=== PATIENT | female | born 2005 | race Native Hawaiian/Other Pacific Islander ===

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

== ENCOUNTER 2024-06-10 11:23 | Outpatient (OUT) | payer OTHER, SELFPAY ==
[2024-06-10 12:31] LABS: HCG Quantitative 69 mIU/mL
== END 2024-06-10 11:24 | disposition home or self-care (01) ==
LOC: LAB 11:26
PROVIDERS: PCP Nurse Practitioner Family; Visit Provider Obstetrics & Gynecology
DX: N92.6 Irregular menstruation, unspecified (principal)
CPT/HCPCS: 36415; 84702

== ENCOUNTER 2024-06-12 11:02 | Outpatient (RCR) | payer OTHER, SELFPAY ==
[2024-06-12 11:52] LABS: HCG Quantitative 42 mIU/mL
== END 2024-06-19 08:23 | disposition home or self-care (01) ==
LOC: LAB 11:02
PROVIDERS: PCP Nurse Practitioner Family; Visit Provider Obstetrics & Gynecology
DX: N92.6 Irregular menstruation, unspecified (principal)
CPT/HCPCS: 36415; 84702

== ENCOUNTER 2024-06-14 13:00 | Outpatient (OUT) | payer OTHER, SELFPAY ==
[2024-06-14 14:07] LABS: HCG Quantitative 18 mIU/mL
== END 2024-06-14 13:01 | disposition home or self-care (01) ==
PROVIDERS: PCP Nurse Practitioner Family; Visit Provider Obstetrics & Gynecology
DX: N92.6 Irregular menstruation, unspecified (principal)
CPT/HCPCS: 36415; 84702

== ENCOUNTER 2024-06-25 14:21 | Outpatient (OUT) | payer OTHER, SELFPAY ==
--- OUTSIDE RECORDS SUMMARY | 2024-06-25 14:32 | XMS_ITS | CCD ---
Author Organization [facility] Care Team Providers Care Hospital Unit Clerk Name Role Phone Iker OLIVAS Primary Care Physician Maddie Dickson Unavailable Lynette Flores Unavailable MD Iker Olivas Primary Care Provider MD Kole Baron Attending Provider Lanny Nieves Unavailable IKER OLIVAS Referring Unavailable IKER OLIVAS Primary Care Unavailable KAISER LOVE Attending Unavailable HAY ., DR GARZA Admitting Unavailable HAY ., DR GARZA Attending Unavailable REQUEST, DR ROMERO LISTED Primary Care Unavaila ble HAY ., DR GARZA Consulting Unavailable MISC, DR ROD Admitting Unavailable MISC, DR ROD Attending Unavailable WNEK, DR IKER Eddy Primary Care Unavailable MISC, DR ROD Consulting Unavailable REQUEST, DR ROMERO LISTED Primary Care Unavaila ble HAY ., DR GARZA Admitting Unavailable HAY ., DR GARZA Attending Unavailable HAY ., DR GARZA Consulting Unavailable REQUEST, DR ROMERO LISTED Primary Care Unavaila ble PAY ., DR DEL ROSARIO Admitting Unavailable PAY ., DR DEL ROSARIO Attending Unavailable ZIEBER, DR DOMO Eddy Consulting Unavailable PAY ., DR DEL ROSARIO Consulting Unavailable STRAWSER, JONI Consulting Unavailable EDUARDO SANTANA Consulting Unavailable [place] Attending Unavailable TRINITY Almendarez Attending Provider [phone] Isabella Almendarez Attending Unavailable Isabella Almendarez Admitting Unavailable NON STAFF Primary Care Unavailable Allergies Allergy Classification Reported Allergen(s) Allergy Type Date of Onset Reaction(s) Facility (9 sources) Latex; Translations: [LATEX] Drug allergy 2 Eruption of skin (disorder) [facility] (3 sources) contact metals 1 Drug allergy Eruption of skin (disorder) [facility] [place] Comment on above: family states pt dev elops rash to alumininum in deoderant, fake jewelry (possibly kp?), etc (3 sources) Coconut extract; Translations: [coconut] Drug Allergy 2 Nausea [facility] (1 source) Iron; Translations: [IRON] Drug Allergy 2 [facility] (2 sources) contact metal agent Drug allergy (disorder) 4 Rash [facility] (1 source) contact metals; Translations: [contact metals] Propensity to adverse reactions (disorder) [facility] (1 source) contact metal agent Drug allergy (disorder) 4 [facility] Medications Current Medications Medication Drug Class(es) Dates Sig (Normalized) Sig (Original) albuterol HFA 90 mcg/inh MDI (2 sources) Start: 03-02-2022 take 2 puff(s) by inhalation every four hours as needed for wheezing albuterol HFA 90 mcg/inh MDI 2 puff(s), Inhalation, q4hr as needed for wheezing, 18 gm, Refill(s) 0, [facility]/pharmacy #[id number], 164, cm, 03/02/22 14:37:00 EDT, Height/Length Dosing, 54.8, kg, 03/02/22 14:37:00 EDT, Weight Dosing Start Date: 03/02/22 Status: Ordered amoxicillin 875 mg oral tablet (1 source) Penicillin-class Antibacterial Start: 07-04-2022 take 1 tablet by mouth every twelve hours Amoxicillin 875 MG 1 tablet Orally every 12 hrs for 7 days Jun, Active amoxicillin 875 mg / clavulanate 125 mg oral tablet (1 source) Penicillin-class Antibacterial Start: 03-16-2022 End: 03-30-2022 take 1 tablet by mouth every twelve hours Augmentin 875 mg oral tablet = 1 tab(s), Oral, q12hr, X 14 day(s), # 28 tab(s), Refills(s) 0, Pharmacy: [facility]/pharmacy #[id number], 161, cm, 03/16/22 14:08:00 EDT, Height/Length Dosing, 55.9, kg, 03/16/22 14:08:00 EDT, Weight Dosing Start Date: 03/16/22 Stop Date: 03/30/22 Status: Ordered cephalexin 500 mg oral capsule (2 sources) Cephalosporin Antibacterial Start: 04-18-2024 take 500 mg by mouth three times daily Cephalexin Active 500 MG PO Three times daily 09 06April 18, 2024 12:00am Start: 02-25-2022 take 1 capsule by [facility] every eight hours Cephalexin 500 MG 1 capsule Orally tid for 10 day(s) Feb, Active cetirizine hydrochloride 10 mg oral tablet (4 sources) Histamine-1 Receptor Antagonist Start: 01-11-2023 take 1 tablet by mouth every twenty-four hours Cetirizine HCl 10 MG 1 tablet Orally Once a day for 30 day(s) Dec, Active Start: 03-02-20[address] [facility] once daily as needed cetirizine 10 mg Tab 10 mg = 1 tab(s), Oral, Daily, PRN for allergy symptoms, # 30 tab(s), Refills(s) 0, Pharmacy: [facility]/pharmacy #[id number], 164, cm, 03/02/22 14:37:00 EDT, Height/Length Dosing, 54.8, kg, 03/02/22 14:37:00 EDT, Weight Dosing Start Date: 03/02/22 Status: Ordered chlorhexidine gluconate 1.2 mg/ml mouthwash (1 source) Start: 07-04-2022 take 10 mL by mouth twice daily Peridex 0.12 % gargle 10 ml Mouth/Throat twice daily Jun, Active fluticasone propionate 0.05 mg/actuat metered dose nasal spray (2 sources) Corticosteroid Start: 01-11-2023 take 1 spray(s) nasal route once daily Fluticasone Propionate 50 MCG/ACT 1 spray in each nostril Nasally Once a day for 30 day(s) Dec, Active methylPREDNISolone 4 mg oral tablet (1 source) Corticosteroid Start: 02-25-2022 Medrol 4 MG as directed Orally as directed for 6 days Feb, Active montelukast 10 mg oral tablet (3 sources) Leukotriene Receptor Antagonist Start: 02-22-2022 take 1 tablet by mouth once daily in the evening montelukast 10 mg Tab 10 mg = 1 tab(s), Oral, qPM, # 30 tab(s), Refills(s) 0, Pharmacy: [facility]/pharmacy #[id number], 165.5, cm, 02/22/22 13:27:00 EDT, Height/Length Dosing, 54, kg, 02/22/22 13:27:00 EDT, Weight Dosing Start Date: 02/22/22 Status: Ordered Completed/Discontinued Medications Medication Drug Class(es) Dates Sig (Normalized) Sig (Original) sulfamethoxazole 800 mg / trimethoprim 160 mg oral tablet (1 source) Dihydrofolate Reductase Inhibitor Antibacterial, Sulfonamide Antimicrobial Start: 04-18-2024 End: 04-18-2024 take 1 tablet by mouth every twelve hours Sulfamethoxazole- Trimethoprim Discontinued 1 TAB PO Every 12 hours 14 7 April 18, 2024 12:00am April 18, 2024 3:05pm Problems Active Problems Problem Classification Problem Date Documented Date Episodic/Chronic Allergic reactions (3 sources) Chronic eczema 12-10-2020 Episodic Anxiety disorders (4 sources) Generalized anxiety disorder; Translations: [Generalized anxiety disorder] Onset: 02-22-2022 Chronic Bacterial infection; unspecified site (1 source) Bacterial infectious disease; Translations: [Other specified bacterial agents as the cause of diseases classified elsewhere] Onset: 03-16-2022 Episodic Genitourinary symptoms and ill-defined conditions (1 source) Dysuria; Translations: [Dysuria] Onset: 04-18-2024 Episodic Headache; including migraine (5 sources) Frequent headache; Translations: [Chronic headache disorder] 01-07-2022 Episodic Other connective tissue disease (3 sources) Hand pain 12-10-2020 Episodic Other female genital disorders (3 sources) Abnormal uterine and vaginal bleeding, unspecified; Translations: [ABNORMAL UTERINE VAGINAL BLEED UNS] Onset: 09-06-2022 Chronic Other female genital disorders (1 source) Other specified abnormal uterine and vaginal bleeding; Translations: [OTH SPEC ABNORMAL UTERINE VAG BLEED] Onset: 09-07-2022 Chronic Other lower respiratory disease (10 sources) Dyspnea; Translations: [Shortness of breath] Onset: 03-02-2022 Episodic Other upper respiratory disease (3 sources) Disorder of pharynx 12-10-2020 Episodic Otitis media and related conditions (2 sources) Other acute nonsuppurative otitis media, left ear Episodic Residual codes; unclassified (3 sources) Feeling nervous 01-07-2022 Episodic Superficial injury; contusion (3 sources) Contusion of elbow 01-07-2022 Episodic Unclassified (3 sources) Finding of body mass index 12-10-2020 Unclassified (3 sources) Patient encounter status 12-09-2020 Urinary tract infections (2 sources) Acute urinary tract infection; Translations: [Urinary tract infection, site not specified] 04-18-2024 Episodic Viral infection (3 sources) Verruca plantaris 01-07-2022 Episodic Past or Other Problems Problem Classification Problem Date Documented Da te Episodic/Chronic Abdominal pain (7 sources) Stomach ache; Translations: [Lower abdominal pain, unspecified] Onset: 11-25-2022 01-07-2022 Episodic Chronic obstructive pulmonary disease and bronchiectasis (1 source) Bronchitis, not specified as acute or chronic Onset: 02-25-2022 Resolved: 02-25-2022 Episodic Conditions associated with dizziness or vertigo (3 sources) Dizziness Onset: 01-29-2019 12-10-2020 Episodic Disorders of teeth and jaw (1 source) Periapical abscess without sinus Onset: 07-04-2022 Resolved: 07-04-2022 Episodic Fracture of upper limb (6 sources) Closed fracture of radius; Translations: [Radial fracture] Resolved: 08-21-2013 Episodic Nonspecific chest pain (4 sources) Chest pain, unspecified; Translations: [Other chest pain] Onset: 11-03-2022 Episodic Other and unspecified benign neoplasm (4 sources) Benign neoplasm of unspecified site of unspecified orbit; Translations: [BENIGN NEOPLASM UNS SITE UNS ORBIT] Onset: 08-16-2022 Episodic Other injuries and conditions due to external causes (1 source) Unspecified injury of left elbow, initial encounter Onset: 01-10-2022 Resolved: 01-10-2022 Episodic Other upper respiratory infections (19 sources) Acute bacterial sinusitis; Translations: [Acute pharyngitis] Onset: 11-03-2021 Resolved: 02-25-2022 01-07-2022 Episodic Syncope (3 sources) Syncope Onset: 01-29-2019 12-10-2020 Episodic Results Test Name Value Interpretation Reference Range Facil ity Urine Cultureon 04-18-2024 Bacteria identified Cx Nom (U) 50,000 colonies/ml mixed bacterial skin contaminants 2 Days PERFORMED BY: [place] [address] PATHOLOGIST CHOKE REAMER MADAN TRIVEDI M.D. Normal [facility] Comment on above: Performed By: #### C UU #### [address] Physician Referralon 024 Physician Referral [id number] Normal [facility] ER URINE PROFILEon 3 Bilirubin Ql (U) Negative Normal NEGATIVE The [facility] Comment on above: Performed By: #### E RUR, PREGU #### [facility] [address] [place] [address] Dr. Mikala Ramsay Clarity (U) CLEAR Normal CLEAR [facility] Comment on above: Performed By: #### E RUR, PREGU #### [facility] [address] [address] [address] Mikala Ramsay Color (U) LT. YELLOW Normal YELLOW [facility] Comment on above: Performed By: #### E RUR, PREGU #### [facility] [address] [address] [address] Mikala Ramsay ERUAHD A micrscopic examination will be performed if indicated. Normal [facility] Comment on above: Performed By: #### E RUR, PREGU #### [facility] [address] [address] [address] Mikala Ramsay Glucose Ql (U) Negative Normal NEGATIVE The [facility] Comment on above: Performed By: #### E RUR, PREGU #### [facility] [address] [address] [address] Mikala Ramsay Hemoglobin Ql (U) Negative Normal NEGATIVE [facility] Comment on above: Performed By: #### E RUR, PREGU #### [facility] [address] [place] [address] Dr. Mikala Ramsay Ketones Ql (U) Negative Normal NEGATIVE [facility] Comment on above: Performed By: #### E RUR, PREGU #### [facility] [address] [place] [address] Dr. Mikala Ramsay LEUKOCYTES Negative Normal NEGATIVE [facility] Comment on above: Performed By: #### E RUR, PREGU #### [facility] [address] [place] [address] Dr. Mikala Ramsay Nitrite Ql (U) Negative Normal NEGATIVE [facility] Comment on above: Performed By: #### E RUR, PREGU #### [facility] [address] [place] [address] Dr. Mikala Ramsay pH (U) 8.0 [pH] Normal 5-9 [facility] Comment on above: Performed By: #### E RUR, PREGU #### [facility] [address] [place] [address] Dr. Mikala Ramsay SPEC GRAVITY 1.015 Normal 1.005-<=1.025 [facility] Comment on above: Performed By: #### E RUR, PREGU #### [facility] [address] [place] [address] Dr. Mikala Ramsay UA PROTEIN Negative Normal NEGATIVE/ TRACE [facility] Comment on above: Performed By: #### E RUR, PREGU #### [facility] [address] [place] [address] Dr. Mikala Ramsay UR MICRO IND NOT INDICATED Normal [facility] Comment on above: Performed By: #### E RUR, PREGU #### [facility] [address] [place] [address] Dr. Mikala Ramsay Urobilinogen Qn (U) 0.2 {Jose'U}/dL Normal 0.2 - 1.0 [facility] Comment on above: Performed By: #### E RUR, PREGU #### [facility] [address] [place] [address] Dr. Mikala Ramsay URon 11-25-2022 , QUAL Negative Normal NEGATIVE [facility] Comment on above: Performed By: #### E RUR, PREGU #### [facility] [address] [place] [address] Dr. Mikala Ramsay US PELVIS TRANSVAGon 023 US PELVIS TRANSVAG US PELVIS TRANSVAG HISTORY: Abdominal pain COMPARISONS: None TECHNIQUE: Real-time sonography of the pelvis was performed. FINDINGS: UTERUS: Normal in size and echogenicity. The uterus measures 7.8 x 4.8 x 3.8 cm. MYOMETRIUM:Unremark able. ENDOMETRIUM: The endometrium is within normal limits. The endometrium measures1.3 cm which is within normal limits. RIGHT OVARY: Within normal limits without suspicious masses or cyst. There is normal blood flow. The right ovary measures 3.3 x 2.4 x 2.1 cm. LEFT OVARY: Within normal limits without suspicious masses or cyst. There is normal blood flow. The left ovary measures 3.7 x 3.0 x 1.7 cm. OTHER:Trace amount of physiologic free fluid adjacent to the right ovary and within the cul-de-sac. IMPRESSION: Unremarkable pelvic ultrasound. Electronically authenticated by: JONI MORALES Date: 2022-11-25 17:05 Normal [facility] XR KUB 1 VIEWon 11-25-2022 XR KUB 1 VIEW EXAMINATION: XR KUB 1 VIEW HISTORY: Pain ; lower abdominal pain, cramping COMPARISON: XR KUB 11/21/2021 FINDINGS: BOWEL GAS PATTERN: No abnormal dilation or deviation. CALCIFICATIONS: None significant. OTHER: Negative. No abnormal gaseous collections. IMPRESSION: 1. No acute or suspicious findings to account for patient's symptoms. Electronically authenticated by: DOMO AN Date: 2022-11-25 14:56 Normal [facility] CBC AUTO DIFFon 09-06-2022 BASO # 0.0 103/ul Normal 0.0-0.1 [facility] Comment on above: Performed By: #### C BC #### [facility] [address] [place], [place] [address] Dr. Mikala Ramsay Basophils/100 WBC (Bld) 0.3 % Normal 0.2-2.0 [facility] Comment on above: Performed By: #### C BC #### [facility] [address] [place] [address] Dr. Mikala Ramsay EO # 0.0 103/ul Normal 0.0-0.7 [facility] Comment on above: Performed By: #### C BC #### [facility] [address] [place] [address] Dr. Mikala Ramsay Eosinophils/100 WBC (Bld) 0.6 % Critically low 0.9-7.0 [facility] Comment on above: Performed By: #### C BC #### [facility] [address] [place] [address] Dr. Mikala Ramsay Erythrocyte distribution width (RBC) [Ratio] 14.0 % Normal 11.0-15.0 [facility] Comment on above: Performed By: #### C BC #### [facility] [address] [place] [address] Dr. Mikala Ramsay Hematocrit (Bld) [Volume fraction] 38.7 % Normal 36.0-48.0 [facility] Comment on above: Performed By: #### C BC #### [facility] [address] [place] [address] Dr. Mikala Ramsay Hemoglobin (Bld) [Mass/Vol] 12.5 g/dL Normal 12.0-16.0 [facility] Comment on above: Performed By: #### C BC #### [facility] [address] [place] [address] Dr. Mikala Ramsay IG # 0.02 10e3/ul Normal 0.00-0.03 [facility] Comment on above: Performed By: #### C BC #### [facility] [address] [place] [address] Dr. Mikala Ramsay IG % 0.3 % Normal 0.0-0.5 [facility] Comment on above: Performed By: #### C BC #### [facility] [address] [place] [address] Dr. Mikala Ramsay LYMPH # 1.2 103/ul Normal 1.2-3.8 [facility] Comment on above: Performed By: #### C BC #### [facility] [address] [address] [address] Mikala Ramsay Lymphocytes/100 WBC (Bld) 17.4 % Critically low 20.5-60.0 [facility] Comment on above: Performed By: #### C BC #### [facility] [address] [address] [address] Mikala Ramsay MANUAL DIFF REQ NO Normal [facility] Comment on above: Performed By: #### C BC #### [facility] [address] [place] [address] Dr. Mikala aRmsay MCH (RBC) [Entitic mass] 26.0 pg Critically low 26.7-34.0 [facility] Comment on above: Performed By: #### C BC #### [facility] [address] [place] [address] Dr. Mikala Ramsay MCHC (RBC) [Mass/Vol] 32.3 g/dL Normal 29.9-35.2 [facility] Comment on above: Performed By: #### C BC #### [facility] [address] [place] [address] Dr. Mikala Ramsay MCV (RBC) [Entitic vol] 80.5 fL Critically low 81.0-99.0 [facility] Comment on above: Performed By: #### C BC #### [facility] [address] [place] [address] Dr. Mikala Ramsay MONO # 0.4 103/ul Normal 0.3-0.8 [facility] Comment on above: Performed By: #### C BC #### [facility] [address] [place] [address] Dr. Mikala Ramsay Monocytes/100 WBC (Bld) 5.9 % Normal 1.7-12.0 [facility] Comment on above: Performed By: #### C BC #### [facility] [address] [place] [address] Dr. Mikala Ramsay NEUT # 5.0 103/ul Normal 1.4-6.5 [facility] Comment on above: Performed By: #### C BC #### [facility] [address] [address] [address] Mikala Ramsay Neutrophils/100 WBC (Bld) 75.5 % Critically high 43.0-75.0 [facility] Comment on above: Performed By: #### C BC #### [facility] [address] [place] [address] Dr. Mikala Ramsay Platelet mean volume (Bld) [Entitic vol] 9.2 fL Critically low 9.5-13.5 [facility] Comment on above: Performed By: #### C BC #### [facility] [address] [address] [address] Mikala Ramsay PLT 286 103/ul Normal 150-450 [facility] Comment on above: Performed By: #### C BC #### [facility] [address] [place] [address] Dr. Mikala Ramsay RBC 4.81 106/ul Normal 4.20-5.40 [facility] Comment on above: Performed By: #### C BC #### [facility] [address] [place] [address] Dr. Mikala Ramsay WBC 6.7 103/ul Normal 4.0-11.0 [facility] Comment on above: Performed By: #### C BC #### [facility] [address] [place] [address] Dr. Mikala Ramsay PREG HCG QUALon 09-06-2022 , QUAL Negative Normal NEGATIVE [facility] Comment on above: Performed By: #### P REG #### [facility] [address] [place] [address] Dr. Mikala Ramsay PROF CHEM 8 (BAS METB)on Anion gap [Moles/Vol] 11.1 mmol/L Normal [facility] Comment on above: Performed By: #### B MP #### [facility] [address] [place] [address] Dr. Mikala Ramsay Calcium [Mass/Vol] 9.0 mg/dL Normal 8.5-10.1 [facility] Comment on above: Performed By: #### B MP #### [facility] [address] [address] [address] Mikala Ramsay Chloride [Moles/Vol] 106 mmol/L Normal 98-107 [facility] Comment on above: Performed By: #### B MP #### [facility] [address] [address] [address] Mikala Ramsay CO2 [Moles/Vol] 25.6 mmol/L Normal 21.0-32.0 [facility] Comment on above: Performed By: #### B MP #### [facility] [address] [address] [address] Mikala Ramsay Creatinine [Mass/Vol] 0.72 mg/dL Normal 0.55-1.02 [facility] Comment on above: Performed By: #### B MP #### [facility] [address] [place] [address] Dr. Mikala Ramsay EGFR-AF CITIZEN OF [place] >60 Normal >=60 [facility] Comment on above: Performed By: #### B MP #### [facility] [address] [place] [address] Dr. Mikala Ramsay EGFR-NON AF CITIZEN OF [place] >60 Normal >=60 [facility] Comment on above: Performed By: #### B MP #### [facility] [address] [address] [address] Mikala Ramsay Glucose [Mass/Vol] 84 mg/dL Normal 74-106 [facility] Comment on above: Performed By: #### B MP #### [facility] [address] [place] [address] Dr. Mikala Ramsay Potassium [Moles/Vol] 3.7 mmol/L Normal 3.5-5.1 [facility] Comment on above: Performed By: #### B MP #### [facility] [address] [address] [address] Mikala Ramsay Sodium [Moles/Vol] 139 mmol/L Normal 136-145 [facility] Comment on above: Performed By: #### B MP #### [facility] [address] [address] [address] Mikala Rmasay Urea nitrogen [Mass/Vol] 10.0 mg/dL Normal 6.4-19.3 [facility] Comment on above: Performed By: #### B MP #### [facility] [address] [place] [address] Dr. Mikala Ramsay Urea nitrogen/Creatinin e [Mass ratio] 13.9 mg/mg Normal [facility] Comment on above: Performed By: #### B MP #### [facility] [address] [place] [address] Dr. Mikala Ramsay CBC AUTO DIFFon 08-16-2022 BASO # 0.0 103/ul Normal 0.0-0.1 [facility] Comment on above: Performed By: #### C BC #### [facility] [address] [place] [address] Dr. Mikala Ramsay Basophils/100 WBC (Bld) 0.6 % Normal 0.2-2.0 [facility] Comment on above: Performed By: #### C BC #### [facility] [address] [place] [address] Dr. Mikala Ramsay EO # 0.1 103/ul Normal 0.0-0.7 [facility] Comment on above: Performed By: #### C BC #### [facility] [address] [place] [address] Dr. Mikala Ramsay Eosinophils/100 WBC (Bld) 1.3 % Normal 0.9-7.0 [facility] Comment on above: Performed By: #### C BC #### [facility] [address] [place] [address] Dr. Mikala Ramsay Erythrocyte distribution width (RBC) [Ratio] 14.5 % Normal 11.0-15.0 [facility] Comment on above: Performed By: #### C BC #### [facility] [address] [place] [address] Dr. Mikala Ramsay Hematocrit (Bld) [Volume fraction] 37.6 % Normal 36.0-48.0 [facility] Comment on above: Performed By: #### C BC #### [facility] [address] [place] [address] Dr. Mikala Ramsay Hemoglobin (Bld) [Mass/Vol] 12.2 g/dL Normal 12.0-16.0 [facility] Comment on above: Performed By: #### C BC #### [facility] [address] [place] [address] Dr. Mikala Ramsay IG # 0.02 10e3/ul Normal 0.00-0.03 [facility] Comment on above: Performed By: #### C BC #### [facility] [address] [place] [address] Dr. Mikala Ramsay IG % 0.3 % Normal 0.0-0.5 [facility] Comment on above: Performed By: #### C BC #### [facility] [address] [place] [address] Dr. Mikala Ramsay LYMPH # 2.1 103/ul Normal 1.2-3.8 [facility] Comment on above: Performed By: #### C BC #### [facility] [address] [place] [address] Dr. Mikala Ramsay Lymphocytes/100 WBC (Bld) 33.4 % Normal 20.5-60.0 [facility] Comment on above: Performed By: #### C BC #### [facility] [address] [place] [address] Dr. Mikala Ramsay MANUAL DIFF REQ NO Normal [facility] Comment on above: Performed By: #### C BC #### [facility] [address] [place] [address] Dr. Mikala Ramsay MCH (RBC) [Entitic mass] 26.2 pg Critically low 26.7-34.0 [facility] Comment on above: Performed By: #### C BC #### [facility] [address] [place] [address] Dr. Mikala Ramsay MCHC (RBC) [Mass/Vol] 32.4 g/dL Normal 29.9-35.2 [facility] Comment on above: Performed By: #### C BC #### [facility] [address] [place] [address] Dr. Mikala Ramsay MCV (RBC) [Entitic vol] 80.7 fL Critically low 81.0-99.0 [facility] Comment on above: Performed By: #### C BC #### [facility] [address] [place] [address] Dr. Mikala Ramsay MONO # 0.4 103/ul Normal 0.3-0.8 [facility] Comment on above: Performed By: #### C BC #### [facility] [address] [place] [address] Dr. Mikala Ramsay Monocytes/100 WBC (Bld) 6.2 % Normal 1.7-12.0 [facility] Comment on above: Performed By: #### C BC #### [facility] [address] [place] [address] Dr. Mikala Ramsay NEUT # 3.7 103/ul Normal 1.4-6.5 [facility] Comment on above: Performed By: #### C BC #### [facility] [address] [place] [address] Dr. Mikala Ramsay Neutrophils/100 WBC (Bld) 58.2 % Normal 43.0-75.0 [facility] Comment on above: Performed By: #### C BC #### [facility] [address] [place] [address] Dr. Mikala Ramsay Platelet mean volume (Bld) [Entitic vol] 9.3 fL Critically low 9.5-13.5 [facility] Comment on above: Performed By: #### C BC #### [facility] [address] [place] [address] Dr. Mikala Ramsay PLT 310 103/ul Normal 150-450 [facility] Comment on above: Performed By: #### C BC #### [facility] [address] [place] [address] Dr. Mikala Ramsay RBC 4.66 106/ul Normal 4.20-5.40 [facility] Comment on above: Performed By: #### C BC #### [facility] [address] [place] [address] Dr. Mikala Ramsay WBC 6.3 103/ul Normal 4.0-11.0 [facility] Comment on above: Performed By: #### C BC #### [facility] [address] [address] [address] Mikala Ramsay XR elbow LT min 3V*on 2021 XR elbow LT min 3V* [facility] Other XR elbow LT min 3V* [facility] Other XR elbow LT min 3V* [address] [place] [address] [facility] Other XR elbow LT min 3V* [place] [address] [facility] Other XR elbow LT min 3V* XRay Report [facility] Other XR elbow LT min 3V* Signed [facility] Other XR elbow LT min 3V* Patient: Shilpi Ware MR#: [id number] [facility] Other XR elbow LT min 3V* : 2005 Acct:[id number] [facility] Other XR elbow LT min 3V* Age/Sex: 16 / F ADM Date: 01/10/22 [facility] Other XR elbow LT min 3V* Loc: XDUCLY Room: Type: [facility] Other XR elbow LT min 3V* Attending Dr: Lynette GUILLERMO [facility] Other XR elbow LT min 3V* Ordering Provider: LYNETTE FLORES [facility] Other XR elbow LT min 3V* Date of Service: 01/10/22 [facility] Other XR elbow LT min 3V* XR/XR elbow LT min 3V*: Injury of left elbow, initial encounter [facility] Other XR elbow LT min 3V* Copies to: LYNETTE FLORES DENTAL SALES REPRESENTATIVE-C [facility] Other XR elbow LT min 3V* XR elbow LT min 3V* 01/10/2022 10:51 AM [facility] Other XR elbow LT min 3V* SIGNS AND SYMPTOMS: Injury of left elbow, left elbow pain [facility] Other XR elbow LT min 3V* PROTOCOL: Frontal, lateral, and oblique radiographs of the left elbow [facility] Other XR elbow LT min 3V* COMPARISON: None [facility] Other XR elbow LT min 3V* FINDINGS: [facility] Other XR elbow LT min 3V* There is no fracture or dislocation. No joint effusion. No soft tissue swelling. The joint spaces [facility] Other XR elbow LT min 3V* are preserved. [facility] Other XR elbow LT min 3V* XR/XR elbow LT min 3V* [facility] Other XR elbow LT min 3V* IMPRESSION: [facility] Other XR elbow LT min 3V* No acute bony injury. [facility] Other XR elbow LT min 3V* Impression dictated by: Johnson Grijalva M.D.01/10/2022 11:26 AM [facility] Other XR elbow LT min 3V* Dictation Location: [facility] Other XR elbow LT min 3V* Transcribed By: YESSY 01/10/22 [facility] Other XR elbow LT min 3V* Dictated By: Johnson Grijalva II, MD 01/10/22 [facility] Other XR elbow LT min 3V* Signed By: [facility] Other XR elbow LT min 3V* 01/10/22 1126 [facility] Other [facility] St[facility] 11-03-2021 S. pyogenes Org specific cx Ql (Throat) Negative [facility] Other Quick Strep [facility] Other Vital Signs Date Time Vital Sign Value Performing Clinician Facility 04-18-2024 14:41-0400 Body height 162.56 cm COPYING MACHINE REPAIRER Isabellayong Almendarez Work Phone: [facility] 04-18-2024 14:41-0400 Body mass index (BMI) [Ratio] 20.8 kg/m2 COPYING MACHINE REPAIRER Isabellayong Almendarez Work Phone: [facility] 04-18-2024 14:41-0400 Body temperature 98.8 [degF] COPYING MACHINE REPAIRERBetzy Almendarez Work Phone: [facility] 04-18-2024 14:41-0400 Body weight 54.99 kg COPYING MACHINE REPAIRER Isabella Tanesha Work Phone: [facility] 04-18-2024 14:41-0400 Heart rate 67 /min COPYING MACHINE REPAIRER Isabellayong Almendarez Work Phone: [facility] 04-18-2024 14:41-0400 Respiratory rate 18 /min COPYING MACHINE REPAIRER Isabellayong Almendarez Work Phone: [facility] 04-18-2024 14:41-0400 SaO2% (BldA) [Mass fraction] 98 % COPYING MACHINE REPAIRER Isabellayong Almendarez Work Phone: [facility] 01-11-2023 17:10-0500 Body height 163.83 cm Lynette Flores Other [facility] Other 01-11-2023 17:10-0500 Body mass index (BMI) [Ratio] 19.94 kg/m2 Lynette Flores Other [facility] Other 01-11-2023 17:10-0500 Body temperature 98.2 [degF] Lynette Flores Other [facility] Other 01-11-2023 17:10-0500 Body weight 53.52 kg Lynette Flores Other [facility] Other 01-11-2023 17:10-0500 Respiratory rate 18 /min Lynette Flores Other [facility] Other 01-11-2023 17:10-0500 SaO2% (BldA) [Mass fraction] 99 % Lynette Flores Other [facility] Other 12-13-2022 16:30-0500 Body height 162.56 cm Lanny Nieves Other [facility] Other 12-13-2022 16:30-0500 Body mass index (BMI) [Ratio] 20.25 kg/m2 Lanny Nieves Other [facility] Other 12-13-2022 16:30-0500 Body temperature 97.2 [degF] Lanny Nieves Other [facility] Other 12-13-2022 16:30-0500 Body weight 53.52 kg Lanny Nieves Other [facility] Other 12-13-2022 16:30-0500 Respiratory rate 18 /min Lanny Nieves Other [facility] Other 12-13-2022 16:30-0500 SaO2% (BldA) [Mass fraction] 99 % Lanny Nieves Other [facility] Other 07-04-2022 17:25-0400 Body height 163.83 cm Lynette Flores Other [facility] Other 07-04-2022 17:25-0400 Body mass index (BMI) [Ratio] 19.77 kg/m2 Lynette Flores Other [facility] Other 07-04-2022 17:25-0400 Body temperature 97.8 [degF] Lynette Batesault Other [facility] Other 07-04-2022 17:25-0400 Body weight 53.07 kg Lynette Flores Other [facility] Other 07-04-2022 17:25-0400 Diastolic blood pressure 65 mm[Hg] Lynette Batesault Other [facility] Other 07-04-2022 17:25-0400 Respiratory rate 18 /min Lynette Flores Other [facility] Other 07-04-2022 17:25-0400 SaO2% (BldA) [Mass fraction] 100 % Lynette Batesault Other [facility] Other 07-04-2022 17:25-0400 Systolic blood pressure 110 mm[Hg] Lynette Batesault Other [facility] Other 03-16-2022 14:01-0400 Blood Pressure Location Iker JHONNYEK [facility] [place] 03-16-2022 14:01-0400 Body temperature 97.7 [degF] Iker WNEK [facility] [place] 03-16-2022 14:01-0400 Diastolic blood pressure 68 mm[Hg] Iker WNEK [facility] [place] 03-16-2022 14:01-0400 Heart rate 76 /min Iker WNEK [facility] [place] 03-16-2022 14:01-0400 Respiratory rate 18 /min Iker WNEK [facility] [place] 03-16-2022 14:01-0400 SaO2% (BldA) [Mass fraction] 98 % Iker WNEK [facility] [place] 03-16-2022 14:01-0400 Systolic blood pressure 120 mm[Hg] Iker WNEK [facility] [place] 03-02-2022 14:34-0400 Blood Pressure Location Iker WNEK [facility] [place] 03-02-2022 14:34-0400 Body temperature 98.24 [degF] Iker WNEK [facility] [place] 03-02-2022 14:34-0400 Diastolic blood pressure 60 mm[Hg] Iker WNEK [facility] [place] 03-02-2022 14:34-0400 Heart rate 76 /min Iker WNEK [facility] [place] 03-02-2022 14:34-0400 Respiratory rate 18 /min Iker OLIVAS [facility] [place] 03-02-2022 14:34-0400 SaO2% (BldA) [Mass fraction] 98 % Iker OLIVAS [facility] [place] 03-02-2022 14:34-0400 Systolic blood pressure 118 mm[Hg] Iker OLIVAS [facility] [place] 02-25-2022 10:15-0400 Body height 163.83 cm Maddie Dickson Other [facility] Other 02-25-2022 10:15-0400 Body mass index (BMI) [Ratio] 19.26 kg/m2 Maddie Dickson Other [facility] Other 02-25-2022 10:15-0400 Body temperature 97.1 [degF] Maddie Dickson Other [facility] Other 02-25-2022 10:15-0400 Body weight 51.71 kg Maddie Dickson Other [facility] Other 02-25-2022 10:15-0400 SaO2% (BldA) [Mass fraction] 99 % Maddie Dickson Other [facility] Other 02-22-2022 13:23-0400 Blood Pressure Location Marli Chet [facility] [place] 02-22-2022 13:23-0400 Body temperature 97.34 [degF] Marli Chet [facility] [place] 02-22-2022 13:23-0400 Diastolic blood pressure 70 mm[Hg] Marli Chet [facility] [place] 02-22-2022 13:23-0400 Heart rate 80 /min Marliannia Rosenberg [facility] [place] 02-22-2022 13:23-0400 Respiratory rate 16 /min Marli Olds [facility] [place] 02-22-2022 13:23-0400 SaO2% (BldA) [Mass fraction] 98 % Marli Rosenberg [facility] [place] 02-22-2022 13:23-0400 Systolic blood pressure 118 mm[Hg] Marli Olds [facility] [place] 01-10-2022 11:30-0500 Body height 162.56 cm Lynette Flores Other [facility] Other 01-10-2022 11:30-0500 Body mass index (BMI) [Ratio] 21.45 kg/m2 Lynette Flores Other [facility] Other 01-10-2022 11:30-0500 Body temperature 96.9 [degF] Lynette Conrado Other [facility] Other 01-10-2022 11:30-0500 Body weight 56.7 kg Lynette Conrado Other [facility] Other 01-10-2022 11:30-0500 Diastolic blood pressure 69 mm[Hg] Lynette Flores Other [facility] Other 01-10-2022 11:30-0500 Respiratory rate 18 /min Lynette Flores Other [facility] Other 01-10-2022 11:30-0500 SaO2% (BldA) [Mass fraction] 99 % Lynette Flores Other [facility] Other 01-10-2022 11:30-0500 Systolic blood pressure 121 mm[Hg] Lynette Flores Other [facility] Other 11-03-2021 17:45-0500 Body height 162.56 cm Maddie Dickson Other [facility] Other 11-03-2021 17:45-0500 Body mass index (BMI) [Ratio] 21.8 kg/m2 Maddie Rosasmond Other [facility] Other 11-03-2021 17:45-0500 Body temperature 97.8 [degF] Maddie Rosasmond Other [facility] Other 11-03-2021 17:45-0500 Body weight 57.61 kg Maddie Rosasmond Other [facility] Other 11-03-2021 17:45-0500 Respiratory rate 18 /min Maddie Rosasmond Other [facility] Other 11-03-2021 17:45-0500 SaO2% (BldA) [Mass fraction] 99 % Maddie Yessi Other [facility] Other Encounters Encounter Date Encounter Type Care Provider Facility Start: 04-18-2024 End: 04-18-2024 ambulatory Isabella Almendarez [facility] Work Phone: Start: 04-18-2024 End: 04-18-2024 Departed Referred TRINITY Fajardoyong Almendarez Work Phone: [facility] [place] Work Phone: Start: 04-18-2024 End: 04-18-2024 Patient encounter procedure COPYING MACHINE REPAIRER Isabellayong Almendarez Work Phone: [facility] Work Phone: Start: 12-29-2023 ambulatory Facility:Daxa Dillon Start: 11-27-2023 End: 11-27-2023 ambulatory HO JAYLEN Not Available Start: 01-11-2023 End: 01-11-2023 ambulatory Lynette Flores Other [facility] Other Start: 01-11-2023 Office outpatient visit 25 minutes Lynette Flores [facility] Start: 12-13-2022 End: 12-13-2022 ambulatory Lanny Nieves Other [facility] Other Start: 12-13-2022 Office outpatient visit 15 minutes Lanny Nieves [facility] Start: 11-25-2022 End: 11-25-2022 ambulatory NONE LISTED REQUEST Facility:[facility] Start: 11-03-2022 End: 11-03-[address] NONE LISTED REQUEST Facility:[facility] Start: 09-06-2022 End: 09-06-[address] GREG BO . Facility:[facility] Start: 08-18-2022 End: 08-18-2022 ambulatory MD Iker Olivas Work Phone: [facility] Work Phone: Start: 08-18-2022 End: 08-18-2022 Departed Referred MD Iker Olivas Work Phone: [facility] [place] Start: 08-16-2022 End: 08-17-[address] DOCTOR BERRY Facility: Start: 07-04-2022 End: 07-04-2022 ambulatory Lynette Flores Other [facility] Other Start: 07-04-2022 Office outpatient visit 15 minutes Lynette Flores [facility] Start: 05-05-2022 End: 05-05-2022 ambulatory IKER OLIVAS [facility] Start: 03-16-2022 End: 03-16-2022 Patient encounter procedure Iker OLIVAS [facility] [place] Start: 03-02-2022 End: 03-02-2022 Patient encounter procedure Iker OLIVAS [facility] [place] Start: 02-25-2022 End: 02-25-2022 ambulatory Maddie Dickson Other [facility] Other Start: 02-25-2022 Office outpatient visit 25 minutes Maddiekevin Dickson [facility] Start: 02-22-2022 End: 02-22-2022 Patient encounter procedure Marli Rosenberg [facility] [place] Start: 01-10-2022 End: 01-10-2022 ambulatory Lynette Flores Other [facility] Other Start: 01-10-2022 Office outpatient visit 15 minutes Lynette Flores [facility] Start: 11-03-2021 End: 11-03-2021 ambulatory Maddie Yessi Other [place] [facility] Other Start: 11-03-2021 Office outpatient visit 15 minutes Maddie Yessi [facility] Procedures Date Procedure Procedure Detail Performing Clinician Start: 11-20-2007 Dentition (body structure) Marli Rosenberg Comment on above: multiple surgeries w agatha davis per Shilpi. Plan of Treatment Date Care Activity Detail Author Start: 04-19-2024 Bacteria identified in Urine by Culture [facility] Start: 04-18-2024 Bacteria identified in Urine by Culture [facility] Immunizations Immunization Date Immunization Notes Care Provider Gulshan nunes 12-10-2020 hepatitis A vaccine, pediatric/adolescent dosage, 2 dose schedule Marli Rosenberg [facility] [place] 12-10-2020 meningococcal polysaccharide (groups A, C, Y and W-135) diphtheria toxoid conjugate vaccine (MCV4P) Marli Rosenberg [facility] [place] 09-01-2016 meningococcal ACWY vaccine, unspecified formulation Marli Rosenberg [facility] [place] 09-01-2016 tetanus toxoid, redu matthieu diphtheria toxoid, and acellular pertussis vaccine, adsorbed Marliannia Rosenberg [facility] [place] 12-10-2013 influenza virus vacc ine, unspecified formulation Marli Rosenberg [facility] [place] 12-11-2008 influenza virus vacc ine, unspecified formulation Marli Rosenberg [facility] [place] 05-01-2008 diphtheria, tetanus toxoids and acellular pertussis vaccine Marli Rosenberg [facility] [place] 05-01-2008 hepatitis B vaccine, adult dosage Marli Rosenberg [facility] [place] 05-01-2008 measles, mumps and rubella virus vaccine Marli Rosenberg [facility] [place] 05-01-2008 poliovirus vaccine, unspecified formulation Marli Rosenberg [facility] [place] 05-01-2008 varicella virus vaccine Brittney otilia Rosenberg [facility] [place] 03-16-2005 diphtheria, tetanus toxoids and acellular pertussis vaccine Marli Rosenberg [facility] [place] 03-16-2005 haemophilus influenz ae type b vaccine, HbOC conjugate Marli Rosenberg [facility] [place] 03-16-2005 measles, mumps and rubella virus vaccine Marli Rosenberg [facility] [place] 03-16-2005 pneumococcal conjuga te vaccine, 13 valent Marli Rosenberg [facility] [place] 03-16-2005 varicella virus vaccine Brittney abeth Chet [facility] [place] 2004 influenza virus vacc ine, unspecified formulation Marliannia Rosenberg [facility] [place] 2004 diphtheria, tetanus toxoids and acellular pertussis vaccine Marli Norwood [facility] [place] 2004 haemophilus influenz ae type b vaccine, HbOC conjugate Marli Norwood [facility] [place] 2004 hepatitis B vaccine, adult dosage Marli Norwood [facility] [place] 2004 pneumococcal conjuga te vaccine, 13 valent Marli Norwood [facility] [place] 2004 poliovirus vaccine, unspecified formulation Marli Norwood [facility] [place] 2004 diphtheria, tetanus toxoids and acellular pertussis vaccine Marli Norwood [facility] [place] 2004 haemophilus influenz ae type b vaccine, HbOC conjugate Marli Norwood [facility] [place] 2004 hepatitis B vaccine, adult dosage Marli Norwood [facility] [place] 2004 pneumococcal conjuga te vaccine, 13 valent Marli Norwood [facility] [place] 2004 poliovirus vaccine, unspecified formulation Marli Norwood [facility] [place] 2004 diphtheria, tetanus toxoids and acellular pertussis vaccine Marli Rosenberg [facility] [place] 2004 haemophilus influenz ae type b vaccine, HbOC conjugate Marli Rosenberg [facility] [place] 2004 hepatitis B vaccine, adult dosage Marli Rosenberg [facility] [place] 2004 pneumococcal conjuga te vaccine, 13 valent Marli Rosenberg [facility] [place] 2004 poliovirus vaccine, unspecified formulation Marli Rosenberg [facility] [place] Payers Date Payer Category Payer Self-pay [id number] 2023 Private Health Insurance [id number] 2004 Unknown [id number] 2004 Unknown [id number] 2004 Unknown [id number] 2004 Unknown [id number] 2004 Unknown [id number] 1984 Unknown [id number] 1959 Unknown [id number] 2.16. [id number] 1959 Unknown [id number] 2.16.8 [id number] 1959 Unknown [id number] [id number]. [id number] Medicaid [id number] Unknown Farley BC/BS [id number] Unknown [id number] [id number] Unknown [id number] Social History Date Type Detail Facility Start: 01-07-2022 End: 01-11-2023 Tobacco smoking status Never smoked tobacco (finding) [facility] Other Tobacco smoking status Never [facility] [place] Sex Assigned At Female [facility] Other Start: 2005 Sex Assigned At Female F [facility] Clinical Notes 08-21-2013 to 01-11-2023 Note Date & Type Note Facility 01-11-2023 Evaluation note Encounter Date Diagnosis Assessment Notes Dec, Acute effusion of left ear (ICD-10 - H65.192) try this medication and referral sent to ENT since conservative treatment has been used by urgent care and PCP without improvement of symptoms. [facility] Other 01-24-2023 Evaluation note* Encounter Date Diagnosis Assessment Notes Treatment Notes Treatment Clinical Notes Nov, Acute effusion of left ear (ICD-10 - H65.192) Discussed diagnosis with patient, explained to patient that there is middle ear fluid without signs of bacterial infection, antibiotics are not indicated at this time. This is commonly due to ET dysfunction, viral illness, allergies, barotrauma, or recent AOM. Advised patient that fluid in middle ear may take several weeks to resolve. Take rx medications as directed. Supportive treatment as directed, push fluids/test, Tylenol for discomfort. Follow up with PCP in 2 weeks or sooner for new or worsening symptoms. Patient verbalizes understanding and is agreeable to treatment plan [facility] Other 08-15-2022 Evaluation note* Encounter Date Diagnosis Assessment Notes Treatment Notes Treatment Clinical Notes Jun, Tooth infection (ICD-10 - K04.7) Take medications as directed.Highly encourage patient to contact dentist CARLY for further treatment of infection. Ok to take OTC medications like ibuprofen with prescriptions [facility] Other 06-16-2022 GeraldShilpi Ware is here for consultation at the request of Iker Olivas MD for: Constipation ---History from parent and patient History of Present Illness My advice was requested by Iker Olivas MD. She is accompanied by her mother and sibling(s). No waste elimination was used. ABD pain - Patient has been having recurrent issues ---mainly LLQ ---Cramping or sharp ---Not everyday, but several days per week ---NO waking at night Stooling - Irregular ---NO blood noted ---? may feel better after stooling ---Patient was on Miralax and improving, but was stopped due to worry about interaction with other medication UO - NO issues ---NO hematuria or UTI N/V - NO recurrent issues ---has had TRAV in the past as well, and still an issue ---Not improved previously with Prilosec Appetite - Up and down ---diet may not be the best - limited, and not overly healthy Growth - NO weight loss ---BMI - 20.6; 40th% Activity - Regular ---no restrictions Fevers - NO issues Rashes - No recurrent issues Joints - No pain or swelling Mouth - No sores Eyes - No pain or swelling Currently - Overall, still having TRAV issues as well as stooling issues Past Medical History Past Medical History: Diagnosis Date GERD (gastroesophageal reflux disease) Past Surgical History History reviewed. No pertinent surgical history. Allergies Allergies Allergen Reactions Iron Metal [Iron] Hives Latex Hives Medications No outpatient encounter medications on file as of 05/05/2022. No facility-administered encounter medications on file as of 05/05/2022. Family Medical History Family History Problem Relation Age of Onset Heart Surgery Maternal Grandmother Social History Social History Socioeconomic History Marital status: Single Spouse name: None Number of children: None Years of education: None Highest education level: None Tobacco Use Smoking status: Never Smokeless tobacco: Never Diet Social History Alternative meds, herbals, OTC meds and vitamins documented in medication section? No Review of Systems Review of Systems Constitutional: Positive for weight gain. Negative for recurrent fevers and weight loss. HENT: Negative for trouble swallowing. Eyes: Positive for wears glasses. Respiratory: Negative for coughing, wheezing and asthma. Cardiovascular: Negative for heart murmur, heart problems and chest pain. Endocrine: Negative for poor growth. Gastrointestinal: Positive for constipation, heartburn, abdominal pain and nausea. Negative for diarrhea, vomiting, blood in stool and trouble swallowing. Genitourinary: Negative for dysuria, hematuria and frequent urination. Neurological: Negative for developmental delays and seizures. Musculoskeletal: Negative for joint pain. Skin: Negative for rash. Allergy/Immune: Negative for allergies. Hematology: Negative for no easy bleeding and no anemia. The patient's past medical, surgical history, family history, and medications were reviewed and updated in EPIC (electronic medical record). Physical Examination Vitals: 05/05/22 0910 BP: 103/71 Pulse: 93 BP Readings from Last 2 Encounters: 05/05/22 103/71 05/07/21 111/71 (57 %, Z = 0.18 / 76 %, Z = 0.71)* *BP percentiles are based on the 2017 AAP Clinical Practice Guideline for girls Weight - Scale: 55.4 kg Height: 164 cm Body mass index is 20.6 kg/m . Physical Exam Vitals reviewed. Constitutional: General: She is active. Appearance: She is well-developed and well-nourished. She is not overweight and not thin. HENT: Mouth/Throat: Mouth: Mucous membranes are moist. Eyes: Conjunctiva/sclera: Conjunctivae normal. Cardiovascular: Heart sounds: No murmur heard. Pulmonary: Effort: Pulmonary effort is normal. Breath sounds: Normal breath sounds. Abdominal: General: Bowel sounds are normal. There is no distension. Palpations: Abdomen is soft. Abdomen is not rigid. There is no hepatosplenomegaly. Tenderness: There is abdominal tenderness in the epigastric area and left lower quadrant. There is no CVA tenderness, guarding or rebound. Musculoskeletal: Cervical back: Normal range of motion. Neurological: Mental Status: She is alert. Skin: General: Skin is warm. Coloration: Skin is not jaundiced or pale. Findings: No petechiae. Nails: There is no cyanosis. Lab Results None Imaging Findings No results found. Assessment Shilpi is an 17yo female with issues of chronic constipation. Patient was improved on Miralax - but then stopped due to ? of issue of interaction with other medication. Issues have been chronic - may be more diet related/Functional. Patient also with longstanding issues of TRAV as well - not helped previously with Prilosec. Plan Labs - Several days for results ---CBC, LFT, BMP, ESR/CRP, Amylase/Lipase, Celiac, Thyroid ABD Ultrasound - next day for results Protonix - 40mg per day Mirala (more content not included)...[facility]04-13-2022 Hospital Discharge instructions Follow Up Care 03/02/2022 15:03:01 With:Iker OLIVAS MD, PED Address: [address] [place] [address]- When:03/30/2022 Comments:recheck dyspnea/chest pain [facility] [place] 04-13-2022 Hospital Discharge instructions Follow Up Care 03/02/2022 09:25:52 With:Iker OLIVAS MD, PED Address: [address] [place] [address]. [place] [place] [address]- When:03/16/2022 Comments:recheck SOB [facility] [place] 04-08-2022 Evaluation note* Encounter Date Diagnosis Assessment Notes Treatment Notes Treatment Clinical Notes Feb, Acute sinusitis, recurrence not specified, unspecified location (ICD-10 - J01.90) Drink plenty fluids, get plenty of rest. Take cephalexin as prescribed until gone. Take the Medrol Dosepak as prescribed until gone. Take Tylenol Motrin for aches pains or fevers. Follow-up with your family physician if no improvement in 2 to 3 days. Feb, Bronchitis (ICD-10 - J40) [facility] 04-05-2022 Hospital Discharge instructions Follow Up Care 02/22/2022 08:51:47 With:Chet DENTON, Marli ENRIQUE Address: When: Unknown Comments:f/up in 2 months for recheck anxiety [facility] [place] 02-21-2022 Evaluation note* Encounter Date Diagnosis Assessment Notes Treatment Notes Treatment Clinical Notes Dec, Injury of left elbow, initial encounter (ICD-10 - S59.902A) Use RICE therapy as discussed: Rest, Ice Compression, Elevate. Apply ice to affected area 3-4 times daily (Do not place ice source directly on skin, must cover with towel-like material). Use OTC as directed for pain if needed. Contact office if symptoms are not improved within the next few days and we will help you get into specialist. [facility] Other 12-15-2021 Evaluation note* Encounter Date Diagnosis Assessment Notes Treatment Notes Treatment Clinical Notes Oct, Sore throat (ICD-10 - J02.9) Oct, Viral pharyngitis (ICD-10 - J02.9) Drink plenty of fluids, get plenty of rest. Tylenol or Motrin for aches pains or fevers. Follow-up with family physician if no improvement in 2 to 3 days for [facility] Other 10-02-2013 History general Narrative - Reported* Type Description Date Medical History eczema Medical History reactive airway Medical History Radial fracture (resolved 2012) Medical History Strep throat (resolved 1) Surgical History dental reconstruction age 1 [facility] 10-02-2013 History general Narrative - Reported* Type Description Date Medical History eczema Medical History reactive airway Medical History Radial fracture (resolved 2012) Medical History Strep throat (resolved 1) Surgical History dental reconstruction age 1 Surgical History Cyst Removal Left eye 08/2022 [facility] Other Evaluation + Plan note Referrals to Other Providers Referred by: Marli Rosenberg MD [facility] [place] Evaluation + Plan note Future Appointments Appointment Date:03/16/2022 02:00:00 PM Scheduled Provider:Iker OLIVAS MD Location:[facility] [place] Appointment Type:Peds OV 10 Referrals to Other Providers Referred by: Iker OLIVAS MD [facility] [place] Evaluation + Plan note Future Appointments Appointment Date:03/30/2022 08:40:00 AM Scheduled Provider:Iker OLIVAS MD Location:[facility] Appointment Type:Peds OV 10 [facility] [place] evaluation noteNo assessment information available [facility] Work Phone: [employer] note* Diagnosis Onset Date Resolution Status Acute UTI (urinary tract infection) acute [facility] Work Phone: Hospital course Narrative No data available for this section [facility] [place] Reason for Referral Reason *FU 02/02 Middle e ar effusion that is persisting Diagnosis 1 Acute effusion of le ft ear (H65.192) Referral Organization [facility] Family Medicin e Michael Referring Provider First Name Lynette Referring Provider Last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
[2024-06-25 15:29] LABS: HCG Quantitative <1 mIU/mL
== END 2024-06-25 14:22 | disposition home or self-care (01) ==
LOC: LAB 14:23
PROVIDERS: PCP Nurse Practitioner Family; Visit Provider Obstetrics & Gynecology
DX: N92.6 Irregular menstruation, unspecified (principal)
CPT/HCPCS: 36415; 84702

== ENCOUNTER 2024-07-25 12:56 | Outpatient (OUT) | payer OTHER, SELFPAY ==
--- OUTSIDE RECORDS SUMMARY | 2024-07-25 13:15 | XMS_ITS | CCD ---
Author Organization [facility] Care Team Providers Care Debeaker Name Role Phone Iker OLIVAS Primary Care Physician Maddie Dickson Unavailable Lynette Flores Unavailable MD Iker Olivas Primary Care Provider [phone] MD Kole Baron Attending Provider Lanny Nieves [...] PAY ., DR DEL ROSARIO Attending Unavailable ZIEBSHEREEN, DR DOMO Eddy Consulting Unavailable PAY ., DR DEL ROSARIO Consulting Unavailable STRAWSER, JONI Consulting Unavailable EDUARDO SANTANA Consulting Unavailable TRINITY Almendarez Attending Provider [phone] Isabella Almendarez Attending Unavailable Isabella Almendarez Admitting Unavailable NON STAFF Primary Care Unavailable HO [place] Attending Unavailable HO [place] Attending Unavailable Allergies Allergy Classification Reported Allergen(s) Allergy Type Date of Onset Reaction(s) Facility (9 sources) Latex; Translations: [LATEX] Drug allergy 2 Eruption of skin (disorder) [facility] (3 sources) contact metals 1 Drug allergy Eruption of skin (disorder) [facility] Comment on above: family states pt dev elops rash to alumininum in deoderant, fake jewelry (possibly kp?), etc (3 sources) Coconut extract; Translations: [coconut] Drug Allergy 2 Nausea [facility] (1 source) Iron; Translations: [IRON] Drug Allergy 2 [facility] (2 sources) contact metal agent Drug allergy (disorder) 4 Rash [facility] Repository (1 source) contact metals; Translations: [contact metals] Propensity to adverse reactions (disorder) [facility] Repository (1 source) contact metal agent Drug allergy (disorder) 4 [facility] Repository Medications Current Medications Medication Drug Class(es) Dates Sig (Normalized) Sig (Original) albuterol HFA 90 mcg/inh MDI (2 sources) Start: 03-02-2022 take 2 puff(s) by inhalation every four hours as needed for wheezing albuterol HFA 90 mcg/inh MDI 2 puff(s), Inhalation, q4hr as needed for wheezing, 18 gm, Refill(s) 0, [id number], 164, cm, 03/02/22 14:37:00 EDT, Height/Length [...] day(s), # 28 tab(s), Refills(s) 0, Pharmacy: [facility]/pharm[facility] #[id number], 161, cm, 03/16/22 14:08:00 EDT, Height/Length Dosing, 55.9, kg, 03/16/22 14:08:00 EDT, Weight Dosing Start Date: 03/16/22 Stop Date: 03/30/22 Status: Ordered cephalexin 500 mg oral capsule (2 sources) Cephalosporin Antibacterial Start: 04-18-2024 take 500 mg by mouth three times daily Cephalexin Active 500 MG PO Three times daily 09 06April 18, 2024 12:00am Start: 02-25-2022 take 1 capsule by mo [facility] every eight hours Cephalexin 500 MG 1 capsule Orally tid for 10 day(s) Feb, Active cetirizine hydrochloride 10 mg oral tablet (4 sources) Histamine-1 Receptor Antagonist Start: 01-11-2023 take 1 tablet by mouth every twenty-four hours Cetirizine HCl 10 MG 1 tablet Orally Once a day for 30 day(s) Dec, Active Start: 03-02-2022 take 1 tablet by [facility] once daily as needed cetirizine 10 mg Tab 10 mg = 1 tab(s), Oral, Daily, PRN for allergy symptoms, # 30 tab(s), Refills(s) 0, Pharmacy: [facility]/pharmacy #[id number], 164, cm, 03/02/22 14:37:00 EDT, Height/Length [...] qPM, # 30 tab(s), Refills(s) 0, Pharmacy: [facility]/pharm[facility] #[id number], 165.5, cm, 02/22/22 13:27:00 EDT, Height/Length [...] bacterial skin contaminants 2 Days PERFORMED BY: [facility] [address] [place] [address] PATHOLOGIST [employer] DIRECTOR MADAN TRIVEDI M.D. Normal [facility] Comment on above: Performed By: #### C UU #### [facility] [address] Physician Referralon 024 Physician Referral [id number] Normal [facility] ER URINE PROFILEon 3 Bilirubin Ql (U) Negative Normal NEGATIVE [facility] Comment on above: Performed By: #### E RUR, PREGU #### [facility] [address] [place] [address] Dr. Mikala Ramsay Clarity (U) CLEAR Normal CLEAR [facility] Comment on above: Performed By: #### E RUR, PREGU #### [facility] [address] [address] [address] Mikala Ramsay Color (U) LT. YELLOW Normal YELLOW [facility] Comment on above: Performed By: #### E RUR, PREGU #### [facility] [address] [address] [address] Mikala Ramsay ERUAHD A micrscopic examination will be performed if indicated. Normal [facility] Comment on above: Performed By: #### E RUR, PREGU #### [facility] [address] [address] [address] Mikala Ramsay Glucose Ql (U) Negative Normal NEGATIVE [facility] Comment on above: Performed By: #### E RUR, PREGU #### [facility] [address] [place] [address] Dr. Mikala Ramsay Hemoglobin Ql (U) Negative Normal NEGATIVE [facility] Comment on above: Performed By: #### E RUR, PREGU #### [facility] [address] [place] [address] Dr. Mikala Ramsay Ketones Ql (U) Negative Normal NEGATIVE [facility] Comment on above: Performed By: #### E RUR, PREGU #### [facility] [address] [place] [address] Dr. Mikala Ramsay LEUKOCYTES Negative Normal NEGATIVE [facility] Comment on above: Performed By: #### E RUR, PREGU #### [facility] [address] [place] [address] Dr. Mikala Ramsay Nitrite Ql (U) Negative Normal NEGATIVE [facility] Comment on above: Performed By: #### E RUR, PREGU #### [facility] [address] [place] [address] Dr. Mikala Ramsay pH (U) 8.0 [pH] Normal 5-[address] [facility] Comment on above: Performed By: #### E RUR, PREGU #### [facility] [address] [place] [address] Dr. Mikala Ramsay SPEC GRAVITY 1.015 Normal 1.005-<=1.[address] [facility] Comment on above: Performed By: #### E RUR, PREGU #### [facility] [address] [place] [address] Dr. Mikala Ramsay UA PROTEIN Negative Normal NEGATIVE/ TRACE [facility] Comment on above: Performed By: #### E RUR, PREGU #### [facility] [address] [place] [address] Dr. Mikala Ramsay UR MICRO IND NOT INDICATED Normal [facility] Comment on above: Performed By: #### E RUR, PREGU #### [facility] [address] [place] [address] Dr. Mikala Ramsay Urobilinogen Qn (U) 0.2 {Jose'U}/dL Normal 0.2 - 1.0 [facility] Comment on above: Performed By: #### E RUR, PREGU #### [facility] [address] [place] [address] Dr. Mikala Ramsay URon 11-25-2022 , QUAL Negative Normal NEGATIVE [facility] Comment on above: Performed By: #### E RUR, PREGU #### [facility] [address] [address] [address] Mikala Ramsay US PELVIS TRANSVAGon 023 [...] by: JONI MORALES Date: 2022-11-25 17:05 Normal [facility] XR KUB 1 VIEWon 11-25-2022 XR KUB [...] by: DOMO AN Date: 2022-11-25 14:56 Normal [facility] CBC AUTO DIFFon 09-06-2022 BASO # 0.0 103/ul Normal 0.0-0.1 [facility] Comment on above: Performed By: #### C BC #### [facility] [address] [address] [address] Mikala Ramsay Basophils/100 WBC (Bld) 0.3 % Normal 0.2-2.0 [facility] Comment on above: Performed By: #### C BC #### [facility] [address] [place] [address] Dr. Mikala Ramsay EO # 0.0 103/ul Normal 0.0-0.7 [facility] Comment on above: Performed By: #### C BC #### [facility] [address] [place] [address] Dr. Mikala Ramsay Eosinophils/100 WBC (Bld) 0.6 % Critically low 0.9-7.0 [facility] Comment on above: Performed By: #### C BC #### [facility] [address] [place] [address] Dr. Mikala Ramsay Erythrocyte distribution width (RBC) [Ratio] 14.0 % Normal 11.0-15.0 [facility] Comment on above: Performed By: #### C BC #### [facility] [address] [place] [address] Dr. Mikala Ramsay Hematocrit (Bld) [Volume fraction] 38.7 % Normal 36.0-48.0 [facility] Comment on above: Performed By: #### C BC #### [facility] [address] [place] [address] Dr. Mikala Ramsay Hemoglobin (Bld) [Mass/Vol] 12.5 g/dL Normal 12.0-16.0 [facility] Comment on above: Performed By: #### C BC #### [facility] [address] [place] [address] Dr. Mikala Ramsay IG # 0.02 10e3/ul Normal 0.00-0.03 [facility] Comment on above: Performed By: #### C BC #### [facility] [address] [place] [address] Dr. Mikala Ramsay IG % 0.3 % Normal 0.0-0.5 [facility] Comment on above: Performed By: #### C BC #### [facility] [address] [place] [address] Dr. Mikala Ramsay LYMPH # 1.2 103/ul Normal 1.2-3.[address] [facility] Comment on above: Performed By: #### C BC #### [facility] [address] [address] [address] Mikala Ramsay Lymphocytes/100 WBC (Bld) 17.4 % Critically low 20.5-60.0 [facility] Comment on above: Performed By: #### C BC #### [facility] [address] [place] [address] Dr. Mikala Ramsay MANUAL DIFF REQ NO Normal [facility] Comment on above: Performed By: #### C BC #### [facility] [address] [address] [address] Mikala Ramsay MCH (RBC) [Entitic mass] 26.0 pg Critically low 26.7-34.0 [facility] Comment on above: Performed By: #### C BC #### [facility] [address] [place] [address] Dr. Mikala Ramsay MCHC (RBC) [Mass/Vol] 32.3 g/dL Normal 29.9-35.2 [facility] Comment on above: Performed By: #### C BC #### [facility] [address] [place] [address] Dr. Mikala Ramsay MCV (RBC) [Entitic vol] 80.5 fL Critically low 81.0-99.0 [facility] Comment on above: Performed By: #### C BC #### [facility] [address] [place] [address] Dr. Mikala Ramsay MONO # 0.4 103/ul Normal 0.3-0.8 [facility] Comment on above: Performed By: #### C BC #### [facility] [address] [place] [address] Dr. Mikala Ramsay Monocytes/100 WBC (Bld) 5.9 % Normal 1.7-12.[address] [facility] Comment on above: Performed By: #### C BC #### [facility] [address] [place] [address] Dr. Mikala Ramsay NEUT # 5.0 103/ul Normal 1.4-6.[address] [facility] Comment on above: Performed By: #### C BC #### [facility] [address] [place] [address] Dr. Mikala Ramsay Neutrophils/100 WBC (Bld) 75.5 % Critically high 43.0-75.0 [facility] Comment on above: Performed By: #### C BC #### [facility] [address] [place] [address] Dr. Mikala Ramsay Platelet mean volume (Bld) [Entitic vol] 9.2 fL Critically low 9.5-13.5 [facility] Comment on above: Performed By: #### C BC #### [facility] [address] [place] [address] Dr. Mikala Ramsay PLT 286 103/ul Normal 150-450 [facility] Comment on above: Performed By: #### C BC #### [facility] [address] [place] [address] Dr. Mikala Ramsay RBC 4.81 106/ul Normal 4.20-5.40 [facility] Comment on above: Performed By: #### C BC #### [facility] [address] [place] [address] Dr. Mikala Ramsay WBC 6.7 103/ul Normal 4.0-11.0 [facility] Comment on above: Performed By: #### C BC #### [facility] [address] [place] [address] Dr. Mikala Ramsay PREG HCG QUALon 09-06-2022 , QUAL Negative Normal NEGATIVE [facility] Comment on above: Performed By: #### P REG #### [facility] [address] [place] [address] Dr. Mikala Ramsay PROF CHEM 8 (BAS METB)on Anion gap [Moles/Vol] 11.1 mmol/L Normal [facility] Comment on above: Performed By: #### B MP #### [facility] [address] [place] [address] Dr. Mikala Ramsay Calcium [Mass/Vol] 9.0 mg/dL Normal 8.5-10.1 [facility] Comment on above: Performed By: #### B MP #### [facility] [address] [address] [address] Mikala Ramsay Chloride [Moles/Vol] 106 mmol/L Normal 98-[address] [facility] Comment on above: Performed By: #### B MP #### [facility] [address] [address] [address] Mikala Ramsay CO2 [Moles/Vol] 25.6 mmol/L Normal 21.0-32.0 [facility] Comment on above: Performed By: #### B MP #### [facility] [address] [address] [address] Mikala Ramsay Creatinine [Mass/Vol] 0.72 mg/dL Normal 0.55-1.02 [facility] Comment on above: Performed By: #### B MP #### [facility] [address] [place] [address] Dr. Mikala Ramsay EGFR-AF UZBEK >60 Normal >=60 [facility] Comment on above: Performed By: #### B MP #### [facility] [address] [place] [address] Dr. Mikala Rmasay EGFR-NON AF UZBEK >60 Normal >=60 [facility] Comment on above: Performed By: #### B MP #### [facility] [address] [place] [address] Dr. Mikala Ramsay Glucose [Mass/Vol] 84 mg/dL Normal 74-106 [facility] Comment on above: Performed By: #### B MP #### [facility] [address] [address] [address] Mikala Ramsay Potassium [Moles/Vol] 3.7 mmol/L Normal 3.5-5.[address] [facility] Comment on above: Performed By: #### B MP #### [facility] [address] [place] [address] Dr. Mikala Ramsay Sodium [Moles/Vol] 139 mmol/L Normal 136-145 [facility] Comment on above: Performed By: #### B MP #### [facility] [address] [place] [address] Dr. Mikala Ramsay Urea nitrogen [Mass/Vol] 10.0 mg/dL Normal 6.4-19.3 [facility] Comment on above: Performed By: #### B MP #### [facility] [address] [place] [address] Dr. Mikala Ramsay Urea nitrogen/Creatinin e [Mass ratio] 13.9 mg/mg Normal [facility] Comment on above: Performed By: #### B MP #### [facility] [address] [place] [address] Dr. Mikala Ramsay CBC AUTO DIFFon 08-16-2022 BASO # 0.0 103/ul Normal 0.0-0.1 [facility] Comment on above: Performed By: #### C BC #### [facility] [address] [place] [address] Dr. Mikala Ramsay Basophils/100 WBC (Bld) 0.6 % Normal 0.2-2.0 [facility] Comment on above: Performed By: #### C BC #### [facility] [address] [place] [address] Dr. Mikala Ramsay EO # 0.1 103/ul Normal 0.0-0.7 [facility] Comment on above: Performed By: #### C BC #### [facility] [address] [place] [address] Dr. Mikala Ramsay Eosinophils/100 WBC (Bld) 1.3 % Normal 0.9-7.0 [facility] Comment on above: Performed By: #### C BC #### [facility] [address] [place] [address] Dr. Mikala Ramsay Erythrocyte distribution width (RBC) [Ratio] 14.5 % Normal 11.0-15.0 [facility] Comment on above: Performed By: #### C BC #### [facility] [address] [place] [address] Dr. Mikala Ramsay Hematocrit (Bld) [Volume fraction] 37.6 % Normal 36.0-48.0 [facility] Comment on above: Performed By: #### C BC #### [facility] [address] [place] [address] Dr. Mikala Ramsay Hemoglobin (Bld) [Mass/Vol] 12.2 g/dL Normal 12.0-16.0 [facility] Comment on above: Performed By: #### C BC #### [facility] [address] [place] [address] Dr. Mikala Ramsay IG # 0.02 10e3/ul Normal 0.00-0.03 [facility] Comment on above: Performed By: #### C BC #### [facility] [address] [place] [address] Dr. Mikala Ramsay IG % 0.3 % Normal 0.0-0.5 [facility] Comment on above: Performed By: #### C BC #### [facility] [address] [place] [address] Dr. Mikala Ramsay LYMPH # 2.1 103/ul Normal 1.2-3.[address] [facility] Comment on above: Performed By: #### C BC #### [facility] [address] [place] [address] Dr. Mikala Ramsay Lymphocytes/100 WBC (Bld) 33.4 % Normal 20.5-60.0 [facility] Comment on above: Performed By: #### C BC #### [facility] [address] [place] [address] Dr. Mikala Ramsay MANUAL DIFF REQ NO Normal [facility] Comment on above: Performed By: #### C BC #### [facility] [address] [place] [address] Dr. Mikala Ramsay MCH (RBC) [Entitic mass] 26.2 pg Critically low 26.7-34.0 [facility] Comment on above: Performed By: #### C BC #### [facility] [address] [place] [address] Dr. Mikala Ramsay MCHC (RBC) [Mass/Vol] 32.4 g/dL Normal 29.9-35.2 [facility] Comment on above: Performed By: #### C BC #### [facility] [address] [place] [address] Dr. Mikala Ramsay MCV (RBC) [Entitic vol] 80.7 fL Critically low 81.0-99.0 [facility] Comment on above: Performed By: #### C BC #### [facility] [address] [place] [address] Dr. Mikala Ramsay MONO # 0.4 103/ul Normal 0.3-0.8 [facility] Comment on above: Performed By: #### C BC #### [facility] [address] [place] [address] Dr. Mikala Ramsay Monocytes/100 WBC (Bld) 6.2 % Normal 1.7-12.0 [facility] Comment on above: Performed By: #### C BC #### [facility] [address] [place] [address] Dr. Mikala Ramsay NEUT # 3.7 103/ul Normal 1.4-6.5 [facility] Comment on above: Performed By: #### C BC #### [facility] [address] [place] [address] Dr. Mikala Ramsay Neutrophils/100 WBC (Bld) 58.2 % Normal 43.0-75.0 [facility] Comment on above: Performed By: #### C BC #### [facility] [address] [place] [address] Dr. Mikala Ramsay Platelet mean volume (Bld) [Entitic vol] 9.3 fL Critically low 9.5-13.[address] [facility] Comment on above: Performed By: #### C BC #### [facility] [address] [place] [address] Dr. Mikala Ramsay PLT 310 103/ul Normal 150-[address] [facility] Comment on above: Performed By: #### C BC #### [facility] [address] [place] [address] Dr. Mikala Ramsay RBC 4.66 106/ul Normal 4.20-5.[address] [facility] Comment on above: Performed By: #### C BC #### [facility] [address] [place] [address] Dr. Mikala Ramsay WBC 6.3 103/ul Normal 4.0-11.[address] [facility] Comment on above: Performed By: #### C BC #### [facility] [address] [address] [address] Mikala Ramsay XR elbow LT min 3V*on 2021 XR elbow LT min 3V* [facility] [employer] Other XR elbow LT min 3V* [facility] [employer] Other XR elbow LT min 3V* [address] [place] [address] [employer] Other XR elbow LT min 3V* [place] [address] [employer] Other XR elbow LT min 3V* XRay Report [employer] Other XR elbow LT min 3V* Signed [employer] Other XR elbow LT min 3V* Patient: Shilpi Ware MR#: [id number] [employer] Other XR elbow LT min 3V* : 2005 Acct:[id number] [employer] Other XR elbow LT min 3V* Age/Sex: 16 / F ADM Date: 01/10/22 [employer] Other XR elbow LT min 3V* Loc: XDUCLY Room: Type: [facility] CLI [employer] Other XR elbow LT min 3V* Attending Dr: Lynette GUILLERMO [employer] Other XR elbow LT min 3V* Ordering Provider: LYNETTE FLORES [employer] Other XR elbow LT min 3V* Date of Service: 01/10/22 [employer] Other XR elbow LT min 3V* XR/XR elbow LT min 3V*: Injury of left elbow, initial encounter [employer] Other XR elbow LT min 3V* Copies to: LYNETTE FLORES [employer] Other XR elbow LT min 3V* XR elbow LT min 3V* 01/10/2022 10:51 AM [employer] Other XR elbow LT min 3V* SIGNS AND SYMPTOMS: Injury of left elbow, left elbow pain [employer] Other XR elbow LT min 3V* PROTOCOL: Frontal, lateral, and oblique radiographs of the left elbow [employer] Other XR elbow LT min 3V* COMPARISON: None [employer] Other XR elbow LT min 3V* FINDINGS: [employer] Other XR elbow LT min 3V* There is no fracture or dislocation. No joint effusion. No soft tissue swelling. The joint spaces [employer] Other XR elbow LT min 3V* are preserved. [employer] Other XR elbow LT min 3V* XR/XR elbow LT min 3V* [employer] Other XR elbow LT min 3V* IMPRESSION: [employer] Other XR elbow LT min 3V* No acute bony injury. [employer] Other XR elbow LT min 3V* Impression dictated by: Johnson Grijalva M.D.01/10/2022 11:26 AM [employer] Other XR elbow LT min 3V* Dictation Location: [facility] [employer] Other XR elbow LT min 3V* Transcribed By: YESSY 01/10/22 [facility] [employer] Other XR elbow LT min 3V* Dictated By: Johnson Grijalva II, MD 01/10/22 [facility] [employer] Other XR elbow LT min 3V* Signed By: [employer] Other XR elbow LT min 3V* 01/10/22 1126 [employer] Other Quick Strepon 11-03-2021 S. pyogenes Org specific cx Ql (Throat) Negative [employer] Other [employer] Other Vital Signs Date Time Vital Sign Value Performing Clinician Facility 04-18-2024 14:41-0400 Body height 162.56 cm SCIENTIFIC PROCESS OPERATOR Isabellayong Almendarez Work Phone: [facility] 04-18-2024 14:41-0400 Body mass index (BMI) [Ratio] 20.8 kg/m2 SCIENTIFIC PROCESS OPERATOR Isabellayong Almendarez Work Phone: [facility] 04-18-2024 14:41-0400 Body temperature 98.8 [degF] SCIENTIFIC PROCESS OPERATOR Isabellayong Almendarez Work Phone: [facility] 04-18-2024 14:41-0400 Body weight 54.99 kg SCIENTIFIC PROCESS OPERATOR Isabellayong Almendarez Work Phone: [facility] 04-18-2024 14:41-0400 Heart rate 67 /min SCIENTIFIC PROCESS OPERATOR Isabellayong Almendarez Work Phone: [facility] 04-18-2024 14:41-0400 Respiratory rate 18 /min SCIENTIFIC PROCESS OPERATOR Isabellayong Almendarez Work Phone: [facility] 04-18-2024 14:41-0400 SaO2% (BldA) [Mass fraction] 98 % SCIENTIFIC PROCESS OPERATOR Isabellayong Almendarez Work Phone: [facility] 01-11-2023 17:10-0500 Body height 163.83 cm Lynette Flores Other [employer] Other 01-11-2023 17:10-0500 Body mass index (BMI) [Ratio] 19.94 kg/m2 Lynette Flores Other [employer] Other 01-11-2023 17:10-0500 Body temperature 98.2 [degF] Lynette Flores Other [employer] Other 01-11-2023 17:10-0500 Body weight 53.52 kg Lynette Flores Other [employer] Other 01-11-2023 17:10-0500 Respiratory rate 18 /min Lynette Flores Other [employer] Other 01-11-2023 17:10-0500 SaO2% (BldA) [Mass fraction] 99 % Lynette Flores Other [employer] Other 12-13-2022 16:30-0500 Body height 162.56 cm Lanny Nieves Other [employer] Other 12-13-2022 16:30-0500 Body mass index (BMI) [Ratio] 20.25 kg/m2 Lanny Nieves Other [employer] Other 12-13-2022 16:30-0500 Body temperature 97.2 [degF] Lanny Nieves Other [employer] Other 12-13-2022 16:30-0500 Body weight 53.52 kg Lanny Nieves Other [employer] Other 12-13-2022 16:30-0500 Respiratory rate 18 /min Lanny Nieves Other [employer] Other 12-13-2022 16:30-0500 SaO2% (BldA) [Mass fraction] 99 % Lanny Nieves Other [employer] Other 07-04-2022 17:25-0400 Body height 163.83 cm Lynette Flores Other [employer] Other 07-04-2022 17:25-0400 Body mass index (BMI) [Ratio] 19.77 kg/m2 Lynette Flores Other [employer] Other 07-04-2022 17:25-0400 Body temperature 97.8 [degF] Lynette Flores Other [employer] Other 07-04-2022 17:25-0400 Body weight 53.07 kg Lynette Flores Other [employer] Other 07-04-2022 17:25-0400 Diastolic blood pressure 65 mm[Hg] Lynette Flores Other [employer] Other 07-04-2022 17:25-0400 Respiratory rate 18 /min Lynette Flores Other [employer] Other 07-04-2022 17:25-0400 SaO2% (BldA) [Mass fraction] 100 % Lynette Flores Other [employer] Other 07-04-2022 17:25-0400 Systolic blood pressure 110 mm[Hg] Lynette Baetsault Other [employer] Other 03-16-2022 14:01-0400 Blood Pressure Location Iker BRENDON [facility] 03-16-2022 14:01-0400 Body temperature 97.7 [degF] Iker WNEK [facility] 03-16-2022 14:01-0400 Diastolic blood pressure 68 mm[Hg] Iker WNEK [facility] 03-16-2022 14:01-0400 Heart rate 76 /min Iker WNEK [facility] 03-16-2022 14:01-0400 Respiratory rate 18 /min Iker WNEK [facility] 03-16-2022 14:01-0400 SaO2% (BldA) [Mass fraction] 98 % Iker WNEK [facility] 03-16-2022 14:01-0400 Systolic blood pressure 120 mm[Hg] Iker WNEK [facility] 03-02-2022 14:34-0400 Blood Pressure Location Iker WNEK [facility] 03-02-2022 14:34-0400 Body temperature 98.24 [degF] Iker WNEK [facility] 03-02-2022 14:34-0400 Diastolic blood pressure 60 mm[Hg] Iker WNEK [facility] 03-02-2022 14:34-0400 Heart rate 76 /min Iker WNEK [facility] 03-02-2022 14:34-0400 Respiratory rate 18 /min Iker OLIVAS [facility] 03-02-2022 14:34-0400 SaO2% (BldA) [Mass fraction] 98 % Iker OLIVAS [facility] 03-02-2022 14:34-0400 Systolic blood pressure 118 mm[Hg] Iker OLIVAS [facility] 02-25-2022 10:15-0400 Body height 163.83 cm Maddie Dickson Other [employer] Other 02-25-2022 10:15-0400 Body mass index (BMI) [Ratio] 19.26 kg/m2 Maddie Dickson Other [employer] Other 02-25-2022 10:15-0400 Body temperature 97.1 [degF] Maddie Dickson Other [employer] Other 02-25-2022 10:15-0400 Body weight 51.71 kg Maddie Dickson Other [employer] Other 02-25-2022 10:15-0400 SaO2% (BldA) [Mass fraction] 99 % Maddie Dickson Other [employer] Other 02-22-2022 13:23-0400 Blood Pressure [facility] Marli Rosenberg [facility] 02-22-2022 13:23-0400 Body temperature 97.34 [degF] Marli Chet [facility] 02-22-2022 13:23-0400 Diastolic blood pressure 70 mm[Hg] Marli Orwell [facility] 02-22-2022 13:23-0400 Heart rate 80 /min Marli Orwell [facility] 02-22-2022 13:23-0400 Respiratory rate 16 /min Marli Orwell [facility] 02-22-2022 13:23-0400 SaO2% (BldA) [Mass fraction] 98 % Marli Chet [facility] 02-22-2022 13:23-0400 Systolic blood pressure 118 mm[Hg] Marli Orwell [facility] 01-10-2022 11:30-0500 Body height 162.56 cm Lynette Flores Other [employer] Other 01-10-2022 11:30-0500 Body mass index (BMI) [Ratio] 21.45 kg/m2 Lynette Flores Other [employer] Other 01-10-2022 11:30-0500 Body temperature 96.9 [degF] Lynette Flores Other [employer] Other 01-10-2022 11:30-0500 Body weight 56.7 kg Lynette Flores Other [employer] Other 01-10-2022 11:30-0500 Diastolic blood pressure 69 mm[Hg] Lnyette Flores Other [employer] Other 01-10-2022 11:30-0500 Respiratory rate 18 /min Lynette Flores Other [employer] Other 01-10-2022 11:30-0500 SaO2% (BldA) [Mass fraction] 99 % Lynette Flores Other [employer] Other 01-10-2022 11:30-0500 Systolic blood pressure 121 mm[Hg] Lynette Flores Other [employer] Other 11-03-2021 17:45-0500 Body height 162.56 cm Maddie Yessi Other [employer] Other 11-03-2021 17:45-0500 Body mass index (BMI) [Ratio] 21.8 kg/m2 Maddie Yessi Other [employer] Other 11-03-2021 17:45-0500 Body temperature 97.8 [degF] Maddie Yessi Other [employer] Other 11-03-2021 17:45-0500 Body weight 57.61 kg Maddie Rosasmond Other [employer] Other 11-03-2021 17:45-0500 Respiratory rate 18 /min Maddie Yessi Other [employer] Other 11-03-2021 17:45-9950 SaO2% (BldA) [Mass fraction] 99 % Maddie Dickson Other [employer] Other Encounters Encounter Date Encounter Type Care Provider Facility Start: 07-23-2024 End: 07-23-2024 ambulatory HO JAYLEN Not Available Start: 04-18-2024 End: 04-18-2024 ambulatory Isabella Almendarez [facility] Work Phone: Start: 04-18-2024 End: 04-18-2024 Departed Referred TRINITY Almendarez Work Phone: [facility] [place] Work Phone: Start: 04-18-2024 End: 04-18-2024 Patient encounter procedure SCIENTIFIC PROCESS 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 Almendarez Work Phone: [facility] Work Phone: Start: 12-29-2023 ambulatory Facility:Daxa Dillon Start: 11-27-2023 End: 11-27-2023 ambulatory HO JAYLEN Not Available Start: 01-11-2023 End: 01-11-2023 ambulatory Lynette Flores Other [employer] Other Start: 01-11-2023 Office outpatient visit 25 minutes Lynette Flores [facility] Start: 12-13-2022 End: 12-13-2022 ambulatory Lanny Nieves Other [employer] Other Start: 12-13-2022 Office outpatient visit 15 minutes Lanny Nieves [facility] Start: 11-25-2022 End: 11-25-[address] NONE LISTED REQUEST Facility: Start: 11-03-2022 End: 11-03-2022 ambulatory NONE LISTED REQUEST Facility:[facility] Start: 09-06-2022 End: 10-18-[address] GREG BO . Facility:[facility] Start: 08-18-2022 End: 08-18-2022 ambulatory MD Iker Olivas Work Phone: [facility] Work Phone: Start: 08-18-2022 End: 08-18-2022 Departed Referred MD Iker Olivas Work Phone: [facility] [place] Start: 08-16-2022 End: 08-17-[address] DOCTOR BERRY Facility:[facility] Start: 07-04-2022 End: 07-04-2022 ambulatory Lynette Flores Other [employer] Other Start: 07-04-2022 Office outpatient visit 15 minutes Lynette Flores [facility] Start: 05-05-2022 End: 05-05-2022 ambulatory IKER OLIVAS [facility] Start: 03-16-2022 End: 03-16-2022 Patient encounter procedure Iker OLIVAS [facility] Start: 03-02-2022 End: 03-02-2022 Patient encounter procedure Iker OLIVAS [facility] Start: 02-25-2022 End: 02-25-2022 ambulatory Maddie Dickson Other [employer] Other Start: 02-25-2022 Office outpatient visit 25 minutes Maddie Yessi [facility] Start: 02-22-2022 End: 02-22-2022 Patient encounter procedure Marli Rosenberg [facility] Start: 01-10-2022 End: 01-10-2022 ambulatory Lynette Flores Other [employer] Other Start: 01-10-2022 Office outpatient visit 15 minutes Lynette Flores [facility] Start: 11-03-2021 End: 11-03-2021 ambulatory Maddie Yessi Other [employer] Other Start: 11-03-2021 Office outpatient visit 15 minutes Maddie Yessi [facility] Procedures Date Procedure Procedure Detail Performing Clinician Start: 11-20-2007 Dentition (body structure) Marli Chet Comment on above: multiple surgeries w agatha davis per Shilpi. Plan of Treatment Date Care Activity Detail Author Start: 04-19-2024 Bacteria identified in Urine by Culture [facility] Start: 04-18-2024 Bacteria identified in Urine by Culture [facility] Immunizations Immunization Date Immunization Notes Care Provider Fa cility 12-10-2020 hepatitis A vaccine, pediatric/adolescent dosage, 2 dose schedule Marli Chet [facility] 12-10-2020 meningococcal polysaccharide (groups A, C, Y and W-135) diphtheria toxoid conjugate vaccine (MCV4P) Marli Chet [facility] 09-01-2016 meningococcal ACWY vaccine, unspecified formulation Marli Chet [facility] 09-01-2016 tetanus toxoid, redu matthieu diphtheria toxoid, and acellular pertussis vaccine, adsorbed Marli Chet [facility] 12-10-2013 influenza virus vacc ine, unspecified formulation Marli Chet [facility] 12-11-2008 influenza virus vacc ine, unspecified formulation Marli Rosenberg [facility] 05-01-2008 diphtheria, tetanus toxoids and acellular pertussis vaccine Marli Rosenberg [facility] 05-01-2008 hepatitis B vaccine, adult dosage Marli Rosenberg [facility] 05-01-2008 measles, mumps and rubella virus vaccine Marli Rosenberg [facility] 05-01-2008 poliovirus vaccine, unspecified formulation Marli Rosenberg [facility] 05-01-2008 varicella virus vaccine Brittney Rosenberg [facility] 03-16-2005 diphtheria, tetanus toxoids and acellular pertussis vaccine Marli Rosenberg [facility] 03-16-2005 haemophilus influenz ae type b vaccine, HbOC conjugate Marli Rosenberg [facility] 03-16-2005 measles, mumps and rubella virus vaccine Marli Rosenberg [facility] 03-16-2005 pneumococcal conjuga te vaccine, 13 valent Marli Rosenberg [facility] 03-16-2005 varicella virus vaccine Brittney abshankar Rosenberg [facility] 2004 influenza virus vacc ine, unspecified formulation Marliannia Rosenberg [facility] 2004 diphtheria, tetanus toxoids and acellular pertussis vaccine Marli Rosenberg [facility] 2004 haemophilus influenz ae type b vaccine, HbOC conjugate Marli Rosenberg [facility] 2004 hepatitis B vaccine, adult dosage Marli Rosenberg [facility] 2004 pneumococcal conjuga te vaccine, 13 valent Marli Rosenberg [facility] 2004 poliovirus vaccine, unspecified formulation Marli Rosenberg [facility] 2004 diphtheria, tetanus toxoids and acellular pertussis vaccine Marli Rosenberg [facility] 2004 haemophilus influenz ae type b vaccine, HbOC conjugate Marli Rosenberg [facility] 2004 hepatitis B vaccine, adult dosage Marli Rosenberg [facility] 2004 pneumococcal conjuga te vaccine, 13 valent Marli Chet [facility] 2004 poliovirus vaccine, unspecified formulation Marli Rosenberg [facility] 2004 diphtheria, tetanus toxoids and acellular pertussis vaccine Marli Rosenberg [facility] 2004 haemophilus influenz ae type b vaccine, HbOC conjugate Marli Rosenberg [facility] 2004 hepatitis B vaccine, adult dosage Marli Rosenberg [facility] 2004 pneumococcal conjuga te vaccine, 13 valent Marli Rosenberg [facility] 2004 poliovirus vaccine, unspecified formulation Marli Rosenberg [facility] Payers Date Payer Category Payer Self-pay [id number] 2024 Medicaid [id number] 2023 Private Health Insurance [id number] 2004 Unknown [id number] 2004 Unknown [id number] 2004 Unknown [id number] 2004 Unknown [id number] 2004 Unknown [id number] 2004 Unknown [id number] 1984 Unknown [id number] 1959 Unknown [id number] 2.16. [id number] 1959 Unknown [id number] 2.16.8 [id number] 1959 Unknown [id number] [id number]. [id number] Unknown Josephine / [id number] Unknown [id number] 2.16.8 [id number] Unknown [id number] Social History Date Type Detail Facility Start: 01-07-2022 End: 01-11-2023 Tobacco smoking status Never smoked tobacco (finding) [employer] Other Tobacco smoking status Never [facility] Sex Assigned At Female [employer] Other Start: 2004 Sex Assigned At Female [facility] Clinical Notes 08-21-2013 to 01-11-2023 Note Date & Type Note Facility 01-11-2023 Evaluation note Encounter Date Diagnosis Assessment Notes Dec, Acute effusion of left ear (ICD-10 - H65.192) try this medication and referral sent to ENT since conservative treatment has been used by urgent care and PCP without improvement of symptoms. [employer] Other 01-24-2023 Evaluation note* Encounter Date Diagnosis [...] understanding and is agreeable to treatment plan [employer] Other 08-15-2022 Evaluation note* Encounter Date Diagnosis Assessment Notes Treatment Notes Treatment Clinical Notes Jun, Tooth infection (ICD-10 - K04.7) Take medications as directed.Highly encourage patient to contact dentist CARLY for further treatment of infection. Ok to take OTC medications like ibuprofen with prescriptions [employer] Other 06-16-2022 GeraldShilpi Olmstead Freeman is here for consultation at the request of Iker Olivas MD for: Constipation ---History from parent and patient History of Present Illness My advice was requested by Iker Olivas MD. She is accompanied by her mother and sibling(s). No senior windows administrator was used. ABD pain - Patient has [...] 40mg per day Mirala (more content not included)...[facility]04-13-2022 Hospital Discharge instructions Follow Up Care 03/02/2022 15:03:01 With:Iker OLIVAS MD, PED Address: [address] [place] [address] [address] [address]- When:03/30/2022 Comments:recheck dyspnea/chest pain [facility] 04-13-2022 Hospital Discharge instructions Follow Up Care 03/02/2022 09:25:52 With:Iker OLIVAS MD, PED Address: [address] [place] [address] [place] [address]- When:03/16/2022 Comments:recheck SOB [facility] 04-08-2022 Evaluation note* Encounter Date Diagnosis Assessment [...] 3 days. Feb, Bronchitis (ICD-10 - J40) [employer] Other 04-05-2022 Hospital Discharge instructions Follow Up Care 02/22/2022 08:51:47 With:Chet DENTON, Marli ENRIQUE Address: When: Unknown Comments:f/up in 2 months for recheck anxiety [facility] 02-21-2022 Evaluation note* Encounter Date Diagnosis Assessment [...] we will help you get into specialist. [employer] Other 12-15-2021 Evaluation note* Encounter Date Diagnosis Assessment Notes Treatment Notes Treatment Clinical Notes Oct, Sore throat (ICD-10 - J02.9) Oct, Viral pharyngitis (ICD-10 - J02.9) Drink plenty of fluids, get plenty of rest. Tylenol or Motrin for aches pains or fevers. Follow-up with family physician if no improvement in 2 to 3 days for [employer] Other 10-02-2013 History general Narrative - Reported* Type Description Date Medical History eczema Medical History reactive airway Medical History Radial fracture (resolved 2012) Medical History Strep throat (resolved ) Surgical History dental reconstruction age 1 [employer] Other 10-02-2013 History general Narrative - Reported* Type Description Date Medical History eczema Medical History reactive airway Medical History Radial fracture (resolved 2012) Medical History Strep throat (resolved ) Surgical History dental reconstruction age 1 Surgical History Cyst Removal Left eye 08/2022 [facility] [employer] Other Evaluation + Plan note Referrals to Other Providers Referred by: Marli Rosenberg MD [facility] Evaluation + Plan note Future Appointments Appointment Date:03/16/2022 02:00:00 PM Scheduled Provider:Iker OLIVAS MD Location:[facility] Appointment Type:Peds OV 10 Referrals to Other Providers Referred by: Iker OLIVAS MD [facility] Evaluation + Plan note Future Appointments Appointment Date:03/30/2022 08:40:00 AM Scheduled Provider:Iker OLIVAS MD Location:[facility] Appointment Type:Peds OV 10 [facility] Evaluation noteNo assessment information available [facility] Work Phone: Evalucsoyz note* Diagnosis Onset Date Resolution Status Acute UTI (urinary tract infection) acute [facility] Work Phone: Hospital course Narrative No data available for this section [facility] Reason for Referral Reason *FU 02/02 Middle e ar effusion that is persisting Diagnosis 1 Acute effusion of le ft ear (H65.192) Referral Organization [facility] Family Ankita Rodriguez Referring Provider First Name Lynette Referring Provider Last Name Conrado Referring Provider Specialty Nurse Pract itioner Referred Organization [facility] Referred Provider Fiordaliza Akers Referred Address ,[place], [place],[address] Referred Provider Specialty Ear, Nose an d Throat Referral Priority Routine General Notes Fore, Sailaja M 023 07:30:08 AM >Received today and waiting [...] Relationship Condition Age at Onset Recorded Date/T jayocb father Migraine Unknown Not Specified Gastritis Unknown [...] section and content) DATE CREATED AUTHOR 03/02/2023 [facility] DATE CREATED AUTHOR 'S PRIYA ATION 03/25/2023 [facility] [place] [facility] DATE CREATED AUTHOR AUTHOR'S ORGANIZ ATION 12/30/2023 [facility] DATE CREATED AUTHOR AUTHOR'S ORGANIZ ATION 05/21/2024 [facility] DATE CREATED AUTHOR AUTHOR'S ORGANIZ ATION 07/23/2024 [facility] FOR RECORDS PERTAINING TO PATIENTS WHO ARE [...] BE BASED ON THE PRIMARY CLINICAL RECORDS. [employer] provides no warranty or guarantee of the accuracy or completeness of information in this document.
[2024-07-25 13:30] LABS: Basophils Percent Auto 0.3 % (0.2-2.0); Eosinophils Absolute Auto 0.1 10^3/uL (0.0-0.7); Eosinophils Percent Auto 0.8 % (0.9-7.0); Hematocrit 37.4 % (36.0-48.0); Hemoglobin 12.1 g/dL (12.0-16.0); Immature Granulocytes Abs Auto 0.02 10^3/uL (0.00-0.03); Immature Granulocytes Pct Auto 0.3 % (0.0-0.5); Lymphocytes Absolute Auto 1.5 10^3/uL (1.2-3.8); Lymphocytes Percent Auto 24.5 % (20.5-60.0); Mean Corpuscular HGB Conc 32.4 g/dL (29.9-35.2); Mean Corpuscular Hemoglobin 26.5 pg (26.7-34.0); Mean Corpuscular Volume 81.8 fL (81.0-99.0); Mean Platelet Volume 9.5 fL (9.5-13.5); Monocytes Absolute Auto 0.3 10^3/uL (0.3-0.8); Monocytes Percent Auto 4.5 % (1.7-12.0); Neutrophils Absolute Auto 4.1 10^3/uL (1.4-6.5); Neutrophils Percent Auto 69.6 % (43.0-75.0); Platelet Count 318 10^3/uL (150-450); Red Blood Count 4.57 10^6/uL (4.20-5.40)
[2024-07-25 13:41] LABS: Estimated Average Glucose 94 mg/dL; Glycohemoglobin A1C 4.9 % (4.5-6.2)
[2024-07-25 14:12] LABS: Free T4 0.96 ng/dL (0.76-1.46)
[2024-07-25 14:15] LABS: HCG Quantitative <1 mIU/mL; Thyroid Stimulating Hormone 1.597 uIU/mL (0.358-3.740)
[2024-07-26 12:09] LABS: FSH 5.2 mIU/mL (.); Luteinizing Hormone(LH) 14.8 mIU/mL (.); Progesterone 0.2 ng/mL (.)
[2024-07-28 01:06] LABS: Anti-Mullerian Hormone (AMH) 2.08 ng/mL (.)
[2024-07-30 00:07] LABS: DHEA, Serum 526 ng/dL (31-701)
== END 2024-07-25 12:57 | disposition home or self-care (01) ==
LOC: LAB 12:58
PROVIDERS: PCP Nurse Practitioner Family; Visit Provider Obstetrics & Gynecology
DX: E28.2 Polycystic ovarian syndrome (principal); Z31.9 Encounter for procreative management, unspecified
CPT/HCPCS: 36415; 82397; 82626; 82627; 82670; 83001; 83002; 83036; 84144; 84439; 84443; 84702; 85025

== ENCOUNTER 2024-09-12 10:05 | Outpatient (OUT) | payer OTHER, SELFPAY ==
--- OUTSIDE RECORDS SUMMARY | 2024-09-12 10:13 | XMS_ITS | CCD ---
Author Organization [facility] Care Team Providers Care Automatic Stacker Name Role Phone Iker OLIVAS Primary Care Physician [phone] Maddie Dickson Unavailable Lynette Flores Unavailable MD [...] SANTANA Consulting Unavailable TRINITY Almendarez Attending Provider [phone] Isabella Almendarez Attending Unavailable Isabella Almendarez Admitting Unavailable NON STAFF Primary Care Unavailable [place] Attending Unavailable [place] Attending Unavailable Allergies Allergy Classification Reported Allergen(s) Allergy Type Date of Onset Reaction(s) Facility (9 sources) Latex; Translations: [LATEX] Drug allergy 2 Eruption of skin (disorder) [facility] (3 sources) contact metals 1 Drug allergy Eruption of skin (disorder) [facility] Comment on above: family states pt dev elops rash to alumininum in deoderant, fake jewelry (possibly kp?), etc (3 sources) Coconut extract; Translations: [coconut] Drug Allergy 2 Nausea [facility] (1 source) Iron; Translations: [IRON] Drug Allergy 2 [facility] (2 sources) contact metal agent Drug allergy (disorder) 4 Rash [facility] (1 source) contact metals; Translations: [contact metals] Propensity to adverse reactions (disorder) [facility] (1 source) contact metal agent Drug allergy (disorder) 4 [facility] Medications Current Medications Medication Drug [...] day(s), # 28 tab(s), Refills(s) 0, Pharmacy: [facility]/pharmacy #[id number], 161, cm, 03/16/22 14:08:00 EDT, Height/Length Dosing, 55.9, kg, 03/16/22 14:08:00 EDT, Weight Dosing Start Date: 03/16/22 Stop Date: 03/30/22 Status: Ordered cephalexin 500 mg oral capsule (2 sources) Cephalosporin Antibacterial Start: 04-18-2024 take 500 mg by mouth three times daily Cephalexin Active 500 MG PO Three times daily 09 06April 18, 2024 12:00am Start: 02-25-2022 take 1 capsule by mo [facility] every eight hours Cephalexin 500 MG 1 capsule Orally tid for 10 day(s) Feb, Active cetirizine hydrochloride 10 mg oral tablet (4 sources) Histamine-1 Receptor Antagonist Start: 01-11-2023 take 1 tablet by mouth every twenty-four hours Cetirizine HCl 10 MG 1 tablet Orally Once a day for 30 day(s) Dec, Active Start: 03-02-2022 take 1 tablet by [facility] once daily as needed cetirizine 10 mg Tab 10 mg = 1 tab(s), Oral, Daily, PRN for allergy symptoms, # 30 tab(s), Refills(s) 0, Pharmacy: [facility]/pharmacy #[id number], 164, cm, 03/02/22 14:37:00 EDT, Height/Length [...] qPM, # 30 tab(s), Refills(s) 0, Pharmacy: [facility]/pharmacy #[id number], 165.5, cm, 02/22/22 13:27:00 EDT, Height/Length [...] bacterial skin contaminants 2 Days PERFORMED BY: [facility] [address] [place] [address] PATHOLOGIST BUDGET CONSULTANT MADAN TRIVEDI M.D. Normal [facility] Comment on above: Performed By: #### C UU #### [facility] [address] Physician Referralon 024 Physician Referral [phone] [id number] Normal [facility] ER URINE PROFILEon 3 Bilirubin Ql (U) Negative Normal NEGATIVE [facility] Comment on above: Performed By: #### E RUR, PREGU #### [facility] [address] [place] [address] Dr. Mikala Ramsay Clarity (U) CLEAR Normal CLEAR [facility] Comment on above: Performed By: #### E RUR, PREGU #### [facility] [address] [address] [address] Mikala Ramsay Color (U) LT. YELLOW Normal YELLOW [facility] Comment on above: Performed By: #### E RUR, PREGU #### [facility] [address] [address] [address] Mikala Ramsay ERUAHD A micrscopic examination will be performed if indicated. Normal [facility] Comment on above: Performed By: #### E RUR, PREGU #### [facility] [address] [address] [address] Mikala Ramsay Glucose Ql (U) Negative Normal NEGATIVE [facility] Comment on above: Performed By: #### E RUR, PREGU #### [facility] [address] [place] [address] Dr. Mikala Ramsay Hemoglobin Ql (U) Negative Normal NEGATIVE [facility] Comment on above: Performed By: #### E RUR, PREGU #### [facility] [address] [place] [address] Dr. Mikala Ramsay Ketones Ql (U) Negative Normal NEGATIVE [facility] Comment on above: Performed By: #### E RUR, PREGU #### [facility] [address] [place] [address] Dr. Mikala Ramsay LEUKOCYTES Negative Normal NEGATIVE [facility] Comment on above: Performed By: #### E RUR, PREGU #### [facility] [address] [place] [address] Dr. Mikala Ramsay Nitrite Ql (U) Negative Normal NEGATIVE [facility] Comment on above: Performed By: #### E RUR, PREGU #### [facility] [address] [place] [address] Dr. Mikala Ramsay pH (U) 8.0 [pH] Normal 5-9 [facility] Comment on above: Performed By: #### E RUR, PREGU #### [facility] [address] [place] [address] Dr. Mikala Ramsay SPEC GRAVITY 1.015 Normal 1.005-<=1.025 [facility] Comment on above: Performed By: #### E RUR, PREGU #### [facility] [address] [place] [address] Dr. Mikala Ramsay UA PROTEIN Negative Normal NEGATIVE/ TRACE [facility] Comment on above: Performed By: #### E RUR, PREGU #### [facility] [address] [place] [address] Dr. Mikala Ramsay UR MICRO IND NOT INDICATED Normal [facility] Comment on above: Performed By: #### E RUR, PREGU #### [facility] [address] [place] [address] Dr. Mikala Ramsay Urobilinogen Qn (U) 0.2 {Jose'U}/dL Normal 0.2 - 1.0 [facility] Comment on above: Performed By: #### E RUR, PREGU #### [facility] [address] [place] [address] Dr. Mikala Ramsay URon 11-25-2022 , QUAL Negative Normal NEGATIVE [facility] Comment on above: Performed By: #### E RUR, PREGU #### [facility] [address] [address] [address] Mikala Ramsay US PELVIS TRANSVAGon 023 [...] by: JONI MORALES Date: 2022-11-25 17:05 Normal [facility] XR KUB 1 VIEWon 11-25-2022 XR [...] by: DOMO AN Date: 2022-11-25 14:56 Normal [facility] CBC AUTO DIFFon 09-06-2022 BASO # 0.0 103/ul Normal 0.0-0.1 [facility] Comment on above: Performed By: #### C BC #### [facility] [address] [address] [address] Mikala Ramsay Basophils/100 WBC (Bld) 0.3 % Normal 0.2-2.0 [facility] Comment on above: Performed By: #### C BC #### [facility] [address] [place] [address] Dr. Mikala Ramsay EO # 0.0 103/ul Normal 0.0-0.7 [facility] Comment on above: Performed By: #### C BC #### [facility] [address] [place] [address] Dr. Mikala Ramsay Eosinophils/100 WBC (Bld) 0.6 % Critically low 0.9-7.0 [facility] Comment on above: Performed By: #### C BC #### [facility] [address] [place] [address] Dr. Mikala Ramsay Erythrocyte distribution width (RBC) [Ratio] 14.0 % Normal 11.0-15.0 [facility] Comment on above: Performed By: #### C BC #### [facility] [address] [place] [address] Dr. Mikala Ramsay Hematocrit (Bld) [Volume fraction] 38.7 % Normal 36.0-48.0 [facility] Comment on above: Performed By: #### C BC #### [facility] [address] [place] [address] Dr. Mikala Ramsay Hemoglobin (Bld) [Mass/Vol] 12.5 g/dL Normal 12.0-16.0 [facility] Comment on above: Performed By: #### C BC #### [facility] [address] [place] [address] Dr. Mikala Ramsay IG # 0.02 10e3/ul Normal 0.00-0.03 [facility] Comment on above: Performed By: #### C BC #### [facility] [address] [place] [address] Dr. iMkala Ramsay IG % 0.3 % Normal 0.0-0.5 [facility] Comment on above: Performed By: #### C BC #### [facility] [address] [place] [address] Dr. Mikala Ramsay LYMPH # 1.2 103/ul Normal 1.2-3.8 [facility] Comment on above: Performed By: #### C BC #### [facility] [address] [address] [address] Mikala Ramsay Lymphocytes/100 WBC (Bld) 17.4 % Critically low 20.5-60.0 [facility] Comment on above: Performed By: #### C BC #### [facility] [address] [place] [address] Dr. Mikala Ramsay MANUAL DIFF REQ NO Normal [facility] Comment on above: Performed By: #### C BC #### [facility] [address] [address] [address] Mikala Ramsay MCH (RBC) [Entitic mass] 26.0 pg Critically low 26.7-34.0 [facility] Comment on above: Performed By: #### C BC #### [facility] [address] [place] [address] Dr. Mikala Ramsay MCHC (RBC) [Mass/Vol] 32.3 g/dL Normal 29.9-35.2 [facility] Comment on above: Performed By: #### C BC #### [facility] [address] [place] [address] Dr. Mikala Ramsay MCV (RBC) [Entitic vol] 80.5 fL Critically low 81.0-99.0 [facility] Comment on above: Performed By: #### C BC #### [facility] [address] [place] [address] Dr. Mikala Ramsay MONO # 0.4 103/ul Normal 0.3-0.8 [facility] Comment on above: Performed By: #### C BC #### [facility] [address] [place] [address] Dr. Mikala Ramsay Monocytes/100 WBC (Bld) 5.9 % Normal 1.7-12.0 [facility] Comment on above: Performed By: #### C BC #### [facility] [address] [place] [address] Dr. Mikala Ramsay NEUT # 5.0 103/ul Normal 1.4-6.5 [facility] Comment on above: Performed By: #### C BC #### [facility] [address] [place] [address] Dr. Mikala Ramsay Neutrophils/100 WBC (Bld) 75.5 % Critically high 43.0-75.0 [facility] Comment on above: Performed By: #### C BC #### [facility] [address] [place] [address] Dr. Mikala Ramsay Platelet mean volume (Bld) [Entitic vol] 9.2 fL Critically low 9.5-13.5 [facility] Comment on above: Performed By: #### C BC #### [facility] [address] [place] [address] Dr. Mikala Ramsay PLT 286 103/ul Normal 150-450 [facility] Comment on above: Performed By: #### C BC #### [facility] [address] [place] [address] Dr. Mikala Ramsay RBC 4.81 106/ul Normal 4.20-5.40 [facility] Comment on above: Performed By: #### C BC #### [facility] [address] [place] [address] Dr. Mikala Ramsay WBC 6.7 103/ul Normal 4.0-11.0 [facility] Comment on above: Performed By: #### C BC #### [facility] [address] [place] [address] Dr. Mikala Ramsay PREG HCG QUALon 09-06-2022 , QUAL Negative Normal NEGATIVE [facility] Comment on above: Performed By: #### P REG #### [facility] [address] [place] [address] Dr. Mikala Ramsay PROF CHEM 8 (BAS METB)on Anion gap [Moles/Vol] 11.1 mmol/L Normal [facility] Comment on above: Performed By: #### B MP #### [facility] [address] [place] [address] Dr. Mikala Ramsay Calcium [Mass/Vol] 9.0 mg/dL Normal 8.5-10.1 [facility] Comment on above: Performed By: #### B MP #### [facility] [address] [address] [address] Mikala Ramsay Chloride [Moles/Vol] 106 mmol/L Normal 98-107 [facility] Comment on above: Performed By: #### B MP #### [facility] [address] [address] [address] Mikala Ramsay CO2 [Moles/Vol] 25.6 mmol/L Normal 21.0-32.0 [facility] Comment on above: Performed By: #### B MP #### [facility] [address] [address] [address] Mikala Ramsay Creatinine [Mass/Vol] 0.72 mg/dL Normal 0.55-1.02 [facility] Comment on above: Performed By: #### B MP #### [facility] [address] [place] [address] Dr. Mikala Ramsay EGFR-AF SINGAPOREAN >60 Normal >=60 [facility] Comment on above: Performed By: #### B MP #### [facility] [address] [place] [address] Dr. Mikala Ramsay EGFR-NON AF SINGAPOREAN >60 Normal >=60 [facility] Comment on above: Performed By: #### B MP #### [facility] [address] [place] [address] Dr. Mikala Ramsay Glucose [Mass/Vol] 84 mg/dL Normal 74-106 [facility] Comment on above: Performed By: #### B MP #### [facility] [address] [address] [address] Mikala Ramsay Potassium [Moles/Vol] 3.7 mmol/L Normal 3.5-5.1 [facility] Comment on above: Performed By: #### B MP #### [facility] [address] [place] [address] Dr. Mikala Ramsay Sodium [Moles/Vol] 139 mmol/L Normal 136-145 [facility] Comment on above: Performed By: #### B MP #### [facility] [address] [place] [address] Dr. Mikala Ramsay Urea nitrogen [Mass/Vol] 10.0 mg/dL Normal 6.4-19.3 [facility] Comment on above: Performed By: #### B MP #### [facility] [address] [place] [address] Dr. Mikala Ramsay Urea nitrogen/Creatinin e [Mass ratio] 13.9 mg/mg Normal [facility] Comment on above: Performed By: #### B MP #### [facility] [address] [place] [address] Dr. Mikala Ramsay CBC AUTO DIFFon 08-16-2022 BASO # 0.0 103/ul Normal 0.0-0.1 [facility] Comment on above: Performed By: #### C BC #### [facility] [address] [place] [address] Dr. Mikala Ramsay Basophils/100 WBC (Bld) 0.6 % Normal 0.2-2.0 [facility] Comment on above: Performed By: #### C BC #### [facility] [address] [place] [address] Dr. Mikala Ramsay EO # 0.1 103/ul Normal 0.0-0.7 [facility] Comment on above: Performed By: #### C BC #### [facility] [address] [place] [address] Dr. Mikala Ramsay Eosinophils/100 WBC (Bld) 1.3 % Normal 0.9-7.0 [facility] Comment on above: Performed By: #### C BC #### [facility] [address] [place] [address] Dr. Mikala Ramsay Erythrocyte distribution width (RBC) [Ratio] 14.5 % Normal 11.0-15.0 [facility] Comment on above: Performed By: #### C BC #### [facility] [address] [place] [address] Dr. Mikala Ramsay Hematocrit (Bld) [Volume fraction] 37.6 % Normal 36.0-48.0 [facility] Comment on above: Performed By: #### C BC #### [facility] [address] [place] [address] Dr. Mikala Ramsay Hemoglobin (Bld) [Mass/Vol] 12.2 g/dL Normal 12.0-16.0 [facility] Comment on above: Performed By: #### C BC #### [facility] [address] [place] [address] Dr. Mikala Ramsay IG # 0.02 10e3/ul Normal 0.00-0.03 [facility] Comment on above: Performed By: #### C BC #### [facility] [address] [place] [address] Dr. Mikala Ramsay IG % 0.3 % Normal 0.0-0.5 [facility] Comment on above: Performed By: #### C BC #### [facility] [address] [place] [address] Dr. Mikala Ramsay LYMPH # 2.1 103/ul Normal 1.2-3.8 [facility] Comment on above: Performed By: #### C BC #### [facility] [address] [place] [address] Dr. Mikala Ramsay Lymphocytes/100 WBC (Bld) 33.4 % Normal 20.5-60.0 [facility] Comment on above: Performed By: #### C BC #### [facility] [address] [place] [address] Dr. Mikala Ramsay MANUAL DIFF REQ NO Normal [facility] Comment on above: Performed By: #### C BC #### [facility] [address] [place] [address] Dr. Mikala Ramsay MCH (RBC) [Entitic mass] 26.2 pg Critically low 26.7-34.0 [facility] Comment on above: Performed By: #### C BC #### [facility] [address] [place] [address] Dr. Mikala Ramsay MCHC (RBC) [Mass/Vol] 32.4 g/dL Normal 29.9-35.2 [facility] Comment on above: Performed By: #### C BC #### [facility] [address] [place] [address] Dr. Mikala Ramsay MCV (RBC) [Entitic vol] 80.7 fL Critically low 81.0-99.0 [facility] Comment on above: Performed By: #### C BC #### [facility] [address] [place] [address] Dr. Mikala Ramsay MONO # 0.4 103/ul Normal 0.3-0.8 [facility] Comment on above: Performed By: #### C BC #### [facility] [address] [place] [address] Dr. Mikala Ramsay Monocytes/100 WBC (Bld) 6.2 % Normal 1.7-12.0 [facility] Comment on above: Performed By: #### C BC #### [facility] [address] [place] [address] Dr. Mikala Ramsay NEUT # 3.7 103/ul Normal 1.4-6.5 [facility] Comment on above: Performed By: #### C BC #### [facility] [address] [place] [address] Dr. Mikala Ramsay Neutrophils/100 WBC (Bld) 58.2 % Normal 43.0-75.0 [facility] Comment on above: Performed By: #### C BC #### [facility] [address] [place] [address] Dr. Mikala Ramsay Platelet mean volume (Bld) [Entitic vol] 9.3 fL Critically low 9.5-13.5 [facility] Comment on above: Performed By: #### C BC #### [facility] [address] [place] [address] Dr. Mikala Ramsay PLT 310 103/ul Normal 150-450 [facility] Comment on above: Performed By: #### C BC #### [facility] [address] [place] [address] Dr. Mikala Ramsay RBC 4.66 106/ul Normal 4.20-5.40 [facility] Comment on above: Performed By: #### C BC #### [facility] [address] [place] [address] Dr. Mikala Ramsay WBC 6.3 103/ul Normal 4.0-11.0 [facility] Comment on above: Performed By: #### C BC #### [facility] [address] [address] [address] Mikala Ramsay XR elbow LT min 3V*on 2021 XR elbow LT min 3V* [facility] [employer] Other XR elbow LT min 3V* [facility] [employer] Other XR elbow LT min 3V* [address] [place] [address] [employer] Other XR elbow LT min 3V* [place] [address] [employer] Other XR elbow LT min 3V* XRay Report [employer] Other XR elbow LT min 3V* Signed [employer] Other XR elbow LT min 3V* Patient: Shilpi Ware MR#: [id number] [employer] Other XR elbow LT min 3V* : 2005 Acct:[id number] [employer] Other XR elbow LT min 3V* Age/Sex: 16 / F ADM Date: 01/10/22 [employer] Other XR elbow LT min 3V* Loc: XDUCLY Room: Type: [facility] [employer] Other XR elbow LT min 3V* Attending Dr: Lynette GUILLERMO [employer] Other XR elbow LT min 3V* Ordering Provider: LYNETTE FLORES [employer] Other XR elbow LT min 3V* Date of Service: 01/10/22 [employer] Other XR elbow LT min 3V* XR/XR elbow LT min 3V*: Injury of left elbow, initial encounter [employer] Other XR elbow LT min 3V* Copies to: LYNETTE FLORES FIELD SERVICE TECHNICIAN-C [employer] Other XR elbow LT min 3V* XR elbow LT min 3V* 01/10/2022 10:51 AM [employer] Other XR elbow LT min 3V* SIGNS AND SYMPTOMS: Injury of left elbow, left elbow pain [employer] Other XR elbow LT min 3V* PROTOCOL: Frontal, lateral, and oblique radiographs of the left elbow [employer] Other XR elbow LT min 3V* COMPARISON: None [employer] Other XR elbow LT min 3V* FINDINGS: [employer] Other XR elbow LT min 3V* There is no fracture or dislocation. No joint effusion. No soft tissue swelling. The joint spaces [employer] Other XR elbow LT min 3V* are preserved. [employer] Other XR elbow LT min 3V* XR/XR elbow LT min 3V* [employer] Other XR elbow LT min 3V* IMPRESSION: [employer] Other XR elbow LT min 3V* No acute bony injury. [employer] Other XR elbow LT min 3V* Impression dictated by: Johnson Grijalva M.D.01/10/2022 11:26 AM [employer] Other XR elbow LT min 3V* Dictation Location: [facility]13 [employer] Other XR elbow LT min 3V* Transcribed By: YESSY 01/10/22 [facility] [employer] Other XR elbow LT min 3V* Dictated By: Johnson Grijalva II, MD 01/10/22 [facility] [employer] Other XR elbow LT min 3V* Signed By: [employer] Other XR elbow LT min 3V* 01/10/22 1126 [employer] Other Quick Strepon 11-03-2021 S. pyogenes Org specific cx Ql (Throat) Negative [employer] Other [employer] Other Vital Signs Date Time Vital Sign Value Performing Clinician Facility 04-18-2024 14:41-0400 Body height 162.56 cm [employer] Isabellayong Almendarez Work Phone: [facility] 04-18-2024 14:41-0400 Body mass index (BMI) [Ratio] 20.8 kg/m2 [employer] Isabellayong Almendarez Work Phone: [facility] 04-18-2024 14:41-0400 Body temperature 98.8 [degF] [employer] Isabellayong Almendarez Work Phone: [facility] 04-18-2024 14:41-0400 Body weight 54.99 kg [employer] Isabellayong Almendarez Work Phone: [facility] 04-18-2024 14:41-0400 Heart rate 67 /min [employer] CAPTAIN Isabellayong Almendarez Work Phone: [facility] 04-18-2024 14:41-0400 Respiratory rate 18 /min MOTORIZED SQUAD CAPTAIN Isabellayong Almendarez Work Phone: [facility] 04-18-2024 14:41-0400 SaO2% (BldA) [Mass fraction] 98 % [employer]QU[employer] CAPTAIN Isabellayong Almendarez Work Phone: [facility] 01-11-2023 17:10-0500 Body height 163.83 cm Lynette Flores Other [employer] Other 01-11-2023 17:10-0500 Body mass index (BMI) [Ratio] 19.94 kg/m2 Lynette Flores Other [employer] Other 01-11-2023 17:10-0500 Body temperature 98.2 [degF] Lynette Flores Other [employer] Other 01-11-2023 17:10-0500 Body weight 53.52 kg Lynette Flores Other [employer] Other 01-11-2023 17:10-0500 Respiratory rate 18 /min Lynette Flores Other [employer] Other 01-11-2023 17:10-0500 SaO2% (BldA) [Mass fraction] 99 % Lynette Flores Other [employer] Other 12-13-2022 16:30-0500 Body height 162.56 cm Lanny Nieves Other [employer] Other 12-13-2022 16:30-0500 Body mass index (BMI) [Ratio] 20.25 kg/m2 Lanny Nieves Other [employer] Other 12-13-2022 16:30-0500 Body temperature 97.2 [degF] Lanny Nieves Other [employer] Other 12-13-2022 16:30-0500 Body weight 53.52 kg Lanny Nieves Other [employer] Other 12-13-2022 16:30-0500 Respiratory rate 18 /min Lanny Nieves Other [employer] Other 12-13-2022 16:30-0500 SaO2% (BldA) [Mass fraction] 99 % Lanny Nieves Other [employer] Other 07-04-2022 17:25-0400 Body height 163.83 cm Lynette Flores Other [employer] Other 07-04-2022 17:25-0400 Body mass index (BMI) [Ratio] 19.77 kg/m2 Lynette Flores Other [employer] Other 07-04-2022 17:25-0400 Body temperature 97.8 [degF] Lynette Flores Other [employer] Other 07-04-2022 17:25-0400 Body weight 53.07 kg Lynette Flores Other [employer] Other 07-04-2022 17:25-0400 Diastolic blood pressure 65 mm[Hg] Lynette Flores Other [employer] Other 07-04-2022 17:25-0400 Respiratory rate 18 /min Lynette Flores Other [employer] Other 07-04-2022 17:25-0400 SaO2% (BldA) [Mass fraction] 100 % Lynette Flores Other [employer] Other 07-04-2022 17:25-0400 Systolic blood pressure 110 mm[Hg] Lynette Batesault Other [employer] Other 03-16-2022 14:01-0400 Blood Pressure Location Iker BRENDON [facility] 03-16-2022 14:01-0400 Body temperature 97.7 [degF] Iker WNEK [facility] 03-16-2022 14:01-0400 Diastolic blood pressure 68 mm[Hg] Iker WNEK [facility] 03-16-2022 14:01-0400 Heart rate 76 /min Iker WNEK [facility] 03-16-2022 14:01-0400 Respiratory rate 18 /min Iker WNEK [facility] 03-16-2022 14:01-0400 SaO2% (BldA) [Mass fraction] 98 % Iker WNEK [facility] 03-16-2022 14:01-0400 Systolic blood pressure 120 mm[Hg] Iker WNEK [facility] 03-02-2022 14:34-0400 Blood Pressure Location Iker WNEK [facility] 03-02-2022 14:34-0400 Body temperature 98.24 [degF] Iker WNEK [facility] 03-02-2022 14:34-0400 Diastolic blood pressure 60 mm[Hg] Iker WNEK [facility] 03-02-2022 14:34-0400 Heart rate 76 /min Iker WNEK [facility] 03-02-2022 14:34-0400 Respiratory rate 18 /min Iker OLIVAS [facility] 03-02-2022 14:34-0400 SaO2% (BldA) [Mass fraction] 98 % Iker OLIVAS [facility] 03-02-2022 14:34-0400 Systolic blood pressure 118 mm[Hg] Iker OLIVAS [facility] 02-25-2022 10:15-0400 Body height 163.83 cm Maddie Dickson Other [employer] Other 02-25-2022 10:15-0400 Body mass index (BMI) [Ratio] 19.26 kg/m2 Maddie Dickson Other [employer] Other 02-25-2022 10:15-0400 Body temperature 97.1 [degF] Maddie Dickson Other [employer] Other 02-25-2022 10:15-0400 Body weight 51.71 kg Maddie Dickson Other [employer] Other 02-25-2022 10:15-0400 SaO2% (BldA) [Mass fraction] 99 % Maddie Dickson Other [employer] Other 02-22-2022 13:23-0400 Blood Pressure [facility] Marli Rosenberg [facility] 02-22-2022 13:23-0400 Body temperature 97.34 [degF] Marli Chet [facility] 02-22-2022 13:23-0400 Diastolic blood pressure 70 mm[Hg] Marli [facility] 02-22-2022 13:23-0400 Heart rate 80 /min Marli Chet [facility] 02-22-2022 13:23-0400 Respiratory rate 16 /min Marli [facility] 02-22-2022 13:23-0400 SaO2% (BldA) [Mass fraction] 98 % Marli Chet [facility] 02-22-2022 13:23-0400 Systolic blood pressure 118 mm[Hg] Marli [facility] 01-10-2022 11:30-0500 Body height 162.56 cm Lynette Flores Other [employer] Other 01-10-2022 11:30-0500 Body mass index (BMI) [Ratio] 21.45 kg/m2 Lynette Flores Other [employer] Other 01-10-2022 11:30-0500 Body temperature 96.9 [degF] Lynette Flores Other [employer] Other 01-10-2022 11:30-0500 Body weight 56.7 kg Lynette Flores Other [employer] Other 01-10-2022 11:30-0500 Diastolic blood pressure 69 mm[Hg] Lynette Flores Other [employer] Other 01-10-2022 11:30-0500 Respiratory rate 18 /min Lynette Flores Other [employer] Other 01-10-2022 11:30-0500 SaO2% (BldA) [Mass fraction] 99 % Lynette Flores Other [employer] Other 01-10-2022 11:30-0500 Systolic blood pressure 121 mm[Hg] Lynette Flores Other [employer] Other 11-03-2021 17:45-0500 Body height 162.56 cm Maddie Yessi Other [employer] Other 11-03-2021 17:45-0500 Body mass index (BMI) [Ratio] 21.8 kg/m2 Maddie Yessi Other [employer] Other 11-03-2021 17:45-0500 Body temperature 97.8 [degF] Maddie Yessi Other [employer] Other 11-03-2021 17:45-0500 Body weight 57.61 kg Maddie Rosasmond Other [employer] Other 11-03-2021 17:45-0500 Respiratory rate 18 /min Maddie Yessi Other [employer] Other 11-03-2021 17:45-1130 SaO2% (BldA) [Mass fraction] 99 % Maddie Dickson Other [employer] Other Encounters Encounter Date Encounter Type Care Provider Facility Start: 07-23-2024 End: 07-23-2024 ambulatory HO JAYLEN Not Available Start: 04-18-2024 End: 04-18-2024 ambulatory Isabella Almendarez [facility] Work Phone: Start: 04-18-2024 End: 04-18-2024 Departed Referred TRINITY Almendarez Work Phone: [facility] [place] Work Phone: Start: 04-18-2024 End: 04-18-2024 Patient encounter procedure [employer]ED [employer]QU[employer] CAPTAINBetzy Almendarez Work Phone: [facility] Work Phone: Start: 12-29-2023 ambulatory Facility:[facility] Start: 11-27-2023 End: 11-27-2023 ambulatory HO JAYLEN Not Available Start: 01-11-2023 End: 01-11-2023 ambulatory Lynette Flores Other [employer] Other Start: 01-11-2023 Office outpatient visit 25 minutes Lynette Flores [facility] Start: 12-13-2022 End: 12-13-2022 ambulatory Lanny Nieves Other [employer] Other Start: 12-13-2022 Office outpatient visit 15 minutes Lanny Nieves [facility] Start: 11-25-2022 End: 11-25-[address] NONE LISTED REQUEST Facility: Start: 11-03-2022 End: 11-03-2022 ambulatory NONE LISTED REQUEST Facility:[facility] Start: 09-06-2022 End: 10-18-[address] GREG BO . Facility:[facility] Start: 08-18-2022 End: 08-18-2022 ambulatory MD Iker Olivas Work Phone: [facility] Work Phone: Start: 08-18-2022 End: 08-18-2022 Departed Referred MD Iker Olivas Work Phone: [facility] [place] Start: 08-16-2022 End: 08-17-[address] DOCTOR BERRY Facility:[facility] Start: 07-04-2022 End: 07-04-2022 ambulatory Lynette Flores Other [employer] Other Start: 07-04-2022 Office outpatient visit 15 minutes Lynette Flores [facility] Start: 05-05-2022 End: 05-05-2022 ambulatory IKER OLIVAS [facility] Start: 03-16-2022 End: 03-16-2022 Patient encounter procedure Iker OLIVAS [facility] Start: 03-02-2022 End: 03-02-2022 Patient encounter procedure Iker OLIVAS [facility] Start: 02-25-2022 End: 02-25-2022 ambulatory Maddie Dickson Other [employer] Other Start: 02-25-2022 Office outpatient visit 25 minutes Maddie Yessi [facility] Start: 02-22-2022 End: 02-22-2022 Patient encounter procedure Marli Rosenberg [facility] Start: 01-10-2022 End: 01-10-2022 ambulatory Lynette Flores Other [employer] Other Start: 01-10-2022 Office outpatient visit 15 minutes Lynette Flores [facility] Start: 11-03-2021 End: 11-03-2021 ambulatory Maddie Yessi Other [employer] Other Start: 11-03-2021 Office outpatient visit 15 minutes Maddie Yessi [facility] Procedures Date Procedure Procedure Detail Performing Clinician Start: 11-20-2007 Dentition (body structure) Marli Chet Comment on above: multiple surgeries w agatha davis per Shilpi. Plan of Treatment Date Care Activity Detail Author Start: 04-19-2024 Bacteria identified in Urine by Culture [facility] Start: 04-18-2024 Bacteria identified in Urine by Culture [facility] Immunizations Immunization Date Immunization Notes Care Provider Fa cility 12-10-2020 hepatitis A vaccine, pediatric/adolescent dosage, 2 dose schedule Marli Chet [facility] 12-10-2020 meningococcal polysaccharide (groups A, C, Y and W-135) diphtheria toxoid conjugate vaccine (MCV4P) Marli Chet [facility] 09-01-2016 meningococcal ACWY vaccine, unspecified formulation Marli Chet [facility] 09-01-2016 tetanus toxoid, redu matthieu diphtheria toxoid, and acellular pertussis vaccine, adsorbed Marli Chet [facility] 12-10-2013 influenza virus vacc ine, unspecified formulation Marli Chet [facility] 12-11-2008 influenza virus vacc ine, unspecified formulation Marli Rosenberg [facility] 05-01-2008 diphtheria, tetanus toxoids and acellular pertussis vaccine Marli Rosenberg [facility] 05-01-2008 hepatitis B vaccine, adult dosage Marli Rosenberg [facility] 05-01-2008 measles, mumps and rubella virus vaccine Marli Rosenberg [facility] 05-01-2008 poliovirus vaccine, unspecified formulation Marli Rosenberg [facility] 05-01-2008 varicella virus vaccine Brittney Rosenberg [facility] 03-16-2005 diphtheria, tetanus toxoids and acellular pertussis vaccine Marli Rosenberg [facility] 03-16-2005 haemophilus influenz ae type b vaccine, HbOC conjugate Marli Rosenberg [facility] 03-16-2005 measles, mumps and rubella virus vaccine Marli Rosenberg [facility] 03-16-2005 pneumococcal conjuga te vaccine, 13 valent Marli Rosenberg [facility] 03-16-2005 varicella virus vaccine Brittney abshankar Rosenberg [facility] 2004 influenza virus vacc ine, unspecified formulation Marliannia Rosenberg [facility] 2004 diphtheria, tetanus toxoids and acellular pertussis vaccine Marli Rosenberg [facility] 2004 haemophilus influenz ae type b vaccine, HbOC conjugate Marli Rosenberg [facility] 2004 hepatitis B vaccine, adult dosage Marli Rosenberg [facility] 2004 pneumococcal conjuga te vaccine, 13 valent Marli Rosenberg [facility] 2004 poliovirus vaccine, unspecified formulation Marli Rosenberg [facility] 2004 diphtheria, tetanus toxoids and acellular pertussis vaccine Marli Rosenberg [facility] 2004 haemophilus influenz ae type b vaccine, HbOC conjugate Marli Rosenberg [facility] 2004 hepatitis B vaccine, adult dosage Marli Rosenberg [facility] 2004 pneumococcal conjuga te vaccine, 13 valent Marli Chet [facility] 2004 poliovirus vaccine, unspecified formulation Marli Rosenberg [facility] 2004 diphtheria, tetanus toxoids and acellular pertussis vaccine Marli Rosenberg [facility] 2004 haemophilus influenz ae type b vaccine, HbOC conjugate Marli Rosenberg [facility] 2004 hepatitis B vaccine, adult dosage Marli Rosenberg [facility] 2004 pneumococcal conjuga te vaccine, 13 valent Marli Rosenberg [facility] 2004 poliovirus vaccine, unspecified formulation Marli Rosenberg [facility] Payers Date Payer Category Payer Self-pay [id number] 2024 Medicaid [id number] 2023 Private Health Insurance [id number] 2004 Unknown [id number] 2004 Unknown [id number] 2004 Unknown [id number] 2004 Unknown [id number] 2004 Unknown [id number] 2004 Unknown [id number] 1984 Unknown [id number] 1959 Unknown [id number] 2.16. [id number] 1959 Unknown [id number] 2.16.8 [id number] 1959 Unknown [id number] [id number]. [id number] Unknown Josephine / [id number] Unknown [id number] 2.16.8 [id number] Unknown [id number] Social History Date Type Detail Facility Start: 01-07-2022 End: 01-11-2023 Tobacco smoking status Never smoked tobacco (finding) [employer] Other Tobacco smoking status Never [facility] Sex Assigned At Female [employer] Other Start: 2004 Sex Assigned At Female [facility] Clinical Notes 08-21-2013 to 01-11-2023 Note Date & Type Note Facility 01-11-2023 Evaluation note Encounter Date Diagnosis Assessment Notes Dec, Acute effusion of left ear (ICD-10 - H65.192) try this medication and referral sent to ENT since conservative treatment has been used by urgent care and PCP without improvement of symptoms. [employer] Other 01-24-2023 Evaluation note* Encounter Date Diagnosis [...] understanding and is agreeable to treatment plan [employer] Other 08-15-2022 Evaluation note* Encounter Date Diagnosis Assessment Notes Treatment Notes Treatment Clinical Notes Jun, Tooth infection (ICD-10 - K04.7) Take medications as directed.Highly encourage patient to contact dentist CARLY for further treatment of infection. Ok to take OTC medications like ibuprofen with prescriptions [employer] Other 06-16-2022 GeraldShilpi Olmstead Freeman is here for consultation at the request of Iker Olivas MD for: Constipation ---History from parent and patient History of Present Illness My advice was requested by Iker Olivas MD. She is accompanied by her mother and sibling(s). No speech language specialist was used. ABD pain - Patient has [...] 40mg per day Mirala (more content not included)...[facility]04-13-2022 Hospital Discharge instructions Follow Up Care 03/02/2022 15:03:01 With:Iker OLIVAS MD, PED Address: [address] [place] [address] [address] [address]- When:03/30/2022 Comments:recheck dyspnea/chest pain [facility] 04-13-2022 Hospital Discharge instructions Follow Up Care 03/02/2022 09:25:52 With:Iker OLIVAS MD, PED Address: [address] [place] [address] [place] [address]- When:03/16/2022 Comments:recheck SOB [facility] 04-08-2022 Evaluation note* Encounter Date Diagnosis Assessment [...] 3 days. Feb, Bronchitis (ICD-10 - J40) [employer] Other 04-05-2022 Hospital Discharge instructions Follow Up Care 02/22/2022 08:51:47 With:Chet DENTON, Marli ENRIQUE Address: When: Unknown Comments:f/up in 2 months for recheck anxiety [facility] 02-21-2022 Evaluation note* Encounter Date Diagnosis Assessment [...] we will help you get into specialist. [employer] [facility] Other 12-15-2021 Evaluation note* Encounter Date Diagnosis Assessment Notes Treatment Notes Treatment Clinical Notes Oct, Sore throat (ICD-10 - J02.9) Oct, Viral pharyngitis (ICD-10 - J02.9) Drink plenty of fluids, get plenty of rest. Tylenol or Motrin for aches pains or fevers. Follow-up with family physician if no improvement in 2 to 3 days for [employer] Other 10-02-2013 History general Narrative - Reported* Type Description Date Medical History eczema Medical History reactive airway Medical History Radial fracture (resolved 2012) Medical History Strep throat (resolved ) Surgical History dental reconstruction age 1 [employer] Other 10-02-2013 History general Narrative - Reported* Type Description Date Medical History eczema Medical History reactive airway Medical History Radial fracture (resolved 2012) Medical History Strep throat (resolved ) Surgical History dental reconstruction age 1 Surgical History Cyst Removal Left eye 08/2022 [facility] [employer] Other Evaluation + Plan note Referrals to Other Providers Referred by: Marli Rosenberg MD [facility] Evaluation + Plan note Future Appointments Appointment Date:03/16/2022 02:00:00 PM Scheduled Provider:Iker OLIVAS MD Location:[facility] Appointment Type:Peds OV 10 Referrals to Other Providers Referred by: Iker OLIVAS MD [facility] Evaluation + Plan note Future Appointments Appointment Date:03/30/2022 08:40:00 AM Scheduled Provider:Iker OLIVAS MD Location:[facility] Appointment Type:Peds OV 10 [facility] Evaluation noteNo assessment information available [facility] Work Phone: Evalutsdxw note* Diagnosis Onset Date Resolution Status Acute UTI (urinary tract infection) acute [facility] Work Phone: Hospital course Narrative No data available for this section [facility] Reason for Referral Reason *FU 02/02 Middle e ar effusion that is persisting Diagnosis 1 Acute effusion of le ft ear (H65.192) Referral Organization [facility] Family Ankita Rodriguez Referring Provider First Name Lynette Referring Provider Last Name Conrado Referring Provider Specialty Nurse Pract itioner Referred Organization [facility] Referred Provider Fiordaliza Akers Referred Address ,[place], [place],[address] Referred Provider Specialty Ear, Nose an d [...] section and content) DATE CREATED AUTHOR 03/02/2023 [facility] DATE CREATED AUTHOR 'S PRIYA ATION 03/25/2023 [facility] [place] [facility] DATE CREATED AUTHOR AUTHOR'S ORGANIZ ATION 12/30/2023 [facility] DATE CREATED AUTHOR AUTHOR'S ORGANIZ ATION 05/21/2024 [facility] DATE CREATED AUTHOR AUTHOR'S ORGANIZ ATION 07/23/2024 [facility] FOR RECORDS PERTAINING TO PATIENTS WHO [...] BE BASED ON THE PRIMARY CLINICAL RECORDS. [employer] provides no warranty or guarantee of the accuracy or completeness of information in this document.
[2024-09-12 12:08] LABS: HCG Quantitative 3351 mIU/mL
== END 2024-09-12 10:06 | disposition home or self-care (01) ==
LOC: LAB 10:08
PROVIDERS: PCP Nurse Practitioner Family; Visit Provider Obstetrics & Gynecology
DX: Z87.59 Personal history of other complications of pregnancy, childbirth and the puerperium (principal)
CPT/HCPCS: 36415; 84702

== ENCOUNTER 2024-09-14 10:28 | Outpatient (OUT) | payer OTHER, SELFPAY ==
--- OUTSIDE RECORDS SUMMARY | 2024-09-14 10:30 | XMS_ITS | CCD ---
Author Organization [facility] Care Team Providers Care Tax Manager Name Role Phone Iker OLIVAS Primary Care [...] SANTANA Consulting Unavailable TRINITY Almendarez Attending Provider Isabella Almendarez Attending Unavailable Isabella Almendarez Admitting Unavailable NON STAFF Primary Care Unavailable [place] Attending Unavailable [place] Attending Unavailable Unavailable Primary Care Provider Unavailabl e Allergies Allergy Classification Reported Allergen(s) Allergy Type Date of Onset Reaction(s) Facility (10 sources) Latex; Translations: [LATEX] Drug allergy 9 Eruption of skin (disorder), Unknown, Rash [facility] [place] (3 sources) contact metals 1 Drug allergy Eruption of skin (disorder) [facility] Comment on above: family states pt dev elops rash to alumininum in deoderant, fake jewelry (possibly kp?), etc (3 sources) Coconut extract; Translations: [coconut] Drug Allergy 2 Nausea [facility] (1 source) Iron; Translations: [IRON] Drug Allergy 2 [facility]ository (2 sources) contact metal agent Drug allergy (disorder) 4 Rash [facility] Repository (1 source) contact metals; Translations: [contact metals] Propensity to adverse reactions (disorder) [facility] Repository (1 source) contact metal agent Drug allergy (disorder) 4 [facility] Repository (1 source) Coconut extract Drug Allergy 4 GI intolerance [facility] Healthcare (1 source) Other Propensity to adverse reactions 9 Unknown [facility] Healthcare Medications Current Medications Medication Drug Class(es) Dates Sig (Normalized) Sig (Original) albuterol HFA 90 mcg/inh MDI (2 sources) Start: 03-02-2022 take 2 puff(s) by inhalation every four hours as needed for wheezing albuterol HFA 90 mcg/inh MDI 2 puff(s), Inhalation, q4hr as needed for wheezing, 18 gm, Refill(s) 0, [facility]/pharmacy #[id number], 164, cm, 03/02/22 14:37:00 EDT, Height/Length [...] day(s), # 28 tab(s), Refills(s) 0, Pharmacy: [facility]/pharmacy #[id number], 161, cm, 03/16/22 14:08:00 EDT, Height/Length Dosing, 55.9, kg, 03/16/22 14:08:00 EDT, Weight Dosing Start Date: 03/16/22 Stop Date: 03/30/22 Status: Ordered cephalexin 500 mg oral capsule (2 sources) Cephalosporin Antibacterial Start: 04-18-2024 take 500 mg by mouth three times daily Cephalexin Active 500 MG PO Three times daily 09 06April 18, 2024 12:00am Start: 02-25-2022 take 1 capsule by mo [facility] every eight hours Cephalexin 500 MG 1 capsule Orally tid for 10 day(s) Feb, Active cetirizine hydrochloride 10 mg oral tablet (4 sources) Histamine-1 Receptor Antagonist Start: 01-11-2023 take 1 tablet by mouth every twenty-four hours Cetirizine HCl 10 MG 1 tablet Orally Once a day for 30 day(s) Dec, Active Start: 03-02-2022 take 1 tablet by [facility] once daily as needed cetirizine 10 mg Tab 10 mg = 1 tab(s), Oral, Daily, PRN for allergy symptoms, # 30 tab(s), Refills(s) 0, Pharmacy: [facility]/pharmacy #[id number], 164, cm, 03/02/22 14:37:00 EDT, Height/Length [...] qPM, # 30 tab(s), Refills(s) 0, Pharmacy: [facility]/pharmacy #[id number], 165.5, cm, 02/22/22 13:27:00 EDT, Height/Length Dosing, 54, kg, 02/22/22 13:27:00 EDT, Weight Dosing Start Date: 02/22/22 Status: Ordered Progesterone 200 MG suppository (1 source) Start: 09-11-2024 End: 10-11-2024 Progesterone 200 MG suppository Indications: History of miscarriage Insert 200 mg into the vagina at bedtime Insert suppository vaginally every night at bedtime until 12 weeks gestation 30 suppository 2 09/11/2024 10/11/2024 Active triamcinolone acetonide 1 mg/ml topical cream (1 source) Corticosteroid Start: 04-09-2024 triamcinolone (Kenalog) 0.1 % cream 1 Application every 12 (twelve) hours 04/09/2024 Active Completed/Discontinued Medications Medication Drug Class(es) Dates Sig [...] Name Value Interpretation Reference Range Facil ity [facility] PREG QUANT HCGon 024 HCG QUANTITATIVE 3351 mIU/mL [facility] Comment on above: 5-50 0.2-1 WEEK 50-500 1-2 WEEKS 100-5,000 2-3 WEEKS 500-10,000 3-4 WEEKS 1,000-50,000 4-5 WEEKS 10,000-100,000 5-6 WEEKS 15,000-200,000 6-8 WEEKS 10,000-100,000 2-3 MONTHS [facility] Urine Cultureon 04-18-2024 Bacteria identified Cx Nom (U) 50,000 colonies/ml mixed bacterial skin contaminants 2 Days PERFORMED BY: [place] [address] PATHOLOGIST SKI TOPPER MADAN TRIVEDI M.D. Normal [facility] Comment on above: Performed By: #### C UU #### [address] Physician Referralon 024 Physician Referral [phone] [id number] Normal [facility] ER URINE PROFILEon 3 Bilirubin Ql (U) Negative Normal NEGATIVE [place] Comment on above: Performed By: #### E RUR, PREGU #### [facility] [address] [place] [address] Dr. Mikala Ramsay Clarity (U) CLEAR Normal CLEAR [facility] Comment on above: Performed By: #### E RUR, PREGU #### [facility] [address] [place] [address] Dr. Mikala Ramsay Color (U) LT. YELLOW Normal YELLOW [facility] Comment on above: Performed By: #### E RUR, PREGU #### [facility] [address] [place] [address] Dr. Mikala Ramsay ERUAHD A micrscopic examination will be performed if indicated. Normal [facility] Comment on above: Performed By: #### E RUR, PREGU #### [facility] [address] [place] [address] Dr. Mikala Ramsay Glucose Ql (U) Negative Normal NEGATIVE [facility] Comment on above: Performed By: #### E RUR, PREGU #### [facility] [address] [place] [address] Dr. Mikala Ramsay Hemoglobin Ql (U) Negative Normal NEGATIVE [facility] Comment on above: Performed By: #### E RUR, PREGU #### [facility] [address] [place] [address] Dr. Mikala Ramsay Ketones Ql (U) Negative Normal NEGATIVE [facility] Comment on above: Performed By: #### E RUR, PREGU #### [facility] [address] [place] [address] Dr. Mikala Ramsay LEUKOCYTES Negative Normal NEGATIVE [facility] Comment on above: Performed By: #### E RUR, PREGU #### [facility] [address] [place] [address] Dr. Mikala Ramsay Nitrite Ql (U) Negative Normal NEGATIVE [facility] Comment on above: Performed By: #### E RUR, PREGU #### [facility] [address] [place] [address] Dr. Mikala Ramsay pH (U) 8.0 [pH] Normal 5-9 [facility] Comment on above: Performed By: #### E RUR, PREGU #### [facility] [address] [place] [address] Dr. Mikala Ramsay SPEC GRAVITY 1.015 Normal 1.005-<=1.025 [facility] Comment on above: Performed By: #### E RUR, PREGU #### [facility] [address] [place] [address] Dr. Mikala Ramsay UA PROTEIN Negative Normal NEGATIVE/ TRACE [facility] Comment on above: Performed By: #### E RUR, PREGU #### [facility] [address] [place] [address] Dr. Mikala Ramsay UR MICRO IND NOT INDICATED Normal [facility] Comment on above: Performed By: #### E RUR, PREGU #### [facility] [address] [place] [address] Dr. Mikala Ramsay Urobilinogen Qn (U) 0.2 {Jose'U}/dL Normal 0.2 - 1.0 [facility] Comment on above: Performed By: #### E RUR, PREGU #### [facility] [address] [place] [address] Dr. Mikala Ramsay URon 11-25-2022 , QUAL Negative Normal NEGATIVE [facility] Comment on above: Performed By: #### E RUR, PREGU #### [facility] [address] [place] [address] Dr. Mikala Ramsay US PELVIS TRANSVAGon 023 [...] by: JONI MORALES Date: 2022-11-25 17:05 Normal [facility] XR KUB 1 VIEWon 11-25-2022 XR KUB [...] DOMO AN Date: 2022-11-25 14:56 Normal [facility] CBC AUTO DIFFon 09-06-2022 BASO # 0.0 103/ul Normal 0.0-0.1 [facility] Comment on above: Performed By: #### C BC #### [facility] [address] [place] [address] Dr. Mikala Ramsay Basophils/100 WBC (Bld) 0.3 % Normal 0.2-2.0 [facility] Comment on above: Performed By: #### C BC #### [facility] [address] [place] [address] Dr. Mikala Ramsay EO # 0.0 103/ul Normal 0.0-0.7 [facility] Comment on above: Performed By: #### C BC #### [facility] [address] [place] [address] Dr. Mikala Ramsay Eosinophils/100 WBC (Bld) 0.6 % Critically low 0.9-7.0 [facility] Comment on above: Performed By: #### C BC #### [facility] [address] [place] [address] Dr. Mikala Ramsay Erythrocyte distribution width (RBC) [Ratio] 14.0 % Normal 11.0-15.0 [facility] Comment on above: Performed By: #### C BC #### [facility] [address] [place] [address] Dr. Mikala Ramsay Hematocrit (Bld) [Volume fraction] 38.7 % Normal 36.0-48.0 [facility] Comment on above: Performed By: #### C BC #### [facility] [address] [place] [address] Dr. Mikala Ramsay Hemoglobin (Bld) [Mass/Vol] 12.5 g/dL Normal 12.0-16.0 [facility] Comment on above: Performed By: #### C BC #### [facility] [address] [place] [address] Dr. Mikala Ramsay IG # 0.02 10e3/ul Normal 0.00-0.03 [facility] Comment on above: Performed By: #### C BC #### [facility] [address] [place] [address] Dr. Mikala Ramsay IG % 0.3 % Normal 0.0-0.5 [facility] Comment on above: Performed By: #### C BC #### [facility] [address] [place] [address] Dr. Mikala Ramsay LYMPH # 1.2 103/ul Normal 1.2-3.8 [facility] Comment on above: Performed By: #### C BC #### [facility] [address] [place] [address] Dr. Mikala Ramsay Lymphocytes/100 WBC (Bld) 17.4 % Critically low 20.5-60.0 [facility] Comment on above: Performed By: #### C BC #### [facility] [address] [place] [address] Dr. Mikala Ramsay MANUAL DIFF REQ NO Normal [facility] Comment on above: Performed By: #### C BC #### [facility] [address] [place] [address] Dr. Mikala Ramsay MCH (RBC) [Entitic mass] 26.0 pg Critically low 26.7-34.0 [facility] Comment on above: Performed By: #### C BC #### [facility] [address] [place] [address] Dr. Mikala Ramsay MCHC (RBC) [Mass/Vol] 32.3 g/dL Normal 29.9-35.2 [facility] Comment on above: Performed By: #### C BC #### [facility] [address] [place] [address] Dr. Mikala Ramsay MCV (RBC) [Entitic vol] 80.5 fL Critically low 81.0-99.0 [facility] Comment on above: Performed By: #### C BC #### [facility] [address] [place] [address] Dr. Mikala Ramsay MONO # 0.4 103/ul Normal 0.3-0.8 [facility] Comment on above: Performed By: #### C BC #### [facility] [address] [place] [address] Dr. Mikala Ramsay Monocytes/100 WBC (Bld) 5.9 % Normal 1.7-12.0 [facility] Comment on above: Performed By: #### C BC #### [facility] [address] [place] [address] Dr. Mikala Ramsay NEUT # 5.0 103/ul Normal 1.4-6.5 [facility] Comment on above: Performed By: #### C BC #### [facility] [address] [place] [address] Dr. Mikala Ramsay Neutrophils/100 WBC (Bld) 75.5 % Critically high 43.0-75.0 [facility] Comment on above: Performed By: #### C BC #### [facility] [address] [place] [address] Dr. Mikala Ramsay Platelet mean volume (Bld) [Entitic vol] 9.2 fL Critically low 9.5-13.5 [facility] Comment on above: Performed By: #### C BC #### [facility] [address] [place] [address] Dr. Mikala Ramsay PLT 286 103/ul Normal 150-450 [facility] Comment on above: Performed By: #### C BC #### [facility] [address] [place] [address] Dr. Mikala Ramsay RBC 4.81 106/ul Normal 4.20-5.40 [facility] Comment on above: Performed By: #### C BC #### [facility] [address] [place] [address] Dr. Mikala Ramsay WBC 6.7 103/ul Normal 4.0-11.0 [facility] Comment on above: Performed By: #### C BC #### [facility] [address] [address] [address] Mikala Ramsay PREG HCG QUALon 09-06-2022 , QUAL Negative Normal NEGATIVE [facility] Comment on above: Performed By: #### P REG #### [facility] [address] [place] [address] Dr. Mikala Ramsay PROF CHEM 8 (BAS METB)on Anion gap [Moles/Vol] 11.1 mmol/L Normal [facility] Comment on above: Performed By: #### B MP #### [facility] [address] [place] [address] Dr. Mikala Ramsay Calcium [Mass/Vol] 9.0 mg/dL Normal 8.5-10.1 [facility] Comment on above: Performed By: #### B MP #### [facility] [address] [place] [address] Dr. Mikala Ramsay Chloride [Moles/Vol] 106 mmol/L Normal 98-107 [facility] Comment on above: Performed By: #### B MP #### [facility] [address] [place] [address] Dr. Mikala Ramsay CO2 [Moles/Vol] 25.6 mmol/L Normal 21.0-32.0 [facility] Comment on above: Performed By: #### B MP #### [facility] [address] [place] [address] Dr. Mikala Ramsay Creatinine [Mass/Vol] 0.72 mg/dL Normal 0.55-1.02 [facility] Comment on above: Performed By: #### B MP #### [facility] [address] [place] [address] Dr. Mikala Ramsay EGFR-AF NIGERIEN >60 Normal >=60 [place] Comment on above: Performed By: #### B MP #### [facility] [address] [place] [address] Dr. Mikala Ramsay EGFR-NON AF NIGERIEN >60 Normal >=60 [facility] Comment on above: Performed By: #### B MP #### [facility] [address] [address] [address] Mikala Ramsay Glucose [Mass/Vol] 84 mg/dL Normal 74-106 [facility] Comment on above: Performed By: #### B MP #### [facility] [address] [address] [address] Mikala Ramsay Potassium [Moles/Vol] 3.7 mmol/L Normal 3.5-5.1 [facility] Comment on above: Performed By: #### B MP #### [facility] [address] [place] [address] Dr. Mikala Ramsay Sodium [Moles/Vol] 139 mmol/L Normal 136-145 [facility] Comment on above: Performed By: #### B MP #### [facility] [address] [address] [address] Mikala Ramsay Urea nitrogen [Mass/Vol] 10.0 mg/dL Normal 6.4-19.3 [facility] Comment on above: Performed By: #### B MP #### [facility] [address] [address] [address] Mikala Ramsay Urea nitrogen/Creatinin e [Mass ratio] 13.9 mg/mg Normal [facility] Comment on above: Performed By: #### B MP #### [facility] [address] [place] [address] Dr. Mikaal Ramsay CBC AUTO DIFFon 08-16-2022 BASO # 0.0 103/ul Normal 0.0-0.1 [facility] Comment on above: Performed By: #### C BC #### [facility] [address] [address] [address] Mikala Ramsay Basophils/100 WBC (Bld) 0.6 % Normal 0.2-2.0 [facility] Comment on above: Performed By: #### C BC #### [facility] [address] [place] [address] Dr. Mikala Ramsay EO # 0.1 103/ul Normal 0.0-0.7 [facility] Comment on above: Performed By: #### C BC #### [facility] [address] [place] [address] Dr. Mikala Ramsay Eosinophils/100 WBC (Bld) 1.3 % Normal 0.9-7.0 [facility] Comment on above: Performed By: #### C BC #### [facility] [address] [place] [address] Dr. Mikala Ramsay Erythrocyte distribution width (RBC) [Ratio] 14.5 % Normal 11.0-15.0 [facility] Comment on above: Performed By: #### C BC #### [facility] [address] [place] [address] Dr. Mikala Ramsay Hematocrit (Bld) [Volume fraction] 37.6 % Normal 36.0-48.0 [facility] Comment on above: Performed By: #### C BC #### [facility] [address] [place] [address] Dr. Mikala Ramsay Hemoglobin (Bld) [Mass/Vol] 12.2 g/dL Normal 12.0-16.0 [facility] Comment on above: Performed By: #### C BC #### [facility] [address] [place] [address] Dr. Mikala Ramsay IG # 0.02 10e3/ul Normal 0.00-0.03 [facility] Comment on above: Performed By: #### C BC #### [facility] [address] [place] [address] Dr. Mikala Ramsay IG % 0.3 % Normal 0.0-0.5 [facility] Comment on above: Performed By: #### C BC #### [facility] [address] [place] [address] Dr. Mikala Ramsay LYMPH # 2.1 103/ul Normal 1.2-3.8 [facility] Comment on above: Performed By: #### C BC #### [facility] [address] [place] [address] Dr. Mikala Ramsay Lymphocytes/100 WBC (Bld) 33.4 % Normal 20.5-60.0 [facility] Comment on above: Performed By: #### C BC #### [facility] [address] [place] [address] Dr. Mikala Ramsay MANUAL DIFF REQ NO Normal [facility] Comment on above: Performed By: #### C BC #### [facility] [address] [place] [address] Dr. Mikala Ramsay MCH (RBC) [Entitic mass] 26.2 pg Critically low 26.7-34.0 [facility] Comment on above: Performed By: #### C BC #### [facility] [address] [place] [address] Dr. Mikala Ramsay MCHC (RBC) [Mass/Vol] 32.4 g/dL Normal 29.9-35.2 [facility] Comment on above: Performed By: #### C BC #### [facility] [address] [place] [address] Dr. Mikala Ramsay MCV (RBC) [Entitic vol] 80.7 fL Critically low 81.0-99.0 [facility] Comment on above: Performed By: #### C BC #### [facility] [address] [place] [address] Dr. Mikala Ramsay MONO # 0.4 103/ul Normal 0.3-0.8 [facility] Comment on above: Performed By: #### C BC #### [facility] [address] [place] [address] Dr. Mikala Ramsay Monocytes/100 WBC (Bld) 6.2 % Normal 1.7-12.0 [facility] Comment on above: Performed By: #### C BC #### [facility] [address] [place] [address] Dr. Mikala Ramsay NEUT # 3.7 103/ul Normal 1.4-6.5 [facility] Comment on above: Performed By: #### C BC #### [facility] [address] [place], [place] [address] Dr. Mikala Ramsay Neutrophils/100 WBC (Bld) 58.2 % Normal 43.0-75.0 [facility] Comment on above: Performed By: #### C BC #### [facility] [address] [address] [address] Mikala Ramsay Platelet mean volume (Bld) [Entitic vol] 9.3 fL Critically low 9.5-13.5 [facility] Comment on above: Performed By: #### C BC #### [facility] [address] [address] [address] Mikala Ramsay PLT 310 103/ul Normal 150-450 [facility] Comment on above: Performed By: #### C BC #### [facility] [address] [address] [address] Mikala Ramsay RBC 4.66 106/ul Normal 4.20-5.40 [facility] Comment on above: Performed By: #### C BC #### [facility] [address] [address] [address] Mikala Ramsay WBC 6.3 103/ul Normal 4.0-11.0 [facility] Comment on above: Performed By: #### C BC #### [facility] [address] [address] [address] Mikala Ramsay XR elbow LT min 3V*on 2021 XR elbow LT min 3V* [facility] [employer] Other XR elbow LT min 3V* [facility] [employer] Other XR elbow LT min 3V* [address] [place] [address] [employer] [facility] [employer] Other XR elbow LT min 3V* [place] [address] [employer] [facility] [employer] Other XR elbow LT min 3V* XRay Report [facility] [employer] Other XR elbow LT min 3V* Signed [employer] Other XR elbow LT min 3V* Patient: Shilpi Ware MR#: [id number] [employer] Other XR elbow LT min 3V* : 2005 Acct:[id number] [employer] Other XR elbow LT min 3V* Age/Sex: 16 / F ADM Date: 01/10/22 [employer] Other XR elbow LT min 3V* Loc: XDUCLY Room: Type: [facility] [employer] Other XR elbow LT min 3V* Attending Dr: Lynette Flores [facility] [employer] Other XR elbow LT min 3V* [facility] [employer] Other XR elbow LT min 3V* Date of Service: 01/10/22 [employer] Other XR elbow LT min 3V* XR/XR elbow LT min 3V*: Injury of left elbow, initial encounter [employer] Other XR elbow LT min 3V* Copies to: LYNETTE FLORES [facility] [employer] Other XR elbow LT min 3V* XR elbow LT min 3V* 01/10/2022 10:51 AM [employer] Other XR elbow LT min 3V* SIGNS AND SYMPTOMS: Injury of left elbow, left elbow pain [employer] Other XR elbow LT min 3V* PROTOCOL: Frontal, lateral, and oblique radiographs of the left elbow [employer] Other XR elbow LT min 3V* COMPARISON: None [employer] Other XR elbow LT min 3V* FINDINGS: [employer] Other XR elbow LT min 3V* There is no fracture or dislocation. No joint effusion. No soft tissue swelling. The joint spaces [employer] Other XR elbow LT min 3V* are preserved. [employer] Other XR elbow LT min 3V* XR/XR elbow LT min 3V* [employer] Other XR elbow LT min 3V* IMPRESSION: [employer] Other XR elbow LT min 3V* No acute bony injury. [employer] Other XR elbow LT min 3V* Impression dictated by: Johnson Grijalva M.D.01/10/2022 11:26 AM [employer] Other XR elbow LT min 3V* Dictation Location: [place] [address] [employer] Other XR elbow LT min 3V* Transcribed By: YESSY 01/10/22 [facility] [employer] Other XR elbow LT min 3V* Dictated By: Johnson Grijalva II, MD 01/10/22 [facility] [employer] Other XR elbow LT min 3V* Signed By: [employer] Other XR elbow LT min 3V* 01/10/22 [facility] [employer] Other Quick Strepon 11-03-2021 S. pyogenes Org specific cx Ql (Throat) Negative [employer] Other Quick Strep [employer] Other Vital Signs Date Time Vital Sign Value Performing Clinician Facility 04-18-2024 14:41-0400 Body height 162.56 cm TRINITY Almendarez Work Phone: [facility] 04-18-2024 14:41-0400 Body mass index (BMI) [Ratio] 20.8 kg/m2 TRINITY Almendarez Work Phone: [facility] 04-18-2024 14:41-0400 Body temperature 98.8 [degF] TRINITY Almendarez Work Phone: [facility] 04-18-2024 14:41-0400 Body weight 54.99 kg TRINITY Almendarez Work Phone: [facility] 04-18-2024 14:41-0400 Heart rate 67 /min TRINITY Almendarez Work Phone: [facility] 04-18-2024 14:41-0400 Respiratory rate 18 /min TRINITY Almendarez Work Phone: [facility] 04-18-2024 14:41-0400 SaO2% (BldA) [Mass fraction] 98 % TRINITY Almendarez Work Phone: [facility] 01-11-2023 17:10-0500 Body height 163.83 cm Lynette Flores Other [employer] Other 01-11-2023 17:10-0500 Body mass index (BMI) [Ratio] 19.94 kg/m2 Lynette Flores Other [employer] Other 01-11-2023 17:10-0500 Body temperature 98.2 [degF] Lynette Flores Other [employer] Other 01-11-2023 17:10-0500 Body weight 53.52 kg Lynette Flores Other [employer] Other 01-11-2023 17:10-0500 Respiratory rate 18 /min Lynette Flores Other [employer] Other 01-11-2023 17:10-0500 SaO2% (BldA) [Mass fraction] 99 % Lynette Flores Other [employer] Other 12-13-2022 16:30-0500 Body height 162.56 cm Lanny Nieves Other [employer] Other 12-13-2022 16:30-0500 Body mass index (BMI) [Ratio] 20.25 kg/m2 Lanny Nieves Other [employer] Other 12-13-2022 16:30-0500 Body temperature 97.2 [degF] Lanny Nieves Other [facility] Other 12-13-2022 16:30-0500 Body weight 53.52 kg Lanny Nieves Other [facility] Other 12-13-2022 16:30-0500 Respiratory rate 18 /min Lanny Nieves Other [facility] Other 12-13-2022 16:30-0500 SaO2% (BldA) [Mass fraction] 99 % Lanny Nieves Other [facility] Other 07-04-2022 17:25-0400 Body height 163.83 cm Lynette Conrado Other [facility] Other 07-04-2022 17:25-0400 Body mass index (BMI) [Ratio] 19.77 kg/m2 Lynette Conrado Other [facility] Other 07-04-2022 17:25-0400 Body temperature 97.8 [degF] Lynette Conrado Other [facility] Other 07-04-2022 17:25-0400 Body weight 53.07 kg Lynette Flores Other [facility] Other 07-04-2022 17:25-0400 Diastolic blood pressure 65 mm[Hg] Lynette Flores Other [facility] Other 07-04-2022 17:25-0400 Respiratory rate 18 /min Lynette Flores Other [facility] Other 07-04-2022 17:25-0400 SaO2% (BldA) [Mass fraction] 100 % Lynette Flores Other [facility] Other 07-04-2022 17:25-0400 Systolic blood pressure 110 mm[Hg] Lynette Flores Other [facility] Other 03-16-2022 14:01-0400 Blood Pressure Location Iker WNEK [facility] [place] 03-16-2022 14:01-0400 Body temperature 97.7 [degF] Iker WNEK [facility] [place] 03-16-2022 14:01-0400 Diastolic blood pressure 68 mm[Hg] Iker WNEK [facility] [place] 03-16-2022 14:01-0400 Heart rate 76 /min Iker WNEK [facility] [place] 03-16-2022 14:01-0400 Respiratory rate 18 /min Iker WNEK [facility] [place] 03-16-2022 14:01-0400 SaO2% (BldA) [Mass fraction] 98 % Iker WNEK [facility] [place] 03-16-2022 14:01-0400 Systolic blood pressure 120 mm[Hg] Iker WNEK [facility] [place] 03-02-2022 14:34-0400 Blood Pressure Location Iker WNEK [facility] [place] 03-02-2022 14:34-0400 Body temperature 98.24 [degF] Iker WNEK [facility] [place] 03-02-2022 14:34-0400 Diastolic blood pressure 60 mm[Hg] Iker WNEK [facility] [place] 03-02-2022 14:34-0400 Heart rate 76 /min Iker WNEK [facility] [place] 03-02-2022 14:34-0400 Respiratory rate 18 /min Iker WNEK [facility] [place] 03-02-2022 14:34-0400 SaO2% (BldA) [Mass fraction] 98 % Iker WNEK [facility] [place] 03-02-2022 14:34-0400 Systolic blood pressure 118 mm[Hg] Iker WNEK [facility] [place] 02-25-2022 10:15-0400 Body height 163.83 cm Maddie Dickson Other [facility] Other 02-25-2022 10:15-0400 Body mass index (BMI) [Ratio] 19.26 kg/m2 Maddie Dickson Other [facility] Other 02-25-2022 10:15-0400 Body temperature 97.1 [degF] Maddie Dickson Other [facility] Other 02-25-2022 10:15-0400 Body weight 51.71 kg Maddie Dickson Other [facility] Other 02-25-2022 10:15-0400 SaO2% (BldA) [Mass fraction] 99 % Maddie Dickson Other [facility] Other 02-22-2022 13:23-0400 Blood Pressure Location Marli Olds [facility] [place] 02-22-2022 13:23-0400 Body temperature 97.34 [degF] Marli Chet [facility] [place] 02-22-2022 13:23-0400 Diastolic blood pressure 70 mm[Hg] Marli Ainsworth [facility] [place] 02-22-2022 13:23-0400 Heart rate 80 /min Marli Ainsworth [facility] [place] 02-22-2022 13:23-0400 Respiratory rate 16 /min Marli Ainsworth [facility] [place] 02-22-2022 13:23-0400 SaO2% (BldA) [Mass fraction] 98 % Marli Rosenberg [facility] [place] 02-22-2022 13:23-0400 Systolic blood pressure 118 mm[Hg] Marli Rosenberg [facility] [place] 01-10-2022 11:30-0500 Body height 162.56 cm Lynette Conrado Other [facility] Other 01-10-2022 11:30-0500 Body mass index (BMI) [Ratio] 21.45 kg/m2 Lynette Flores Other [facility] Other 01-10-2022 11:30-0500 Body temperature 96.9 [degF] Lynette Conrado Other [facility] Other 01-10-2022 11:30-0500 Body weight 56.7 kg Lynette Conrado Other [facility] Other 01-10-2022 11:30-0500 Diastolic blood pressure 69 mm[Hg] Lynette Flores Other [facility] Other 01-10-2022 11:30-0500 Respiratory rate 18 /min Lynette Flores Other [facility] Other 01-10-2022 11:30-0500 SaO2% (BldA) [Mass fraction] 99 % Lynette Flores Other [facility] Other 01-10-2022 11:30-0500 Systolic blood pressure 121 mm[Hg] Lynette Flores Other [facility] Other 11-03-2021 17:45-0500 Body height 162.56 cm Maddie Dickson Other [facility] Other 11-03-2021 17:45-0500 Body mass index (BMI) [Ratio] 21.8 kg/m2 Maddie Dickson Other [facility] Other 11-03-2021 17:45-0500 Body temperature 97.8 [degF] Maddie Dickson Other [facility] Other 11-03-2021 17:45-0500 Body weight 57.61 kg Maddie Dickson Other [facility] Other 11-03-2021 17:45-0500 Respiratory rate 18 /min Maddie Dickson Other [facility] Other 11-03-2021 17:45-0500 SaO2% (BldA) [Mass fraction] 99 % Maddie Dickson Other [facility] Other Encounters Encounter Date Encounter Type Care Provider Facility Start: 09-12-2024 End: 09-12-2024 Clinisync Result Encounter Ho Nupur DO Work Phone: [facility] Unsolicited Start: 09-12-2024 End: 09-12-2024 Clinisync Result Encounter Ho Nupur DO Work Phone: [facility] Unsolicited Start: 07-23-2024 End: 07-23-2024 ambulatory HO NUPUR Not Available Start: 04-18-2024 End: 04-18-2024 ambulatory Isabella Almendarez [facility] Work Phone: Start: 04-18-2024 End: 04-18-2024 Departed Referred TRINITY Almendarez Work Phone: [facility] [place] Work Phone: Start: 04-18-2024 End: 04-18-2024 Patient encounter procedure TRINITY Almendarez Work Phone: [facility] Work Phone: Start: 12-29-2023 ambulatory Facility:[facility] Start: 11-27-2023 End: 11-27-2023 ambulatory HO NUPUR Not Available Start: 01-11-2023 End: 01-11-2023 ambulatory Lynette Flores Other [facility] Other Start: 01-11-2023 Office outpatient visit 25 minutes Lynette Flores [facility] Start: 12-13-2022 End: 12-13-2022 ambulatory Lanny Nieves Other [facility] Other Start: 12-13-2022 Office outpatient visit 15 minutes Lanny Nieves [facility] Start: 11-25-2022 End: 11-25-2022 ambulatory NONE LISTED REQUEST Facility:[facility] Start: 11-03-2022 End: 11-03-2022 ambulatory NONE LISTED REQUEST Facility:[facility] Start: 09-06-2022 End: 09-06-[address] GREG BO . Facility:[facility] Start: 08-18-2022 End: 08-18-2022 ambulatory MD Iker Olivas Work Phone: [facility] Work Phone: Start: 08-18-2022 End: 08-18-2022 Departed Referred MD Iker Olivas Work Phone: [facility] [place] Start: 08-16-2022 End: 09-28-[address] DOCTOR BERRY Facility:[facility] Start: 07-04-2022 End: 07-04-2022 ambulatory Lynette Conrado Other [facility] Other Start: 07-04-2022 Office outpatient visit 15 minutes Lynette Conrado [facility] Start: 05-05-2022 End: 05-05-2022 ambulatory IKER OLIVAS [facility] Start: 03-16-2022 End: 03-16-2022 Patient encounter procedure Iker OLIVAS [facility] [place] Start: 03-02-2022 End: 03-02-2022 Patient encounter procedure Iker OLIVAS [facility] [place] Start: 02-25-2022 End: 02-25-2022 ambulatory Maddie Dickson Other [facility] Other Start: 02-25-2022 Office outpatient visit 25 minutes Maddie Yessi [facility] Start: 02-22-2022 End: 02-22-2022 Patient encounter procedure Marli ENRIQUE Chet [facility] [place] Start: 01-10-2022 End: 01-10-2022 ambulatory Lynette Flores Other [facility] Other Start: 01-10-2022 Office outpatient visit 15 minutes Lynette Conrado [facility] Start: 11-03-2021 End: 11-03-2021 ambulatory Maddie Dickson Other [facility] Other Start: 11-03-2021 Office outpatient visit 15 minutes Maddie Yessi [facility] Procedures Date Procedure Procedure Detail Performing Clinician Start: 09-12-2024 [facility] P[facility] QUANT HCG Core y Nupur DO Work Phone: Start: 11-20-2007 Dentition (body structure) Marli Rosenberg Comment on above: multiple surgeries vane mcnair Shilpi. Plan of Treatment Date Care Activity Detail Author Start: 07-21-2024 Influenza vaccination Influenza Vacc ine (#1) [facility] Start: 04-19-2024 Bacteria identified in Urine by Culture [facility] Start: 04-18-2024 Bacteria identified in Urine by Culture [facility] Immunizations Immunization Date Immunization Notes Care Provider Fa cility 12-10-2020 hepatitis A vaccine, pediatric/adolescent dosage, 2 dose schedule Marli Rosenberg [facility] [place] 12-10-2020 meningococcal polysaccharide (groups A, C, Y and W-135) diphtheria toxoid conjugate vaccine (MCV4P) Marli Rosenberg [facility] [place] 09-01-2016 meningococcal ACWY vaccine, unspecified formulation Marli Rosenberg [facility] [place] 09-01-2016 tetanus toxoid, redu matthieu diphtheria toxoid, and acellular pertussis vaccine, adsorbed Marliannia Rosenberg [facility] [place] 12-10-2013 influenza virus vacc ine, unspecified formulation Marli Rosenberg [facility] [place] 12-11-2008 influenza virus vacc ine, unspecified formulation Marli Rosenberg [facility] [place] 05-01-2008 diphtheria, tetanus toxoids and acellular pertussis vaccine Marli Rosenberg [facility] [place] 05-01-2008 hepatitis B vaccine, adult dosage Marli Rosenberg [facility] [place] 05-01-2008 measles, mumps and rubella virus vaccine Marli Rosenberg [facility] [place] 05-01-2008 poliovirus vaccine, unspecified formulation Marli Rosenberg [facility] [place] 05-01-2008 varicella virus vaccine Brittney Rosenberg [facility] [place] 03-16-2005 diphtheria, tetanus toxoids and acellular pertussis vaccine Marli Rosenberg [facility] [place] 03-16-2005 haemophilus influenz ae type b vaccine, HbOC conjugate Marli Rosenberg [facility] [place] 03-16-2005 measles, mumps and rubella virus vaccine Marli Rosenberg [facility] [place] 03-16-2005 pneumococcal conjuga te vaccine, 13 valent Marli Rosenberg [facility] [place] 03-16-2005 varicella virus vaccine Brittney Rosenberg [facility] [place] 2004 influenza virus vacc ine, unspecified formulation Marli Rosenberg [facility] [place] 2004 diphtheria, tetanus toxoids and acellular pertussis vaccine Marli Ainsworth [facility] [place] 2004 haemophilus influenz ae type b vaccine, HbOC conjugate Marli Ainsworth [facility] [place] 2004 hepatitis B vaccine, adult dosage Marli Ainsworth [facility] [place] 2004 pneumococcal conjuga te vaccine, 13 valent Marli Olds [facility] [place] 2004 poliovirus vaccine, unspecified formulation Marliannia Rosenberg [facility] [place] 2004 diphtheria, tetanus toxoids and acellular pertussis vaccine Marli Chet [facility] [place] 2004 haemophilus influenz ae type b vaccine, HbOC conjugate Marli Rosenberg [facility] [place] 2004 hepatitis B vaccine, adult dosage Marli Ainsworth [facility] [place] 2004 pneumococcal conjuga te vaccine, 13 valent Marli Ainsworth [facility] [place] 2004 poliovirus vaccine, unspecified formulation Marli Ainsworth [facility] [place] 2004 diphtheria, tetanus toxoids and acellular pertussis vaccine Marli Rosenberg [facility] [place] 2004 haemophilus influenz ae type b vaccine, HbOC conjugate Marli Rosenberg [facility] [place] 2004 hepatitis B vaccine, adult dosage Marli Rosenberg [facility] [place] 2004 pneumococcal conjuga te vaccine, 13 valent Marli Rosenberg [facility] [place] 2004 poliovirus vaccine, unspecified formulation Marli Rosenberg [facility] [place] Payers Date Payer Category Payer Self-pay [id number] 2024 Medicaid [id number] 2023 Private Health Insurance [id number] 2013 Private Health Insurance [id number] 2004 Unknown [id number] 2004 Unknown [id number] 2004 Unknown [id number] 2004 Unknown [id number] 2004 Unknown [id number] 2004 Unknown [id number] 1984 Unknown [id number] 1959 Unknown [id number] 2.16. [id number] 1959 Unknown [id number] 2.16.8 [id number] 1959 Unknown [id number] [id number]. [id number] Unknown Josephine RUBIO/ALMA [id number] Unknown [id number] [id number] Unknown [id number] Social History Date Type Detail Facility Start: 01-07-2022 End: 11-01-2023 Tobacco smoking status Never smoked tobacco (finding) [facility] [employer] Other Tobacco smoking status Never [facility] [place] Start: 07-23-2024 Sex Assigned At Female N [facility] [employer] Other Start: 2004 Sex Assigned At Female F [facility] Start: 11-01-2023 Tobacco use and exposure Smokeless tobacco non-user [facility] Start: 07-23-2024 Alcoholic beverage intake Lifetime non-drinker (finding) [facility] Start: 07-23-2024 History of Social function [facility] Start: 11-01-2023 Alcohol Comment caffeine: pop/ tea once or twice a week [facility] Start: 07-23-2024 Gender identity Identifies as female gender (finding) [facility] Clinical Notes 08-21-2013 to 01-11-2023 Note Date & Type Note Facility 01-11-2023 Evaluation note Encounter Date Diagnosis Assessment Notes Dec, Acute effusion of left ear (ICD-10 - H65.192) try this medication and referral sent to ENT since conservative treatment has been used by urgent care and PCP without improvement of symptoms. [facility] Other 01-24-2023 Evaluation note* Encounter Date Diagnosis [...] understanding and is agreeable to treatment plan [facility] Other 08-15-2022 Evaluation note* Encounter Date Diagnosis Assessment Notes Treatment Notes Treatment Clinical Notes Jun, Tooth infection (ICD-10 - K04.7) Take medications as directed.Highly encourage patient to contact dentist CARLY for further treatment of infection. Ok to take OTC medications like ibuprofen with prescriptions [facility] Other 06-16-2022 Chana Ware is here for consultation at the request of Iker Olivas MD for: Constipation ---History from parent and patient History of Present Illness My advice was requested by Iker Olivas MD. She is accompanied by her mother and sibling(s). No language assistant was used. ABD pain - Patient has [...] and medications were reviewed and updated in [facility] (electronic medical record). Physical Examination Vitals: 05/05/22 [...] 40mg per day Mirala (more content not included)...[facility] [id number] Hospital Discharge instructions Follow Up Care 03/02/2022 15:03:01 With:BRENDON DENTON, Iker Eddy, PED Address: [address] [place] [address] [place] [address]- When:03/30/2022 Comments:recheck dyspnea/chest pain [facility] [place] 04-13-2022 Hospital Discharge instructions Follow Up Care 03/02/2022 09:25:52 With:BRENDON DENTON, Iker Eddy, LENARD Address: [address] [place] [address]- When:03/16/2022 Comments:warren ROMERO [facility] [place] 04-08-2022 Evaluation note* Encounter Date Diagnosis Assessment [...] 3 days. Feb, Bronchitis (ICD-10 - J40) [facility] Other 04-05-2022 Hospital Discharge instructions Follow Up Care 02/22/2022 08:51:47 With:Chet DENTON, Marli ENRIQUE Address: When: Unknown Comments:f/up in 2 months for warren tompkins [facility] [place] 02-21-2022 Evaluation note* Encounter Date Diagnosis Assessment [...] we will help you get into specialist. [facility] Other 12-15-2021 Evaluation note* Encounter Date Diagnosis Assessment Notes Treatment Notes Treatment Clinical Notes Oct, Sore throat (ICD-10 - J02.9) Oct, Viral pharyngitis (ICD-10 - J02.9) Drink plenty of fluids, get plenty of rest. Tylenol or Motrin for aches pains or fevers. Follow-up with family physician if no improvement in 2 to 3 days for [facility] Other 10-02-2013 History general Narrative - Reported* Type Description Date Medical History eczema Medical History reactive airway Medical History Radial fracture (resolved 2012) Medical History Strep throat (resolved 1) Surgical History dental reconstruction age 1 [facility] Other 10-02-2013 History general Narrative - Reported* Type Description Date Medical History eczema Medical History reactive airway Medical History Radial fracture (resolved 2012) Medical History Strep throat (resolved 1) Surgical History dental reconstruction age 1 Surgical History Cyst Removal Left eye 08/2022 [facility] Other Evaluation + Plan note Referrals to Other Providers Referred by: Marli Rosenberg MD [facility] [place] Evaluation + Plan note Future Appointments Appointment Date:03/16/2022 02:00:00 PM Scheduled Provider:Iker OLIVAS MD Location:[facility] Appointment Type:Peds OV 10 Referrals to Other Providers Referred by: Iker OLIVAS MD [facility] [place] Evaluation + Plan note Future Appointments Appointment Date:03/30/2022 08:40:00 AM Scheduled Provider:Iker OLIVAS MD Location:[facility] Appointment Type:Peds OV 10 [facility] [place] Evaluation noteNo assessment information available [facility] Work Phone: Evaluation note* Diagnosis Onset Date Resolution Status Acute UTI (urinary tract infection) acute [facility] Work Phone: Hospital course Narrative No data available for this section [facility] [place] Reason for Referral Reason *FU 02/02 Middle e ar effusion that is persisting Diagnosis 1 Acute effusion of le ft ear (H65.192) Referral Organization [facility] Referring Provider First Name Lynette Referring Provider Last Name Conrado Referring Provider Specialty Nurse Pract raffaeleionekannan Referred Organization [facility] Referred Provider Fiordaliza Akers Referred Address ,[place],[address] Referred Provider Specialty Ear, Nose an d [...] request letter for appt update Advance Directives Advance Directive Response Recorded Date/ Time Advance Directives No July 7:15am Summary Purpose Family History Relationship Condition Age at Onset Recorded Date/T [...] section and content) DATE CREATED AUTHOR 03/02/2023 [facility] DATE CREATED AUTHOR AUTHOR'S ORGANIZ ATION 03/25/2023 [facility] DATE CREATED AUTHOR AUTHOR'S ORGANIZ ATION 12/30/2023 [facility] DATE CREATED AUTHOR AUTHOR'S ORGANIZ ATION 05/21/2024 [facility] DATE CREATED AUTHOR AUTHOR'S ORGANIZ ATION 07/23/2024 [facility] FOR RECORDS PERTAINING TO PATIENTS WHO ARE [...] BE BASED ON THE PRIMARY CLINICAL RECORDS. [employer] [facility] [facility]. provides no warranty or guarantee of the accuracy or completeness of information in this document.
[2024-09-14 11:36] LABS: HCG Quantitative 8309 mIU/mL
== END 2024-09-14 10:29 | disposition home or self-care (01) ==
LOC: LAB 10:29
PROVIDERS: PCP Nurse Practitioner Family; Visit Provider Obstetrics & Gynecology
DX: Z87.59 Personal history of other complications of pregnancy, childbirth and the puerperium (principal)
CPT/HCPCS: 36415; 84702

== ENCOUNTER 2024-10-25 10:08 | Outpatient (OUT) | payer OTHER, SELFPAY ==
--- NOTE | 2024-10-25 10:10 | US_ITS ---
[address] [address] Patient Name: YIN MILLARD MRN: [id number] date: 2005 Sex: F Assigned Patient Location: [facility] Current Patient Location: Accession/Order Number: [id number] Exam Date: 10/25/2024 10:10 Report Date: 10/26/2024 04:54 At the request of: HO YORK Procedure: US OB transvaginal EXAMINATION: US OB transvaginal HISTORY: MISSED MENSES COMPARISON: No relevant comparison available. FINDINGS: GESTATIONAL SAC: Present and normal appearing. YOLK SAC: Present and normal appearing. POLE: Present and normal appearing. CARDIAC: Present. UTERUS: Normal size and appearance. OVARIES: Right: Not seen. Left: Normal. CERVIX: 4.7 cm in length and closed. CUL-DE-SAC: Normal. OTHER: None. AGE BY LMP: 10 weeks 3 days ROXANA BY LMP: 05/20/2025 AGE BY US CRL: 11 weeks 1 day ROXANA BY US CRL: 05/15/2025 US/US OB transvaginal IMPRESSION: 1. Single live intrauterine . Electronically authenticated by: DOMO AN Date: 10/26/2024 04:54
== END 2024-10-25 10:09 | disposition home or self-care (01) ==
LOC: NOMS 10:08
PROVIDERS: PCP Nurse Practitioner Family; Visit Provider Obstetrics & Gynecology
DX: Z34.91 Encounter for supervision of normal pregnancy, unspecified, first trimester (principal); Z3A.11 11 weeks gestation of pregnancy; N92.6 Irregular menstruation, unspecified
CPT/HCPCS: 76817

== ENCOUNTER 2024-10-28 16:14 | Outpatient (OUT) | payer OTHER, SELFPAY ==
[2024-10-28 16:36] LABS: Basophils Percent Auto 0.2 % (0.2-2.0); Eosinophils Percent Auto 0.2 % (0.9-7.0); Hematocrit 36.7 % (36.0-48.0); Hemoglobin 12.5 g/dL (12.0-16.0); Immature Granulocytes Abs Auto 0.04 10^3/uL (0.00-0.03); Immature Granulocytes Pct Auto 0.3 % (0.0-0.5); Lymphocytes Absolute Auto 1.7 10^3/uL (1.2-3.8); Mean Corpuscular HGB Conc 34.1 g/dL (29.9-35.2); Mean Corpuscular Hemoglobin 27.9 pg (26.7-34.0); Mean Corpuscular Volume 81.9 fL (81.0-99.0); Mean Platelet Volume 9.2 fL (9.5-13.5); Monocytes Absolute Auto 0.7 10^3/uL (0.3-0.8); Monocytes Percent Auto 5.6 % (1.7-12.0); Neutrophils Absolute Auto 9.7 10^3/uL (1.4-6.5); Neutrophils Percent Auto 79.7 % (43.0-75.0); Platelet Count 314 10^3/uL (150-450); Red Blood Count 4.48 10^6/uL (4.20-5.40); Red Cell Distribution Width 13.5 % (11.0-15.0); White Blood Count 12.2 10^3/uL (4.0-11.0)
[2024-10-28 16:51] LABS: Amphetamine Screen Urine NEGATIVE (NEGATIVE); Barbiturates Screen Urine NEGATIVE (NEGATIVE); Benzodiazepines Screen Urine NEGATIVE (NEGATIVE); Buprenorphine Screen Urine NEGATIVE (NEGATIVE); Cannabinoid Screen Urine NEGATIVE (NEGATIVE); Cocaine Screen Urine NEGATIVE (NEGATIVE); Methadone Screen Urine NEGATIVE (NEGATIVE); Methamphetamines Screen Urine NEGATIVE (NEGATIVE); Opiate Screen Urine NEGATIVE (NEGATIVE); Oxycodone Screen Urine NEGATIVE (NEGATIVE); Phencyclidine Screen Urine NEGATIVE (NEGATIVE); Tricyclic Antidepressant Urine NEGATIVE (NEGATIVE)
[2024-10-28 16:51] LABS: Estimated Average Glucose 100 mg/dL; Glycohemoglobin A1C 5.1 % (4.5-6.2)
[2024-10-30 06:09] LABS: HBsAg Screen Negative (Negative); HCV Ab Non Reactive (Non Reactive); HIV Ab/p24 Ag Screen Non Reactive (Non Reactive); Rubella Antibodies, IgG 1.57 index (Immune >0.99)
[2024-10-30 15:07] LABS: Rapid Plasma Reagin, Quant Non Reactive titer (NonRea<1:1)
== END 2024-10-28 16:15 | disposition home or self-care (01) ==
LOC: LAB 16:15
PROVIDERS: PCP Nurse Practitioner Family; Visit Provider Obstetrics & Gynecology
DX: Z34.01 Encounter for supervision of normal first pregnancy, first trimester (principal); N92.6 Irregular menstruation, unspecified
CPT/HCPCS: 36415; 80307; 83036; 85025; 86592; 86762; 86803; 86850; 86900; 86901; 87086; 87340; 87389

== ENCOUNTER 2024-11-26 14:43 | Outpatient (OUT) | payer OTHER, SELFPAY ==
[2024-11-29 00:07] LABS: DIA MoM 1.53 (.); DIA Value 302.73 pg/mL (.); DSR (Second Trimester) 1 IN 5462 (.); Gest. Age on Collection Date 15.7 WEEKS (.); Gestat. Age Based On Ultrasound (.); Insulin Dep Diabetes No (.); Maternal Age At EDD 21.1 yr (.); OSBR Risk 1 IN 2393 (.); Results Report (.); hCG MoM 1.83 (.); hCG Value 99255 mIU/mL (.); uE3 MoM 0.89 (.); uE3 Value 0.76 ng/mL (.)
== END 2024-11-26 14:44 | disposition home or self-care (01) ==
LOC: LAB 14:44
PROVIDERS: PCP Nurse Practitioner Family; Visit Provider Obstetrics & Gynecology
DX: Z34.92 Encounter for supervision of normal pregnancy, unspecified, second trimester (principal)
CPT/HCPCS: 36415; 82105; 82677; 84702; 86336

== ENCOUNTER 2025-01-16 13:42 | Outpatient (OUT) | payer OTHER, SELFPAY ==
--- OUTSIDE RECORDS SUMMARY | 2025-01-16 14:00 | XMS_ITS | CCD ---
Author Organization [facility] Care Team Providers Care Commercial Real [employer] Assistant Name Role Phone Iker OLIVAS Primary Care Physician [phone] Maddie Dickson Unavailable Lynette Flores Unavailable MD [...] PAY ., DR DEL ROSARIO Attending Unavailable JUVE, DR DOMO Eddy Consulting Unavailable PAY ., DR DEL ROSARIO Consulting Unavailable STRAWSER, JONI Consulting Unavailable EDUARDO SANTANA Consulting Unavailable TRINITY Almendarez Attending Provider [phone] Unavailable Primary Care Provider UnavailHO Dueñas Referring Unavailable HO ESPITIA Attending Unavailable HO ESPITIA Attending Unavailable HO ESPITIA Attending Unavailable Isabella Almendarez Attending Unavailable Isabella Almendarez Admitting Unavailable NON STAFF Primary Care Unavailable Allergies Allergy Classification Reported Allergen(s) Allergy Type Date of Onset Reaction(s) Facility (20 sources) Latex; Translations: [LATEX] Drug allergy 9 Eruption of skin (disorder), Unknown, Rash [facility] (3 sources) contact metals 1 Drug allergy Eruption of skin (disorder) [facility] Comment on above: family states pt dev elops rash to alumininum in deoderant, fake jewelry (possibly kp?), etc (3 sources) Coconut extract; Translations: [coconut] Drug Allergy 2 Nausea [facility] (1 source) Iron; Translations: [IRON] Drug Allergy 2 [facility] (2 sources) contact metal agent Drug allergy (disorder) 4 Rash [facility] (1 source) contact metals; Translations: [contact metals] Propensity to adverse reactions (disorder) [facility] (13 sources) Coconut extract Drug Allergy 4 GI intolerance [facility] (14 sources) Other Propensity to adverse reactions 9 Unknown [facility] (1 source) contact metal agent Drug allergy (disorder) 4 [facility] Medications Current Medications Medication Drug Class(es) [...] day(s), # 28 tab(s), Refills(s) 0, Pharmacy: [facility]/pharmacy #[id number], 161, cm, 03/16/22 14:08:00 EDT, [...] 02-25-2022 take 1 capsule by mo [facility] every eight hours Cephalexin 500 MG 1 capsule Orally tid for 10 day(s) Feb, Active cetirizine hydrochloride 10 mg oral tablet (4 sources) Histamine-1 Receptor Antagonist Start: 01-11-2023 take 1 tablet by mouth every twenty-four hours Cetirizine HCl 10 MG 1 tablet Orally Once a day for 30 day(s) Dec, Active Start: 03-02-2022 take 1 tablet by frank once daily as needed cetirizine 10 mg Tab 10 mg = 1 tab(s), Oral, Daily, PRN for allergy symptoms, # 30 tab(s), Refills(s) 0, Pharmacy: [facility]/pharmacy #[id number], 164, cm, 03/02/22 14:37:00 EDT, Height/Length Dosing, 54.8, kg, 03/02/22 14:37:00 EDT, Weight Dosing Start Date: 03/02/22 Status: Ordered chlorhexidine gluconate 1.2 mg/ml mouthwash (1 source) Start: 07-04-2022 take 10 mL by mouth twice daily Peridex 0.12 % gargle 10 ml Mouth/Throat twice daily Jun, Active fluticasone propionate 0.05 mg/actuat metered dose nasal spray (2 sources) Corticosteroid Start: 02-22-2023 take 1 spray(s) nasal route once daily Fluticasone Propionate 50 MCG/ACT 1 spray in each nostril Nasally Once a day for 30 day(s) Dec, Active magnesium oxide 400 mg oral tablet (3 sources) Start: 12-30-2024 End: 01-29-2025 take 1 tablet by mouth once daily magnesium oxide (Mag-Ox) 400 MG tablet Indications: Other headache syndrome Take 1 tablet (400 mg) by mouth Daily 30 tablet 6 12/30/2024 01/29/2025 Active methylPREDNISolone 4 mg oral tablet (1 source) Corticosteroid Start: 02-25-2022 Medrol 4 MG as directed Orally as directed for 6 days Feb, Active montelukast 10 mg oral tablet (3 sources) Leukotriene Receptor Antagonist Start: 02-22-2022 take 1 tablet by mouth once daily in the evening montelukast 10 mg Tab 10 mg = 1 tab(s), Oral, qPM, # 30 tab(s), Refills(s) 0, Pharmacy: [facility]/pharmacy #[id number], 165.5, cm, 02/22/22 13:27:00 EDT, Height/Length Dosing, 54, kg, 02/22/22 13:27:00 EDT, Weight Dosing Start Date: 02/22/22 Status: Ordered Progesterone 200 MG suppository (2 sources) Start: 09-11-2024 End: 10-11-2024 Progesterone 200 MG suppository Indications: History of miscarriage Insert 200 mg into the vagina at bedtime Insert suppository vaginally every night at bedtime until 12 weeks gestation 30 suppository 2 09/11/2024 10/11/2024 Active Completed/Discontinued Medications Medication Drug Class(es) Dates Sig (Normalized) Sig (Original) Paxlovid, 300/100, 20 x 150 MG & 10 x 100MG tablet therapy pack (2 sources) Start: 07-02-2024 End: 07-23-2024 Paxlovid, 300/100, 20 x 150 MG & 10 x 100MG tablet therapy pack every 12 (twelve) hours 07/02/2024 07/23/2024 Discontinued (Therapy completed) sulfamethoxazole 800 mg / trimethoprim 160 mg oral tablet (1 source) Dihydrofolate Reductase Inhibitor Antibacterial, Sulfonamide Antimicrobial Start: 04-18-2024 End: 04-18-2024 take 1 tablet by mouth every twelve hours Sulfamethoxazole-T rimethoprim Discontinued 1 TAB PO Every 12 hours 14 7 April 18, 2024 12:00am April 18, 2024 3:05pm triamcinolone acetonide 1 mg/ml topical cream (12 sources) Corticosteroid Start: 04-09-2024 End: 12-30-2024 triamcinolone (Kenalog) 0.1 % cream 1 Application every 12 (twelve) hours 04/09/2024 12/30/2024 Discontinued (Other) Problems Active Problems Problem Classification Problem Date Documented Date Episodic/Chronic Allergic reactions (3 sources) Chronic eczema 12-10-2020 Episodic Anxiety disorders (4 sources) Generalized anxiety disorder; Translations: [Generalized anxiety disorder] Onset: 02-22-2022 Chronic Bacterial infection; unspecified site (1 source) Bacterial infectious disease; Translations: [Other specified bacterial agents as the cause of diseases classified elsewhere] Onset: 03-16-2022 Episodic Conditions associated with dizziness or vertigo (7 sources) Dizziness; Translations: [Lightheadedness] Onset: 01-29-2019 12-10-2020 Episodic Contraceptive and procreative management (4 sources) Patient encounter status; Translations: [Encounter for procreative management, unspecified] 07-23-2024 Episodic Headache; including migraine (7 sources) Frequent headache; Translations: [Chronic headache disorder] 01-07-2022 Episodic Menstrual disorders (1 source) Missed period; Translations: [Irregular menstruation, unspecified] 10-25-2024 Chronic Other connective tissue disease (3 sources) Hand pain 12-10-2020 Episodic Other endocrine disorders (2 sources) Polycystic ovary syndrome; Translations: [Polycystic ovarian syndrome] 07-23-2024 Chronic Other female genital disorders (3 sources) Abnormal uterine and vaginal bleeding, unspecified; Translations: [ABNORMAL UTERINE VAGINAL BLEED UNS] Onset: 09-06-2022 Chronic Other female genital disorders (1 source) Other specified abnormal uterine and vaginal bleeding; Translations: [OTH SPEC ABNORMAL UTERINE VAG BLEED] Onset: 09-07-2022 Chronic Other lower respiratory disease (10 sources) Dyspnea; Translations: [Shortness of breath] Onset: 03-02-2022 Episodic Other and delivery including normal (4 sources) ; Translations: [Encounter for supervision of normal , unspecified, unspecified trimester] 10-25-2024 Episodic Other upper respiratory disease (3 sources) Disorder of pharynx 12-10-2020 Episodic Otitis media and related conditions (2 sources) Other acute nonsuppurative otitis media, left ear Episodic Residual codes; unclassified (3 sources) Feeling nervous 01-07-2022 Episodic Residual codes; unclassified (1 source) Gestation period, 11 weeks; Translations: [11 weeks gestation of ] 10-25-2024 Episodic Residual codes; unclassified (7 sources) Gestation period, 15 weeks; Translations: [15 weeks gestation of ] Onset: 11-26-2024 11-26-2024 Episodic Residual codes; unclassified (5 sources) Gestation period, 20 weeks; Translations: [20 weeks gestation of ] Onset: 12-30-2024 12-30-2024 Episodic Superficial injury; contusion (3 sources) Contusion of elbow 01-07-2022 Episodic Syncope (10 sources) Syncope; Translations: [Near syncope] Onset: 01-29-2019 12-10-2020 Episodic Unclassified (3 sources) Finding of body mass index 12-10-2020 Unclassified (3 sources) Patient encounter status 12-09-2020 Urinary tract infections (2 sources) Acute urinary tract infection; Translations: [Urinary tract infection, site not specified] 04-18-2024 Episodic Viral infection (3 sources) Verruca plantaris 01-07-2022 Episodic Past or Other Problems Problem Classification Problem Date Documented Date Episodic/Chronic Abdominal pain (7 sources) Stomach ache; Translations: [Lower abdominal pain, unspecified] Onset: 11-25-2022 01-07-2022 Episodic Chronic obstructive pulmonary disease and bronchiectasis (1 source) Bronchitis, not specified as acute or chronic Onset: 02-25-2022 Resolved: 02-25-2022 Episodic Disorders of teeth and jaw (1 source) Periapical abscess without sinus Onset: 07-04-2022 Resolved: 07-04-2022 Episodic Fracture of upper limb (6 sources) Closed fracture of radius; Translations: [Radial fracture] Resolved: 08-21-2013 Episodic Genitourinary symptoms and ill-defined conditions (3 sources) Urinary symptoms ; Translations: [Unspecified symptoms and signs involving the genitourinary system] Onset: 04-18-2024 12-30-2024 Episodic Nonspecific chest pain (4 sources) Chest [...] pharyngitis] Onset: 11-03-2021 Resolved: 02-25-2022 01-07-2022 Episodic Results Test Name Value Interpretation Reference Range Facility No Panel Informationon 01-01 STAPHYLOCOCCUS EPIDERMIDIS, HAEMOLYTICUS, LUGDUNENSIS, SAPROPHYTICUS (URINA 0 [facility] STAPHYLOCOCCUS EPIDERMIDIS, HAEMOLYTICUS, LUGDUNENSIS, SAPROPHYTICUS (URINA Not detected [facility] URINARY TRACT INFECTION (HTR X)on 01-01-2025 ACINETOBACTER BAUMANII 0 [facility] ACINETOBACTER BAUMANII Not detected [facility] TYLER ALBICANS, PARAPSILOSIS, TROPICALIS 0 [facility] TYLER ALBICANS, PARAPSILOSIS, TROPICALIS Not detected [facility] TYLER GLABRATA 0 [facility] TYLER GLABRATA Not detected [facility] TYLER KRUSEI 0 [facility]care TYLER KRUSEI Not detected [facility] CITROBACTER FREUNDII 0 [facility] CITROBACTER FREUNDII Not detected [facility] ENTEROBACTER AEROGENES, CLOACAE [address] [facility] re ENTEROBACTER AEROGENES, CLOACAE Not detected [facility] re ENTEROCOCCUS FAECALIS, FAECIUM 0 [facility] e ENTEROCOCCUS FAECALIS, FAECIUM Not detected [facility] e ESCHERICHIA COLI 0 [facility] ESCHERICHIA COLI Not detected [facility] KLEBSIELLA PNEUMONIAE, OXYTOCA 0 [facility] are KLEBSIELLA PNEUMONIAE, OXYTOCA Not detected [facility] are MORGANELLA MORGANII 0 [facility] MORGANELLA MORGANII Not detected [facility] PROTEUS MIRABILIS, VULGARIS 0 [facility] PROTEUS MIRABILIS, VULGARIS Not detected [facility] PSEUDOMONAS AERUGINOSA 0 [facility] PSEUDOMONAS AERUGINOSA Not detected [facility] SERRATIA MARCESCENS 0 [facility] SERRATIA MARCESCENS Not detected [facility] STAPHYLOCOCCUS AUREUS 0 [facility] STAPHYLOCOCCUS AUREUS Not detected [facility] STREPTOCOCCUS AGALACTIAE (GROUP B STREP) 0 [facility] STREPTOCOCCUS AGALACTIAE (GROUP B STREP) Not detected [facility] STREPTOCOCCUS PYOGENES (GROUP A STREP) 0 [facility] STREPTOCOCCUS PYOGENES (GROUP A STREP) Not detected [facility] US OB 14+ WEEKS ANATOMY SCAN on 12-30-2024 US OB 14+ WEEKS ANATOMY SCAN EXAM: US OB 14+ WEEKS ANATOMY SCAN HISTORY: anatomy. TECHNIQUE: Two-dimensional transabdominal grayscale ultrasound imaging of the pelvis was performed. FINDINGS: Gestation: Single Presentation: Cephalic Cardiac Activity: 152 beats per minute Placental Location: Posterior with no sonographic abnormalities identified. Distance from Placental Tip to Cervix: 6.6 cm Cervical Length: 4.2 cm Amniotic Fluid: Appears adequate MEASUREMENTS: BPD: 4.8 cm EGA: 20 weeks 4 days HC: 17.4 cm EGA: 20 weeks 0 days AC: 15.6 cm EGA: 20 weeks 6 days FL: 3.4 cm EGA: 20 weeks 6 days HC/AC Ratio: 1.11 The gestational age by today's ultrasound is 20 weeks 4 days (+/- 10 days gestation). Estimated Weight: 372 grams, +/- 56 grams ( 0 lb 13 oz). Weight Percentile for gestational age: 53 % ANATOMY C-Spine: Unremarkable T-Spine: Unremarkable L-Spine: Unremarkable Sacrum: Unremarkable Four Chamber Heart: Unremarkable LVOT: Unremarkable RVOT: Unremarkable Stomach: Unremarkable Kidneys: Unremarkable Bladder: Unremarkable Diaphragm: Unremarkable Cord insertion: Unremarkable Cord vessels: Three Lateral Ventricles: Unremarkable Cerebellum: Unremarkable Cisterna Magna: Unremarkable Posterior Fossa: Unremarkable Right Femur: Unremarkable Left Femur: Unremarkable Right Tib/Fib: Unremarkable Left Tib/Fib: Unremarkable Right Rad/Ulnar: Unremarkable Left Rad/Ulnar: Unremarkable Right Humerus: Unremarkable Left Humerus: Unremarkable Nose/Lips: Limited Profile: Unremarkable Orbits: Unremarkable IMPRESSION: 1. Single, live intrauterine gestation 20 weeks, 4 days by LMP. Today's ultrasound measurements correlate with a gestational age of 20 weeks 4 days. Estimated weight is 372 grams, +/- 56 grams ( 0 lb 13 oz) which correlates to 53 %. This is within normal limits. ROXANA is 05/15/2025. 2. Limited visualization of the nose/lips. A short-term follow-up ultrasound is recommended. Electronically Signed:Electronical ly signed by ARTURO PUENTE II, MD, PHD at 01-Jan-2025 08:23:57 AM [facility] Normal Not Available Comment on above: Order Comment: US OB ANATOMY SINGLE W US OB CERVICAL LENGTH Estimated Date of Delivery: None noted. Gestational Age as of 11/26/2024: Unknown Urinalysis macro (dipstick) panel (U)on 11-26-2024 Bilirubin, UA Negative Negative - 4(70) +++ mg/dL [facility] Blood, UA Negative Negative - 50 Rambo/mcL [facility] Clarity, UA Clear [facility] re Color, UA Yellow [facility] Glucose, UA Negative Negative - 1999(110) ++++ mg/dL [facility] Interpretation and review of laboratory results Normal [facility] re Ketones, UA Negative Negative - 160(16) ++++ mg/dL [facility] Leukocytes, UA Negative Negative - 500+++ Charity/mcL [facility] Nitrite, UA Negative Negative - Positive [facility] pH, UA 6 5 - 9 [facility] e Protein, UA Negative Negative - 1999(20) ++++ mg/dL [facility] Spec Grav, UA 1.025 1 - 1.03 [facility] Urobilinogen, UA 0.2 0.2 - 12 mg/dL [facility] ALL CBC WITH AUTO DIFFon BASOPHILS ABSOLUTE AUTO 0 [facility] Basophils/100 WBC (Bld) 0.2 % 0.2 - 2.0 % [facility] Eosinophils/100 WBC (Bld) 0.2 % Low 0.9 - 7.0 % [facility] Erythrocyte distribution width (RBC) [Ratio] 13.5 % 11.0 - 15.0 % [facility] Hematocrit (Bld) [Volume fraction] 36.7 % 36.0 - 48.0 % [facility] Hemoglobin (Bld) [Mass/Vol] 12.5 g/dL 12.0 - 16.0 g/dL [facility] IMMATURE GRANULOCYTES ABS AUTO 0.04 High [facility] Immature granulocytes/100 WBC (Bld) 0.3 % 0.0 - 0.5 % [facility] Interpretation and review of laboratory results Abnormal [facility] re LYMPHOCYTES ABSOLUTE AUTO 1.7 [facility] Lymphocytes/100 WBC (Bld) 14 % Low 20.5 - 60.0 % [facility] MCH (RBC) [Entitic mass] 27.9 pg 26.7 - 34.0 pg [facility] MCHC (RBC) [Mass/Vol] 34.1 g/dL 29.9 - 35.2 g/dL [facility] MCV (RBC) [Entitic vol] 81.9 fL 81.0 - 99.0 fL [facility] MONOCYTES ABSOLUTE AUTO 0.7 [facility] Monocytes/100 WBC (Bld) 5.6 % 1.7 - 12.0 % [facility] NEUTROPHILS ABSOLUTE AUTO 9.7 High [facility] Neutrophils/100 WBC (Bld) 79.7 % High 43.0 - 75.0 % [facility] Platelet mean volume (Bld) [Entitic vol] 9.2 fL Low 9.5 - 13.5 fL [facility] TBH EO # 0 [facility] PLT 314 [facility] TB RBC 4.48 [facility] TB WBC 12.2 High [facility] e HCG ( test) Ql (U)o n 10-25-2024 Preg Test, Ur Positive Negative [facility] Urinalysis macro (dipstick) panel (U)on 10-25-2024 Bilirubin, UA Negative Negative - 4(70) +++ mg/dL [facility] Blood, UA Negative Negative - 50 Rambo/mcL [facility] Clarity, UA Clear [facility] re Color, UA Yellow [facility] e Glucose, UA Negative Negative - 1999(110) ++++ mg/dL [facility] Interpretation and review of laboratory results Normal [facility] re Ketones, UA Negative Negative - 160(16) ++++ mg/dL [facility] Leukocytes, UA Negative Negative - 500+++ Charity/mcL [facility] Nitrite, UA Negative Negative - Positive [facility] pH, UA 6 5 - 9 [facility] Protein, UA Negative Negative - 1999(20) ++++ mg/dL [facility] Spec Grav, UA 1.025 1 - 1.03 [facility] Urobilinogen, UA 0.2 0.2 - 12 mg/dL [facility] TBH PREG QUANT HCGon --2 024 HCG QUANTITATIVE 8309 mIU/mL [facility] ltare Comment on above: 5-50 0.2-1 WEEK 50-500 1-2 WEEKS 100-5,000 2-3 WEEKS 500-10,000 3-4 WEEKS 1,000-50,000 4-5 WEEKS 10,000-100,000 5-6 WEEKS 15,000-200,000 6-8 WEEKS 10,000-100,000 2-3 MONTHS [facility] e TBH PREG QUANT HCGon -24-2 024 HCG QUANTITATIVE 3351 mIU/mL [facility] Comment on above: 5-50 0.2-1 WEEK 50-500 1-2 WEEKS 100-5,000 2-3 WEEKS 500-10,000 3-4 WEEKS 1,000-50,000 4-5 WEEKS 10,000-100,000 5-6 WEEKS 15,000-200,000 6-8 WEEKS 10,000-100,000 2-3 MONTHS [facility] e ALL CBC WITH AUTO DIFFon BASOPHILS ABSOLUTE AUTO 0.0 [facility] Basophils/100 WBC (Bld) 0.3 % 0.2 - 2.0 % [facility] Eosinophils/100 WBC (Bld) 0.8 % Low 0.9 - 7.0 % [facility] Erythrocyte distribution width (RBC) [Ratio] 13.0 % 11.0 - 15.0 % [facility] Hematocrit (Bld) [Volume fraction] 37.4 % 36.0 - 48.0 % [facility] e Hemoglobin (Bld) [Mass/Vol] 12.1 g/dL 12.0 - 16.0 g/dL [facility] IMMATURE GRANULOCYTES ABS AUTO 0.02 [facility] Immature granulocytes/100 WBC (Bld) 0.3 % 0.0 - 0.5 % [facility] Interpretation and review of laboratory results Abnormal [facility] re LYMPHOCYTES ABSOLUTE AUTO 1.5 [facility] Lymphocytes/100 WBC (Bld) 24.5 % 20.5 - 60.0 % [facility] MCH (RBC) [Entitic mass] 26.5 pg Low 26.7 - 34.0 pg [facility] MCHC (RBC) [Mass/Vol] 32.4 g/dL 29.9 - 35.2 g/dL [facility] MCV (RBC) [Entitic vol] 81.8 fL 81.0 - 99.0 fL [facility] MONOCYTES ABSOLUTE AUTO 0.3 [facility] Monocytes/100 WBC (Bld) 4.5 % 1.7 - 12.0 % [facility] NEUTROPHILS ABSOLUTE AUTO 4.1 [facility] Neutrophils/100 WBC (Bld) 69.6 % 43.0 - 75.0 % [facility] Platelet mean volume (Bld) [Entitic vol] 9.5 fL 9.5 - 13.5 fL [facility] TBH EO # 0.1 [facility] TBH PLT 318 [facility] TB[facility] RBC 4.57 [facility] TB[facility] WBC 6.0 [facility] Urine Cultureon 04-18-2024 Bacteria identified Cx Nom (U) 50,000 colonies/ml mixed bacterial skin contaminants 2 Days PERFORMED BY: [place] [address] PATHOLOGIST OUTSOLE SKIVER MADAN TRIVEDI M.D. Normal [facility] Comment on above: Performed By: #### C UU #### [address] Physician Referralon 024 Physician Referral [phone] [id number] Normal [facility] ER URINE PROFILEon 3 Bilirubin Ql (U) Negative Normal NEGATIVE [facility] Comment on above: Performed By: #### E RUR, PREGU #### [facility] [address] [address] [address] Mikala Ramsay Clarity (U) CLEAR Normal CLEAR [facility] Comment on above: Performed By: #### E RUR, PREGU #### [facility] [address] [address] [address] Mikala Ramsay Color (U) LT. YELLOW Normal YELLOW [facility] Comment on above: Performed By: #### E RUR, PREGU #### [facility] [address] [address] [address] Mikala SPRAGUE A micrscopic examination will be performed if indicated. Normal [facility] Comment on above: Performed By: #### E RUR, PREGU #### [facility] [address] [place] [address] Dr. Mikala Ramsay Glucose Ql (U) Negative Normal NEGATIVE The [facility] Comment on above: Performed By: #### E RUR, PREGU #### [facility] [address] [address] [address] Mikala Ramsay Hemoglobin Ql (U) Negative Normal NEGATIVE [facility] Comment on above: Performed By: #### E RUR, PREGU #### [facility] [address] [place] [address] Dr. Mikala Ramsay Ketones Ql (U) Negative Normal NEGATIVE The [facility] Comment on above: Performed By: #### E RUR, PREGU #### [facility] [address] [place] [address] Dr. Mikala Ramsay LEUKOCYTES Negative Normal NEGATIVE [facility] Comment on above: Performed By: #### E RUR, PREGU #### [facility] [address] [place] [address] Dr. Mikala Ramsay Nitrite Ql (U) Negative Normal NEGATIVE [facility] Comment on above: Performed By: #### E RUR, PREGU #### [facility] [address] [place] [address] Dr. Mikala Ramsay pH (U) 8.0 [pH] Normal 5-9 [facility] Comment on above: Performed By: #### E RUR, PREGU #### [facility] [address] [place] [address] Dr. Mikala Ramsay SPEC GRAVITY 1.015 Normal 1.005-<=1.025 [facility] Comment on above: Performed By: #### E RUR, PREGU #### [facility] [address] [place] [address] Dr. Mikala Ramsay UA PROTEIN Negative Normal NEGATIVE/ TRACE [facility] Comment on above: Performed By: #### E RUR, PREGU #### [facility] [address] [address] [address] Mikala Ramsay UR MICRO IND NOT INDICATED Normal [facility] Comment on above: Performed By: #### E RUR, PREGU #### [facility] [address] [address] [address] Mikala Ramsay Urobilinogen Qn (U) 0.2 {Jose'U}/dL Normal 0.2 - 1. 0 [facility] Comment on above: Performed By: #### E RUR, PREGU #### [facility] [address] [place] [address] Dr. Mikala Ramsay URon 11-25-2022 , QUAL Negative Normal NEGATIVE [facility] Comment on above: Performed By: #### E RUR, PREGU #### [facility] [address] [place] [address] Dr. Mikala Ramsay US PELVIS TRANSVAGon 023 [...] JONI MORALES Date: 2022-11-25 17:05 Normal [facility] XR KUB 1 VIEWon 11-25-2022 XR [...] DOMO AN Date: 2022-11-25 14:56 Normal [facility] CBC AUTO DIFFon 09-06-2022 BASO # 0.0 103/ul Normal 0.0-0.1 [facility] Comment on above: Performed By: #### C BC #### [facility] [address] [address] [address] Mikala Ramsay Basophils/100 WBC (Bld) 0.3 % Normal 0.2-2.0 [facility] Comment on above: Performed By: #### C BC #### [facility] [address] [address] [address] Mikala Ramsay EO # 0.0 103/ul Normal 0.0-0.7 [facility] Comment on above: Performed By: #### C BC #### [facility] [address] [address] [address] Mikala Ramsay Eosinophils/100 WBC (Bld) 0.6 % Critically low 0.9-7.0 [facility] Comment on above: Performed By: #### C BC #### [facility] [address] [address] [address] Mikala Ramsay Erythrocyte distribution width (RBC) [Ratio] 14.0 % Normal 11.0-15.0 [facility] Comment on above: Performed By: #### C BC #### [facility] [address] [address] [address] Mikala Ramsay Hematocrit (Bld) [Volume fraction] 38.7 % Normal 36.0-48.0 [facility] Comment on above: Performed By: #### C BC #### [facility] [address] [address] [address] Mikala Ramsay Hemoglobin (Bld) [Mass/Vol] 12.5 g/dL Normal 12.0-16.0 [facility] Comment on above: Performed By: #### C BC #### [facility] [address] [address] [address] Mikala Ramsay IG # 0.02 10e3/ul Normal 0.00-0.03 [facility] Comment on above: Performed By: #### C BC #### [facility] [address] [address] [address] Mikala Ramsay IG % 0.3 % Normal 0.0-0.5 [facility] Comment on above: Performed By: #### C BC #### [facility] [address] [place] [address] Dr. Mikala Ramsay LYMPH # 1.2 103/ul Normal 1.2-3.8 [facility] Comment on above: Performed By: #### C BC #### [facility] [address] [place] [address] Dr. Mikala Rasmay Lymphocytes/100 WBC (Bld) 17.4 % Critically low 20.5-60.0 [facility] Comment on above: Performed By: #### C BC #### [facility] [address] [place] [address] Dr. Mikala Ramsay MANUAL DIFF REQ NO Normal [facility] Comment on above: Performed By: #### C BC #### [facility] [address] [place] [address] Dr. Mikala Ramsay MCH (RBC) [Entitic mass] 26.0 pg Critically low 26.7-34.0 [facility] Comment on above: Performed By: #### C BC #### [facility] [address] [place] [address] Dr. Mikala Ramsay MCHC (RBC) [Mass/Vol] 32.3 g/dL Normal 29.9-35.2 [facility] Comment on above: Performed By: #### C BC #### [facility] [address] [place] [address] Dr. Mikala Ramsay MCV (RBC) [Entitic vol] 80.5 fL Critically low 81.0-99.0 [facility] Comment on above: Performed By: #### C BC #### [facility] [address] [address] [address] Mikala Ramsay MONO # 0.4 103/ul Normal 0.3-0.8 [facility] Comment on above: Performed By: #### C BC #### [facility] [address] [place] [address] Dr. Mikala Ramsay Monocytes/100 WBC (Bld) 5.9 % Normal 1.7-12.0 [facility] Comment on above: Performed By: #### C BC #### [facility] [address] [place] [address] Dr. Mikala Ramsay NEUT # 5.0 103/ul Normal 1.4-6.5 [facility] Comment on above: Performed By: #### C BC #### [facility] [address] [place] [address] Dr. Mikala Ramsay Neutrophils/100 WBC (Bld) 75.5 % Critically high 43.0-75.0 [facility] Comment on above: Performed By: #### C BC #### [facility] [address] [place] [address] Dr. Mikala Ramsay Platelet mean volume (Bld) [Entitic vol] 9.2 fL Critically low 9.5-13.5 [facility] Comment on above: Performed By: #### C BC #### [facility] [address] [place] [address] Dr. Mikala Ramsay PLT 286 103/ul Normal 150-450 [facility] Comment on above: Performed By: #### C BC #### [facility] [address] [place] [address] Dr. Mikala Ramsay RBC 4.81 106/ul Normal 4.20-5.40 [facility] Comment on above: Performed By: #### C BC #### [facility] [address] [place] [address] Dr. Mikala Ramsay WBC 6.7 103/ul Normal 4.0-11.0 [facility] Comment on above: Performed By: #### C BC #### [facility] [address] [place] [address] Dr. Mikala Ramsay PREG HCG QUALon 09-06-2022 , QUAL Negative Normal NEGATIVE [facility] Comment on above: Performed By: #### P REG #### [facility] [address] [address] [address] Mikala Ramsay PROF CHEM 8 (BAS METB)on Anion gap [Moles/Vol] 11.1 mmol/L Normal [facility] Comment on above: Performed By: #### B MP #### [facility] [address] [address] [address] Mikala Ramsay Calcium [Mass/Vol] 9.0 mg/dL Normal 8.5-10.1 [facility] Comment on above: Performed By: #### B MP #### [facility] [address] [place] [address] Dr. Mikala Ramsay Chloride [Moles/Vol] 106 mmol/L Normal 98-107 [facility] Comment on above: Performed By: #### B MP #### [facility] [address] [address] [address] Mikala Ramsay CO2 [Moles/Vol] 25.6 mmol/L Normal 21.0-32.0 [facility] Comment on above: Performed By: #### B MP #### [facility] [address] [place] [address] Dr. Mikala Ramsay Creatinine [Mass/Vol] 0.72 mg/dL Normal 0.55-1.02 [facility] Comment on above: Performed By: #### B MP #### [facility] [address] [address] [address] Mikala Ramsay EGFR-AF GUATEMALAN >60 Normal >=60 [facility] Comment on above: Performed By: #### B MP #### [facility] [address] [address] [address] Mikala Ramsay EGFR-NON AF GUATEMALAN >60 Normal >=60 [facility] Comment on above: Performed By: #### B MP #### [facility] [address] [place] [address] Dr. Mikala Ramsay Glucose [Mass/Vol] 84 mg/dL Normal 74-106 [facility] Comment on above: Performed By: #### B MP #### [facility] [address] [address] [address] Mikala Ramsay Potassium [Moles/Vol] 3.7 mmol/L Normal 3.5-5.1 [facility] Comment on above: Performed By: #### B MP #### [facility] [address] [address] [address] Mikala Ramsay Sodium [Moles/Vol] 139 mmol/L Normal 136-145 [facility] Comment on above: Performed By: #### B MP #### [facility] [address] [address] [address] Mikala Ramsay Urea nitrogen [Mass/Vol] 10.0 mg/dL Normal 6.4-19.3 [facility] Comment on above: Performed By: #### B MP #### [facility] [address] [place] [address] Dr. Mikala Ramsay Urea nitrogen/Creatinine [Mass ratio] 13.9 mg/mg Normal [facility] Comment on above: Performed By: #### B MP #### [facility] [address] [place] [address] Dr. Mikala Ramsay CBC AUTO DIFFon 08-16-2022 BASO # 0.0 103/ul Normal 0.0-0.1 [facility] Comment on above: Performed By: #### C BC #### [facility] [address] [place] [address] Dr. Mikala Ramsay Basophils/100 WBC (Bld) 0.6 % Normal 0.2-2.0 [facility] Comment on above: Performed By: #### C BC #### [facility] [address] [place] [address] Dr. Mikala Ramsay EO # 0.1 103/ul Normal 0.0-0.7 [facility] Comment on above: Performed By: #### C BC #### [facility] [address] [place] [address] Dr. Mikala Ramsay Eosinophils/100 WBC (Bld) 1.3 % Normal 0.9-7.0 [facility] Comment on above: Performed By: #### C BC #### [facility] [address] [place] [address] Dr. Mikala Ramsay Erythrocyte distribution width (RBC) [Ratio] 14.5 % Normal 11.0-15.0 [facility] Comment on above: Performed By: #### C BC #### [facility] [address] [place] [address] Dr. Mikala Ramsay Hematocrit (Bld) [Volume fraction] 37.6 % Normal 36.0-48.0 [facility] Comment on above: Performed By: #### C BC #### [facility] [address] [place] [address] Dr. Mikala Ramsay Hemoglobin (Bld) [Mass/Vol] 12.2 g/dL Normal 12.0-16.0 [facility] Comment on above: Performed By: #### C BC #### [facility] [address] [place] [address] Dr. Mikala Ramsay IG # 0.02 10e3/ul Normal 0.00-0.03 [facility] Comment on above: Performed By: #### C BC #### [facility] [address] [place] [address] Dr. Mikala Ramsay IG % 0.3 % Normal 0.0-0.5 [facility] Comment on above: Performed By: #### C BC #### [facility] [address] [place] [address] Dr. Mikala Ramsay LYMPH # 2.1 103/ul Normal 1.2-3.8 [facility] Comment on above: Performed By: #### C BC #### [facility] [address] [place] [address] Dr. Mikala Ramsay Lymphocytes/100 WBC (Bld) 33.4 % Normal 20.5-60.0 [facility] Comment on above: Performed By: #### C BC #### [facility] [address] [place] [address] Dr. Mikala Ramsay MANUAL DIFF REQ NO Normal [facility] Comment on above: Performed By: #### C BC #### [facility] [address] [place] [address] Dr. Mikala Ramsay MCH (RBC) [Entitic mass] 26.2 pg Critically low 26.7-34.0 [facility] Comment on above: Performed By: #### C BC #### [facility] [address] [place] [address] Dr. Mikala Ramsay MCHC (RBC) [Mass/Vol] 32.4 g/dL Normal 29.9-35.2 [facility] Comment on above: Performed By: #### C BC #### [facility] [address] [place] [address] Dr. Mikala Ramsay MCV (RBC) [Entitic vol] 80.7 fL Critically low 81.0-99.0 [facility] Comment on above: Performed By: #### C BC #### [facility] [address] [place] [address] Dr. Mikala Ramsay MONO # 0.4 103/ul Normal 0.3-0.8 [facility] Comment on above: Performed By: #### C BC #### [facility] [address] [place] [address] Dr. Mikala Ramsay Monocytes/100 WBC (Bld) 6.2 % Normal 1.7-12.0 [facility] Comment on above: Performed By: #### C BC #### [facility] [address] [place] [address] Dr. Mikala Ramsay NEUT # 3.7 103/ul Normal 1.4-6.5 [facility] Comment on above: Performed By: #### C BC #### [facility] [address] [place] [address] Dr. Mikala Ramsay Neutrophils/100 WBC (Bld) 58.2 % Normal 43.0-75.0 [facility] Comment on above: Performed By: #### C BC #### [facility] [address] [place] [address] Dr. Mikala Ramsay Platelet mean volume (Bld) [Entitic vol] 9.3 fL Critically low 9.5-13.5 [facility] Comment on above: Performed By: #### C BC #### [facility] [address] [place], [place] [address] Dr. Mikala Ramsay PLT 310 103/ul Normal 150-450 [facility] Comment on above: Performed By: #### C BC #### [facility] [address] [place], [place] [address] Dr. Mikala Ramsay RBC 4.66 106/ul Normal 4.20-5.40 [facility] Comment on above: Performed By: #### C BC #### [facility] [address] [place], [place] [address] Dr. Mikala Ramsay WBC 6.3 103/ul Normal 4.0-11.0 [facility] Comment on above: Performed By: #### C BC #### [facility] [address] [address] [address] Mikala Ramsay XR elbow LT min 3V*on 2021 XR elbow LT min 3V* [facility] [employer] [facility] [employer] Other XR elbow LT min 3V* [facility] [employer] Other XR elbow LT min 3V* [address] [place] [address] [employer] Other XR elbow LT min 3V* [place] [address] [employer] [facility] [employer] Other XR elbow LT min 3V* XRay Report [facility] [employer] Other XR elbow LT min 3V* Signed [employer] Other XR elbow LT min 3V* Patient: Shilpi Ware MR#: [id number] [employer] Other XR elbow LT min 3V* : 2005 Acct:[id number] [employer] Other XR elbow LT min 3V* Age/Sex: 16 / F ADM Date: 01/10/22 [employer] Other XR elbow LT min 3V* Loc: XDUCLY Room: Type: REG CLI [employer] Other XR elbow LT min 3V* Attending Dr: Lynette GUILLERMO [employer] Other XR elbow LT min 3V* Ordering Provider: LYNETTE FLORES [employer] Other XR elbow LT min 3V* Date of Service: 01/10/22 [employer] Other XR elbow LT min 3V* XR/XR elbow LT min 3V*: Injury of left elbow, initial encounter [employer] Other XR elbow LT min 3V* Copies to: LYNETTE FLORES [facility] [employer] Other XR elbow LT min 3V* XR elbow LT min 3V* 01/10/2022 10:51 AM [employer] Other XR elbow LT min 3V* SIGNS AND SYMPTOMS: Injury of left elbow, left elbow pain [employer] Other XR elbow LT min 3V* PROTOCOL: Frontal, lateral, and oblique radiographs of the left elbow [employer] Other XR elbow LT min 3V* COMPARISON: None [employer] Other XR elbow LT min 3V* FINDINGS: [employer] Other XR elbow LT min 3V* There is no fracture or dislocation. No joint effusion. No soft tissue swelling. The joint spaces [employer] Other XR elbow LT min 3V* are preserved. [facility] [employer] Other XR elbow LT min 3V* XR/XR elbow LT min 3V* [employer] Other XR elbow LT min 3V* IMPRESSION: [facility] [employer] Other XR elbow LT min 3V* No acute bony injury. [employer] Other XR elbow LT min 3V* Impression dictated by: Johnson Grijalva M.D.01/10/2022 11:26 AM [employer] Other XR elbow LT min 3V* Dictation Location: [place] [address] [employer] Other XR elbow LT min 3V* Transcribed By: YESSY 01/10/22 1126 [employer] Other XR elbow LT min 3V* Dictated By: Johnson Grijalva II, MD 01/10/22 [facility]5 [employer] Other XR elbow LT min 3V* Signed By: [employer] Other XR elbow LT min 3V* 01/10/22 1126 No rt [facility] Other [employer] 11-03-2021 S. pyogenes Org specific cx Ql (Throat) Negative [employer] Other [employer] Other Vital Signs Date Time Vital Sign Value Performing Clinician Facility 12-30-2024 14:44-0500 Body mass index (BMI) [Ratio] 21.63 kg/m2 Ho Nupur DO Work Phone: [facility] 12-30-2024 14:44-0500 Body weight 57.15 kg Ho Nupur DO Work Phone: [facility] 12-30-2024 14:44-0500 Diastolic blood pressure 66 mm[Hg] Ho Nupur DO Work Phone: [facility] 12-30-2024 14:44-0500 Systolic blood pressure 100 mm[Hg] Ho Nupur DO Work Phone: [facility] 10-25-2024 11:17-0500 Body mass index (BMI) [Ratio] 20.08 kg/m2 [facility] 10-25-2024 11:17-0500 Body weight 53.07 kg [facility] Nurse [facility] 10-25-2024 11:17-0500 Diastolic blood pressure 68 mm[Hg] [facility] Nurse [facility] 10-25-2024 11:17-0500 Systolic blood pressure 102 mm[Hg] [facility] Nurse [facility] 07-23-2024 09:34-0400 Body mass index (BMI) [Ratio] 20.08 kg/m2 Ho Nupur DO Work Phone: [facility] 07-23-2024 09:34-0400 Body weight 53.07 kg Ho Nupur DO Work Phone: [facility] 07-23-2024 09:34-0400 Diastolic blood pressure 68 mm[Hg] Ho Nupur DO Work Phone: [facility] 07-23-2024 09:34-0400 Systolic blood pressure 104 mm[Hg] Ho Nupur DO Work Phone: [facility] 04-18-2024 14:41-0400 Body height 162.56 cm 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 Work Phone: [facility] 04-18-2024 14:41-0400 Body mass index (BMI) [Ratio] 20.8 kg/m2 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 Work Phone: [facility] 04-18-2024 14:41-0400 Body temperature 98.8 [degF] TRINITY Almendarez Work Phone: [facility] 04-18-2024 14:41-0400 Body weight 54.99 kg 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 Work Phone: [facility] 04-18-2024 14:41-0400 Heart rate 67 /min 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 Work Phone: [facility] 04-18-2024 14:41-0400 Respiratory rate 18 /min TRINITY Almendarez Work Phone: [facility] 04-18-2024 14:41-0400 SaO2% (BldA) [Mass fraction] 98 % TRINITY Isabella Almendarez Work Phone: [facility] 01-11-2023 17:10-0500 Body height 163.83 cm Lynette Flores Other [employer] Other 01-11-2023 17:10-0500 Body mass index (BMI) [Ratio] 19.94 kg/m2 Lynette Flores Other [employer] Other 01-11-2023 17:10-0500 Body temperature 98.2 [degF] Lynette Flores Other [employer] Other 01-11-2023 17:10-0500 Body weight 53.52 kg Lynette Flores Other [employer] Other 01-11-2023 17:10-0500 Respiratory rate 18 /min Lynette Flores Other [employer] Other 01-11-2023 17:10-0500 SaO2% (BldA) [Mass fraction] 99 % Lynette Flores Other [employer] Other 12-13-2022 16:30-0500 Body height 162.56 cm Lanny Nieves Other [employer] Other 12-13-2022 16:30-0500 Body mass index (BMI) [Ratio] 20.25 kg/m2 Lanny Nieves Other [employer] Other 12-13-2022 16:30-0500 Body temperature 97.2 [degF] Lanny Nieves Other [employer] Other 12-13-2022 16:30-0500 Body weight 53.52 kg Lanny Nieves Other [employer] Other 12-13-2022 16:30-0500 Respiratory rate 18 /min Lanny Nieves Other [employer] Other 12-13-2022 16:30-0500 SaO2% (BldA) [Mass fraction] 99 % Lanny Nieves Other [employer] Other 07-04-2022 17:25-0400 Body height 163.83 cm Lynette Batesault Other [employer] Other 07-04-2022 17:25-0400 Body mass index (BMI) [Ratio] 19.77 kg/m2 Lynette Conrado Other [employer] Other 07-04-2022 17:25-0400 Body temperature 97.8 [degF] Lynette Conrado Other [employer] Other 07-04-2022 17:25-0400 Body weight 53.07 kg Lynette Batesault Other [employer] Other 07-04-2022 17:25-0400 Diastolic blood pressure 65 mm[Hg] Lynette Conrado Other [employer] Other 07-04-2022 17:25-0400 Respiratory rate 18 /min Lynette Conrado Other [employer] Other 07-04-2022 17:25-0400 SaO2% (BldA) [Mass fraction] 100 % Lynette Flores Other [employer] Other 07-04-2022 17:25-0400 Systolic blood pressure 110 mm[Hg] Lynette Flores Other [facility] [employer] Other 03-16-2022 14:01-0400 Blood Pressure Location Iker BARRYEK [facility] 03-16-2022 14:01-0400 Body temperature 97.7 [degF] Iker BARRYEK [facility] 03-16-2022 14:01-0400 Diastolic blood pressure 68 mm[Hg] Iker BARRYEK [facility] 03-16-2022 14:01-0400 Heart rate 76 /min Iker BARRYEK [facility] 03-16-2022 14:01-0400 Respiratory rate 18 /min Iker BARRYEK [facility] 03-16-2022 14:01-0400 SaO2% (BldA) [Mass fraction] 98 % Iker BARRYEK [facility] 03-16-2022 14:01-0400 Systolic blood pressure 120 mm[Hg] Iker BARRYEK [facility] 03-02-2022 14:34-0400 Blood Pressure Location Iker BARRYEK [facility] 03-02-2022 14:34-0400 Body temperature 98.24 [degF] Iker BARRYEK [facility] 03-02-2022 14:34-0400 Diastolic blood pressure 60 mm[Hg] Iker WNEK [facility] 03-02-2022 14:34-0400 Heart rate 76 /min Iker WNEK [facility] 03-02-2022 14:34-0400 Respiratory rate 18 /min Iker BARRYEK [facility] 03-02-2022 14:34-0400 SaO2% (BldA) [Mass fraction] 98 % Iker BARRYEK [facility] 03-02-2022 14:34-0400 Systolic blood pressure 118 mm[Hg] Iker BARRYEK [facility] 02-25-2022 10:15-0400 Body height 163.83 cm Maddie Rosasmond Other [employer] Other 02-25-2022 10:15-0400 Body mass index (BMI) [Ratio] 19.26 kg/m2 Maddie Rosasmond Other [employer] Other 02-25-2022 10:15-0400 Body temperature 97.1 [degF] Maddie Rosasmond Other [employer] Other 02-25-2022 10:15-0400 Body weight 51.71 kg Maddie Yessi Other [employer] Other 02-25-2022 10:15-0400 SaO2% (BldA) [Mass fraction] 99 % Maddie Dickson Other [employer] Other 02-22-2022 13:23-0400 Blood Pressure Location Marli [place] [facility] 02-22-2022 13:23-0400 Body temperature 97.34 [degF] Marli [place] [facility] 02-22-2022 13:23-0400 Diastolic blood pressure 70 mm[Hg] Marli [place] [facility] 02-22-2022 13:23-0400 Heart rate 80 /min Marli [place] [facility] 02-22-2022 13:23-0400 Respiratory rate 16 /min Marli [place] [facility] 02-22-2022 13:23-0400 SaO2% (BldA) [Mass fraction] 98 % Marli [place] [facility] 02-22-2022 13:23-0400 Systolic blood pressure 118 mm[Hg] Marli [place] [facility] 01-10-2022 11:30-0500 Body height 162.56 cm Lynette Flores Other [employer] Other 01-10-2022 11:30-0500 Body mass index (BMI) [Ratio] 21.45 kg/m2 Lynette Flores Other [employer] Other 01-10-2022 11:30-0500 Body temperature 96.9 [degF] Lynette Flores Other [employer] Other 01-10-2022 11:30-0500 Body weight 56.7 kg Lynette Flores Other [employer] Other 01-10-2022 11:30-0500 Diastolic blood pressure 69 mm[Hg] Lynette Flores Other [employer] Other 01-10-2022 11:30-0500 Respiratory rate 18 /min Lynette Flores Other [employer] Other 01-10-2022 11:30-0500 SaO2% (BldA) [Mass fraction] 99 % Lynette Flores Other [employer] Other 01-10-2022 11:30-0500 Systolic blood pressure 121 mm[Hg] Lynette Flores Other [employer] Other 11-03-2021 17:45-0500 Body height 162.56 cm Maddie Rosasmond Other [employer] Other 11-03-2021 17:45-0500 Body mass index (BMI) [Ratio] 21.8 kg/m2 Maddie Yessi Other [employer] Other 11-03-2021 17:45-0500 Body temperature 97.8 [degF] Maddie Yessi Other [employer] Other 11-03-2021 17:45-0500 Body weight 57.61 kg Maddie Dickson Other [employer] Other 11-03-2021 17:45-0500 Respiratory rate 18 /min Maddie Dickson Other [employer] Other 11-03-2021 17:45-0500 SaO2% (BldA) [Mass fraction] 99 % Maddie Dickson Other [employer] Other Encounters Encounter Date Encounter Type Care Provider Facility Start: 12-30-2024 End: 12-30-2024 ambulatory HO NUPUR Not Available Start: 12-30-2024 End: 12-30-2024 flow sheet Ho Nupur DO Work Phone: [facility] Comment on above: Third trimester preg lucy; 20 weeks gestation of ; Near syncope; UTI symptoms; Lightheadedness; Other headache syndrome Start: 12-30-2024 End: 01-01-2025 External Result Encounter Ho Nupur DO Work Phone: [facility] External Department Unsolicited Start: 12-30-2024 End: 01-01-2025 External Result Encounter Ho Nupur DO Work Phone: [facility] External Department Unsolicited Start: 12-30-2024 End: 12-30-2024 ambulatory HO NUPUR Not Available Start: 11-26-2024 End: 11-26-2024 Bamboo flowsheet Ho Nupur DO Work Phone: [facility] Start: 11-26-2024 End: 11-26-2024 Bamboo flowsheet Ho Nupur DO Work Phone: [facility] Start: 11-26-2024 End: 11-26-2024 ambulatory HO NUPUR Not Available Start: 11-26-2024 End: 11-26-2024 flow sheet Ho Nupur DO Work Phone: [facility] Comment on above: 15 weeks gestation o f ; Screening, , for anatomic survey Start: 10-28-2024 End: 10-28-2024 Clinisync Result Encounter Ho Nupur DO Work Phone: [facility] Unsolicited Start: 10-28-2024 End: 10-28-2024 Clinisync Result Encounter Ho Nupur DO Work Phone: [facility] Unsolicited Start: 10-25-2024 End: 10-25-2024 ambulatory [facility] Nupur Nurse [facility] Start: 09-14-2024 End: 09-14-2024 Clinisync Result Encounter Ho Nupur DO Work Phone: [facility] Unsolicited Start: 09-14-2024 End: 09-14-2024 Clinisync Result Encounter Ho Nupur DO Work Phone: [facility] Unsolicited Start: 09-12-2024 End: 09-12-2024 Clinisync Result Encounter Ho Nupur DO Work Phone: [facility] Unsolicited Start: 09-12-2024 End: 09-12-2024 Clinisync Result Encounter Ho Nupur DO Work Phone: [facility] Unsolicited Start: 07-25-2024 End: 07-25-2024 Clinisync Result Encounter Ho Nupur DO Work Phone: [facility] Unsolicited Start: 07-25-2024 End: 07-25-2024 Clinisync Result Encounter Ho Nupur DO Work Phone: [facility] Unsolicited Start: 07-23-2024 End: 07-23-2024 Bamboo flowsheet Ho Nupur DO Work Phone: [facility] Start: 07-23-2024 End: 07-23-2024 Bamboo flowsheet Ho Nupur DO Work Phone: [facility] Start: 07-23-2024 End: 07-23-2024 ambulatory HO NUPUR Not Available Start: 07-23-2024 End: 07-23-2024 Office outpatient visit 15 minutes Ho Nupur DO Work Phone: [facility] Comment on above: Encounter for infert ility; PCOS (polycystic ovarian syndrome) Start: 04-18-2024 End: 04-18-2024 ambulatory Isabella Almendarez [facility] Work Phone: Start: 04-18-2024 End: 04-18-2024 Departed Referred TRINITY Almendarez Work Phone: [facility] [place] Work Phone: Start: 04-18-2024 End: 04-18-2024 Patient encounter procedure TRINITY Almendarez Work Phone: [facility] Work Phone: Start: 12-29-2023 ambulatory Facility:[facility] Start: 01-11-2023 End: 01-11-2023 ambulatory Lynette Flores Other [employer] [facility] [employer] Other Start: 01-11-2023 Office outpatient visit 25 minutes Lynette Flores [facility] Start: 12-13-2022 End: 12-13-2022 ambulatory Lanny Nieves Other [employer] Other Start: 12-13-2022 Office outpatient visit 15 minutes aLnny Nieves [facility] Start: 11-25-2022 End: 11-25-2022 ambulatory NONE LISTED REQUEST Facility:[facility] Start: 11-03-2022 End: 11-03-2022 ambulatory NONE LISTED REQUEST Facility:[facility] Start: 09-06-2022 End: 09-06-[address] GREG BO . Facility:[facility] Start: 08-18-2022 End: 08-18-2022 ambulatory MD Iker Olivas Work Phone: [facility] Work Phone: Start: 08-18-2022 End: 08-18-2022 Departed Referred MD Iker Olivas Work Phone: [facility] [place] Start: 08-16-2022 End: 08-17-[address] DOCTOR BERRY Facility: Start: 07-04-2022 End: 07-04-2022 ambulatory Lynette Flores Other [employer] Other Start: 07-04-2022 Office outpatient visit 15 minutes Lynette Flores [facility] Start: 05-05-2022 End: 05-05-2022 ambulatory IKER OLIVAS [facility] Start: 03-16-2022 End: 03-16-2022 Patient encounter procedure Iker OLIVAS [facility] Start: 03-02-2022 End: 03-02-2022 Patient encounter procedure Iker OLIVAS [facility] Start: 02-25-2022 End: 02-25-2022 ambulatory Maddie Dickson Other [employer] Other Start: 02-25-2022 Office outpatient visit 25 minutes Maddie Dickson [facility] Start: 02-22-2022 End: 02-22-2022 Patient encounter procedure Marli Rosenberg [facility] Start: 01-10-2022 End: 01-10-2022 ambulatory Lynette Flores Other [employer] Other Start: 01-10-2022 Office outpatient visit 15 minutes Lynette Flores [facility] Start: 11-03-2021 End: 11-03-2021 ambulatory Maddie Yessi Other [employer] Other Start: 11-03-2021 Office outpatient visit 15 minutes Maddie Dickson [facility] Procedures Date Procedure Procedure Detail Performing Clinician Start: 12-30-2024 URINARY TRACT INFECT ION (HTRX) Ho Nupur DO Work Phone: Start: 11-26-2024 Urnls dip stick/tabl et rgnt non-auto w/o micrscp Ho Nupur DO Work Phone: Start: 10-28-2024 ALL CBC WITH AUTO DIFF Ho Nupur DO Work Phone: Start: 10-25-2024 Urnls dip stick/tabl et rgnt non-auto w/o micrscp Ho Nupur DO Work Phone: Start: 09-14-2024 [facility] PREG QUANT HCG Core y Nupur DO Work Phone: Start: 09-12-2024 [facility] PREG QUANT HCG Core y Nupur DO Work Phone: Start: 07-25-2024 ALL CBC WITH AUTO DIFF Ho Nupur DO Work Phone: Start: 11-20-2007 Dentition (body structure) Marli Rosenberg Comment on above: multiple surgeries w agatha davis per Shilpi. Plan of Treatment Date Care Activity Detail Author Start: 01-23-2025 End: 01-23-2025 Patient encounter procedure 01/23/2025 10:20 AM EST Routine [facility] [address] [facility] [address] Ho Espitia, DO [address] [place] [address] [facility] Start: 12-30-2024 End: 12-30-2025 12 lead ECG ECG 12 lead unit performed ECG Routine Near syncope Lightheadedness Expected: 12/30/2024 (Approximate), Expires: 12/30/2025 [facility] Comment on above: Expected: 12/30/2024 (Approximate), Expires: 12/30/2025 Start: 12-30-2024 End: 12-30-2026 Echocardiogram 2D complete Echocardiogram 2D complete Echocardiography Routine Near syncope Lightheadedness Expected: 12/30/2024 (Approximate), Expires: 12/30/2026 [facility] Comment on above: Expected: 12/30/2024 (Approximate), Expires: 12/30/2026 Start: 12-30-2024 End: 12-30-2024 Patient encounter procedure 12/30/2024 11:30 AM EST Routine [facility] [address] [place] [id number] Ho Espitia, DO [address] [place] [address] [place] [address] [facility] Start: 12-30-2024 End: 12-30-2024 Professional / ancillary services management 12/30/2024 10:30 AM EST Ancillary Procedure [facility] [address] [place] [id number] [facility] Start: 11-26-2024 End: 01-24-2025 Alpha fetoprotein, maternal Alpha fetoprotein, maternal Lab Routine 15 weeks gestation of Expected: 11/26/2024 (Approximate), Expires: 01/24/2025 [facility] Comment on above: Expected: 11/26/2024 (Approximate), Expires: 01/24/2025 Start: 11-26-2024 End: 11-26-2025 US for US OB 14+ weeks anatomy scan Imaging Routine 15 weeks gestation of Screening, , for anatomic survey Expected: 11/26/2024, Expires: 11/26/2025 [facility] Work Phone: Comment on above: Expected: 11/26/2024 , Expires: 11/26/2025 Start: 11-26-2024 End: 11-26-2024 Patient encounter procedure 11/26/2024 11:30 AM EST Routine [facility] [address] [place] [id number] Ho Espitia, DO [address] [place] [address] [facility] Start: 10-25-2024 End: 10-25-2025 ABO/Rh ABO/Rh Lab Routine Missed menses , unspecified gestational age Expected: 10/25/2024 (Approximate), Expires: 10/25/2025 [facility] Comment on above: Expected: 10/25/2024 (Approximate), Expires: 10/25/2025 Start: 10-25-2024 End: 10-25-2025 Blood type and Indirect antibody screen panel - Blood Type and screen Lab Routine Missed menses , unspecified gestational age Expected: 10/25/2024 (Approximate), Expires: 10/25/2025 [facility] Work Phone: Comment on above: Expected: 10/25/2024 (Approximate), Expires: 10/25/2025 Start: 10-25-2024 End: 10-25-2025 Drugs of abuse panel - Urine by Screen method Rapid drug screen, urine Lab Routine , unspecified gestational age Encounter for supervision of normal first in first trimester Expected: 10/25/2024 (Approximate), Expires: 10/25/2025 [facility] Comment on above: Expected: 10/25/2024 (Approximate), Expires: 10/25/2025 Start: 10-25-2024 End: 10-25-2025 US Pelvis transvaginal US OB transvaginal Imaging Routine Missed menses Expected: 10/25/2024 (Approximate), Expires: 10/25/2025 [facility] Comment on above: Expected: 10/25/2024 (Approximate), Expires: 10/25/2025 Start: 07-23-2024 End: 07-23-2025 Antimullerian hormone (AMH) Antimullerian hormone (AMH) Lab Routine Encounter for infertility PCOS (polycystic ovarian syndrome) Expected: 07/23/2024 (Approximate), Expires: 07/23/2025 [facility] Comment on above: Expected: 07/23/2024 (Approximate), Expires: 07/23/2025 Start: 07-23-2024 End: 07-23-2025 DHEA DHEA Lab Routine PCOS (polycystic ovarian syndrome) Expected: 07/23/2024 (Approximate), Expires: 07/23/2025 [facility] Comment on above: Expected: 07/23/2024 (Approximate), Expires: 07/23/2025 Start: 07-23-2024 End: 07-23-2025 US for US PELVIS-TRANSVAG IF INDICATED Imaging Routine PCOS (polycystic ovarian syndrome) Expected: 07/23/2024 (Approximate), Expires: 07/23/2025 [facility] Comment on above: Expected: 07/23/2024 (Approximate), Expires: 07/23/2025 Start: 07-21-2024 Influenza vaccination Influenza Vacc ine (#1) [facility] Start: 04-19-2024 Bacteria identified in Urine by Culture [facility] Start: 04-18-2024 Bacteria identified in Urine by Culture [facility] Bacteria identified in Urine by Culture Urine culture Microbiology Routine Missed menses Ordered: 10/25/2024 [facility] Comment on above: Ordered: 10/25/2024 Bacteria identified in Urine by Culture Urine culture Microbiology Routine UTI symptoms Ordered: 12/30/2024 [facility] Work Phone: Comment on above: Ordered: 12/30/2024 CBC W Auto Different ial panel - Blood CBC and differential Lab Routine PCOS (polycystic ovarian syndrome) Ordered: 07/23/2024 [facility] Comment on above: Ordered: 07/23/2024 CBC W Auto Different ial panel - Blood CBC and differential Lab Routine Missed menses , unspecified gestational age Ordered: 10/25/2024 [facility] Comment on above: Ordered: 10/25/2024 CBC W Auto Different ial panel - Blood CBC and differential Lab Routine Near syncope Lightheadedness Ordered: 12/30/2024 [facility] Comment on above: Ordered: 12/30/2024 DHEA-sulfate DHEA-sulfate Lab Routine PCOS (polycystic ovarian syndrome) Ordered: 07/23/2024 [facility] Comment on above: Ordered: 07/23/2024 Estradiol Estradiol Lab Ro utine Encounter for infertility PCOS (polycystic ovarian syndrome) Ordered: 07/23/2024 [facility] Comment on above: Ordered: 07/23/2024 Follicle stimulating hormone Follicle stimulating hormone Lab Routine PCOS (polycystic ovarian syndrome) Ordered: 07/23/2024 [facility] Comment on above: Ordered: 07/23/2024 hCG, quantitative, hCG, quantitative, Lab Routine PCOS (polycystic ovarian syndrome) Ordered: 07/23/2024 [facility] Work Phone: Comment on above: Ordered: 07/23/2024 Hemoglobin A1c/Hemoglobin.total in Blood Hemoglobin A1c Lab Routine Encounter for infertility PCOS (polycystic ovarian syndrome) Ordered: 07/23/2024 [facility] Comment on above: Ordered: 07/23/2024 Hemoglobin A1c/Hemoglobin.total in Blood Hemoglobin A1c Lab Routine Missed menses , unspecified gestational age Ordered: 10/25/2024 [facility] Comment on above: Ordered: 10/25/2024 Hepatitis B virus surface Ag [Presence] in Serum or Plasma by Immunoassay Hepatitis B surface antigen Lab Routine Missed menses , unspecified gestational age Ordered: 10/25/2024 [facility] Comment on above: Ordered: 10/25/2024 Hepatitis C virus Ab [Presence] in Serum or Plasma by Immunoassay Hepatitis C antibody Lab Routine Missed menses , unspecified gestational age Ordered: 10/25/2024 [facility] Comment on above: Ordered: 10/25/2024 HIV-1/HIV-2 antigen/antibody combination immunoassay HIV-1 and HIV-2 antibodies Lab Routine Missed menses , unspecified gestational age Ordered: 10/25/2024 [facility] Comment on above: Ordered: 10/25/2024 Luteinizing hormone Luteinizing hormone Lab Routine PCOS (polycystic ovarian syndrome) Ordered: 07/23/2024 [facility] Comment on above: Ordered: 07/23/2024 Progesterone Progesterone Lab Routine Encounter for infertility PCOS (polycystic ovarian syndrome) Ordered: 07/23/2024 [facility] Comment on above: Ordered: 07/23/2024 Reagin Ab [Presence] in Serum by RPR RPR Lab Routine Missed menses , unspecified gestational age Ordered: 10/25/2024 [facility] Comment on above: Ordered: 10/25/2024 Rubella antibody, IgG Rubella an tibody, IgG Lab Routine Missed menses , unspecified gestational age Ordered: 10/25/2024 [facility] Comment on above: Ordered: 10/25/2024 Thyrotropin [Units/volume] in Serum or Plasma TSH Lab Routine PCOS (polycystic ovarian syndrome) Ordered: 07/23/2024 [facility] Comment on above: Ordered: 07/23/2024 Thyrotropin [Units/volume] in Serum or Plasma TSH Lab Routine Near syncope Lightheadedness Ordered: 12/30/2024 [facility] Comment on above: Ordered: 12/30/2024 Thyroxine (T4) free [Mass/volume] in Serum or Plasma T4, free Lab Routine PCOS (polycystic ovarian syndrome) Ordered: 07/23/2024 [facility] Comment on above: Ordered: 07/23/2024 Immunizations Immunization Date Immunization Notes Care Provider Gulshan nunes 12-10-2020 hepatitis A vaccine, pediatric/adolescent dosage, 2 dose schedule Marli Rosenberg [facility] 12-10-2020 meningococcal polysaccharide (groups A, C, Y and W-135) diphtheria toxoid conjugate vaccine (MCV4P) Marli Rosenberg [facility] 09-01-2016 meningococcal ACWY vaccine, unspecified formulation Marli Rosenberg [facility] 09-01-2016 tetanus toxoid, redu matthieu diphtheria toxoid, and acellular pertussis vaccine, adsorbed Marli Rosenberg [facility] 12-10-2013 influenza virus vacc ine, unspecified formulation Marli Rosenberg [facility] 12-11-2008 influenza virus vacc ine, unspecified formulation Marli Rosenberg [facility] 05-01-2008 diphtheria, tetanus toxoids and acellular pertussis vaccine Marli Rosenberg [facility] [place] 05-01-2008 hepatitis B vaccine, adult dosage Marli Rosenberg [facility] 05-01-2008 measles, mumps and rubella virus vaccine Marli Rosenberg [facility] 05-01-2008 poliovirus vaccine, unspecified formulation Marli Rosenberg [facility] 05-01-2008 varicella virus vaccine Brittney Rosenberg [facility] 03-16-2005 diphtheria, tetanus toxoids and acellular pertussis vaccine Marli Rosenberg [facility] 03-16-2005 haemophilus influenz ae type b vaccine, HbOC conjugate Marli Rosenberg [facility] 03-16-2005 measles, mumps and rubella virus vaccine Marli Rosenberg [facility] 03-16-2005 pneumococcal conjuga te vaccine, 13 valent Marli Rosenberg [facility] 03-16-2005 varicella virus vaccine Brittney abshankar Rosenberg [facility] 2004 influenza virus vacc ine, unspecified formulation Marliannia Rosenberg [facility] 2004 diphtheria, tetanus toxoids and acellular pertussis vaccine Marli Chet [facility] 2004 haemophilus influenz ae type b vaccine, HbOC conjugate Marli Rosenberg [facility] 2004 hepatitis B vaccine, adult dosage Marli Rosenberg [facility] 2004 pneumococcal conjuga te vaccine, 13 valent Marli Rosenberg [facility] 2004 poliovirus vaccine, unspecified formulation Marli Rosenberg [facility] 2004 diphtheria, tetanus toxoids and acellular pertussis vaccine Marli Rosenberg [facility] 2004 haemophilus influenz ae type b vaccine, HbOC conjugate Marli Rosenberg [facility] 2004 hepatitis B vaccine, adult dosage Marli Chet [facility] 2004 pneumococcal conjuga te vaccine, 13 valent Marli Chet [facility] 2004 poliovirus vaccine, unspecified formulation Marli Rosenberg [facility] 2004 diphtheria, tetanus toxoids and acellular pertussis vaccine Marli Rosenberg [facility] 2004 haemophilus influenz ae type b vaccine, HbOC conjugate Marli Rosenberg [facility] 2004 hepatitis B vaccine, adult dosage Marli Rosenberg [facility] 2004 pneumococcal conjuga te vaccine, 13 valent Marli Rosenberg [facility] 2004 poliovirus vaccine, unspecified formulation Marli Rosenberg [facility] Payers Date Payer Category Payer Self-pay [id number] 2024 Medicaid [employer] [place] [id number] 2024-Present [address] [place] [address] [id number] 2024 Medicaid [id number] 2013 Private Health Insurance [id number] 2004 Unknown [id number]. 479 2004 Unknown [id number] [id number]. 593 2004 Unknown [id number] [id number]. 593 2004 Unknown [id number] 2.16.840.1.889489.3.579.2. 593 2004 Unknown [id number] [id number]. 1259 2004 Unknown [id number] 2.16.840.1.226925.3.579.2. 1259 2004 Unknown [id number] 2.16.840.1.946699.3.579.2. 1259 2004 Unknown [id number] 2.16.840.1.485459.3.579.2. 1259 2004 Unknown [id number] 2.16.840.1.462495.3.579.2. 1259 1984 Unknown [id number] 2.16.840.1.624003.3.579.2. 593 1959 Unknown [id number] [id number] 1959 Unknown [id number] [id number] 1959 Unknown [id number] [id number] Unknown [place] BC/BS [id number] Unknown [id number] Unknown [id number] [id number]. 531 Social History Date Type Detail Facility Start: 01-07-2022 End: 11-01-2023 Tobacco smoking status Never smoked tobacco (finding) [facility] [employer] Other Tobacco smoking status Never [facility] [place] Start: 11-01-2023 End: 07-23-2024 Sex Assigned At Female [facility] [employer] Other Start: 2004 Sex Assigned At Female F [facility] Start: 11-01-2023 Tobacco use and exposure Smokeless tobacco non-user [facility] Start: 07-23-2024 End: 12-30-2024 Alcoholic beverage intake Lifetime non-drinker (finding) [facility] Start: 11-01-2023 End: 07-23-2024 History of Social function [facility] Start: 11-01-2023 Alcohol Comment caffeine: pop/ tea once or twice a week [facility] Start: 07-23-2024 Gender identity Identifies as female gender (finding) [facility] Start: 08-22-2024 [facility] Clinical Notes 08-21-2013 to 12-30-2024 Reyna Leal, JACKI - 12/30/2024 2:10 PM Lisa Cody, JACKI - 11/26/2024 11:30 AM Elisa Bowling MA - 10/25/2024 10:30 AM Lisa Cody LPN - 07/23/2024 9:10 AM EDT Note Date & Type Note Facility 12-30-2024 History of Presen t illness Narrative Reason for Appointment: Patient ID: Shilpi Ware is a 19 y.o. female who presents for Routine Visit Patient presents today for Return OB appointment. MEDICATIONS No current outpatient medications ALLERGIES Allergies Allergen Reactions Coconut (Cocos Nucifera) GI intolerance Other Unknown METAL Latex Unknown and Rash PROBLEMS Active Ambulatory Problems Diagnosis Date Noted 15 weeks gestation of 11/26/2024 Resolved Ambulatory Problems Diagnosis Date Noted No Resolved Ambulatory Problems No Additional Past Medical History HISTORY PAST MEDICAL HISTORY SOCIAL HISTORY History reviewed. No pertinent past medical history. Social History Tobacco Use Smoking status: Never Smokeless tobacco: Never Substance Use Topics Alcohol use: Never Comment: caffeine: pop/tea once or twice a week Drug use: Never FAMILY HISTORY Family History Problem Relation Name Age of Onset Asthma Other Diabetes Other Hypertension Other Ovarian cysts Other Other (Decrease in bone density due to depo) Other SURGICAL HISTORY Past Surgical History: Procedure Laterality Date DENTAL SURGERY 2006 EYE SURGERY REVIEW OF SYSTEMS Review of Systems: Review of Systems All other systems reviewed and are negative. OBJECTIVE Objective: Physical Exam Constitutional: Appearance: Normal appearance. She is well-developed. Cardiovascular: Rate and Rhythm: Normal rate and regular rhythm. Pulmonary: Effort: Pulmonary effort is normal. Breath sounds: Normal breath sounds. Abdominal: General: Bowel sounds are normal. There is no distension. Palpations: Abdomen is soft. Tenderness: There is no abdominal tenderness. There is no guarding or rebound. Musculoskeletal: General: No swelling. Normal range of motion. Right lower leg: No edema. Left lower leg: No edema. Neurological: Mental Status: She is alert and oriented to person, place, and time. Skin: General: Skin is warm and dry. Psychiatric: Mood and Affect: Mood normal. Behavior: Behavior normal. Vitals and nursing note reviewed. Exam conducted with a terminal operator present. Vitals: Estimated body mass index is 21.63 kg/m as calculated from the following: Height as of 11/27/23: 5' 4 . Weight as of this encounter: 126 lb. BP: 100/66 Patient's last menstrual period was 07/15/2024 (approximate). ASSESSMENT & PLAN ICD-10-CM 1. Third trimester Z34.93 2. 20 weeks gestation of Z3A.20 Patient presents today for a routine obstetrics appointment. Patient is currently 20w4d with a Estimated Date of Delivery: 05/15/25. Patient complaints of light-headed and near syncope episodes with heart palpitations. Informed patient that order for ECHO and EKG will be sent to [facility] to be scheduled. Will also send orders for TSH to be drawn every 4 weeks throughout and CBC will also need to be drawn. Patients urine will be sent out for culture today with sample that was provided in office. Documented by Reyna Leal LPN on behalf of: Ho Espitia DO documented in this encounter [facility] 11-26-2024 History of Presen t illness Narrative Reason for Appointment: Patient ID: Shilpi Ware is a 19 y.o. female who presents for No chief complaint on file. Patient presents today for Return OB appointment. MEDICATIONS Current Outpatient Medications Medication Instructions triamcinolone (Kenalog) 0.1 % cream 1 Application, Every 12 hours ALLERGIES Allergies Allergen Reactions Coconut (Cocos Nucifera) GI intolerance Other Unknown METAL Latex Unknown and Rash PROBLEMS Active Ambulatory Problems Diagnosis Date Noted 15 weeks gestation of 11/26/2024 Resolved Ambulatory Problems Diagnosis Date Noted No Resolved Ambulatory Problems No Additional Past Medical History HISTORY PAST MEDICAL HISTORY SOCIAL HISTORY No past medical history on file. Social History Tobacco Use Smoking status: Never Smokeless tobacco: Never Substance Use Topics Alcohol use: Never Comment: caffeine: pop/tea once or twice a week Drug use: Never FAMILY HISTORY Family History Problem Relation Name Age of Onset Asthma Other Diabetes Other Hypertension Other Ovarian cysts Other Other (Decrease in bone density due to depo) Other SURGICAL HISTORY Past Surgical History: Procedure Laterality Date DENTAL SURGERY 2005 EYE SURGERY REVIEW OF SYSTEMS Review of Systems: Review of Systems Constitutional: Negative. HENT: Negative. Eyes: Negative. Respiratory: Negative. Cardiovascular: Negative. Gastrointestinal: Negative. Genitourinary: Negative. Musculoskeletal: Negative. Skin: Negative. Neurological: Negative. All other systems reviewed and are negative. Hematological: Negative. Endocrine: Negative. Allergic/Immunologic: Negative. OBJECTIVE Objective: Physical Exam Constitutional: Appearance: Normal appearance. She is well-developed. Cardiovascular: Rate and Rhythm: Normal rate and regular rhythm. Pulmonary: Effort: Pulmonary effort is normal. Breath sounds: Normal breath sounds. Abdominal: General: Bowel sounds are normal. There is no distension. Palpations: Abdomen is soft. Tenderness: There is no abdominal tenderness. There is no guarding or rebound. Musculoskeletal: General: No swelling. Normal range of motion. Right lower leg: No edema. Left lower leg: No edema. Neurological: Mental Status: She is alert and oriented to person, place, and time. Skin: General: Skin is warm and dry. Psychiatric: Mood and Affect: Mood normal. Behavior: Behavior normal. Vitals and nursing note reviewed. Exam conducted with a terminal operator present. Vitals: Estimated body mass index is 20.08 kg/m as calculated from the following: Height as of 11/27/23: 5' 4 . Weight as of 10/25/24: 117 lb. BP: Patient's last menstrual period was 07/15/2024 (approximate). ASSESSMENT & PLAN ICD-10-CM 1. 15 weeks gestation of Z3A.15 US OB 14+ weeks anatomy scan Alpha fetoprotein, maternal Alpha fetoprotein, maternal POCT urinalysis dipstick manually resulted 2. Screening, , for anatomic survey Z36.89 US OB 14+ weeks anatomy scan New OB: Patient presents today for 1st time obstetrics appointment with provider. Patient is currently Unknown . Patients history has been reviewed in great detail including any potential risks. Patient stated she currently has no complaints. Expectations throughout regarding labs, ultrasounds, and appointments have been discussed with the patient in detail. It was reiterated that the patient is to drink 6-8 glasses of water a day, eat 6 small meals a day, do not consume raw or undercooked meat, and stay away from [facility]. Patient has been consulted regarding any further do's and don'ts of . Patient voiced understanding and all questions and concerns were answered. Orders Placed This Encounter Procedures US OB 14+ weeks anatomy scan Alpha fetoprotein, maternal POCT urinalysis dipstick manually resulted Follow Up: Patient is to return in 4 weeks for routine OB appointment. Documented by Mary Cody LPN on behalf of: Ho Espitia DO documented in this encounter [facility] 10-25-2024 History of Presen t illness Narrative Reason for Appointment: Patient ID: Shilpi Ware is a 19 y.o. female who presents for Amenorrhea Patient presents today for a Nurse OB Intake appointment. Patient is Unknown with a Estimated Date of Delivery: None noted. OB History Para Term AB Living 2 0 0 0 0 0 SAB IAB Ectopic Multiple Live Births 0 0 0 0 0 # Outcome Date GA Lbr Ryne/2nd Weight Sex Type Anes PTL Lv 2 Current 1 Current Medications: has a current medication list which includes the following prescription(s): triamcinolone. Medical History: Active Ambulatory Problems Diagnosis Date Noted No Active Ambulatory Problems Resolved Ambulatory Problems Diagnosis Date Noted No Resolved Ambulatory Problems No Additional Past Medical History Family History Problem Relation Name Age of Onset Asthma Other Diabetes Other Hypertension Other Ovarian cysts Other Other (Decrease in bone density due to depo) Other Social History Tobacco Use Smoking status: Never Smokeless tobacco: Never Substance Use Topics Alcohol use: Never Comment: caffeine: pop/tea once or twice a week Drug use: Never Past Surgical History: Procedure Laterality Date DENTAL SURGERY 2006 EYE SURGERY Allergies Allergen Reactions Coconut (Cocos Nucifera) GI intolerance Other Unknown METAL Latex Unknown and Rash Vitals: Estimated body mass index is 20.08 kg/m as calculated from the following: Height as of 11/27/23: 5' 4 . Weight as of this encounter: 117 lb. BP: 102/68 Patient's last menstrual period was 07/15/2024 (approximate). Assessment/Plan Diagnoses and all orders for this visit: Missed menses - Type and screen; Future - ABO/Rh; Future - CBC and differential - Hemoglobin A1c - RPR - Rubella antibody, IgG - Hepatitis B surface antigen - Hepatitis C antibody - HIV-1 and HIV-2 antibodies - Urine culture - US OB transvaginal; Future - POCT , urine manually resulted - POCT urinalysis dipstick manually resulted , unspecified gestational age - Type and screen; Future - ABO/Rh; Future - CBC and differential - Hemoglobin A1c - RPR - Rubella antibody, IgG - Hepatitis B surface antigen - Hepatitis C antibody - HIV-1 and HIV-2 antibodies - Rapid drug screen, urine; Future Encounter for supervision of normal first in first trimester - Rapid drug screen, urine; Future 11 weeks gestation of Nurse Note: .crf Follow Up: Patient is to have labs drawn at directed and return to office for initial OB appointment with provider. Patient may call office as needed with any concerns or questions. Nurse Visit Completed by: Fidelia Bowling MA documented in this encounter [facility] 07-23-2024 History of Presen t illness Narrative Reason for Appointment: Patient ID: Shilpi Ware is a 19 y.o. female who presents for Infertility Patient presents today for Acute Visit. MEDICATIONS Current Outpatient Medications Medication Instructions triamcinolone (Kenalog) 0.1 % cream 1 Application, Every 12 hours ALLERGIES Allergies Allergen Reactions Coconut (Cocos Nucifera) GI intolerance Other Unknown METAL Latex Unknown and Rash PROBLEMS Active Ambulatory Problems Diagnosis Date Noted No Active Ambulatory Problems Resolved Ambulatory Problems Diagnosis Date Noted No Resolved Ambulatory Problems No Additional Past Medical History HISTORY PAST MEDICAL HISTORY SOCIAL HISTORY No past medical history on file. Social History Tobacco Use Smoking status: Never Smokeless tobacco: Never Substance Use Topics Alcohol use: Never Comment: caffeine: pop/tea once or twice a week Drug use: Never FAMILY HISTORY Family History Problem Relation Name Age of Onset Asthma Other Diabetes Other Hypertension Other Ovarian cysts Other Other (Decrease in bone density due to depo) Other SURGICAL HISTORY Past Surgical History: Procedure Laterality Date DENTAL SURGERY 2006 EYE SURGERY REVIEW OF SYSTEMS Review of Systems: Review of Systems Constitutional: Negative. HENT: Negative. Eyes: Negative. Respiratory: Negative. Cardiovascular: Negative. Gastrointestinal: Negative. Genitourinary: Negative. Musculoskeletal: Negative. Skin: Negative. Neurological: Negative. All other systems reviewed and are negative. Hematological: Negative. Endocrine: Negative. Allergic/Immunologic: Negative. OBJECTIVE Objective: Physical Exam Constitutional: Appearance: Normal appearance. She is well-developed. Cardiovascular: Rate and Rhythm: Normal rate and regular rhythm. Pulmonary: Effort: Pulmonary effort is normal. Breath sounds: Normal breath sounds. Abdominal: General: Bowel sounds are normal. There is no distension. Palpations: Abdomen is soft. Tenderness: There is no abdominal tenderness. There is no guarding or rebound. Musculoskeletal: General: No swelling. Normal range of motion. Right lower leg: No edema. Left lower leg: No edema. Neurological: Mental Status: She is alert and oriented to person, place, and time. Skin: General: Skin is warm and dry. Psychiatric: Mood and Affect: Mood normal. Behavior: Behavior normal. Vitals and nursing note reviewed. Exam conducted with a terminal operator present. Vitals: Estimated body mass index is 20.08 kg/m as calculated from the following: Height as of 11/27/23: 5' 4 . Weight as of this encounter: 117 lb. BP: 104/68 Patient's last menstrual period was 07/15/2024 (approximate). ASSESSMENT & PLAN ICD-10-CM 1. Encounter for infertility Z31.9 Pt presents to discuss fertility. Pt was and miscarried in May. Discussed - pt having normal periods, pt given labs and ultrasound to have obtained. Pt has family member that is unable to carry a . When pt is will call and will order progesterone suppositories and quant level. Documented by Mary Cody LPN on behalf of: Ho Espitia DO documented in this encounter [facility] 01-11-2023 Evaluation note Encounter Date Diagnosis Assessment Notes Dec, Acute effusion of left ear (ICD-10 - H65.192) try this medication and referral sent to ENT since conservative treatment has been used by urgent care and PCP without improvement of symptoms. [facility] Other 01-24-2023 Evaluation note* Encounter Date Diagnosis [...] understanding and is agreeable to treatment plan [facility] Other 08-15-2022 Evaluation note* Encounter Date Diagnosis Assessment Notes Treatment Notes Treatment Clinical Notes Jun, Tooth infection (ICD-10 - K04.7) Take medications as directed.Highly encourage patient to contact dentist CARLY for further treatment of infection. Ok to take OTC medications like ibuprofen with prescriptions [facility] Other 06-16-2022 Chana Ware is here for consultation at the request of Iker Olivas MD for: Constipation ---History from parent and patient History of Present Illness My advice was requested by Iker Olivas MD. She is accompanied by her mother and sibling(s). No fire inspector was used. ABD pain - Patient has [...] 40mg per day Mirala (more content not included)...[id number] Hospital Discharge instructions Follow Up Care 03/02/2022 15:03:01 With:BRENDON DENTON, Iker Eddy, PED Address: [address] [place] [address]. [place] [address]- When:03/30/2022 Comments:recheck dyspnea/chest pain [place] 04-13-2022 Hospital Discharge instructions Follow Up Care 03/02/2022 09:25:52 With:BRENDON DENTON, Iker Eddy, PED Address: [address] [place] [address]- When:03/16/2022 Comments:recheck SOB [facility] 04-08-2022 Evaluation note* Encounter Date Diagnosis Assessment [...] 3 days. Feb, Bronchitis (ICD-10 - J40) [facility] Other 04-05-2022 Hospital Discharge instructions Follow Up Care 02/22/2022 08:51:47 With:Marli Rosenberg MD Address: When: Unknown Comments:f/up in 2 months for recheck anxiety [place] 02-21-2022 Evaluation note* Encounter Date Diagnosis Assessment [...] we will help you get into specialist. [facility] Other 12-15-2021 Evaluation note* Encounter Date Diagnosis Assessment Notes Treatment Notes Treatment Clinical Notes Oct, Sore throat (ICD-10 - J02.9) Oct, Viral pharyngitis (ICD-10 - J02.9) Drink plenty of fluids, get plenty of rest. Tylenol or Motrin for aches pains or fevers. Follow-up with family physician if no improvement in 2 to 3 days for [facility] Other 10-02-2013 History general Narrative - Reported* Type Description Date Medical History eczema Medical History reactive airway Medical History Radial fracture (resolved 2012) Medical History Strep throat (resolved 1) Surgical History dental reconstruction age 1 [facility] Other 10-02-2013 History general Narrative - Reported* Type Description Date Medical History eczema Medical History reactive airway Medical History Radial fracture (resolved 2012) Medical History Strep throat (resolved 1) Surgical History dental reconstruction age 1 Surgical History Cyst Removal Left eye 08/2022 [facility] Other Evaluation + Plan note Referrals to Other Providers Referred by: Chet DENTON, Marli ENRIQUE [facility] Evaluation + Plan note Future Appointments Appointment Date:03/16/2022 02:00:00 PM Scheduled Provider:Iker OLIVAS MD Location:[facility] Appointment Type:Peds OV 10 Referrals to Other Providers Referred by: Iker OLIVAS MD [facility] Evaluation + Plan note Future Appointments Appointment Date:03/30/2022 08:40:00 AM Scheduled Provider:Iker OLIVAS MD Location:[facility] Appointment Type:Peds OV 10 [facility] evaluation noteNo assessment information available [facility] Work Phone: evaluation note* Diagnosis Onset Date Resolution Status Acute UTI (urinary tract infection) acute [facility] Work Phone: Evaluation note* Diagnosis Encounter for infertility PCOS (polycystic ovarian syndrome) Polycystic ovaries [facility] Diagnosis Missed menses , unspecified gestational age Encounter for supervision of normal first in first trimester 11 weeks gestation of documented [facility]* Diagnosis 15 weeks gestation of Screening, , for anatomic survey Encounter for anatomic survey documented [facility]* Diagnosis Third trimester state, incidental 20 weeks gestation of Near syncope UTI symptoms Lightheadedness Dizziness and giddiness Other headache syndrome [facility] Narrative No data available for this section [facility] Reason for Referral Reason *FU 02/02 Middle e ar effusion that is persisting Diagnosis 1 Acute effusion of le ft ear (H65.192) Referral Organization [facility] Family Medicin e Michael Referring Provider First Name Lynette Referring Provider Last Name Conrado Referring Provider Specialty Nurse Pract itioner Referred Organization [facility] Referred Provider Fiordaliza Akers Referred Address ,[place], [place],[address] Referred Provider Specialty Ear, Nose an d Throat Referral Priority Routine General Notes [facility] 023 07:30:08 AM >Received today and waiting for office notes to be locked before sending referral. Will not be sending insurance card with referral since there was no updated card in chart [facility]12[facility] 01:30:59 PM >Dr. Akers request us to fax or send the referral P2P and they will call and schedule patient. I fax and sent P2P. They feel if the patient is not in their system then they will not create the referral so to be safe I fax as well. Referral was sent P2P and Fax [facility] 01/19/2023 09:28:43 AM >Fax letter for appt update [facility] 01/26/2023 09:19:01 AM >Fax 2nd request letter [...] FOR VISIT (unrecogniz ed section and content) Reason Comments Infertility Reason Comments Amenorrhea Reason Comments Routine Visit Care Teams (unrecognized sec tion and content) [...] section and content) DATE CREATED AUTHOR 03/02/2023 [facility] DATE CREATED AUTHOR AUTHOR'S ORGANIZ ATION 03/25/2023 [facility] DATE CREATED AUTHOR AUTHOR'S ORGANIZ ATION 12/30/2023 [facility] DATE CREATED AUTHOR AUTHOR'S ORGANIZ ATION 01/03/2025 [facility] DATE CREATED AUTHOR AUTHOR'S ORGANIZ ATION 01/10/2025 [facility] FOR RECORDS PERTAINING TO PATIENTS [...] BE BASED ON THE PRIMARY CLINICAL RECORDS. [employer] [facility]. provides no warranty or guarantee of the accuracy or completeness of information in this document.
[2025-01-16 14:19] LABS: Basophils Percent Auto 0.3 % (0.2-2.0); Eosinophils Percent Auto 0.3 % (0.9-7.0); Hematocrit 34.9 % (36.0-48.0); Hemoglobin 11.9 g/dL (12.0-16.0); Immature Granulocytes Abs Auto 0.07 10^3/uL (0.00-0.03); Immature Granulocytes Pct Auto 0.6 % (0.0-0.5); Lymphocytes Absolute Auto 1.5 10^3/uL (1.2-3.8); Lymphocytes Percent Auto 12.8 % (20.5-60.0); Mean Corpuscular HGB Conc 34.1 g/dL (29.9-35.2); Mean Corpuscular Hemoglobin 28.6 pg (26.7-34.0); Mean Corpuscular Volume 83.9 fL (81.0-99.0); Mean Platelet Volume 9.1 fL (9.5-13.5); Monocytes Absolute Auto 0.7 10^3/uL (0.3-0.8); Monocytes Percent Auto 5.8 % (1.7-12.0); Neutrophils Absolute Auto 9.6 10^3/uL (1.4-6.5); Neutrophils Percent Auto 80.2 % (43.0-75.0); Platelet Count 316 10^3/uL (150-450); Red Blood Count 4.16 10^6/uL (4.20-5.40)
[2025-01-16 14:26] LABS: Thyroid Stimulating Hormone 2.105 uIU/mL (0.358-3.740)
== END 2025-01-16 13:43 | disposition home or self-care (01) ==
LOC: LAB 13:47
PROVIDERS: PCP Nurse Practitioner Family; Visit Provider Obstetrics & Gynecology
DX: R55 Syncope and collapse (principal); R42 Dizziness and giddiness
CPT/HCPCS: 36415; 84443; 85025

== ENCOUNTER 2025-01-30 10:02 | Outpatient (OUT) | payer OTHER, SELFPAY ==
--- NOTE | 2025-01-30 10:00 | CA_ITS ---
Patient Name: YIN MILLARD MR#: [id number] : 2005 Exam Date: 01/30/2025 Ordering Doctor: DR HO YORK . ECHOCARDIOGRAM REPORT PROCEDURE: CA ECHO DOPPLER COMPLETE INDICATIONS: Near syncope episodes, 24 weeks COMPARISON: None. DESCRIPTION: COMPLETE ECHOCARDIOGRAM Real-time transthoracic echocardiography with 2D, M-mode, spectral and color flow Doppler performed. QUALITY: Technical quality was good. LEFT VENTRICLE: Normal chamber size. Normal left ventricular wall thickness. Normal systolic function. LV EF: Normal left ventricular ejection fraction, (55-60%). DIASTOLIC: Normal diastolic function. ATRIAL SEPTUM: Visually appears intact. LEFT ATRIUM: Normal chamber size. RIGHT ATRIUM: Normal chamber size. RIGHT VENTRICLE: Normal chamber size. Normal right ventricular systolic function. TRICUSPID VALVE: Normal mobility and thickness. No stenosis with trivial regurgitation. Unable to assess right-sided pressures due to lack of measurable tricuspid regurgitation. MITRAL VALVE: Normal mobility and thickness. No evidence of mitral valve stenosis. There is no mitral annular calcification. No mitral regurgitation. AORTIC VALVE: Normal trileaflet appearance. No visible sclerosis. Normal leaflet mobility. No evidence of aortic valve stenosis. No aortic regurgitation. AORTIC ROOT: Normal diameter and appearance. PULMONIC VALVE: Normal thickness and mobility. No stenosis. Trivial regurgitation. PERICARDIUM: No evidence of pericardial effusion. IVC: Collapses with inspirations. PLEURA: CONCLUSION: 1. Normal ventricular size and function. 2. No significant valvular dysfunction. 3. Unable to assess right-sided pressures due to lack of measurable tricuspid regurgitation. 4. No pericardial effusion. Adult Echocardiography Procedure Report Left Ventricle LVEDD (3.7 - 5.6 cm): 4.12 cm LVESD (2.2 - 4.0 cm): 2.76 cm LVIVS thickness (0.6 - 1.2 cm): 0.58 cm LVPW thickness (0.5 - 1.0 cm): 0.66 cm e': 0.25 m/s E - e': 3.69 LVOT Max Gradient: 2.14 mm[Hg] LVOT Area (cm2): 0.73 m/s Peak Velocity (LVOT): 0.73 m/s Mean Velocity (LVOT): 0.50 m/s LVOT Diameter 2.25 cm Left Atrium LA Volume Index (2D A2C): 32.01 ml/m2 Left Atrium Systolic Dimension: 2.54 cm Mitral Valve MV E to A Ratio: 2.57 Mitral Valve A-Wave Peak Velocity: 0.36 m/s Mitral Valve E-Wave Peak Velocity: 0.93 m/s Right Ventricle Aorta AO Root Diam: 2.81 cm Aortic Valve AoV Area (Peak Ronaldo): 3.19 cm2, 3.19 cm2 AoV Area (VTI): 3.76 cm2, 3.76 cm2 Peak Velocity(Antegrade Flow): 0.91 m/s Peak Gradient(Antegrade Flow): 3.33 mm[Hg] Mean Velocity(Antegrade Flow): 0.57 m/s Mean Gradient(Antegrade Flow): 1.56 mm[Hg] Velocity Time Integral: 17.65 cm Tricuspid Valve Pulmonic Valve Mean Gradient: 1.90 mm[Hg] Mean Velocity: 0.65 m/s Peak Velocity: 0.97 m/s, 0.82 m/s Peak Gradient: 2.66 mm[Hg], 3.75 mm[Hg] Right Atrium Right Atrium Systolic Pressure: 28.55 ml, 28.55 ml Dictated by: David Torres M.D. on 01/30/2025 at 20:08 Approved by: David Torres M.D. on 01/30/2025 at 20:11
--- OUTSIDE RECORDS SUMMARY | 2025-01-30 10:22 | XMS_ITS | CCD ---
Author Organization [facility] Care Team Providers Care Invoice Clerk Name Role Phone Iker OLIVAS Primary Care Physician Maddie Dickson Unavailable Lynette Flores Unavailable MD Iker Olivas Primary Care Provider [phone] MD Kole Baron Attending Provider Lanny Nieves [...] SANTANA Consulting Unavailable TRINITY Almendarez Attending Provider [phone] Unavailable Primary Care Provider UnavailIsabella Christensen Attending Unavailable Isabella Almendarez Admitting Unavailable NON STAFF Primary Care Unavailable HO ESPITIA Referring Unavailable HO ESPITIA Attending Unavailable HO ESPITIA Attending Unavailable HO ESPITIA Attending Unavailable HO ESPITIA Attending Unavailable Allergies Allergy Classification Reported Allergen(s) Allergy Type Date of Onset Reaction(s) Facility (20 sources) Latex; Translations: [LATEX] Drug allergy 9 Eruption of skin (disorder), Unknown, Rash [facility] (3 sources) contact metals 1 Drug allergy Eruption of skin (disorder) [facility] Comment on above: family states pt dev elops rash to alumininum in deoderant, fake jewelry (possibly kp?), etc (3 sources) Coconut extract; Translations: [coconut] Drug Allergy 2 Nausea [facility] (1 source) Iron; Translations: [IRON] Drug Allergy 2 [facility] (2 sources) contact metal agent Drug allergy (disorder) 4 Rash [facility] (1 source) contact metals; Translations: [contact metals] Propensity to adverse reactions (disorder) [facility]ository (17 sources) Coconut extract Drug Allergy 4 GI intolerance [facility] (18 sources) Other Propensity to adverse reactions 9 Unknown [facility] (1 source) contact metal agent Drug allergy (disorder) 4 [facility] Repository Medications Current Medications Medication Drug [...] day(s), # 28 tab(s), Refills(s) 0, Pharmacy: [facility]/pharmacy #[id number], 161, cm, 03/16/22 14:08:00 EDT, Height/Length Dosing, 55.9, kg, 03/16/22 14:08:00 EDT, Weight Dosing Start Date: 03/16/22 Stop Date: 03/30/22 Status: Ordered cephalexin 500 mg oral capsule (2 sources) Cephalosporin Antibacterial Start: 04-18-2024 take 500 mg by mouth three times daily Cephalexin Active 500 MG PO Three times daily 09 06April 18, 2024 12:00am Start: 02-25-2022 take [address] [facility] every eight hours Cephalexin 500 MG 1 capsule Orally tid for 10 day(s) Feb, Active cetirizine hydrochloride 10 mg oral tablet (4 sources) Histamine-1 Receptor Antagonist Start: 01-11-2023 take 1 tablet by mouth every twenty-four hours Cetirizine HCl 10 MG 1 tablet Orally Once a day for 30 day(s) Dec, Active Start: 03-02-2022 [facility] cetirizine 10 mg Tab 10 mg = 1 tab(s), Oral, Daily, PRN for allergy symptoms, # 30 tab(s), Refills(s) 0, Pharmacy: [facility]/pharmacy #[id number], 164, cm, 03/02/22 14:37:00 EDT, Height/Length [...] Active magnesium oxide 400 mg oral tablet (7 sources) Start: 12-30-2024 End: 01-29-2025 take 1 tablet by mouth once daily magnesium oxide (Mag-Ox) 400 MG tablet Indications: Other headache syndrome Take 1 tablet (400 mg) by mouth Daily 30 tablet 6 12/30/2024 01/23/2025 Discontinued methylPREDNISolone 4 mg oral tablet (1 source) Corticosteroid Start: 02-25-2022 Medrol 4 MG as directed Orally as directed for 6 days Feb, Active montelukast 10 mg oral tablet (3 sources) Leukotriene Receptor Antagonist Start: 02-22-2022 take 1 tablet by mouth once daily in the evening montelukast 10 mg Tab 10 mg = 1 tab(s), Oral, qPM, # 30 tab(s), Refills(s) 0, Pharmacy: [facility]/pharmacy #[id number], 165.5, cm, 02/22/22 13:27:00 EDT, Height/Length [...] 01-29-2019 12-10-2020 Episodic Contraceptive and procreative management (6 sources) Patient encounter status; Translations: [Encounter for [...] 03-02-2022 Episodic Other and delivery including normal (6 sources) ; Translations: [Encounter for supervision of [...] of ] 10-25-2024 Episodic Residual codes; unclassified (11 sources) Gestation period, 15 weeks; Translations: [15 weeks gestation of ] Onset: 11-26-2024 11-26-2024 Episodic Residual codes; unclassified (9 sources) Gestation period, 20 weeks; Translations: [20 weeks gestation of ] Onset: 12-30-2024 12-30-2024 Episodic Residual codes; unclassified (2 sources) Gestation period, 24 weeks; Translations: [24 weeks gestation of ] 01-23-2025 Episodic Superficial injury; contusion (3 sources) Contusion of elbow 01-07-2022 Episodic Syncope (14 sources) Syncope; Translations: [Near syncope] Onset: 01-29-2019 [...] Test Name Value Interpretation Reference Range Facility Urinalysis macro (dipstick) panel (U)on 01-23-2025 Bilirubin, UA Negative Negative - 4(70) +++ mg/dL [facility] Blood, UA Positive Negative - 50 Rambo/mcL [facility] Comment on above: trace-intact Clarity, UA Clear [facility] re Color, UA Yellow [facility] e Glucose, UA Negative Negative - 1999(110) ++++ mg/dL [facility] Interpretation and review of laboratory results Abnormal [facility] re Ketones, UA Negative Negative - 160(16) ++++ mg/dL [facility] Leukocytes, UA Trace Negative - 500+++ Charity/mcL [facility] Nitrite, UA Negative Negative - Positive [facility] pH, UA 6 5 - 9 [facility] e Protein, UA Negative Negative - 1999(20) ++++ mg/dL [facility] Spec Grav, UA 1.025 1 - 1.03 [facility] Urobilinogen, UA 0.2 0.2 - 12 mg/dL [facility] e ALL CBC WITH AUTO DIFFon BASOPHILS ABSOLUTE AUTO 0 [facility] Basophils/100 WBC (Bld) 0.3 % 0.2 - 2.0 % [facility] Eosinophils/100 WBC (Bld) 0.3 % Low 0.9 - 7.0 % [facility] Erythrocyte distribution width (RBC) [Ratio] 13 % 11.0 - 15.0 % [facility] Hematocrit (Bld) [Volume fraction] 34.9 % Low 36.0 - 48.0 % [facility] e Hemoglobin (Bld) [Mass/Vol] 11.9 g/dL Low 12.0 - 16.0 g/dL [facility] IMMATURE GRANULOCYTES ABS AUTO 0.07 High [facility] Immature granulocytes/100 WBC (Bld) 0.6 % High 0.0 - 0.5 % [facility] Interpretation and review of laboratory results Abnormal [facility] LYMPHOCYTES ABSOLUTE AUTO 1.5 [facility] Lymphocytes/100 WBC (Bld) 12.8 % Low 20.5 - 60.0 % [facility] MCH (RBC) [Entitic mass] 28.6 pg 26.7 - 34.0 pg [facility] MCHC (RBC) [Mass/Vol] 34.1 g/dL 29.9 - 35.2 g/dL [facility] MCV (RBC) [Entitic vol] 83.9 fL 81.0 - 99.0 fL [facility] MONOCYTES ABSOLUTE AUTO 0.7 [facility] Monocytes/100 WBC (Bld) 5.8 % 1.7 - 12.0 % [facility] NEUTROPHILS ABSOLUTE AUTO 9.6 High [facility] Neutrophils/100 WBC (Bld) 80.2 % High 43.0 - 75.0 % [facility] Platelet mean volume (Bld) [Entitic vol] 9.1 fL Low 9.5 - 13.5 fL [facility] TBH EO # 0 [facility] TBH PLT 316 [facility] TB RBC 4.16 Low [facility] TB WBC 12 High [facility] e [facility] No Panel Informationon 01-01 STAPHYLOCOCCUS EPIDERMIDIS, HAEMOLYTICUS, LUGDUNENSIS, SAPROPHYTICUS (URINA 0 [facility] STAPHYLOCOCCUS EPIDERMIDIS, HAEMOLYTICUS, LUGDUNENSIS, SAPROPHYTICUS (URINA Not detected [facility] URINARY TRACT INFECTION (HTR X)on 01-01-2025 ACINETOBACTER BAUMANII 0 [facility] ACINETOBACTER BAUMANII Not detected [facility] TYLER ALBICANS, PARAPSILOSIS, TROPICALIS 0 [facility] TYLER ALBICANS, PARAPSILOSIS, TROPICALIS Not detected [facility] TYLER GLABRATA 0 [facility] TYLER GLABRATA Not detected [facility] TYLER KRUSEI 0 [facility] TYLER KRUSEI Not detected [facility] CITROBACTER FREUNDII 0 [facility] CITROBACTER FREUNDII Not detected [facility] ENTEROBACTER AEROGENES, CLOACAE 0 [facility] ENTEROBACTER AEROGENES, CLOACAE Not detected [facility] ENTEROCOCCUS FAECALIS, FAECIUM 0 [facility] ENTEROCOCCUS FAECALIS, FAECIUM Not detected [facility] ESCHERICHIA COLI 0 [facility] ESCHERICHIA COLI Not detected [facility] KLEBSIELLA PNEUMONIAE, OXYTOCA 0 [facility] KLEBSIELLA PNEUMONIAE, OXYTOCA Not detected [facility] MORGANELLA MORGANII 0 [facility] MORGANELLA MORGANII Not detected [facility] PROTEUS MIRABILIS, VULGARIS 0 [facility] PROTEUS MIRABILIS, VULGARIS Not detected [facility] PSEUDOMONAS AERUGINOSA 0 [facility] PSEUDOMONAS AERUGINOSA Not detected [facility] [...] II, MD, PHD at 01-Jan-2025 08:23:57 AM [facility] Normal Not Available Comment on above: Order Comment: US OB ANATOMY SINGLE W US OB CERVICAL LENGTH Estimated Date of Delivery: None noted. Gestational Age as of 11/26/2024: Unknown Urinalysis macro (dipstick) panel (U)on 11-26-2024 Bilirubin, UA Negative Negative - 4(70) +++ mg/dL [facility] Blood, UA Negative Negative - 50 Rambo/mcL [facility] Clarity, UA Clear [facility] Color, UA Yellow [facility] Glucose, UA Negative Negative - 1999(110) ++++ mg/dL [facility] Interpretation and review of laboratory results Normal [facility] Ketones, UA Negative Negative - 160(16) ++++ mg/dL [facility] Leukocytes, UA Negative Negative - 500+++ Charity/mcL [facility] Nitrite, UA Negative Negative - Positive [facility] pH, UA 6 5 - 9 [facility] Protein, UA Negative Negative - 1999(20) ++++ mg/dL [facility] Spec Grav, UA 1.025 1 - 1.03 [facility] Urobilinogen, UA 0.2 0.2 - 12 mg/dL [facility] e ALL CBC WITH AUTO DIFFon BASOPHILS ABSOLUTE AUTO 0 [facility] Basophils/100 WBC (Bld) 0.2 % 0.2 - 2.0 % [facility] Eosinophils/100 WBC (Bld) 0.2 % Low 0.9 - 7.0 % [facility] Erythrocyte distribution width (RBC) [Ratio] 13.5 % 11.0 - 15.0 % [facility] Hematocrit (Bld) [Volume fraction] 36.7 % 36.0 - 48.0 % [facility] e Hemoglobin (Bld) [Mass/Vol] 12.5 g/dL 12.0 - 16.0 g/dL [facility] IMMATURE GRANULOCYTES ABS AUTO 0.04 High [facility] Immature granulocytes/100 WBC (Bld) 0.3 % 0.0 - 0.5 % [facility] Interpretation and review of laboratory results Abnormal [facility] re LYMPHOCYTES ABSOLUTE AUTO 1.7 [facility] Lymphocytes/100 WBC (Bld) 14 % Low 20.5 - 60.0 % [facility] MCH (RBC) [Entitic mass] 27.9 pg 26.7 - 34.0 pg [facility] MCHC (RBC) [Mass/Vol] 34.1 g/dL 29.9 - 35.2 g/dL [facility] MCV (RBC) [Entitic vol] 81.9 fL 81.0 - 99.0 fL [facility] MONOCYTES ABSOLUTE AUTO 0.7 [facility] Monocytes/100 WBC (Bld) 5.6 % 1.7 - 12.0 % [facility] NEUTROPHILS ABSOLUTE AUTO 9.7 High [facility] Neutrophils/100 WBC (Bld) 79.7 % High 43.0 - 75.0 % [facility] Platelet mean volume (Bld) [Entitic vol] 9.2 fL Low 9.5 - 13.5 fL [facility] TBH EO # 0 [facility] PLT 314 [facility] TBH RBC 4.48 [facility] TBH WBC 12.2 High [facility] HCG ( test) Ql (U)o n 10-25-2024 Preg Test, Ur Positive Negative [facility] Urinalysis macro (dipstick) panel (U)on 10-25-2024 Bilirubin, UA Negative Negative - 4(70) +++ mg/dL [facility] Blood, UA Negative Negative - 50 Rambo/mcL [facility] Clarity, UA Clear [facility] re Color, UA Yellow [facility] [employer] e Glucose, UA Negative Negative - 1999(110) ++++ mg/dL [facility] Interpretation and review of laboratory results Normal [facility] re Ketones, UA Negative Negative - 160(16) ++++ mg/dL [facility] Leukocytes, UA Negative Negative - 500+++ Charity/mcL [facility] Nitrite, UA Negative Negative - Positive [facility] pH, UA 6 5 - 9 [facility] Protein, UA Negative Negative - 1999(20) ++++ mg/dL [facility] Spec Grav, UA 1.025 1 - 1.03 [facility] Urobilinogen, UA 0.2 0.2 - 12 mg/dL [facility] [employer] e TBH PREG QUANT HCGon 09-14-2 024 HCG QUANTITATIVE 8309 mIU/mL [facility]thcare Comment on above: 5-50 0.2-1 WEEK 50-500 1-2 WEEKS 100-5,000 2-3 WEEKS 500-10,000 3-4 WEEKS 1,000-50,000 4-5 WEEKS 10,000-100,000 5-6 WEEKS 15,000-200,000 6-8 WEEKS 10,000-100,000 2-3 MONTHS [facility] [employer] e TBH PREG QUANT HCGon 09-12-2 024 HCG QUANTITATIVE 3351 mIU/mL [facility] Comment on above: 5-50 0.2-1 WEEK 50-500 1-2 WEEKS 100-5,000 2-3 WEEKS 500-10,000 3-4 WEEKS 1,000-50,000 4-5 WEEKS 10,000-100,000 5-6 WEEKS 15,000-200,000 6-8 WEEKS 10,000-100,000 2-3 [facility]THS [facility] [employer] e ALL CBC WITH AUTO DIFFon BASOPHILS ABSOLUTE AUTO 0.0 [facility] Basophils/100 WBC (Bld) 0.3 % 0.2 - 2.0 % [facility] Eosinophils/100 WBC (Bld) 0.8 % Low 0.9 - 7.0 % [facility] Erythrocyte distribution width (RBC) [Ratio] 13.0 % 11.0 - 15.0 % [facility] Hematocrit (Bld) [Volume fraction] 37.4 % 36.0 - 48.0 % [facility] Hemoglobin (Bld) [Mass/Vol] 12.1 g/dL 12.0 - 16.0 g/dL [facility] IMMATURE GRANULOCYTES ABS AUTO 0.02 [facility] Immature granulocytes/100 WBC (Bld) 0.3 % 0.0 - 0.5 % [facility] Interpretation and review of laboratory results Abnormal [facility] LYMPHOCYTES ABSOLUTE AUTO 1.5 [facility] Lymphocytes/100 WBC (Bld) 24.5 % 20.5 - 60.0 % [facility] MCH (RBC) [Entitic mass] 26.5 pg Low 26.7 - 34.0 pg [facility] MCHC (RBC) [Mass/Vol] 32.4 g/dL 29.9 - 35.2 g/dL [facility] MCV (RBC) [Entitic vol] 81.8 fL 81.0 - 99.0 fL [facility] MONOCYTES ABSOLUTE AUTO 0.3 [facility] Monocytes/100 WBC (Bld) 4.5 % 1.7 - 12.0 % [facility] NEUTROPHILS ABSOLUTE AUTO 4.1 [facility] Neutrophils/100 WBC (Bld) 69.6 % 43.0 - 75.0 % [facility] Platelet mean volume (Bld) [Entitic vol] 9.5 fL 9.5 - 13.5 fL [facility] TBH EO # 0.1 [facility] TBH PLT 318 [facility] RBC 4.57 [facility] TBH WBC 6.0 [facility] Urine Cultureon 04-18-2024 Bacteria identified Cx Nom (U) 50,000 colonies/ml mixed bacterial skin contaminants 2 Days PERFORMED BY: [facility] [place] [address] PATHOLOGIST [employer] BILLING ANALYST MADAN TRIVEDI M.D. Normal [facility] Comment on above: Performed By: #### C UU #### [facility] [address] Physician Referralon 024 Physician Referral [id number] Normal [facility] ER URINE PROFILEon 3 Bilirubin Ql (U) Negative Normal NEGATIVE [facility] Comment on above: Performed By: #### E RUR, PREGU #### [facility] [address] [place] [address] Dr. Mikala Ramsay Clarity (U) CLEAR Normal CLEAR [facility] Comment on above: Performed By: #### E RUR, PREGU #### [facility] [address] [place] [address] Dr. Mikala Ramsay Color (U) LT. YELLOW Normal YELLOW [facility] Comment on above: Performed By: #### E RUR, PREGU #### [facility] [address] [place] [address] Dr. Mikala SPRAGUE A micrscopic examination will be performed if indicated. Normal [facility] Comment on above: Performed By: #### E RUR, PREGU #### [facility] [address] [place] [address] Dr. Mikala Ramsya Glucose Ql (U) Negative Normal NEGATIVE [facility] Comment on above: Performed By: #### E RUR, PREGU #### [facility] [address] [address] [address] Mikala Ramsay Hemoglobin Ql (U) Negative Normal NEGATIVE [facility] Comment on above: Performed By: #### E RUR, PREGU #### [facility] [address] [place] [address] Dr. Mikala Ramsay Ketones Ql (U) Negative Normal NEGATIVE [facility] Comment on above: Performed By: #### E RUR, PREGU #### [facility] [address] [place] [address] Dr. Mikala Ramsay LEUKOCYTES Negative Normal NEGATIVE [facility] Comment on above: Performed By: #### E RUR, PREGU #### [facility] [address] [place] [address] Dr. Mikala Ramsay Nitrite Ql (U) Negative Normal NEGATIVE [facility] Comment on above: Performed By: #### E RUR, PREGU #### [facility] [address] [place] [address] Dr. Mikala Ramsay pH (U) 8.0 [pH] Normal 5-9 [facility] Comment on above: Performed By: #### E RUR, PREGU #### [facility] [address] [place] [address] Dr. Mikala Ramsay SPEC GRAVITY 1.015 Normal 1.005-<=1.025 [facility] Comment on above: Performed By: #### E RUR, PREGU #### [facility] [address] [place] [address] Dr. Mikala Ramsay UA PROTEIN Negative Normal NEGATIVE/ TRACE [facility] Comment on above: Performed By: #### Kevon RUR, PREGU #### [facility] [address] [place] [address] Dr. Mikala Ramsay UR MICRO IND NOT INDICATED Normal [facility] Comment on above: Performed By: #### E RUR, PREGU #### [facility] [address] [place] [address] Dr. Mikala Ramsay Urobilinogen Qn (U) 0.2 {Jose'U}/dL Normal 0.2 - 1. 0 [facility] Comment on above: Performed By: #### E RUR, PREGU #### [facility] [address] [place] [address] Dr. Mikala Ramsay URon 11-25-2022 , QUAL Negative Normal NEGATIVE [facility] Comment on above: Performed By: #### E RUR, PREGU #### [facility] [address] [place] [address] Dr. Mikala Ramsay US PELVIS TRANSVAGon 023 [...] JONI MORALES Date: 2022-11-25 17:05 Normal [facility] XR KUB 1 VIEWon 11-25-2022 XR [...] DOMO AN Date: 2022-11-25 14:56 Normal [facility] CBC AUTO DIFFon 09-06-2022 BASO # 0.0 103/ul Normal 0.0-0.1 [facility] Comment on above: Performed By: #### C BC #### [facility] [address] [place] [address] Dr. Mikala Ramsay Basophils/100 WBC (Bld) 0.3 % Normal 0.2-2.0 [facility] Comment on above: Performed By: #### C BC #### [facility] [address] [address] [address] Mikala Ramsay EO # 0.0 103/ul Normal 0.0-0.7 [facility] Comment on above: Performed By: #### C BC #### [facility] [address] [address] [address] Mikala Ramsay Eosinophils/100 WBC (Bld) 0.6 % Critically low 0.9-7.0 [facility] Comment on above: Performed By: #### C BC #### [facility] [address] [place] [address] Dr. Mikala Ramsay Erythrocyte distribution width (RBC) [Ratio] 14.0 % Normal 11.0-15.0 [facility] Comment on above: Performed By: #### C BC #### [facility] [address] [place] [address] Dr. Mikala Ramsay Hematocrit (Bld) [Volume fraction] 38.7 % Normal 36.0-48.0 [facility] Comment on above: Performed By: #### C BC #### [facility] [address] [place] [address] Dr. Mikala Ramsay Hemoglobin (Bld) [Mass/Vol] 12.5 g/dL Normal 12.0-16.0 [facility] Comment on above: Performed By: #### C BC #### [facility] [address] [place] [address] Dr. Mikala Ramsay IG # 0.02 10e3/ul Normal 0.00-0.03 [facility] Comment on above: Performed By: #### C BC #### [facility] [address] [place] [address] Dr. Mikala Ramsay IG % 0.3 % Normal 0.0-0.5 [facility] Comment on above: Performed By: #### C BC #### [facility] [address] [place] [address] Dr. Mikala Ramsay LYMPH # 1.2 103/ul Normal 1.2-3.8 [facility] Comment on above: Performed By: #### C BC #### [facility] [address] [place] [address] Dr. Mikala Ramsay Lymphocytes/100 WBC (Bld) 17.4 % Critically low 20.5-60.0 [facility] Comment on above: Performed By: #### C BC #### [facility] [address] [place] [address] Dr. Mikala Ramsay MANUAL DIFF REQ NO Normal [facility] Comment on above: Performed By: #### C BC #### [facility] [address] [address] [address] Mikala Ramsay MCH (RBC) [Entitic mass] 26.0 pg Critically low 26.7-34.0 [facility] Comment on above: Performed By: #### C BC #### [facility] [address] [place] [address] Dr. Mikala Ramsay MCHC (RBC) [Mass/Vol] 32.3 g/dL Normal 29.9-35.2 [facility] Comment on above: Performed By: #### C BC #### [facility] [address] [place] [address] Dr. Mikala Ramsay MCV (RBC) [Entitic vol] 80.5 fL Critically low 81.0-99.0 [facility] Comment on above: Performed By: #### C BC #### [facility] [address] [place] [address] Dr. Mikala Ramsay MONO # 0.4 103/ul Normal 0.3-0.8 [facility] Comment on above: Performed By: #### C BC #### [facility] [address] [place] [address] Dr. Mikala Ramsay Monocytes/100 WBC (Bld) 5.9 % Normal 1.7-12.0 [facility] Comment on above: Performed By: #### C BC #### [facility] [address] [place] [address] Dr. Mikala Ramsay NEUT # 5.0 103/ul Normal 1.4-6.5 [facility] Comment on above: Performed By: #### C BC #### [facility] [address] [place] [address] Dr. Mikala Ramsay Neutrophils/100 WBC (Bld) 75.5 % Critically high 43.0-75.0 [facility] Comment on above: Performed By: #### C BC #### [facility] [address] [place] [address] Dr. Mikala Ramsay Platelet mean volume (Bld) [Entitic vol] 9.2 fL Critically low 9.5-13.5 [facility] Comment on above: Performed By: #### C BC #### [facility] [address] [address] [address] Mikala Ramsay PLT 286 103/ul Normal 150-450 [facility] Comment on above: Performed By: #### C BC #### [facility] [address] [place] [address] Dr. Mikala Ramsay RBC 4.81 106/ul Normal 4.20-5.40 [facility] [facility] Comment on above: Performed By: #### C BC #### [facility] [address] [address] [address] Mikala Ramsay WBC 6.7 103/ul Normal 4.0-11.0 [facility] Comment on above: Performed By: #### C BC #### [facility] [address] [place] [address] Dr. Mikala Ramsay PREG HCG QUALon 09-06-2022 , QUAL Negative Normal NEGATIVE [facility] Comment on above: Performed By: #### P REG #### [facility] [address] [place] [address] Dr. Mikala Ramsay PROF CHEM 8 (BAS METB)on Anion gap [Moles/Vol] 11.1 mmol/L Normal [facility] Comment on above: Performed By: #### B MP #### [facility] [address] [place] [address] Dr. Mikala Ramsay Calcium [Mass/Vol] 9.0 mg/dL Normal 8.5-10.1 [facility] Comment on above: Performed By: #### B MP #### [facility] [address] [place] [address] Dr. Mikala Ramsay Chloride [Moles/Vol] 106 mmol/L Normal 98-107 [facility] Comment on above: Performed By: #### B MP #### [facility] [address] [place] [address] Dr. Mikala Ramsay CO2 [Moles/Vol] 25.6 mmol/L Normal 21.0-32.0 [facility] Comment on above: Performed By: #### B MP #### [facility] [address] [address] [address] Mikala Ramsay Creatinine [Mass/Vol] 0.72 mg/dL Normal 0.55-1.02 [facility] Comment on above: Performed By: #### B MP #### [facility] [address] [address] [address] Mikala Ramsay EGFR-AF ITALIAN >60 Normal >=60 [facility] Comment on above: Performed By: #### B MP #### [facility] [address] [address] [address] Mikala Ramsay EGFR-NON AF ITALIAN >60 Normal >=60 [facility] Comment on above: Performed By: #### B MP #### [facility] [address] [place] [address] Dr. Mikala aRmsay Glucose [Mass/Vol] 84 mg/dL Normal 74-106 [facility] Comment on above: Performed By: #### B MP #### [facility] [address] [place] [address] Dr. Mikala Ramsay Potassium [Moles/Vol] 3.7 mmol/L Normal 3.5-5.1 [facility] Comment on above: Performed By: #### B MP #### [facility] [address] [place] [address] Dr. Mikala Ramsay Sodium [Moles/Vol] 139 mmol/L Normal 136-145 [facility] Comment on above: Performed By: #### B MP #### [facility] [address] [place] [address] Dr. Mikala Ramsay Urea nitrogen [Mass/Vol] 10.0 mg/dL Normal 6.4-19.3 [facility] Comment on above: Performed By: #### B MP #### [facility] [address] [place] [address] Dr. Mikala Ramsay Urea nitrogen/Creatinine [Mass ratio] 13.9 mg/mg Normal [facility] Comment on above: Performed By: #### B MP #### [facility] [address] [place] [address] Dr. Mikala Ramsay CBC AUTO DIFFon 08-16-2022 BASO # 0.0 103/ul Normal 0.0-0.1 [facility] Comment on above: Performed By: #### C BC #### [facility] [address] [place] [address] Dr. Mikala Ramsay Basophils/100 WBC (Bld) 0.6 % Normal 0.2-2.0 [facility] Comment on above: Performed By: #### C BC #### [facility] [address] [place] [address] Dr. Mikala Ramsay EO # 0.1 103/ul Normal 0.0-0.7 [facility] Comment on above: Performed By: #### C BC #### [facility] [address] [place] [address] Dr. Mikala Ramsay Eosinophils/100 WBC (Bld) 1.3 % Normal 0.9-7.0 [facility] Comment on above: Performed By: #### C BC #### [facility] [address] [place] [address] Dr. Mikala Ramsay Erythrocyte distribution width (RBC) [Ratio] 14.5 % Normal 11.0-15.0 [facility] Comment on above: Performed By: #### C BC #### [facility] [address] [place] [address] Dr. Mikala Ramsay Hematocrit (Bld) [Volume fraction] 37.6 % Normal 36.0-48.0 [facility] Comment on above: Performed By: #### C BC #### [facility] [address] [place] [address] Dr. Mikala Ramsay Hemoglobin (Bld) [Mass/Vol] 12.2 g/dL Normal 12.0-16.0 [facility] Comment on above: Performed By: #### C BC #### [facility] [address] [place] [address] Dr. Mikala Ramsay IG # 0.02 10e3/ul Normal 0.00-0.03 [facility] Comment on above: Performed By: #### C BC #### [facility] [address] [place] [address] Dr. Mikala Ramsay IG % 0.3 % Normal 0.0-0.5 [facility] Comment on above: Performed By: #### C BC #### [facility] [address] [place] [address] Dr. Mikala Ramsay LYMPH # 2.1 103/ul Normal 1.2-3.8 [facility] Comment on above: Performed By: #### C BC #### [facility] [address] [place] [address] Dr. Mikala Ramsay Lymphocytes/100 WBC (Bld) 33.4 % Normal 20.5-60.0 [facility] Comment on above: Performed By: #### C BC #### [facility] [address] [place] [address] Dr. Mikala Ramsay MANUAL DIFF REQ NO Normal [facility] Comment on above: Performed By: #### C BC #### [facility] [address] [place] [address] Dr. Mikala Ramsay MCH (RBC) [Entitic mass] 26.2 pg Critically low 26.7-34.0 [facility] Comment on above: Performed By: #### C BC #### [facility] [address] [place] [address] Dr. Mikala Ramsay MCHC (RBC) [Mass/Vol] 32.4 g/dL Normal 29.9-35.2 [facility] Comment on above: Performed By: #### C BC #### [facility] [address] [place] [address] Dr. Mikala Ramsay MCV (RBC) [Entitic vol] 80.7 fL Critically low 81.0-99.0 [facility] Comment on above: Performed By: #### C BC #### [facility] [address] [place] [address] Dr. Mikala Ramsay MONO # 0.4 103/ul Normal 0.3-0.8 [facility] Comment on above: Performed By: #### C BC #### [facility] [address] [place] [address] Dr. Mikala Ramsay Monocytes/100 WBC (Bld) 6.2 % Normal 1.7-12.0 [facility] Comment on above: Performed By: #### C BC #### [facility] [address] [place] [address] Dr. Mikala Ramsay NEUT # 3.7 103/ul Normal 1.4-6.5 [facility] Comment on above: Performed By: #### C BC #### [facility] [address] [address] [address] Mikala Ramsay Neutrophils/100 WBC (Bld) 58.2 % Normal 43.0-75.0 [facility] Comment on above: Performed By: #### C BC #### [facility] [address] [place] [address] Dr. Mikala Ramsay Platelet mean volume (Bld) [Entitic vol] 9.3 fL Critically low 9.5-13.5 [facility] Comment on above: Performed By: #### C BC #### [facility] [address] [place] [address] Dr. Mikala Ramsay PLT 310 103/ul Normal 150-450 [facility] Comment on above: Performed By: #### C BC #### [facility] [address] [place] [address] Dr. Mikala Ramsay RBC 4.66 106/ul Normal 4.20-5.40 [facility] Comment on above: Performed By: #### C BC #### [facility] [address] [place] [address] Dr. Mikala Ramsay WBC 6.3 103/ul Normal 4.0-11.0 [facility] Comment on above: Performed By: #### C BC #### [facility] [address] [place] [address] Dr. Mikala Ramsay XR elbow LT min 3V*on 2021 XR elbow LT min 3V* [facility] [employer] Other XR elbow LT min 3V* [facility] [employer] Other XR elbow LT min 3V* [address] [employer] Other XR elbow LT min 3V* ROLANDO Arevalo [address] [employer] Other XR elbow LT min 3V* XRay Report [facility] [employer] Other XR elbow LT min 3V* Signed [employer] Other XR elbow LT min 3V* Patient: Shilpi Ware MR#: [id number] [employer] Other XR elbow LT min 3V* : 2005 Acct:[id number] [employer] Other XR elbow LT min 3V* Age/Sex: 16 / F ADM Date: 01/10/22 [employer] Other XR elbow LT min 3V* Loc: XDUCLY Room: Type: [facility] CLI [employer] Other XR elbow LT min 3V* Attending Dr: Lynette Flores [facility] [employer] Other XR elbow LT min 3V* Ordering Provider: [facility]ORES [facility] [employer] Other XR elbow LT min 3V* Date of Service: 01/10/22 [employer] Other XR elbow LT min 3V* XR/XR elbow LT min 3V*: Injury of left elbow, initial encounter [employer] Other XR elbow LT min 3V* Copies to: LYNETTE FLORES [employer] Other XR elbow LT min 3V* XR elbow LT min 3V* 01/10/2022 10:51 AM [employer] Other XR elbow LT min 3V* SIGNS AND SYMPTOMS: Injury of left elbow, left elbow pain [employer] Other XR elbow LT min 3V* PROTOCOL: Frontal, lateral, and oblique radiographs of the left elbow [employer] Other XR elbow LT min 3V* COMPARISON: None [employer] Other XR elbow LT min 3V* FINDINGS: [employer] Other XR elbow LT min 3V* There is no fracture or dislocation. No joint effusion. No soft tissue swelling. The joint spaces [employer] Other XR elbow LT min 3V* are preserved. [facility] [employer] Other XR elbow LT min 3V* XR/XR elbow LT min 3V* [employer] Other XR elbow LT min 3V* IMPRESSION: [employer] Other XR elbow LT min 3V* No acute bony injury. [employer] Other XR elbow LT min 3V* Impression dictated by: Johnson Grijalva M.D.01/10/2022 11:26 AM [employer] Other XR elbow LT min 3V* Dictation Location: [address] [place] [address] [employer] Other XR elbow LT min 3V* Transcribed By: YESSY 01/10/22 1126 [employer] Other XR elbow LT min 3V* Dictated By: Johnson Grijalva II, MD 01/10/22 1125 [employer] Other XR elbow LT min 3V* Signed By: [employer] Other XR elbow LT min 3V* 01/10/22 112 No rt [employer] Other [employer] 11-03-2021 S. pyogenes Org specific cx Ql (Throat) Negative [employer] Other [employer] Other Vital Signs Date Time Vital Sign Value Performing Clinician Facility 01-23-2025 10:47-0500 Body mass index (BMI) [Ratio] 22.66 kg/m2 Ho Nupur DO Work Phone: [facility] 01-23-2025 10:47-0500 Body weight 59.88 kg Ho Nupur DO Work Phone: [facility] 01-23-2025 10:47-0500 Diastolic blood pressure 68 mm[Hg] Ho Nupur DO Work Phone: [facility] 01-23-2025 10:47-0500 Systolic blood pressure 120 mm[Hg] Ho Nupur DO Work Phone: [facility] 12-30-2024 14:44-0500 Body mass index (BMI) [Ratio] 21.63 kg/m2 Ho Nupur DO Work Phone: [facility] 12-30-2024 14:44-0500 Body weight 57.15 kg Ho Nupur DO Work Phone: [facility] 12-30-2024 14:44-0500 Diastolic blood pressure 66 mm[Hg] Ho Nupur DO Work Phone: [facility] 12-30-2024 14:44-0500 Systolic blood pressure 100 mm[Hg] Ho Nupur DO Work Phone: [facility] 10-25-2024 11:17-0500 Body mass index (BMI) [Ratio] 20.08 kg/m2 Nom Nurse [facility] 10-25-2024 11:17-0500 Body weight 53.07 kg [facility] Nurse [facility] 10-25-2024 11:17-0500 Diastolic blood pressure 68 mm[Hg] [facility] Nurse [facility] 10-25-2024 11:17-0500 Systolic blood pressure 102 mm[Hg] [facility] Nurse [facility] 07-23-2024 09:34-0400 Body mass index (BMI) [Ratio] 20.08 kg/m2 Ho Nupur DO Work Phone: [facility] 07-23-2024 09:34-0400 Body weight 53.07 kg Ho Nupur DO Work Phone: [facility] 07-23-2024 09:34-0400 Diastolic blood pressure 68 mm[Hg] Ho Nupur DO Work Phone: [facility] 07-23-2024 09:34-0400 Systolic blood pressure 104 mm[Hg] Ho Nupur DO Work Phone: [facility] 04-18-2024 14:41-0400 Body height 162.56 cm BISTRO ATTENDANTBetzy Almendarez Work Phone: [facility] 04-18-2024 14:41-0400 Body mass index (BMI) [Ratio] 20.8 kg/m2 BISTRO ATTENDANTBetzy Almendarez Work Phone: [facility] 04-18-2024 14:41-0400 Body temperature 98.8 [degF] BISTRO ATTENDANT Isabella Almendarez Work Phone: [facility] 04-18-2024 14:41-0400 Body weight 54.99 kg BISTRO ATTENDANTBetzy Almendarez Work Phone: [facility] 04-18-2024 14:41-0400 Heart rate 67 /min BISTRO ATTENDANTBetzy Almendarez Work Phone: [facility] 04-18-2024 14:41-0400 Respiratory rate 18 /min BISTRO ATTENDANT Isabella Almendarez Work Phone: [facility] 04-18-2024 14:41-0400 SaO2% (BldA) [Mass fraction] 98 % BISTRO ATTENDANT Isabella Almendarez Work Phone: [facility] 01-11-2023 17:10-0500 Body height 163.83 cm Lynette Flores Other [employer] Other 01-11-2023 17:10-0500 Body mass index (BMI) [Ratio] 19.94 kg/m2 Lynette Flores Other [employer] Other 01-11-2023 17:10-0500 Body temperature 98.2 [degF] Lynette Flores Other [employer] Other 01-11-2023 17:10-0500 Body weight 53.52 kg Lynette Flores Other [employer] Other 01-11-2023 17:10-0500 Respiratory rate 18 /min Lynette Flores Other [employer] Other 01-11-2023 17:10-0500 SaO2% (BldA) [Mass fraction] 99 % Lynette Flores Other [employer] Other 12-13-2022 16:30-0500 Body height 162.56 cm Lanny Nieves Other [employer] Other 12-13-2022 16:30-0500 Body mass index (BMI) [Ratio] 20.25 kg/m2 Lanny Nieves Other [employer] Other 12-13-2022 16:30-0500 Body temperature 97.2 [degF] Lanny Nieves Other [employer] Other 12-13-2022 16:30-0500 Body weight 53.52 kg Lanny Nieves Other [employer] Other 12-13-2022 16:30-0500 Respiratory rate 18 /min Lanny Nieves Other [employer] Other 12-13-2022 16:30-0500 SaO2% (BldA) [Mass fraction] 99 % Lanny Nieves Other [employer] Other 07-04-2022 17:25-0400 Body height 163.83 cm Lynette Flores Other [employer] Other 07-04-2022 17:25-0400 Body mass index (BMI) [Ratio] 19.77 kg/m2 Lynette Btaesault Other [employer] Other 07-04-2022 17:25-0400 Body temperature 97.8 [degF] Lynette Batesault Other [employer] Other 07-04-2022 17:25-0400 Body weight 53.07 kg Lynette Batesault Other [employer] Other 07-04-2022 17:25-0400 Diastolic blood pressure 65 mm[Hg] Lynette Batesault Other [employer] Other 07-04-2022 17:25-0400 Respiratory rate 18 /min Lynette Flores Other [employer] Other 07-04-2022 17:25-0400 SaO2% (BldA) [Mass fraction] 100 % Lynette Batesault Other [employer] Other 07-04-2022 17:25-0400 Systolic blood pressure 110 mm[Hg] Lynette Conrado Other [employer] Other 03-16-2022 14:01-0400 Blood Pressure Location Iker JHONNYEK [facility] [place] 04-27-2022 14:01-0400 Body temperature 97.7 [degF] Iker WNEK [facility] [place] 03-16-2022 14:01-0400 Diastolic blood pressure 68 mm[Hg] Iker WNEK [facility] [place] 03-16-2022 14:01-0400 Heart rate 76 /min Iker WNEK [facility] [place] 03-16-2022 14:01-0400 Respiratory rate 18 /min Iker WNEK [facility] [place] 03-16-2022 14:01-0400 SaO2% (BldA) [Mass fraction] 98 % Iker WNEK [facility] [place] 03-16-2022 14:01-0400 Systolic blood pressure 120 mm[Hg] Iker WNEK [facility] [place] 03-02-2022 14:34-0400 Blood Pressure Location Iker WNEK [facility] [place] 03-02-2022 14:34-0400 Body temperature 98.24 [degF] Iker WNEK [facility] [place] 03-02-2022 14:34-0400 Diastolic blood pressure 60 mm[Hg] Iker WNEK [facility] [place] 03-02-2022 14:34-0400 Heart rate 76 /min Iker WNEK [facility] [place] 03-02-2022 14:34-0400 Respiratory rate 18 /min Iker OLIVAS [facility] 03-02-2022 14:34-0400 SaO2% (BldA) [Mass fraction] 98 % Iker OLIVAS [facility] [place] 03-02-2022 14:34-0400 Systolic blood pressure 118 mm[Hg] Iker OLIVAS [facility] [place] 02-25-2022 10:15-0400 Body height 163.83 cm Maddie Dickson Other [employer] Other 02-25-2022 10:15-0400 Body mass index (BMI) [Ratio] 19.26 kg/m2 Maddie Dickson Other [employer] Other 02-25-2022 10:15-0400 Body temperature 97.1 [degF] Maddie Dickson Other [employer] Other 02-25-2022 10:15-0400 Body weight 51.71 kg Maddie Dickson Other [employer] Other 02-25-2022 10:15-0400 SaO2% (BldA) [Mass fraction] 99 % Maddie Dickson Other [employer] Other 02-22-2022 13:23-0400 Blood Pressure Location Marli Chet [facility] [place] 02-22-2022 13:23-0400 Body temperature 97.34 [degF] Marli Chet [facility] [place] 02-22-2022 13:23-0400 Diastolic blood pressure 70 mm[Hg] Marli Chet [facility] 02-22-2022 13:23-0400 Heart rate 80 /min Marliannia Rosenberg [facility] [place] 02-22-2022 13:23-0400 Respiratory rate 16 /min Marli Chet [facility] [place] 02-22-2022 13:23-0400 SaO2% (BldA) [Mass fraction] 98 % Marli Rosenberg [facility] [place] 02-22-2022 13:23-0400 Systolic blood pressure 118 mm[Hg] Marli Olds [facility] 01-10-2022 11:30-0500 Body height 162.56 cm Lynette Flores Other [employer] Other 01-10-2022 11:30-0500 Body mass index (BMI) [Ratio] 21.45 kg/m2 Lynette Flores Other [employer] Other 01-10-2022 11:30-0500 Body temperature 96.9 [degF] Lynette Flores Other [employer] Other 01-10-2022 11:30-0500 Body weight 56.7 kg Lynette Flores Other [employer] Other 01-10-2022 11:30-0500 Diastolic blood pressure 69 mm[Hg] Lynette Flores Other [employer] Other 01-10-2022 11:30-0500 Respiratory rate 18 /min Lynette Flores Other [employer] Other 01-10-2022 11:30-0500 SaO2% (BldA) [Mass fraction] 99 % Lynette Flores Other [employer] Other 01-10-2022 11:30-0500 Systolic blood pressure 121 mm[Hg] Lynette Flores Other [employer] Other 11-03-2021 17:45-0500 Body height 162.56 cm Maddie Rosasmond Other [employer] Other 11-03-2021 17:45-0500 Body mass index (BMI) [Ratio] 21.8 kg/m2 Maddie Rosasmond Other [employer] Other 11-03-2021 17:45-0500 Body temperature 97.8 [degF] Maddie Rosasmond Other [employer] Other 11-03-2021 17:45-0500 Body weight 57.61 kg Maddie Rosasmond Other [employer] Other 11-03-2021 17:45-0500 Respiratory rate 18 /min Maddie Rosasmond Other [employer] Other 11-03-2021 17:45-0500 SaO2% (BldA) [Mass fraction] 99 % Maddie Dickson Other [place] [employer] Other Encounters Encounter Date Encounter Type Care Provider Facility Start: 01-23-2025 End: 01-23-2025 Bamboo flowsheet Ho Nupur DO Work Phone: [facility] Start: 01-23-2025 End: 01-23-2025 Bamboo flowsheet Ho Nupur DO Work Phone: [facility] Start: 01-23-2025 End: 01-23-2025 ambulatory HO NUPUR Not Available Start: 01-23-2025 End: 01-23-2025 flow sheet Ho Nupur DO Work Phone: [facility] Comment on above: 24 weeks gestation o f ; Third trimester ; Diabetes mellitus screening Start: 01-16-2025 End: 01-16-2025 Clinisync Result Encounter Ho Nupur DO Work Phone: [facility] Unsolicited Start: 01-16-2025 End: 01-16-2025 Clinisync Result Encounter Ho Nupur DO Work Phone: [facility] Unsolicited Start: 12-30-2024 End: 12-30-2024 ambulatory HO NUPUR Not Available Start: 12-30-2024 End: 12-30-2024 flow sheet Ho Nupur DO Work Phone: [facility] Comment on above: Third trimester [...] Start: 04-18-2024 End: 04-18-2024 ambulatory Isabella Almendarez [facility] Work Phone: Start: 04-18-2024 End: 04-18-2024 Departed Referred TRINITY Almendarez Work Phone: [facility] [place] Work Phone: Start: 04-18-2024 End: 04-18-2024 Patient encounter procedure TRINITY Almendarez Work Phone: [facility] Work Phone: Start: 12-29-2023 ambulatory Facility:[facility] Start: 01-11-2023 End: 01-11-2023 ambulatory Lynette Flores Other [place] [employer] Other Start: 01-11-2023 Office outpatient visit 25 minutes Lynette Flores [facility] Start: 12-13-2022 End: 12-13-2022 ambulatory Lanny Nieves Other [employer] Other Start: 12-13-2022 Office outpatient visit 15 minutes Lanny Nieves [facility] Start: 11-25-2022 End: 11-25-2022 ambulatory NONE LISTED REQUEST Facility:[facility] Start: 11-03-2022 End: 11-03-2022 ambulatory NONE LISTED REQUEST Facility:[facility] Start: 09-06-2022 End: 09-06-[address] GREG BO . Facility:[facility] Start: 08-18-2022 End: 08-18-2022 ambulatory MD Iker Olivas Work Phone: [facility] [employer] Work Phone: Start: 08-18-2022 End: 08-18-2022 Departed Referred MD Iker Olivas Work Phone: [facility] [place] Start: 08-16-2022 End: 08-17-[address] DOCTOR BERRY Facility:[facility] Start: 07-04-2022 End: 07-04-2022 ambulatory Lynette Flores Other [employer] Other Start: 07-04-2022 Office outpatient visit 15 minutes Lynette Flores [facility] Start: 05-05-2022 End: 05-05-2022 ambulatory IKER OLIVAS [facility] Start: 03-16-2022 End: 03-16-2022 Patient encounter procedure Iker OLIVAS [facility] [place] Start: 03-02-2022 End: 03-02-2022 Patient encounter procedure Iker OLIVAS [facility] [place] Start: 02-25-2022 End: 02-25-2022 ambulatory Maddie Dickson Other [employer] Other Start: 02-25-2022 Office outpatient visit 25 minutes Maddiekevin Dickson [facility] Start: 02-22-2022 End: 02-22-2022 Patient encounter procedure Marli Rosenberg [facility] Start: 01-10-2022 End: 01-10-2022 ambulatory Lynette Flores Other [employer] Other Start: 01-10-2022 Office outpatient visit 15 minutes Lynette Flores [facility] Start: 11-03-2021 End: 11-03-2021 ambulatory Maddie Dickson Other [employer] Other Start: 11-03-2021 Office outpatient visit 15 minutes Maddiekevin Dickson [facility] Procedures Date Procedure Procedure Detail Performing Clinician Start: 01-23-2025 Urnls dip stick/tabl et rgnt non-auto w/o micrscp Ho Nupur DO Work Phone: Start: 01-16-2025 ALL CBC WITH AUTO DIFF Ho Nupur DO Work Phone: Start: 12-30-2024 URINARY TRACT INFECT ION (HTRX) [...] Core y Nupur DO Work Phone: Start: 10-24-2024 [facility] PREG QUANT HCG Core y Nupur DO Work Phone: Start: 07-25-2024 ALL CBC WITH AUTO DIFF Ho Nupur DO Work Phone: Start: 11-20-2007 Dentition (body structure) Marli Rosenberg Comment on above: multiple surgeries w [facility] per Shilpi. Plan of Treatment Date Care Activity Detail Author Start: 01-23-2025 End: 01-23-2026 CBC panel - Blood by Automated count CBC Lab Routine Diabetes mellitus screening Expected: 01/23/2025 (Approximate), Expires: 01/23/2026 [facility] Work Phone: Comment on above: Expected: 01/23/2025 (Approximate), Expires: 01/23/2026 Start: 01-23-2025 End: 01-23-2026 Measurement of glucose 1 hour after glucose challenge for glucose tolerance test Glucose tolerance, 1 hour Lab Routine Diabetes mellitus screening Expected: 01/23/2025 (Approximate), Expires: 01/23/2026 [facility] Comment on above: Expected: 01/23/2025 (Approximate), Expires: 01/23/2026 Start: 01-23-2025 End: 01-23-2025 Patient encounter procedure 01/23/2025 10:20 AM EST Routine [facility] [address] [place] [id number] Ho Espitia, DO [address] [place] [address] [facility] Start: 12-30-2024 End: 12-30-2025 12 lead ECG ECG 12 lead unit performed ECG Routine Near syncope Lightheadedness Expected: 12/30/2024 (Approximate), Expires: 12/30/2025 [facility] Comment on above: Expected: 12/30/2024 (Approximate), Expires: 12/30/2025 Start: 12-30-2024 End: 12-30-2026 Echocardiogram 2D complete Echocardiogram 2D complete Echocardiography Routine Near syncope Lightheadedness Expected: 12/30/2024 (Approximate), Expires: 12/30/2026 [facility] Comment on above: Expected: 12/30/2024 (Approximate), Expires: 12/30/2026 Start: 12-30-2024 End: 12-30-2024 Patient encounter procedure 12/30/2024 11:30 AM EST Routine [facility] [address] [facility] [facility] [id number] Ho Espitia, DO [address] [place] [address] [facility] Start: 12-30-2024 End: 12-30-2024 Professional / ancillary services management 12/30/2024 10:30 AM EST Ancillary Procedure [facility] [address] [id number] [facility] Start: 11-26-2024 End: 01-24-2025 Alpha fetoprotein, maternal Alpha fetoprotein, maternal Lab Routine 15 weeks gestation of Expected: 11/26/2024 (Approximate), Expires: 01/24/2025 [facility] Comment on above: Expected: 11/26/2024 (Approximate), Expires: 01/24/2025 Start: 11-26-2024 End: 11-26-2025 US for US OB 14+ weeks anatomy scan Imaging Routine 15 weeks gestation of Screening, , for anatomic survey Expected: 11/26/2024, Expires: 11/26/2025 [facility] Work Phone: Comment on above: Expected: 11/26/2024 , Expires: 11/26/2025 Start: 11-26-2024 End: 11-26-2024 Patient encounter procedure 11/26/2024 11:30 AM EST Routine [facility] [address] [facility] [place] [id number] Ho Espitia, DO [address] [place] [address] [facility] Start: 10-25-2024 End: 10-25-2025 ABO/Rh ABO/Rh Lab Routine Missed menses , unspecified gestational age Expected: 10/25/2024 (Approximate), Expires: 10/25/2025 [facility] Comment on above: Expected: 10/25/2024 (Approximate), Expires: 10/25/2025 Start: 10-25-2024 End: 10-25-2025 Blood type and Indirect antibody screen panel - Blood Type and screen Lab Routine Missed menses , unspecified gestational age Expected: 10/25/2024 (Approximate), Expires: 10/25/2025 [facility] Work Phone: Comment on above: Expected: 10/25/2024 (Approximate), Expires: 10/25/2025 Start: 10-25-2024 End: 10-25-2025 Drugs of abuse panel - Urine by Screen method Rapid drug screen, urine Lab Routine , unspecified gestational age Encounter for supervision of normal first in first trimester Expected: 10/25/2024 (Approximate), Expires: 10/25/2025 [facility] Comment on above: Expected: 10/25/2024 (Approximate), Expires: 10/25/2025 Start: 10-25-2024 End: 10-25-2025 US Pelvis transvaginal US OB transvaginal Imaging Routine Missed menses Expected: 10/25/2024 (Approximate), Expires: 10/25/2025 [facility] Comment on above: Expected: 10/25/2024 (Approximate), Expires: 10/25/2025 Start: 07-23-2024 End: 07-23-2025 Antimullerian hormone (AMH) Antimullerian hormone (AMH) Lab Routine Encounter for infertility PCOS (polycystic ovarian syndrome) Expected: 07/23/2024 (Approximate), Expires: 07/23/2025 [facility] Comment on above: Expected: 07/23/2024 (Approximate), Expires: 07/23/2025 Start: 07-23-2024 End: 07-23-2025 DHEA DHEA Lab Routine PCOS (polycystic ovarian syndrome) Expected: 07/23/2024 (Approximate), Expires: 07/23/2025 [facility] Comment on above: Expected: 07/23/2024 (Approximate), Expires: 07/23/2025 Start: 07-23-2024 End: 07-23-2025 US for US PELVIS-TRANSVAG IF INDICATED Imaging Routine PCOS (polycystic ovarian syndrome) Expected: 07/23/2024 (Approximate), Expires: 07/23/2025 [facility] Comment on above: Expected: 07/23/2024 (Approximate), Expires: 07/23/2025 Start: 07-21-2024 Influenza vaccination Influenza Vacc ine (#1) [facility] Start: 04-19-2024 Bacteria identified in Urine by Culture [facility] Start: 04-18-2024 Bacteria identified in Urine by Culture [facility] Bacteria identified in Urine by Culture Urine culture Microbiology Routine Missed menses Ordered: 10/25/2024 [facility] Comment on above: Ordered: 10/25/2024 Bacteria identified in Urine by Culture Urine culture Microbiology Routine UTI symptoms Ordered: 12/30/2024 [facility] Work Phone: Comment on above: Ordered: 12/30/2024 CBC W Auto Different ial panel - Blood CBC and differential Lab Routine PCOS (polycystic ovarian syndrome) Ordered: 07/23/2024 [facility] Comment on above: Ordered: 07/23/2024 CBC W Auto Different ial panel - Blood CBC and differential Lab Routine Missed menses , unspecified gestational age Ordered: 10/25/2024 [facility] Comment on above: Ordered: 10/25/2024 CBC W Auto Different ial panel - Blood CBC and differential Lab Routine Near syncope Lightheadedness Ordered: 12/30/2024 [facility] Comment on above: Ordered: 12/30/2024 DHEA-sulfate DHEA-sulfate Lab Routine PCOS (polycystic ovarian syndrome) Ordered: 07/23/2024 [facility] Comment on above: Ordered: 07/23/2024 Estradiol Estradiol Lab Ro utine Encounter for infertility PCOS (polycystic ovarian syndrome) Ordered: 07/23/2024 [facility] Comment on above: Ordered: 07/23/2024 Follicle stimulating hormone Follicle stimulating hormone Lab Routine PCOS (polycystic ovarian syndrome) Ordered: 07/23/2024 [facility] Comment on above: Ordered: 07/23/2024 hCG, quantitative, hCG, quantitative, Lab Routine PCOS (polycystic ovarian syndrome) Ordered: 07/23/2024 [facility] Work Phone: Comment on above: Ordered: 07/23/2024 Hemoglobin A1c/Hemoglobin.total in Blood Hemoglobin A1c Lab Routine Encounter for infertility PCOS (polycystic ovarian syndrome) Ordered: 07/23/2024 [facility] Comment on above: Ordered: 07/23/2024 Hemoglobin A1c/Hemoglobin.total in Blood Hemoglobin A1c Lab Routine Missed menses , unspecified gestational age Ordered: 10/25/2024 [facility] Comment on above: Ordered: 10/25/2024 Hepatitis B virus surface Ag [Presence] in Serum or Plasma by Immunoassay Hepatitis B surface antigen Lab Routine Missed menses , unspecified gestational age Ordered: 10/25/2024 [facility] Comment on above: Ordered: 10/25/2024 Hepatitis C virus Ab [Presence] in Serum or Plasma by Immunoassay Hepatitis C antibody Lab Routine Missed menses , unspecified gestational age Ordered: 10/25/2024 [facility] Comment on above: Ordered: 10/25/2024 HIV-1/HIV-2 antigen/antibody combination immunoassay HIV-1 and HIV-2 antibodies Lab Routine Missed menses , unspecified gestational age Ordered: 10/25/2024 [facility] Comment on above: Ordered: 10/25/2024 Luteinizing hormone Luteinizing hormone Lab Routine PCOS (polycystic ovarian syndrome) Ordered: 07/23/2024 [facility] Comment on above: Ordered: 07/23/2024 Progesterone Progesterone Lab Routine Encounter for infertility PCOS (polycystic ovarian syndrome) Ordered: 07/23/2024 [facility] Comment on above: Ordered: 07/23/2024 Reagin Ab [Presence] in Serum by RPR RPR Lab Routine Missed menses , unspecified gestational age Ordered: 10/25/2024 [facility] Comment on above: Ordered: 10/25/2024 Rubella antibody, IgG Rubella an tibody, IgG Lab Routine Missed menses , unspecified gestational age Ordered: 10/25/2024 [facility] Comment on above: Ordered: 10/25/2024 Thyrotropin [Units/volume] in Serum or Plasma TSH Lab Routine PCOS (polycystic ovarian syndrome) Ordered: 07/23/2024 [facility] Comment on above: Ordered: 07/23/2024 Thyrotropin [Units/volume] in Serum or Plasma TSH Lab Routine Near syncope Lightheadedness Ordered: 12/30/2024 [facility] Comment on above: Ordered: 12/30/2024 Thyroxine (T4) free [Mass/volume] in Serum or Plasma T4, free Lab Routine PCOS (polycystic ovarian syndrome) Ordered: 07/23/2024 [facility] Comment on above: Ordered: 07/23/2024 Immunizations Immunization Date Immunization Notes Care Provider Gulshan nunes 12-10-2020 hepatitis A vaccine, pediatric/adolescent dosage, 2 dose schedule Marli Rosenberg [facility] 12-10-2020 meningococcal polysaccharide (groups A, C, Y and W-135) diphtheria toxoid conjugate vaccine (MCV4P) Marliannia Rosenberg [facility] 09-01-2016 meningococcal ACWY vaccine, unspecified formulation Marli Rosenberg [facility] 09-01-2016 tetanus toxoid, redu matthieu diphtheria toxoid, and acellular pertussis vaccine, adsorbed Marliannia Rosenberg [facility] 12-10-2013 influenza virus vacc ine, unspecified formulation Marliannia Rosenberg [facility] 12-11-2008 influenza virus vacc ine, unspecified formulation Marli Rosenberg [facility] 05-01-2008 diphtheria, tetanus toxoids and acellular pertussis vaccine Marliannia Rosenbreg [facility] 05-01-2008 hepatitis B vaccine, adult dosage Marli Rosenberg [facility] 05-01-2008 measles, mumps and rubella virus vaccine Marli Chet [facility] 05-01-2008 poliovirus vaccine, unspecified formulation Marli Chet [facility] 05-01-2008 varicella virus vaccine Brittney abeth Chet [facility] 03-16-2005 diphtheria, tetanus toxoids and acellular pertussis vaccine Marli Chet [facility] 03-16-2005 haemophilus influenz ae type b vaccine, HbOC conjugate Marli Rosenberg [facility] 03-16-2005 measles, mumps and rubella virus vaccine Marli Rosenberg [facility] 03-16-2005 pneumococcal conjuga te vaccine, 13 valent Marli Rosenberg [facility] 03-16-2005 varicella virus vaccine Brittney abeth Chet [facility] 2004 influenza virus vacc ine, unspecified formulation Marli Rosenberg [facility] 2004 diphtheria, tetanus toxoids and acellular pertussis vaccine Marli Rosenberg [facility] 2004 haemophilus influenz ae type b vaccine, HbOC conjugate Marli [place] [facility] 2004 hepatitis B vaccine, adult dosage Marli [place] [facility] 2004 pneumococcal conjuga te vaccine, 13 valent Marli [place] [facility] 2004 poliovirus vaccine, unspecified formulation Marli [place] [facility] 2004 diphtheria, tetanus toxoids and acellular pertussis vaccine Marli [place] [facility] 2004 haemophilus influenz ae type b vaccine, HbOC conjugate Marli Chet [facility] 2004 hepatitis B vaccine, adult dosage Marli [place] [facility] 2004 pneumococcal conjuga te vaccine, 13 valent Marli [place] [facility] 2004 poliovirus vaccine, unspecified formulation Marli [place] [facility] 2004 diphtheria, tetanus toxoids and acellular pertussis vaccine Marli [place] [facility] 2004 haemophilus influenz ae type b vaccine, HbOC conjugate Marli Rosenberg [facility] 2004 hepatitis B vaccine, adult dosage Marli Rosenberg [facility] 2004 pneumococcal conjuga te vaccine, 13 valent Marli Rosenberg [facility] 2004 poliovirus vaccine, unspecified formulation Marli Rosenberg [facility] Payers Date Payer Category Payer Self-pay [id number] 2024 Medicaid [employer] [place] [id number] 2024-Present [address] [place] [address] [id number] 2024 Medicaid [id number] 2013 Private Health Insurance [id number] 2004 Unknown [id number] [id number]. 479 2004 Unknown [id number] 2.16.840.1.391039.3.579.2. 593 2004 Unknown [id number] 2.16.840.1.595589.3.579.2. 593 2004 Unknown [id number] 2.16.840.1.018915.3.579.2. 593 2004 Unknown [id number] 2.16.840.1.213924.3.579.2. 1259 2004 Unknown [id number] 2.16.840.1.060107.3.579.2. 1259 2004 Unknown [id number] 2.16.840.1.206054.3.579.2. 1259 2004 Unknown [id number] 2.16.840.1.411213.3.579.2. 1259 2004 Unknown [id number] 2.16.840.1.493916.3.579.2. 9 2004 Unknown [id number] 2.16.840.1.631219.3.579.2. 1259 1984 Unknown [id number] 2.16.840.1.189943.3.579.2. 593 1959 Unknown [id number] 2.16.840.1.115087.19 1959 Unknown [id number] 2.16.840.1.533074.19 1959 Unknown [id number] 2.16.840.1.396405.19 Unknown Josephine / [id number] Unknown [id number] 2.16.840.1.454621.19 Unknown [id number] 2.16.840.1.036269.3.579.2. 531 Social History Date Type Detail Facility Start: 01-07-2022 End: 11-01-2023 Tobacco smoking status Never smoked tobacco (finding) [facility] Other Tobacco smoking status Never [facility] [place] Start: 11-01-2023 End: 07-23-2024 Sex Assigned At Female [facility] Other Start: 2004 Sex Assigned At Female F [facility] Start: 11-01-2023 Tobacco use and exposure Smokeless tobacco non-user [facility] Start: 07-23-2024 End: 01-23-2025 Alcoholic beverage intake Lifetime non-drinker (finding) [facility] Start: 11-01-2023 End: 07-23-2024 History of Social function [facility] Start: 11-01-2023 Alcohol Comment caffeine: pop/ tea once or twice a week [facility] Start: 07-23-2024 Gender identity Identifies as female gender (finding) [facility] Start: 08-22-2024 [facility] Clinical Notes 08-21-2013 to 01-23-2025 GEORGI Presley - 01/23/2025 10:20 AM Juan R Leal, [facility] - 12/30/2024 2:10 PM Lisa Cody, [facility] - 11/26/2024 11:30 AM Elisa Bowling [place] - 10/25/2024 10:30 AM EST Note Date & Type Note Facility 01-23-2025 History of Presen t illness Narrative Reason for Appointment: Patient ID: Shilpi Ware is a 19 y.o. female who presents for Routine Visit Patient presents today for Return OB appointment. MEDICATIONS No current outpatient medications ALLERGIES Allergies Allergen Reactions Coconut (Cocos Nucifera) GI intolerance Other Unknown METAL Latex Unknown and Rash PROBLEMS Active Ambulatory Problems Diagnosis Date Noted 15 weeks gestation of 11/26/2024 Near syncope 12/30/2024 20 weeks gestation of 12/30/2024 Resolved Ambulatory Problems Diagnosis Date Noted No [...] Exam Constitutional: Appearance: Normal appearance. She is normal weight. HENT: Head: Normocephalic. Cardiovascular: Rate and Rhythm: Normal rate. Pulses: Normal pulses. Pulmonary: Effort: Pulmonary effort is normal. Breath sounds: Normal breath sounds. Abdominal: Palpations: Abdomen is soft. Musculoskeletal: General: Normal range of motion. Neurological: General: No focal deficit present. Mental Status: She is alert and oriented to person, place, and time. Psychiatric: Mood and Affect: Mood normal. Behavior: Behavior normal. Thought Content: Thought content normal. Judgment: Judgment normal. Vitals and nursing note reviewed. Vitals: Estimated body mass index is 22.66 kg/m as calculated from the following: Height as of 11/27/23: 5' 4 . Weight as of this encounter: 132 lb. BP: 120/68 Patient's last menstrual period was 07/15/2024 (approximate). ASSESSMENT & PLAN ICD-10-CM 1. 24 weeks gestation of Z3A.24 POCT urinalysis dipstick manually resulted 2. Third trimester Z34.93 POCT urinalysis dipstick manually resulted 3. Diabetes mellitus screening Z13.1 CBC Glucose tolerance, 1 hour CBC Glucose tolerance, 1 hour Return OB: Patient presents today for a routine obstetrics appointment. Patient is currently 24w0d . Patient states she is doing well but has complaints of being tired due to current . Patient has verbalizes frequent movement. Orders Placed This Encounter Procedures CBC Glucose tolerance, 1 hour POCT urinalysis dipstick manually resulted Follow Up: Patient is to return to office in 4 week for routine OB appointment. Documented by GEORGI Presley on behalf of: Ho Espitia DO documented in this encounter [facility] 12-30-2024 History of Presen t illness Narrative Reason for Appointment: Patient ID: Shilpi M Chaz is a 19 y.o. female who presents [...] nursing note reviewed. Exam conducted with a seat covers trimmer present. Vitals: Estimated body mass index is [...] ECHO and EKG will be sent to [facility] to be scheduled. Will also send orders for TSH to be drawn every 4 weeks throughout and CBC will also need to be drawn. Patients urine will be sent out for culture today with sample that was provided in office. Documented by Reyna Leal LPN on behalf of: Ho Espitia DO documented in this encounter [facility] 11-26-2024 History of Presen t illness Narrative [...] nursing note reviewed. Exam conducted with a seat covers trimmer present. Vitals: Estimated body mass index is [...] or undercooked meat, and stay away from [facility]. Patient has been consulted regarding any further [...] Ho Espitia DO documented in this encounter [facility] 10-25-2024 History of Presen t illness Narrative [...] Fidelia Bowling MA documented in this encounter [facility] 07-23-2024 History of Presen t illness Narrative [...] nursing note reviewed. Exam conducted with a seat covers trimmer present. Vitals: Estimated body mass index is 20.08 kg/m as calculated from the following: Height as of 24: 5' 4 . Weight as of this [...] Ho Espitia DO documented in this encounter [facility] 01-11-2023 Evaluation note Encounter Date Diagnosis Assessment Notes Dec, Acute effusion of left ear (ICD-10 - H65.192) try this medication and referral sent to ENT since conservative treatment has been used by urgent care and PCP without improvement of symptoms. [facility] 01-24-2023 Evaluation note* Encounter Date Diagnosis [...] understanding and is agreeable to treatment plan [facility] 08-15-2022 Evaluation note* Encounter Date Diagnosis Assessment Notes Treatment Notes Treatment Clinical Notes Jun, Tooth infection (ICD-10 - K04.7) Take medications as directed.Highly encourage patient to contact dentist CARLY for further treatment of infection. Ok to take OTC medications like ibuprofen with prescriptions [facility] 06-16-2022 Chana Ware is here for consultation at the request of Iker Olivas MD for: Constipation ---History from parent and patient History of Present Illness My advice was requested by Iker Olivas MD. She is accompanied by her mother and sibling(s). No spanish language lecturer was used. ABD pain - Patient has [...] 40mg per day Mirala (more content not included)...[facility]04-13-2022 Hospital Discharge instructions Follow Up Care 03/02/2022 15:03:01 With:Iker OLIVAS MD, PED Address: [address] [place] [address]- When:03/30/2022 Comments:recheck dyspnea/chest pain [facility] 04-13-2022 Hospital Discharge instructions Follow Up Care 03/02/2022 09:25:52 With:Iker OLIVAS MD, PED Address: [address] [place] [address]- When:03/16/2022 Comments:recheck SOB [facility] 04-08-2022 Evaluation note* Encounter Date Diagnosis Assessment [...] 3 days. Feb, Bronchitis (ICD-10 - J40) [facility] 04-05-2022 Hospital Discharge instructions Follow Up Care 02/22/2022 08:51:47 With:Marli Rosenberg MD Address: When: Unknown Comments:f/up in 2 months for recheck anxiety [facility] 02-21-2022 Evaluation note* Encounter Date Diagnosis Assessment [...] we will help you get into specialist. [facility] 12-15-2021 Evaluation note* Encounter Date Diagnosis Assessment Notes Treatment Notes Treatment Clinical Notes Oct, Sore throat (ICD-10 - J02.9) Oct, Viral pharyngitis (ICD-10 - J02.9) Drink plenty of fluids, get plenty of rest. Tylenol or Motrin for aches pains or fevers. Follow-up with family physician if no improvement in 2 to 3 days for [facility] Other 10-02-2013 History general Narrative - Reported* Type Description Date Medical History eczema Medical History reactive airway Medical History Radial fracture (resolved 2012) Medical History Strep throat (resolved ) Surgical History dental reconstruction age 1 [facility] Other 10-02-2013 History general Narrative - Reported* Type Description Date Medical History eczema Medical History reactive airway Medical History Radial fracture (resolved 2012) Medical History Strep throat (resolved ) Surgical History dental reconstruction age 1 Surgical History Cyst Removal Left eye 08/2022 [facility] Other Evaluation + Plan note Referrals to Other Providers Referred by: Chet DENTON, Marli ENRIQUE [facility] Evaluation + Plan note Future Appointments Appointment Date:03/16/2022 02:00:00 PM Scheduled Provider:Iker OLIVAS MD Location:[facility] [place] Appointment Type:Peds OV 10 Referrals to Other Providers Referred by: Iker OLIVAS MD [facility] Evaluation + Plan note Future Appointments Appointment Date:03/30/2022 08:40:00 AM Scheduled Provider:Iker OLIVAS MD Location:[facility] Appointment Type:Peds OV 10 [facility] Evaluation noteNo assessment information available [facility] Work Phone: evaluation note* Diagnosis Onset Date Resolution Status Acute UTI (urinary tract infection) acute [facility] Work Phone: Evaluation note* Diagnosis Encounter for infertility PCOS (polycystic ovarian syndrome) Polycystic ovaries documented in this encounter [facility]* Diagnosis Missed menses , unspecified gestational age Encounter for supervision of normal first in first trimester 11 weeks gestation of documented in this encounter [facility]* Diagnosis 15 weeks gestation of Screening, , for anatomic survey Encounter for anatomic survey documented in this encounter [facility] Healthcare[facility] note* Diagnosis Third trimester state, incidental 20 weeks gestation of Near syncope UTI symptoms Lightheadedness Dizziness and giddiness Other headache syndrome documented in this encounter [facility]* Diagnosis 24 weeks gestation of Third trimester state, incidental Diabetes mellitus screening Screening for diabetes mellitus documented in this encounter [facility] HealthcareHospital course Narrative No data available for this section [facility] Reason for Referral Reason *FU 02/02 Middle e ar effusion that is persisting Diagnosis 1 Acute effusion of le ft ear (H65.192) Referral Organization [facility] Referring Provider First Name Lynette Referring Provider Last Name Conrado Referring Provider Specialty Nurse Pract itioner Referred Organization [facility] Referred Provider Fiordaliza Akers Referred Address ,[place], [place],[address] Referred Provider Specialty Ear, Nose an d Throat Referral Priority Routine General Notes Betzy Lagunan 023 07:30:08 AM >Received today and waiting for office notes to be locked before sending referral. Will not be sending insurance card with referral since there was no updated card in chart Betzy Lagunan 01/12/2023 01:30:59 PM >Dr. Akers request us [...] Reason Comments Amenorrhea Reason Comments Routine Visit Reason Comments Routine Visit Care Teams (unrecognized [...] section and content) DATE CREATED AUTHOR 03/02/2023 [facility] DATE CREATED AUTHOR AUTHOR'S ORGANIZ ATION 03/25/2023 [facility] DATE CREATED AUTHOR AUTHOR'S ORGANIZ ATION 12/30/[address] [facility] DATE CREATED AUTHOR AUTHOR'S ORGANIZ ATION 01/10/2025 [facility] DATE CREATED AUTHOR AUTHOR'S ORGANIZ ATION 01/25/2025 [facility] EPIC FOR RECORDS PERTAINING TO PATIENTS WHO ARE [...] BE BASED ON THE PRIMARY CLINICAL RECORDS. [facility] provides no warranty or guarantee of the accuracy or completeness of information in this document.
== END 2025-01-30 10:03 | disposition home or self-care (01) ==
LOC: CARD 10:02
PROVIDERS: PCP Nurse Practitioner Family; Visit Provider Obstetrics & Gynecology
DX: R55 Syncope and collapse (principal); R42 Dizziness and giddiness; Z13.1 Encounter for screening for diabetes mellitus
CPT/HCPCS: 36415; 82950; 85025; 93306

== ENCOUNTER 2025-01-30 10:43 | Outpatient (OUT) | payer OTHER, SELFPAY ==
--- OUTSIDE RECORDS SUMMARY | 2025-01-30 10:47 | XMS_ITS | CCD ---
Author Organization [facility] Care Team Providers Care Rock Breaker Name Role Phone Iker OLIVAS Primary Care Physician [phone] Maddie Dickson Unavailable Lynette Flores Unavailable MD [...] SANTANA Consulting Unavailable TRINITY Almendarez Attending Provider [phone] Unavailable Primary Care Provider UnavailIsabella Christensen Attending Unavailable Isabella Almendarez Admitting Unavailable NON STAFF Primary Care Unavailable HO ESPITIA Referring Unavailable HO ESPITIA Attending Unavailable HO ESPITIA Attending Unavailable HO ESPITIA Attending Unavailable HO ESPITIA Attending Unavailable Allergies Allergy Classification Reported Allergen(s) Allergy Type Date of Onset Reaction(s) Facility (20 sources) Latex; Translations: [LATEX] Drug allergy 9 Eruption of skin (disorder), Unknown, Rash [facility] (3 sources) contact metals 1 Drug allergy Eruption of skin (disorder) [facility] Comment on above: family states pt dev elops rash to alumininum in deoderant, fake jewelry (possibly kp?), etc (3 sources) Coconut extract; Translations: [coconut] Drug Allergy 2 Nausea [facility] (1 source) Iron; Translations: [IRON] Drug Allergy 2 [facility] (2 sources) contact metal agent Drug allergy (disorder) 4 Rash [facility] (1 source) contact metals; Translations: [contact metals] Propensity to adverse reactions (disorder) [facility] Repository (17 sources) Coconut extract Drug Allergy 4 GI intolerance [facility] (18 sources) Other Propensity to adverse reactions 9 Unknown [facility] (1 source) contact metal agent Drug allergy (disorder) 4 [facility] Repository Medications Current Medications Medication Drug Class(es) [...] day(s), # 28 tab(s), Refills(s) 0, Pharmacy: [facility]/pharmacy #[id number], 161, cm, 03/16/22 14:08:00 EDT, Height/Length Dosing, 55.9, kg, 03/16/22 14:08:00 EDT, Weight Dosing Start Date: 03/16/22 Stop Date: 03/30/22 Status: Ordered cephalexin 500 mg oral capsule (2 sources) Cephalosporin Antibacterial Start: 04-18-2024 take 500 mg by mouth three times daily Cephalexin Active 500 MG PO Three times daily 09 06April 18, 2024 12:00am Start: 02-25-2022 take 1 capsule by mo [facility] every eight hours Cephalexin 500 MG 1 capsule Orally tid for 10 day(s) Feb, Active cetirizine hydrochloride 10 mg oral tablet (4 sources) Histamine-1 Receptor Antagonist Start: 01-11-2023 take 1 tablet by mouth every twenty-four hours Cetirizine HCl 10 MG 1 tablet Orally Once a day for 30 day(s) Dec, Active Start: 03-02-2022 [facility] daily as needed cetirizine 10 mg Tab 10 mg = 1 tab(s), Oral, Daily, PRN for allergy symptoms, # 30 tab(s), Refills(s) 0, Pharmacy: [facility]/pharmacy #[id number], 164, cm, 03/02/22 14:37:00 [...] qPM, # 30 tab(s), Refills(s) 0, Pharmacy: [facility]/pharmacy #[id number], 165.5, cm, 02/22/22 13:27:00 [...] UA Negative Negative - 4(70) +++ mg/dL [facility] Blood, UA Positive Negative - 50 Rambo/mcL [facility] Comment on above: trace-intact Clarity, UA Clear [facility] re Color, UA Yellow [facility] e Glucose, UA Negative Negative - 1999(110) ++++ mg/dL [facility] Interpretation and review of laboratory results Abnormal [facility] re Ketones, UA Negative Negative - 160(16) ++++ mg/dL [facility] Leukocytes, UA Trace Negative - 500+++ Charity/mcL [facility] Nitrite, UA Negative Negative - Positive [facility] pH, UA 6 5 - 9 [facility] e Protein, UA Negative Negative - 1999(20) ++++ mg/dL [facility] Spec Grav, UA 1.025 1 - 1.03 [facility] Urobilinogen, UA 0.2 0.2 - 12 mg/dL [facility] ALL CBC WITH AUTO DIFFon BASOPHILS ABSOLUTE AUTO 0 [facility] Basophils/100 WBC (Bld) 0.3 % 0.2 - 2.0 % [facility] Eosinophils/100 WBC (Bld) 0.3 % Low 0.9 - 7.0 % [facility] Erythrocyte distribution width (RBC) [Ratio] 13 % 11.0 - 15.0 % [facility] Hematocrit (Bld) [Volume fraction] 34.9 % Low 36.0 - 48.0 % [facility] e Hemoglobin (Bld) [Mass/Vol] 11.9 g/dL Low 12.0 - 16.0 g/dL [facility] IMMATURE GRANULOCYTES ABS AUTO 0.07 High [facility] Immature granulocytes/100 WBC (Bld) 0.6 % High 0.0 - 0.5 % [facility] Interpretation and review of laboratory results Abnormal [facility] LYMPHOCYTES ABSOLUTE AUTO 1.5 [facility] Lymphocytes/100 WBC (Bld) 12.8 % Low 20.5 - 60.0 % [facility] MCH (RBC) [Entitic mass] 28.6 pg 26.7 - 34.0 pg [facility] MCHC (RBC) [Mass/Vol] 34.1 g/dL 29.9 - 35.2 g/dL [facility] MCV (RBC) [Entitic vol] 83.9 fL 81.0 - 99.0 fL [facility] MONOCYTES ABSOLUTE AUTO 0.7 [facility] Monocytes/100 WBC (Bld) 5.8 % 1.7 - 12.0 % [facility] NEUTROPHILS ABSOLUTE AUTO 9.6 High [facility] Neutrophils/100 WBC (Bld) 80.2 % High 43.0 - 75.0 % [facility] Platelet mean volume (Bld) [Entitic vol] 9.1 fL Low 9.5 - 13.5 fL [facility] TBH EO # 0 [facility] e TBH PLT 316 [facility] TB RBC 4.16 Low [facility] e TB WBC 12 High [facility] e [facility] e No Panel Informationon 01-01 STAPHYLOCOCCUS EPIDERMIDIS, HAEMOLYTICUS, LUGDUNENSIS, SAPROPHYTICUS (URINA 0 [facility] STAPHYLOCOCCUS EPIDERMIDIS, HAEMOLYTICUS, LUGDUNENSIS, SAPROPHYTICUS (URINA Not detected [facility] URINARY TRACT INFECTION (HTR X)on 01-01-2025 ACINETOBACTER BAUMANII 0 [facility] ACINETOBACTER BAUMANII Not detected [facility] TYLER ALBICANS, PARAPSILOSIS, TROPICALIS 0 [facility] TYLER ALBICANS, PARAPSILOSIS, TROPICALIS Not detected [facility] [...] II, MD, PHD at 01-Jan-2025 08:23:57 AM [facility] Normal Not Available Comment on above: Order Comment: US OB ANATOMY SINGLE W US OB CERVICAL LENGTH Estimated Date of Delivery: None noted. Gestational Age as of 11/26/2024: Unknown Urinalysis macro (dipstick) panel (U)on 11-26-2024 Bilirubin, UA Negative Negative - 4(70) +++ mg/dL [facility] Blood, UA Negative Negative - 50 Rambo/mcL [facility] Clarity, UA Clear [facility] Color, UA Yellow [facility] Glucose, UA Negative Negative - 1999(110) ++++ mg/dL [facility] Interpretation and review of laboratory results Normal [facility] Ketones, UA Negative Negative - 160(16) ++++ mg/dL [facility] Leukocytes, UA Negative Negative - 500+++ Charity/mcL [facility] Nitrite, UA Negative Negative - Positive [facility] pH, UA 6 5 - 9 [facility] Protein, UA Negative Negative - 1999(20) ++++ mg/dL [facility] Spec Grav, UA 1.025 1 - 1.03 [facility] Urobilinogen, UA 0.2 0.2 - 12 mg/dL [facility] ALL CBC WITH AUTO DIFFon BASOPHILS ABSOLUTE AUTO 0 [facility] Basophils/100 WBC (Bld) 0.2 % 0.2 - 2.0 % [facility] Eosinophils/100 WBC (Bld) 0.2 % Low 0.9 - 7.0 % [facility] Erythrocyte distribution width (RBC) [Ratio] 13.5 % 11.0 - 15.0 % [facility] Hematocrit (Bld) [Volume fraction] 36.7 % 36.0 - 48.0 % [facility] e Hemoglobin (Bld) [Mass/Vol] 12.5 g/dL 12.0 - 16.0 g/dL [facility] IMMATURE GRANULOCYTES ABS AUTO 0.04 High [facility] Immature granulocytes/100 WBC (Bld) 0.3 % 0.0 - 0.5 % [facility] Interpretation and review of laboratory results Abnormal [facility] re LYMPHOCYTES ABSOLUTE AUTO 1.7 [facility] Lymphocytes/100 WBC (Bld) 14 % Low 20.5 - 60.0 % [facility] MCH (RBC) [Entitic mass] 27.9 pg 26.7 - 34.0 pg [facility] MCHC (RBC) [Mass/Vol] 34.1 g/dL 29.9 - 35.2 g/dL [facility] MCV (RBC) [Entitic vol] 81.9 fL 81.0 - 99.0 fL [facility] MONOCYTES ABSOLUTE AUTO 0.7 [facility] Monocytes/100 WBC (Bld) 5.6 % 1.7 - 12.0 % [facility] NEUTROPHILS ABSOLUTE AUTO 9.7 High [facility] Neutrophils/100 WBC (Bld) 79.7 % High 43.0 - 75.0 % [facility] Platelet mean volume (Bld) [Entitic vol] 9.2 fL Low 9.5 - 13.5 fL [facility] TBH EO # 0 [facility] TBH PLT 314 [facility] TBH RBC 4.48 [facility] TBH WBC 12.2 High [facility] Healthcar e [facility] e HCG ( test) Ql (U)o n 10-25-2024 Preg Test, Ur Positive Negative [facility] Urinalysis macro (dipstick) panel (U)on 10-25-2024 Bilirubin, UA Negative Negative - 4(70) +++ mg/dL [facility] Blood, UA Negative Negative - 50 Rambo/mcL [facility] Clarity, UA Clear [facility] re Color, UA Yellow [facility] e Glucose, UA Negative Negative - 1999(110) ++++ mg/dL [facility] Interpretation and review of laboratory results Normal [facility] re Ketones, UA Negative Negative - 160(16) ++++ mg/dL [facility] Leukocytes, UA Negative Negative - 500+++ Charity/mcL [facility] Nitrite, UA Negative Negative - Positive [facility] pH, UA 6 5 - 9 [facility] Protein, UA Negative Negative - 1999(20) ++++ mg/dL [facility] Spec Grav, UA 1.025 1 - 1.03 [facility] Urobilinogen, UA 0.2 0.2 - 12 mg/dL [facility] ecoATM e TBH PREG QUANT HCGon 09-14-2 024 HCG QUANTITATIVE 8309 mIU/mL [facility] lthcare Comment on above: 5-50 0.2-1 WEEK 50-500 1-2 WEEKS 100-5,000 2-3 WEEKS 500-10,000 3-4 WEEKS 1,000-50,000 4-5 WEEKS 10,000-100,000 5-6 WEEKS 15,000-200,000 6-8 WEEKS 10,000-100,000 2-3 [facility] TBH PREG QUANT HCGon 09-12-2 024 HCG QUANTITATIVE 3351 mIU/mL [facility] Comment on above: 5-50 0.2-1 WEEK 50-500 1-2 WEEKS 100-5,000 2-3 WEEKS 500-10,000 3-4 WEEKS 1,000-50,000 4-5 WEEKS 10,000-100,000 5-6 WEEKS 15,000-200,000 6-8 WEEKS 10,000-100,000 2-3 [address] [facility] ALL CBC WITH AUTO DIFFon BASOPHILS ABSOLUTE AUTO 0.0 [facility] Basophils/100 WBC (Bld) 0.3 % 0.2 - 2.0 % [facility] Eosin[facility] WBC (Bld) 0.8 % Low 0.9 - 7.0 % [facility] Erythrocyte distribution width (RBC) [Ratio] 13.0 % 11.0 - 15.0 % [facility] Hematocrit (Bld) [Volume fraction] 37.4 % 36.0 - 48.0 % [facility] Hemoglobin (Bld) [Mass/Vol] 12.1 g/dL 12.0 - 16.0 g/dL [facility] IMMATURE GRANULOCYTES ABS AUTO 0.02 [facility] Immature granulocytes/100 WBC (Bld) 0.3 % 0.0 - 0.5 % [facility] Interpretation and review of laboratory results [facility] LYMPHOCYTES ABSOLUTE AUTO 1.5 [facility] Lymphocytes/100 WBC (Bld) 24.5 % 20.5 - 60.0 % [facility] MCH (RBC) [Entitic mass] 26.5 pg Low 26.7 - 34.0 pg [facility] MCHC (RBC) [Mass/Vol] 32.4 g/dL 29.9 - 35.2 g/dL [facility] MCV (RBC) [Entitic vol] 81.8 fL 81.0 - 99.0 fL [facility] MONOCYTES ABSOLUTE AUTO 0.3 [facility] Monocytes/100 WBC (Bld) 4.5 % 1.7 - 12.0 % [facility] NEUTROPHILS ABSOLUTE AUTO 4.1 [facility] Neutrophils/100 WBC (Bld) 69.6 % 43.0 - 75.0 % [facility] Platelet mean volume (Bld) [Entitic vol] 9.5 fL 9.5 - 13.5 fL [facility] TBH EO # 0.1 [facility] TBH PLT 318 [facility] TB[facility] RBC 4.57 [facility] TBH WBC 6.0 [facility] Urine Cultureon 04-18-2024 Bacteria identified Cx Nom (U) 50,000 colonies/ml mixed bacterial skin contaminants 2 Days PERFORMED BY: [facility] [place] [address] PATHOLOGIST [employer] MADAN TRIVEDI M.D. Normal [facility] Comment on above: Performed By: #### C UU #### [facility] [address] Physician Referralon 024 Physician Referral [id number] Normal [facility] ER URINE PROFILEon 3 Bilirubin Ql (U) Negative Normal NEGATIVE [facility] Comment on above: Performed By: #### E RUR, PREGU #### [facility] [address] [place] [address] Dr. Mikala Ramsay Clarity (U) CLEAR Normal CLEAR [facility] Comment on above: Performed By: #### E RUR, PREGU #### [facility] [address] [place] [address] Dr. Mikala Ramsay Color (U) LT. YELLOW Normal YELLOW [facility] Comment on above: Performed By: #### E RUR, PREGU #### [facility] [address] [place] [address] Dr. Mikala SPRAGUE A micrscopic examination will be performed if indicated. Normal [facility] Comment on above: Performed By: #### E RUR, PREGU #### [facility] [address] [place] [address] Dr. Mikala Ramsay Glucose Ql (U) Negative Normal NEGATIVE [facility] [place] Comment on above: Performed By: #### E RUR, PREGU #### [facility] [address] [address] [address] Mikala Ramsay Hemoglobin Ql (U) Negative Normal NEGATIVE [facility] Comment on above: Performed By: #### E RUR, PREGU #### [facility] [address] [place] [address] Dr. Mikala Ramsay Ketones Ql (U) Negative Normal NEGATIVE [facility] Comment on above: Performed By: #### E RUR, PREGU #### [facility] [address] [place] [address] Dr. Mikala Ramsay LEUKOCYTES Negative Normal NEGATIVE [facility] Comment on above: Performed By: #### E RUR, PREGU #### [facility] [address] [place] [address] Dr. Mikala Ramsay Nitrite Ql (U) Negative Normal NEGATIVE [facility] [place] Comment on above: Performed By: #### E RUR, PREGU #### [facility] [address] [place] [address] Dr. Mikala Ramsay pH (U) 8.0 [pH] Normal 5-[address] [facility] Comment on above: Performed By: #### E RUR, PREGU #### [facility] [address] [place] [address] Dr. Mikala Ramsay SPEC GRAVITY 1.015 Normal 1.005-<=1.025 The [facility] Comment on above: Performed By: #### E RUR, PREGU #### [facility] [address] [place] [address] Dr. Mikala Ramsay UA PROTEIN Negative Normal NEGATIVE/ TRACE [facility] Comment on above: Performed By: #### Kevon RUR, PREGU #### [facility] [address] [place] [address] Dr. Mikala Ramsya UR MICRO IND NOT INDICATED Normal [facility] Comment on above: Performed By: #### E RUR, PREGU #### [facility] [address] [place] [address] Dr. Mikala Ramsay Urobilinogen Qn (U) 0.2 {Jose'U}/dL Normal 0.2 - 1. 0 [facility] Comment on above: Performed By: #### E RUR, PREGU #### [facility] [address] [place] [address] Dr. Mikala Ramsay URon 11-25-2022 , QUAL Negative Normal NEGATIVE [facility] Comment on above: Performed By: #### E RUR, PREGU #### [facility] [address] [place] [address] Dr. Mikala Ramsay US PELVIS TRANSVAGon 023 [...] JONI MORALES Date: 2022-11-25 17:05 Normal [facility] XR KUB 1 VIEWon 11-25-2022 XR [...] DOMO AN Date: 2022-11-25 14:56 Normal [address] [facility] CBC AUTO DIFFon 09-06-2022 BASO # 0.0 103/ul Normal 0.0-0.1 [facility] Comment on above: Performed By: #### C BC #### [facility] [address] [place] [address] Dr. Mikala Ramsay Basophils/100 WBC (Bld) 0.3 % Normal 0.2-2.0 [facility] Comment on above: Performed By: #### C BC #### [facility] [address] [address] [address] Mikala Ramsay EO # 0.0 103/ul Normal 0.0-0.7 [facility] Comment on above: Performed By: #### C BC #### [facility] [address] [address] [address] Mikala Ramsay Eosinophils/100 WBC (Bld) 0.6 % Critically low 0.9-7.0 [facility] Comment on above: Performed By: #### C BC #### [facility] [address] [place] [address] Dr. Mikala Ramsay Erythrocyte distribution width (RBC) [Ratio] 14.0 % Normal 11.0-15.0 [facility] Comment on above: Performed By: #### C BC #### [facility] [address] [place] [address] Dr. Mikala Ramsay Hematocrit (Bld) [Volume fraction] 38.7 % Normal 36.0-48.0 [facility] Comment on above: Performed By: #### C BC #### [facility] [address] [place] [address] Dr. Mikala Ramsay Hemoglobin (Bld) [Mass/Vol] 12.5 g/dL Normal 12.0-16.0 [facility] Comment on above: Performed By: #### C BC #### [facility] [address] [place] [address] Dr. Mikala Ramsay IG # 0.02 10e3/ul Normal 0.00-0.03 [facility] Comment on above: Performed By: #### C BC #### [facility] [address] [place] [address] Dr. Mikala Ramsay IG % 0.3 % Normal 0.0-0.5 [facility] Comment on above: Performed By: #### C BC #### [facility] [address] [place] [address] Dr. Mikala Ramsay LYMPH # 1.2 103/ul Normal 1.2-3.8 [facility] Comment on above: Performed By: #### C BC #### [facility] [address] [place] [address] Dr. Mikala Ramsay Lymphocytes/100 WBC (Bld) 17.4 % Critically low 20.5-60.0 [facility] Comment on above: Performed By: #### C BC #### [facility] [address] [place] [address] Dr. Mikala Ramsay MANUAL DIFF REQ NO Normal [facility] Comment on above: Performed By: #### C BC #### [facility] [address] [address] [address] Mikala Ramsay MCH (RBC) [Entitic mass] 26.0 pg Critically low 26.7-34.0 [facility] Comment on above: Performed By: #### C BC #### [facility] [address] [place] [address] Dr. Mikala Ramsay MCHC (RBC) [Mass/Vol] 32.3 g/dL Normal 29.9-35.2 [facility] Comment on above: Performed By: #### C BC #### [facility] [address] [place] [address] Dr. Mikala Ramsay MCV (RBC) [Entitic vol] 80.5 fL Critically low 81.0-99.0 [facility] Comment on above: Performed By: #### C BC #### [facility] [address] [place] [address] Dr. Mikala Ramsay MONO # 0.4 103/ul Normal 0.3-0.8 [facility] Comment on above: Performed By: #### C BC #### [facility] [address] [place] [address] Dr. Mikala Ramsay Monocytes/100 WBC (Bld) 5.9 % Normal 1.7-12.0 [facility] Comment on above: Performed By: #### C BC #### [facility] [address] [place] [address] Dr. Mikala Ramsay NEUT # 5.0 103/ul Normal 1.4-6.5 [facility] Comment on above: Performed By: #### C BC #### [facility] [address] [place] [address] Dr. Mikala Ramsay Neutrophils/100 WBC (Bld) 75.5 % Critically high 43.0-75.[address] [facility] Comment on above: Performed By: #### C BC #### [facility] [address] [place] [address] Dr. Mikala Ramsay Platelet mean volume (Bld) [Entitic vol] 9.2 fL Critically low 9.5-13.5 [facility] Comment on above: Performed By: #### C BC #### [facility] [address] [address] [address] Mikala Ramsay PLT 286 103/ul Normal 150-450 [facility] Comment on above: Performed By: #### C BC #### [facility] [address] [place] [address] Dr. Mikala Ramsay RBC 4.81 106/ul Normal 4.20-5.40 [facility] Comment on above: Performed By: #### C BC #### [facility] [address] [address] [address] Mikala Ramsay WBC 6.7 103/ul Normal 4.0-11.0 [facility] Comment on above: Performed By: #### C BC #### [facility] [address] [place] [address] Dr. Mikala Ramsay PREG HCG QUALon 09-06-2022 , QUAL Negative Normal NEGATIVE [facility] Comment on above: Performed By: #### P REG #### [facility] [address] [place] [address] Dr. Mikala Ramsay PROF CHEM 8 (BAS METB)on Anion gap [Moles/Vol] 11.1 mmol/L Normal [facility] Comment on above: Performed By: #### B MP #### [facility] [address] [place] [address] Dr. Mikala Ramsay Calcium [Mass/Vol] 9.0 mg/dL Normal 8.5-10.1 [facility] Comment on above: Performed By: #### B MP #### [facility] [address] [place] [address] Dr. Mikala Ramsay Chloride [Moles/Vol] 106 mmol/L Normal 98-[address] [facility] Comment on above: Performed By: #### B MP #### [facility] [address] [place] [address] Dr. Mikala Ramsay CO2 [Moles/Vol] 25.6 mmol/L Normal 21.0-32.0 [facility] Comment on above: Performed By: #### B MP #### [facility] [address] [address] [address] Mikala Ramsay Creatinine [Mass/Vol] 0.72 mg/dL Normal 0.55-1.02 [facility] Comment on above: Performed By: #### B MP #### [facility] [address] [address] [address] Mikala Ramsay EGFR-AF ESTONIAN >60 Normal >=60 [facility] Comment on above: Performed By: #### B MP #### [facility] [address] [address] [address] Mikala Ramsay EGFR-NON AF ESTONIAN >60 Normal >=60 [facility] Comment on above: Performed By: #### B MP #### [facility] [address] [place] [address] Dr. Mikala Ramsay Glucose [Mass/Vol] 84 mg/dL Normal 74-106 [facility] Comment on above: Performed By: #### B MP #### [facility] [address] [place] [address] Dr. Mikala Ramsay Potassium [Moles/Vol] 3.7 mmol/L Normal 3.5-5.[address] [facility] Comment on above: Performed By: #### B MP #### [facility] [address] [place] [address] Dr. Mikala Ramsay Sodium [Moles/Vol] 139 mmol/L Normal 136-145 [facility] Comment on above: Performed By: #### B MP #### [facility] [address] [place] [address] Dr. Mikala Ramsay Urea nitrogen [Mass/Vol] 10.0 mg/dL Normal 6.4-19.[address] [facility] Comment on above: Performed By: #### B MP #### [facility] [address] [place] [address] Dr. Mikala Ramsay Urea nitrogen/Creatinine [Mass ratio] 13.9 mg/mg Normal [facility] Comment on above: Performed By: #### B MP #### [facility] [address] [place] [address] Dr. Mikala Ramsay CBC AUTO DIFFon 08-16-2022 BASO # 0.0 103/ul Normal 0.0-0.1 [facility] Comment on above: Performed By: #### C BC #### [facility] [address] [place] [address] Dr. Mikala Ramsay Basophils/100 WBC (Bld) 0.6 % Normal 0.2-2.[address] [facility] Comment on above: Performed By: #### C BC #### [facility] [address] [place] [address] Dr. Mikala Ramsay EO # 0.1 103/ul Normal 0.0-0.[address] [facility] Comment on above: Performed By: #### C BC #### [facility] [address] [place] [address] Dr. Mikala Ramsay Eosinophils/100 WBC (Bld) 1.3 % Normal 0.9-7.[address] [facility] Comment on above: Performed By: #### C BC #### [facility] [address] [place] [address] Dr. Mikala Ramsay Erythrocyte distribution width (RBC) [Ratio] 14.5 % Normal 11.0-15.0 [facility] Comment on above: Performed By: #### C BC #### [facility] [address] [place] [address] Dr. Mikala Ramsay Hematocrit (Bld) [Volume fraction] 37.6 % Normal 36.0-48.0 [facility] Comment on above: Performed By: #### C BC #### [facility] [address] [place] [address] Dr. Mikala Ramsay Hemoglobin (Bld) [Mass/Vol] 12.2 g/dL Normal 12.0-16.[address] [facility] Comment on above: Performed By: #### C BC #### [facility] [address] [place] [address] Dr. Mikala Ramsay IG # 0.02 10e3/ul Normal 0.00-0.[address] [facility] Comment on above: Performed By: #### C BC #### [facility] [address] [place] [address] Dr. Mikala Ramsay IG % 0.3 % Normal 0.0-0.5 [facility] Comment on above: Performed By: #### C BC #### [facility] [address] [place] [address] Dr. Mikala Ramsay LYMPH # 2.1 103/ul Normal 1.2-3.8 [facility] Comment on above: Performed By: #### C BC #### [facility] [address] [place] [address] Dr. Mikala Ramsay Lymphocytes/100 WBC (Bld) 33.4 % Normal 20.5-60.0 [facility] Comment on above: Performed By: #### C BC #### [facility] [address] [place] [address] Dr. Mikala Ramsay MANUAL DIFF REQ NO Normal [facility] Comment on above: Performed By: #### C BC #### [facility] [address] [place] [address] Dr. Mikala Ramsay MCH (RBC) [Entitic mass] 26.2 pg Critically low 26.7-34.0 [facility] Comment on above: Performed By: #### C BC #### [facility] [address] [place] [address] Dr. Mikala Ramsay MCHC (RBC) [Mass/Vol] 32.4 g/dL Normal 29.9-35.2 [facility] Comment on above: Performed By: #### C BC #### [facility] [address] [place] [address] Dr. Mikala Ramsay MCV (RBC) [Entitic vol] 80.7 fL Critically low 81.0-99.0 [facility] Comment on above: Performed By: #### C BC #### [facility] [address] [place] [address] Dr. Mikala Ramsay MONO # 0.4 103/ul Normal 0.3-0.8 [facility] Comment on above: Performed By: #### C BC #### [facility] [address] [place] [address] Dr. Mikala Ramsay Monocytes/100 WBC (Bld) 6.2 % Normal 1.7-12.0 [facility] Comment on above: Performed By: #### C BC #### [facility] [address] [place] [address] Dr. Mikala Ramsay NEUT # 3.7 103/ul Normal 1.4-6.5 [facility] Comment on above: Performed By: #### C BC #### [facility] [address] [address] [address] Mikala Ramsay Neutrophils/100 WBC (Bld) 58.2 % Normal 43.0-75.0 [facility] Comment on above: Performed By: #### C BC #### [facility] [address] [place] [address] Dr. Mikala Ramsay Platelet mean volume (Bld) [Entitic vol] 9.3 fL Critically low 9.5-13.5 [facility] Comment on above: Performed By: #### C BC #### [facility] [address] [place] [address] Dr. Mikala Ramsay PLT 310 103/ul Normal 150-[address] [facility] Comment on above: Performed By: #### C BC #### [facility] [address] [place] [address] Dr. Mikala Ramsay RBC 4.66 106/ul Normal 4.20-5.[address] [facility] Comment on above: Performed By: #### C BC #### [facility] [address] [place] [address] Dr. Mikala Ramsay WBC 6.3 103/ul Normal 4.0-11.0 [facility] Comment on above: Performed By: #### C BC #### [facility] [address] [place] [address] Dr. Mikala Ramsay XR elbow LT min 3V*on 2021 XR elbow LT min 3V* [facility] Other XR elbow LT min 3V* [facility] [employer] Other XR elbow LT min 3V* [address] [employer] Other XR elbow LT min 3V* [place]OL[place] Arevalo [address] [facility] Other XR elbow LT min 3V* XRay Report [facility] Other XR elbow LT min 3V* Signed [facility] Other XR elbow LT min 3V* Patient: Shilpi Ware MR#: [id number] [facility] Other XR elbow LT min 3V* : 2005 Acct:[id number] [facility] Other XR elbow LT min 3V* Age/Sex: 16 / F ADM Date: 01/10/22 [facility] Other XR elbow LT min 3V* Loc: XDUCLY Room: Type: [facility] CLI [facility] Other XR elbow LT min 3V* Attending Dr: Lynette Flores [facility] [employer] Other XR elbow LT min 3V* Ordering Provider: [facility] Other XR elbow LT min 3V* Date of Service: 01/10/22 [facility] Other XR elbow LT min 3V* XR/XR elbow LT min 3V*: Injury of left elbow, initial encounter [facility] Other XR elbow LT min 3V* Copies to: [employer]TE [employer] Other XR elbow LT min 3V* XR elbow LT min 3V* 01/10/2022 10:51 AM [facility] Other XR elbow LT min 3V* SIGNS AND SYMPTOMS: Injury of left elbow, left elbow pain [facility] Other XR elbow LT min 3V* PROTOCOL: Frontal, lateral, and oblique radiographs of the left elbow [facility] Other XR elbow LT min 3V* COMPARISON: None [facility] Other XR elbow LT min 3V* FINDINGS: [facility] Other XR elbow LT min 3V* There is no fracture or dislocation. No joint effusion. No soft tissue swelling. The joint spaces [facility] Other XR elbow LT min 3V* are preserved. [facility] [employer] Other XR elbow LT min 3V* XR/XR elbow LT min 3V* [facility] Other XR elbow LT min 3V* IMPRESSION: [facility] [email or web address] Other XR elbow LT min 3V* No acute bony injury. [facility] Other XR elbow LT min 3V* Impression dictated by: Johnson Grijalva M.D.01/10/2022 11:26 AM [facility] Other XR elbow LT min 3V* Dictation Location: [place] [address] [facility] Other XR elbow LT min 3V* Transcribed By: YESSY 01/10/22 1126 [facility] Other XR elbow LT min 3V* Dictated By: Johnson Grijalva II, MD 01/10/22 1125 [facility] Other XR elbow LT min 3V* Signed By: [facility] Other XR elbow LT min 3V* 01/10/22 112 No rt [facility] Other [facility] 11-03-2021 S. pyogenes Org specific cx Ql (Throat) Negative [facility] Other [facility] Other Vital Signs Date Time Vital Sign Value Performing Clinician Facility 01-23-2025 10:47-0500 Body mass index (BMI) [Ratio] 22.66 kg/m2 Ho Nupur DO Work Phone: [facility] 01-23-2025 10:47-0500 Body weight 59.88 kg Ho Nupur DO Work Phone: [facility] 01-23-2025 10:47-0500 Diastolic blood pressure 68 mm[Hg] Ho Nupur DO Work Phone: [facility] 01-23-2025 10:47-0500 Systolic blood pressure 120 mm[Hg] Ho Nupur DO Work Phone: [facility] 12-30-2024 14:44-0500 Body mass index (BMI) [Ratio] 21.63 kg/m2 Ho Nupur DO Work Phone: [facility] 12-30-2024 14:44-0500 Body weight 57.15 kg Ho Nupur DO Work Phone: [facility] 12-30-2024 14:44-0500 Diastolic blood pressure 66 mm[Hg] Ho Nupur DO Work Phone: [facility] 12-30-2024 14:44-0500 Systolic blood pressure 100 mm[Hg] Ho Nupur DO Work Phone: [facility] 10-25-2024 11:17-0500 Body mass index (BMI) [Ratio] 20.08 kg/m2 Nom Nurse [facility] 10-25-2024 11:17-0500 Body weight 53.07 kg [facility] Nurse [facility] 10-25-2024 11:17-0500 Diastolic blood pressure 68 mm[Hg] [facility] Nurse [facility] 10-25-2024 11:17-0500 Systolic blood pressure 102 mm[Hg] [facility] Nurse [facility] 07-23-2024 09:34-0400 Body mass index (BMI) [Ratio] 20.08 kg/m2 Ho Nupur DO Work Phone: [facility] 07-23-2024 09:34-0400 Body weight 53.07 kg Ho Nupur DO Work Phone: [facility] 07-23-2024 09:34-0400 Diastolic blood pressure 68 mm[Hg] Ho Nupur DO Work Phone: [facility] 07-23-2024 09:34-0400 Systolic blood pressure 104 mm[Hg] Ho Nupur DO Work Phone: [facility] 04-18-2024 14:41-0400 Body height 162.56 cm [employer] ENGINEERBetzy Almendarez Work Phone: [facility] 04-18-2024 14:41-0400 Body mass index (BMI) [Ratio] 20.8 kg/m2 [employer] ENGINEERBetzy Almendarez Work Phone: [facility] 04-18-2024 14:41-0400 Body temperature 98.8 [degF] [employer]ER Isabella Almendarez Work Phone: [facility] 04-18-2024 14:41-0400 Body weight 54.99 kg [employer] ENGINEERBetzy Almendarez Work Phone: [facility] 04-18-2024 14:41-0400 Heart rate 67 /min [employer] ENGINEERBetzy Almendarez Work Phone: [facility] 04-18-2024 14:41-0400 Respiratory rate 18 /min [employer] Isabella Almendarez Work Phone: [facility] 04-18-2024 14:41-0400 SaO2% (BldA) [Mass fraction] 98 % [employer] Isabella Almendarez Work Phone: [facility] 01-11-2023 17:10-0500 Body height 163.83 cm Lynette Flores Other [facility] Other 01-11-2023 17:10-0500 Body mass index (BMI) [Ratio] 19.94 kg/m2 Lynette Flores Other [facility] Other 01-11-2023 17:10-0500 Body temperature 98.2 [degF] Lynette Flores Other [facility] Other 01-11-2023 17:10-0500 Body weight 53.52 kg Lynette Flores Other [facility] Other 01-11-2023 17:10-0500 Respiratory rate 18 /min Lynette Flores Other [facility] Other 01-11-2023 17:10-0500 SaO2% (BldA) [Mass fraction] 99 % Lynette Flores Other [facility] Other 12-13-2022 16:30-0500 Body height 162.56 cm Lanny Nieves Other [facility] Other 12-13-2022 16:30-0500 Body mass index (BMI) [Ratio] 20.25 kg/m2 Lanny Nieves Other [facility] Other 12-13-2022 16:30-0500 Body temperature 97.2 [degF] Lanny Nieves Other [facility] Other 12-13-2022 16:30-0500 Body weight 53.52 kg Lanny Nieves Other [facility] Other 12-13-2022 16:30-0500 Respiratory rate 18 /min Lanny Nieves Other [facility] Other 12-13-2022 16:30-0500 SaO2% (BldA) [Mass fraction] 99 % Lanny Nieves Other [facility] Other 07-04-2022 17:25-0400 Body height 163.83 cm Lynette Flores Other [facility] Other 07-04-2022 17:25-0400 Body mass index (BMI) [Ratio] 19.77 kg/m2 Lynette Batesault Other [facility] Other 07-04-2022 17:25-0400 Body temperature 97.8 [degF] Lynette Batesault Other [facility] Other 07-04-2022 17:25-0400 Body weight 53.07 kg Lynette Batesault Other [facility] Other 07-04-2022 17:25-0400 Diastolic blood pressure 65 mm[Hg] Lynette Batesault Other [facility] Other 07-04-2022 17:25-0400 Respiratory rate 18 /min Lynette Flores Other [facility] Other 07-04-2022 17:25-0400 SaO2% (BldA) [Mass fraction] 100 % Lynette Batesault Other [facility] Other 07-04-2022 17:25-0400 Systolic blood pressure 110 mm[Hg] Lynette Conrado Other [facility] Other 03-16-2022 14:01-0400 Blood Pressure Location Iker JHONNYEK [facility] [place] 04-27-2022 14:01-0400 Body temperature 97.7 [degF] Iker WNEK [facility] [place] 03-16-2022 14:01-0400 Diastolic blood pressure 68 mm[Hg] Iker WNEK [facility] [place] 03-16-2022 14:01-0400 Heart rate 76 /min Iker WNEK [facility] [place] 03-16-2022 14:01-0400 Respiratory rate 18 /min Iker WNEK [facility] [place] 03-16-2022 14:01-0400 SaO2% (BldA) [Mass fraction] 98 % Iker WNEK [facility] [place] 03-16-2022 14:01-0400 Systolic blood pressure 120 mm[Hg] Iker WNEK [facility] [place] 03-02-2022 14:34-0400 Blood Pressure Location Iker WNEK [facility] [place] 03-02-2022 14:34-0400 Body temperature 98.24 [degF] Iker WNEK [facility] [place] 03-02-2022 14:34-0400 Diastolic blood pressure 60 mm[Hg] Iker WNEK [facility] [place] 03-02-2022 14:34-0400 Heart rate 76 /min Iker WNEK [facility] [place] 03-02-2022 14:34-0400 Respiratory rate 18 /min Iker OLIVAS [facility] [place] 03-02-2022 14:34-0400 SaO2% (BldA) [Mass fraction] 98 % Iker OLIVAS [facility] [place] 03-02-2022 14:34-0400 Systolic blood pressure 118 mm[Hg] Iker OLIVAS [facility] [place] 02-25-2022 10:15-0400 Body height 163.83 cm Maddie Dickson Other [facility] Other 02-25-2022 10:15-0400 Body mass index (BMI) [Ratio] 19.26 kg/m2 Maddie Dickson Other [facility] Other 02-25-2022 10:15-0400 Body temperature 97.1 [degF] Maddie Dickson Other [facility] Other 02-25-2022 10:15-0400 Body weight 51.71 kg Maddie Dickson Other [facility] Other 02-25-2022 10:15-0400 SaO2% (BldA) [Mass fraction] 99 % Maddie Dickson Other [facility] Other 02-22-2022 13:23-0400 Blood Pressure Location Marli Chet [facility] [place] 02-22-2022 13:23-0400 Body temperature 97.34 [degF] Marli Chet [facility] [place] 02-22-2022 13:23-0400 Diastolic blood pressure 70 mm[Hg] Marli Chet [facility] [place] 02-22-2022 13:23-0400 Heart rate 80 /min Marliannia Rosenberg [facility] [place] 02-22-2022 13:23-0400 Respiratory rate 16 /min Marli Chet [facility] [place] 02-22-2022 13:23-0400 SaO2% (BldA) [Mass fraction] 98 % Marli Rosenberg [facility] [place] 02-22-2022 13:23-0400 Systolic blood pressure 118 mm[Hg] Marli Olds [facility] [place] 01-10-2022 11:30-0500 Body height 162.56 cm Lynette Flores Other [facility] Other 01-10-2022 11:30-0500 Body mass index (BMI) [Ratio] 21.45 kg/m2 Lynette Flores Other [facility] Other 01-10-2022 11:30-0500 Body temperature 96.9 [degF] Lynette Flores Other [facility] Other 01-10-2022 11:30-0500 Body weight 56.7 kg Lynette Flores Other [facility] Other 01-10-2022 11:30-0500 Diastolic blood pressure 69 mm[Hg] Lynette Flores Other [facility] Other 01-10-2022 11:30-0500 Respiratory rate 18 /min Lynette Flores Other [facility] Other 01-10-2022 11:30-0500 SaO2% (BldA) [Mass fraction] 99 % Lynette Flores Other [facility] Other 01-10-2022 11:30-0500 Systolic blood pressure 121 mm[Hg] Lynette Flores Other [facility] Other 11-03-2021 17:45-0500 Body height 162.56 cm Maddie Rosasmond Other [facility] Other 11-03-2021 17:45-0500 Body mass index (BMI) [Ratio] 21.8 kg/m2 Maddie Rosasmond Other [facility] Other 11-03-2021 17:45-0500 Body temperature 97.8 [degF] Maddie Rosasmond Other [facility] Other 11-03-2021 17:45-0500 Body weight 57.61 kg Maddie Rosasmond Other [facility] Other 11-03-2021 17:45-0500 Respiratory rate 18 /min Maddie Rosasmond Other [facility] Other 11-03-2021 17:45-0500 SaO2% (BldA) [Mass fraction] 99 % Maddie Dickson Other [place] [employer] Other Encounters Encounter Date Encounter Type Care [...] Start: 04-18-2024 End: 04-18-2024 ambulatory Isabella Almendarez [facility] Work Phone: Start: 04-18-2024 End: 04-18-2024 Departed Referred TRINITY Almendarez Work Phone: [facility] [place] Work Phone: Start: 04-18-2024 End: 04-18-2024 Patient encounter procedure TRINITY Almendarez Work Phone: [facility] Work Phone: Start: 12-29-2023 ambulatory Facility:[facility] Start: 01-11-2023 End: 01-11-2023 ambulatory Lynette Flores Other [place] [employer] Other Start: 01-11-2023 Office outpatient visit 25 minutes Lynette Flores [facility] Start: 12-13-2022 End: 12-13-2022 ambulatory Lanny Nieves Other [facility] Other Start: 12-13-2022 Office outpatient visit 15 minutes Lanny Nieves [facility] Start: 11-25-2022 End: 11-25-2022 ambulatory NONE LISTED REQUEST Facility:[facility] Start: 11-03-2022 End: 11-03-2022 ambulatory NONE LISTED REQUEST Facility:[facility] Start: 09-06-2022 End: 09-06-[address] GREG BO . Facility:[facility] Start: 08-18-2022 End: 08-18-2022 ambulatory MD Iker Olivas Work Phone: [facility] Work Phone: Start: 08-18-2022 End: 08-18-2022 Departed Referred MD Iker Olivas Work Phone: [facility] [place] Start: 08-16-2022 End: 08-17-[address] DOCTOR BERRY Facility:[facility] Start: 07-04-2022 End: 07-04-2022 ambulatory Lynette Flores Other [facility] Other Start: 07-04-2022 Office outpatient visit 15 minutes Lynette Flores [facility] Start: 05-05-2022 End: 05-05-2022 ambulatory IKER OLIVAS [facility] Start: 03-16-2022 End: 03-16-2022 Patient encounter procedure Iker OLIVAS [facility] [place] Start: 03-02-2022 End: 03-02-2022 Patient encounter procedure Iker OLIVAS [facility] [place] Start: 02-25-2022 End: 02-25-2022 ambulatory Maddie Dickson Other [facility] Other Start: 02-25-2022 Office outpatient visit 25 minutes Maddiekevin Dickson [facility] Start: 02-22-2022 End: 02-22-2022 Patient encounter procedure Marli Rosenberg [facility] [place] Start: 01-10-2022 End: 01-10-2022 ambulatory Lynette Flores Other [facility] Other Start: 01-10-2022 Office outpatient visit 15 minutes Lynette Flores [facility] Start: 11-03-2021 End: 11-03-2021 ambulatory Maddie Dickson Other [facility] Other Start: 11-03-2021 Office outpatient visit 15 [...] mellitus screening Expected: 01/23/2025 (Approximate), Expires: 01/23/2026 [facility] Work Phone: Comment on above: Expected: 01/23/2025 (Approximate), Expires: 01/23/2026 Start: 01-23-2025 End: 01-23-2026 Measurement of glucose 1 hour after glucose challenge for glucose tolerance test Glucose tolerance, 1 hour Lab Routine Diabetes mellitus screening Expected: 01/23/2025 (Approximate), Expires: 01/23/2026 [facility] Comment on above: Expected: 01/23/2025 (Approximate), Expires: 01/23/2026 Start: 01-23-2025 End: 01-23-2025 Patient encounter procedure 01/23/2025 10:20 AM EST Routine [facility] [address] [place] [address] Ho Espitia, DO [address] [place] [address] [facility] Start: 12-30-2024 End: 12-30-2025 12 lead ECG ECG 12 lead unit performed ECG Routine Near syncope Lightheadedness Expected: 12/30/2024 (Approximate), Expires: 12/30/2025 [facility] Comment on above: Expected: 12/30/2024 (Approximate), Expires: 12/30/2025 Start: 12-30-2024 End: 12-30-2026 Echocardiogram 2D complete Echocardiogram 2D complete Echocardiography Routine Near syncope Lightheadedness Expected: 12/30/2024 (Approximate), Expires: 12/30/2026 [facility] Comment on above: Expected: 12/30/2024 (Approximate), Expires: 12/30/2026 Start: 12-30-2024 End: 12-30-2024 Patient encounter procedure 12/30/2024 11:30 AM EST Routine [facility] [address] [facility] [place] [id number] Ho Espitia, DO [address] [place] [address] [facility] Start: 12-30-2024 End: 12-30-2024 Professional / ancillary services management 12/30/2024 10:30 AM EST Ancillary Procedure [facility] [address] [place] [id number] [facility] Start: 11-26-2024 End: 01-24-2025 Alpha fetoprotein, maternal Alpha fetoprotein, maternal Lab Routine 15 weeks gestation of Expected: 11/26/2024 (Approximate), Expires: 01/24/2025 [facility] Comment on above: Expected: 11/26/2024 (Approximate), Expires: 01/24/2025 Start: 11-26-2024 End: 11-26-2025 US for US OB 14+ weeks anatomy scan Imaging Routine 15 weeks gestation of Screening, , for anatomic survey Expected: 11/26/2024, Expires: 11/26/2025 [facility] Work Phone: Comment on above: Expected: 11/26/2024 , Expires: 11/26/2025 Start: 11-26-2024 End: 11-26-2024 Patient encounter procedure 11/26/2024 11:30 AM EST Routine [facility] [address] [facility] [place] [id number] Ho Espitia, DO [address] [place] [address] [facility] Start: 10-25-2024 End: 10-25-2025 ABO/Rh ABO/Rh Lab Routine Missed menses , unspecified gestational age Expected: 10/25/2024 (Approximate), Expires: 10/25/2025 [facility] Comment on above: Expected: 10/25/2024 (Approximate), Expires: 10/25/2025 Start: 10-25-2024 End: 10-25-2025 Blood type and Indirect antibody screen panel - Blood Type and screen Lab Routine Missed menses , unspecified gestational age Expected: 10/25/2024 (Approximate), Expires: 10/25/2025 [facility] Work Phone: Comment on above: Expected: 10/25/2024 (Approximate), Expires: 10/25/2025 Start: 10-25-2024 End: 10-25-2025 Drugs of abuse panel - Urine by Screen method Rapid drug screen, urine Lab Routine , unspecified gestational age Encounter for supervision of normal first in first trimester Expected: 10/25/2024 (Approximate), Expires: 10/25/2025 [facility] Comment on above: Expected: 10/25/2024 (Approximate), Expires: 10/25/2025 Start: 10-25-2024 End: 10-25-2025 US Pelvis transvaginal US OB transvaginal Imaging Routine Missed menses Expected: 10/25/2024 (Approximate), Expires: 10/25/2025 [facility] Comment on above: Expected: 10/25/2024 (Approximate), Expires: 10/25/2025 Start: 07-23-2024 End: 07-23-2025 Antimullerian hormone (AMH) Antimullerian hormone (AMH) Lab Routine Encounter for infertility PCOS (polycystic ovarian syndrome) Expected: 07/23/2024 (Approximate), Expires: 07/23/2025 [facility] Healthcare Comment on above: Expected: 07/23/2024 (Approximate), Expires: 07/23/2025 Start: 07-23-2024 End: 07-23-2025 DHEA DHEA Lab Routine PCOS (polycystic ovarian syndrome) Expected: 07/23/2024 (Approximate), Expires: 07/23/2025 [facility] Healthcare Comment on above: Expected: 07/23/2024 (Approximate), Expires: 07/23/2025 Start: 07-23-2024 End: 07-23-2025 US for US PELVIS-TRANSVAG IF INDICATED Imaging Routine PCOS (polycystic ovarian syndrome) Expected: 07/23/2024 (Approximate), Expires: 07/23/2025 [facility] Comment on above: Expected: 07/23/2024 (Approximate), Expires: 07/23/2025 Start: 07-21-2024 Influenza vaccination Influenza Vacc ine (#1) [facility] Start: 04-19-2024 Bacteria identified in Urine by Culture [facility] Start: 04-18-2024 Bacteria identified in Urine by Culture [facility] Bacteria identified in Urine by Culture Urine culture Microbiology Routine Missed menses Ordered: 10/25/2024 [facility] Comment on above: Ordered: 10/25/2024 Bacteria identified in Urine by Culture Urine culture Microbiology Routine UTI symptoms Ordered: 12/30/2024 [facility] Work Phone: Comment on above: Ordered: 12/30/2024 CBC W Auto Different ial panel - Blood CBC and differential Lab Routine PCOS (polycystic ovarian syndrome) Ordered: 07/23/2024 [facility] Comment on above: Ordered: 07/23/2024 CBC W Auto Different ial panel - Blood CBC and differential Lab Routine Missed menses , unspecified gestational age Ordered: 10/25/2024 [facility] Comment on above: Ordered: 10/25/2024 CBC W Auto Different ial panel - Blood CBC and differential Lab Routine Near syncope Lightheadedness Ordered: 12/30/2024 [facility] Comment on above: Ordered: 12/30/2024 DHEA-sulfate DHEA-sulfate Lab Routine PCOS (polycystic ovarian syndrome) Ordered: 07/23/2024 [facility] Comment on above: Ordered: 07/23/2024 Estradiol Estradiol Lab Ro utine Encounter for infertility PCOS (polycystic ovarian syndrome) Ordered: 07/23/2024 [facility] Comment on above: Ordered: 07/23/2024 Follicle stimulating hormone Follicle stimulating hormone Lab Routine PCOS (polycystic ovarian syndrome) Ordered: 07/23/2024 [facility] Comment on above: Ordered: 07/23/2024 hCG, quantitative, hCG, quantitative, Lab Routine PCOS (polycystic ovarian syndrome) Ordered: 07/23/2024 [facility] Work Phone: Comment on above: Ordered: 07/23/2024 Hemoglobin A1c/Hemoglobin.total in Blood Hemoglobin A1c Lab Routine Encounter for infertility PCOS (polycystic ovarian syndrome) Ordered: 07/23/2024 [facility] Comment on above: Ordered: 07/23/2024 Hemoglobin A1c/Hemoglobin.total in Blood Hemoglobin A1c Lab Routine Missed menses , unspecified gestational age Ordered: 10/25/2024 [facility] Comment on above: Ordered: 10/25/2024 Hepatitis B virus surface Ag [Presence] in Serum or Plasma by Immunoassay Hepatitis B surface antigen Lab Routine Missed menses , unspecified gestational age Ordered: 10/25/2024 [facility] Comment on above: Ordered: 10/25/2024 Hepatitis C virus Ab [Presence] in Serum or Plasma by Immunoassay Hepatitis C antibody Lab Routine Missed menses , unspecified gestational age Ordered: 10/25/2024 [facility] Comment on above: Ordered: 10/25/2024 HIV-1/HIV-2 antigen/antibody combination immunoassay HIV-1 and HIV-2 antibodies Lab Routine Missed menses , unspecified gestational age Ordered: 10/25/2024 [facility] Comment on above: Ordered: 10/25/2024 Luteinizing hormone Luteinizing hormone Lab Routine PCOS (polycystic ovarian syndrome) Ordered: 07/23/2024 [facility] Comment on above: Ordered: 07/23/2024 Progesterone Progesterone Lab Routine Encounter for infertility PCOS (polycystic ovarian syndrome) Ordered: 07/23/2024 [facility] Comment on above: Ordered: 07/23/2024 Reagin Ab [Presence] in Serum by RPR RPR Lab Routine Missed menses , unspecified gestational age Ordered: 10/25/2024 [facility] Comment on above: Ordered: 10/25/2024 Rubella antibody, IgG Rubella an tibody, IgG Lab Routine Missed menses , unspecified gestational age Ordered: 10/25/2024 [facility] Comment on above: Ordered: 10/25/2024 Thyrotropin [Units/volume] in Serum or Plasma TSH Lab Routine PCOS (polycystic ovarian syndrome) Ordered: 07/23/2024 [facility] Comment on above: Ordered: 07/23/2024 Thyrotropin [Units/volume] in Serum or Plasma TSH Lab Routine Near syncope Lightheadedness Ordered: 12/30/2024 [facility] Comment on above: Ordered: 12/30/2024 Thyroxine (T4) free [Mass/volume] in Serum or Plasma T4, free Lab Routine PCOS (polycystic ovarian syndrome) Ordered: 07/23/2024 [facility] Comment on above: Ordered: 07/23/2024 Immunizations Immunization Date Immunization Notes Care Provider Gulshan nunes 12-10-2020 hepatitis A vaccine, pediatric/adolescent dosage, 2 dose schedule Marli Rosenberg [facility] 12-10-2020 meningococcal polysaccharide (groups A, C, Y and W-135) diphtheria toxoid conjugate vaccine (MCV4P) Marliannia Rosenberg [facility] 09-01-2016 meningococcal ACWY vaccine, unspecified formulation Marli Rosenberg [facility] 09-01-2016 tetanus toxoid, redu matthieu diphtheria toxoid, and acellular pertussis vaccine, adsorbed Marliannia Rosenberg [facility] 12-10-2013 influenza virus vacc ine, unspecified formulation Marliannia Rosenberg [facility] 12-11-2008 influenza virus vacc ine, unspecified formulation Marli Rosenberg [facility] 05-01-2008 diphtheria, tetanus toxoids and acellular pertussis vaccine Marliannia Rosenberg [facility] 05-01-2008 hepatitis B vaccine, adult dosage Marli Rosenberg [facility] 05-01-2008 measles, mumps and rubella virus vaccine Marli Chet [facility] 05-01-2008 poliovirus vaccine, unspecified formulation Marli Chet [facility] 05-01-2008 varicella virus vaccine Brittney abeth Chet [facility] 03-16-2005 diphtheria, tetanus toxoids and acellular pertussis vaccine Marli Chet [facility] 03-16-2005 haemophilus influenz ae type b vaccine, HbOC conjugate Marli Rosenberg [facility] 03-16-2005 measles, mumps and rubella virus vaccine Marli Rosenberg [facility] 03-16-2005 pneumococcal conjuga te vaccine, 13 valent Marli Rosenberg [facility] 03-16-2005 varicella virus vaccine Brittney abeth Chet [facility] 2004 influenza virus vacc ine, unspecified formulation Marli Rosenberg [facility] 2004 diphtheria, tetanus toxoids and acellular pertussis vaccine Marli Rosenberg [facility] 2004 haemophilus influenz ae type b vaccine, HbOC conjugate Marli Columbus [facility] 2004 hepatitis B vaccine, adult dosage Marli Columbus [facility] 2004 pneumococcal conjuga te vaccine, 13 valent Marli Columbus [facility] 2004 poliovirus vaccine, unspecified formulation Marli Columbus [facility] 2004 diphtheria, tetanus toxoids and acellular pertussis vaccine Marli Columbus [facility] 2004 haemophilus influenz ae type b vaccine, HbOC conjugate Marli Chet [facility] 2004 hepatitis B vaccine, adult dosage Marli Columbus [facility] 2004 pneumococcal conjuga te vaccine, 13 valent Marli Columbus [facility] 2004 poliovirus vaccine, unspecified formulation Marli Columbus [facility] 2004 diphtheria, tetanus toxoids and acellular pertussis vaccine Marli Columbus [facility] 2004 haemophilus influenz ae type b vaccine, HbOC conjugate aMrli Rosenberg [facility] 2004 hepatitis B vaccine, adult dosage Marli Rosenberg [facility] 2004 pneumococcal conjuga te vaccine, 13 valent Marli Rosenberg [facility] 2004 poliovirus vaccine, unspecified formulation Marli Rosenberg [facility] Payers Date Payer Category Payer Self-pay [id number] 2024 Medicaid [employer] [place] [id number] 2024-Present [address] [place] [address] [id number] 2024 Medicaid [id number] 2013 Private Health Insurance [id number] 2004 Unknown [id number] 2.16.840.1.710099.3.579.2. 479 2004 Unknown [id number] 2.16.840.1.353361.3.579.2. 593 2004 Unknown [id number] 2.16.840.1.531082.3.579.2. 593 2004 Unknown [id number] 2.16.840.1.958785.3.579.2. 593 2004 Unknown [id number] 2.16.840.1.143212.3.579.2. 1259 2004 Unknown [id number] 2.16.840.1.115985.3.579.2. 1259 2004 Unknown [id number] 2.16.840.1.553424.3.579.2. 1259 2004 Unknown [id number] 2.16.840.1.246517.3.579.2. 1259 2004 Unknown [id number] 2.16.840.1.383923.3.579.2. 9 2004 Unknown [id number] 2.16.840.1.246579.3.579.2. 1259 1984 Unknown [id number] 2.16.840.1.260223.3.579.2. 593 1959 Unknown [id number] 2.16.840.1.945835.19 1959 Unknown [id number] 2.16.840.1.317194.19 1959 Unknown [id number] 2.16.840.1.492140.19 Unknown Josephine / [id number] Unknown [id number] [id number] Unknown [id number] 2.16.840.1.787637.3.579.2. 531 Social History Date Type Detail Facility Start: 01-07-2022 End: 11-01-2023 Tobacco smoking status Never smoked tobacco (finding) [facility] Other Tobacco smoking status Never [facility] Start: 11-01-2023 End: 07-23-2024 Sex Assigned At Female [place] [employer] Other Start: 2005 Sex Assigned At Female F [facility] Start: 11-01-2023 Tobacco use and exposure Smokeless [...] - 01/23/2025 10:20 AM Juan R Leal, [facility] - 12/30/2024 2:10 PM Lisa Cody, [facility] - 11/26/2024 11:30 AM Elisa Bowling MD - 10/25/2024 10:30 AM EST Note Date [...] Ho Espitia DO documented in this encounter [facility] 12-30-2024 History of Presen t illness Narrative [...] nursing note reviewed. Exam conducted with a sand plant attendant present. Vitals: Estimated body mass index is [...] ECHO and EKG will be sent to [facility] to be scheduled. Will also send orders for TSH to be drawn every 4 weeks throughout and CBC will also need to be drawn. Patients urine will be sent out for culture today with sample that was provided in office. Documented by Reyna Leal LPN on behalf of: Ho Espitia DO documented in this encounter [facility] 11-26-2024 History of Presen t illness Narrative [...] nursing note reviewed. Exam conducted with a sand plant attendant present. Vitals: Estimated body mass index is [...] or undercooked meat, and stay away from [facility]. Patient has been consulted regarding any further [...] Ho Espitia DO documented in this encounter [facility] 10-25-2024 History of Presen t illness Narrative [...] Fidelia Bowling MA documented in this encounter [facility] 07-23-2024 History of Presen t illness Narrative [...] nursing note reviewed. Exam conducted with a sand plant attendant present. Vitals: Estimated body mass index is [...] Ho Espitia DO documented in this encounter [facility] 01-11-2023 Evaluation note Encounter Date Diagnosis Assessment Notes Dec, Acute effusion of left ear (ICD-10 - H65.192) try this medication and referral sent to ENT since conservative treatment has been used by urgent care and PCP without improvement of symptoms. [facility] Other 01-24-2023 Evaluation note* Encounter Date Diagnosis [...] understanding and is agreeable to treatment plan [facility] Other 08-15-2022 Evaluation note* Encounter Date Diagnosis Assessment Notes Treatment Notes Treatment Clinical Notes Jun, Tooth infection (ICD-10 - K04.7) Take medications as directed.Highly encourage patient to contact dentist CARLY for further treatment of infection. Ok to take OTC medications like ibuprofen with prescriptions [facility] Other 06-16-2022 Chana Ware is here for consultation at the request of Iker Olivas MD for: Constipation ---History from parent and patient History of Present Illness My advice was requested by Iker Olivas MD. She is accompanied by her mother and sibling(s). No spanish interpreter/translator was used. ABD pain - Patient has [...] 40mg per day Mirala (more content not included)...[facility]04-13-2022 Hospital Discharge instructions Follow Up Care 03/02/2022 15:03:01 With:Iker OLIVAS MD, PED Address: [address] [place] [address] [address]- When:03/30/2022 Comments:recheck dyspnea/chest pain [facility] 04-13-2022 Hospital Discharge instructions Follow Up Care 03/02/2022 09:25:52 With:Iker OLIVAS MD, PED Address: [address] [place] [address]- When:03/16/2022 Comments:recheck SOB [facility] 04-08-2022 Evaluation note* Encounter Date [...] 3 days. Feb, Bronchitis (ICD-10 - J40) [facility] Other 04-05-2022 Hospital Discharge instructions Follow Up Care 02/22/2022 08:51:47 With:Marli Rosenberg MD Address: When: Unknown Comments:f/up in 2 months for recheck anxiety [facility] 02-21-2022 Evaluation note* Encounter Date Diagnosis Assessment [...] we will help you get into specialist. [facility] Other 12-15-2021 Evaluation note* Encounter Date Diagnosis Assessment Notes Treatment Notes Treatment Clinical Notes Oct, Sore throat (ICD-10 - J02.9) Oct, Viral pharyngitis (ICD-10 - J02.9) Drink plenty of fluids, get plenty of rest. Tylenol or Motrin for aches pains or fevers. Follow-up with family physician if no improvement in 2 to 3 days for [facility] Other 10-02-2013 History general Narrative - Reported* Type Description Date Medical History eczema Medical History reactive airway Medical History Radial fracture (resolved 2012) Medical History Strep throat (resolved ) Surgical History dental reconstruction age 1 [facility] Other 10-02-2013 History general Narrative - Reported* Type Description Date Medical History eczema Medical History reactive airway Medical History Radial fracture (resolved 2012) Medical History Strep throat (resolved ) Surgical History dental reconstruction age 1 Surgical History Cyst Removal Left eye 08/2022 [facility] Other Evaluation + Plan note Referrals to Other Providers Referred by: Chet DENTON, Marli ENRIQUE [facility] Evaluation + Plan note Future Appointments Appointment Date:03/16/2022 02:00:00 PM Scheduled Provider:Iker OLIVAS MD [facility] Appointment Type:Peds OV 10 Referrals to Other Providers Referred by: Iker OLIVAS MD [facility] Evaluation + Plan note Future Appointments Appointment Date:03/30/2022 08:40:00 AM Scheduled Provider:Iker OLIVAS MD Location:[facility] Appointment Type:Peds OV 10 [facility] Evaluation noteNo assessment information available [facility] Work Phone: evaluation note* Diagnosis Onset Date Resolution Status Acute UTI (urinary tract infection) acute [facility] Work Phone: Evaluation note* Diagnosis Encounter for infertility PCOS (polycystic ovarian syndrome) Polycystic ovaries documented in this encounter [facility] HealthcareEvaluation note* Diagnosis Missed menses , unspecified gestational age Encounter for supervision of normal first in first trimester 11 weeks gestation of documented in this encounter [facility] HealthcareEvaluation note* Diagnosis 15 weeks gestation of Screening, , for anatomic survey Encounter for anatomic survey documented in this encounter [facility] HealthcareEvaluation note* Diagnosis Third trimester state, incidental 20 weeks gestation of Near syncope UTI symptoms Lightheadedness Dizziness and giddiness Other headache syndrome documented in this encounter [facility] HealthcareEvaluation note* Diagnosis 24 weeks gestation of Third trimester state, incidental Diabetes mellitus screening Screening for diabetes mellitus documented in this encounter [facility] HealthcareHospital course Narrative No data available for this section [facility] Reason for Referral Reason *FU 02/02 Middle e ar effusion that is persisting Diagnosis 1 Acute effusion of le ft ear (H65.192) Referral Organization [facility] Family Medicin e Michael Referring Provider First Name Lynette Referring Provider Last Name Conrado Referring Provider Specialty Nurse Pract itioner Referred Organization [facility] Referred Provider Fiordaliza Akers Referred Address ,[place], [place],[address] Referred Provider Specialty Ear, Nose an d [...] section and content) DATE CREATED AUTHOR 03/02/2023 [facility] DATE CREATED AUTHOR AUTHOR'S ORGANIZ ATION 03/25/2023 [facility] DATE CREATED AUTHOR AUTHOR'S ORGANIZ ATION 12/30/2023 [facility] DATE CREATED AUTHOR AUTHOR'S ORGANIZ ATION 01/10/2025 [facility] DATE CREATED AUTHOR AUTHOR'S ORGANIZ ATION 01/25/2025 [facility] EPIC FOR RECORDS PERTAINING [...] BE BASED ON THE PRIMARY CLINICAL RECORDS. [facility] provides no warranty or guarantee of the accuracy or completeness of information in this document.
[2025-01-30 12:03] LABS: Basophils Percent Auto 0.2 % (0.2-2.0); Eosinophils Absolute Auto 0.1 10^3/uL (0.0-0.7); Eosinophils Percent Auto 0.6 % (0.9-7.0); Hematocrit 35.4 % (36.0-48.0); Hemoglobin 11.9 g/dL (12.0-16.0); Immature Granulocytes Abs Auto 0.08 10^3/uL (0.00-0.03); Immature Granulocytes Pct Auto 0.8 % (0.0-0.5); Lymphocytes Absolute Auto 1.3 10^3/uL (1.2-3.8); Lymphocytes Percent Auto 12.7 % (20.5-60.0); Mean Corpuscular HGB Conc 33.6 g/dL (29.9-35.2); Mean Corpuscular Hemoglobin 28.5 pg (26.7-34.0); Mean Corpuscular Volume 84.9 fL (81.0-99.0); Mean Platelet Volume 9.2 fL (9.5-13.5); Monocytes Absolute Auto 0.5 10^3/uL (0.3-0.8); Monocytes Percent Auto 5.2 % (1.7-12.0); Neutrophils Absolute Auto 8.2 10^3/uL (1.4-6.5); Neutrophils Percent Auto 80.5 % (43.0-75.0); Platelet Count 319 10^3/uL (150-450); Red Blood Count 4.17 10^6/uL (4.20-5.40); Red Cell Distribution Width 12.8 % (11.0-15.0); White Blood Count 10.2 10^3/uL (4.0-11.0)
[2025-01-30 12:18] LABS: Glucose 1 Hour 91 mg/dL (<130)
== END 2025-01-30 10:44 | disposition home or self-care (01) ==
LOC: LAB 10:44
PROVIDERS: PCP Nurse Practitioner Family; Visit Provider Obstetrics & Gynecology
DX: Z13.1 Encounter for screening for diabetes mellitus (principal)
CPT/HCPCS: 36415; 82950; 85025

== ENCOUNTER 2025-02-13 15:20 | Observation (INO) | payer OTHER, SELFPAY ==
[2025-02-13 15:42] VITALS: BP 108/60; PULSE 91
[2025-02-13 16:01] LABS: Bilirubin Urine NEGATIVE (NEGATIVE); Blood Urine LARGE (NEGATIVE); Clarity Urine CLOUDY (CLEAR); Color Urine LT. YELLOW (YELLOW); Glucose Urine UA NEGATIVE (NEGATIVE); Ketones Urine NEGATIVE (NEGATIVE); Leukocyte Esterase Urine TRACE (NEGATIVE); Nitrite Urine NEGATIVE (NEGATIVE); Protein Urine NEGATIVE (NEG/TRACE); Urobilinogen Urine 0.2 EU/dL (0.2-1.0)
[2025-02-13 16:13] LABS: Urine Microscopic Indicated YES
[2025-02-13 16:14] LABS: Amorphous Sediment Urine MODERATE; Bacteria Urine SMALL #/HPF (NONE SEEN); Cast Seen? NONE SEEN #/LPF (NONE SEEN); Crystals Seen? Seen #/HPF (None Seen); Mucus Urine SMALL (NONE SEEN); Squamous Epithelial Cell Urine FEW #/LPF (NONE/RARE); Urine Culture Indicated YES-LC
--- NOTE | 2025-02-13 18:20 | PC.NURSE ---
1701- Report received from Binta GALEANO. This RN assumes care.
== END 2025-02-13 18:10 | disposition home or self-care (01) ==
PROVIDERS: Admitting Provider Obstetrics & Gynecology; PCP Nurse Practitioner Family; Visit Provider Obstetrics & Gynecology
DX: O26.892 Other specified pregnancy related conditions, second trimester (principal); R10.32 Left lower quadrant pain; Z3A.27 27 weeks gestation of pregnancy
CPT/HCPCS: 59025; 81001; 87086; G0378; G0379

== ENCOUNTER 2025-03-25 09:54 | Outpatient (OUT) | payer OTHER, SELFPAY ==
--- NOTE | 2025-03-25 10:07 | US_ITS ---
[place] [id number] Patient Name: YIN MILLARD MRN: [id number] date: 2005 Sex: F Assigned Patient Location: [facility] Current Patient Location: [facility] Accession/Order Number: [id number] Exam Date: 03/25/2025 11:31 Report Date: 03/25/2025 11:32 At the request of: HO YORK DO Procedure: US OB BPP w non-stress Biophysical profile. Reason for exam: Small for gestational age. COMPARISON: None. TECHNIQUE: Transabdominal imaging of the gravid uterus was obtained. FINDINGS: Biophysical profile is 8 out of 8. JOSEPH is normal at 10.0 cm. heart rate 171 bpm. US/US OB BPP w non-stress IMPRESSION: BPP 8 out of 8. Impression dictated by: Juan Ramon Lopez Jr., D.O. 03/25/2025 11:32 AM Dictation Location: [facility] Electronically authenticated by: [id number] Y Date: 03/25/2025 11:32
[2025-03-25 10:44] VITALS: BP 108/70; PULSE 100
== END 2025-03-25 13:45 | disposition home or self-care (01) ==
LOC: US 09:54 → FBC 09:57
PROVIDERS: PCP Nurse Practitioner Family; Visit Provider Obstetrics & Gynecology
DX: O26.843 Uterine size-date discrepancy, third trimester (principal); Z3A.32 32 weeks gestation of pregnancy
CPT/HCPCS: 76818; 76820

== ENCOUNTER 2025-03-28 08:51 | Outpatient (OUT) | payer OTHER, SELFPAY ==
[2025-03-28 08:59] VITALS: BP 104/56; PULSE 68
== END 2025-03-28 09:30 | disposition home or self-care (01) ==
LOC: FBCO 08:51 → FBC 08:53
PROVIDERS: PCP Nurse Practitioner Family; Visit Provider Obstetrics & Gynecology
DX: O36.5930 Maternal care for other known or suspected poor fetal growth, third trimester, not applicable or unspecified (principal)
CPT/HCPCS: 59025

== ENCOUNTER 2025-04-01 09:56 | Outpatient (OUT) | payer OTHER, SELFPAY ==
[2025-04-01 10:50] VITALS: BP 110/69; PULSE 107
--- NOTE | 2025-04-01 14:04 | PC.NURSE ---
Patient declining for monitoring at this time and is anxious to be discharged home. RN calls Dr. Espitia to report no result from ultrasound in yet and to get further orders.
--- NOTE | 2025-04-01 14:16 | PC.NURSE ---
patient educated of importance of RN wanting to continue monitoring while waiting to get results from radiology and for a returned phone call from doctor and patient states, i do not want to continue with any more monitoring right now. RN respects patient's wishes. RN to let patient know when results are in. RN offers fluids and a menu for food and patient declines both.
--- NOTE | 2025-04-01 15:10 | PC.NURSE ---
04/01/[address] Faiht called and RN describes to Dr. Faith why patient is still at hospital and that we are waiting for radiologist to read doppler study but that results may take 24-48 hours to be reported. Patient history provided to Dr. Faith and today's testing results reported. Dr. Faith provides order to discharge patient home and to follow up on Monday for repeat BPP, JOSEPH, NST and doppler study. Verbal orders repeated back and verified.
== END 2025-04-01 15:16 | disposition home or self-care (01) ==
LOC: US 09:56 → FBC 09:58
PROVIDERS: PCP Nurse Practitioner Family; Visit Provider Obstetrics & Gynecology
DX: O26.849 Uterine size-date discrepancy, unspecified trimester (principal)
CPT/HCPCS: 76818; 76820

== ENCOUNTER 2025-04-04 08:59 | Outpatient (OUT) | payer OTHER, SELFPAY ==
[2025-04-04 09:39] VITALS: BP 112/63; PULSE 103
== END 2025-04-04 10:05 | disposition home or self-care (01) ==
LOC: US 08:59 → FBC 09:01
PROVIDERS: PCP Nurse Practitioner Family; Visit Provider Obstetrics & Gynecology
DX: O26.893 Other specified pregnancy related conditions, third trimester (principal); Z3A.34 34 weeks gestation of pregnancy
CPT/HCPCS: 76818; 76820

== ENCOUNTER 2025-04-08 14:56 | Outpatient (OUT) | payer OTHER, SELFPAY ==
--- OUTSIDE RECORDS SUMMARY | 2008-12-11 06:30 | XMS_ITS | Continuity of Care Document ---
Author Organization [facility] Address [address] [place] [address] Phone Care Team Providers Care Education Analyst Name Role Phone Shante DANIEL Danielito Unavailable Unavailable Procedures Procedure Date FLU VACCINE, 3 YRS, IM Advance Directives Directive Yes / No Effective Date File Name No Information Encounters Encounter Description Practice Location Reason(s) For Visit Diagnoses Date Provider Providers Copied on Encounter [facility], [address] [place], [place], [id number], tel:[phone] [facility] No Information Shante Christensen. [address] [place], [place], [id number], [place]. tel:[phone] Family History Family Member Type Diagnosis Age At Onset No Information Payers Payer name Insurance type Covered republican ID Authoriza tion(s) No Information Social History Type Description Quantity Date Captured Comments Sex Female Smoking Status No Information Chief Complaint And Reason For Visit No Information Reason For Referral Reason For Referral No Information History Of Present Illness Encounter Date Complaint History Of Prese nt Illness No Information Functional Status Date Functional Assessmen t No Information Instructions Date Instruction Additional Infor mation No Information Assessments Type Assessment Date No Information Patient Care Teams Name Effective Dates (start - stop) Status Members No Information
--- OUTSIDE RECORDS SUMMARY | 2024-07-02 05:16 | XMS_ITS ---
Author Organization The [facility] in [place] Address [address] [place] [address] Care Team Providers Care Industrial Electrician Name Role Phone Maddie Gould Primary Care Provider REASON FOR VISIT + covid Medications Medication SIG (Take, Route, Frequency, Duration) Notes Start Date End Date Status Paxlovid (300/100) 20 x 150 MG & 10 x 100MG 3 tablets Orally Twice a day for 5 days 07/02/2024 Active Encounters Encounter Location Date Provider Diagnosis [facility] [address] [place] [address] 07/02/2024 Maddie Gould Plan Of Treatment Medication Medication Name Sig Start Date Stop Date Notes Paxlovid (300/100) 20 x 150 MG & 10 x 100MG 3 tablets Orally Twice a day for 5 days 07/02/2024 Progress Notes * Shilpi MILLARD MDOB:2005 (19 yo F)Acc No.[id number]:07/02/2024 Patient: Shilpi ARGUETA :2005 A ge:19 Y S ex:Female Address:[address] [place] [address] * Refills Start Paxlovid (300/100) Tablet Therapy [...] Date: Generated for Amina nguyen/Berkley/Uriah on: 0 04/08/2025 02:58 PM EDT
--- OUTSIDE RECORDS SUMMARY | 2024-10-16 05:30 | XMS_ITS ---
Author Organization [facility] in [place] Address [address] [place] [address] Care Team Providers Care Exhibit Technician Name Role Phone Maddie Gould Primary [...] 10/16/2024 Encounters Encounter Location Date Provider Diagnosis [facility] [address] [place] [address] 10/16/2024 Maddie Gould Seasonal allergic rhinitis J30.2 [...] * Shilpi MILLARD MDOB:2005 (19 yo F)Acc No.[id number]:10/16/2024 Progress Note Patient: Shilpi ARGUETA Provider: Stacie Gould ([facility]), DJANGO DEVELOPER :2005 A ge:19 Y S ex:Female Date:10/16/2024 Address:[address] [facility], [id number] Check In:09:26 AM ESTCheck O ut:10:17 AM [...] (Check Out) true * Provider: Stacie Gould ([facility]), DJANGO DEVELOPER Date: 12/16/2023 Generated for Printi ng/Faxing/eTransmitting on: 0 04/08/2025 02:58 PM EDT History and Physical Notes * [...]
--- OUTSIDE RECORDS SUMMARY | 2024-10-16 06:57 | XMS_ITS ---
Author Organization The [facility] in [place] Address [address] [place] [address] Care Team Providers Care Commodity Industry Analyst Name Role Phone Maddie Gould Primary Care Provider REASON FOR VISIT allergy Encounters Encounter Location Date Provider Diagnosis [facility] [address] [place] [address] 10/16/2024 Maddie Gould Plan Of Treatment No Information Progress Notes * Shilpi MILLARD MDOB:2005 (19 yo F)Acc No.[id number]:10/16/2024 Patient: Ronald Shilpi MARTINEZ :2005 A ge:19 Y S ex:Female Address:[address] [place] [address] * true * Date: Generated for Printi ng/Faxing/eTransmitting on: 0 04/08/2025 02:58 PM EDT
--- OUTSIDE RECORDS SUMMARY | 2025-04-08 14:58 | XMS_ITS | Patient Health Record ---
Author Organization [employer] es Address [address] [place] [address] Support Name Relationship Address Phone CONCHITA Yeimi Emergency Contact [address] [place] [address] FREEMANSHAUNNA Guarantor Unknown [phone] Reason For Referral No Information Problems Problem Type SNOMED Code ICD Code Onset Dates Problem Status W/U Status Risk Notes Problem [id number] Social anxiety disorder (F40.10) Active confirmed Plan Of Treatment No Information Insurance Providers Payer Name Payer Address Payer Phone Subscriber Number Group Number Insured Name Patient Relationship to Insured Coverage Start Date Coverage End Date [employer] [address] [address] [place] [address] [id number] YIN MILLARD Self - patient is the insured 1 [facility]P-ter[facility] [address] [place] [address] [id number] [facility] YIN MILLARD Self - patient is the insured 2 [employer] after [facility] [employer]P-termed 22 [address] [place] [address] [id number] YIN MILLARD Self - patient is the insured 2
--- NOTE | 2025-04-08 14:59 | US_ITS ---
[place] [address] Patient Name: YIN MILLARD MRN: [id number] date: 2005 Sex: F Assigned Patient Location: [facility] Current Patient Location: Accession/Order Number: [id number] Exam Date: 04/08/2025 16:39 Report Date: 04/08/2025 16:40 At the request of: HO YORK DO Procedure: US OB BPP w non-stress Ultrasound biophysical profile HISTORY: Small for gestational age. There is adequate breathing movement, gross body movement, tone and amniotic fluid volume for total score of 8 out of 8. Amniotic fluid index is 12.9 cm within normal limits. heart rate 126 bpm. US/US OB BPP w non-stress IMPRESSION: Adequate biophysical profile. Impression dictated by: Franck Soto M.D. 04/08/2025 4:40 PM Dictation Location: [place] [address] Electronically authenticated by: [id number] Y Date: 04/08/2025 16:40
--- OUTSIDE RECORDS SUMMARY | 2025-04-08 15:19 | XMS_ITS | CCD ---
Author Organization [facility] Care Team Providers Care Weigh And Charge Worker Name Role Phone Iker OLIVAS Primary Care Physician [phone] Maddie Dickson Unavailable Lynette Flores Unavailable MD Iker Olivas Primary Care Provider MD Kole Baron Attending Provider Lanny Nieves Unavailable IKER OLIVAS Referring Unavailable BRENDON, IKER Eddy Primary Care Unavailable KAISER LOVE Attending Unavailable [...] SANTANA Consulting Unavailable TRINITY Almendarez Attending Provider Unavailable Primary Care Provider UnavailIsabella Christensen Attending Unavailable Isabella Almendarez Admitting Unavailable NON STAFF Primary Care Unavailable Unavailable Primary Care Provider Unavailabl e NUPUR, EL Referring Unavailable NUPUR, EL Attending Unavailable NUPUR, EL Attending Unavailable NHUNG YBARRA Attending Unavailable NUPUR, EL Attending Unavailable NUPUR, EL Attending Unavailable NUPUR, EL Attending Unavailable NUPUR, EL Attending Unavailable NUPUR, EL Referring Unavailable BAKARI HOWELL Attending Unavailable EL ESPITIA Referring Unavailable EL ESPITIA Referring Unavailable EL ESPITIA Referring Unavailable Allergies Allergy Classification Reported Allergen(s) Allergy Type Date of Onset Reaction(s) Facility (20 sources) Latex; Translations: [LATEX] Drug allergy 9 Eruption of skin (disorder), Unknown, Rash, Hives [facility] (3 sources) contact metals 1 Drug allergy Eruption of skin (disorder) [facility] Comment on above: family states pt dev elops rash to alumininum in deoderant, fake jewelry (possibly kp?), etc (7 sources) Coconut extract; Translations: [coconut] Drug Allergy 2 GI Disturbance [facility] (16 sources) Iron; Translations: [IRON] Drug Allergy 2 Hives [facility] Repository (2 sources) contact metal agent Drug allergy (disorder) 4 Rash Repository (1 source) contact metals; Translations: [contact metals] Propensity to adverse reactions (disorder) [facility] Repository (20 sources) Coconut extract Drug Allergy 4 GI intolerance [facility] Healthcare (20 sources) Other Propensity to adverse reactions 9 Unknown [facility] Healthcare (1 source) contact metal agent Drug allergy (disorder) 4 [facility] Repository Medications Current Medications Medication Drug Class(es) Dates Sig (Normalized) Sig (Original) albuterol HFA 90 mcg/inh MDI (2 sources) Start: 03-02-2022 take 2 puff(s) by inhalation every four hours as needed for wheezing albuterol HFA 90 mcg/inh MDI 2 puff(s), Inhalation, q4hr as needed for wheezing, 18 gm, Refill(s) 0, [id number], 164, cm, 03/02/22 14:37:00 EDT, Height/Length Dosing, [...] day(s), # 28 tab(s), Refills(s) 0, Pharmacy: [facility]/pharm[facility] #[id number], 161, cm, 03/16/22 14:08:00 [...] take 1 capsule by mo [facility] every eight hours Cephalexin 500 MG 1 capsule Orally tid for 10 day(s) Feb, Active cetirizine hydrochloride 10 mg oral tablet (4 sources) Histamine-1 Receptor Antagonist Start: 01-11-2023 take 1 tablet by mouth every twenty-four hours Cetirizine HCl 10 MG 1 tablet Orally Once a day for 30 day(s) Dec, Active Start: 03-02-2022 take 1 tablet by [facility] once daily as needed cetirizine 10 mg Tab 10 mg = 1 tab(s), Oral, Daily, PRN for allergy symptoms, # 30 tab(s), Refills(s) 0, Pharmacy: [facility]/pharmacy #[id number], 164, cm, 03/02/22 14:37:00 [...] qPM, # 30 tab(s), Refills(s) 0, Pharmacy: [facility]/pharmacy #[id number], 165.5, cm, 02/22/22 13:27:00 [...] gestation 30 suppository 2 09/11/2024 10/11/2024 Active terconazole 4 mg/ml vaginal cream (4 sources) Azole Antifungal Start: 03-18-2025 End: 03-25-2025 terconazole (Terazol 7) 0.4 % vaginal cream Indications: Yeast infection Insert 1 applicator into the vagina at bedtime for 7 days 45 g 03/18/2025 03/25/2025 Active Completed/Discontinued Medications Medication Drug Class(es) Dates Sig (Normalized) Sig (Original) metroNIDAZOLE 0.0075 mg/mg vaginal gel (2 sources) Nitroimidazole Antimicrobial Start: 03-06-2025 End: 03-11-2025 metroNIDAZOLE (Metrogel) 0.75 % vaginal gel Indications: Vaginal discharge Insert into the vagina Daily for 5 days 70 g 03/06/2025 03/11/2025 Paxlovid, 300/100, 20 x 150 MG & [...] 01-29-2019 12-10-2020 Episodic Contraceptive and procreative management (10 sources) Patient encounter status; Translations: [Encounter for [...] UTERINE VAG BLEED] Onset: 09-07-2022 Chronic Other female genital disorders (2 sources) Vaginal discharge; Translations: [Other specified noninflammatory disorders of vagina] 03-06-2025 Episodic Other lower respiratory disease (10 sources) Dyspnea; Translations: [Shortness of breath] Onset: 03-02-2022 Episodic Other and delivery including normal (14 sources) ; Translations: [Encounter for supervision of [...] of ] 10-25-2024 Episodic Residual codes; unclassified (2 sources) Gestation period, 24 weeks; Translations: [24 weeks gestation of ] 01-23-2025 Episodic Residual codes; unclassified (2 sources) Gestation period, 28 weeks; Translations: [28 weeks gestation of ] 02-20-2025 Episodic Residual codes; unclassified (2 sources) Gestation period, 30 weeks; Translations: [30 weeks gestation of ] 03-06-2025 Episodic Residual codes; unclassified (2 sources) Gestation period, 32 weeks; Translations: [32 weeks gestation of ] 03-20-2025 Episodic Residual codes; unclassified (2 sources) Gestation period, 34 weeks; Translations: [34 weeks gestation of ] 04-08-2025 Episodic Short gestation; low weight; and growth retardation (4 sources) Oxman-trr-wjwms baby; Translations: [Martin small for gestational age, unspecified weight] Onset: 03-27-2025 03-24-2025 Episodic Superficial injury; contusion (3 sources) Contusion [...] pharyngitis] Onset: 11-03-2021 Resolved: 02-25-2022 01-07-2022 Episodic Residual codes; unclassified (20 sources) Gestation period, 15 weeks; Translations: [15 weeks gestation of ] Onset: 11-26-2024 11-26-2024 Episodic Residual codes; unclassified (20 sources) Gestation period, 20 weeks; Translations: [20 weeks gestation of ] Onset: 12-30-2024 12-30-2024 Episodic Syncope (20 sources) Syncope; Translations: [Near syncope] Onset: 01-29-2019 12-10-2020 Episodic Results Test Name Value Interpretation Reference Range Facility Urinalysis macro (dipstick) panel (U)on 04-08-2025 Bilirubin, UA Negative Negative - 4(70) +++ mg/dL [facility] Blood, UA Negative Negative - 50 Rambo/mcL [facility] Clarity, UA Clear [facility] re Color, UA Yellow [facility] Glucose, UA Negative Negative - 1999(110) ++++ mg/dL [facility] Interpretation and review of laboratory results Normal [facility] Ketones, UA Negative Negative - 160(16) ++++ mg/dL [facility] Leukocytes, UA Negative Negative - 500+++ Charity/mcL [facility] Nitrite, UA Negative Negative - Positive [facility] pH, UA 5.5 5 - 9 [facility] Protein, UA Negative Negative - 2000(20) ++++ mg/dL [facility] Spec Grav, UA 1.02 1 - 1.03 [facility] Urobilinogen, UA 1.0 0.2 - 12 mg/dL [facility] US OB BPP W NON-STRESS on 03-25-2025 [place] [address] Ultrasound Report Signed Patient: SHILPI MILLARD MR#: [id number] : 2005 Acct:[id number] Age/Sex: 20 / F ADM Date: 03/25/25 Loc: [facility] 250-[address]: El Espitia D.O. Ordering Physician: El Espitia D.O. Date of Service: 03/25/25 Procedure(s): US OB BPP w non-stress Accession Number(s): [id number] cc: MADDIE COREA ; El Espitia D.O. [place] [address] Patient Name: SHILPI MILLARD MRN: [facility]:[id number] date: 2005 Sex: F Assigned Patient Location: [facility] Current Patient Location: [facility] Accession/Order Number: [id number] Exam Date: 03/25/2025 11:31 Report Date: 03/25/2025 11:32 At the request of: EL ESPITIA DO Procedure: US OB BPP w non-stress Biophysical profile. Reason for exam: Small for gestational age. COMPARISON: None. TECHNIQUE: Transabdominal imaging of the gravid uterus was obtained. FINDINGS: Biophysical profile is 8 out of 8. JOSEPH is normal at 10.0 cm. heart rate 171 bpm. US/US OB BPP w non-stress IMPRESSION: BPP 8 out of 8. Impression dictated by: Juan Ramon Lopez Jr., D.O. 03/25/2025 11:32 AM Dictation Location: [place] [address] Electronically authenticated by: [id number] Y Date: 03/25/2025 11:32 Dictated By: Juan Ramon Lopez M.D. Signed By: 03/25/25 1135 DD/ 1132 TD/TT: Hydraulic Strainer Operator: [facility] Radiology, Radiologist, MD - 03/25/2025 [place] [address] Ultrasound Report Signed Patient: SHILPI MILLARD MR#: [id number] : 2005 Acct:[id number] Age/Sex: 20 / F ADM Date: 03/25/25 Loc: [facility] 250-[address]: El Espitia D.O. Ordering Physician: El Espitia D.O. Date of Service: 03/25/25 Procedure(s): US OB BPP w non-stress Accession Number(s): [id number] cc: MADDIE COREA ; El Espitia D.O. [place] [address] Patient Name: SHILPI MILLARD MRN: [facility]:[id number] date: 2005 Sex: F Assigned Patient Location: [facility] Current Patient Location: [facility] Accession/Order Number: [id number] Exam Date: 03/25/2025 11:31 Report Date: 03/25/2025 11:32 At the request of: EL ESPITIA DO Procedure: US OB BPP w non-stress Biophysical profile. Reason for exam: Small for gestational age. COMPARISON: None. TECHNIQUE: Transabdominal imaging of the gravid uterus was obtained. FINDINGS: Biophysical profile is 8 out of 8. JOSEPH is normal at 10.0 cm. heart rate 171 bpm. US/US OB BPP w non-stress IMPRESSION: BPP 8 out of 8. Impression dictated by: Juan Ramon Lopez Jr., D.O. 03/25/2025 11:32 AM Dictation Location: [place] [address] Electronically authenticated by: [id number] Y Date: 03/25/2025 11:32 Dictated By: Juan Ramon Lopez M.D. Signed By: 03/25/25 1135 DD/ 1132 TD/TT: Hydraulic Strainer Operator: [facility] [employer] Radiology Study observation (narrative) [facility] US OB BPP W NON-STRESS Ordered By: Radiologist Radiology on 03-25-2025 [facility] [employer] Work Phone: US OB FOLLOW UP TRANSABDOMIN AL APPROACHon 03-20-2025 US OB FOLLOW UP TRANSABDOMINAL APPROACH EXAM: US OB FOLLOW UP TRANSABDOMINAL APPROACH HISTORY: Inconsistent size. A1. ROXANA 05/15/2025. [...] II, MD, PHD at 23-Mar-2025 08:55:00 PM [facility] Normal Not Available Comment on above: Order Comment: US OB SCAN FOR GROWTH Estimated Date of Delivery: 05/15/25 Gestational Age as of 03/06/2025: 31w6d US OB LIMITED 1+ FETUSESon 0 03-06-2025 US OB LIMITED 1+ FETUSES EXAM: US OB LIMITED 1+ FETUSES HISTORY: Follow up anatomy. COMPARISON: None available. [...] II, MD, PHD at 08-Mar-2025 06:48:44 PM [facility] Normal Not Available Comment on above: Order Comment: US OB INCOMPLETE ANATOMY Estimated Date of Delivery: 05/15/25 Gestational Age as of 02/20/2025: 28w0d Urinalysis macro (dipstick) panel (U)on 03-06-2025 Bilirubin, UA Negative Negative - 4(70) +++ mg/dL [facility] Blood, UA Negative Negative - 50 Rambo/mcL [facility] Clarity, UA Clear [facility] re Color, UA Yellow [facility] Glucose, UA Negative Negative - 1999(110) ++++ mg/dL [facility] Interpretation and review of laboratory results Normal [facility] Ketones, UA Negative Negative - 160(16) ++++ mg/dL [facility] Leukocytes, UA Negative Negative - 500+++ Charity/mcL [facility] Nitrite, UA Negative Negative - Positive [facility] pH, UA 6.5 5 - 9 [facility] Protein, UA Negative Negative - 1999(20) ++++ mg/dL [facility] Spec Grav, UA 1.02 1 - 1.03 [facility] Urobilinogen, UA 0.2 0.2 - 12 mg/dL [facility] Urinalysis macro (dipstick) panel (U)on 02-20-2025 Bilirubin, UA Negative Negative - 4(70) +++ mg/dL [facility] Blood, UA Negative Negative - 50 Rambo/mcL [facility] Healthcare Clarity, UA Clear [facility] re Color, UA Yellow [facility] Glucose, UA Negative Negative - 1999(110) ++++ mg/dL [facility] Interpretation and review of laboratory results Normal [facility] Ketones, UA Negative Negative - 160(16) ++++ mg/dL [facility] Leukocytes, UA Trace Negative - 500+++ Charity/mcL [facility] Healthcare Nitrite, UA Negative Negative - Positive [facility] pH, UA 7 5 - 9 [facility] Protein, UA Trace Negative - 1999(20) ++++ mg/dL [facility] Spec Grav, UA 1.02 1 - 1.03 [facility] Urobilinogen, UA 0.2 0.2 - 12 mg/dL [facility] UA (CLEAN/CATCH) CLINICAL SYSTEMS EDUCATOR/VAMSI RO IF IND.on 02-13-2025 BILIRUBIN URINE Negative NEGATIVE [facility] BLOOD URINE LARGE Abnormal NEGATIVE [facility] re Clarity (U) CLOUDY Abnormal CLEAR [facility] Color (U) LT. YELLOW YELLOW [facility] GLUCOSE URINE UA Negative NEGATIVE mg/dL [facility] Interpretation and review of laboratory results Abnormal [facility] Ketones Ql (U) Negative NEGATIVE mg/dL [facility] Leukocyte esterase Test strip Ql (U) TRACE Abnormal NEGATIVE [facility] NITRITE URINE Negative NEGATIVE [facility] pH (U) 7.0 [pH] 5.0 - 9.0 [facility] PROTEIN URINE Negative NEG/TRACE mg/dL [facility] SPECIFIC GRAVITY URINE 1.010 1.005 - 1.025 [facility] URINE MICROSCOPIC INDICATED YES [facility] UROBILINOGEN URINE 0.2 EU/dL 0.2 - 1.0 EU/dL [facility] ALL CBC WITH AUTO DIFFon BASOPHILS ABSOLUTE AUTO 0 [facility] Basophils/100 WBC (Bld) 0.2 % 0.2 - 2.0 % [facility] Eosinophils/100 WBC (Bld) 0.6 % Low 0.9 - 7.0 % [facility] Erythrocyte distribution width (RBC) [Ratio] 12.8 % 11.0 - 15.0 % [facility] Hematocrit (Bld) [Volume fraction] 35.4 % Low 36.0 - 48.0 % [facility] Hemoglobin (Bld) [Mass/Vol] 11.9 g/dL Low 12.0 - 16.0 g/dL [facility] IMMATURE GRANULOCYTES ABS AUTO 0.08 High [facility] Immature granulocytes/100 WBC (Bld) 0.8 % High 0.0 - 0.5 % [facility] Interpretation and review of laboratory results Abnormal [facility] LYMPHOCYTES ABSOLUTE AUTO 1.3 [facility] Lymphocytes/100 WBC (Bld) 12.7 % Low 20.5 - 60.0 % [facility] MCH (RBC) [Entitic mass] 28.5 pg 26.7 - 34.0 pg [facility] MCHC (RBC) [Mass/Vol] 33.6 g/dL 29.9 - 35.2 g/dL [facility] MCV (RBC) [Entitic vol] 84.9 fL 81.0 - 99.0 fL [facility] MONOCYTES ABSOLUTE AUTO 0.5 [facility] Monocytes/100 WBC (Bld) 5.2 % 1.7 - 12.0 % [facility] NEUTROPHILS ABSOLUTE AUTO 8.2 High [facility] Neutrophils/100 WBC (Bld) 80.5 % High 43.0 - 75.0 % [facility] Platelet mean volume (Bld) [Entitic vol] 9.2 fL Low 9.5 - 13.5 fL [facility] are [facility] EO # 0.1 [facility] PLT 319 [facility] RBC 4.17 Low [facility] WBC 10.2 [facility] CA ECHO DOPPLER COMPLETEon 0 01-30-2025 [place] [address] Cardiology Report Signed Patient: SHILPI MILLARD MR#: [id number] : 2005 Acct:[id number] Age/Sex: 19 / F ADM Date: 01/30/25 Loc: CARD Attending Dr: El Espitia D.O. Ordering Physician: El Espitia D.O. Date of Service: 01/30/25 Procedure(s): CA echo doppler complete Accession Number(s): [id number] cc: MADDIE COREA ; El Espitia D.O. Patient Name: SHILPI MILLARD MR#: [id number] : 2005 Exam Date: 01/30/2025 Ordering Doctor: DR EL ESPITIA . ECHOCARDIOGRAM REPORT PROCEDURE: CA ECHO DOPPLER COMPLETE INDICATIONS: Near syncope episodes, 24 weeks COMPARISON: None. DESCRIPTION: COMPLETE ECHOCARDIOGRAM Real-time transthoracic echocardiography with 2D, M-mode, spectral and color flow Doppler performed. QUALITY: Technical quality was good. LEFT VENTRICLE: Normal chamber size. Normal left ventricular wall thickness. Normal systolic function. LV EF: Normal left ventricular ejection fraction, (55-60%). DIASTOLIC: Normal diastolic function. ATRIAL SEPTUM: Visually appears intact. LEFT ATRIUM: Normal chamber size. RIGHT ATRIUM: Normal chamber size. RIGHT VENTRICLE: Normal chamber size. Normal right ventricular systolic function. TRICUSPID VALVE: Normal mobility and thickness. No stenosis with trivial regurgitation. Unable to assess right-sided pressures due to lack of measurable tricuspid regurgitation. MITRAL VALVE: Normal mobility and thickness. No evidence of mitral valve stenosis. There is no mitral annular calcification. No mitral regurgitation. AORTIC VALVE: Normal trileaflet appearance. No visible sclerosis. Normal leaflet mobility. No evidence of aortic valve stenosis. No aortic regurgitation. AORTIC ROOT: Normal diameter and appearance. PULMONIC VALVE: Normal thickness and mobility. No stenosis. Trivial regurgitation. PERICARDIUM: No evidence of pericardial effusion. IVC: Collapses with inspirations. PLEURA: CONCLUSION: 1. Normal ventricular size and function. 2. No significant valvular dysfunction. 3. Unable to assess right-sided pressures due to lack of measurable tricuspid regurgitation. 4. No pericardial effusion. Adult Echocardiography Procedure Report Left Ventricle LVEDD (3.7 - 5.6 cm): 4.12 cm LVESD (2.2 - 4.0 cm): 2.76 cm LVIVS thickness (0.6 - 1.2 cm): 0.58 cm LVPW thickness (0.5 - 1.0 cm): 0.66 cm e': 0.25 m/s E - e': 3.69 LVOT Max Gradient: 2.14 mm[Hg] LVOT Area (cm2): 0.73 m/s Peak Velocity (LVOT): 0.73 m/s Mean Velocity (LVOT): 0.50 m/s LVOT Diameter 2.25 cm Left Atrium LA Volume Index (2D A2C): 32.01 ml/m2 Left Atrium Systolic Dimension: 2.54 cm Mitral Valve MV E to A Ratio: 2.57 Mitral Valve A-Wave Peak Velocity: 0.36 m/s Mitral Valve E-Wave Peak Velocity: 0.93 m/s Right Ventricle Aorta AO Root Diam: 2.81 cm Aortic Valve AoV Area (Peak Ronaldo): 3.19 cm2, 3.19 cm2 AoV Area (VTI): 3.76 cm2, 3.76 cm2 Peak Velocity(Antegrade Flow): 0.91 m/s Peak Gradient(Antegrade Flow): 3.33 mm[Hg] Mean Velocity(Antegrade Flow): 0.57 m/s Mean Gradient(Antegrade Flow): 1.56 mm[Hg] Velocity Time Integral: 17.65 cm Tricuspid Valve Pulmonic Valve Mean Gradient: 1.90 mm[Hg] Mean Velocity: 0.65 m/s Peak Velocity: 0.97 m/s, 0.82 m/s Peak Gradient: 2.66 mm[Hg], 3.75 mm[Hg] Right Atrium Right Atrium Systolic Pressure: 28.55 ml, 28.55 ml Dictated by: Hernando Ambrosio M.D. on 01/30/2025 at 20:08 Approved by: Hernando Ambrosio M.D. on 01/30/2025 at 20:11 Dictated By: HERNANDO AMBROSIO Signed By: 01/30/252011 (more content not included)... [facility] Radiology, Radiologist, MD - 01/30/2025 [place] [address] Cardiology Report Signed Patient: SHILPI MILLARD MR#: [id number] : 2005 Acct:[id number] Age/Sex: 19 / F ADM Date: 01/30/25 Loc: CARD Attending Dr: El Espitia D.O. Ordering Physician: El Espitia D.O. Date of Service: 01/30/25 Procedure(s): CA echo doppler complete Accession Number(s): [id number] cc: MADDIE COREA ; El Espitia D.O. Patient Name: SHILPI MILLARD MR#: [id number] : 2005 Exam Date: 01/30/2025 Ordering Doctor: DR EL ESPITIA . ECHOCARDIOGRAM REPORT PROCEDURE: CA ECHO DOPPLER COMPLETE INDICATIONS: Near syncope episodes, 24 weeks COMPARISON: None. DESCRIPTION: COMPLETE ECHOCARDIOGRAM Real-time transthoracic echocardiography with 2D, M-mode, spectral and color flow Doppler performed. QUALITY: Technical quality was good. LEFT VENTRICLE: Normal chamber size. Normal left ventricular wall thickness. Normal systolic function. LV EF: Normal left ventricular ejection fraction, (55-60%). DIASTOLIC: Normal diastolic function. ATRIAL SEPTUM: Visually appears intact. LEFT ATRIUM: Normal chamber size. RIGHT ATRIUM: Normal chamber size. RIGHT VENTRICLE: Normal chamber size. Normal right ventricular systolic function. TRICUSPID VALVE: Normal mobility and thickness. No stenosis with trivial regurgitation. Unable to assess right-sided pressures due to lack of measurable tricuspid regurgitation. MITRAL VALVE: Normal mobility and thickness. No evidence of mitral valve stenosis. There is no mitral annular calcification. No mitral regurgitation. AORTIC VALVE: Normal trileaflet appearance. No visible sclerosis. Normal leaflet mobility. No evidence of aortic valve stenosis. No aortic regurgitation. AORTIC ROOT: Normal diameter and appearance. PULMONIC VALVE: Normal thickness and mobility. No stenosis. Trivial regurgitation. PERICARDIUM: No evidence of pericardial effusion. IVC: Collapses with inspirations. PLEURA: CONCLUSION: 1. Normal ventricular size and function. 2. No significant valvular dysfunction. 3. Unable to assess right-sided pressures due to lack of measurable tricuspid regurgitation. 4. No pericardial effusion. Adult Echocardiography Procedure Report Left Ventricle LVEDD (3.7 - 5.6 cm): 4.12 cm LVESD (2.2 - 4.0 cm): 2.76 cm LVIVS thickness (0.6 - 1.2 cm): 0.58 cm LVPW thickness (0.5 - 1.0 cm): 0.66 cm e': 0.25 m/s E - e': 3.69 LVOT Max Gradient: 2.14 mm[Hg] LVOT Area (cm2): 0.73 m/s Peak Velocity (LVOT): 0.73 m/s Mean Velocity (LVOT): 0.50 m/s LVOT Diameter 2.25 cm Left Atrium LA Volume Index (2D A2C): 32.01 ml/m2 Left Atrium Systolic Dimension: 2.54 cm Mitral Valve MV E to A Ratio: 2.57 Mitral Valve A-Wave Peak Velocity: 0.36 m/s Mitral Valve E-Wave Peak Velocity: 0.93 m/s Right Ventricle Aorta AO Root Diam: 2.81 cm Aortic Valve AoV Area (Peak Ronaldo): 3.19 cm2, 3.19 cm2 AoV Area (VTI): 3.76 cm2, 3.76 cm2 Peak Velocity(Antegrade Flow): 0.91 m/s Peak Gradient(Antegrade Flow): 3.33 mm[Hg] Mean Velocity(Antegrade Flow): 0.57 m/s Mean Gradient(Antegrade Flow): 1.56 mm[Hg] Velocity Time Integral: 17.65 cm Tricuspid Valve Pulmonic Valve Mean Gradient: 1.90 mm[Hg] Mean Velocity: 0.65 m/s Peak Velocity: 0.97 m/s, 0.82 m/s Peak Gradient: 2.66 mm[Hg], 3.75 mm[Hg] Right Atrium Right Atrium Systolic Pressure: 28.55 ml, 28.55 ml Dictated by: Hernando Ambrosio M.D. on 01/30/2025 at 20:08 Approved by: Hernando Ambrosio M.D. on 01/30/2025 at 20:11 Dictated By: HERNANDO AMBROSIO Signed By: 01/30/252011 DD/ 10 TD/TT: Hydraulic Strainer Operator: [facility] Radiology Study observation (narrative) [facility] CA ECHO DOPPLER COMPLETEOrde red By: Radiologist Radiology on 01-30-2025 [facility] Work Phone: Urinalysis macro (dipstick) panel (U)on 01-23-2025 Bilirubin, UA Negative Negative - 4(70) +++ mg/dL [facility] Blood, UA Positive Negative - 50 Rambo/mcL [facility] Comment on above: trace-intact Clarity, UA Clear [facility] re Color, UA Yellow [facility] Glucose, UA Negative Negative - 2000(110) ++++ mg/dL [facility] Interpretation and review of laboratory results Abnormal [facility] Ketones, UA Negative Negative - 160(16) ++++ mg/dL [facility] Leukocytes, UA Trace Negative - 500+++ Charity/mcL [facility] Nitrite, UA Negative Negative - Positive [facility] pH, UA 6 5 - 9 [facility] Protein, UA Negative Negative - 2000(20) ++++ mg/dL [facility] Spec Grav, UA 1.025 1 - 1.03 [facility] Urobilinogen, UA 0.2 0.2 - 12 mg/dL [facility] ALL CBC WITH AUTO DIFFon BASOPHILS ABSOLUTE AUTO 0 [facility] Basophils/100 WBC (Bld) 0.3 % 0.2 - 2.0 % [facility] Eosinophils/100 WBC (Bld) 0.3 % Low 0.9 - 7.0 % [facility] Erythrocyte distribution width (RBC) [Ratio] 13 % 11.0 - 15.0 % [facility] Hematocrit (Bld) [Volume fraction] 34.9 % Low 36.0 - 48.0 % [facility] Hemoglobin (Bld) [Mass/Vol] 11.9 g/dL Low 12.0 - 16.0 g/dL [facility] IMMATURE GRANULOCYTES ABS AUTO 0.07 High [facility] Immature granulocytes/100 WBC (Bld) 0.6 % High 0.0 - 0.5 % [facility] Interpretation and review of laboratory results Abnormal [facility] LYMPHOCYTES ABSOLUTE AUTO 1.5 [facility] Lymphocytes/100 WBC (Bld) 12.8 % Low 20.5 - 60.0 % [facility] MCH (RBC) [Entitic mass] 28.6 pg 26.7 - 34.0 pg [facility] (RBC) [Mass/Vol] 34.1 g/dL 29.9 - 35.2 g/dL [facility] MCV (RBC) [Entitic vol] 83.9 fL 81.0 - 99.0 fL [facility] MONOCYTES ABSOLUTE [facility]O 0.7 [facility] Monocytes/100 WBC (Bld) 5.8 % 1.7 - 12.0 % [facility] NEUTROPHILS ABSOLUTE AUTO 9.6 High [facility] Neutrophils/100 WBC (Bld) 80.2 % High 43.0 - 75.0 % [facility] Platelet mean volume (Bld) [Entitic vol] 9.1 fL Low 9.5 - 13.5 fL [facility]c are TBH EO # 0 [facility] PLT 316 [facility] TB RBC 4.16 Low [facility] TB WBC 12 High [facility] e CL[facility]ISYNC [facility] e No Panel Informationon 01-01 STAPHYLOCOCCUS EPIDERMIDIS, HAEMOLYTICUS, LUGDUNENSIS, SAPROPHYTICUS (URINA 0 [facility] STAPHYLOCOCCUS EPIDERMIDIS, HAEMOLYTICUS, LUGDUNENSIS, SAPROPHYTICUS (URINA Not detected [facility] URINARY TRACT INFECTION (HTR X)on 01-01-2025 ACINETOBACTER BAUMANII 0 [facility] ACINETOBACTER BAUMANII Not detected [facility] TYLER ALBICANS, PARAPSILOSIS, TROPICALIS 0 [facility] TYLER ALBICANS, PARAPSILOSIS, TROPICALIS Not detected [facility] TYLER GLABRATA 0 [facility] TYLER GLABRATA Not detected [facility]USEI [facility] KRUSEI Not detected [facility] CITROBACTER FREUNDII 0 [facility] CITROBACTER FREUNDII Not detected NO [facility] ENTEROBACTER AEROGENES, CLOACAE 0 [facility] Healthmd re ENTEROBACTER AEROGENES, CLOACAE Not detected [facility] re ENTEROCOCCUS FAECALIS, FAECIUM 0 [facility] ENTEROCOCCUS FAECALIS, FAECIUM Not detected [facility] [...] A short-term follow-up ultrasound is recommended. Electronically Signed:Electronicall y signed by ARTURO PUENTE II, MD, PHD at 01-Jan-2025 08:23:57 AM [facility] Normal Not Available Comment on above: Order Comment: US OB ANATOMY SINGLE W US OB CERVICAL LENGTH Estimated Date of Delivery: None noted. Gestational Age as of 11/26/2024: Unknown Urinalysis macro (dipstick) panel (U)on 11-26-2024 Bilirubin, UA Negative Negative - 4(70) +++ mg/dL [facility] Blood, UA Negative Negative - 50 Rambo/mcL [facility] Clarity, UA Clear [facility] re Color, UA Yellow [facility] Glucose, UA Negative Negative - 1999(110) ++++ mg/dL [facility] Interpretation and review of laboratory results Normal [facility] Ketones, UA Negative Negative - 160(16) ++++ mg/dL [facility] Leukocytes, UA Negative Negative - 500+++ Charity/mcL [facility] Nitrite, UA Negative Negative - Positive [facility] pH, UA 6 5 - 9 [facility] [employer] Protein, UA Negative Negative - 1999(20) ++++ mg/dL [facility] Spec Grav, UA 1.025 1 - 1.03 [facility] Urobilinogen, UA 0.2 0.2 - 12 mg/dL [facility] Health[facility] e ALL CBC WITH AUTO DIFFon BASOPHILS ABSOLUTE AUTO 0 [facility] Basophils/100 WBC (Bld) 0.2 % 0.2 - 2.0 % [facility] Eosinophils/100 WBC (Bld) 0.2 % Low 0.9 - 7.0 % [facility] Erythrocyte distribution width (RBC) [Ratio] 13.5 % 11.0 - 15.0 % [facility] Hematocrit (Bld) [Volume fraction] 36.7 % 36.0 - 48.0 % [facility] Healthcar e Hemoglobin (Bld) [Mass/Vol] 12.5 g/dL 12.0 - 16.0 g/dL [facility] IMMATURE GRANULOCYTES ABS AUTO 0.04 High [facility] Immature granulocytes/100 WBC (Bld) 0.3 % 0.0 - 0.5 % [facility] Interpretation and review of laboratory results Abnormal [facility] LYMPHOCYTES ABSOLUTE AUTO 1.7 [facility] Lymphocytes/100 WBC (Bld) 14 % Low 20.5 - 60.0 % [facility] MCH (RBC) [Entitic mass] 27.9 pg 26.7 - 34.0 pg [facility] MCHC (RBC) [Mass/Vol] 34.1 g/dL 29.9 - 35.2 g/dL [facility] MCV (RBC) [Entitic vol] 81.9 fL 81.0 - 99.0 fL [facility] MONOCYTES ABSOLUTE AUTO 0.7 [facility] Monocytes/100 WBC (Bld) 5.6 % 1.7 - 12.0 % [facility] NEUTROPHILS ABSOLUTE AUTO 9.7 High [facility] Neutrophils/100 WBC (Bld) 79.7 % High 43.0 - 75.0 % [facility] Platelet mean volume (Bld) [Entitic vol] 9.2 fL Low 9.5 - 13.5 fL [facility] # 0 [facility] TB PLT 314 [facility] TB RBC 4.48 [facility] TB WBC 12.2 High [facility] HCG ( test) Ql (U)o n 10-25-2024 Preg Test, Ur Positive Negative [facility] e Urinalysis macro (dipstick) panel (U)on 10-25-2024 Bilirubin, UA Negative Negative - 4(70) +++ mg/dL [facility] Blood, UA Negative Negative - 50 Rambo/mcL [facility] Clarity, UA Clear [facility] re Color, UA Yellow [facility] e Glucose, UA Negative Negative - 2000(110) ++++ mg/dL [facility] Interpretation and review of laboratory results Normal [facility] Ketones, UA Negative Negative - 160(16) ++++ mg/dL [facility] Leukocytes, UA Negative Negative - 500+++ Charity/mcL [facility] Nitrite, UA Negative Negative - Positive [facility] pH, UA 6 5 - 9 [facility] e Protein, UA Negative Negative - 2000(20) ++++ mg/dL [facility] Spec Grav, UA 1.025 1 - 1.03 [facility] Urobilinogen, UA 0.2 0.2 - 12 mg/dL [facility]H PREG QUANT HCGon -26-2 024 HCG QUANTITATIVE 8309 mIU/mL [facility] Comment on above: 5-50 0.2-1 WEEK 50-500 1-2 WEEKS 100-5,000 2-3 WEEKS 500-10,000 3-4 WEEKS 1,000-50,000 4-5 WEEKS 10,000-100,000 5-6 WEEKS 15,000-200,000 6-8 WEEKS 10,000-100,000 2-3 [facility] PREG QUANT HCGon -24-2 024 HCG QUANTITATIVE 3351 mIU/mL [facility] Comment on above: 5-50 0.2-1 WEEK 50-500 1-2 WEEKS 100-5,000 2-3 WEEKS 500-10,000 3-4 WEEKS 1,000-50,000 4-5 WEEKS 10,000-100,000 5-6 WEEKS 15,000-200,000 6-8 WEEKS 10,000-100,000 2-3 [facility] ALL CBC WITH AUTO DIFFon BASOPHILS ABSOLUTE AUTO 0.0 [facility] Basophils/100 WBC (Bld) 0.3 % 0.2 - 2.0 % [facility] Eosinophils/100 WBC (Bld) 0.8 % Low 0.9 - 7.0 % [facility] Erythrocyte distribution width (RBC) [Ratio] 13.0 % 11.0 - 15.0 % [facility] Hematocrit (Bld) [Volume fraction] 37.4 % 36.0 - 48.0 % [facility] e Hemoglobin (Bld) [Mass/Vol] 12.1 g/dL 12.0 - 16.0 g/dL [facility] IMMATURE GRANULOCYTES ABS AUTO 0.02 [facility] Immature granulocytes/100 WBC (Bld) 0.3 % 0.0 - 0.5 % [facility] Interpretation and review of laboratory results Abnormal [facility] LYMPHOCYTES ABSOLUTE AUTO 1.5 [facility] Lymphocytes/100 WBC (Bld) 24.5 % 20.5 - 60.0 % [facility] MCH (RBC) [Entitic mass] 26.5 pg Low 26.7 - 34.0 pg [facility] MCHC (RBC) [Mass/Vol] 32.4 g/dL 29.9 - 35.2 g/dL [facility] MCV (RBC) [Entitic vol] 81.8 fL 81.0 - 99.0 fL [facility] MONOCYTES ABSOLUTE AUTO 0.3 [facility] Monocytes/100 WBC (Bld) 4.5 % 1.7 - 12.0 % [facility] NEUTROPHILS ABSOLUTE AUTO 4.1 [facility] Neutrophils/100 WBC (Bld) 69.6 % 43.0 - 75.0 % [facility] Platelet mean volume (Bld) [Entitic vol] 9.5 fL 9.5 - 13.5 fL [facility] EO # 0.1 [facility] PLT 318 [facility] RBC 4.57 [facility] WBC 6.0 [facility] Urine Cultureon 04-18-2024 Bacteria identified Cx Nom (U) 50,000 colonies/ml mixed bacterial skin contaminants 2 Days PERFORMED BY: [place] [address] PATHOLOGIST [employer] MADAN TRIVEDI M.D. Normal [facility] Comment on above: Performed By: #### C UU #### [facility] [address] Physician Referralon 024 Physician Referral [phone] [id number] Normal [facility] ER URINE PROFILEon 3 Bilirubin Ql (U) Negative Normal NEGATIVE [facility] Comment on above: Performed By: #### E RUR, PREGU #### [facility] [address] [address] [address] Mikala Ramsay Clarity (U) CLEAR Normal CLEAR [facility] Comment on above: Performed By: #### E RUR, PREGU #### [facility] [address] [place] [address] Dr. Mikala Ramsay Color (U) LT. YELLOW Normal YELLOW Comment on above: Performed By: #### E RUR, PREGU #### [facility] [address] [place] [address] Dr. Mikala Ramsay ERUAHHenri A micrscopic examination will be performed if indicated. Normal [facility] Comment on above: Performed By: #### E RUR, PREGU #### [facility] [address] [place] [address] Dr. Mikala Ramsay Glucose Ql (U) Negative Normal NEGATIVE [facility] Comment on above: Performed By: #### E RUR, PREGU #### [facility] [address] [place] [address] Dr. Mikala Ramsay Hemoglobin Ql (U) Negative Normal NEGATIVE [facility] Comment on above: Performed By: #### E RUR, PREGU #### [facility] [address] [place] [address] Dr. Mikala Ramsay Ketones Ql (U) Negative Normal NEGATIVE [facility] Comment on above: Performed By: #### E RUR, PREGU #### [facility] [address] [place] [address] Dr. Mikala Ramsay LEUKOCYTES Negative Normal NEGATIVE Comment on above: Performed By: #### E RUR, PREGU #### [facility] [address] [place] [address] Dr. Mikala Ramsay Nitrite Ql (U) Negative Normal NEGATIVE [facility] Comment on above: Performed By: #### E RUR, PREGU #### [facility] [address] [place] [address] Dr. Mikala Ramsay pH (U) 8.0 [pH] Normal 5-[address] [facility] Comment on above: Performed By: #### E RUR, PREGU #### [facility] [address] [address] [address] Mikala Ramsay SPEC GRAVITY 1.015 Normal 1.005-<=1.025 [facility] Comment on above: Performed By: #### E RUR, PREGU #### [facility] [address] [place] [address] Dr. Mikala Ramsay UA PROTEIN Negative Normal NEGATIVE/ TRACE [facility] Comment on above: Performed By: #### E RUR, PREGU #### [facility] [address] [place] [address] Dr. Mikala Ramsay UR MICRO IND NOT INDICATED Normal [facility] Comment on above: Performed By: #### E RUR, PREGU #### [facility] [address] [place] [address] Dr. Mikala Ramsay Urobilinogen Qn (U) 0.2 {Jose'U}/dL Normal 0.2 - 1. [address] [facility] Comment on above: Performed By: #### E RUR, PREGU #### [facility] [address] [place] [address] Dr. Mikala Ramsay URon 11-25-2022 , QUAL Negative Normal NEGATIVE [facility] Comment on above: Performed By: #### E RUR, PREGU #### [facility] [address] [place] [address] Dr. Mikala Ramsay US PELVIS TRANSVAGon 023 US PELVIS TRANSVAG US PELVIS TRANSVAG HISTORY: Abdominal pain COMPARISONS: None TECHNIQUE: Real-time sonography of the pelvis was performed. FINDINGS: UTERUS: Normal in size and echogenicity. The uterus measures 7.8 x 4.8 x 3.8 cm. MYOMETRIUM:Unremarka ble. ENDOMETRIUM: The endometrium is within normal limits. [...] 17:05 Normal [facility] XR KUB 1 VIEWon 11-25-2022 XR [...] 14:56 Normal [facility] CBC AUTO DIFFon 09-06-2022 BASO # 0.0 103/ul Normal 0.0-0.1 Comment on above: Performed By: #### C BC #### [facility] [address] [place] [address] Dr. Mikala Ramsay Basophils/100 WBC (Bld) 0.3 % Normal 0.2-2.0 Comment on above: Performed By: #### C BC #### [facility] [address] [place] [address] Dr. Mikala Ramsay EO # 0.0 103/ul Normal 0.0-0.7 Comment on above: Performed By: #### C BC #### [facility] [address] [place] [address] Dr. Mikala Ramsay Eosinophils/100 WBC (Bld) 0.6 % Critically low 0.9-7.0 Comment on above: Performed By: #### C BC #### [facility] [address] [place] [address] Dr. Mikala Ramsay Erythrocyte distribution width (RBC) [Ratio] 14.0 % Normal 11.0-15.0 Comment on above: Performed By: #### C BC #### [facility] [address] [place] [address] Dr. Mikala Ramsay Hematocrit (Bld) [Volume fraction] 38.7 % Normal 36.0-48.0 Comment on above: Performed By: #### C BC #### [facility] [address] [place] [address] Dr. Mikala Ramsay Hemoglobin (Bld) [Mass/Vol] 12.5 g/dL Normal 12.0-16.0 Comment on above: Performed By: #### C BC #### [facility] [address] [place] [address] Dr. Mikala Ramsay IG # 0.02 10e3/ul Normal 0.00-0.03 Comment on above: Performed By: #### C BC #### [facility] [address] [place] [address] Dr. Mikala Ramsay IG % 0.3 % Normal 0.0-0.5 Comment on above: Performed By: #### C BC #### [facility] [address] [place] [address] Dr. Mikala Ramsay LYMPH # 1.2 103/ul Normal 1.2-3.8 Comment on above: Performed By: #### C BC #### [facility] [address] [place] [address] Dr. Mikala Ramsay Lymphocytes/100 WBC (Bld) 17.4 % Critically low 20.5-60.0 Comment on above: Performed By: #### C BC #### [facility] [address] [place] [address] Dr. Mikala Ramsay MANUAL DIFF REQ NO Normal [facility] Comment on above: Performed By: #### C BC #### [facility] [address] [place] [address] Dr. Mikala Ramsay MCH (RBC) [Entitic mass] 26.0 pg Critically low 26.7-34.0 Comment on above: Performed By: #### C BC #### [facility] [address] [place] [address] Dr. Mikala Ramsay MCHC (RBC) [Mass/Vol] 32.3 g/dL Normal 29.9-35.2 Comment on above: Performed By: #### C BC #### [facility] [address] [address] [address] Mikala Ramsay MCV (RBC) [Entitic vol] 80.5 fL Critically low 81.0-99.0 Comment on above: Performed By: #### C BC #### [facility] [address] [address] [address] Mikala Ramsay MONO # 0.4 103/ul Normal 0.3-0.8 Comment on above: Performed By: #### C BC #### [facility] [address] [address] [address] Mikala Ramsay Monocytes/100 WBC (Bld) 5.9 % Normal 1.7-12.0 Comment on above: Performed By: #### C BC #### [facility] [address] [address] [address] Mikala Ramsay NEUT # 5.0 103/ul Normal 1.4-6.5 Comment on above: Performed By: #### C BC #### [facility] [address] [address] [address] Mikala Ramsay Neutrophils/100 WBC (Bld) 75.5 % Critically high 43.0-75.0 Comment on above: Performed By: #### C BC #### [facility] [address] [address] [address] Mikala Ramsay Platelet mean volume (Bld) [Entitic vol] 9.2 fL Critically low 9.5-13.5 Comment on above: Performed By: #### C BC #### [facility] [address] [address] [address] Mikala Ramsay PLT 286 103/ul Normal 150-[address] [facility] Comment on above: Performed By: #### C BC #### [facility] [address] [address] [address] Mikala Ramsay RBC 4.81 106/ul Normal 4.20-5.[address] [facility] Comment on above: Performed By: #### C BC #### [facility] [address] [address] [address] Mikala Ramsay WBC 6.7 103/ul Normal 4.0-11.0 Comment on above: Performed By: #### C BC #### [facility] [address] [address] [address] Mikala Ramsay PREG HCG QUALon 09-06-2022 , QUAL Negative Normal NEGATIVE [facility] Comment on above: Performed By: #### P REG #### [facility] [address] [place] [address] Dr. Mikala Ramsay PROF CHEM 8 (BAS METB)on Anion gap [Moles/Vol] 11.1 mmol/L Normal Comment on above: Performed By: #### B MP #### [facility] [address] [place] [address] Dr. Mikala Ramsay Calcium [Mass/Vol] 9.0 mg/dL Normal 8.5-10.1 [facility] Comment on above: Performed By: #### B MP #### [facility] [address] [place] [address] Dr. Mikala Ramsay Chloride [Moles/Vol] 106 mmol/L Normal 98-107 Comment on above: Performed By: #### B MP #### [facility] [address] [place] [address] Dr. Mikala Ramsay CO2 [Moles/Vol] 25.6 mmol/L Normal 21.0-32.0 [facility] Comment on above: Performed By: #### B MP #### [facility] [address] [place] [address] Dr. Mikala Ramsay Creatinine [Mass/Vol] 0.72 mg/dL Normal 0.55-1.02 Comment on above: Performed By: #### B MP #### [facility] [address] [place] [address] Dr. Mikala Ramsay EGFR-AF WELSH >60 Normal >=60 [facility] Comment on above: Performed By: #### B MP #### [facility] [address] [address] [address] Mikala Ramsay EGFR-NON AF WELSH >60 Normal >=[address] [facility] Comment on above: Performed By: #### B MP #### [facility] [address] [address] [address] Mikala Ramsay Glucose [Mass/Vol] 84 mg/dL Normal 74-106 [facility] Comment on above: Performed By: #### B MP #### [facility] [address] [address] [address] Mikala Ramsay Potassium [Moles/Vol] 3.7 mmol/L Normal 3.5-5.[address] [facility] Comment on above: Performed By: #### B MP #### [facility] [address] [place] [address] Dr. Mikala Ramsay Sodium [Moles/Vol] 139 mmol/L Normal 136-145 [facility] Comment on above: Performed By: #### B MP #### [facility] [address] [place] [address] Dr. Mikala Ramsay Urea nitrogen [Mass/Vol] 10.0 mg/dL Normal 6.4-19.[address] [facility] Comment on above: Performed By: #### B MP #### [facility] [address] [place] [address] Dr. Mikala Ramsay Urea nitrogen/Creatinine [Mass ratio] 13.9 mg/mg Normal Comment on above: Performed By: #### B MP #### [facility] [address] [place] [address] Dr. Mikala Ramsay CBC AUTO DIFFon 08-16-2022 BASO # 0.0 103/ul Normal 0.0-0.1 Comment on above: Performed By: #### C BC #### [facility] [address] [place] [address] Dr. Mikala Ramsay Basophils/100 WBC (Bld) 0.6 % Normal 0.2-2.[address] [facility] Comment on above: Performed By: #### C BC #### [facility] [address] [place] [address] Dr. Mikala Ramsay EO # 0.1 103/ul Normal 0.0-0.[address] [facility] Comment on above: Performed By: #### C BC #### [facility] [address] [place] [address] Dr. Mikala Ramsay Eosinophils/100 WBC (Bld) 1.3 % Normal 0.9-7.0 Comment on above: Performed By: #### C BC #### [facility] [address] [place] [address] Dr. Mikala Ramsay Erythrocyte distribution width (RBC) [Ratio] 14.5 % Normal 11.0-15.[address] [facility] Comment on above: Performed By: #### C BC #### [facility] [address] [place] [address] Dr. Mikala Ramsay Hematocrit (Bld) [Volume fraction] 37.6 % Normal 36.0-48.0 Comment on above: Performed By: #### C BC #### [facility] [address] [place] [address] Dr. Mikala Ramsay Hemoglobin (Bld) [Mass/Vol] 12.2 g/dL Normal 12.0-16.[address] [facility] Comment on above: Performed By: #### C BC #### [facility] [address] [place] [address] Dr. Mikala Ramsay IG # 0.02 10e3/ul Normal 0.00-0.[address] [facility] Comment on above: Performed By: #### C BC #### [facility] [address] [place] [address] Dr. Mikala Ramsay IG % 0.3 % Normal 0.0-0.[address] [facility] Comment on above: Performed By: #### C BC #### [facility] [address] [place] [address] Dr. Mikala Ramsay LYMPH # 2.1 103/ul Normal 1.2-3.[address] [facility] Comment on above: Performed By: #### C BC #### [facility] [address] [place] [address] Dr. Mikala Ramsay Lymphocytes/100 WBC (Bld) 33.4 % Normal 20.5-60.0 Comment on above: Performed By: #### C BC #### [facility] [address] [place] [address] Dr. Mikala Ramsay MANUAL DIFF REQ NO Normal [facility] Comment on above: Performed By: #### C BC #### [facility] [address] [place] [address] Dr. Mikala Ramsay MCH (RBC) [Entitic mass] 26.2 pg Critically low 26.7-34.0 Comment on above: Performed By: #### C BC #### [facility] [address] [place] [address] Dr. Mikala Ramsay MCHC (RBC) [Mass/Vol] 32.4 g/dL Normal 29.9-35.2 Comment on above: Performed By: #### C BC #### [facility] [address] [place] [address] Dr. Mikala Ramsay MCV (RBC) [Entitic vol] 80.7 fL Critically low 81.0-99.0 Comment on above: Performed By: #### C BC #### [facility] [address] [place] [address] Dr. Mikala Ramsay MONO # 0.4 103/ul Normal 0.3-0.8 Comment on above: Performed By: #### C BC #### [facility] [address] [place] [address] Dr. Mikala Ramsay Monocytes/100 WBC (Bld) 6.2 % Normal 1.7-12.[address] [facility] Comment on above: Performed By: #### C BC #### [facility] [address] [place] [address] Dr. Mikala Ramsay NEUT # 3.7 103/ul Normal 1.4-6.[address] [facility] Comment on above: Performed By: #### C BC #### [facility] Laboratory [address] [place] [address] Dr. Mikala Ramsay Neutrophils/100 WBC (Bld) 58.2 % Normal 43.0-75.0 Comment on above: Performed By: #### C BC #### [facility] Laboratory [address] [address] [address] Mikala Ramsay Platelet mean volume (Bld) [Entitic vol] 9.3 fL Critically low 9.5-13.5 Comment on above: Performed By: #### C BC #### [facility] Laboratory [address] [address] [address] Mikala Ramsay PLT 310 103/ul Normal 150-[address] [facility] Comment on above: Performed By: #### C BC #### [facility] Laboratory [address] [address] [address] Mikala Ramsay RBC 4.66 106/ul Normal 4.20-5.40 Comment on above: Performed By: #### C BC #### [facility] Laboratory [address] [address] [address] Mikala Ramsay WBC 6.3 103/ul Normal 4.0-11.0 Comment on above: Performed By: #### C BC #### [facility] Laboratory [address] [address] [address] Mikala Ramsay XR elbow LT min 3V*on 2021 XR elbow LT min 3V* [facility] [place] Other XR elbow LT min 3V* [facility] Other XR elbow LT min 3V* [address] [place] [address] [employer] Other XR elbow LT min 3V* [address] [place] Other XR elbow LT min 3V* [facility] [employer] Other XR elbow LT min 3V* Signed [facility] [place] Other XR elbow LT min 3V* Patient: Shilpi Millard MR#: [id number] [facility] [place] Other XR elbow LT min 3V* : 2005 Acct:[id number] [employer] Other XR elbow LT min 3V* Age/Sex: 16 / F ADM Date: 01/10/22 [employer] Other XR elbow LT min 3V* Loc: XDUCLY Room: Type: [facility] [employer] Other XR elbow LT min 3V* Attending Dr: Lynette Flores [facility] [employer] Other XR elbow LT min 3V* Ordering Provider: LYNETTE FLORES [facility] [employer] Other XR elbow LT min 3V* Date of Service: 01/10/22 [employer] Other XR elbow LT min 3V* XR/XR elbow LT min 3V*: Injury of left elbow, initial encounter [employer] Other XR elbow LT min 3V* Copies to: LYNETTE FLORES [facility] [employer] Other XR elbow LT min 3V* XR elbow LT min 3V* 01/10/2022 10:51 AM [employer] Other XR elbow LT min 3V* SIGNS AND SYMPTOMS: Injury of left elbow, left elbow pain [employer] Other XR elbow LT min 3V* PROTOCOL: Frontal, lateral, and oblique radiographs of the left elbow [employer] Other XR elbow LT min 3V* COMPARISON: None [employer] Other XR elbow LT min 3V* FINDINGS: [employer] Other XR elbow LT min 3V* There is no fracture or dislocation. No joint effusion. No soft tissue swelling. The joint spaces [employer] Other XR elbow LT min 3V* are preserved. N [facility] [place] [employer] Other XR elbow LT min 3V* XR/XR elbow LT min 3V* [employer] Other XR elbow LT min 3V* IMPRESSION: [facility] Other XR elbow LT min 3V* No acute bony injury. [employer] Other XR elbow LT min 3V* Impression dictated by: Johnson Grijalva M.D.01/10/2022 11:26 AM [employer] Other XR elbow LT min 3V* Dictation Location: [facility] [place] [address] [place] [employer] Other XR elbow LT min 3V* Transcribed By: PWS 01/10/22 1126 [employer] Other XR elbow LT min 3V* Dictated By: Johnson Grijalva II, MD 01/10/22 [facility] [employer] Other XR elbow LT min 3V* Signed By: [employer] Other XR elbow LT min 3V* 01/10/22 1126 [address] [place] [employer] Other [employer] St[employer] 11-03-2021 S. pyogenes Org specific cx Ql (Throat) Negative [employer] Other [employer] Other Vital Signs Date Time Vital Sign Value Performing Clinician Facility 04-08-2025 11:15-0400 Body mass index (BMI) [Ratio] 26.02 kg/m2 Nhung LAUREANO Work Phone: [facility] [employer] 04-08-2025 11:15-0400 Body weight 68.77 kg Nhung LAUREANO Work Phone: [facility] [employer] 04-08-2025 11:15-0400 Diastolic blood pressure 70 mm[Hg] Nhung LAUREANO Work Phone: [facility] 04-08-2025 11:15-0400 Systolic blood pressure 102 mm[Hg] Nhung LAUREANO Work Phone: [facility] 03-20-2025 10:25-0400 Body mass index (BMI) [Ratio] 25.03 kg/m2 El Nupur DO Work Phone: [facility] 03-20-2025 10:25-0400 Body weight 66.13 kg El Nupur DO Work Phone: [facility] 03-20-2025 10:25-0400 Diastolic blood pressure 74 mm[Hg] El Nupur DO Work Phone: [facility] 03-20-2025 10:25-0400 Systolic blood pressure 104 mm[Hg] El Nupur DO Work Phone: [facility] 03-06-2025 10:47-0400 Body mass index (BMI) [Ratio] 23.95 kg/m2 El Nupur DO Work Phone: [facility] 03-06-2025 10:47-0400 Body weight 63.28 kg El Nupur DO Work Phone: [facility] 03-06-2025 10:47-0400 Diastolic blood pressure 76 mm[Hg] El Nupur DO Work Phone: [facility] 03-06-2025 10:47-0400 Systolic blood pressure 102 mm[Hg] El Nupur DO Work Phone: [facility] 02-20-2025 10:58-0400 Body mass index (BMI) [Ratio] 23.34 kg/m2 Nhung LAUREANO Work Phone: [facility] 02-20-2025 10:58-0400 Body weight 61.69 kg Nhung LAUREANO Work Phone: [facility] 02-20-2025 10:58-0400 Diastolic blood pressure 68 mm[Hg] Nhung LAUREANO Work Phone: [facility] 02-20-2025 10:58-0400 Systolic blood pressure 100 mm[Hg] Nhung LAUREANO Work Phone: [facility] 01-23-2025 10:47-0500 Body mass index (BMI) [Ratio] 22.66 kg/m2 El Nupur DO Work Phone: [facility] 01-23-2025 10:47-0500 Body weight 59.88 kg El Nupur DO Work Phone: [facility] 01-23-2025 10:47-0500 Diastolic blood pressure 68 mm[Hg] El Nupur DO Work Phone: [facility] 01-23-2025 10:47-0500 Systolic blood pressure 120 mm[Hg] El Nupur DO Work Phone: [facility] 12-30-2024 14:44-0500 Body mass index (BMI) [Ratio] 21.63 kg/m2 El Nupur DO Work Phone: [facility] 12-30-2024 14:44-0500 Body weight 57.15 kg El Nupur DO Work Phone: [facility] 12-30-2024 14:44-0500 Diastolic blood pressure 66 mm[Hg] El Nupur DO Work Phone: [facility] 12-30-2024 14:44-0500 Systolic blood pressure 100 mm[Hg] El Nupur DO Work Phone: [facility] 10-25-2024 11:17-0500 Body mass index (BMI) [Ratio] 20.08 kg/m2 [facility] Nurse [facility] 10-25-2024 11:17-0500 Body weight 53.07 kg [facility] Nurse [facility] 10-25-2024 11:17-0500 Diastolic blood pressure 68 mm[Hg] [facility] Nurse [facility] 10-25-2024 11:17-0500 Systolic blood pressure 102 mm[Hg] [facility] Nurse [facility] 07-23-2024 09:34-0400 Body mass index (BMI) [Ratio] 20.08 kg/m2 El Nupur DO Work Phone: [facility] 07-23-2024 09:34-0400 Body weight 53.07 kg El Nupur DO Work Phone: [facility] 07-23-2024 09:34-0400 Diastolic blood pressure 68 mm[Hg] El Nupur DO Work Phone: [facility] 07-23-2024 09:34-0400 Systolic blood pressure 104 mm[Hg] El Nupur DO Work Phone: [facility] 04-18-2024 14:41-0400 Body height 162.56 cm UNDERCUTTERBetzy Almendarez Work Phone: [facility] 04-18-2024 14:41-0400 Body mass index (BMI) [Ratio] 20.8 kg/m2 UNDERCUTTERBetzy Almendarez Work Phone: [facility] 04-18-2024 14:41-0400 Body temperature 98.8 [degF] UNDERCUTTERBetzy Almendarez Work Phone: [facility] 04-18-2024 14:41-0400 Body weight 54.99 kg UNDERCUTTERBetzy Almendarez Work Phone: [facility] 04-18-2024 14:41-0400 Heart rate 67 /min UNDERCUTTERBetzy Almendarez Work Phone: [facility] 04-18-2024 14:41-0400 Respiratory rate 18 /min UNDERCUTTERBetzy lAmendarez Work Phone: [facility] 04-18-2024 14:41-0400 SaO2% (BldA) [Mass fraction] 98 % UNDERCUTTERBetzy Almendarez Work Phone: [facility] 01-11-2023 17:10-0500 Body height 163.83 cm Lynette Flores Other [employer] Other 01-11-2023 17:10-0500 Body mass index (BMI) [Ratio] 19.94 kg/m2 Lynette Flores Other [employer] Other 01-11-2023 17:10-0500 Body temperature 98.2 [degF] Lynette Flores Other [employer] Other 01-11-2023 17:10-0500 Body weight 53.52 kg Lynette Flores Other [employer] Other 01-11-2023 17:10-0500 Respiratory rate 18 /min Lynette Flores Other [employer] Other 01-11-2023 17:10-0500 SaO2% (BldA) [Mass fraction] 99 % Lynette Flores Other [employer] Other 12-13-2022 16:30-0500 Body height 162.56 cm Lanny Nieves Other [employer] Other 12-13-2022 16:30-0500 Body mass index (BMI) [Ratio] 20.25 kg/m2 Lanny Neives Other [employer] Other 12-13-2022 16:30-0500 Body temperature 97.2 [degF] Lanny Nieves Other [employer] Other 12-13-2022 16:30-0500 Body weight 53.52 kg Lanny Nieves Other [employer] Other 12-13-2022 16:30-0500 Respiratory rate 18 /min Lanny Nieves Other [employer] Other 12-13-2022 16:30-0500 SaO2% (BldA) [Mass fraction] 99 % Lanny Nieves Other [employer] Other 07-04-2022 17:25-0400 Body height 163.83 cm Lynette Batseault Other [employer] Other 07-04-2022 17:25-0400 Body mass index (BMI) [Ratio] 19.77 kg/m2 Lynette Batesault Other [employer] Other 07-04-2022 17:25-0400 Body temperature 97.8 [degF] Lynette Batesault Other [employer] Other 07-04-2022 17:25-0400 Body weight 53.07 kg Lynette Conrado Other [employer] Other 07-04-2022 17:25-0400 Diastolic blood pressure 65 mm[Hg] Lynette Batesault Other [employer] Other 07-04-2022 17:25-0400 Respiratory rate 18 /min Lynette Batesault Other [employer] Other 07-04-2022 17:25-0400 SaO2% (BldA) [Mass fraction] 100 % Lynette Batesault Other [employer] Other 07-04-2022 17:25-0400 Systolic blood pressure 110 mm[Hg] Lynette Conrado Other [employer] Other 03-16-2022 14:01-0400 Blood Pressure Location Iker OLIVAS [facility] 03-16-2022 14:01-0400 Body temperature 97.7 [degF] Iker WNEK [facility] 03-16-2022 14:01-0400 Diastolic blood pressure 68 mm[Hg] Iker WNEK [facility] 03-16-2022 14:01-0400 Heart rate 76 /min Iker WNEK [facility] 03-16-2022 14:01-0400 Respiratory rate 18 /min Iker WNEK [facility] 03-16-2022 14:01-0400 SaO2% (BldA) [Mass fraction] 98 % Iker WNEK [facility] 03-16-2022 14:01-0400 Systolic blood pressure 120 mm[Hg] Iker WNEK [facility] 03-02-2022 14:34-0400 Blood Pressure Location Iker WNEK [facility] 03-02-2022 14:34-0400 Body temperature 98.24 [degF] Iker WNEK [facility] 03-02-2022 14:34-0400 Diastolic blood pressure 60 mm[Hg] Iker WNEK [facility] 03-02-2022 14:34-0400 Heart rate 76 /min Iker OLIVAS [facility] 03-02-2022 14:34-0400 Respiratory rate 18 /min Iker OLIVAS [facility] 03-02-2022 14:34-0400 SaO2% (BldA) [Mass fraction] 98 % Iker OLIVAS [facility] 03-02-2022 14:34-0400 Systolic blood pressure 118 mm[Hg] Iker OLIVAS [facility] 02-25-2022 10:15-0400 Body height 163.83 cm Maddie Dickson Other [employer] Other 02-25-2022 10:15-0400 Body mass index (BMI) [Ratio] 19.26 kg/m2 Maddie Dickson Other [employer] Other 02-25-2022 10:15-0400 Body temperature 97.1 [degF] Maddie Dickson Other [employer] Other 02-25-2022 10:15-0400 Body weight 51.71 kg Maddie Dickson Other [employer] Other 02-25-2022 10:15-0400 SaO2% (BldA) [Mass fraction] 99 % Maddie Dickson Other [employer] Other 02-22-2022 13:23-0400 Blood Pressure Location Marli Chet [facility] 02-22-2022 13:23-0400 Body temperature 97.34 [degF] Marli Chet [facility] 02-22-2022 13:23-0400 Diastolic blood pressure 70 mm[Hg] Marli [place] [facility] 02-22-2022 13:23-0400 Heart rate 80 /min Marli [place] [facility] 02-22-2022 13:23-0400 Respiratory rate 16 /min Marliannia Rosenberg [facility] 02-22-2022 13:23-0400 SaO2% (BldA) [Mass fraction] 98 % Marli Chet [facility] 02-22-2022 13:23-0400 Systolic blood pressure 118 mm[Hg] Marli Chet [facility] 01-10-2022 11:30-0500 Body height 162.56 cm Lynette Flores Other [employer] Other 01-10-2022 11:30-0500 Body mass index (BMI) [Ratio] 21.45 kg/m2 Lynette Flores Other [employer] Other 01-10-2022 11:30-0500 Body temperature 96.9 [degF] Lynette Flores Other [employer] Other 01-10-2022 11:30-0500 Body weight 56.7 kg Lynette Flores Other [employer] Other 01-10-2022 11:30-0500 Diastolic blood pressure 69 mm[Hg] Lynette Flores Other [employer] Other 01-10-2022 11:30-0500 Respiratory rate 18 /min Lynette Flores Other [facility] Other 01-10-2022 11:30-0500 SaO2% (BldA) [Mass fraction] 99 % Lynette Flores Other [facility] Other 01-10-2022 11:30-0500 Systolic blood pressure 121 mm[Hg] Lynette Flores Other [facility] Other 11-03-2021 17:45-0500 Body height 162.56 cm Maddie Rosasmond Other [employer] Other 11-03-2021 17:45-0500 Body mass index (BMI) [Ratio] 21.8 kg/m2 Maddie Yessi Other [facility] Other 11-03-2021 17:45-0500 Body temperature 97.8 [degF] Maddie Yessi Other [facility] Other 11-03-2021 17:45-0500 Body weight 57.61 kg Maddie Yessi Other [employer] Other 11-03-2021 17:45-0500 Respiratory rate 18 /min Maddie Yessi Other [employer] Other 11-03-2021 17:45-0500 SaO2% (BldA) [Mass fraction] 99 % Maddie Dickson Other [employer] Other Encounters Encounter Date Encounter Type Care Provider Facility Start: 04-08-2025 End: 04-08-2025 Bamboo flowsheet Nhung LAUREANO Work Phone: [facility] Start: 04-08-2025 End: 04-08-2025 Bamboo flowsheet Nhung LAUREANO Work Phone: [facility] Start: 04-08-2025 End: 04-08-2025 flow sheet Nhung LAUREANO Work Phone: [facility] Comment on above: Third trimester preg lucy; 34 weeks gestation of Start: 04-03-[address] [facility] Start: 03-27-2025 End: 03-27-2025 ambulatory [facility] Start: 03-26-2025 End: 03-26-2025 Telephone encounter Melina Head RN [facility] Start: 03-25-2025 End: 03-25-2025 Chart abstracting Bakari Howell MD Work Phone: [facility] Start: 03-25-2025 End: 03-25-2025 Clinisync Result Encounter El Boudreauxo DO Work Phone: [facility] Unsolicited Start: 03-25-2025 End: 03-25-2025 Clinisync Result Encounter El Boudreauxo DO Work Phone: [facility] Unsolicited Start: 03-24-2025 End: 03-24-2025 Orders Only Estrellita Weinberg RN [facility] Comment on above: SGA (small for gesta tional age) (Primary Dx) Start: 03-20-2025 End: 03-20-2025 Bamboo flowsheet El Nupur DO Work Phone: [facility] Start: 03-20-2025 End: 03-20-2025 Bamboo flowsheet El Nupur DO Work Phone: [facility] Start: 03-20-2025 End: 03-20-2025 ambulatory EL NUPUR Not Available Start: 03-20-2025 End: 03-20-2025 flow sheet El Nupur DO Work Phone: [facility] Comment on above: Third trimester preg lucy; 32 weeks gestation of Start: 03-20-2025 End: 03-20-2025 ambulatory EL NUPUR Not Available Start: 03-06-2025 End: 03-06-2025 flow sheet El Nupur DO Work Phone: [facility] Comment on above: Third trimester preg lucy; 30 weeks gestation of ; Vaginal discharge Start: 03-06-2025 End: 03-06-2025 ambulatory EL NUPUR Not Available Start: 02-20-2025 End: 02-20-2025 Bamboo flowsheet Nhung LAUREANO Work Phone: [facility] Start: 02-20-2025 End: 02-20-2025 Bamboo flowsheet Nhung LAUREANO Work Phone: [facility] Start: 02-20-2025 End: 02-20-2025 ambulatory NHUNG YBARRA Not Available Start: 02-20-2025 End: 02-20-2025 flow sheet Nhung LAUREANO Work Phone: [facility] Comment on above: Third trimester preg lucy; 28 weeks gestation of ; Screen for STD (sexually transmitted disease); Encounter for follow-up ultrasound of anatomy Start: 02-13-2025 End: 02-13-2025 Clinisync Result Encounter El Nupur DO Work Phone: [facility] Unsolicited Start: 02-13-2025 End: 02-13-2025 Clinisync Result Encounter El Nupur DO Work Phone: [facility] Unsolicited Start: 01-30-2025 End: 01-30-2025 Clinisync Result Encounter El Nupur DO Work Phone: [facility] Unsolicited Start: 01-30-2025 End: 01-30-2025 Clinisync Result Encounter El Nupur DO Work Phone: [facility] Unsolicited Start: 01-23-2025 End: 01-23-2025 Bamboo flowsheet El Nupur DO Work Phone: [facility] Start: 01-23-2025 End: 01-23-2025 Bamboo flowsheet El Nupur DO Work Phone: [facility] Start: 01-23-2025 End: 01-23-2025 ambulatory EL NUPUR Not Available Start: 01-23-2025 End: 01-23-2025 flow sheet El Nupur DO Work Phone: [facility] Comment on above: 24 weeks gestation o f ; Third trimester ; Diabetes mellitus screening Start: 01-16-2025 End: 01-16-2025 Clinisync Result Encounter El Nupur DO Work Phone: [facility] Unsolicited Start: 01-16-2025 End: 01-16-2025 Clinisync Result Encounter El Nupur DO Work Phone: [facility] Unsolicited Start: 12-30-2024 End: 12-30-2024 ambulatory EL NUPUR Not Available Start: 12-30-2024 End: 12-30-2024 flow sheet El Nupur DO Work Phone: [facility] Comment on above: Third trimester preg lucy; 20 weeks gestation of ; Near syncope; UTI symptoms; Lightheadedness; Other headache syndrome Start: 12-30-2024 End: 01-01-2025 External Result Encounter El Nupur DO Work Phone: [facility] Unsolicited Start: 12-30-2024 End: 01-01-2025 External Result Encounter El Nupur DO Work Phone: [facility] Unsolicited Start: 12-30-2024 End: 12-30-2024 ambulatory EL NUPUR Not Available Start: 11-26-2024 End: 11-26-2024 Bamboo flowsheet El Nupur DO Work Phone: [facility] Start: 11-26-2024 End: 11-26-2024 Bamboo flowsheet El Nupur DO Work Phone: [facility] Start: 11-26-2024 End: 11-26-2024 ambulatory EL NUPUR Not Available Start: 11-26-2024 End: 11-26-2024 flow sheet El Nupur DO Work Phone: [facility] Comment on above: 15 weeks gestation o f ; Screening, , for anatomic survey Start: 10-28-2024 End: 10-28-2024 Clinisync Result Encounter El Nupur DO Work Phone: [facility] Unsolicited Start: 10-28-2024 End: 10-28-2024 Clinisync Result Encounter El Nupur DO Work Phone: [facility] Unsolicited Start: 10-25-2024 End: 10-25-2024 ambulatory [facility] Nupur Nurse [facility] Start: 09-14-2024 End: 09-14-2024 Clinisync Result Encounter El Nupur DO Work Phone: [facility] Unsolicited Start: 09-14-2024 End: 09-14-2024 Clinisync Result Encounter El Nupur DO Work Phone: [facility] Unsolicited Start: 09-12-2024 End: 09-12-2024 Clinisync Result Encounter El Nupur DO Work Phone: [facility] Unsolicited Start: 09-12-2024 End: 09-12-2024 Clinisync Result Encounter El Nupur DO Work Phone: [facility] Unsolicited Start: 07-25-2024 End: 07-25-2024 Clinisync Result Encounter El Nupur DO Work Phone: [facility] Unsolicited Start: 07-25-2024 End: 07-25-2024 Clinisync Result Encounter El Nupur DO Work Phone: [facility]solic[facility] Start: 07-23-2024 End: 07-23-2024 Bamboo flowsheet El Nupur DO Work Phone: [facility] Start: 07-23-2024 End: 07-23-2024 Bamboo flowsheet El Nupur DO Work Phone: [facility] Start: 07-23-2024 End: 07-23-2024 ambulatory EL NUPUR Not Available Start: 07-23-2024 End: 07-23-2024 Office outpatient visit 15 minutes El Nupur DO Work Phone: [facility] Comment on above: Encounter for infert ility; PCOS (polycystic ovarian syndrome) Start: 04-18-2024 End: 04-18-2024 ambulatory Isabella Almendarez [facility] Work Phone: Start: 04-18-2024 End: 04-18-2024 Departed Referred TRINITY Almendarez Work Phone: [facility] Work Phone: Start: 04-18-2024 End: 04-18-2024 Patient encounter procedure TRINITY Almendarez Work Phone: [facility] Work Phone: Start: 12-29-2023 ambulatory Facility:Daxa Dillon Start: 01-11-2023 End: 01-11-2023 ambulatory Lynette Flores Other [facility] Other Start: 01-11-2023 Office outpatient vi sit 25 minutes Lynette Flores [facility] Start: 12-13-2022 End: 12-13-2022 ambulatory Lanny Nieves Other [facility] Other Start: 12-13-2022 Office outpatient vi sit 15 minutes Lanny Nieves [facility] Start: 11-25-2022 End: 11-25-[address] NONE LISTED REQUEST Facility: Start: 11-03-2022 End: 11-03-[address] NONE LISTED REQUEST Facility: Start: 09-06-2022 End: 09-06-[address] GREG BO . Facility: Start: 08-18-2022 End: 08-18-2022 ambulatory MD Iker Olivas Work Phone: [facility] Work Phone: Start: 08-18-2022 End: 08-18-2022 Departed Referred MD Iker Olivas Work Phone: [facility] Start: 08-16-2022 End: 08-17-[address] DOCTOR BERRY Facility: Start: 07-04-2022 End: 07-04-2022 ambulatory Lynette Flores Other [facility] Other Start: 07-04-2022 Office outpatient vi sit 15 minutes Lynette Flores [facility] Start: 05-05-2022 End: 05-05-2022 ambulatory IKER OLIVAS [facility] Start: 03-16-2022 End: 03-16-2022 Patient encounter procedure Iker OLIVAS [facility] Start: 03-02-2022 End: 03-02-2022 Patient encounter procedure Iker OLIVAS [facility] Start: 02-25-2022 End: 02-25-2022 ambulatory Maddie Yessi Other [facility] Other Start: 02-25-2022 Office outpatient vi sit 25 minutes Maddie Yessi [facility] Start: 02-22-2022 End: 02-22-2022 Patient encounter procedure Marli Rosenberg [facility] Start: 01-10-2022 End: 01-10-2022 ambulatory Lynette Flores Other [facility] Other Start: 01-10-2022 Office outpatient vi sit 15 minutes Lynette Conrado [facility] Start: 11-03-2021 End: 11-03-2021 ambulatory Maddie Yessi Other [facility] Other Start: 11-03-2021 Office outpatient vi sit 15 minutes Maddie Yessi [facility] Procedures Date Procedure Procedure Detail Performing Clinician Start: 04-08-2025 Urnls dip stick/tabl et rgnt non-auto w/o micrscp Nhung LAUREANO Work Phone: Start: 03-25-2025 US OB BPP W NON-STRESS El Nupur DO Work Phone: Start: 03-06-2025 Urnls dip stick/tabl et rgnt non-auto w/o micrscp El Nupur DO Work Phone: Start: 02-20-2025 Urnls dip stick/tabl et rgnt non-auto w/o micrscp Nhung LAUREANO Work Phone: Start: 02-13-2025 [facility] UA (CLEAN/CATCH) CLINICAL SYSTEMS EDUCATOR/MICRO IF IND. El Nupur DO Work Phone: Start: 01-30-2025 CA ECHO DOPPLER COMPLETE El Nupur DO Work Phone: Start: 01-30-2025 ALL CBC WITH AUTO DIFF El Nupur DO Work Phone: Start: 01-23-2025 Urnls dip stick/tabl et rgnt non-auto w/o micrscp El Nupur DO Work Phone: Start: 01-16-2025 ALL CBC WITH AUTO DIFF El Nupur DO Work Phone: Start: 12-30-2024 URINARY TRACT INFECT ION (HTRX) El Nupur DO Work Phone: Start: 11-26-2024 Urnls dip stick/tabl et rgnt non-auto w/o micrscp El Nupur DO Work Phone: Start: 10-28-2024 ALL CBC WITH AUTO DIFF El Nupur DO Work Phone: Start: 10-25-2024 Urnls dip stick/tabl et rgnt non-auto w/o micrscp El Nupur DO Work Phone: Start: 09-14-2024 [facility] PREG QUANT HCG Core y Nupur DO Work Phone: Start: 09-12-2024 [facility] PREG QUANT HCG Core y Nupur DO Work Phone: Start: 07-25-2024 ALL CBC WITH AUTO DIFF El Nupur DO Work Phone: Start: 11-20-2007 Dentition (body structure) Marli Chet Comment on above: multiple surgeries w agatha little per Shilpi. Plan of Treatment Date Care Activity Detail Author Start: 07-21-2025 Influenza vaccination N [facility] Start: 04-24-2025 End: 03-24-2026 US MFM with or without consult US MFM with or without consult Imaging Routine SGA (small for gestational age) Expected: 04/24/2025 (Approximate), Expires: 03/24/2026 [facility] Work Phone: Comment on above: Expected: 04/24/2025 (Approximate), Expires: 03/24/2026 Start: 04-15-2025 End: 04-15-2025 Patient encounter procedure 04/15/2025 1:10 PM EDT Routine [facility] [address] [place] [address] El Espitia, DO [address] [place], [place] [id number] [facility] Start: 04-08-2025 End: 04-08-2025 Patient encounter procedure [facility] Comment on above: Arrived Start: 03-27-2025 End: 03-27-2025 Telemedicine consultation with patient 03/27/2025 2:00 PM EDT Telemedicine Maternal- Medicine at [facility] [address] [place] [id number] Bakari Howell MD [address], [address] [place] [address] Maternal- Medicine at [facility] Start: 03-27-2025 End: 03-27-2025 Patient encounter procedure 03/27/2025 1:00 PM EDT Appointment [facility] [place] [address] [facility] [address] [place] [id number] [facility] [place] Start: 03-20-2025 End: 03-20-2025 Patient encounter procedure [facility] Comment on above: Arrived Start: 03-20-2025 End: 03-20-2025 Professional / ancillary services management 03/20/2025 9:30 AM EDT Ancillary Procedure [facility] [address] [place] [address] [facility] Start: 2025 Screening for malign ant neoplasm of cervix Pap Smear [facility] Start: 03-06-2025 End: 03-06-2025 Patient encounter procedure 03/06/2025 10:40 AM EDT Routine [facility] [address] [facility] [place] [phone] El Espitia DO [address] [place] [place] [address] [facility] Start: 03-06-2025 End: 03-06-2025 Professional / ancillary services management 03/06/2025 10:00 AM EDT Ancillary Procedure [facility] [address] [facility] [place] [address] [facility] Start: 02-20-2025 End: 02-20-2026 US for US OB limited 1+ fetuses Imaging Routine Encounter for follow-up ultrasound of anatomy Expected: 02/20/2025 (Approximate), Expires: 02/20/2026 [facility] Comment on above: Expected: 02/20/2025 (Approximate), Expires: 02/20/2026 Start: 02-20-2025 End: 02-20-2025 Patient encounter procedure 02/20/2025 10:20 AM EDT Routine [facility] [address] [facility] [place] [id number] Nhung Ybarra PA [address] [facility] [place] [address] [facility] Start: 01-23-2025 End: 01-23-2026 CBC panel - Blood by Automated count CBC Lab Routine Diabetes mellitus screening Expected: 01/23/2025 (Approximate), Expires: 01/23/2026 [facility] Work Phone: Comment on above: Expected: 01/23/2025 (Approximate), Expires: 01/23/2026 Start: 01-23-2025 End: 01-23-2026 Measurement of glucose 1 hour after glucose challenge for glucose tolerance test Glucose tolerance, 1 hour Lab Routine Diabetes mellitus screening Expected: 01/23/2025 (Approximate), Expires: 01/23/2026 [facility] Comment on above: Expected: 01/23/2025 (Approximate), Expires: 01/23/2026 Start: 01-23-2025 End: 01-23-2025 Patient encounter procedure 01/23/2025 10:20 AM EST Routine [facility] [address] [facility] [place] [address] El Espitia, DO [address] [place], [place] [address]Jos[place] [address] [facility] Start: 12-30-2024 End: 12-30-2025 12 lead ECG ECG 12 lead unit performed ECG Routine Near syncope Lightheadedness Expected: 12/30/2024 (Approximate), Expires: 12/30/2025 [facility] Comment on above: Expected: 12/30/2024 (Approximate), Expires: 12/30/2025 Start: 12-30-2024 End: 12-30-2026 Echocardiogram 2D complete Echocardiogram 2D complete Echocardiography Routine Near syncope Lightheadedness Expected: 12/30/2024 (Approximate), Expires: 12/30/2026 [facility] Comment on above: Expected: 12/30/2024 (Approximate), Expires: 12/30/2026 Start: 12-30-2024 End: 12-30-2024 Patient encounter procedure 12/30/2024 11:30 AM EST Routine [facility] [address] [place] [address] El Espitia, DO [address] [place] [address] [facility] Start: 12-30-2024 End: 12-30-2024 Professional / ancillary services management 12/30/2024 10:30 AM EST Ancillary Procedure [facility] [address] [place] [address] [facility] Start: 11-26-2024 End: 01-24-2025 Alpha fetoprotein, maternal Alpha fetoprotein, maternal Lab Routine 15 weeks gestation of Expected: 11/26/2024 (Approximate), Expires: 01/24/2025 [facility] Comment on above: Expected: 11/26/2024 (Approximate), Expires: 01/24/2025 Start: 11-26-2024 End: 11-26-2025 US for US OB 14+ weeks anatomy scan Imaging Routine 15 weeks gestation of Screening, , for anatomic survey Expected: 11/26/2024, Expires: 11/26/2025 [facility] Work Phone: Comment on above: Expected: 11/26/2024 , Expires: 11/26/2025 Start: 11-26-2024 End: 11-26-2024 Patient encounter procedure 11/26/2024 11:30 AM EST Routine [facility] [address] [address] El Espitia DO [address] [facility] [place] [address] [facility] Start: 10-25-2024 End: 10-25-2025 ABO/Rh ABO/Rh Lab Routine Missed menses , unspecified gestational age Expected: 10/25/2024 (Approximate), Expires: 10/25/2025 [facility] Comment on above: Expected: 10/25/2024 (Approximate), Expires: 10/25/2025 Start: 10-25-2024 End: 10-25-2025 Blood type and Indirect antibody screen panel - Blood Type and screen Lab Routine Missed menses , unspecified gestational age Expected: 10/25/2024 (Approximate), Expires: 10/25/2025 [facility] Work Phone: Comment on above: Expected: 10/25/2024 (Approximate), Expires: 10/25/2025 Start: 10-25-2024 End: 10-25-2025 Drugs of abuse panel - Urine by Screen method Rapid drug screen, urine Lab Routine , unspecified gestational age Encounter for supervision of normal first in first trimester Expected: 10/25/2024 (Approximate), Expires: 10/25/2025 [facility] Comment on above: Expected: 10/25/2024 (Approximate), Expires: 10/25/2025 Start: 10-25-2024 End: 10-25-2025 US Pelvis transvaginal US OB transvaginal Imaging Routine Missed menses Expected: 10/25/2024 (Approximate), Expires: 10/25/2025 [facility] Comment on above: Expected: 10/25/2024 (Approximate), Expires: 10/25/2025 Start: 07-23-2024 End: 07-23-2025 Antimullerian hormone (AMH) Antimullerian hormone (AMH) Lab Routine Encounter for infertility PCOS (polycystic ovarian syndrome) Expected: 07/23/2024 (Approximate), Expires: 07/23/2025 [facility] Comment on above: Expected: 07/23/2024 (Approximate), Expires: 07/23/2025 Start: 07-23-2024 End: 07-23-2025 DHEA DHEA Lab Routine PCOS (polycystic ovarian syndrome) Expected: 07/23/2024 (Approximate), Expires: 07/23/2025 [facility] Comment on above: Expected: 07/23/2024 (Approximate), Expires: 07/23/2025 Start: 07-23-2024 End: 07-23-2025 US for US PELVIS-TRANSVAG IF INDICATED Imaging Routine PCOS (polycystic ovarian syndrome) Expected: 07/23/2024 (Approximate), Expires: 07/23/2025 [facility] Comment on above: Expected: 07/23/2024 (Approximate), Expires: 07/23/2025 Start: 07-21-2024 Influenza vaccination Influenza Vacc ine (#1) [facility] Start: 04-19-2024 Bacteria identified in Urine by Culture [facility] Start: 04-18-2024 Bacteria identified in Urine by Culture [facility] Start: 2023 DTaP,Tdap and Td Vaccines (1 - Tdap) DTaP,Tdap and Td Vaccines (1 - Tdap) [facility] Start: 2022 Adult BMI Screening Adult BMI Screen ing [facility] Start: 2016 Depression Screening Depression Scre ening [facility] Start: 2016 Tobacco Screening Tobacco Screening [facility] Start: 2004 Screening for Chlamy kiera trachomatis Chlamydia Screening [facility] Bacteria identified in Urine by Culture Urine culture Microbiology Routine Missed menses Ordered: 10/25/2024 [facility] Comment on above: Ordered: 10/25/2024 Bacteria identified in Urine by Culture Urine culture Microbiology Routine UTI symptoms Ordered: 12/30/2024 [facility] Work Phone: Comment on above: Ordered: 12/30/2024 CBC W Auto Different ial panel - Blood CBC and differential Lab Routine PCOS (polycystic ovarian syndrome) Ordered: 07/23/2024 [facility] Comment on above: Ordered: 07/23/2024 CBC W Auto Different ial panel - Blood CBC and differential Lab Routine Missed menses , unspecified gestational age Ordered: 10/25/2024 [facility] Comment on above: Ordered: 10/25/2024 CBC W Auto Different ial panel - Blood CBC and differential Lab Routine Near syncope Lightheadedness Ordered: 12/30/2024 [facility] Comment on above: Ordered: 12/30/2024 CHLAMYDIA TRACHOMATI S (GENITO/STI) CHLAMYDIA TRACHOMATIS (GENITO/STI) Lab Routine Screen for STD (sexually transmitted disease) Ordered: 02/20/2025 [facility] Comment on above: Ordered: 02/20/2025 CHLAMYDIA TRACHOMATI S (GENITO/STI) CHLAMYDIA TRACHOMATIS (GENITO/STI) Lab Routine Vaginal discharge Ordered: 03/06/2025 [facility] Comment on above: Ordered: 03/06/2025 DHEA-sulfate DHEA-sulfate Lab Routine PCOS (polycystic ovarian syndrome) Ordered: 07/23/2024 [facility] Comment on above: Ordered: 07/23/2024 Estradiol Estradiol Lab Ro utine Encounter for infertility PCOS (polycystic ovarian syndrome) Ordered: 07/23/2024 [facility] Comment on above: Ordered: 07/23/2024 Follicle stimulating hormone Follicle stimulating hormone Lab Routine PCOS (polycystic ovarian syndrome) Ordered: 07/23/2024 [facility] Comment on above: Ordered: 07/23/2024 hCG, quantitative, hCG, quantitative, Lab Routine PCOS (polycystic ovarian syndrome) Ordered: 07/23/2024 [facility] Work Phone: Comment on above: Ordered: 07/23/2024 Hemoglobin A1c/Hemoglobin.total in Blood Hemoglobin A1c Lab Routine Encounter for infertility PCOS (polycystic ovarian syndrome) Ordered: 07/23/2024 [facility] Comment on above: Ordered: 07/23/2024 Hemoglobin A1c/Hemoglobin.total in Blood Hemoglobin A1c Lab Routine Missed menses , unspecified gestational age Ordered: 10/25/2024 [facility] Comment on above: Ordered: 10/25/2024 Hepatitis B virus surface Ag [Presence] in Serum or Plasma by Immunoassay Hepatitis B surface antigen Lab Routine Missed menses , unspecified gestational age Ordered: 10/25/2024 [facility] Comment on above: Ordered: 10/25/2024 Hepatitis C virus Ab [Presence] in Serum or Plasma by Immunoassay Hepatitis C antibody Lab Routine Missed menses , unspecified gestational age Ordered: 10/25/2024 [facility] Comment on above: Ordered: 10/25/2024 HIV-1/HIV-2 antigen/antibody combination immunoassay HIV-1 and HIV-2 antibodies Lab Routine Missed menses , unspecified gestational age Ordered: 10/25/2024 [facility] Comment on above: Ordered: 10/25/2024 Luteinizing hormone Luteinizing hormone Lab Routine PCOS (polycystic ovarian syndrome) Ordered: 07/23/2024 [facility] Comment on above: Ordered: 07/23/2024 Neisseria gonorrhoea e DNA [Presence] in Unspecified specimen by YUNG with probe detection Neisseria gonorrhea DNA probe, direct Lab Routine Screen for STD (sexually transmitted disease) Ordered: 02/20/2025 [facility] Comment on above: Ordered: 02/20/2025 Neisseria gonorrhoea e DNA [Presence] in Unspecified specimen by YUNG with probe detection Neisseria gonorrhea DNA probe, direct Lab Routine Vaginal discharge Ordered: 03/06/2025 [facility] Comment on above: Ordered: 03/06/2025 Progesterone Progesterone Lab Routine Encounter for infertility PCOS (polycystic ovarian syndrome) Ordered: 07/23/2024 [facility] Comment on above: Ordered: 07/23/2024 Reagin Ab [Presence] in Serum by RPR RPR Lab Routine Missed menses , unspecified gestational age Ordered: 10/25/2024 [facility] Comment on above: Ordered: 10/25/2024 Rubella antibody, IgG Rubella an tibody, IgG Lab Routine Missed menses , unspecified gestational age Ordered: 10/25/2024 [facility] Comment on above: Ordered: 10/25/2024 SURESWAB(R) ADVANCED VAGINITIS PLUS, TMA SURESWAB(R) ADVANCED VAGINITIS PLUS, TMA Pathology and Cytology Routine Screen for STD (sexually transmitted disease) Ordered: 02/20/2025 [facility] [employer] Work Phone: Comment on above: Ordered: 02/20/2025 SURESWAB(R) ADVANCED VAGINITIS PLUS, TMA SURESWAB(R) ADVANCED VAGINITIS PLUS, TMA Pathology and Cytology Routine Vaginal discharge Ordered: 03/06/2025 [facility] [employer] Work Phone: Comment on above: Ordered: 03/06/2025 Thyrotropin [Units/volume] in Serum or Plasma TSH Lab Routine PCOS (polycystic ovarian syndrome) Ordered: 07/23/2024 [facility] Comment on above: Ordered: 07/23/2024 Thyrotropin [Units/volume] in Serum or Plasma TSH Lab Routine Near syncope Lightheadedness Ordered: 12/30/2024 [facility] Comment on above: Ordered: 12/30/2024 Thyroxine (T4) free [Mass/volume] in Serum or Plasma T4, free Lab Routine PCOS (polycystic ovarian syndrome) Ordered: 07/23/2024 [facility] Comment on above: Ordered: 07/23/2024 Immunizations Immunization Date Immunization Notes Care Provider Gulshan nunes 12-10-2020 hepatitis A vaccine, pediatric/adolescent dosage, 2 dose schedule Marli Rosenberg [facility] 12-10-2020 meningococcal polysaccharide (groups A, C, Y and W-135) diphtheria toxoid conjugate vaccine (MCV4P) Marli Rosenberg [facility] 09-01-2016 meningococcal ACWY vaccine, unspecified formulation Marli Rosenberg [facility] 09-01-2016 tetanus toxoid, redu matthieu diphtheria toxoid, and acellular pertussis vaccine, adsorbed Marliannia Rosenberg [facility] 12-10-2013 influenza virus vacc ine, unspecified formulation Marli Rosenberg [facility] 12-11-2008 influenza virus vacc ine, unspecified formulation Marli Rosenberg [facility] 05-01-2008 diphtheria, tetanus toxoids and acellular pertussis vaccine Marli Rosenberg [facility] 05-01-2008 hepatitis B vaccine, adult dosage Marli Rosenberg [facility] 05-01-2008 measles, mumps and rubella virus vaccine Marli Rosenberg [facility] 05-01-2008 poliovirus vaccine, unspecified formulation Marli Rosenberg [facility] 05-01-2008 varicella virus vaccine Brittney Rosenberg [facility] 03-16-2005 diphtheria, tetanus toxoids and acellular pertussis vaccine Marli Rosenberg [facility] 03-16-2005 haemophilus influenz ae type b vaccine, HbOC conjugate Marli Rosenberg [facility] 03-16-2005 measles, mumps and rubella virus vaccine Marli Rosenberg [facility] 03-16-2005 pneumococcal conjuga te vaccine, 13 valent Marli Rosenberg [facility] 03-16-2005 varicella virus vaccine Brittney Rosenberg [facility] 2004 influenza virus vacc ine, unspecified formulation Marli Rosenberg [facility] 2004 diphtheria, tetanus toxoids and acellular pertussis vaccine Marli Rosenberg [facility] 2004 haemophilus influenz ae type b vaccine, HbOC conjugate Marli Rosenberg [facility] 2004 hepatitis B vaccine, adult dosage Marli Rosenberg [facility] 2004 pneumococcal conjuga te vaccine, 13 valent Marli Rosenberg [facility] 2004 poliovirus vaccine, unspecified formulation Marli Rosenberg [facility] 2004 diphtheria, tetanus toxoids and acellular pertussis vaccine Marli Rosenberg [facility] 2004 haemophilus influenz ae type b vaccine, HbOC conjugate Marli Olds [facility] 2004 hepatitis B vaccine, adult dosage Marli [place] [facility] 2004 pneumococcal conjuga te vaccine, 13 valent Marli [place] [facility] 2004 poliovirus vaccine, unspecified formulation Marli [place] [facility] 2004 diphtheria, tetanus toxoids and acellular pertussis vaccine Marli [place] [facility] 2004 haemophilus influenz ae type b vaccine, HbOC conjugate Marli Chet [facility] 2004 hepatitis B vaccine, adult dosage Marli [place] [facility] 2004 pneumococcal conjuga te vaccine, 13 valent Marli [place] [facility] 2004 poliovirus vaccine, unspecified formulation Marli [place] [facility] Payers Date Payer Category Payer Medicaid O [facility] [id number] 2024 Self-pay [id number] 2024 Medicaid [employer] [facility] A[facility] [employer] [place] [id number] 2024-Present [address] [place] [address] [id number] 2024 Medicaid [id number] 2013 Managed Care Other (unspecified) [facility] [id number] 2013 Private Health Insurance [id number]. [id number] 2004 Unknown [id number] 2.16.840.1.994301.3.579.2. 479 2004 Unknown [id number] 2.16.840.1.098455.3.579.2. 593 2004 Unknown [id number] 2.16.840.1.071300.3.579.2. 593 2004 Unknown [id number] 2.16.840.1.273502.3.579.2. 593 2004 Unknown [id number] 2.16.840.1.703691.3.579.2. 1259 2004 Unknown [id number] 2.16.840.1.802196.3.579.2. 1259 2004 Unknown [id number] 2.16.840.1.910748.3.579.2. 125 2004 Unknown [id number] 2.16.840.1.836487.3.579.2. 125 2004 Unknown [id number] 2.16.840.1.781057.3.579.2. 125 2004 Unknown [id number] 2.16840.1.921363.3.579.2. 1258 2004 Unknown [id number] 2.16840.1.422955.3.579.2. 125 2004 Unknown [id number] 2.16840.1.193985.3.579.2. 125 2004 Unknown [id number] 2.16840.1.328845.3.579.2. 125 2004 Unknown [id number] 2.16840.1.404539.3.579.2. 125 2004 Unknown [id number] 2.16840.1.742738.3.579.2. 125 2004 Unknown [id number] 2.16840.1.301710.3.579.2. 128 2004 Unknown [id number] 2.16.840.1.513168.3.579.2. 128 2004 Unknown [id number] 2.16.840.1.761748.3.579.2. 1286 1984 Unknown [id number] 2.16.840.1.019265.3.579.2. 593 1959 Unknown [id number] 2.16.840.1.998320.19 1959 Unknown [id number] 2.16.840.1.697967.19 1959 Unknown [id number] 2.16.840.1.495131.19 Unknown [employer] BC/BS [id number] Unknown [id number] 2.16.840.1.015299.19 Unknown [id number] 2.16.840.1.613098.3.579.2. 531 Social History Date Type Detail Facility Start: 01-07-2022 End: 11-01-2023 Tobacco smoking status Never smoked tobacco (finding) [facility] Other Tobacco smoking status Never [facility] Start: 07-23-2024 End: 03-25-2025 Sex Assigned At Female [facility] [employer] Other Start: 2004 Sex Assigned At Female [facility] Start: 11-01-2023 End: 03-25-2025 Tobacco use and exposure Smokeless tobacco non-user [facility] Start: 07-23-2024 End: 04-08-2025 Alcoholic beverage intake Lifetime non-drinker (finding) [facility] Start: 07-23-2024 End: 03-25-2025 History of Social function [facility] Start: 11-01-2023 Alcohol Comment caffeine: pop/ tea once or twice a week [facility] Start: 07-23-2024 Gender identity Identifies as female gender (finding) [facility] Start: 08-22-2024 [facility] Tobacco smoking status NHIS Tobacco smoking consumption unknown [facility] Start: 2004 Sex assigned at Not on file P [facility] Start: 03-24-2025 Sex Female (finding) [facility] Clinical Notes 08-21-2013 to 04-08-2025 GEORGI Presley - 04/08/2025 10:50 AM EDTTelephone Encounter - Melina Head RN - 03/26/2025 10:23 AM EDTTelephone Encounter - Melina Head RN - 03/26/2025 10:23 AM EDT Note Date & Type Note Facility 04-08-2025 History of Presen t illness Narrative Reason for Appointment: Patient ID: Shilpi Millard is a 20 y.o. female who presents [...] Vitals: Estimated body mass index is 26.02 kg/m as calculated from the following: Height [...] of: GEORGI Presley documented in this encounter [facility] 03-26-2025 Miscellaneous Notes Formattin g of this note might be different from the original. Called Dr. Espitia's office regarding any NIPTS/CS testing that was done. Left message on nurse line to fax results or call office. Nurse called back and advises that patient has not had any screenings completed documented in this encounter [facility] 03-26-2025 Telephone encount er Note Called Dr. Espitia's office regarding any NIPTS/CS testing that was done. Left message on nurse line to fax results or call office. Nurse called back and advises that patient has not had any screenings completed [facility] 03-20-2025 History of Presen t illness Narrative Reason for Appointment: Patient ID: Shilpi Millard is a 20 y.o. female who presents for Routine Visit Patient presents today for Return OB appointment. MEDICATIONS Current Outpatient Medications Medication Instructions terconazole (Terazol 7) 0.4 % vaginal cream 1 applicator, Vaginal, Nightly ALLERGIES Allergies Allergen Reactions Coconut (Cocos Nucifera) GI intolerance Iron Hives Other Unknown METAL Latex Rash, [...] nursing note reviewed. Exam conducted with a blocklayer present. Vitals: Estimated body mass index is 25.03 kg/m as calculated from the following: Height as of 11/27/23: 5' 4 . Weight as of this encounter: 145 lb 12.8 oz. BP: 104/74 Patient's last menstrual period was 07/15/2024 (approximate). ASSESSMENT & PLAN ICD-10-CM 1. Third trimester Z34.93 2. 32 weeks gestation of Z3A.32 Patient presents today for a routine obstetrics appointment. Patient is currently 32w0d with a Estimated Date of Delivery: 05/15/25. Patient to check and see if growth scan can be fit into schedule today. Patient to return to clinic in 2 weeks for routine OB exam. Documented by Reyna Leal LPN on behalf of: El Espitia DO documented in this encounter [facility] 03-06-2025 History of Presen t illness Narrative Reason for Appointment: Patient ID: Shilpi Millard is a 19 y.o. female who presents for Routine Visit Patient presents today for Return OB appointment. MEDICATIONS Current Outpatient Medications Medication Instructions metroNIDAZOLE (Metrogel) 0.75 % vaginal gel Vaginal, Daily ALLERGIES Allergies Allergen Reactions Coconut (Cocos Nucifera) GI intolerance Iron Hives Other Unknown METAL Latex Rash, [...] nursing note reviewed. Exam conducted with a blocklayer present. Vitals: Estimated body mass index is 23.95 kg/m as calculated from the following: Height as of 11/27/23: 5' 4 . Weight as of this encounter: 139 lb 8 oz. BP: 102/76 Patient's last menstrual period was 07/15/2024 (approximate). ASSESSMENT & PLAN ICD-10-CM 1. Third trimester Z34.93 2. 30 weeks gestation of Z3A.30 POCT urinalysis dipstick manually resulted 3. Vaginal discharge N89.8 SURESWAB(R) ADVANCED VAGINITIS PLUS, TMA CHLAMYDIA TRACHOMATIS (GENITO/STI) Neisseria gonorrhea DNA probe, direct metroNIDAZOLE (Metrogel) 0.75 % vaginal gel Patient presents today for a routine obstetrics appointment. Patient is currently 30w0d with a Estimated Date of Delivery: 05/15/25. Patient to return to clinic in 2 weeks for routine OB care. Documented by Reyna Leal LPN on behalf of: El Espitia DO documented in this encounter [facility] 02-20-2025 History of Presen t illness Narrative Reason for Appointment: Patient ID: Shilpi Millard is a 19 y.o. female who presents for Routine Visit Patient presents today for Return OB appointment. MEDICATIONS No current outpatient medications ALLERGIES Allergies Allergen Reactions Coconut (Cocos Nucifera) GI intolerance Iron Hives Other Unknown METAL Latex Rash, [...] Appearance: Normal appearance. She is normal weight. Genitourinary: Right Adnexa: not tender and no mass present. Left Adnexa: not tender and no mass present. No cervical discharge. Breasts: Breasts are soft. Right: Normal. Left: Normal. HENT: Head: Normocephalic. Nose: Nose normal. Mouth/Throat: Mouth: Mucous membranes are moist. Cardiovascular: Rate and Rhythm: Normal rate. Pulses: Normal pulses. Pulmonary: Effort: Pulmonary effort is normal. Breath sounds: Normal breath sounds. Abdominal: General: Bowel sounds are normal. Palpations: Abdomen is soft. Musculoskeletal: General: Normal range of motion. Cervical back: Normal range of motion. Neurological: General: No focal deficit present. Mental Status: She is alert and oriented to person, place, and time. Skin: General: Skin is warm and dry. Psychiatric: Mood and Affect: Mood normal. Behavior: Behavior normal. Thought Content: Thought content normal. Judgment: Judgment normal. Vitals and nursing note reviewed. Exam conducted with a blocklayer present. Vitals: Estimated body mass index is 23.34 kg/m as calculated from the following: Height as of 11/27/23: 5' 4 . Weight as of this encounter: 136 lb. BP: 100/68 Patient's last menstrual period was 07/15/2024 (approximate). ASSESSMENT & PLAN ICD-10-CM 1. Third trimester Z34.93 POCT urinalysis dipstick manually resulted 2. 28 weeks gestation of Z3A.28 3. Screen for STD (sexually transmitted disease) Z11.3 SURESWAB(R) ADVANCED VAGINITIS PLUS, TMA CHLAMYDIA TRACHOMATIS (GENITO/STI) Neisseria gonorrhea DNA probe, direct 4. Encounter for follow-up ultrasound of anatomy Z36.2 US OB limited 1+ fetuses Return OB: Patient presents today for a routine obstetrics appointment. Patient is currently 28w0d . Patient states she is doing well but has complaints of being tired due to current and cx's were collected at today's visit. Patient has verbalizes frequent movement. labor precautions was discussed/given and patient was instructed to perform kick counts three times a day. Patient was given a repeat anatomy US order at today's visit to have done. The nose and lips were not seen. Pt will schedule with our office to have the US done. Orders Placed This Encounter Procedures US OB limited 1+ fetuses CHLAMYDIA TRACHOMATIS (GENITO/STI) Neisseria gonorrhea DNA probe, direct POCT urinalysis dipstick manually resulted Follow Up: Patient is to return to office in 2 week for routine OB appointment. Documented by Fidelia Bowling MA on behalf of: GEORGI Presley documented in this encounter [facility] 01-23-2025 History of Presen t illness Narrative Reason for Appointment: Patient ID: Shilpi Millard is a 19 y.o. female who presents [...] Documented by GEORGI Presley on behalf of: El Espitia DO documented in this encounter [facility] 12-30-2024 History of Presen t illness Narrative Reason for Appointment: Patient ID: Shilpi Millard is a 19 y.o. female who presents [...] nursing note reviewed. Exam conducted with a blocklayer present. Vitals: Estimated body mass index is [...] ECHO and EKG will be sent to [facility] to be scheduled. Will also send orders for TSH to be drawn every 4 weeks throughout and CBC will also need to be drawn. Patients urine will be sent out for culture today with sample that was provided in office. Documented by Reyna Leal LPN on behalf of: El Espitia DO documented in this encounter [facility] 11-26-2024 History of Presen t illness Narrative Reason for Appointment: Patient ID: Shilpi Millard is a 19 y.o. female who presents [...] nursing note reviewed. Exam conducted with a blocklayer present. Vitals: Estimated body mass index is [...] or undercooked meat, and stay away from [facility]. Patient has been consulted regarding any further do's and don'ts of . Patient voiced understanding and all questions and concerns were answered. Orders Placed This Encounter Procedures US OB 14+ weeks anatomy scan Alpha fetoprotein, maternal POCT urinalysis dipstick manually resulted Follow Up: Patient is to return in 4 weeks for routine OB appointment. Documented by Mary Cody LPN on behalf of: El Espitia DO documented in this encounter [facility] 10-25-2024 History of Presen t illness Narrative Reason for Appointment: Patient ID: Shilpi Millard is a 19 y.o. female who presents [...] Fidelia Bowling MA documented in this encounter [facility] 07-23-2024 History of Presen t illness Narrative Reason for Appointment: Patient ID: Shilpi Millard is a 19 y.o. female who presents [...] nursing note reviewed. Exam conducted with a blocklayer present. Vitals: Estimated body mass index is [...] by Mary Cody LPN on behalf of: El Espitia DO documented in this encounter [facility] 01-11-2023 Evaluation note Encounter Date Diagnosis Assessment Notes Dec, Acute effusion of left ear (ICD-10 - H65.192) try this medication and referral sent to ENT since conservative treatment has been used by urgent care and PCP without improvement of symptoms. [facility] 01-24-2023 Evaluation note* Encounter Date Diagnosis [...] understanding and is agreeable to treatment plan [facility] 08-15-2022 Evaluation note* Encounter Date Diagnosis Assessment Notes Treatment Notes Treatment Clinical Notes Jun, Tooth infection (ICD-10 - K04.7) Take medications as directed.Highly encourage patient to contact dentist CARLY for further treatment of infection. Ok to take OTC medications like ibuprofen with prescriptions [facility] 06-16-2022 Chana Millard is here for consultation at the request of Iker Olivas MD for: Constipation ---History from parent and patient History of Present Illness My advice was requested by Iker Olivas MD. She is accompanied by her mother and sibling(s). No language pathologist was used. ABD pain - Patient has [...] 40mg per day Mirala (more content not included)...[facility]04-13-2022 Hospital Discharge instructions Follow Up Care 03/02/2022 15:03:01 With:Iker OLIVAS MD, PED Address: [address] [place] [address]- When:03/30/2022 Comments:recheck dyspnea/chest pain [facility] 04-13-2022 Hospital Discharge instructions Follow Up Care 03/02/2022 09:25:52 With:Iker OLIVAS MD, PED Address: [address] [place] [address]- When:03/16/2022 Comments:recheck SOB [facility] 04-08-2022 Evaluation note* Encounter Date Diagnosis Assessment [...] 3 days. Feb, Bronchitis (ICD-10 - J40) [facility] 04-05-2022 Hospital Discharge instructions Follow Up Care 02/22/2022 08:51:47 With:Chet DENTON, Marli ENRIQUE Address: When: Unknown Comments:f/up in 2 months for recheck anxiety [facility] 02-21-2022 Evaluation note* Encounter Date Diagnosis Assessment [...] we will help you get into specialist. [facility] 12-15-2021 Evaluation note* Encounter Date Diagnosis Assessment Notes Treatment Notes Treatment Clinical Notes Oct, Sore throat (ICD-10 - J02.9) Oct, Viral pharyngitis (ICD-10 - J02.9) Drink plenty of fluids, get plenty of rest. Tylenol or Motrin for aches pains or fevers. Follow-up with family physician if no improvement in 2 to 3 days for [facility] 10-02-2013 History general Narrative - Reported* Type Description Date Medical History eczema Medical History reactive airway Medical History Radial fracture (resolved 2012) Medical History Strep throat (resolved 1) Surgical History dental reconstruction age 1 [facility] 10-02-2013 History general Narrative - Reported* Type Description Date Medical History eczema Medical History reactive airway Medical History Radial fracture (resolved 2012) Medical History Strep throat (resolved 1) Surgical History dental reconstruction age 1 Surgical History Cyst Removal Left eye 08/2022 [facility] Other Evaluation + Plan note Referrals to Other Providers Referred by: Marli Rosenberg MD [facility] Evaluation + Plan note Future Appointments Appointment Date:03/16/2022 02:00:00 PM Scheduled Provider:Iker OLIVAS MD [facility] Appointment Type:Peds OV 10 Referrals to Other Providers Referred by: Iker OLIVAS MD [facility] Evaluation + Plan note Future Appointments Appointment Date:03/30/2022 08:40:00 AM Scheduled Provider:Iker OLIVAS MD Location[place] Appointment Type:Peds OV 10 [facility] evaluation noteNo assessment information available [facility] Work Phone: evaluation note* Diagnosis Onset Date Resolution Status Acute UTI (urinary tract infection) acute [facility] Work Phone: evaluation note* Diagnosis Encounter for infertility PCOS (polycystic ovarian syndrome) Polycystic ovaries [facility] Diagnosis Missed menses , unspecified gestational age Encounter for supervision of normal first in first trimester 11 weeks gestation of [facility] Diagnosis 15 weeks gestation of Screening, , for anatomic survey Encounter for anatomic survey [facility] Diagnosis Third trimester state, incidental 20 weeks gestation of Near syncope UTI symptoms Lightheadedness Dizziness and giddiness Other headache syndrome [facility] Diagnosis 24 weeks gestation of Third trimester state, incidental Diabetes mellitus screening Screening for diabetes mellitus [facility] Diagnosis Third trimester state, incidental 28 weeks gestation of Screen for STD (sexually transmitted disease) Screening examination for venereal disease Encounter for follow-up ultrasound of anatomy [facility] Diagnosis Third trimester state, incidental 30 weeks gestation of Vaginal discharge Leukorrhea, not specified as infective [facility]* Diagnosis Third trimester state, incidental 32 weeks gestation of [facility]* Diagnosis SGA (small for gestational age)- Primary [id number] without mention of malnutrition, unspecified (weight) [facility] Diagnosis Third trimester state, incidental 34 weeks gestation of [facility] Narrative No data available for this section [facility] InstructionsNot on filedocumented in this encounter [facility] Reason for Referral Reason *FU 02/02 Middle e ar effusion that is persisting Diagnosis 1 Acute effusion of le ft ear (H65.192) Referral Organization [facility] Family Medicin e Michael Referring Provider First Name Lynette Referring Provider Last Name Conrado Referring Provider Specialty Nurse Pract itioner Referred Organization [facility] Referred Provider Fiordaliza Akers Referred Address ,[place], [place],[address] Referred Provider Specialty Ear, Nose an d [...] well. Referral was sent P2P and Fax Betzy Lagunan 01/19/2023 09:28:43 AM >[facility] 09:19:01 AM >Fax 2nd request letter [...] section and content) DATE CREATED AUTHOR 03/02/2023 [facility] DATE CREATED AUTHOR AUTHOR'S ORGANIZ ATION 03/25/2023 [facility] DATE CREATED AUTHOR AUTHOR'S ORGANIZ ATION 12/30/2023 [facility] DATE CREATED AUTHOR AUTHOR'S ORGANIZ ATION 01/10/2025 [facility] DATE CREATED AUTHOR AUTHOR'S ORGANIZ ATION 03/25/[address] [facility] DATE CREATED AUTHOR AUTHOR'S ORGANIZ ATION 03/29/2025 [facility] DATE CREATED AUTHOR AUTHOR'S ORGANIZ ATION 04/08/2025 [facility] FOR RECORDS PERTAINING TO PATIENTS WHO ARE [...] BE BASED ON THE PRIMARY CLINICAL RECORDS. [facility] [employer] [facility]. provides no warranty or guarantee of the accuracy or completeness of information in this document.
[2025-04-08 15:31] VITALS: BP 132/72; PULSE 90
== END 2025-04-08 15:59 | disposition home or self-care (01) ==
LOC: US 14:56 → FBC 14:58
PROVIDERS: PCP Nurse Practitioner Family; Visit Provider Obstetrics & Gynecology
DX: O26.849 Uterine size-date discrepancy, unspecified trimester (principal)
CPT/HCPCS: 76818; 76820

== ENCOUNTER 2025-04-11 09:04 | Outpatient (OUT) | payer OTHER, SELFPAY ==
--- OUTSIDE RECORDS SUMMARY | 2025-04-08 10:47 | XMS_ITS ---
Author Name Auto Generated Organization OHIP Support Name Relationship Address Phone SOLITARIO MILLARD Next of Kin [address] [facility] [place] [address] + SHANELL RENEE [facility] [place] [phone] CÉSAR ARANGO Next of Kin [address] [place] [address] + CÉSAR ARANGO Next of Kin Unknown Annette e CÉSAR ARANGO Next of Kin Unknown Unavailabl e CÉSAR ARANGO Next of Kin Unknown Unavailabl e SOLITARIO MILLARD Next of Kin [address] [facility] [place] [address] + SHANELL RENEE [facility] [place] [phone] CÉSAR ARANGO Next of Kin [address] [place] [address] + SOLITARIO MILLARD Next of Kin [address] [facility] [place] [address] + SHANELL RENEE [facility] [place] [phone] CÉSAR ARANGO Next of Kin [address] [place] [address] + SOLITARIO MILLARD Next of Kin [address] [facility] [place] [address] + SHANELL RENEE [facility] [place] [phone] CÉSAR ARANGO Next of Kin [address] [place] [address] + SOLITARIO MILLARD Next of Kin [address] [facility] [place] [address] + THELMA, SHANELL Next of Kin [place], [place] [phone] CÉSAR ARANGO Next of Kin [address] [place] [address] + FREEMAN, SOLITARIO Next of Kin [address] [facility] [place] [address] + THELMA, SHANELL Next of Kin [place], [place] [phone] CÉSAR ARANGO Next of Kin [address] [place] [address] + FREEMAN, SOLITARIO Next of Kin [address] [facility] [place] [address] + THELMA, SHANELL Next of Kin [place], [place] [phone] CÉSAR ARANGO Next of Kin [address] [place] [address] + FREEMAN, SOLITARIO Next of Kin [address] [facility] [place] [address] + THELMA, SHANELL Next of Kin [place], [place] [phone] CÉSAR ARANGO Next of Kin [address] [place] [address] + FREEMAN, SOLITARIO Next of Kin [address] [facility] [place] [address] + THELMA, SHANELL Next of Kin [place], [place] [phone] CÉSAR ARANGO Next of Kin [address] [place] [address] + FREEMAN, SOLITARIO Next of Kin [address] [facility] [place] [address] + THELMA, SHANELL Next of Kin [place], [place] [phone] CÉSAR ARANGO Next of Kin [address] [place] [address] + FREEMAN, SOLITARIO Next of Kin [address] [facility] [place] [address] + SHANELL RENEE Next of [place], [place] [phone] DINOCÉSAR ROBBINS Next of Kin [address] [place] [address] + SOLITARIO MILLARD Next of Kin [address] [facility] [place] [address] + SHANELL RENEE Next of [place], [place] [phone] CÉSAR ARANGO Next of Kin [address] [place] [address] + DinoCésar robbins Next of Kin [address] [place] [address] + Care Team Providers Care Continuous Improvement Facilitator Name Role Phone JAYLEN, HO Referring Unavailable JAYLEN, HO Attending Unavailable JAYLEN, HO Attending Unavailable AMADA, CASEY Attending Unavailable JAYLEN, HO Attending Unavailable JAYLEN, HO Attending Unavailable JAYLEN, HO Attending Unavailable JAYLEN, HO Attending Unavailable JAYLEN, HO Referring Unavailable AMADA, CASEY Attending Unavailable JAYLEN, HO R Referring Unavailable BAKARI HOWELL Attending Unavailable JAYLEN, HO R Referring Unavailable JAYLEN, HO R Referring Unavailable Isabella Almendarez Attending Unavailable Isabella Almendarez Admitting Unavailable NON STAFF Primary Care Unavailable PROBLEMS DATE TYPE CONDITION / CODE ATTENDING STATUS [facility] 04/03/2025 Unknown [place] small fo r gestational age, 8184-4956 grams / P05.14(ICD-10) [facility] 03/27/2025 Unknown MFM consult / UNK(Unknown) BAKARI HOWELL [facility] 03/27/2025 Unknown [place] small fo r gestational age, unspecified weight / P05.10(ICD-10) [facility] 04/18/2024 Unknown Dysuria / R30.0(ICD-10) Isabella Almendarez Active [facility] PROCEDURES No Procedure Records Found RESULTS US OB FOLLOW UP TRANSABDOMINAL APPROACH Observed: 03/20/2025 11:03 AM Status: F Source: [facility] EPIC Order Comment: US OB SCAN FO R GROWTH Estimated Date of Delivery: 05/15/25 Gestational Age as of 03/06/2025: 31w6d EXAM: US OB FOLLOW UP TRANSA BDOMINAL APPROACH HISTORY: Inconsistent size. A1. ROXANA 05/15/2025. COMPARISON: U/S Ob 03/06/2025 TECHNIQUE: Two-dimensional transabdominal grayscale ultrasound imaging of the pelvis was performed. FINDINGS: Gestation: Single Presentation: Cephalic Cardiac Activity: 137 beats per minute Placental Location: Posterior with no sonographic abnormalities identified. Distance from Placental Tip to Cervix: Not visualized Cervical Length: Not visualized Amniotic Fluid Index: 11.0 cm; MVP: 3.2 cm MEASUREMENTS: BPD: 7.5 cm EGA: 30 weeks 2 days HC: 28.3 cm EGA: 31 weeks 0 days AC: 25.4 cm EGA: 29 weeks 4 days FL: 6.1 cm EGA: 31 weeks 4 days HC/AC Ratio: 1.11 (0.97-1.18) Gestational age by today's ultrasound is 30 weeks 4 days (+/- 15 days gestation). Estimated Weight: 1566 grams, +/- 235 grams ( 3 lb 7 oz). Weight Percentile for gestational age: 6% IMPRESSION: 1. Single, live intrauterine gestation 32 weeks, 0 days by LMP. Today's ultrasound measurements correlate with a gestational age of 30 weeks 4 days. Fetus is measuring in the 6th weight percentile for gestational age. Interpreted by: Electronically signed by ARTURO PUENTE II, MD, PHD at 23-Mar-2025 08:55:00 PM [facility] US OB LIMITED 1+ FETUSES Observed: 03/06 10:06 AM Status: F Source: [facility] EPIC Order Comment: US OB INCOMPL ETE ANATOMY Estimated Date of Delivery: 05/15/25 Gestational Age as of 02/20/2025: 28w0d EXAM: US OB LIMITED 1+ FETUS ES HISTORY: Follow up anatomy. COMPARISON: None available. TECHNIQUE: Two-dimensional transabdominal grayscale ultrasound imaging of the pelvis was performed. FINDINGS: Gestation: Single Presentation: Cephalic Cardiac Activity: 143 beats per minute Placental Location: Posterior with no sonographic abnormalities identified. Cervical canal: Not visualized Amniotic Fluid: Appears adequate ANATOMY Nose/Lips: Unremarkable IMPRESSION: 1. Single, live intrauterine gestation 30 weeks, 0 days by LMP. ROXANA is 05/15/2025. 2. Unremarkable follow-up anatomy of the nose/lips. Interpreted by: Electronically signed by ARTURO PUENTE II, MD, PHD at 08-Mar-2025 06:48:44 PM [facility] US OB 14+ WEEKS ANATOMY SCAN Observed: 0 12/30/2024 1:01 PM Status: F Source: [facility] EPIC Order Comment: US OB ANATOMY SINGLE W US OB CERVICAL LENGTH Estimated Date of Delivery: None noted. Gestational Age as of 11/26/2024: Unknown EXAM: US OB 14+ WEEKS ANATOM Y SCAN HISTORY: anatomy. TECHNIQUE: Two-dimensional transabdominal grayscale [...] A short-term follow-up ultrasound is recommended. Electronically Signed:Electronically signed by ARTURO PUENTE II, MD, PHD at 01-Jan-2025 08:23:57 AM [facility] URINE CULTURE Observed: 04/18/2024 2:40 PM Status: F Source: [facility] 50,000 colonies/ml mixed bacterial skin contaminants 2 Days PERFORMED BY: [place] [address] PATHOLOGIST [employer]ANALYT[employer] TEAM LEAD MADAN TRIVEDI M.D. Performed By: #### CUU #### [address] ALLERGIES DATE TYPE / CODE NAME / CODE REACTION SEVERITY SOURCE 11/19/2024 Drug Allergy/4160 32317(SNOMED CT) contact metal agent/[id number](RXNORM) Rash Moderate (Severity Modifier) (Qualifier Value) [facility] 11/19/2024 Drug Allergy/4160 61633(SNOMED CT) coconut/[id number] 176(RXNORM) Nausea Unknown [facility] 04/18/2024 DRUG INGREDI/4195 70718(SNOMED CT) COCONUT GI Disturbance [facility] 05/05/2022 DRUG INGREDI/4195 85499(SNOMED CT) IRON Hives [facility] 09/24/2019 DRUG INGREDI/4195 77850(SNOMED CT) LATEX Hives Low [facility] ENCOUNTERS ADMIT/DISCHARGE ACCOUNT NUMBER ADMITTING ENCOUNTER CLASS LOCATION SOURCE 04/08/2025/04/08/20 [id number] Ambulatory Building:[facility] OB [facility] EPIC 04/03/2025 [id number] Ambulatory Buildin [address] [facility] 03/27/2025/03/27/20 [id number] Ambulatory Buildin 4 [facility] 03/27/2025/03/27/20 25 [id number] Ambulatory Buildin 01 [facility] 03/20/2025/03/20/20 25 [id number] Ambulatory Building:[facility] BCP OB [facility] EPIC 03/20/2025/03/20/20 25 [id number] Ambulatory Building:[facility]CP OB [facility] EP[facility] 03/06/2025/03/06/20 25 [id number] Ambulatory Building:[facility] OB [facility] EP[facility] 03/06/2025/03/06/20 25 [id number] Ambulatory Building:[facility] OB [facility] EPIC 02/20/2025/02/21/20 25 [id number] Ambulatory Building:[facility] OB [facility] EP[facility] 01/23/2025/01/24/20 25 [id number] Ambulatory Building:[facility] OB [facility] EP[facility] 12/30/2024/12/30/19 25 [id number] Ambulatory Building:[facility] OB [facility] EP[facility] 12/30/2024/12/30/19 25 [id number] Ambulatory Building:[facility] OB [facility] EP[facility] 11/26/2024/11/26/19 25 [id number] Ambulatory Building:[facility] OB [facility] EP[facility] 10/25/2024/10/25/20 24 [id number] Ambulatory Building:[facility] OB [facility] 07/23/2024/07/23/20 24 [id number] Ambulatory Building:[facility] OB [facility] 04/18/2024/04/18/20 24 [id number] [facility] ENCOUNTER GUARANTOR PAYER SUBSCRIBER SOURCE 04/08/2025 YIN RDZ: [id number] [place], [place] [address]Oom: () Primary Insurance:Health system Number: [id number] Date:2013-11-20 SOLITARIO RDZ: [id number] [place] [address] [facility] EPIC 04/08/2025 Secondary Insurance:[facility] MEDICAIDPolicy Number: [id number] Date:2024-02-08 YIN Olmstead SHERRIEB: [id number] [place] [address] [facility] 04/03/2025 YIN SHERRIEB: [place], [place] [address]Sro: (HP) Primary Insurance:[facility] MED RESOURCESPolicy Number: [id number] Date:2013-11-20 SOLITARIO BALDERASB: [id number] [address] [facility] 04/03/2025 Secondary Insurance:[facility]ICA[facility] OPolicy Number: [id number] Date:2025-03-20 YIN SHERRIEB: [id number] [place], [place] [address]Vhi: (HP) [facility] 03/27/2025 YIN SHERRIEB: [place], [place] [address]Dkz: (HP) Primary Insurance:[facility] OPolicy Number: [id number] Date:2025-03-20 YIN SHERRIEB: [id number] [place], [place] [address]Zdl: (HP) [facility] 03/27/2025 Secondary Insura nce:[facility] MED RESOURCESPolicy Number: [id number] Date:2013-11-20 SOLITARIO BALDERASB: [id number] [address] [place] [address] [facility] 03/27/2025 YIN BALDERASB: [place], [place] [address]Haq: (HP) Primary Insurance:[facility] MED RESOURCESPolicy Number: [id number] Date:2013-11-20 SOLITARIO RDZ: [id number] [address] [address] [address] [facility] 03/27/2025 Secondary Insurance:[employer] MEDICAID HMOPolicy Number: [id number] Date:2025-03-20 YIN SHERRIEB: [id number] [place], [place] [address]Wpu: (HP) [facility] 03/20/2025 YIN Olmstead SHERRIEB: [place], [place] [address]Whx: (HP) Primary Insurance:[place] HEALTHCAREPolicy Number: [id number] Date:2013-11-20 SOLITARIO BALDERASB: [id number] [place] [address] [facility] EPIC 03/20/2025 Secondary Insurance:[employer] MEDICAIDPolicy Number: [id number] Date:2024-02-08 YIN Olmstead SHERRIEB: [id number] [place] [address] [facility] EPIC 03/20/2025 YIN M SHERRIEB: [place], [place] [address]Buc: (HP) Primary Insurance:[employer] HEALTHCAREPolicy Number: [id number] Date:2013-11-20 SOLITARIO BALDERASB: [id number] [place] [address] [facility] EP[facility] 03/20/2025 Secondary Insurance:[facility] MEDICAIDPolicy Number: [id number] Date:2024-02-08 YIN M SHERRIEB: [id number] [place] [address] [facility] EPIC 03/06/2025 YIN Olmstead SHERRIEB: [place], [place] [address]Haj: (HP) Primary Insurance:[place] HEALTHCAREPolicy Number: [id number] Date:2013-11-20 SOLITARIO RDZ: [id number] [place] [address] [facility] EPIC 03/06/2025 Secondary Insurance:[employer] MEDICAIDPolicy Number: [id number] Date:2024-02-08 YIN Olmstead SHERRIEB: [id number] [place] [address] [facility] EPIC 03/06/2025 YIN Olmstead SHERRIEB: [place], [place] [address]Uko: (HP) Primary Insurance:UNITED HEALTHCAREPolicy Number: [id number] Date:2013-11-20 SLOITARIO MILLARDB: [id number] [facility] [address] [facility] EP[facility] 03/06/2025 Secondary Insurance:[employer] MEDICAIDPolicy Number: [id number] Date:2024-02-08 YIN Olmstead SHERRIEB: [id number] [place] [address] [facility] EP[facility] 02/20/2025 YIN Olmstead SHERRIEB: [facility] [place] [address]Fqc: (HP) Primary Insurance:UNITED HEALTHCAREPolicy Number: [id number] Date:2013-11-20 SOLITARIO SHERRIEB: [id number] [facility] [place] [address] [facility] 02/20/2025 Secondary Insurance:[employer] MEDICAIDPolicy Number: [id number] Date:2024-02-08 YIN Olmstead SHERRIEB: [id number] [facility] [address] [facility] 01/23/2025 YIN M SHERRIEB: [place] [address]Etr: (HP) Primary Insurance:UNITED HEALTHCAREPolicy Number: [id number] Date:2013-11-20 SOLITARIO BALDERASB: [id number] [place] [address] [facility] EP[facility] 01/23/2025 Secondary Insurance:[facility] MEDICAIDPolicy Number: [id number] Date:2024-02-08 YIN Olmstead SHERIREB: [id number] [place] [address] [facility] EP[facility] 12/30/2024 YIN Aysha SHERRIEB: [place] [address]Yoh: (HP) Primary Insurance:[place] HEALTHCAREPolicy Number: [id number] Date:2013-11-20 SOLITARIO RDZ: [id number] [place] [address] [facility] EP[facility] 12/30/2024 Secondary Insurance:[facility] [place] MEDICAIDPolicy Number: [id number] Date:2024-02-08 YIN M SHERRIEB: [id number] [place] [address] [facility] EP[facility] 12/30/2024 YIN BALDERASB: [place] [address]Bis: (HP) Primary Insurance:[place] HEALTHCAREPolicy Number: [id number] Date:2013-11-20 SOLITARIO RDZ: [id number] [place] [address] [facility] EP[facility] 12/30/2024 Secondary Insurance:[facility] MEDICAIDPolicy Number: [id number] Date:2024-02-08 YIN Aysha SHERRIEB: [id number] [place] [address] [facility] EP[facility] 11/26/2024 YIN BALDERASB: [place] [address]Jjm: (HP) Primary Insurance:UNITED HEALTHCAREPolicy Number: [id number] Date:2013-11-20 SOLIT[address]IO [address]Z: [id number] [address] [facility] [place] [address] [facility] EP[facility] 11/26/2024 Secondary Insurance:[facility] MEDICAIDPolicy Number: [id number] Date:2024-02-08 YIN Olmstead SHERRIEB: [id number] [address] [facility] [place] [address] [facility] EP[facility] 10/25/2024 YIN Olmstead SHERRIEB: [address] [facility] [place] [address]Eqj: (HP) Primary Insurance:UK HEALTHCAREPolicy Number: [id number] Date:2013-11-20 SOLITARIO MILLARDB: [id number] [address] [facility] [place] [address] [facility] EP[facility] 10/25/2024 Secondary Insurance:[facility] MEDICAIDPolicy Number: [id number] Date:2024-02-08 YIN Olmstead SHERRIEB: [id number] [address] [facility] [place] [address] [facility] EPIC 07/23/2024 YIN Olmstead SHERRIEB: [address] [facility] [place] [address]Ntz: (HP) Primary Insurance:[place] HEALTHCAREPolicy Number: [id number] Date:2013-11-20 SOLITARIO MILLARDB: [id number] [place] [address] [facility] EP[facility] 07/23/2024 Secondary Insurance:[facility] MEDICAIDPolicy Number: [id number] Date:2024-02-08 YIN Olmstead SUSAN: [id number] [place] [address] [facility] 04/18/2024 Yin Olmstead [id number] [place] [address]Wkv: (HP) Primary Insurance:[facility] HOSPITALolicy Number: [id number] Date:[id number] [address]VV: Solitario Rdz: [id number] [place] [address]Ugi: () [facility] 04/18/2024 Secondary Insurance:[facility] [place] MedicaidPolicy Number: [id number] Date:[id number] [address]JE: Yin Rdz: [id number] [place] [address]Cdq: () [facility] 04/18/2024 Tertiary Insuran ce:Self PayPolicy Number: Effective Date:2024-04-18 [facility]
[2025-04-11 09:17] VITALS: BP 119/70; PULSE 85
== END 2025-04-11 09:40 | disposition home or self-care (01) ==
LOC: FBCO 09:04 → FBC 09:05
PROVIDERS: PCP Nurse Practitioner Family; Visit Provider Obstetrics & Gynecology
DX: O36.5930 Maternal care for other known or suspected poor fetal growth, third trimester, not applicable or unspecified (principal)
CPT/HCPCS: 59025

== ENCOUNTER 2025-04-15 09:59 | Outpatient (OUT) | payer OTHER, SELFPAY ==
[2025-04-15 10:31] VITALS: BP 112/64; PULSE 76
== END 2025-04-15 10:55 | disposition home or self-care (01) ==
LOC: US 09:59 → FBC 10:00
PROVIDERS: PCP Nurse Practitioner Family; Visit Provider Obstetrics & Gynecology
DX: O26.843 Uterine size-date discrepancy, third trimester (principal); Z3A.35 35 weeks gestation of pregnancy
CPT/HCPCS: 76818; 76820; 87081

== ENCOUNTER 2025-04-15 19:27 | Outpatient (REF) | payer OTHER, SELFPAY ==
--- OUTSIDE RECORDS SUMMARY | 2008-12-11 06:30 | XMS_ITS | Continuity of Care Document ---
Author Organization [facility] Address [address] [place] [address] Phone Care Team Providers Care Occupational Nurse Name Role Phone Shante DANIEL Danielito Unavailable Unavailable Procedures Procedure Date FLU VACCINE, 3 YRS, IM Advance Directives Directive Yes / No Effective Date File Name No Information Encounters Encounter Description Practice Location Reason(s) For Visit Diagnoses Date Provider Providers Copied on Encounter [facility], [address] [place], [place], [id number], tel:[phone] [facility] No Information Shante Christensen. [address] [place], [place], [id number], [place]. tel:[phone] Family History Family Member Type Diagnosis Age [...]
--- OUTSIDE RECORDS SUMMARY | 2024-07-02 05:16 | XMS_ITS ---
Author Organization The [facility] in [place] Address [address] [place] [address] Care Team Providers Care Tricot Knitting Machine Operator Name Role Phone Maddie Gould Primary Care Provider REASON FOR VISIT + covid Medications Medication SIG (Take, Route, Frequency, Duration) Notes Start Date End Date Status Paxlovid (300/100) 20 x 150 MG & 10 x 100MG 3 tablets Orally Twice a day for 5 days 07/02/2024 Active Encounters Encounter Location Date Provider Diagnosis [facility] [address] [place] [address] 07/02/2024 Maddie Gould Plan Of Treatment Medication Medication Name Sig Start Date Stop Date Notes Paxlovid (300/100) 20 x 150 MG & 10 x 100MG 3 tablets Orally Twice a day for 5 days 07/02/2024 Progress Notes * Shilpi MILLARD MDOB:2005 (19 yo F)Acc No.[id number]:07/02/2024 Patient: Shilpi ARGUETA :2005 A ge:19 Y S ex:Female Address:[address] [place] [address] * Refills Start Paxlovid (300/100) Tablet Therapy [...] Date: Generated for Amina nguyen/Berkley/Uriah on: 0 04/15/2025 07:32 PM EDT
--- OUTSIDE RECORDS SUMMARY | 2024-10-16 05:30 | XMS_ITS ---
Author Organization [facility] in [place] Address [address] [place] [address] Care Team Providers Care Orthodontic Technician Name Role Phone Maddie Gould Primary Care [...] Provider Diagnosis [facility] [address] [place] [address] 10/16/2024 Maddie Gould Seasonal allergic rhinitis J30.2 [...] * Shilpi MILLARD MDOB:2005 (19 yo F)Acc No.[id number]:10/16/2024 Progress Note Patient: Shilpi ARGUETA Provider: Stacie Gould ([facility]), SHELL MOLDER :2005 A ge:19 Y S ex:Female Date:10/16/2024 Address:[address] [id number] Check In:09:26 AM ESTCheck O ut:10:17 AM [...] (Check Out) true * Provider: Stacie Gould ([facility]), SHELL MOLDER Date: 12/16/2023 Generated for Printi ng/Fanaldog/eTransmitting on: 0 04/15/2025 07:31 PM EDT History and Physical Notes * [...]
--- OUTSIDE RECORDS SUMMARY | 2024-10-16 06:57 | XMS_ITS ---
Author Organization [facility] in [place] Address [address] [place] [address] Care Team Providers Care Worm Farmer Name Role Phone Maddie Gould Primary Care Provider REASON FOR VISIT allergy Encounters Encounter Location Date Provider Diagnosis [facility] [address] [place] [address] 10/16/2024 Maddie Gould Plan Of Treatment No Information Progress Notes * Shilpi MILLARD MDOB:2005 (19 yo F)Acc No.[id number]:10/16/2024 Patient: Ronald Shilpi MARTINEZ :2005 A ge:19 Y S ex:Female Address:[address] [place] [address] * true * Date: Generated for Printi ng/Faxing/eTransmitting on: 0 04/15/2025 01:05 PM EDT
--- OUTSIDE RECORDS SUMMARY | 2025-04-08 10:50 | XMS_ITS | Encounter Summary ---
Author Organization [facility] Address [address] [place] [address] Care Team Providers Care Die Repairer Stamping Name Role Phone Unavailable Primary Care Provider Unavailabl e Reason for Visit * Reason Comments Routine Visit Encounter Details Date Type Department Care Team (Late st Contact Info) Description 04/08/2025 10:50 AM EDT Routine [facility] [address] [address] Nhung Adamson PA [address] [facility] [address] [place], [facility] Third trimester ; 34 weeks gestation of Social History Tobacco Use Types Packs/Day Years Used Date Smoking Tobacco: Never Smokeless Tobacco: Never Alcohol Use Standard Drinks/Week Comments Never 0 (1 standard drink = 0.6 oz pure alcohol) caffeine: pop/tea once or twice a week Estimated Date of Delivery Comme nts Yes 05/15/2025 Based on Ultraso und Sex and Gender Information Value Date Recorded Sex Assigned at Female 07/23/2024 1:01 AM EDT Legal Sex Female 7:01 PM EDT Gender Identity Female 07/23/2024 1:01 AM EDT Sexual Orientation Not on file documented as of this encounter Last Filed Vital Signs Vital Sign Reading Time Taken Comments Blood Pressure 102/70 04/08/2025 11:15 AM EDT Pulse - - Temperature - - Respiratory Rate - - Oxygen Saturation - - Inhaled Oxygen Concentration - - Weight 68.8 kg (151 lb 9.6 oz) 04/08/2025 11:15 AM EDT Height - - Body Mass Index 26.02 11/27/2023 10:51 AM EST documented in this encounter Progress Notes * GEORGI Presley - 04/08/2025 10:50 AM EDT Reason for Appointment: Patient ID: Shilpi Ware is a 20 y.o. female who presents for Routine Visit Patient presents today for Return OB appointment. MEDICATIONS No current outpatient medications ALLERGIES Allergies Allergen Reactions Coconut (Cocos Nucifera) GI intolerance Other Reaction(s): GI Disturbance Iron Hives Other Unknown METAL Latex Rash, Unknown and Hives PROBLEMS Active Ambulatory Problems Diagnosis Date Noted [...] reviewed. Vitals: Estimated body mass index is 26.02 kg/m?? as calculated from the following: Height as of 11/27/23: 5' 4 . Weight as of this encounter: 151 lb 9.6 oz. BP: 102/70 Patient's last menstrual period was 07/15/2024 (approximate). ASSESSMENT & PLAN ICD-10-CM 1. Third trimester Z34.93 POCT urinalysis dipstick manually resulted 2. 34 weeks gestation of Z3A.34 POCT urinalysis dipstick manually resulted Return OB: Patient presents today for a routine obstetrics appointment. Patient is currently 34w5d . Patient states she is doing well but has complaints of being tired due to current . Patient has verbalizes frequent movement. labor precautions was discussed/given and patient was instructed to perform kick counts three times a day. Orders Placed This Encounter Procedures POCT urinalysis dipstick manually resulted Follow Up: Patient is to return to office in 1 week for routine OB appointment. Documented by GEORGI Presley on behalf of: GEORGI Presley documented in this encounter Plan of Treatment Upcoming Encounters Date Type Department Care Team (Late st Contact Info) Description 04/22/2025 1:50 PM EDT Routine [facility] [address] [place] [address] Nhung Adamson PA [address] [facility] [place] [address] documented as of this encounter Procedures Procedure Name Priority Date/Time Associated Diagnosis Comments POCT URINALYSIS DIPSTICK Routine 04/08/2025 11:24 AM EDT Third trimester 34 weeks gestation of documented in this encounter Results * POCT urinalysis dipstick manually resulted (04/08/2025 11:24 AM EDT) Color, UA Yellow Clarity, UA Clear Glucose, UA Negative Negative - 2000(110) ++++ mg/dL Bilirubin, UA Negative Negative - 4(70) +++ mg/dL Ketones, UA Negative Negative - 160(16) ++++ mg/dL Spec Grav, UA 1.020 1 - 1.03 Blood, UA Negative Negative - 50 Rambo/mcL pH, UA 5.5 5 - 9 Protein, UA Negative Negative - 2000(20) ++++ mg/dL Urobilinogen, UA 1.0 0.2 - 12 mg/dL Leukocytes, UA Negative Negative - 500+++ Charity/mcL Nitrite, UA Negative Negative - Positive Urine 04/08/2025 11:2 4 AM EDT Nhung LAUREANO POINT OF CARE TEST ENTER/EDIT OR DERABLES Final Result documented in this encounter Visit Diagnoses Diagnosis Third trimester state, incidental 34 weeks gestation of documented in this encounter
--- OUTSIDE RECORDS SUMMARY | 2025-04-15 13:10 | XMS_ITS | Encounter Summary ---
Author Organization [facility] Address [address] [place] [address] Care Team Providers Care Rn Neonatal Icu Name Role Phone Unavailable Primary Care Provider Unavailabl e Encounter Details Date Type Department Care Team (Late st Contact Info) Description 04/15/2025 1:10 PM EDT Routine [facility] [address] [place] [address] El Espitia, DO [address] Zaira [place], [id number] Third trimester ; Poor growth affecting management of mother in first trimester, single or unspecified fetus Social History Tobacco Use Types Packs/Day Years [...] Sign Reading Time Taken Comments Blood Pressure 100/68 04/15/2025 1:42 PM EDT Pulse - - Temperature - - Respiratory Rate - - Oxygen Saturation - - Inhaled Oxygen Concentration - - Weight 69.1 kg (152 lb 6.4 oz) 04/15/2025 1:42 P M EDT Height - - Body Mass Index 26.16 11/27/2023 10:51 AM EST documented in this encounter Plan of Treatment Upcoming Encounters Date Type Department Care Team (Late st Contact Info) Description 04/22/2025 1:50 PM EDT Routine [facility] [address] [facility] [address] Nhung Adamson PA [address] [place] [address] Scheduled Orders Name Type Priority Associated Diagnoses Orde r Schedule CULTURE, GROUP B STREP WITH SUSCEPTIBLITY Lab Routine Third trimester Expected: 04/15/2025, Expires: 04/15/2026 documented as of this encounter Visit Diagnoses Diagnosis Third trimester state, incidental Poor growth affecting management of mother in first trimester, single or unspecified fetus documented in this encounter
--- OUTSIDE RECORDS SUMMARY | 2025-04-15 19:31 | XMS_ITS | Encounter Summary ---
Author Organization [facility] Address [address] [facility] [place] [address] Care Team Providers Care Imaging Clerk Name Role Phone Unavailable Primary Care Provider Unavailabl e Encounter Details Date Type Department Care Team (Late Contact Info) Description 04/08/2025 Bamboo flowsheet [facility] [address] [place] [address] Nhung Adamson PA [address] [facility] [address] [place] [id number] Social History Tobacco Use Types Packs/Day Years [...] on file documented as of this encounter Plan of Treatment Upcoming Encounters Date Type Department Care Team (Late Contact Info) Description 04/22/2025 1:50 PM EDT Routine [facility] [address] [place] [address] [place], Nhung, PA [address] [place] [address] Dr [place], [id number] documented as of this encounter Visit Diagnoses Not on filedocumented in this encounter
--- OUTSIDE RECORDS SUMMARY | 2025-04-15 19:31 | XMS_ITS | Encounter Summary ---
Author Organization [facility] Address [address] [facility] [place] [address] Care Team Providers Care Executive Kitchen Manager Name Role Phone Unavailable Primary Care Provider Unavailabl e Encounter Details Date Type Department Care Team (Late st Contact Info) Description 04/09/2025 Abstract [facility] [address] [place] [address] El Espitia, DO [address] [facility] [address] Zaira [place], [facility]11 Social History Tobacco Use Types Packs/Day Years [...] Routine [facility] [address] [place] [address] Nhung Adamson PA [address] [place] [address] [place] [address] documented as of this encounter Visit Diagnoses Not on filedocumented in this encounter
--- OUTSIDE RECORDS SUMMARY | 2025-04-15 19:31 | XMS_ITS | Encounter Summary ---
Author Organization [facility] Address [address] [facility] [place] [address] Care Team Providers Care Manager Medicaid Name Role Phone Unavailable Primary Care Provider Unavailabl e Encounter Details Date Type Department Care Team (Late Contact Info) Description 04/15/2025 Bamboo flowsheet [facility] [address] [place] [address] El Espitia, [address], [facility]11 Social History Tobacco Use Types Packs/Day [...] Routine [facility] [address] [place] [address] Nhung Adamson PA [address] [place] [address] [place] [address] documented as of this encounter Visit Diagnoses Not on filedocumented in this encounter
--- OUTSIDE RECORDS SUMMARY | 2025-04-15 19:31 | XMS_ITS | Clinical Summary ---
Author Organization [facility] Address [address] [place] [place] [address] Care Team Providers Care It Teacher Name Role Phone Unavailable Primary Care Provider Unavailabl e Allergies Active Allergy Reactions Criticality Noted Date Comments Coconut (Cocos Nucifera) GI intolerance Medium 04/18/2024 Other Reaction(s): GI Disturbance Iron Hives Medium 05/05/2022 Latex Rash,Unknown,Hives Low 09/24/2019 Other Unknown 09/24/2019 METAL Medications terconazole (Terazol 7) 0.4 % vaginal creamIndication s:Yeast infection Insert 1 applicator into the vagina at bedtime for 7 days 45 g 5 03/25/20 25 Active Problems Problem Noted Date Diagnosed Date Near syncope 12/30/2024 20 weeks gestation of 12/30/2024 15 weeks gestation of 11/26/2024 Estimated Date of Delivery Comme nts Yes 05/15/2025 Based on Ultraso und Encounters Date Type Department Care Team Description 04/15/2025 1:10 PM EDT Routine [facility] [address] [place], [place] [address] [address] Ho Espitia DO Third trimester ; Poor growth affecting management of mother in first trimester, single or unspecified fetus 04/15/2025 Bamboo flowsheet [facility] [address] [place], [place] [address] [address] Ho Espitia, DO 04/09/2025 Abstract [facility] [address] [place] [address] Ho Espitia, DO 04/08/2025 10:50 AM EDT Routine [facility] [address] [place] [place] [address] Nhung Adamson PA Third trimester ; 34 weeks gestation of 04/08/2025 Clinisync Result Encounter [facility] External Department Unsolicited Ho Espitia, DO 04/08/2025 Bamboo flowsheet [facility] [address] [place] [place] [address] Nhung Adamson PA 04/04/2025 Abstract [facility] [address] [place] [place] [address] Sofy Huntley MA 03/27/2025 Abstract [facility] [address] [place] [place] [address] Ho Espitia, DO 03/25/2025 Clinisync Result Encounter [facility] External Department Unsolicited Ho Espitia, DO 03/25/2025 Telephone [facility] [address] [place] [place] [address] Ho Espitia, DO 03/20/2025 11:30 AM EDT Ancillary Procedure [facility] [address] [place] [address] size inconsistent with dates 03/20/2025 10:30 AM EDT Routine [facility] [address] [place] [address] Ho Espitia, Third trimester ; 32 weeks gestation of ; Small for gestational age 0503/20/2025 Bamboo flowsheet [facility] [address] [place] [address] Ho Espitia, DO 03/19/2025 Telephone [facility] [address] [place] [address] Fidelia Bowling, DANA 03/18/2025 Telephone [facility] [address] [facility] [place] [address] Fidelia Bowling, DANA 03/10/2025 Results Follow-Up [facility] [address] [place] [address] Feliciano MaryJACKI malcolm 03/06/2025 10:50 AM EDT Routine [facility] [address] [place] [address] Ho Espitia, Third trimester ; 30 weeks gestation of ; Vaginal discharge; size inconsistent with dates 03/06/2025 10:00 AM EDT Ancillary Procedure [facility] [address] [place] [address] Encounter for follow-up ultrasound of anatomy 02/20/2025 10:20 AM EDT Routine [facility] [address] [place] [address] Nhung Adamson PA Third trimester ; 28 weeks gestation of ; Screen for STD (sexually transmitted disease); Encounter for follow-up ultrasound of anatomy 02/20/2025 Bamboo flowsheet [facility] [address] [place] [place] [address] Nhung Adamson PA 02/13/2025 Clinisync Result Encounter [facility] External Department Unsolicited Ho Espitia, DO 02/13/2025 Telephone [facility] [address] [place] [address] Ho Espitia, DO 01/30/2025 Clinisync Result Encounter [facility] External Department Unsolicited Ho Espitia, DO 01/30/2025 Clinisync Result Encounter [facility] External Department Unsolicited Ho Espitia, DO 01/23/2025 10:20 AM EST Routine [facility] [address] [place] [address] Ho Espitia DO 24 weeks gestation of ; Third trimester ; Diabetes mellitus screening 01/23/2025 Bamboo flowsheet [facility] [address] [place] [address] [place] [address] Ho Espitia DO 01/16/2025 Clinisync Result Encounter [facility] External Department Unsolicited Ho Espitia DO from Last 3 Months Family History Medical History Relation Name Comments Asthma Other Decrease in bone density due to depo Other Diabetes Other Hypertension Other Ovarian cysts Other Relation Name Status Comments Brother 1 Alive Brother 2 Alive Father Alive Maternal Grandfather Alive Maternal Grandmother Alive Mother Alive Other Paternal Grandfather Alive Paternal Grandmother Alive Sister Alive Social History Tobacco Use Types Packs/Day Years Used Date Smoking Tobacco: Never Smokeless Tobacco: Never Tobacco Cessation:Counseling Given: Not Answered Alcohol Use Standard Drinks/Week Comments Never 0 [...] AM EDT Sexual Orientation Not on file Last Filed Vital Signs Vital Sign Reading Time Taken Comments Blood Pressure 100/68 04/15/2025 1:42 PM EDT Pulse - - Temperature - - Respiratory Rate - - Oxygen Saturation - - Inhaled Oxygen Concentration - - Weight 69.1 kg (152 lb 6.4 oz) 04/15/2025 1:42 P M EDT Height 162.6 cm (5' 4 ) 11/27/2023 10:51 AM EST Body Mass Index 26.16 11/27/2023 10:51 AM EST Plan of Treatment Upcoming Encounters Date Type Department Care Team (Late st Contact Info) Description 04/22/2025 1:50 PM EDT Routine [facility] [address] [place] [address] Nhung Adamson PA [address] [place] [address] [place] [address] Health Maintenance Due Date Last Done Comments Influenza Vaccine (Season Ended) 2025 12/10/2013, 12/11/2008, 2004 Procedures Procedure Name Priority Date/Time Associated Diagnosis Comments US OB BPP W NON-STRESS 04/08/2025 4:40 PM EDT POCT URINALYSIS DIPSTICK Routine 04/08/2025 11:24 AM EDT Third trimester 34 weeks gestation of US OB BPP W NON-STRESS 03/25/2025 11:32 AM EDT US OB FOLLOW UP TRANSABDOMINAL APPROACH Routine 03/20/2025 12:13 PM EDT size inconsistent with dates RECURRENT VAGINITIS (HTRX) Routine 03/06/2025 11:23 AM EDT POCT URINALYSIS DIPSTICK Routine 03/06/2025 10:57 AM EDT 30 weeks gestation of US OB LIMITED 1+ FETUSES Routine 03/06/2025 10:34 AM EDT Encounter for follow-up ultrasound of anatomy RECURRENT VAGINITIS (HTRX) Routine 02/20/2025 12:17 PM EDT POCT URINALYSIS DIPSTICK Routine 02/20/2025 11:02 AM EDT Third trimester TBH URINE MICROSCOPIC ONLY Routine 02/13/2025 3:30 PM EDT TBH UA (CLEAN/CATCH) METAL WELDER/MICRO IF IND. Routine 02/13/2025 3:30 PM EDT CA ECHO DOPPLER COMPLETE 01/30/2025 8:11 PM EDT GLUCOSE 1 HOUR Routine 01/30/2025 11:49 AM EDT ALL CBC WITH AUTO DIFF Routine 11:49 AM EDT POCT URINALYSIS DIPSTICK Routine 01/23/2025 10:53 AM EST 24 weeks gestation of Third trimester ALL THYROID STIM HORMONE Routine 01/16/2025 1:57 PM EST ALL CBC WITH AUTO DIFF Routine 1:57 PM EST from Last 3 Months Results * US OB BPP W NON-STRESS (04/08/2025 4:40 PM EDT) Only the most recent of2 resultswithin the time period is included. Anatomical Region Laterality Modality Other 04/08/2025 4:40 PM EDT Narrative 04/08/2025 4:43 [place] [address] Ultrasound Report Signed Patient: YIN MILLARD MR#: [id number] : 2005 Acct:[id number] Age/Sex: 20 / F ADM Date: 04/08/25 Loc: US Attending Dr: Ho Espitia D.O. Ordering Physician: Ho Espitia D.O. Date of Service: 04/08/25 Procedure(s): US OB BPP w non-stress Accession Number(s): [id number] cc: BUCKY COREA ; Ho Espitia D.O. The [address] [address] Patient Name: YIN MILLARD MRN: [id number] date: 2005 Sex: F Assigned Patient Location: [facility] Current Patient Location: Accession/Order Number: [id number] Exam Date: 04/08/2025 16:39 Report Date: 04/08/2025 16:40 At the request of: HO NUPUR DO Procedure: US OB BPP w non-stress Ultrasound biophysical profile HISTORY: Small for gestational age. There is adequate breathing movement, gross body movement, tone and amniotic fluid volume for total score of 8 out of 8. Amniotic fluid index is 12.9 cm within normal limits. heart rate 126 bpm. US/US OB BPP w non-stress IMPRESSION: Adequate biophysical profile. Impression dictated by: Franck Soto M.D. 04/08/2025 4:40 PM Dictation [facility] Electronically authenticated by: [id number] Y Date: 04/08/2025 16:40 Dictated By: Franck Soto D.O. Signed By: 04/08/25 1643 DD/ 1640 TD/TT: Comic Illustrator: Procedure Note Radiology, Radiologist, - 04/08/2025 [place] [address] Ultrasound Report Signed Patient: YIN MILLARD MMR#: [id number] : 2005Acct:[id number] Age/Sex: 20 FADM Date: 04/08/25 Loc: US Attending Dr: Ho Espitia D.O. Ordering Physician: Ho Espitia D.O. Date of Service: 04/08/25 Procedure(s): US OB BPP w non-stress Accession Number(s): [id number] cc: BUCKY COREA ; Ho Espitia D.O. The [place] [id number] Patient Name: YIN MILLARD MRN: [id number] date: 2005 Sex: F Assigned Patient Location: [facility] Current Patient Location: Accession/Order Number: [id number] Exam Date: 04/08/2025 16:39 Report Date: 04/08/2025 16:40 At the request of: HO ESPITIA DO Procedure: US OB BPP w non-stress Ultrasound biophysical profile HISTORY: Small for gestational age. There is adequate breathing movement, gross body movement, fetaltone and amniotic fluid volume for total score of 8 out of 8. Amniotic fluidindex is 12.9 cm within normal limits. heart rate 126 bpm. US/US OB BPP w non-stress IMPRESSION: Adequate biophysical profile. Impression dictated by: Franck Soto M.D. 04/08/2025 4:40 PM Dictation Location: [place] [address] Electronically authenticated by: [id number] Y Date: 6:40 Dictated By: Franck Soto D.O. Signed By:04/08/25 1643 DD/ 1640 TD/TT: Comic Illustrator: us Ho Nupur DO [facility]AG[facility] Final Result * POCT urinalysis dipstick manually resulted (04/08/2025 11:24 AM EDT) Only the most recent of4 resultswithin the time period is included. Color, UA Yellow Clarity, UA Clear Glucose, [...] Positive Urine 04/08/2025 11:2 4 AM EDT us Nhung LAUREANO POINT OF CARE TEST ENTER/EDIT OR DERABLES Final Result * US OB follow up transabdominal approach (03/20/2025 12:13 PM EDT) Anatomical Region Laterality Modality Body Ultrasound 03/23/2025 8:56 PM EDT Narrative 03/23/2025 8:56 PM EDT EXAM: US OB FOLLOW UP TRANSABDOMINAL APPROACH [...] age. Interpreted by: Electronically signed by ARTURO ALVAREZ II, MD, PHD at 23-Mar-2025 08:55:00 PM [facility] Procedure Note Arturo Alvarez MD - 03/23/2025 EXAM: US OB FOLLOW UP TRANSABDOMINAL APPROACH HISTORY: Inconsistent size. A1. ROXANA 05/15/2025. COMPARISON: U/S Ob 03/06/2025 TECHNIQUE: Two-dimensional transabdominal grayscale ultrasound imaging ofthe pelvis was performed. FINDINGS: Gestation: Single Presentation: Cephalic Cardiac Activity: 137 beats per minute Placental Location: Posterior with no sonographic abnormalitiesidentified. Distance from Placental Tip to Cervix: Not [...] is 30 weeks 4 days (+/- 15 daysgestation). Estimated Weight: 1566 grams, +/- 235 grams ( 3 lb 7 oz). Weight Percentile for gestational age: 6% IMPRESSION: 1. Single, live intrauterine gestation 32 weeks, 0 days by LMP. Today'sultrasound measurements correlate with a gestational age of 30 weeks 4days. Fetus is measuring in the 6th weight percentile for gestationalage. Interpreted by: Electronically signed by ARTURO ALVAREZ II, MD, PHD [id number] 08:55:00 PM [facility] us Ho Nupur DO IMG OB US PROCEDURES Final Resul t * (ABNORMAL) RECURRENT VAGINITIS (HTRX) (03/06/2025 11:23 AM EDT) Only the most recent of2 resultswithin the time period is included. ATOPOBIUM VAGINAE 28.768(A) 19.961 - 24.689 ppm 03/07/2025 7:45 AM EDT [facility] ATOPOBIUM VAGINAE Detected(A) 19.961 - 24.689 ppm 03/07/2025 7:45 AM EDT [facility] BVAB 2,3 (BACTERIAL VAGINOSIS ASSOCIATED BACTERIA 2, 3); MOBILUNCUS SPP 0.000 19.961 - 24.689 ppm 03/07/2025 7:45 AM EDT [facility] BVAB 2,3 (BACTERIAL VAGINOSIS ASSOCIATED BACTERIA 2, 3); MOBILUNCUS SPP Not Detected 19.961 - 24.689 ppm 03/07/2025 7:45 AM EDT [facility] TYLER ALBICANS, PARAPSILOSIS, TROPICALIS 0.000 19.961 - 30.770 ppm 03/07/2025 7:45 AM EDT [facility] TYLER ALBICANS, PARAPSILOSIS, TROPICALIS Not Detected 19.961 - 30.770 ppm 03/07/2025 7:45 AM EDT [facility] TYLER GLABRATA 0.000 23.000 - 32.138 ppm 03/07/2025 7:45 AM EDT [facility] TYLER GLABRATA Not Detected 23.000 - 32.138 ppm 03/07/2025 7:45 AM EDT [facility] TYLER KRUSEI 0.000 23.000 - 32.271 ppm 03/07/2025 7:45 AM EDT [facility] TYLER KRUSEI Not Detected 23.000 - 32.271 ppm 03/07/2025 7:45 AM EDT [facility] CHLAMYDIA TRACHOMATIS 0.000 23.000 - 31.467 ppm 03/07/2025 7:45 AM EDT [facility] CHLAMYDIA TRACHOMATIS Not Detected 23.000 - 31.467 ppm 03/07/2025 7:45 AM EDT [facility] GARDNERELLA VAGINALIS 0.000 19.961 - 24.689 ppm 03/07/2025 7:45 AM EDT [facility] GARDNERELLA VAGINALIS Not Detected 19.961 - 24.689 ppm 03/07/2025 7:45 AM EDT [facility] MEGASPHAERA (TYPES 1, 2) 0.000 19.961 - 24.689 ppm 03/07/2025 7:45 AM EDT [facility] MEGASPHAERA (TYPES 1, 2) Not Detected 19.961 - 24.689 ppm 03/07/2025 7:45 AM EDT [facility] NEISSERIA GONORRHOEAE 0.000 23.000 - 32.117 ppm 03/07/2025 7:45 AM EDT [facility] NEISSERIA GONORRHOEAE Not Detected 23.000 - 32.117 ppm 03/07/2025 7:45 AM EDT [facility] TRICHOMONAS VAGINALIS 0.000 23.000 - 32.119 ppm 03/07/2025 7:45 AM EDT [facility] TRICHOMONAS VAGINALIS Not Detected 23.000 - 32.119 ppm 03/07/2025 7:45 AM EDT [facility] MYCOPLASMA GENITALIUM 0.000 19.961 - 24.689 ppm 03/07/2025 7:45 AM EDT [facility] MYCOPLASMA GENITALIUM Not Detected 19.961 - 24.689 ppm 03/07/2025 7:45 AM EDT [facility] Tissue 03/06/2025 11:2 3 AM EDT 03/07/2025 2:11 AM EDT us Ho Nupur DO LAB BLOOD ORDERABLES Final Resul t [facility] [place] [address] * US OB limited 1+ fetuses (03/06/2025 10:34 AM EDT) Anatomical Region Laterality Modality Body Ultrasound 03/08/2025 6:50 PM EDT Narrative 03/08/2025 6:50 PM EDT EXAM: US OB LIMITED 1+ FETUSES HISTORY: [...] nose/lips. Interpreted by: Electronically signed by ARTURO ALVAREZ II, MD, PHD at 08-Mar-2025 06:48:44 PM [facility] Procedure Note Arturo Alvarez MD - 03/08/2025 EXAM: US OB LIMITED 1+ FETUSES HISTORY: Follow up anatomy. COMPARISON: None available. TECHNIQUE: Two-dimensional transabdominal grayscale ultrasound imaging ofthe pelvis was performed. FINDINGS: Gestation: Single Presentation: Cephalic Cardiac Activity: 143 beats per minute Placental Location: Posterior with no sonographic abnormalitiesidentified. Cervical canal: Not visualized Amniotic Fluid: Appears adequate ANATOMY Nose/Lips: Unremarkable IMPRESSION: 1. Single, live intrauterine gestation 30 weeks, 0 days by LMP. ROXANA is05/15/2025. 2. Unremarkable follow-up anatomy of the nose/lips. Interpreted by: Electronically signed by ARTURO ALVAREZ II, MD, PHD 06:48:44 PM [facility] us Nhung LAUREANO IMG OB US PROCEDURES Final Resul t * (ABNORMAL) TBH URINE MICROSCOPIC ONLY (02/13/2025 3:30 PM EDT) TBH WBC 2-5(A) NONE SEEN #/HPF TBH TBH RBC 10-20(A) 0 - 2 #/HPF TBH BACTERIA URINE SMALL(A) NONE SEEN #/HPF TBH MUCUS URINE SMALL(A) NONE SEEN TBH SQUAMOUS EPITHELIAL CELL URINE FEW(A) NONE/RARE #/LPF TBH CRYSTALS SEEN? Seen(A) None Seen #/HPF TBH AMORPHOUS SEDIMENT URINE MODERATE TBH CAST SEEN? NONE SEEN NONE SEEN #/LPF TBH URINE CULTURE INDICATED YES-LC TBH 02/13/2025 3:30 PM EDT 02/13/2025 3:55 PM EDT Narrative [facility] - 02/13/2025 4:14 PM EDT us Ho Espitia DO CLINIS[facility]NC Final Result [facility] * (ABNORMAL) TBH UA (CLEAN/CATCH) METAL WELDER/MICRO IF IND. (02/13/2025 3:30 PM EDT) COLOR URINE LT. YELLOW YELLOW TBH CLARITY URINE CLOUDY(A) CLEAR TBH SPECIFIC GRAVITY URINE 1.010 1.005 - 1.025 TBH PH URINE 7.0 5.0 - 9.0 TBH PROTEIN URINE NEGATIVE NEG/TRACE mg/dL TBH GLUCOSE URINE UA NEGATIVE NEGATIVE mg/dL TBH BILIRUBIN URINE NEGATIVE NEGATIVE TBH KETONES URINE NEGATIVE NEGATIVE mg/dL TBH BLOOD URINE LARGE(A) NEGATIVE TBH NITRITE URINE NEGATIVE NEGATIVE TBH UROBILINOGEN URINE 0.2 0.2 - 1.0 EU/dL TBH LEUKOCYTE ESTERASE URINE TRACE(A) NEGATIVE TBH URINE MICROSCOPIC INDICATED YES TBH 02/13/2025 3:30 PM EDT 02/13/2025 3:55 PM EDT Narrative [facility] - 02/13/2025 4:14 PM EDT us Ho Espitia DO CLINIS[facility]NC Final Result [facility] * CA ECHO DOPPLER COMPLETE (01/30/2025 8:11 PM EDT) Anatomical Region Laterality Modality Other 01/30/2025 8:11 PM EDT Narrative 01/30/2025 8:12 [place] [address] Cardiology Report Signed Patient: YIN MILLARD MR#: [id number] : 2005 Acct:[id number] Age/Sex: 19 / F ADM Date: 01/30/25 Loc: CARD Attending Dr: Ho Espitia D.O. Ordering Physician: Ho Espitia D.O. Date of Service: 01/30/25 Procedure(s): CA echo doppler complete Accession Number(s): [id number] cc: BUCKY COREA ; Ho Espitia D.O. Patient Name: YIN MILLARD MR#: [id number] : 2005 Exam Date: 01/30/2025 Ordering Doctor: DR HO ESPITIA . ECHOCARDIOGRAM REPORT PROCEDURE: CA ECHO [...] AMBROSIO Signed By: 01/30/252011 DD/ 10 TD/TT: Comic Illustrator: Procedure Note Radiology, Radiologist, MD - 01/30/2025 [place] [address] Cardiology Report Signed Patient: YIN MILLARD MMR#: [id number] : 2005Acct:[id number] Age/Sex: Date: 01/30/25 Loc: CARD Attending Dr: Ho Espitia D.O. Ordering Physician: Ho Espitia D.O. Date of Service: 01/30/25 Procedure(s): CA echo doppler complete Accession Number(s): [id number] cc: BUCKY COREA ; Ho Espitia D.O. Patient Name: YIN MILLARD MR#: [id number] : 2005 Exam Date: 01/30/2025 Ordering Doctor: DR HO ESPITIA . ECHOCARDIOGRAM REPORT PROCEDURE: CA ECHO DOPPLER COMPLETE INDICATIONS: Near syncope episodes, 24 weeks COMPARISON: None. DESCRIPTION: COMPLETE ECHOCARDIOGRAM Real-time transthoracic echocardiography with 2D, M-mode, spectral and color flow Dopplerperformed. QUALITY: Technical quality was good. LEFT VENTRICLE: Normal chamber size. Normal left ventricular wall thickness. Normal systolic function. LV EF: Normal left ventricular ejection fraction, (55-60%). DIASTOLIC: Normal diastolic function. ATRIAL SEPTUM: Visually appears intact. LEFT ATRIUM: Normal chamber size. RIGHT ATRIUM: Normal chamber size. RIGHT VENTRICLE: Normal chamber size. Normal right ventricularsystolic function. TRICUSPID VALVE: Normal mobility and thickness. No stenosis withtrivial regurgitation. Unable to assess right-sided pressures due to lack of measurable tricuspid regurgitation. MITRAL VALVE: Normal mobility and thickness. No evidence of mitralvalve stenosis. There is no mitral annular calcification. No mitralregurgitation. AORTIC VALVE: Normal trileaflet appearance. No visible sclerosis.Normal leaflet mobility. No evidence of aortic valve stenosis. No aortic regurgitation. AORTIC ROOT: Normal diameter and appearance. PULMONIC VALVE: Normal thickness and mobility. No stenosis. Trivial regurgitation. PERICARDIUM: No evidence of pericardial effusion. IVC: Collapses with inspirations. PLEURA: CONCLUSION: 1. Normal ventricular size and function. 2. No significant valvular dysfunction. 3. Unable to assess right-sided pressures due to lack of measurabletricuspid regurgitation. 4. No pericardial effusion. Adult Echocardiography [...] at 20:11 Dictated By: HERNANDO AMBROSIO Signed By:01/30/252011 DD/ 10 TD/TT: Comic Illustrator: us Ho Nupur DO [facility] Final Result * GLUCOSE 1 HOUR (01/30/2025 11:49 AM EDT) Pathologist [facility] GLUCOSE 1 HOUR 91 <130 mg/dL TBH 01/30/2025 11:4 9 AM EDT 01/30/2025 11:50 AM EDT Narrative [facility]INIS[facility] - 01/30/2025 12:24 PM EDT us Ho Nupur DO LAB BLOOD ORDERABLES Final Resul t [facility] * (ABNORMAL) ALL CBC WITH AUTO DIFF (01/30/2025 11:49 AM EDT) Only the most recent of2 resultswithin the time period is included. TBH WBC 10.2 4.0 - 11.0 10 3/uL TBH TBH RBC 4.17(L) 4.20 - 5.40 10 6/uL TBH TBH HGB 11.9(L) 12.0 - 16.0 g/dL TBH TBH HCT 35.4(L) 36.0 - 48.0 % TBH TBH MCV 84.9 81.0 - 99.0 fL TBH TBH MCH 28.5 26.7 - 34.0 pg TBH TBH MCHC 33.6 29.9 - 35.2 g/dL TBH TBH RDW 12.8 11.0 - 15.0 % TBH TBH PLT 319 150 - 450 10 3/uL TBH TBH MPV 9.2(L) 9.5 - 13.5 fL TBH NEUTROPHILS PERCENT AUTO 80.5(H) 43.0 - 75.0 % TBH LYMPHOCYTES PERCENT AUTO 12.7(L) 20.5 - 60.0 % TBH MONOCYTES PERCENT AUTO 5.2 1.7 - 12.0 % TBH TBH EO % 0.6(L) 0.9 - 7.0 % TBH BASOPHILS PERCENT AUTO 0.2 0.2 - 2.0 % TBH IMMATURE GRANULOCYTES PCT AUTO 0.8(H) 0.0 - 0.5 % TBH NEUTROPHILS ABSOLUTE AUTO 8.2(H) 1.4 - 6.5 10 3/uL TBH LYMPHOCYTES ABSOLUTE AUTO 1.3 1.2 - 3.8 10 3/uL TBH MONOCYTES ABSOLUTE AUTO 0.5 0.3 - 0.8 10 3/uL TBH TBH EO # 0.1 0.0 - 0.7 10 3/uL TBH BASOPHILS ABSOLUTE AUTO 0.0 0.0 - 0.1 10 3/uL TBH IMMATURE GRANULOCYTES ABS AUTO 0.08(H) 0.00 - 0.03 10 3/uL TBH 01/30/2025 11:4 9 AM EDT 01/30/2025 11:50 AM EDT Narrative [facility]IN[facility] - 01/30/2025 12:14 PM EDT Ho Espitia DO CLINISYNC Final Result [facility] * ALL THYROID STIM HORMONE (01/16/2025 1:57 PM EST) THYROID STIMULATING HORMONE 2.105 0.358 - 3.740 uIU/mL TBH 01/16/2025 1:57 PM EST 01/16/2025 1:58 PM EST Narrative [facility]IN[facility]NC - 01/16/2025 2:27 PM EST us Ho Gaffneyzio DO CLINISYNC Final Result [facility] from Last 3 Months Insurance [employer]
--- OUTSIDE RECORDS SUMMARY | 2025-04-15 19:31 | XMS_ITS | Encounter Summary ---
Author Organization [facility] Address [address] [facility] [place] [address] Care Team Providers Care French Binder Name Role Phone Unavailable Primary Care Provider Unavailabl e Encounter Details Date Type Department Care Team (Late st Contact Info) Description 04/08/2025 Clinisync Result Encounter [facility] External Department Unsolicited Ho Espitia, DO [address] [place], [place] [id number] Social History Tobacco Use Types Packs/Day Years [...] PM EDT Routine [facility] [address] [facility] [place] [address] Nhung Adamson PA [address] [place] [address] [phone] (work) documented as of this encounter Procedures Procedure Name Priority Date/Time Associated Diagnosis Comments US OB BPP W NON-STRESS 04/08/2025 4:40 PM EDT documented in this encounter Results * US OB BPP W NON-STRESS (04/08/2025 4:40 PM EDT) Anatomical Region Laterality Modality Other 04/08/2025 4:40 PM EDT Narrative 04/08/2025 4:43 PM EDT [address] [address] Ultrasound Report Signed Patient: SHILPI WARE MR#: [id number] : 2005 Acct:[id number] Age/Sex: 20 / F ADM Date: 04/08/25 Loc: US Attending Dr: Ho Espitia D.O. Ordering Physician: Ho Espitia D.O. Date of Service: 04/08/25 Procedure(s): US OB BPP w non-stress Accession Number(s): [id number] cc: BUCKY COREA ; Ho Espitia D.O. [address] [address] Patient Name: SHILPI WARE MRN: [id number] date: 2005 Sex: F Assigned Patient Location: [facility] Current Patient Location: Accession/Order Number: [id number] Exam Date: 04/08/2025 16:39 Report Date: 04/08/2025 [...] Soto M.D. 04/08/2025 4:40 PM Dictation Location: [facility] Electronically authenticated by: [id number] Y Date: 04/08/2025 16:40 Dictated By: Franck Soto D.O. Signed By: 04/08/25 1643 DD/ 1640 TD/TT: Assembler Filters: Procedure Note Radiology, Radiologist, - 04/08/2025 [place] [address] Ultrasound Report Signed Patient: SHILPI WARE MMR#: [id number] : 2005Acct:[id number] Age/Sex: 20 / FADM Date: 04/08/25 Loc: US Attending Dr: Ho Espitia D.O. Ordering Physician: Ho Espitia D.O. Date of Service: 04/08/25 Procedure(s): US OB BPP w non-stress Accession Number(s): [id number] cc: BUCKY COREA ; Ho Espitia D.O. [place] [address] Patient Name: SHILPI WARE MRN: [facility]:[id number] date: 2005 Sex: F Assigned Patient Location: [facility] Current Patient Location: Accession/Order Number: [id number] Exam Date: 04/08/2025 16:39 Report Date: 04/08/2025 [...] Soto M.D. 04/08/2025 4:40 PM Dictation Location: [facility] Electronically authenticated by: [id number] Y Date: 6:40 Dictated By: Franck Soto D.O. Signed By:04/08/25 1643 DD/ 1640 TD/TT: Assembler Filters: us Ho Espitia DO [facility] Final Result documented in this encounter Visit Diagnoses Not on filedocumented in this encounter
--- OUTSIDE RECORDS SUMMARY | 2025-04-15 19:32 | XMS_ITS | Patient Health Record ---
Author Organization [facility] Address [address] [place] [address] Support Name Relationship Address Phone CONCHITA Yeimi Emergency Contact [address] [place] [address] FREEMANSHAUNNA Guarantor Unknown [phone] Reason For Referral No Information Problems Problem Type SNOMED Code ICD Code Onset Dates Problem Status W/U Status Risk Notes Problem [id number] Social anxiety disorder (F40.10) Active confirmed Plan Of Treatment No Information Insurance Providers Payer Name Payer Address Payer Phone Subscriber Number Group Number Insured Name Patient Relationship to Insured Coverage Start Date Coverage End Date [employer] [address] [address] [place] [address] [id number] YIN MILLARD Self - patient is the insured 1 [facility] CHP-termed 22 [address] [place] [address] [id number] [facility] YIN MILLARD Self - patient is the insured 2 [employer] after [facility] CHP-termed 22 [address] [place] [address] [id number] YIN MILLARD Self - patient is the insured 2
--- OUTSIDE RECORDS SUMMARY | 2025-04-15 19:32 | XMS_ITS | Patient Health Record ---
Author Organization The [facility] in [place] Address [address] [place] [address] Care Team Providers Care Music Specialist Name Role Phone Maddie Corea Primary Care Provider Allergies No Known Allergies Results Component Value Reference Range Notes PREG QUANT HCG Reviewed date:06/13/2024 11:42:35 AM Interpretation: Performing Lab: Notes/Report: [facility] , HCG Quantitative 42 1,000-50,000 4-5 WEEKS 5-50 0.2-1 WEEK 100-5,000 2-3 WEEKS 50-500 1-2 WEEKS 15,000-200,000 6-8 WEEKS 10,000-100,000 2-3 MONTHS 10,000-100,000 5-6 WEEKS 500-10,000 3-4 WEEKS Performing Lab: see note ML - [facility] LB PREG QUANT HCG Reviewed date:06/26/2024 08:36:19 AM Interpretation: Performing Lab: Notes/Report: [facility] , HCG Quantitative <1 5-50 0.2-1 WEEK 50-500 1-2 WEEKS 1,000-50,000 4-5 WEEKS 500-10,000 3-4 WEEKS 10,000-100,000 5-6 WEEKS 15,000-200,000 6-8 WEEKS 10,000-100,000 2-3 MONTHS 100-5,000 2-3 WEEKS Performing Lab: see note ML - [facility] LB GLYCOHEMOGLOBIN A1C Reviewed date:07/25/2024 04:26:00 PM Interpretation: Performing Lab: Notes/Report: [facility] , Glycohemoglobin A1C 4.9 4.5-6.2 % ADA THERAPEUTIC TARGET < 7.0 ACTION SUGGESTED ADA RECOMMENDED LIMIT 4.0 - 6.0 > 7.0 Estimated Average Glucose 94 Performing Lab: see note ML - [facility] LB PREG QUANT HCG Reviewed date:07/25/2024 04:26:00 PM Interpretation: Performing Lab: Notes/Report: [facility] , HCG Quantitative <1 50-500 1-2 WEEKS 1,000-50,000 4-5 WEEKS 10,000-100,000 2-3 MONTHS 5-50 0.2-1 WEEK 100-5,000 2-3 WEEKS 10,000-100,000 5-6 WEEKS 15,000-200,000 6-8 WEEKS 500-10,000 3-4 WEEKS Performing Lab: see note ML - [facility] LB TSH Reviewed date:07/25/2024 04:26:00 PM Interpretation: Performing Lab: Notes/Report: [facility] , Thyroid Stimulating Hormone 1.597 0.358-3.740 uIU/mL Performing Lab: see note ML - [facility] LB Progesterone Reviewed date:07/26/2024 02:05:23 PM Interpretation: Performing Lab: Notes/Report: [facility] , Progesterone 0.2 . ng/mL Ovulation phase 0.1 - 12.0 Performed at: - [facility] Luteal phase 1.8 - 23.9 First trimester 11.0 - 44.3 Second trimester 25.4 - 83.3 Third trimester 58.7 - 214.0 Postmenopausal 0.0 - 0.1 Follicular phase 0.1 - 0.[address] [place] [id number] Aquatics Manager: Ney Hurley PhD, Phone: [phone] Performing Lab: see note - [facility] LB Luteinizing Hormone(LH) Reviewed date:07/26/2024 02:05:23 PM Interpretation: Performing Lab: Notes/Report: [facility] , Luteinizing Hormone(LH) 14.8 . mIU/mL Follicular phase 2.4 - 12.6 Ovulation phase 14.0 - 95.6 Luteal phase 1.0 - 11.4 Adult Female Range Postmenopausal 7.7 - 58.5 Performing Lab: see note [facility] LB FSH Reviewed date:07/26/2024 02:05:23 PM Interpretation: Performing Lab: Notes/Report: [facility] , FSH 5.2 . mIU/mL Adult Female Range Luteal phase 1.7 - 7.7 Postmenopausal 25.8 - 134.8 Ovulation phase 4.7 - 21.5 Follicular phase 3.5 - 12.5 Performing Lab: see note - [facility] LB Estradiol Reviewed date:07/26/2024 02:05:23 PM Interpretation: Performing Lab: Notes/Report: [facility] , Estradiol 115.0 . pg/mL [address], [place] [id number] Aquatics Manager: Ney Hurley PhD, Phone: [phone] Follicular phase 12.5 - 166.0 Postmenopausal <6.0 - 54.7 1st trimester 215.0 - >4300.0 Luteal phase 43.8 - 211.0 Adult Female Range Abiola ECLIA methodology Ovulation phase 85.8 - 498.0 Performed at: [facility] Performing Lab: see note [facility] DHEA-Sulfate Reviewed date:07/26/2024 02:05:23 PM Interpretation: Performing Lab: Notes/Report: [facility] , DHEA-Sulfate 404.0 110.0-431.7 ug/dL Performing Lab: see note [facility] PREG QUANT HCG Reviewed date:09/12/2024 04:00:18 PM Interpretation: Performing Lab: Notes/Report: [facility] , HCG Quantitative 3351 5-50 0.2-1 WEEK 1,000-50,000 4-5 WEEKS 500-10,000 3-4 WEEKS 10,000-100,000 2-3 MONTHS 100-5,000 2-3 WEEKS 15,000-200,000 6-8 WEEKS 50-500 1-2 WEEKS 10,000-100,000 5-6 WEEKS Performing Lab: see note - [facility] OB transvaginal Reviewed date:10/28/2024 12:22:27 PM Interpretation: Performing Lab: Notes/Report: Source Facility: [facility]-[address] [place] [address] [place] [address] Ultrasound Report Signed Patient: YIN MILLARD MR#: [id number] : 2005 Acct:[id number] Age/Sex: 19 / F ADM Date: 10/25/24 Loc: [facility] Attending Dr: Ho Espitia D.O. Ordering Physician: Ho Espitia D.O. Date of Service: 10/25/24 Procedure(s): US OB transvaginal Accession Number(s): [id number] cc: MADDIE COREA ; Ho Espitia D.O. The [address] [address] Patient Name: YIN MILLARD MRN: [facility]:[id number] date: 2005 Sex: F Assigned Patient Location: [facility] Current Patient Location: Accession/Order Number: [id number] Exam Date: 10/25/2024 10:10 Report Date: 10/26/2024 04:54 At the request of: HO ESPITIA Procedure: US OB transvaginal EXAMINATION: US OB transvaginal HISTORY: MISSED MENSES COMPARISON: No relevant comparison available. FINDINGS: GESTATIONAL SAC: Present and normal appearing. YOLK SAC: Present and normal appearing. POLE: Present and normal appearing. CARDIAC: Present. UTERUS: Normal size and appearance. OVARIES: Right: Not seen. Left: Normal. CERVIX: 4.7 cm in length and closed. CUL-DE-SAC: Normal. OTHER: None. AGE BY LMP: 10 weeks 3 days ROXANA BY LMP: 05/20/2025 AGE BY US CRL: 11 weeks 1 day ROXANA BY US CRL: 05/15/2025 US/US OB transvaginal IMPRESSION: 1. Single live intrauterine . Electronically authenticated by: ARTURO EDUARDO Date: 10/26/2024 04:54 Dictated By: Arturo Eduardo M.D. Signed By: 10/26/24455 DD/ 3 TD/TT: Examiner Of Currency: [place] [address] Ultrasound Report Signed Patient: YIN MILLARD MR#: [id number] : 2005 Acct:[id number] Age/Sex: 19 / F ADM Date: 10/25/24 Loc: [facility] Attending Dr: Ho Espitia D.O. Ordering Physician: Ho Espitia D.O. Date of Service: 10/25/24 Procedure(s): US OB transvaginal Accession Number(s): [id number] cc: MADDIE COREA ; Ho Espitia D.O. The [place] [id number] Patient Name: YIN MILLARD MRN: [facility]:[id number] date: 2005 Sex: F Assigned Patient Location: [facility] Current Patient Location: Accession/Order Numb er: [id number] Exam Date: 10:10 Report Date: 10/26/2024 04:54 At the request of: HO ESPITIA Procedure: US OB transvaginal EXAMINATION: US OB transvaginal HISTORY: MISSED MENSES COMPARISON: No relev ant comparison available. FINDINGS: GESTATIONAL SAC: Present and normal appearing. YOLK SAC: Present an d normal appearing. POLE: Present and normal appearing. CARDIAC: Present. UTERUS: Normal size and appearance. OVARIES: Right: Not seen. Left: Normal. CERVIX: 4.7 cm in length and closed. CUL-DE-SAC: Normal. OTHER: None. AGE BY LMP: 10 weeks 3 days ROXANA BY LMP: 05/20/2025 AGE BY US CRL: 11 we eks 1 day ROXANA BY US CRL: 05/15/2025 US/US OB transvaginal IMPRESSION: 1. Single live intrauterine . Electronically authenticated by: ARTURO EDUARDO Date: 10/26/2024 04:54 Dictated By: Arturo Eduardo M.D. Signed By: 10/26/24455 DD/ 3 TD/TT: Examiner Of Currency: CBC AUTO DIFF Reviewed date:10/29/2024 11:42:09 AM Interpretation: Performing Lab: Notes/Report: [facility] , White Blood Count 12.2 4.0-11.0 10 3/uL Red Blood Count 4.48 4.20-5.40 10 6/uL Hemoglobin 12.5 12.0-16.0 g/dL Hematocrit 36.7 36.0-48.0 % Mean Corpuscular Volume 81.9 81.0-99.0 fL Mean Corpuscular Hemoglobin 27.9 26.7-34.0 pg Mean Corpuscular HGB Conc 34.1 29.9-35.2 g/dL Red Cell Distribution Width 13.5 11.0-15.0 % Platelet Count 314 150-450 10 3/uL Mean Platelet Volume 9.2 9.5-13.5 fL Neutrophils Percent Auto 79.7 43.0-75.0 % Lymphocytes Percent Auto 14.0 20.5-60.0 % Monocytes Percent Auto 5.6 1.7-12.0 % Eosinophils Percent Auto 0.2 0.9-7.0 % Basophils Percent Auto 0.2 0.2-2.0 % Immature Granulocytes Pct Auto 0.3 0.0-0.5 % Neutrophils Absolute Auto 9.7 1.4-6.5 10 3/uL Lymphocytes Absolute Auto 1.7 1.2-3.8 10 3/uL Monocytes Absolute Auto 0.7 0.3-0.8 10 3/uL Eosinophils Absolute Auto 0.0 0.0-0.7 10 3/uL Basophils Absolute Auto 0.0 0.0-0.1 10 3/uL Immature Granulocytes Abs Auto 0.04 0.00-0.03 10 3/uL Performing Lab: see note ML - [facility] LB DRUG SCREEN RAPID (URINE) Reviewed date:10/29/2024 11:42:09 AM Interpretation: Performing Lab: Notes/Report: [facility] , Cannabinoid Screen Urine NEGATIVE NEGATIVE Phencyclidine Screen Urine NEGATIVE NEGATIVE Cocaine Screen Urine NEGATIVE NEGATIVE Methamphetamines Screen Urine NEGATIVE NEGATIVE Opiate Screen Urine NEGATIVE NEGATIVE Amphetamine Screen Urine NEGATIVE NEGATIVE Benzodiazepines Screen Urine NEGATIVE NEGATIVE Tricyclic Antidepressant Urine NEGATIVE NEGATIVE Methadone Screen Urine NEGATIVE NEGATIVE Barbiturates Screen Urine NEGATIVE NEGATIVE Oxycodone Screen Urine NEGATIVE NEGATIVE Buprenorphine Screen Urine NEGATIVE NEGATIVE TCA (Trycyclic Antidepressants): 300 ng/mL OXY (Oxycodone): 100 ng/mL DRUG CLASS TEST SYSTEM CUT-OFF CONCENTRATIONS ARE BUP (Buprenorphine): 10 ng/mL AMP (Amphetamine): 500 ng/mL mAMP (Methamphetamine): 500 ng/mL THC (Cannabinoids): 50 ng/mL OPI (Opiates): 100 ng/mL BZO (Benzodiazepines): 150 ng/mL ERNESTINA (Cocaine): 150 ng/mL PCP (Phencyclidine): 25 ng/mL FOLLOWS: BAR (Barbiturates): 200 ng/mL MTD (Methadone): 200 ng/mL Performing Lab: see note - [facility] LB GLYCOHEMOGLOBIN A1C Reviewed date:10/29/2024 11:42:09 AM Interpretation: Performing Lab: Notes/Report: [facility] , Glycohemoglobin A1C 5.1 4.5-6.2 % ACTION SUGGESTED ADA RECOMMENDED LIMIT 4.0 - 6.0 ADA THERAPEUTIC TARGET < 7.0 > 7.0 Estimated Average Glucose 100 Performing Lab: see note ML - [facility] LB Type and Screen Reviewed date:10/29/2024 11:42:09 AM Interpretation: Performing Lab: Notes/Report: [facility] , Blood Type O Positive Antibody Screen NEGATIVE Rapid Plasma Reagin, Quant Reviewed date:10/31/2024 09:52:05 AM Interpretation: Performing Lab: Notes/Report: [facility] , Rapid Plasma Reagin, Quant Non Reactive NonRea<1:1 titer Please Note: This test does not meet current guidelines for Aquatics Manager: Ney Hurley PhD, Phone: [phone] ([phone]). Performed at: [facility] Rapid Plasma Reagin (RPR) Test With Reflex to Quantitative RPR and Confirmatory Treponema pallidum Antibodies Treponema pallidum (Syphilis) Screening Ray (429473) or [address], [place] [id number] treated for syphilis infection. To screen for syphilis treponema-specific assay should be utilized, such as intended for following treatment response in patients being infection, a reflex cascade that includes both RPR and a screening and diagnosis of syphilis. This test is Performing Lab: see note [facility] HBsAg Screen Reviewed date:10/31/2024 09:52:05 AM Interpretation: Performing Lab: Notes/Report: [facility] , HBsAg Screen Negative Negative Performed at: [facility] Aquatics Manager: Ney Hurley PhD, Phone: [phone] [address], [place] [phone] Performing Lab: see note [facility] Urine Culture, Routine Reviewed date:10/31/2024 09:52:05 AM Interpretation: Performing Lab: Notes/Report: [facility] , Urine Culture, Routine See Below For Report Urine Culture, Routine Urine Culture, Routine Culture shows les s than 10,000 colony forming units of bacteria per Urine Culture, Routine Urine Culture, Routine milliliter of uri ne. This colony count is not generally considered Urine Culture, Routine Urine Culture, Routine to be clinically significant. Urine Culture, Routine Urine Culture, Routine Performed at: [facility] Urine Culture, Routine Urine Culture, Routine [address], [place] [id number] Urine Culture, Routine Urine Culture, Routine Aquatics Manager: Russ Hurley PhD, Phone: [phone] Urine Culture, Routine Performing Lab: see note - [facility] LB SEE REPORT - Hollow Tile Partition Erector Id information not found for OBX-specific boarding specialist legend AFP Tetra Reviewed date:11/29/2024 01:15:23 PM Interpretation: Performing Lab: Notes/Report: N [id number] N ULTRASOUND [id number] 1 11 N 1 118 N N N N N White/ [facility] , Results Report . Test Results: *Screen Negative* . Gest. Age on Collection Date 15.7 . WEEKS Gestat. Age Based On Ultrasound . 15:5 on 11/26/2024 [age] ROXANA [age] . [age] Race . Weight 118 . lbs Insulin Dep Diabetes No . Multiple Gestation No . AFP Value 58.0 . ng/mL AFP MoM 1.55 . hCG Value 56070 . mIU/mL hCG MoM 1.83 . uE3 Value 0.76 . ng/mL uE3 MoM 0.89 . CANDI Value 302.73 . pg/mL CANDI MoM 1.53 . OSBR Risk 1 IN 2393 . DSR (Second Trimester) 1 IN 5462 . DSR (By Age) 1 IN 1146 . T18 Risk Not increased . T18 (By Age) 1:4466 . Interpretation Comment . Recalculations are not recommended when gestational dating 60% of Trisomy 18 pregnancies. The [employer] of risks calculated are based on the gestational age and the offered to women age 35 and older. clinical information provided. This test can identify up to 80% of open neural tube defects. Closed neural tube Syndrome and Trisomy 18. The AFP MoM and patient specific by LMP and ultrasound are within 10 days. test. The combination of maternal age, AFP, hCG, uE3, and combination of maternal age, AFP, hCG and uE3 identifies defects and some open defects may not be detected by this CANDI identifies 75-80% of Down Syndrome. The Obstetricians and Gynecologists recommends amniocentesis be Interpretation: Screen Negative This result is screen negative for OSB, Down Comments: Comment . T18 Cutoff 1:100 T18- Trisomy 18 [address], [facility], [place] [phone] Erin Rojo, Ph.D., [facility] For further inquiries contact [facility] at [phone]. DSR Cutoff 1:270 DSR- Down Syndrome Risk determined by [facility]. It has not been cleared or approved For AFP Elevations IDD- Insulin Dep Diabetes Director References: Available Upon Request. Performed at: - [facility] RTP This test was developed and its performance characteristics Aquatics Manager: Anastasia Ibrahim [facility], Phone: [phone] Multiples Of Median Cutoffs Abbreviation Definitions by the Food and Drug Administration. Clifford 2.5 Black 2.8 OSBR- Open Spina Bifida IDD 2.0 Twins 4.5 Risk Performing Lab: see note - [facility] LB CBC AUTO DIFF Reviewed date:01/17/2025 01:51:08 PM Interpretation: Performing Lab: Notes/Report: [facility] , White Blood Count 12.0 4.0-11.0 10 3/uL Red Blood Count 4.16 4.20-5.40 10 6/uL Hemoglobin 11.9 12.0-16.0 g/dL Hematocrit 34.9 36.0-48.0 % Mean Corpuscular Volume 83.9 81.0-99.0 fL Mean Corpuscular Hemoglobin 28.6 26.7-34.0 pg Mean Corpuscular HGB Conc 34.1 29.9-35.2 g/dL Red Cell Distribution Width 13.0 11.0-15.0 % Platelet Count 316 150-450 10 3/uL Mean Platelet Volume 9.1 9.5-13.5 fL Neutrophils Percent Auto 80.2 43.0-75.0 % Lymphocytes Percent Auto 12.8 20.5-60.0 % Monocytes Percent Auto 5.8 1.7-12.0 % Eosinophils Percent Auto 0.3 0.9-7.0 % Basophils Percent Auto 0.3 0.2-2.0 % Immature Granulocytes Pct Auto 0.6 0.0-0.5 % Neutrophils Absolute Auto 9.6 1.4-6.5 10 3/uL Lymphocytes Absolute Auto 1.5 1.2-3.8 10 3/uL Monocytes Absolute Auto 0.7 0.3-0.8 10 3/uL Eosinophils Absolute Auto 0.0 0.0-0.7 10 3/uL Basophils Absolute Auto 0.0 0.0-0.1 10 3/uL Immature Granulocytes Abs Auto 0.07 0.00-0.03 10 3/uL Performing Lab: see note ML - [facility] LB TSH Reviewed date:01/17/2025 01:51:08 PM Interpretation: Performing Lab: Notes/Report: [facility] , Thyroid Stimulating Hormone 2.105 0.358-3.740 uIU/mL Performing Lab: see note - [facility] LB CBC AUTO DIFF Reviewed date:01/30/2025 01:26:23 PM Interpretation: Performing Lab: Notes/Report: [facility] , White Blood Count 10.2 4.0-11.0 10 3/uL Red Blood Count 4.17 4.20-5.40 10 6/uL Hemoglobin 11.9 12.0-16.0 g/dL Hematocrit 35.4 36.0-48.0 % Mean Corpuscular Volume 84.9 81.0-99.0 fL Mean Corpuscular Hemoglobin 28.5 26.7-34.0 pg Mean Corpuscular HGB Conc 33.6 29.9-35.2 g/dL Red Cell Distribution Width 12.8 11.0-15.0 % Platelet Count 319 150-450 10 3/uL Mean Platelet Volume 9.2 9.5-13.5 fL Neutrophils Percent Auto 80.5 43.0-75.0 % Lymphocytes Percent Auto 12.7 20.5-60.0 % Monocytes Percent Auto 5.2 1.7-12.0 % Eosinophils Percent Auto 0.6 0.9-7.0 % Basophils Percent Auto 0.2 0.2-2.0 % Immature Granulocytes Pct Auto 0.8 0.0-0.5 % Neutrophils Absolute Auto 8.2 1.4-6.5 10 3/uL Lymphocytes Absolute Auto 1.3 1.2-3.8 10 3/uL Monocytes Absolute Auto 0.5 0.3-0.8 10 3/uL Eosinophils Absolute Auto 0.1 0.0-0.7 10 3/uL Basophils Absolute Auto 0.0 0.0-0.1 10 3/uL Immature Granulocytes Abs Auto 0.08 0.00-0.03 10 3/uL Performing Lab: see note ML - [facility] CA echo doppler complete Reviewed date:01/31/2025 10:24:34 AM Interpretation: Performing Lab: Notes/Report: Source Facility: [place] [address] Cardiology Report Signed Patient: YIN MILLARD MR#: [id number] : 2005 Acct:[id number] Age/Sex: 19 / F ADM Date: 01/30/25 Loc: CARD Attending Dr: Ho Espitia D.O. Ordering Physician: Ho Espitia D.O. Date of Service: 01/30/25 Procedure(s): CA echo doppler complete Accession Number(s): [id number] cc: MADDIE COREA ; Ho Espitia D.O. Patient Name: YIN MILLARD MR#: [id number] : 2005 Exam Date: 01/30/2025 Ordering Doctor: [...] AMBROSIO Signed By: 01/30/252011 DD/ 10 TD/TT: Examiner Of Currency: [place] [address] Cardiology Report Signed Patient: YIN MILLARD MR#: [id number] : 2005 Acct:[id number] Age/Sex: 19 / F ADM Date: 01/30/25 Loc: CARD Attending Dr: Ho Espitia D.O. Ordering Physician: Ho Espitia D.O. Date of Service: 01/30/25 Procedure(s): CA ech o doppler complete Accession Number(s): [id number] cc: MADDIE COREA ; Ho Espitia D.O. Patient Name: YIN MILLARD MR#: [id number] : 2005 Exam Date: 01/30/2025 Ordering Doctor: DR HO ESPITIA . ECHOCARDIOGRAM REPORT PROCEDURE: CA ECHO DOPPLER COMPLETE INDICATIONS: Near syncope episodes, 24 weeks COMPARISON: None. DESCRIPTION: COMPLET E ECHOCARDIOGRAM Real-time transthoracic echocardiography wit h 2D, M-mode, spectral and color flow Doppler performed. QUALITY: Technical quality was good. LEFT VENTRICLE: Norm al chamber size. Normal left ventricular wall thickness. Normal systolic function. LV EF: Normal left ventricular ejection fraction, (55-60%). DIASTOLIC: Normal diastolic function. ATRIAL SEPTUM: Visua lly appears intact. LEFT ATRIUM: Normal chamber size. RIGHT ATRIUM: Normal chamber size. RIGHT VENTRICLE: Nor mal chamber size. Normal right ventricular systolic function. TRICUSPID VALVE: Nor mal mobility and thickness. No stenosis with trivial regurgitation. Unabl e to assess right-sided pressures due to lack of measurable tricuspid regurgitation. MITRAL VALVE: Normal mobility and thickness. No evidence of mitral valve stenosis. There is n o mitral annular calcification. No mitral regurgitation. AORTIC VALVE: Normal trileaflet appearance. No visible sclerosis. Normal leaflet mobility. No evidence of aortic valve stenosis. No aortic regurgitation. AORTIC ROOT: Normal diameter and appearance. PULMONIC VALVE: Norm al thickness and mobility. No stenosis. Trivial regurgitation. PERICARDIUM: No evidence of pericardial effusion. IVC: Collapses with inspirations. PLEURA: CONCLUSION: 1. Normal ventricula r size and function. 2. No significant valvular dysfunction. 3. Unable to assess right-sided pressures due to lack of measurable tricuspid regurgitation. 4. No pericardial effusion. Adult Echocardiograp hy Procedure Report Left Ventricle LVEDD (3.7 - 5.6 cm) : 4.12 cm LVESD (2.2 - 4.0 cm) : 2.76 cm LVIVS thickness (0.6 - 1.2 cm): 0.58 cm LVPW thickness (0.5 - 1.0 cm): 0.66 cm e': 0.25 m/s E - e': 3.69 LVOT Max Gradient: 2 .14 mm[Hg] LVOT Area (cm2): 0.7 3 m/s Peak Velocity (LVOT) : 0.73 m/s Mean Velocity (LVOT) : 0.50 m/s LVOT Diameter 2.25 cm Left [...] Area (VTI): 3.76 cm2, 3.76 cm2 Peak Velocity(Antegr ramu Flow): 0.91 m/s Peak Gradient(Antegr ramu Flow): 3.33 mm[Hg] Mean Velocity(Antegr ramu Flow): 0.57 m/s Mean Gradient(Antegr ramu Flow): 1.56 mm[Hg] Velocity Time Integr al: 17.65 cm Tricuspid Valve Pulmonic Valve Mean Gradient: 1.90 mm[Hg] Mean Velocity: 0.65 m/s Peak Velocity: 0.97 m/s, 0.82 m/s Peak Gradient: 2.66 mm[Hg], 3.75 mm[Hg] Right Atrium Right Atrium Systoli c Pressure: 28.55 ml, 28.55 ml Dictated by: Hernando Ambrosio M.D. on 01/30/2025 at 20:08 Approved by: Hernando Ambrosio M.D. on 01/30/2025 at 20:11 Dictated By: HERNANDO AMBROSIO Signed By: 01/30/252011 DD/ 10 TD/TT: Examiner Of Currency: UA (CLEAN or CATCH) ELECTRIC SWITCH TESTER or M ICRO IF IND. Reviewed date:02/14/2025 12:03:32 PM Interpretation: Performing Lab: Notes/Report: [facility] , Color Urine LT. YELLOW YELLOW Clarity Urine CLOUDY CLEAR Specific [place] Urine 1.010 1.005-1.025 pH Urine 7.0 5.0-9.0 Protein Urine NEGATIVE NEG/TRACE mg/dL Glucose Urine UA NEGATIVE NEGATIVE mg/dL Bilirubin Urine NEGATIVE NEGATIVE Ketones Urine NEGATIVE NEGATIVE mg/dL Blood Urine LARGE NEGATIVE Nitrite Urine NEGATIVE NEGATIVE Urobilinogen Urine 0.2 0.2-1.0 EU/dL Leukocyte Esterase Urine TRACE NEGATIVE Urine Microscopic Indicated YES Performing Lab: see note ML - [facility] LB URINE MICROSCOPIC ONLY Reviewed date:02/14/2025 12:03:19 PM Interpretation: Performing Lab: Notes/Report: [facility] , WBC Urine 2-5 NONE SEEN #/HPF RBC Urine 10-20 0-2 #/HPF Bacteria Urine SMALL NONE SEEN #/HPF Mucus Urine SMALL NONE SEEN Squamous Epithelial Cell Urine FEW NONE/RARE #/LPF Crystals Seen? Seen None Seen #/HPF Amorphous Sediment Urine MODERATE Cast Seen? NONE SEEN NONE SEEN #/LPF Urine Culture Indicated YES- Performing Lab: see note ML - [facility] LB Urine Culture, Routine Reviewed date:02/23/2025 09:47:56 PM Interpretation: Performing Lab: Notes/Report: [facility] , Urine Culture, Routine See Below For Report Urine Culture, Routine Urine Culture, Routine Culture shows les s than 10,000 colony forming units of bacteria per Urine Culture, Routine Urine Culture, Routine milliliter of uri ne. This colony count is not generally considered Urine Culture, Routine Urine Culture, Routine to be clinically significant. Urine Culture, Routine Urine Culture, Routine Performed at: [facility] Urine Culture, Routine Urine Culture, Routine [address], [place] [id number] Urine Culture, Routine Urine Culture, Routine Aquatics Manager: Russ Hurley PhD, Phone: [phone] Urine Culture, Routine Performing Lab: see note LC - [facility] LB SEE REPORT - Hollow Tile Partition Erector Id information not found for OBX-specific boarding specialist legend US OB BPP w non-stress Reviewed date:03/27/2025 01:55:49 PM Interpretation: Performing Lab: Notes/Report: Source Facility: [place] [address] Ultrasound Report Signed Patient: YIN MILLARD MR#: [id number] : 2005 Acct:[id number] Age/Sex: 20 / F ADM Date: 03/25/25 Loc: [facility] 250-[address]: Ho Espitia D.O. Ordering Physician: Ho Espitia D.O. Date of Service: 03/25/25 Procedure(s): US OB BPP w non-stress Accession Number(s): [id number] cc: MADDIE COREA ; Ho Espitia D.O. [place] [address] Patient Name: YIN MILLARD MRN: [id number] date: 2005 Sex: F Assigned Patient Location: [facility] Current Patient Location: [facility] Accession/Order Number: [id number] Exam Date: 03/25/2025 11:31 Report Date: 03/25/2025 11:32 At the request of: HO ESPITIA DO [...] Jr., D.O. 03/25/2025 11:32 AM Dictation Location: RADIO-PC-22 Electronically authenticated by: [id number] Y Date: 03/25/2025 11:32 Dictated By: Juan Ramon Lopez M.D. Signed By: 03/25/25 1135 DD/ 31 TD/TT: Examiner Of Currency: [place] [address] Ultrasound Report Signed Patient: YIN MILLARD MR#: [id number] : 2005 Acct:[id number] Age/Sex: 20 / F ADM Date: 03/25/25 Loc: [facility] 250-[address]: Ho Espitia D.O. Ordering Physician: Ho Espitia D.O. Date of Service: 03/25/25 Procedure(s): US OB BPP w non-stress Accession Number(s): [id number] cc: MADDIE COREA ; Ho Espitia D.O. [place] [address] Patient Name: YIN MILLARD MRN: [id number] date: 2005 Sex: F Assigned Patient Location: [facility] Current Patient Location: [facility] Accession/Order Numb er: [id number] Exam Date: 03/25/2025 11:31 Report Date: 03/25/2025 11:32 At the request of: HO ESPITIA DO Procedure: US OB fet al BPP w non-stress Biophysical profile. Reason for exam: [facility] ll for gestational age. COMPARISON: None. TECHNIQUE: Transabdominal imaging of the gravid uterus was obtained. FINDINGS: Biophysica l profile is 8 out of 8. JOSEPH is normal at 10.0 cm. heart rate 171 bpm. US/US OB BPP w non-stress IMPRESSION: BPP 8 ou t of 8. Impression dictated by: Brennan Felder Jr.OLee Ann 03/25/2025 11:32 AM Dictation Location: [place] [address] Electronically authenticated by: [id number] Y Date: 03/25/2025 11:32 Dictated By: Juan Ramon Lopez M.D. Signed By: 03/25/25 1135 DD/ 1132 TD/TT: Examiner Of Currency: US OB BPP w non-stress Reviewed date:04/08/2025 04:50:21 PM Interpretation: Performing Lab: Notes/Report: Source Facility: [place] [address] Ultrasound Report Signed Patient: YIN MILLARD MR#: [id number] : 2005 Acct:[id number] Age/Sex: 20 / F ADM Date: 04/08/25 Loc: US Attending Dr: Ho Espitia D.O. Ordering Physician: Ho Espitia D.O. Date of Service: 04/08/25 Procedure(s): US OB BPP w non-stress Accession Number(s): [id number] cc: MADDIE COREA ; Ho Espitia D.O. [place] [address] Patient Name: YIN MILLARD MRN: [id number] date: 2005 Sex: F Assigned Patient Location: [facility] Current Patient Location: Accession/Order Number: [id number] Exam Date: 04/08/2025 16:39 Report Date: 04/08/2025 [...] Soto M.D. 04/08/2025 4:40 PM Dictation Location: [place] [address] Electronically authenticated by: [id number] Y Date: 04/08/2025 16:40 Dictated By: Franck Soto D.O. Signed By: 04/08/25 1643 DD/ 1640 TD/TT: Examiner Of Currency: [place] [address] Ultrasound Report Signed Patient: YIN MILLARD MR#: [id number] : 2005 Acct:[id number] Age/Sex: 20 / F ADM Date: 04/08/25 Loc: US Attending Dr: Ho Espitia D.O. Ordering Physician: Ho Espitia D.O. Date of Service: 04/08/25 Procedure(s): US OB BPP w non-stress Accession Number(s): [id number] cc: MADDIE COREA ; Ho Espitia D.O. [place] [address] Patient Name: YIN MILLARD MRN: [id number] date: 2005 Sex: F Assigned Patient Location: [facility] Current Patient Location: Accession/Order Numb er: [id number] Exam Date: 04/08/2025 16:39 Report Date: 04/08/2025 16:40 At the request of: HO ESPITIA DO Procedure: US OB fet al BPP w non-stress Ultrasound biophysic al profile HISTORY: Small for gestational age. There is adequate fe jamie breathing movement, gross body movement, tone and amniotic fluid volume for total score of 8 out of 8. Amniotic fluid index is 12.9 cm within normal limits. heart rate 126 bpm. US/US OB BPP w non-stress IMPRESSION: Adequate biophysical profile. Impression dictated by: Franck Soto M.D. 04/08/2025 4:40 PM Dictation Location: [place] [address] Electronically authenticated by: [id number] Y Date: 04/08/2025 16:40 Dictated By: Franck Soto D.O. Signed By: 04/08/25 1643 DD/ 39 TD/TT: Examiner Of Currency: HCV Antibody RFX to Quant PC R Reviewed date:10/30/2024 10:05:33 AM Interpretation: Performing Lab: Notes/Report: [facility] , HCV Ab Non Reactive Non Reactive Interpretation: Comment . Not infected with HCV unless early or acute infection is suspected (which may be delayed in an immunocompromised individual), or other evidence exists to indicate HCV infection. Performing Lab: see note [facility] HIV Ab/p24 Ag with Reflex Reviewed date:10/30/2024 10:05:33 AM Interpretation: Performing Lab: Notes/Report: [facility] , HIV Ab/p24 Ag Screen Non Reactive Non Reactive Performed at: [facility] HIV Negative [address], [place] [address] Aquatics Manager: Ney Hurley PhD, Phone: [phone] HIV-1/HIV-2 antibodies and HIV-1 p24 antigen were NOT detected. There is no laboratory evidence of HIV infection. Performing Lab: see note [facility] RUBELLA AB IGG Reviewed date:10/30/2024 10:05:33 AM Interpretation: Performing Lab: Notes/Report: [facility] , Rubella Antibodies, IgG 1.57 Immune > 0.99 index Non-immune <0.90 Equivocal 0.90 - 0.99 Immune >0.99 Performing Lab: see note [facility] PREG QUANT HCG Reviewed date:09/16/2024 08:22:15 AM Interpretation: Performing Lab: Notes/Report: [facility] , HCG Quantitative 8309 10,000-100,000 2-3 MONTHS 10,000-100,000 5-6 WEEKS 500-10,000 3-4 WEEKS 1,000-50,000 4-5 WEEKS 50-500 1-2 WEEKS 15,000-200,000 6-8 WEEKS 5-50 0.2-1 WEEK 100-5,000 2-3 WEEKS Performing Lab: see note - [facility] LB Anti-Mullerian Hormone (AMH) Reviewed date:07/29/2024 10:45:14 AM Interpretation: Performing Lab: Notes/Report: [facility] , Anti-Mullerian Hormone (AMH) 2.08 . ng/mL Females at risk of ovarian hyperstimulation syndrome or may be 2 to 5 fold higher than age-appropriate reference with other tumor markers. Elevated AMH is not specific for AMH concentrations of >= 1.06 ng/mL is correlated with a to Niru et al. Fertility and Sterility. 2010: better response to ovarian stimulation, [facility] more 94:3649-3824. The current AMH test method correlates with polycystic ovarian syndrome (PCOS) may exhibit elevated Performed at: [facility] interference by heterophile antibodies in the samples.1 Females 20 - 25y: 1.23 - 11.51 determined by [facility]. It has not been cleared or approved retrievable oocytes and higher odds of live according [address], [place] [id number] Median 4.70 by the Food and Drug Administration. 1.Luis E Nunes Interferences in Immunoassays - still a threat. interval values. malignancy, and the assay should not be used exclusively to Aquatics Manager: Aubrey Tompkins MD, Phone: [phone] Clin. Chem. 2000; 46: 3315-9566. This test was developed and its performance characteristics For assays employing antibodies, the possibility exists for diagnose or exclude an AMH-secreting ovarian tumor. Reference Range: Granulosa cell tumors of the ovary may secrete AMH along the study method with a slope of 0.94. serum AMH concentrations. AMH levels from PCOS patients Performing Lab: see note [facility] DHEA, Serum Reviewed date:07/30/2024 08:53:24 AM Interpretation: Performing Lab: Notes/Report: [facility] , DHEA, Serum 526 31-701 ng/dL Aquatics Manager: Asif Smith MD, Phone: [phone] This test was developed and its performance characteristics [address], [place] [id number] Performed at: [facility] approved by the Food and Drug Administration. determined by [facility]. It has not been cleared or Performing Lab: see note [facility] FREE T4 Reviewed date:07/25/2024 04:26:00 PM Interpretation: Performing Lab: Notes/Report: [facility] , Free T4 0.96 0.76-1.46 ng/dL Performing Lab: see note - [facility] CBC AUTO DIFF Reviewed date:07/25/2024 04:26:00 PM Interpretation: Performing Lab: Notes/Report: [facility] , White Blood Count 6.0 4.0-11.0 10 3/uL Red Blood Count 4.57 4.20-5.40 10 6/uL Hemoglobin 12.1 12.0-16.0 g/dL Hematocrit 37.4 36.0-48.0 % Mean Corpuscular Volume 81.8 81.0-99.0 fL Mean Corpuscular Hemoglobin 26.5 26.7-34.0 pg Mean Corpuscular HGB Conc 32.4 29.9-35.2 g/dL Red Cell Distribution Width 13.0 11.0-15.0 % Platelet Count 318 150-450 10 3/uL Mean Platelet Volume 9.5 9.5-13.5 fL Neutrophils Percent Auto 69.6 43.0-75.0 % Lymphocytes Percent Auto 24.5 20.5-60.0 % Monocytes Percent Auto 4.5 1.7-12.0 % Eosinophils Percent Auto 0.8 0.9-7.0 % Basophils Percent Auto 0.3 0.2-2.0 % Immature Granulocytes Pct Auto 0.3 0.0-0.5 % Neutrophils Absolute Auto 4.1 1.4-6.5 10 3/uL Lymphocytes Absolute Auto 1.5 1.2-3.8 10 3/uL Monocytes Absolute Auto 0.3 0.3-0.8 10 3/uL Eosinophils Absolute Auto 0.1 0.0-0.7 10 3/uL Basophils Absolute Auto 0.0 0.0-0.1 10 3/uL Immature Granulocytes Abs Auto 0.02 0.00-0.03 10 3/uL Performing Lab: see note [facility] - [facility] PREG QUANT HCG Reviewed date:06/14/2024 02:21:43 PM Interpretation: Performing Lab: Notes/Report: [facility] Quantitative 18 15,000-200,000 6-8 WEEKS 1,000-50,000 4-5 WEEKS 500-10,000 3-4 WEEKS 10,000-100,000 2-3 MONTHS 100-5,000 2-3 WEEKS 50-500 1-2 WEEKS 10,000-100,000 5-6 WEEKS 5-50 0.2-1 WEEK Performing Lab: see note ML - [facility] PREG QUANT HCG Reviewed date:06/10/2024 02:46:32 PM Interpretation: Performing Lab: Notes/Report: [facility] Quantitative 69 50-500 1-2 WEEKS 10,000-100,000 5-6 WEEKS 10,000-100,000 2-3 MONTHS 500-10,000 3-4 WEEKS 5-50 0.2-1 WEEK 100-5,000 2-3 WEEKS 1,000-50,000 4-5 WEEKS 15,000-200,000 6-8 WEEKS Performing Lab: see note - [facility] Glucose 1 Hour Reviewed date:01/30/2025 01:26:23 PM Interpretation: Performing Lab: Notes/Report: [facility] , Glucose 1 Hour 91 <130 mg/dL Performing Lab: see note - [facility] Reason For Referral No Information Medications Medication SIG (Take, Route, Fr equency, Duration) Notes Start Date End Date Status 28-0.8 MG 1 tablet Orally Once a day Active Progesterone 200 MG as directed Vaginal Active Social History Tobacco Use: Social History Observation Description Date Details (start date - stop date) Never Smoker NA - NA Tobacco Use/Smoking Question Answer Notes Patient is a nonsmoker Alcohol Screen (Audit-C) Question Answer Notes Did you have a drink containing alcohol in the p ast year? No Points 0 Interpretation Negative AUDIT-C (Standard) Question Answer Notes Did you have a drink containing alcohol in the p ast year? No Points 0 Interpretation Negative Problems Problem Type SNOMED Code ICD Code Onset Dates Problem Status W/U Status Risk Notes Problem Depression (254955002) Depression (F32.9) Active confirmed Problem Seasonal allergic rhinitis (319032016) Seasonal allergic rhinitis (J30.2) Active confirmed Problem Intolerant of heat (R68.89) Active confirmed Vital Signs Blood pressure diastolic 60 mm Hg 10/16/2024 Height 64 in 10/16/2024 Blood pressure systolic 100 mm Hg 10/16/2024 Weight 117.6 lbs 10/16/2024 BMI 20.18 kg/m2 10/16/2024 Encounters Encounter Location Date Provider Diagnosis [facility] [address] [place] [address] 10/16/2024 Maddie Corea Seasonal allergic rhinitis J30.2 [facility] [address] [place] [address] 07/02/2024 Maddie Corea [facility] [address] [place] [address] 10/16/2024 Maddie Corea Assessments Encounter Date Diagnosis (ICD Code) Assessment Notes Treatment Notes Treatment Clinical Notes Section Notes 10/16/2024 Seasonal allergic rhinitis (ICD-10 - J30.2) check with Dr Espitia office regarding OTC Meds called patient with meds ok with Nupur for 9 weeks along fu if needed Plan Of Treatment Pending Test Test Name Order Date CMP (COMPLETE METABOLIC PANEL) 3 CBC WITH DIFF 05/19/2023 THYROID PANEL (T4/TSH/FREE T3) 3 Insurance Providers Payer Name Payer Address Payer Phone Subscriber Number Group Number Insured Name Patient Relationship to Insured Coverage Start Date Coverage End Date [employer] [address] [address] [place] [address] [id number] Yin Millard Self - patient is the insured [employer] [place] [employer] [address] [place] [address] [id number] Yin Millard Self - patient is the insured Medical (General) History Medical History History ICD Code Depression F32.9 Intolerant of heat R68.89 Seasonal allergic rhinitis J30.2 Surgical History Surgery Date(Month/Year) Eye Surgery Dental iud placed and removed
--- OUTSIDE RECORDS SUMMARY | 2025-04-15 19:32 | XMS_ITS | Encounter Summary ---
Author Organization [facility] Address [address] [place] [address] Care Team Providers Care Manager Protein Name Role Phone Unavailable Primary Care Provider Unavailabl e Encounter Details Date Type Department Care Team (Late st Contact Info) Description 04/04/2025 Abstract [facility] OB [address] [place] [address] Sofy Huntley MA Social History Tobacco Use Types Packs/Day Years [...] Description 04/22/2025 1:50 PM EDT Routine [facility] OB [address] [place] [address] Nhung Adamson PA [address] [place], [place] [id number] documented as of this encounter Visit Diagnoses Not on filedocumented in this encounter
--- OUTSIDE RECORDS SUMMARY | 2025-04-15 19:32 | XMS_ITS | Encounter Summary ---
Author Organization [facility] Address [address] [place] [address] Care Team Providers Care Director Of Elementary Education Name Role Phone Unavailable Primary Care Provider Unavailabl e Encounter Details Date Type Department Care Team (Late st Contact Info) Description 10/26/2024 Clinisync Result Encounter [facility] External Department Unsolicited Ho Espitia, DO [address] [place] [place], [place] [id number] Social History Tobacco Use Types Packs/Day Years [...] PM EDT Routine [facility] OB [address] [address] Nhung Adamson PA [address] [place] [address] [phone] (work) documented as of this encounter Procedures Procedure Name Priority Date/Time Associated Diagnosis Comments US OB TRANSVAGINAL 10/26/2024 4: 54 AM EST documented in this encounter Results * US OB TRANSVAGINAL (10/26/2024 4:54 AM EST) Anatomical Region Laterality Modality Other 10/26/2024 4:54 AM EST Narrative 10/26/2024 4:56 AM EST [address] [address] Ultrasound Report Signed Patient: SHILPI WARE MR#: [id number] : 2005 Acct:[id number] Age/Sex: 19 / F ADM Date: 10/25/24 Loc: [facility] Attending Dr: Ho Espitia D.O. Ordering Physician: Ho Espitia D.O. Date of Service: 10/25/24 Procedure(s): US OB transvaginal Accession Number(s): [id number] cc: BUCKY COREA ; Ho Espitia D.O. [address] [address] Patient Name: SHILPI WARE MRN: [id number] date: 2005 Sex: F Assigned Patient Location: [facility] Current Patient Location: Accession/Order Number: [id number] Exam Date: 10/25/2024 10:10 Report Date: 10/26/2024 [...] M.D. Signed By: 10/26/24455 DD/ 3 TD/TT: Map And Chart Mounter: Procedure Note Radiology, Radiologist, MD - 10/26/2024 [place] [address] Ultrasound Report Signed Patient: SHILPI WARE MMR#: [id number] : 2005Acct:[id number] Age/Sex: 19 / FADM Date: 10/25/24 Loc: [facility] Attending Dr: Ho Espitia D.O. Ordering Physician: Ho Espitia D.O. Date of Service: 10/25/24 Procedure(s): US OB transvaginal Accession Number(s): [id number] cc: BUCKY COREA ; Ho Espitia D.O. The [address] [address] Patient Name: SHILPI WARE MRN: [id number] date: 2005 Sex: F Assigned Patient Location: [facility] Current Patient Location: Accession/Order Number: [id number] Exam Date: 10/25/2024 10:10 Report Date: 10/26/2024 [...] 04:54 Dictated By: Arturo Eduardo M.D. Signed By:10/26/24 0456 DD/ 3 TD/TT: Map And Chart Mounter: us Ho Nupur DO [facility] Final Result documented in this encounter Visit Diagnoses Not on filedocumented in this encounter
--- OUTSIDE RECORDS SUMMARY | 2025-04-15 19:32 | XMS_ITS | Encounter Summary ---
Author Organization [facility] Address [address] [place] [address] Care Team Providers Care Shift Boss Name Role Phone Unavailable Primary Care Provider Unavailabl e Encounter Details Date Type Department Care Team (Late st Contact Info) Description 03/10/2025 Results Follow-Up [facility] BCP OB [address] [place] [address] Mary Wiggins LPN [address] [place] [address] Social History Tobacco Use Types Packs/Day Years [...] on file documented as of this encounter Miscellaneous Notes * Result Encounter Note - Mary Wiggins LPN - 03/10/2025 4:39 PM EDT Pt called back and was notified * Result Encounter Note - Mary JACKI Wiggins - 03/10/2025 4:37 PM EDT Attempted to call pt but she did not answer and mailbox was full. Will try again documented in this encounter Plan of Treatment Upcoming Encounters Date Type Department Care Team (Late st Contact Info) Description 04/22/2025 1:50 PM EDT Routine [facility] BCP OB [address] [place] [address] Nhung Adamson PA [address] [facility] [place] [address] documented as of this encounter Visit Diagnoses Not on filedocumented in this encounter
--- OUTSIDE RECORDS SUMMARY | 2025-04-15 19:32 | XMS_ITS | Encounter Summary ---
Author Organization [facility] Address [address] [facility] [place] [address] Care Team Providers Care Weapons Specialist Name Role Phone Unavailable Primary Care Provider Unavailabl e Encounter Details Date Type Department Care Team (Late st Contact Info) Description 01/13/2025 Abstract [facility] BCP OB [address] [place] [address] El Espitia, DO [address] [facility] [address]air[place], [facility] Social History [...] Routine [facility] BCP OB [address] [place] [address] Nhung Adamson PA [address] [place] [address] [place] [address] documented as of this encounter Visit Diagnoses Not on filedocumented in this encounter
--- OUTSIDE RECORDS SUMMARY | 2025-04-15 19:32 | XMS_ITS | Encounter Summary ---
Author Organization [facility] Address [address] [facility] [place] [address] Care Team Providers Care Director Of Home Health Services Name Role Phone Unavailable Primary Care Provider Unavailabl e Encounter Details Date Type Department Care Team (Late st Contact Info) Description 03/27/2025 Abstract [facility] BCP OB [address] [place] [address] El Espitia, DO [address] [facility] [address] Zaira [place], [facility] Social History Tobacco Use Types Packs/Day Years [...] Routine [facility] BCP OB [address] [place] [address] Nhung Adamson PA [address] [place] [address] [place] [address] documented as of this encounter Visit Diagnoses Not on filedocumented in this encounter
== END 2025-04-15 19:28 | disposition home or self-care (01) ==
LOC: LAB 19:27
PROVIDERS: PCP Nurse Practitioner Family; Visit Provider Obstetrics & Gynecology
DX: Z34.93 Encounter for supervision of normal pregnancy, unspecified, third trimester (principal); Z3A.35 35 weeks gestation of pregnancy
CPT/HCPCS: 87081

== ENCOUNTER 2025-04-18 09:01 | Outpatient (OUT) | payer OTHER, SELFPAY | END 2025-04-18 09:45 | disposition home or self-care (01) | LOC: FBCO 09:01 → FBC 09:07 | PROVIDERS: PCP Nurse Practitioner Family; Visit Provider Obstetrics & Gynecology | DX: O36.5930 Maternal care for other known or suspected poor fetal growth, third trimester, not applicable or unspecified (principal) | CPT/HCPCS: 59025 ==

== ENCOUNTER 2025-04-22 10:03 | Outpatient (OUT) | payer OTHER, SELFPAY ==
--- OUTSIDE RECORDS SUMMARY | 2025-04-22 10:23 | XMS_ITS | CCD ---
Author Organization [facility] Care Team Providers Care Access Nurse Name Role Phone Iker OLIVAS Primary Care [...] SANTANA Consulting Unavailable TRINITY Almendarez Attending Provider [phone] Unavailable Primary Care Provider UnavailIsabella Christensen Attending Unavailable Isabella Almendarez Admitting Unavailable NON STAFF Primary Care Unavailable Unavailable Primary Care Provider UnavailBAKARI Diaz Attending Unavailable EL ESPITIA Referring Unavailable EL ESPITIA Referring Unavailable LE ESPITIA Attending Unavailable EL ESPITIA Attending Unavailable NHUNG YBARRA Attending Unavailable EL ESPITIA Attending Unavailable EL ESPITIA Attending Unavailable EL ESPITIA Attending Unavailable NUPUREL JAMES Attending Unavailable NUPUR, EL Referring Unavailable NHUNG YBARRA Attending Unavailable NUPUR, EL Attending Unavailable NUPUR, EL R Referring Unavailable NUPUR, EL R Referring Unavailable NUPUR, EL R Referring Unavailable Allergies Allergy Classification Reported Allergen(s) Allergy Type Date of Onset Reaction(s) Facility (20 sources) Latex; Translations: [LATEX] Drug allergy 9 Eruption of skin (disorder), Unknown, Rash, Hives [facility] [place] (3 sources) contact metals 1 Drug allergy Eruption of skin (disorder) [facility] [place] Comment on above: family states pt dev elops rash to alumininum in deoderant, fake jewelry (possibly kp?), etc (8 sources) Coconut extract; Translations: [coconut] Drug Allergy 2 GI Disturbance [facility] (20 sources) Iron; Translations: [IRON] Drug Allergy 2 [facility] Repository (2 sources) contact metal agent Drug allergy (disorder) 4 Rash [facility] Repository (1 source) contact metals; Translations: [contact metals] Propensity to adverse reactions (disorder) [facility] Repository (20 sources) Coconut extract Drug Allergy 4 GI intolerance [facility] (20 sources) Other Propensity to adverse reactions 9 Unknown [facility] (1 source) contact metal agent Drug allergy (disorder) 4 [facility] Repository Medications Current Medications Medication Drug Class(es) [...] day(s), # 28 tab(s), Refills(s) 0, Pharmacy: [facility]/pharmacy #[id number], 161, cm, 03/16/22 14:08:00 [...] Start: 02-25-2022 take 1 capsule by mo [facility] every eight hours Cephalexin 500 MG 1 capsule Orally tid for 10 day(s) Feb, Active cetirizine hydrochloride 10 mg oral tablet (4 sources) Histamine-1 Receptor Antagonist Start: 01-11-2023 take 1 tablet by mouth every twenty-four hours Cetirizine HCl 10 MG 1 tablet Orally Once a day for 30 day(s) Dec, Active Start: 03-02-2022 take 1 tablet by [facility] once daily as needed cetirizine 10 mg Tab 10 mg = 1 tab(s), Oral, Daily, PRN for allergy symptoms, # 30 tab(s), Refills(s) 0, Pharmacy: [facility]/pharmacy #[id number], 164, cm, 03/02/22 14:37:00 [...] qPM, # 30 tab(s), Refills(s) 0, Pharmacy: [facility]/pharmacy #[id number], 165.5, cm, 02/22/22 13:27:00 EDT, Height/Length Dosing, 54, kg, 02/22/22 13:27:00 EDT, Weight Dosing Start Date: 02/22/22 Status: Ordered 350-cofb-bmmaz ac-dha (PRENA1 TRUE) 30 mg iron- 1.4 mg-300 mg combo pack (1 source) take 1 tablet by mouth in the morning 043-sfot-nmcvo ac-dha (PRENA1 TRUE) 30 mg iron- 1.4 mg-300 mg combo pack Indications: Take 1 tablet by mouth in the morning. Indications: . Active Progesterone 200 MG suppository (2 sources) Start: [...] Translations: [Irregular menstruation, unspecified] 10-25-2024 Chronic Other complications of (4 sources) Poor growth affecting management; Translations: [Maternal care for other known or suspected poor growth, first trimester, not applicable or unspecified] Onset: 03-27-2025 04-15-2025 Episodic Other connective tissue disease (3 sources) [...] 03-02-2022 Episodic Other and delivery including normal (16 sources) ; Translations: [Encounter for supervision of [...] Short gestation; low weight; and growth retardation (6 sources) Bzqmx-rlv-wsztv baby; Translations: [ small for gestational age, unspecified weight] Onset: [...] Test Name Value Interpretation Reference Range Facility OB BPP W NON-STRESS on 04-08-2025 [place] [address] Ultrasound Report Signed Patient: SHILPI MILLARD MR#: [id number] : 2005 Acct:[id number] Age/Sex: 20 / F ADM Date: 04/08/25 Loc: US Attending Dr: El Espitia D.O. Ordering Physician: El Espitia D.O. Date of Service: 04/08/25 Procedure(s): US OB BPP w non-stress Accession Number(s): [id number] cc: MADDIE COREA ; El Espitia D.O. [address] [address] Patient Name: SHILPI MILLARD MRN: [facility]:[id number] date: 2005 Sex: F Assigned Patient Location: [facility] Current Patient Location: Accession/Order Number: [id number] Exam Date: 04/08/2025 16:39 Report Date: 04/08/2025 16:40 At the request of: EL ESPITIA DO [...] Soto M.D. 04/08/2025 4:40 PM Dictation Location: [place] [address] Electronically authenticated by: [id number] Y Date: 04/08/2025 16:40 Dictated By: Franck Soto D.O. Signed By: 04/08/25 1643 DD/ 1640 TD/TT: Installation & Maintenance Executive: [facility] Radiology, Radiologist, MD - 04/08/2025 [place] [address] Ultrasound Report Signed Patient: SHILPI MILLARD MR#: [id number] : 2005 Acct:[id number] Age/Sex: 20 / F ADM Date: 04/08/25 Loc: US Attending Dr: El Espitia D.O. Ordering Physician: El Espitia D.O. Date of Service: 04/08/25 Procedure(s): US OB BPP w non-stress Accession Number(s): [id number] cc: MADDIE COREA ; El Espitia D.O. The [place] [id number] Patient Name: SHILPI MILLARD MRN: [facility]:[id number] date: 2005 Sex: F Assigned Patient Location: [facility] Current Patient Location: Accession/Order Number: [id number] Exam Date: 04/08/2025 16:39 Report Date: 04/08/2025 16:40 At the request of: EL ESPITIA DO [...] Soto M.D. 04/08/2025 4:40 PM Dictation Location: [place] [address] Electronically authenticated by: [id number] Y Date: 04/08/2025 16:40 Dictated By: Franck Soto D.O. Signed By: 04/08/25 1643 DD/ 1640 TD/TT: Installation & Maintenance Executive: [facility] Radiology Study observation (narrative) [facility] US OB BPP W NON-STRESS Ordered By: Radiologist Rad[facility]: Urinalysis macro (dipstick) panel (U)on 04-08-2025 Bilirubin, UA Negative Negative - 4(70) +++ mg/dL [facility] Blood, UA Negative Negative - 50 Rambo/mcL [facility] Clarity, UA Clear [facility] re Color, UA Yellow [facility] [employer] Glucose, UA Negative Negative - 1999(110) ++++ mg/dL [facility] Interpretation and review of laboratory results Normal [facility] Ketones, UA Negative Negative - 160(16) ++++ mg/dL [facility] Leukocytes, UA Negative Negative - 500+++ Charity/mcL [facility] Nitrite, UA Negative Negative - Positive [facility] pH, UA 5.5 5 - 9 [facility] [employer] Protein, UA Negative Negative - 1999(20) ++++ mg/dL [facility] Spec Grav, UA 1.02 1 - 1.03 [facility] Urobilinogen, UA 1.0 0.2 - 12 mg[facility]dL [facility] with or without consu lton 04-03-2025 NAME: FREEMAN ESQUEDA : 2005 SEX: F Accession Number: [id number] ORDERING PHYSICIAN: BAKARI HOWELL REFERRING PHYSICIAN: EL ESPITIA Coding Procedures 89926: Limited OB / JOSEPH, 1 or More Fetuses 79014: Doppler velocimetry, ; umbilical artery Indication IUGR-Poor growth History OB History 2. Para 0 [id number] Maternal Assessment Physical Exam Height 163 cm, 5 ft 4 in. Weight 66 kg, 145 lb. Initial weight 53 kg, 117 lb. BMI 24.89 kg/m . Initial BMI 20.08 kg/m . Weight gain 13 kg, 28 lb Method Transabdominal ultrasound examination Clifford . Number of fetuses: 1 Dating LMP on: 07/15/2024 GA by LMP 37 w + 3 d ROXANA by LMP: 04/21/2025 GA by prior assessment 34 w + 0 d ROXANA by prior assessment: 05/15/2025 Previous Ultrasound on: 10/25/2024 Assigned: based on stated ROXANA, selected on 03/27/2025 Assigned GA 34 w + 0 d Assigned ROXANA: 05/15/2025 General Evaluation Cardiac activity Present. FHR 130 bpm. Presentation: cephalic Placenta: Placental site: anterior, fundal Umbilical cord: Cord vessels: 3 vessel cord Amniotic fluid: Amount of AF: normal amount. MVP 6.5 cm Anatomy The following structures appear normal: Abdomen: Stomach. Bladder. Doppler Umbilical Artery: PI 1.00 79% Ebbing PS -62.74 cm/s TAmax -41.93 cm/s MD -22.66 cm/s S / D 2.91 71% Rafael Maternal Structures Uterus Visualized Cervix Suboptimal Approach - Transabdominal Right Ovary Not visualized Left Ovary Not visualized Cul de Sac Suboptimal Impression Single intrauterine with a working diagnosis of FGR. Umbilical artery Doppler S/D ratio in normal range. Amniotic fluid MVP measures 6.5 cm. Recommendations Please see [facility] recommendations from prior clinical and/or ultrasound report documentation. The patient is scheduled in 2 week(s) for growth and Doppler. Subsequent follow up or other follow up as clinically determined by primary OB provider unless otherwise specified by [facility]. Results forwarded to ordering provider so they can follow up with the patient as necessary. [facility] Bruno Leonard MD - 04/03/2025 NAME: FREEMAN ESQUEDA : 2005 SEX: F Accession Number: [id number] ORDERING PHYSICIAN: BAKARI HOWELL REFERRING PHYSICIAN: EL ESPITIA Coding Procedures 01157: Limited OB / JOSEPH, 1 or More Fetuses 95863: Doppler velocimetry, ; umbilical artery Indication IUGR-Poor growth History OB History 2. Para 0 [id number] Maternal Assessment Physical Exam Height 163 cm, 5 ft 4 in. Weight 66 kg, 145 lb. Initial weight 53 kg, 117 lb. BMI 24.89 kg/m . Initial BMI 20.08 kg/m . Weight gain 13 kg, 28 lb Method Transabdominal ultrasound examination Clifford . Number of fetuses: 1 Dating LMP on: 07/15/2024 GA by LMP 37 w + 3 d ROXANA by LMP: 04/21/2025 GA by prior assessment 34 w + 0 d ROXANA by prior assessment: 05/15/2025 Previous Ultrasound on: 10/25/2024 Assigned: based on stated ROXANA, selected on 03/27/2025 Assigned GA 34 w + 0 d Assigned ROXANA: 05/15/2025 General Evaluation Cardiac activity Present. FHR 130 bpm. Presentation: cephalic Placenta: Placental site: anterior, fundal Umbilical cord: Cord vessels: 3 vessel cord Amniotic fluid: Amount of AF: normal amount. MVP 6.5 cm Anatomy The following structures appear normal: Abdomen: Stomach. Bladder. Doppler Umbilical Artery: PI 1.00 79% Ebbing PS -62.74 cm/s TAmax -41.93 cm/s MD -22.66 cm/s S / D 2.91 71% Rafael Maternal Structures Uterus Visualized Cervix Suboptimal Approach - Transabdominal Right Ovary Not visualized Left Ovary Not visualized Cul de Sac Suboptimal Impression Single intrauterine with a working diagnosis of FGR. Umbilical artery Doppler S/D ratio in normal range. Amniotic fluid MVP measures 6.5 cm. Recommendations Please see [facility] recommendations from prior clinical and/or ultrasound report documentation. The patient is scheduled in 2 week(s) for growth and Doppler. Subsequent follow up or other follow up as clinically determined by primary OB provider unless otherwise specified by MFM. Results forwarded to ordering provider so they can follow up with the patient as necessary. [facility] Study observation (narrative) [facility] US MFM with or without consu ltOrdered By: Bruno Leonard on 04-03-2025 [facility] Work Phone: US OB BPP W NON-STRESS on 03-25-2025 [place] [address] Ultrasound Report Signed Patient: SHILPI MILLARD MR#: [id number] : 2005 Acct:[id number] Age/Sex: 20 / F ADM Date: 03/25/25 Loc: [place] [address]: El Espitia D.O. Ordering Physician: El Espitia D.O. Date of Service: 03/25/25 Procedure(s): US OB BPP w non-stress Accession Number(s): [id number] cc: MADDIE COREA ; El Espitia D.O. [address] [id number] Patient Name: SHILPI MILLARD MRN: [facility]:[id number] date: 2005 Sex: F Assigned Patient Location: [facility] Current Patient Location: [facility] Accession/Order Number: [id number] Exam Date: 03/25/2025 11:31 Report Date: 03/25/2025 [...] Jr., D.O. 03/25/2025 11:32 AM Dictation Location: [place] [address] Electronically authenticated by: [id number] Y Date: 03/25/2025 11:32 Dictated By: Juan Ramon Lopez M.D. Signed By: 03/25/25 1135 DD/ 1132 TD/TT: Installation & Maintenance Executive: [facility] Radiology, Radiologist, MD - 03/25/2025 [place] [address] Ultrasound Report Signed Patient: SHILPI MILLARD MR#: [id number] : 2005 Acct:[id number] Age/Sex: 20 / F ADM Date: 03/25/25 Loc: [facility] 250- Attending Dr: El Espitia D.O. Ordering Physician: El Espitia D.O. Date of Service: 03/25/25 Procedure(s): US OB BPP w non-stress Accession Number(s): [id number] cc: MADDIE COREA ; El Espitia D.O. The [place] [address] Patient Name: SHILPI MILLARD MRN: [facility]:[id number] date: 2005 Sex: F Assigned Patient Location: [facility] Current Patient Location: [facility] Accession/Order Number: [id number] Exam Date: 03/25/2025 11:31 Report Date: 03/25/2025 [...] Jr., D.O. 03/25/2025 11:32 AM Dictation Location: [place] [address] Electronically authenticated by: [id number] Y Date: 03/25/2025 11:32 Dictated By: Juan Ramon Lopez M.D. Signed By: 03/25/25 1135 DD/ 1132 TD/TT: Installation & Maintenance Executive: [facility] [employer] Radiology Study observation (narrative) [facility] US OB BPP W NON-STRESS Ordered By: Radiologist Radiology on 03-25-2025 [facility] Work Phone: US OB FOLLOW UP [...] II, MD, PHD at 23-Mar-2025 08:55:00 PM [facility] Normal Not Available Comment on above: [...] II, MD, PHD at 08-Mar-2025 06:48:44 PM [facility] Normal Not Available Comment on above: Order Comment: US OB INCOMPLETE ANATOMY Estimated Date of Delivery: 05/15/25 Gestational Age as of 02/20/2025: 28w0d Urinalysis macro (dipstick) panel (U)on 03-06-2025 Bilirubin, UA Negative Negative - 4(70) +++ mg/dL [facility] Blood, UA Negative Negative - 50 Rambo/mcL [facility] Clarity, UA Clear [facility] Color, UA Yellow [facility] Glucose, UA Negative Negative - 1999(110) ++++ mg/dL [facility] Interpretation and review of laboratory results Normal [facility] Ketones, UA Negative Negative - 160(16) ++++ mg/dL [facility] Leukocytes, UA Negative Negative - 500+++ Charity/mcL [facility] Nitrite, UA Negative Negative - Positive [facility] pH, UA 6.5 5 - 9 [facility] e Protein, UA Negative Negative - 1999(20) ++++ mg/dL [facility] Spec Grav, UA 1.02 1 - 1.03 [facility] Urobilinogen, UA 0.2 0.2 - 12 mg/dL [facility] Urinalysis macro (dipstick) panel (U)on 02-20-2025 Bilirubin, UA Negative Negative - 4(70) +++ mg/dL [facility] Blood, UA Negative Negative - 50 Rambo/mcL [facility] Clarity, UA Clear [facility] re Color, UA Yellow [facility] Glucose, UA Negative Negative - 1999(110) ++++ mg/dL [facility] Interpretation and review of laboratory results Normal [facility] Ketones, UA Negative Negative - 160(16) ++++ mg/dL [facility] Leukocytes, UA Trace Negative - 500+++ Charity/mcL [facility] Nitrite, UA Negative Negative - Positive [facility] pH, UA 7 5 - 9 [facility] Protein, UA Trace Negative - 1999(20) ++++ mg/dL [facility] Spec Grav, UA 1.02 1 - 1.03 [facility] Urobilinogen, UA 0.2 0.2 - 12 mg/dL [facility] UA (CLEAN/CATCH) RETAIL SEASONAL SPECIALIST/VAMSI RO IF IND.on 02-13-2025 BILIRUBIN URINE Negative NEGATIVE [facility] BLOOD URINE LARGE Abnormal NEGATIVE [facility] re Clarity (U) CLOUDY Abnormal CLEAR [facility] Color (U) LT. YELLOW YELLOW [facility] GLUCOSE URINE UA Negative NEGATIVE mg/dL [facility] Interpretation and review of laboratory results Abnormal [facility] Ketones Ql (U) Negative NEGATIVE mg/dL [facility] Leukocyte esterase Test strip Ql (U) TRACE Abnormal NEGATIVE [facility] NITRITE URINE Negative NEGATIVE [facility] Health care pH (U) 7.0 [pH] 5.0 - 9.0 [facility] PROTEIN URINE Negative NEG/TRACE mg/dL [facility] SPECIFIC GRAVITY URINE 1.010 1.005 - 1.025 [facility] URINE MICROSCOPIC INDICATED YES [facility] UROBILINOGEN URINE 0.2 EU/dL 0.2 - 1.0 EU/dL [facility] ALL CBC WITH AUTO DIFFon BASOPHILS ABSOLUTE AUTO 0 [facility] Basophils/100 WBC (Bld) 0.2 % 0.2 - 2.0 % [facility] Eosinophils/100 WBC (Bld) 0.6 % Low 0.9 - 7.0 % [facility] Erythrocyte distribution width (RBC) [Ratio] 12.8 % 11.0 - 15.0 % [facility] Hematocrit (Bld) [Volume fraction] 35.4 % Low 36.0 - 48.0 % [facility] Hemoglobin (Bld) [Mass/Vol] 11.9 g/dL Low 12.0 - 16.0 g/dL [facility] IMMATURE GRANULOCYTES ABS AUTO 0.08 High [facility] Immature granulocytes/100 WBC (Bld) 0.8 % High 0.0 - 0.5 % [facility] Interpretation and review of laboratory results Abnormal [facility] LYMPHOCYTES ABSOLUTE AUTO 1.3 [facility] Lymphocytes/100 WBC (Bld) 12.7 % Low 20.5 - 60.0 % [facility] MCH (RBC) [Entitic mass] 28.5 pg 26.7 - 34.0 pg [facility] MCHC (RBC) [Mass/Vol] 33.6 g/dL 29.9 - 35.2 g/dL [facility] MCV (RBC) [Entitic vol] 84.9 fL 81.0 - 99.0 fL [facility] MONOCYTES ABSOLUTE AUTO 0.5 [facility] Monocytes/100 WBC (Bld) 5.2 % 1.7 - 12.0 % [facility] NEUTROPHILS ABSOLUTE AUTO 8.2 High [facility] Neutrophils/100 WBC (Bld) 80.5 % High 43.0 [...] e CA ECHO DOPPLER COMPLETEon 0 01-30-[address] [address] Cardiology Report Signed Patient: SHILPI MILLARD MR#: [id number] : 2005 Acct:[id number] Age/Sex: 19 / F ADM Date: 01/30/25 Loc: CARD Attending Dr: El Espitia D.O. Ordering Physician: El Espitia D.O. Date of Service: 01/30/25 Procedure(s): CA echo doppler complete Accession Number(s): [id number] cc: MADDIE COREA ; El Espitia D.O. Patient Name: SHILPI MILLARD MR#: [id number] : 2005 Exam Date: 01/30/2025 Ordering Doctor: [...] Signed By: 01/30/252011 (more content not included)... [facility] Radiology, Radiologist, MD - 01/30/2025 [place] [address] Cardiology Report Signed Patient: SHILPI MILLARD MR#: [id number] : 2005 Acct:[id number] Age/Sex: 19 / F ADM Date: 01/30/25 Loc: CARD Attending Dr: El Espitia D.O. Ordering Physician: El Espitia D.O. Date of Service: 01/30/25 Procedure(s): CA echo doppler complete Accession Number(s): [id number] cc: MADDIE COREA ; El Espitia D.O. Patient Name: SHILPI MILLARD MR#: [id number] : 2005 Exam Date: 01/30/2025 Ordering Doctor: [...] AMBROSIO Signed By: 01/30/252011 DD/ 10 TD/TT: Installation & Maintenance Executive: [facility] Radiology Study observation (narrative) [facility] CA ECHO DOPPLER COMPLETEOrde red By: Radiologist Radiology on 01-30-2025 [facility]: Urinalysis macro (dipstick) panel (U)on 01-23-2025 Bilirubin, UA Negative Negative - 4(70) +++ mg/dL [facility] Blood, UA Positive Negative - 50 Rambo/mcL [facility] Comment on above: trace-intact Clarity, UA Clear [facility] re Color, UA Yellow [facility] Glucose, UA Negative Negative - 1999(110) ++++ mg/dL [facility] Interpretation and review of laboratory results Abnormal [facility] Ketones, UA Negative Negative - 160(16) ++++ mg/dL [facility] Leukocytes, UA Trace Negative - 500+++ Charity/mcL [facility] Nitrite, UA Negative Negative - Positive [facility] pH, UA 6 5 - 9 [facility] e Protein, UA Negative Negative - 1999(20) ++++ mg/dL [facility] Spec Grav, UA 1.025 1 - 1.03 [facility] Urobilinogen, UA 0.2 0.2 - 12 mg/dL [facility] ALL CBC WITH AUTO DIFFon BASOPHILS ABSOLUTE AUTO 0 [facility] Basophils/100 WBC (Bld) 0.3 % 0.2 - 2.0 % [facility] Eosinophils/100 WBC (Bld) 0.3 % Low 0.9 - 7.0 % [facility] Erythrocyte distribution width (RBC) [Ratio] 13 % 11.0 - 15.0 % [facility] Hematocrit (Bld) [Volume fraction] 34.9 % Low 36.0 - 48.0 % [facility] Hemoglobin (Bld) [Mass/Vol] 11.9 g/dL Low 12.0 - 16.0 g/dL [facility] IMMATURE GRANULOCYTES ABS AUTO 0.07 High [facility] Immature granulocytes/100 WBC (Bld) 0.6 % High 0.0 - 0.5 % [facility] Interpretation and review of laboratory results Abnormal [facility] LYMPHOCYTES ABSOLUTE AUTO 1.5 [facility] Lymphocytes/100 WBC (Bld) 12.8 % Low 20.5 - 60.0 % [facility] MCH (RBC) [Entitic mass] 28.6 pg 26.7 - 34.0 pg [facility] MCHC (RBC) [Mass/Vol] 34.1 g/dL 29.9 - 35.2 g/dL [facility] MCV (RBC) [Entitic vol] 83.9 fL 81.0 - 99.0 fL [facility] MONOCYTES ABSOLUTE AUTO 0.7 [facility] Monocytes/100 WBC (Bld) 5.8 % 1.7 - 12.0 % [facility] NEUTROPHILS ABSOLUTE AUTO 9.6 High [facility] Neutrophils/100 WBC (Bld) 80.2 % High 43.0 - 75.0 % [facility] Platelet mean volume (Bld) [Entitic vol] 9.1 fL Low 9.5 - 13.5 fL [facility] EO # 0 [facility] PLT 316 [facility] RBC 4.16 Low [facility] WBC 12 High [facility] No Panel Informationon 01-01 STAPHYLOCOCCUS EPIDERMIDIS, HAEMOLYTICUS, LUGDUNENSIS, SAPROPHYTICUS (URINA 0 [facility] STAPHYLOCOCCUS EPIDERMIDIS, HAEMOLYTICUS, LUGDUNENSIS, SAPROPHYTICUS (URINA Not detected [facility] URINARY TRACT INFECTION (HTR X)on 01-01-2025 ACINETOBACTER BAUMANII 0 [facility] ACINETOBACTER BAUMANII Not detected [facility] TYLER ALBICANS, PARAPSILOSIS, TROPICALIS 0 [facility] TYLER ALBICANS, PARAPSILOSIS, TROPICALIS Not detected [facility] TYLER GLABRATA 0 [facility] lt[facility] TYLER GLABRATA Not detected [facility] TYLER KRUSEI 0 [facility]care TYLER KRUSEI Not detected N[facility] lt[facility] CITROBACTER FREUNDII 0 [facility] CITROBACTER FREUNDII Not detected NO [facility] ENTEROBACTER AEROGENES, CLOACAE 0 [facility] re ENTEROBACTER AEROGENES, CLOACAE Not detected [facility] re ENTEROCOCCUS FAECALIS, FAECIUM 0 [facility] [facility] ENTEROCOCCUS FAECALIS, FAECIUM Not detected [facility] ESCHERICHIA COLI 0 [facility] ESCHERICHIA COLI Not detected [facility] KLEBSIELLA PNEUMONIAE, OXYTOCA 0 [facility] are KLEBSIELLA PNEUMONIAE, OXYTOCA Not detected [facility] are MORGANELLA MORGANII 0 [facility] MORGANELLA [...] STREPTOCOCCUS PYOGENES (GROUP A STREP) Not detected [facility] e US OB 14+ WEEKS ANATOMY [...] A short-term follow-up ultrasound is recommended. Electronically Signed:Mary y signed by ARTURO PUENTE II, MD, PHD at 01-Jan-2025 08:23:57 AM [facility] Normal Not Available Comment on above: Order Comment: US OB ANATOMY SINGLE W US OB CERVICAL LENGTH Estimated Date of Delivery: None noted. Gestational Age as of 11/26/2024: Unknown Urinalysis macro (dipstick) panel (U)on 11-26-2024 Bilirubin, UA Negative Negative - 4(70) +++ mg/dL [facility] Blood, UA Negative Negative - 50 Rambo/mcL [facility] Clarity, UA Clear [facility] re Color, UA Yellow [facility] e Glucose, UA Negative Negative - 1999(110) ++++ mg/dL [facility] Interpretation and review of laboratory results Normal [facility] Ketones, UA Negative Negative - 160(16) ++++ mg/dL [facility] Leukocytes, UA Negative Negative - 500+++ Charity/mcL [facility] Nitrite, UA Negative Negative - Positive [facility] pH, UA 6 5 - 9 [facility] e Protein, UA Negative Negative - 1999(20) ++++ mg/dL [facility] Spec Grav, UA 1.025 1 - 1.03 [facility] Urobilinogen, UA 0.2 0.2 - 12 mg/dL [facility] Health[facility] e ALL CBC WITH AUTO DIFFon BASOPHILS ABSOLUTE AUTO 0 [facility] Basophils/100 WBC (Bld) 0.2 % 0.2 - 2.0 % [facility] Eosinophils/100 WBC (Bld) 0.2 % Low 0.9 - 7.0 % [facility] Erythrocyte distribution width (RBC) [Ratio] 13.5 % 11.0 - 15.0 % [facility] Hematocrit (Bld) [Volume fraction] 36.7 % 36.0 - 48.0 % [facility] Hem[facility] (Bld) [Mass/Vol] 12.5 g/dL 12.0 - 16.0 g/dL [facility] IMMATURE GRANULOCYTES ABS AUTO 0.04 High [facility] Immature granulocytes/100 WBC (Bld) 0.3 % 0.0 - 0.5 % [facility] Interpretation and review of laboratory results Abnormal [facility] LYMPHOCYTES ABSOLUTE AUTO 1.7 [facility] Lymphocytes/100 WBC (Bld) 14 % Low 20.5 - 60.0 % [facility] MCH (RBC) [Entitic mass] 27.9 pg 26.7 - 34.0 pg [facility] MCHC (RBC) [Mass/Vol] 34.1 g/dL 29.9 - 35.2 g/dL [facility] MCV (RBC) [Entitic vol] 81.9 fL 81.0 - 99.0 fL [facility] MONOCYTES ABSOLUTE AUTO 0.7 [facility] Monocytes/100 WBC (Bld) 5.6 % 1.7 - 12.0 % [facility] NEUTROPHILS ABSOLUTE AUTO 9.7 High [facility] Neutrophils/100 WBC (Bld) 79.7 % High 43.0 - 75.0 % [facility] Platelet mean volume (Bld) [Entitic vol] 9.2 fL Low 9.5 - 13.5 fL [facility] EO # 0 [facility] TB PLT 314 [facility] TB RBC 4.48 [facility] TB WBC 12.2 High [facility] e [facility] HCG ( test) Ql (U)o n 10-25-2024 Preg Test, Ur Positive Negative [facility] Urinalysis macro (dipstick) panel (U)on 10-25-2024 Bilirubin, UA Negative Negative - 4(70) +++ mg/dL [facility] Blood, UA Negative Negative - 50 Rambo/mcL [facility] Clarity, UA Clear [facility] re Color, UA Yellow [facility] Glucose, UA Negative Negative - 1999(110) ++++ mg/dL [facility] Interpretation and review of laboratory results Normal [facility] Ketones, UA Negative Negative - 160(16) ++++ mg/dL [facility] Leukocytes, UA Negative Negative - 500+++ Charity/mcL [facility] Nitrite, UA Negative Negative - Positive [facility] pH, UA 6 5 - 9 [facility] Protein, UA Negative Negative - 1999(20) ++++ mg/dL [facility] Spec Grav, UA 1.025 1 - 1.03 [facility] Urobilinogen, UA 0.2 0.2 - 12 mg/dL [facility] TB PREG QUANT HCGon 09-14- 024 HCG QUANTITATIVE 8309 mIU/mL [facility] Comment on above: 5-50 0.2-1 WEEK 50-500 1-2 WEEKS 100-5,000 2-3 WEEKS 500-10,000 3-4 WEEKS 1,000-50,000 4-5 WEEKS 10,000-100,000 5-6 WEEKS 15,000-200,000 6-8 WEEKS 10,000-100,000 2-[facility] TBH PREG QUANT HCGon 09-12- 024 HCG QUANTITATIVE 3351 mIU/mL [facility] Comment on above: 5-50 0.2-1 WEEK 50-500 1-2 WEEKS 100-5,000 2-3 WEEKS 500-10,000 3-4 WEEKS 1,000-50,000 4-5 WEEKS 10,000-100,000 5-6 WEEKS 15,000-200,000 6-8 WEEKS 10,000-100,000 2-3 [facility] e ALL CBC WITH AUTO DIFFon BASOPHILS ABSOLUTE AUTO 0.0 [facility] Basophils/100 WBC (Bld) 0.3 % 0.2 - 2.0 % [facility] Eosinophils/100 WBC (Bld) 0.8 % Low 0.9 - 7.0 % [facility] Erythrocyte distribution width (RBC) [Ratio] 13.0 % 11.0 - 15.0 % [facility] Hematocrit (Bld) [Volume fraction] 37.4 % 36.0 - 48.0 % [facility] Hemoglobin (Bld) [Mass/Vol] 12.1 g/dL 12.0 - 16.0 g/dL [facility] IMMATURE GRANULOCYTES ABS AUTO 0.02 [facility] Immature granulocytes/100 WBC (Bld) 0.3 % 0.0 - 0.5 % [facility] Interpretation and review of laboratory results Abnormal [facility] LYMPHOCYTES ABSOLUTE AUTO 1.5 [facility] Lymphocytes/100 WBC (Bld) 24.5 % 20.5 - 60.0 % [facility] MCH (RBC) [Entitic mass] 26.5 pg Low 26.7 - 34.0 pg [facility] MCHC (RBC) [Mass/Vol] 32.4 g/dL 29.9 - 35.2 g/dL [facility] MCV (RBC) [Entitic vol] 81.8 fL 81.0 - 99.0 fL [facility] MONOCYTES ABSOLUTE AUTO 0.3 [facility] Monocytes/100 [...] bacterial skin contaminants 2 Days PERFORMED BY: [facility] [address] [place] [address] PATHOLOGIST MIX CHEMIST MADAN TRIVEDI M.D. Normal [facility] Comment on above: Performed By: #### C UU #### [facility] [place] [facility] [address] Physician Referralon [facility] Physician Referral [phone] [id number] #[id number] Normal [facility] ER URINE PROFILEon 3 Bilirubin Ql (U) Negative Normal NEGATIVE [facility] Comment on above: Performed By: #### E RUR, PREGU #### [facility] [address] [place] [address] Dr. Mikala Ramsay Clarity (U) CLEAR Normal CLEAR [facility] Comment on above: Performed By: #### E RUR, PREGU #### [facility] [address] [address] [address] Mikala Ramsay Color (U) LT. YELLOW Normal YELLOW [facility] Comment on above: Performed By: #### E RUR, PREGU #### [facility] [address] [place] [address] Dr. Mikala SPRAGUE A micrscopic examination will be performed if indicated. Normal [facility] Comment on above: Performed By: #### E RUR, PREGU #### [facility] [address] [place] [address] Dr. Mikala Ramsay Glucose Ql (U) Negative Normal NEGATIVE [facility] Comment on above: Performed By: #### E RUR, PREGU #### [facility] [address] [place] [address] Dr. Mikala Ramsay Hemoglobin Ql (U) Negative Normal NEGATIVE [facility] Comment on above: Performed By: #### E RUR, PREGU #### [facility] [address] [place] [address] Dr. Mikala Ramsay Ketones Ql (U) Negative Normal NEGATIVE [facility] Comment on above: Performed By: #### E RUR, PREGU #### [facility] [address] [place] [address] Dr. Mikala Ramsay LEUKOCYTES Negative Normal NEGATIVE [facility] Comment on above: Performed By: #### E RUR, PREGU #### [facility] [address] [place] [address] Dr. Mikala Ramsay Nitrite Ql (U) Negative Normal NEGATIVE [facility] Comment on above: Performed By: #### E RUR, PREGU #### [facility] [address] [place] [address] Dr. Mikala Ramsay pH (U) 8.0 [pH] Normal 5-9 [facility] Comment on above: Performed By: #### E RUR, PREGU #### [facility] [address] [place] [address] Dr. Mikala Ramsay SPEC GRAVITY 1.015 Normal 1.005-<=1.025 [facility] Comment on above: Performed By: #### E RUR, PREGU #### [facility] [address] [place] [address] Dr. Mikala Ramsay UA PROTEIN Negative Normal NEGATIVE/ TRACE [facility] Comment on above: Performed By: #### E RUR, PREGU #### [facility] [address] [place] [address] Dr. Mikala Ramsay UR MICRO IND NOT INDICATED Normal [facility] Comment on above: Performed By: #### E RUR, PREGU #### [facility] [address] [place], [place] [address] Dr. Mikala Ramsay Urobilinogen Qn (U) 0.2 {Jose'U}/dL Normal 0.2 - 1. 0 [facility] Comment on above: Performed By: #### E RUR, PREGU #### [facility] [address] [place], [place] [address] Dr. Mikala Ramsay URon 11-25-2022 , QUAL Negative Normal NEGATIVE [facility] Comment on above: Performed By: #### E RUR, PREGU #### [facility] [address] [place], [place] [address] Dr. Mikala Ramsay US PELVIS TRANSVAGon 023 [...] by: JONI MORALES Date: 2022-11-25 17:05 Normal [facility] XR KUB 1 VIEWon 11-25-2022 XR [...] by: DOMO AN Date: 2022-11-25 14:56 Normal [facility] CBC AUTO DIFFon 09-06-2022 BASO # 0.0 103/ul Normal 0.0-0.1 [facility] Comment on above: Performed By: #### C BC #### [facility] [address] [address] [address] Mikala Ramsay Basophils/100 WBC (Bld) 0.3 % Normal 0.2-2.0 [facility] Comment on above: Performed By: #### C BC #### [facility] [address] [place] [address] Dr. Mikala Ramsay EO # 0.0 103/ul Normal 0.0-0.7 [facility] Comment on above: Performed By: #### C BC #### [facility] [address] [place] [address] Dr. Mikala Ramsay Eosinophils/100 WBC (Bld) 0.6 % Critically low 0.9-7.0 [facility] Comment on above: Performed By: #### C BC #### [facility] [address] [place] [address] Dr. Mikala Ramsay Erythrocyte distribution width (RBC) [Ratio] 14.0 % Normal 11.0-15.0 [facility] Comment on above: Performed By: #### C BC #### [facility] [address] [place] [address] Dr. Mikala Ramsay Hematocrit (Bld) [Volume fraction] 38.7 % Normal 36.0-48.0 [facility] Comment on above: Performed By: #### C BC #### [facility] [address] [place] [address] Dr. Mikala Ramsay Hemoglobin (Bld) [Mass/Vol] 12.5 g/dL Normal 12.0-16.0 [facility] Comment on above: Performed By: #### C BC #### [facility] [address] [place] [address] Dr. Mikala Ramsay IG # 0.02 10e3/ul Normal 0.00-0.03 [facility] Comment on above: Performed By: #### C BC #### [facility] [address] [place] [address] Dr. Mikala Ramsay IG % 0.3 % Normal 0.0-0.5 [facility] Comment on above: Performed By: #### C BC #### [facility] [address] [place] [address] Dr. Mikala Ramsay LYMPH # 1.2 103/ul Normal 1.2-3.8 [facility] Comment on above: Performed By: #### C BC #### [facility] [address] [place] [address] Dr. Mikala Ramsay Lymphocytes/100 WBC (Bld) 17.4 % Critically low 20.5-60.0 [facility] Comment on above: Performed By: #### C BC #### [facility] [address] [place] [address] Dr. Mikala Ramsay MANUAL DIFF REQ NO Normal [facility] Comment on above: Performed By: #### C BC #### [facility] [address] [place] [address] Dr. Mikala Ramsay MCH (RBC) [Entitic mass] 26.0 pg Critically low 26.7-34.0 [facility] Comment on above: Performed By: #### C BC #### [facility] [address] [place] [address] Dr. Mikala Ramsay MCHC (RBC) [Mass/Vol] 32.3 g/dL Normal 29.9-35.2 [facility] Comment on above: Performed By: #### C BC #### [facility] [address] [place] [address] Dr. Mikala Ramsay MCV (RBC) [Entitic vol] 80.5 fL Critically low 81.0-99.0 [facility] Comment on above: Performed By: #### C BC #### [facility] [address] [place] [address] Dr. Mikala Ramsay MONO # 0.4 103/ul Normal 0.3-0.8 [facility] Comment on above: Performed By: #### C BC #### [facility] [address] [place] [address] Dr. Mikala Ramsay Monocytes/100 WBC (Bld) 5.9 % Normal 1.7-12.0 [facility] Comment on above: Performed By: #### C BC #### [facility] [address] [place] [address] Dr. Mikala Ramsay NEUT # 5.0 103/ul Normal 1.4-6.5 [facility] Comment on above: Performed By: #### C BC #### [facility] [address] [place] [address] Dr. Mikala Ramsay Neutrophils/100 WBC (Bld) 75.5 % Critically high 43.0-75.0 [facility] Comment on above: Performed By: #### C BC #### [facility] [address] [place] [address] Dr. Mikala Ramsay Platelet mean volume (Bld) [Entitic vol] 9.2 fL Critically low 9.5-13.5 [facility] Comment on above: Performed By: #### C BC #### [facility] [address] [place] [address] Dr. Mikala Ramsay PLT 286 103/ul Normal 150-450 [facility] Comment on above: Performed By: #### C BC #### [facility] [address] [place] [address] Dr. Mikala Ramsay RBC 4.81 106/ul Normal 4.20-5.40 [facility] Comment on above: Performed By: #### C BC #### [facility] [address] [place] [address] Dr. Mikala Ramsay WBC 6.7 103/ul Normal 4.0-11.0 [facility] Comment on above: Performed By: #### C BC #### [facility] [address] [place] [address] Dr. Mikala Ramsay PREG HCG QUALon 09-06-2022 , QUAL Negative Normal NEGATIVE [facility] Comment on above: Performed By: #### P REG #### [facility] [address] [place] [address] Dr. Mikala Ramsay PROF CHEM 8 (BAS METB)on Anion gap [Moles/Vol] 11.1 mmol/L Normal [facility] Comment on above: Performed By: #### B MP #### [facility] [address] [place] [address] Dr. Mikala Ramsay Calcium [Mass/Vol] 9.0 mg/dL Normal 8.5-10.1 [facility] Comment on above: Performed By: #### B MP #### [facility] [address] [place] [address] Dr. Mikala Ramsay Chloride [Moles/Vol] 106 mmol/L Normal 98-107 [facility] Comment on above: Performed By: #### B MP #### [facility] [address] [place] [address] Dr. Mikala Ramsay CO2 [Moles/Vol] 25.6 mmol/L Normal 21.0-32.0 [facility] Comment on above: Performed By: #### B MP #### [facility] [address] [place] [address] Dr. Mikala Ramsay Creatinine [Mass/Vol] 0.72 mg/dL Normal 0.55-1.02 [facility] Comment on above: Performed By: #### B MP #### [facility] [address] [place] [address] Dr. Mikala Ramsay EGFR-AF [place] >60 Normal >=60 [facility] Comment on above: Performed By: #### B MP #### [facility] [address] [place] [address] Dr. Mikala Ramsay EGFR-NON AF [place] >60 Normal >=60 [facility] Comment on above: Performed By: #### B MP #### [facility] [address] [place] [address] Dr. Mikala Ramsay Glucose [Mass/Vol] 84 mg/dL Normal 74-106 [facility] Comment on above: Performed By: #### B MP #### [facility] [address] [place] [address] Dr. Mikala Ramsay Potassium [Moles/Vol] 3.7 mmol/L Normal 3.5-5.1 [facility] Comment on above: Performed By: #### B MP #### [facility] [address] [place] [address] Dr. Mikala Ramsay Sodium [Moles/Vol] 139 mmol/L Normal 136-145 [facility] Comment on above: Performed By: #### B MP #### [facility] [address] [place] [address] Dr. Mikala Ramsay Urea nitrogen [Mass/Vol] 10.0 mg/dL Normal 6.4-19.3 [facility] Comment on above: Performed By: #### B MP #### [facility] [address] [place] [address] Dr. Mikala Ramsay Urea nitrogen/Creatinine [Mass ratio] 13.9 mg/mg Normal [facility] Comment on above: Performed By: #### B MP #### [facility] [address] [place] [address] Dr. Mikala Ramsay CBC AUTO DIFFon 08-16-2022 BASO # 0.0 103/ul Normal 0.0-0.1 [facility] Comment on above: Performed By: #### C BC #### [facility] [address] [place] [address] Dr. Mikala Ramsay Basophils/100 WBC (Bld) 0.6 % Normal 0.2-2.0 [facility] Comment on above: Performed By: #### C BC #### [facility] [address] [place] [address] Dr. Mikala Ramsay EO # 0.1 103/ul Normal 0.0-0.7 [facility] Comment on above: Performed By: #### C BC #### [facility] [address] [place] [address] Dr. Mikala Ramsay Eosinophils/100 WBC (Bld) 1.3 % Normal 0.9-7.0 [facility] Comment on above: Performed By: #### C BC #### [facility] [address] [place] [address] Dr. Mikala Ramsay Erythrocyte distribution width (RBC) [Ratio] 14.5 % Normal 11.0-15.0 [facility] Comment on above: Performed By: #### C BC #### [facility] [address] [place] [address] Dr. Mikala Ramsay Hematocrit (Bld) [Volume fraction] 37.6 % Normal 36.0-48.0 [facility] Comment on above: Performed By: #### C BC #### [facility] [address] [place] [address] Dr. Mikala Ramsay Hemoglobin (Bld) [Mass/Vol] 12.2 g/dL Normal 12.0-16.0 [facility] Comment on above: Performed By: #### C BC #### [facility] [address] [place] [address] Dr. Mikala Ramsay IG # 0.02 10e3/ul Normal 0.00-0.03 [facility] Comment on above: Performed By: #### C BC #### [facility] [address] [place] [address] Dr. Mikala Ramsay IG % 0.3 % Normal 0.0-0.5 [facility] Comment on above: Performed By: #### C BC #### [facility] [address] [place] [address] Dr. Mikala Ramsay LYMPH # 2.1 103/ul Normal 1.2-3.8 [facility] Comment on above: Performed By: #### C BC #### [facility] [address] [place] [address] Dr. Mikala Ramsay Lymphocytes/100 WBC (Bld) 33.4 % Normal 20.5-60.0 [facility] Comment on above: Performed By: #### C BC #### [facility] [address] [place] [address] Dr. Mikala Ramsay MANUAL DIFF REQ NO Normal [facility] Comment on above: Performed By: #### C BC #### [facility] [address] [place] [address] Dr. Mikala Ramsay MCH (RBC) [Entitic mass] 26.2 pg Critically low 26.7-34.0 [facility] Comment on above: Performed By: #### C BC #### [facility] [address] [address] [address] Mikala Ramsay MCHC (RBC) [Mass/Vol] 32.4 g/dL Normal 29.9-35.2 [facility] Comment on above: Performed By: #### C BC #### [facility] [address] [address] [address] Mikala Ramsay MCV (RBC) [Entitic vol] 80.7 fL Critically low 81.0-99.0 [facility] Comment on above: Performed By: #### C BC #### [facility] [address] [address] [address] Mikala Ramsay MONO # 0.4 103/ul Normal 0.3-0.8 [facility] Comment on above: Performed By: #### C BC #### [facility] [address] [place] [address] Dr. Mikala Ramsay Monocytes/100 WBC (Bld) 6.2 % Normal 1.7-12.0 [facility] Comment on above: Performed By: #### C BC #### [facility] [address] [place] [address] Dr. Mikala Ramsay NEUT # 3.7 103/ul Normal 1.4-6.5 [facility] Comment on above: Performed By: #### C BC #### [facility] [address] [place] [address] Dr. Mikala Ramsay Neutrophils/100 WBC (Bld) 58.2 % Normal 43.0-75.0 [facility] Comment on above: Performed By: #### C BC #### [facility] [address] [place] [address] Dr. Mikala Ramsay Platelet mean volume (Bld) [Entitic vol] 9.3 fL Critically low 9.5-13.5 [facility] Comment on above: Performed By: #### C BC #### [facility] [address] [place] [address] Dr. Mikala Ramsay PLT 310 103/ul Normal 150-450 [facility] Comment on above: Performed By: #### C BC #### [facility] [address] [address] [address] Mikala Ramsay RBC 4.66 106/ul Normal 4.20-5.40 [facility] Comment on above: Performed By: #### C BC #### [facility] [address] [address] [address] Mikala Ramsay WBC 6.3 103/ul Normal 4.0-11.0 [facility] Comment on above: Performed By: #### C BC #### [facility] [address] [address] [address] Mikala Ramsay XR elbow LT min 3V*on 2021 XR elbow LT min 3V* [facility] [employer] [facility] [employer] Other XR elbow LT min 3V* [facility] [employer] Other XR elbow LT min 3V* [address] [place] [address] [employer] Other XR elbow LT min 3V* [place] [address] [employer] Other XR elbow LT min 3V* XRay Report [facility] [employer] Other XR elbow LT min 3V* Signed [employer] Other XR elbow LT min 3V* Patient: Shilpi Millard MR#: [id number] [employer] Other XR elbow LT min 3V* : 2005 Acct:[id number] [employer] Other XR elbow LT min 3V* Age/Sex: 16 / F ADM Date: 01/10/22 [employer] Other XR elbow LT min 3V* Loc: XDUCLY Room: Type: [facility] CLI [employer] Other XR elbow LT min 3V* Attending Dr: Lynette Flores [employer] Other XR elbow LT min 3V* Ordering Provider: LYNETTE FLORES [employer] Other XR elbow LT min 3V* Date of Service: 01/10/22 [employer] Other XR elbow LT min 3V* XR/XR elbow LT min 3V*: Injury of left elbow, initial encounter [employer] Other XR elbow LT min 3V* Copies to: LYNETTE FLORES CEMENT SIDE LASTER-Ronald [employer] Other XR elbow LT min 3V* XR elbow LT min 3V* 01/10/2022 10:51 AM [employer] Other XR elbow LT min 3V* SIGNS AND SYMPTOMS: Injury of left elbow, left elbow pain [employer] Other XR elbow LT min 3V* PROTOCOL: Frontal, lateral, and oblique radiographs of the left elbow [employer] Other XR elbow LT min 3V* COMPARISON: None [employer] Other XR elbow LT min 3V* FINDINGS: [employer] Other XR elbow LT min 3V* There is no fracture or dislocation. No joint effusion. No soft tissue swelling. The joint spaces [employer] Other XR elbow LT min 3V* are preserved. N [facility] [employer] Other XR elbow LT min 3V* XR/XR elbow LT min 3V* [employer] Other XR elbow LT min 3V* IMPRESSION: [employer] Other XR elbow LT min 3V* No acute bony injury. [employer] Other XR elbow LT min 3V* Impression dictated by: Johnson Grijalva M.D.01/10/2022 11:26 AM [employer] Other XR elbow LT min 3V* Dictation Location: RADIO-PC-13 [employer] Other XR elbow LT min 3V* Transcribed By: PWS 01/10/22 1126 [employer] Other XR elbow LT min 3V* Dictated By: Johnson Grijalva II, MD 01/10/22 1125 [employer] Other XR elbow LT min 3V* Signed By: [employer] Other XR elbow LT min 3V* 01/10/22 1126 No rt [employer] Other [employer] 11-03-2021 S. pyogenes Org specific cx Ql (Throat) Negative [employer] Other Quick St[employer] Other Vital Signs Date Time Vital Sign Value Performing Clinician Facility 04-15-2025 13:42-0400 Body mass index (BMI) [Ratio] 26.16 kg/m2 [employer] Work Phone: [facility] 04-15-2025 13:42-0400 Body weight 69.13 kg [employer] Work Phone: [facility] 04-15-2025 13:42-0400 Diastolic blood pressure 68 mm[Hg] Iagnosiso DO Work Phone: [facility] 04-15-2025 13:42-0400 Systolic blood pressure 100 mm[Hg] El Nupur DO Work Phone: [facility] 04-08-2025 11:15-0400 Body mass index (BMI) [Ratio] 26.02 kg/m2 Nhung LAUREANO Work Phone: [facility] 04-08-2025 11:15-0400 Body weight 68.77 kg Nhung LAUREANO Work Phone: [facility] 04-08-2025 11:15-0400 Diastolic blood pressure 70 mm[Hg] Nhung LAUREANO Work Phone: [facility] 04-08-2025 11:15-0400 Systolic blood pressure 102 mm[Hg] Nhung LAUREANO Work Phone: [facility] 03-27-2025 14:21-0400 Body weight 66.13 kg Bakari Howell MD Work Phone: [facility] 03-27-2025 14:21-0400 Diastolic blood pressure 64 mm[Hg] Bakari Howell MD Work Phone: [facility] 03-27-2025 14:21-0400 Systolic blood pressure 98 mm[Hg] Bakari Howell MD Work Phone: [facility] 03-20-2025 10:25-0400 Body mass index (BMI) [Ratio] 25.03 kg/m2 El Nupur DO Work Phone: [facility] 03-20-2025 10:25-0400 Body weight 66.13 kg El Nupur DO Work Phone: [facility] 03-20-2025 10:25-0400 Diastolic blood pressure 74 mm[Hg] El Nupur DO Work Phone: [facility] 03-20-2025 10:25-0400 Systolic blood pressure 104 mm[Hg] El Nupur DO Work Phone: [facility] 03-06-2025 10:47-0400 Body mass index (BMI) [Ratio] 23.95 kg/m2 El Nupur DO Work Phone: [facility] 03-06-2025 10:47-0400 Body weight 63.28 kg El Nupur DO Work Phone: [facility] 03-06-2025 10:47-0400 Diastolic blood pressure 76 mm[Hg] El Nupur DO Work Phone: [facility] 03-06-2025 10:47-0400 Systolic blood pressure 102 mm[Hg] El Nupur DO Work Phone: [facility] 02-20-2025 10:58-0400 Body mass index (BMI) [Ratio] 23.34 kg/m2 Nhung Ybarra PA Work Phone: [facility] 02-20-2025 10:58-0400 Body weight 61.69 kg Nhung Ybarra PA Work Phone: [facility] 02-20-2025 10:58-0400 Diastolic blood pressure 68 mm[Hg] Nhung Ybarra PA Work Phone: [facility] 02-20-2025 10:58-0400 Systolic blood pressure 100 mm[Hg] Nhung Ybarra PA Work Phone: [facility] 01-23-2025 10:47-0500 Body mass index (BMI) [Ratio] 22.66 kg/m2 El Nupur DO Work Phone: [facility] 01-23-2025 10:47-0500 Body weight 59.88 kg El Nupur DO Work Phone: [facility] 01-23-2025 10:47-0500 Diastolic blood pressure 68 mm[Hg] El Nupur DO Work Phone: [facility] 01-23-2025 10:47-0500 Systolic blood pressure 120 mm[Hg] El Nupur DO Work Phone: [facility] 12-30-2024 14:44-0500 Body mass index (BMI) [Ratio] 21.63 kg/m2 El Nupur DO Work Phone: [facility] 12-30-2024 14:44-0500 Body weight 57.15 kg El Nupur DO Work Phone: [facility] 12-30-2024 14:44-0500 Diastolic blood pressure 66 mm[Hg] El Nupur DO Work Phone: [facility] 12-30-2024 14:44-0500 Systolic blood pressure 100 mm[Hg] El Nupur DO Work Phone: [facility] 10-25-2024 11:17-0500 Body mass index (BMI) [Ratio] 20.08 kg/m2 [facility] Nurse [facility] 10-25-2024 11:17-0500 Body weight 53.07 kg [facility] Nurse [facility] 10-25-2024 11:17-0500 Diastolic blood pressure 68 mm[Hg] [facility] Nurse [facility] 10-25-2024 11:17-0500 Systolic blood pressure 102 mm[Hg] [facility] Nurse [facility] 07-23-2024 09:34-0400 Body mass index (BMI) [Ratio] 20.08 kg/m2 El Nupur DO Work Phone: [facility] 07-23-2024 09:34-0400 Body weight 53.07 kg El Nupur DO Work Phone: [facility] 07-23-2024 09:34-0400 Diastolic blood pressure 68 mm[Hg] El Nupur DO Work Phone: [facility] 07-23-2024 09:34-0400 Systolic blood pressure 104 mm[Hg] El Nupur DO Work Phone: [facility] 04-18-2024 14:41-0400 Body height 162.56 cm JOURNALISM PROFESSORBetzy Almendarez Work Phone: [facility] 04-18-2024 14:41-0400 Body mass index (BMI) [Ratio] 20.8 kg/m2 TRINITY Almendarez Work Phone: [facility] 04-18-2024 14:41-0400 Body temperature 98.8 [degF] TRINITY Almendarez Work Phone: [facility] 04-18-2024 14:41-0400 Body weight 54.99 kg TRINITY Almendarez Work Phone: [facility] 04-18-2024 14:41-0400 Heart rate 67 /min TRINITY Almendarez Work Phone: [facility] 04-18-2024 14:41-0400 Respiratory rate 18 /min TRINITY Almendarez Work Phone: [facility] 04-18-2024 14:41-0400 SaO2% (BldA) [Mass fraction] 98 % JOURNALISM PROFESSOR Isabella Almendarez Work Phone: [facility] 01-11-2023 17:10-0500 Body height 163.83 cm Lynette Flores Other [employer] Other 01-11-2023 17:10-0500 Body mass index (BMI) [Ratio] 19.94 kg/m2 Lynette Flores Other [employer] Other 01-11-2023 17:10-0500 Body temperature 98.2 [degF] Lynette Batesault Other [employer] Other 01-11-2023 17:10-0500 Body weight 53.52 kg Lynette Flores Other [employer] Other 01-11-2023 17:10-0500 Respiratory rate 18 /min Lynette Flores Other [employer] Other 01-11-2023 17:10-0500 SaO2% (BldA) [Mass fraction] 99 % Lynette Batesault Other [employer] Other 12-13-2022 16:30-0500 Body height 162.56 cm Lanny Nieves Other [employer] Other 12-13-2022 16:30-0500 Body mass index (BMI) [Ratio] 20.25 kg/m2 Lanny Nieves Other [employer] Other 12-13-2022 16:30-0500 Body temperature 97.2 [degF] Lanny Nieves Other [employer] Other 12-13-2022 16:30-0500 Body weight 53.52 kg Lanny Ezequiel Other [employer] Other 12-13-2022 16:30-0500 Respiratory rate 18 /min Lanny Ezequiel Other [employer] Other 12-13-2022 16:30-0500 SaO2% (BldA) [Mass fraction] 99 % Lanny Nieves Other [employer] Other 07-04-2022 17:25-0400 Body height 163.83 cm Lynette Batesault Other [employer] Other 07-04-2022 17:25-0400 Body mass index (BMI) [Ratio] 19.77 kg/m2 Lynette Conrado Other [employer] Other 07-04-2022 17:25-0400 Body temperature 97.8 [degF] Lynette Conrado Other [employer] Other 07-04-2022 17:25-0400 Body weight 53.07 kg Lynette Conrado Other [employer] Other 07-04-2022 17:25-0400 Diastolic blood pressure 65 mm[Hg] Lynette Conrado Other [employer] Other 07-04-2022 17:25-0400 Respiratory rate 18 /min Lynette Conrado Other [employer] Other 07-04-2022 17:25-0400 SaO2% (BldA) [Mass fraction] 100 % Lynette Flores Other [employer] [facility] [employer] Other 07-04-2022 17:25-0400 Systolic blood pressure 110 mm[Hg] Lynette Flores Other [facility] [employer] Other 03-16-2022 14:01-0400 Blood Pressure Location Iker WNEK [facility] [place] 03-16-2022 14:01-0400 Body temperature 97.7 [degF] Iker WNEK [facility] [place] 03-16-2022 14:01-0400 Diastolic blood pressure 68 mm[Hg] Iker WNEK [facility] [place] 03-16-2022 14:01-0400 Heart rate 76 /min Iker WNEK [facility] [place] 03-16-2022 14:01-0400 Respiratory rate 18 /min Iker WNEK [facility] [place] 03-16-2022 14:01-0400 SaO2% (BldA) [Mass fraction] 98 % Iker WNEK [facility] [place] 03-16-2022 14:01-0400 Systolic blood pressure 120 mm[Hg] Iker WNEK [facility] [place] 03-02-2022 14:34-0400 Blood Pressure Location Iker WNEK [facility] [place] 03-02-2022 14:34-0400 Body temperature 98.24 [degF] Iker WNEK [facility] [place] 03-02-2022 14:34-0400 Diastolic blood pressure 60 mm[Hg] Iker WNEK [facility] [place] 03-02-2022 14:34-0400 Heart rate 76 /min Iker WNEK [facility] [place] 03-02-2022 14:34-0400 Respiratory rate 18 /min Iker WNEK [facility] [place] 03-02-2022 14:34-0400 SaO2% (BldA) [Mass fraction] 98 % Iker WNEK [facility] [place] 03-02-2022 14:34-0400 Systolic blood pressure 118 mm[Hg] Iker WNEK [facility] [place] 02-25-2022 10:15-0400 Body height 163.83 cm Maddie Dickson Other [employer] Other 02-25-2022 10:15-0400 Body mass index (BMI) [Ratio] 19.26 kg/m2 Maddie Dickson Other [employer] Other 02-25-2022 10:15-0400 Body temperature 97.1 [degF] Maddie Dickson Other [employer] Other 04-08-2022 10:15-0400 Body weight 51.71 kg Maddie Dickson Other [employer] Other 02-25-2022 10:15-0400 SaO2% (BldA) [Mass fraction] 99 % Maddie Dickson Other [facility] [employer] Other 02-22-2022 13:23-0400 Blood Pressure Location Marli Olds [facility] [place] 02-22-2022 13:23-0400 Body temperature 97.34 [degF] Marli Wray [facility] [place] 02-22-2022 13:23-0400 Diastolic blood pressure 70 mm[Hg] Marli Wray [facility] [place] 02-22-2022 13:23-0400 Heart rate 80 /min Marli Wray [facility] [place] 02-22-2022 13:23-0400 Respiratory rate 16 /min Marli Wray [facility] [place] 02-22-2022 13:23-0400 SaO2% (BldA) [Mass fraction] 98 % Marli Wray [facility] [place] 02-22-2022 13:23-0400 Systolic blood pressure 118 mm[Hg] Marli Wray [facility] [place] 01-10-2022 11:30-0500 Body height 162.56 cm Lynette Flores Other [employer] Other 01-10-2022 11:30-0500 Body mass index (BMI) [Ratio] 21.45 kg/m2 Lynette Flores Other [employer] Other 01-10-2022 11:30-0500 Body temperature 96.9 [degF] Lynette Flores Other [employer] Other 01-10-2022 11:30-0500 Body weight 56.7 kg Lynette Flores Other [employer] Other 01-10-2022 11:30-0500 Diastolic blood pressure 69 mm[Hg] Lynette Flores Other [employer] Other 01-10-2022 11:30-0500 Respiratory rate 18 /min Lynette Flores Other [employer] Other 01-10-2022 11:30-0500 SaO2% (BldA) [Mass fraction] 99 % Lynette Flores Other [employer] Other 01-10-2022 11:30-0500 Systolic blood pressure 121 mm[Hg] Lynette Flores Other [employer] Other 11-03-2021 17:45-0500 Body height 162.56 cm Maddie Dickson Other [employer] Other 11-03-2021 17:45-0500 Body mass index (BMI) [Ratio] 21.8 kg/m2 Maddie Dickson Other [employer] Other 11-03-2021 17:45-0500 Body temperature 97.8 [degF] Maddie Dickson Other [employer] Other 11-03-2021 17:45-0500 Body weight 57.61 kg Maddie Dickson Other [employer] Other 11-03-2021 17:45-0500 Respiratory rate 18 /min Maddie Dickson Other [employer] Other 11-03-2021 17:45-0500 SaO2% (BldA) [Mass fraction] 99 % Maddie Dickson Other [employer] Other Encounters Encounter Date Encounter Type Care Provider Facility Start: 04-17-2025 End: 04-17-2025 ambulatory EL R [facility] Start: 04-15-2025 End: 04-15-2025 Bamboo flowsheet El Nupur DO Work Phone: [facility] Start: 04-15-2025 End: 04-15-2025 Bamboo flowsheet El Nupur DO Work Phone: [facility] Start: 04-15-2025 End: 04-15-2025 flow sheet El Nupur DO Work Phone: [facility] Comment on above: Third trimester preg lucy; Poor growth affecting management of mother in first trimester, single or unspecified fetus Start: 04-15-2025 End: 04-15-2025 ambulatory EL NUPUR Not Available Start: 04-08-2025 End: 04-08-2025 Bamboo flowsheet Nhung LAUREANO Work Phone: [facility] Start: 04-08-2025 End: 04-08-2025 Bamboo flowsheet Nhung LAUREANO Work Phone: [facility] Start: 04-08-2025 End: 04-08-2025 Clinisync Result Encounter El Nupur DO Work Phone: [facility] Unsolicited Start: 04-08-2025 End: 04-08-2025 flow sheet Nhung LAUREANO Work Phone: [facility] Comment on above: Third trimester preg lucy; 34 weeks gestation of Start: 04-08-2025 End: 04-08-2025 ambulatory NHUNG YBARRA Not Available Start: 04-03-2025 ambulatory [facility] Start: 03-27-2025 End: 03-27-2025 Office consultation new/estab patient 60 min Bakari Howell MD Work Phone: [facility] Comment on above: SGA (small for gesta tional age), 1,000-1,249 grams (Primary Dx); Poor growth affecting management of mother in third trimester, single or unspecified fetus Start: 03-27-2025 End: 03-27-2025 ambulatory [facility] Start: 03-26-2025 End: 03-26-2025 Telephone encounter Melina Head RN [facility] Start: 03-25-2025 End: 03-25-2025 Chart abstracting Bakari Howell MD Work Phone: [facility] Start: 03-25-2025 End: 03-25-2025 Clinisync Result Encounter El Nupur DO Work Phone: [facility] Unsolicited Start: 03-25-2025 End: 03-25-2025 Clinisync Result Encounter El Nupur DO Work Phone: [facility] Unsolicited Start: 03-24-2025 End: 03-24-2025 Orders Only Estrellita Weinberg RN [facility] Comment on above: SGA (small for gesta tional age) (Primary Dx) Start: 03-20-2025 End: 03-20-2025 Bamboo flowsheet El Nupur DO Work Phone: [facility] Start: 03-20-2025 End: 03-20-2025 Bamboo flowsheet El Nupur DO Work Phone: [facility] Start: 03-20-2025 End: 03-20-2025 ambulatory EL NUPUR Not Available Start: 03-20-2025 End: 03-20-2025 flow sheet El Nupur DO Work Phone: [facility] Comment on above: Third trimester preg lucy; 32 weeks gestation of Start: 03-20-2025 End: 03-20-2025 ambulatory EL NUPUR Not Available Start: 03-06-2025 End: 03-06-2025 flow sheet El Nupur DO Work Phone: [facility] Comment on above: Third trimester preg lucy; 30 weeks gestation of ; Vaginal discharge Start: 03-06-2025 End: 03-06-2025 ambulatory EL NUPUR Not Available Start: 02-20-2025 End: 02-20-2025 Bamboo flowsheet Nhung LAUREANO Work Phone: [facility] Start: 02-20-2025 End: 02-20-2025 Bamboo flowsheet Nhung LAUREANO Work Phone: [facility] Start: 02-20-2025 End: 02-20-2025 ambulatory NHUNG YBARRA Not Available Start: 02-20-2025 End: 02-20-2025 flow sheet Nhung LAUREANO Work Phone: [facility] Comment on above: Third trimester preg lucy; 28 weeks gestation of ; Screen for STD (sexually transmitted disease); Encounter for follow-up ultrasound of anatomy Start: 02-13-2025 End: 02-13-2025 Clinisync Result Encounter El Nupur DO Work Phone: [facility] External Department Unsolicited Start: 02-13-2025 End: 02-13-2025 [...] OB Start: 07-23-2024 End: 07-23-2024 Bamboo flowsheet Le Nupur DO Work Phone: [facility] Start: 07-23-2024 End: 07-23-2024 ambulatory EL NUPUR Not Available Start: 07-23-2024 End: 07-23-2024 Office outpatient visit 15 minutes El Nupur DO Work Phone: [facility] Comment on above: Encounter for infert ility; PCOS (polycystic ovarian syndrome) Start: 04-18-2024 End: 04-18-2024 ambulatory Isabella Almendarez [facility] Work Phone: Start: 04-18-2024 End: 04-18-2024 Departed Referred TRINITY Almendarez Work Phone: [facility] [place] Work Phone: Start: 04-18-2024 End: 04-18-2024 Patient encounter procedure TIRNITY Almendarez Work Phone: [facility] Work Phone: Start: 12-29-2023 ambulatory Facility:[facility] Start: 01-11-2023 End: 01-11-2023 ambulatory Lynette Flores Other [employer] Other Start: 01-11-2023 Office outpatient vi sit 25 minutes Lynette Conrado [facility] Start: 12-13-2022 End: 12-13-2022 ambulatory Lanny Nieves Other [employer] Other Start: 12-13-2022 Office outpatient vi sit 15 minutes Lanny Nieves [facility] Start: 11-25-2022 End: 11-25-2022 ambulatory NONE LISTED REQUEST Facility:[facility] Start: 11-03-2022 End: 11-03-2022 ambulatory NONE LISTED REQUEST Facility:[facility] Start: 09-06-2022 End: 09-06-[address] GREG BO . Facility: Start: 08-18-2022 End: 08-18-2022 ambulatory MD Iker Olivas Work Phone: [facility] Work Phone: Start: 08-18-2022 End: 08-18-2022 Departed Referred MD Iker Olivas Work Phone: [facility] [place] Start: 08-16-2022 End: 08-17-[address] DOCTOR BERRY Facility: Start: 07-04-2022 End: 07-04-2022 ambulatory Lynette Conrado Other [employer] Other Start: 07-04-2022 Office outpatient vi sit 15 minutes Lynette Conrado [facility] Start: 05-05-2022 End: 05-05-2022 ambulatory IKER OLIVAS [facility] Start: 03-16-2022 End: 03-16-2022 Patient encounter procedure Iker OLIVAS [facility] [place] Start: 03-02-2022 End: 03-02-2022 Patient encounter procedure Iker OLIVAS [facility] [place] Start: 02-25-2022 End: 02-25-2022 ambulatory Maddie Yessi Other [employer] Other Start: 02-25-2022 Office outpatient vi sit 25 minutes Maddie Yessi [facility] Start: 02-22-2022 End: 02-22-2022 Patient encounter procedure Marli Rosenberg [facility] [place] Start: 01-10-2022 End: 01-10-2022 ambulatory Lynette Conrado Other [employer] Other Start: 01-10-2022 Office outpatient vi sit 15 minutes Lynette Conrado [facility] Start: 11-03-2021 End: 11-03-2021 ambulatory Maddie Yessi Other [employer] Other Start: 11-03-2021 Office outpatient vi sit 15 minutes Maddie Yessi [facility] Procedures Date Procedure Procedure Detail Performing Clinician Start: 04-08-2025 OB BPP W NON-STRESS El Nupur DO Work Phone: Start: 04-08-2025 Urnls dip stick/tabl et rgnt non-auto w/o micrscp Nhung LAUREANO Work Phone: Start: 03-25-2025 OB BPP W NON-STRESS El Nupur DO Work Phone: Start: 03-06-2025 Urnls dip stick/tabl et rgnt non-auto w/o micrscp El Nupur DO Work Phone: Start: 02-20-2025 Urnls dip stick/tabl et rgnt non-auto w/o micrscp Nhung LAUREANO Work Phone: Start: 02-13-2025 [facility] UA (CLEAN/CATCH) RETAIL SEASONAL SPECIALIST/MICRO IF IND. El Nupur DO Work Phone: [...] Comment on above: multiple surgeries w agatha Esqueda. Plan of Treatment Date Care Activity Detail Author Start: 09-01-2026 DTaP,Tdap and Td Vaccines (7 - Td or Tdap) DTaP,Tdap and Td Vaccines (7 - Td or Tdap) [facility] Start: 03-27-2026 Tobacco Screening Tobacco Screening [facility] Start: 07-21-2025 Influenza vaccination [facility] Start: 04-24-2025 End: 03-24-2026 US MFM with or without consult US MFM with or without consult Imaging Routine SGA (small for gestational age) Expected: 04/24/2025 (Approximate), Expires: 03/24/2026 [facility] Work Phone: Comment on above: Expected: 04/24/2025 (Approximate), Expires: 03/24/2026 Start: 04-22-2025 End: 04-22-2025 Patient encounter procedure 04/22/2025 1:50 PM EDT Routine [facility] [address] [place] [address] Nhung Ybarra PA [address] [place] [address] [facility] Start: 04-17-2025 End: 04-17-2025 Patient encounter procedure 04/17/2025 3:15 PM EDT Appointment [facility] [place] [address] [facility] [address] [place] [address] [facility] Start: 04-15-2025 End: 04-15-2026 CULTURE, GROUP B STREP WITH SUSCEPTIBLITY CULTURE, GROUP B STREP WITH SUSCEPTIBLITY Lab Routine Third trimester Expected: 04/15/2025, Expires: 04/15/2026 [facility] Work Phone: Comment on above: Expected: 04/15/2025 , Expires: 04/15/2026 Start: 04-15-2025 End: 04-15-2025 Patient encounter procedure [facility] Comment on above: Arrived Start: 04-08-2025 End: 04-08-2025 Patient encounter procedure [facility] Comment on above: Arrived Start: 03-27-2025 End: 03-27-2025 Telemedicine consultation with patient 03/27/2025 2:00 PM EDT Telemedicine Maternal- Medicine at [facility] [address] [place] [address] Bakari Howell MD [address], [address] [place] [address] Maternal- Medicine at [facility] Start: 03-27-2025 End: 03-27-2025 Patient encounter procedure 03/27/2025 1:00 PM EDT Appointment [facility] [address] [place] [id number] [facility] Start: 03-20-2025 End: 03-20-2025 Patient encounter procedure [facility] Comment on above: Arrived Start: 03-20-2025 End: 03-20-2025 Professional / ancillary services management 03/20/2025 9:30 AM EDT Ancillary Procedure [facility] [address] [place] [id number] [facility] Start: 2025 Screening for malign ant neoplasm of cervix Pap Smear [facility] Start: 03-06-2025 End: 03-06-2025 Patient encounter procedure 03/06/2025 10:40 AM EDT Routine [facility] [address] [place] [phone] lE Espitia, DO [address] [place] [address] [facility] Start: 03-06-2025 End: 03-06-2025 Professional / ancillary services management 03/06/2025 10:00 AM EDT Ancillary Procedure [facility] [address] [place] [address] [facility] Start: 02-20-2025 End: 02-20-2026 US for US OB limited 1+ fetuses Imaging Routine Encounter for follow-up ultrasound of anatomy Expected: 02/20/2025 (Approximate), Expires: 02/20/2026 [facility] Comment on above: Expected: 02/20/2025 (Approximate), Expires: 02/20/2026 Start: 02-20-2025 End: 02-20-2025 Patient encounter procedure 02/20/2025 10:20 AM EDT Routine [facility] [address] [place] [phone] Nhung Ybarra PA [address] [place], [place] [id number] [facility] Start: 01-23-2025 End: 01-23-2026 CBC panel - Blood by Automated count CBC Lab Routine Diabetes mellitus screening Expected: 01/23/2025 (Approximate), Expires: 01/23/2026 [facility] Work Phone: Comment on above: Expected: 01/23/2025 (Approximate), Expires: 01/23/2026 Start: 01-23-2025 End: 01-23-2026 Measurement of glucose 1 hour after glucose challenge for glucose tolerance test Glucose tolerance, 1 hour Lab Routine Diabetes mellitus screening Expected: 01/23/2025 (Approximate), Expires: 01/23/2026 [facility] Comment on above: Expected: 01/23/2025 (Approximate), Expires: 01/23/2026 Start: 01-23-2025 End: 01-23-2025 Patient encounter procedure 01/23/2025 10:20 AM EST Routine [facility] [address] [place] [phone] El Espitia DO [address] [place] [address] [facility] Start: 12-30-2024 End: 12-30-2025 12 lead ECG ECG 12 lead unit performed ECG Routine Near syncope Lightheadedness Expected: 12/30/2024 (Approximate), Expires: 12/30/2025 [facility] Comment on above: Expected: 12/30/2024 (Approximate), Expires: 12/30/2025 Start: 12-30-2024 End: 12-30-2026 Echocardiogram 2D complete Echocardiogram 2D complete Echocardiography Routine Near syncope Lightheadedness Expected: 12/30/2024 (Approximate), Expires: 12/30/2026 [facility] Comment on above: Expected: 12/30/2024 (Approximate), Expires: 12/30/2026 Start: 12-30-2024 End: 12-30-2024 Patient encounter procedure 12/30/2024 11:30 AM EST Routine [facility] [address] [facility] [place] [phone] El Espitia, DO [address] [place], [place] [address] [place] [address] [facility] Start: 12-30-2024 End: 12-30-2024 Professional / ancillary services management 12/30/2024 10:30 AM EST Ancillary Procedure [facility] [address] [facility] [place] [phone] [facility] Start: 11-26-2024 End: 01-24-2025 Alpha fetoprotein, maternal Alpha fetoprotein, maternal Lab Routine 15 weeks gestation of Expected: 11/26/2024 (Approximate), Expires: 01/24/2025 [facility] Comment on above: Expected: 11/26/2024 (Approximate), Expires: 01/24/2025 Start: 11-26-2024 End: 11-26-2025 US for US OB 14+ weeks anatomy scan Imaging Routine 15 weeks gestation of Screening, , for anatomic survey Expected: 11/26/2024, Expires: 11/26/2025 [facility] Work Phone: Comment on above: Expected: 11/26/2024 , Expires: 11/26/2025 Start: 11-26-2024 End: 11-26-2024 Patient encounter procedure 11/26/2024 11:30 AM EST Routine [facility] [address] [facility] [place] [phone] El Espitia, DO [address] [place] [address] [facility] Start: 10-25-2024 End: 10-25-2025 ABO/Rh ABO/Rh Lab Routine Missed menses , unspecified gestational age Expected: 10/25/2024 (Approximate), Expires: 10/25/2025 [facility] Comment on above: Expected: 10/25/2024 (Approximate), Expires: 10/25/2025 Start: 10-25-2024 End: 10-25-2025 Blood type and Indirect antibody screen panel - Blood Type and screen Lab Routine Missed menses , unspecified gestational age Expected: 10/25/2024 (Approximate), Expires: 10/25/2025 [facility] Work Phone: Comment on above: Expected: 10/25/2024 (Approximate), Expires: 10/25/2025 Start: 10-25-2024 End: 10-25-2025 Drugs of abuse panel - Urine by Screen method Rapid drug screen, urine Lab Routine , unspecified gestational age Encounter for supervision of normal first in first trimester Expected: 10/25/2024 (Approximate), Expires: 10/25/2025 [facility] Comment on above: Expected: 10/25/2024 (Approximate), Expires: 10/25/2025 Start: 10-25-2024 End: 10-25-2025 US Pelvis transvaginal US OB transvaginal Imaging Routine Missed menses Expected: 10/25/2024 (Approximate), Expires: 10/25/2025 [facility] Comment on above: Expected: 10/25/2024 (Approximate), Expires: 10/25/2025 Start: 07-23-2024 End: 07-23-2025 Antimullerian hormone (AMH) Antimullerian hormone (AMH) Lab Routine Encounter for infertility PCOS (polycystic ovarian syndrome) Expected: 07/23/2024 (Approximate), Expires: 07/23/2025 [facility] Comment on above: Expected: 07/23/2024 (Approximate), Expires: 07/23/2025 Start: 07-23-2024 End: 07-23-2025 DHEA DHEA Lab Routine PCOS (polycystic ovarian syndrome) Expected: 07/23/2024 (Approximate), Expires: 07/23/2025 [facility] Comment on above: Expected: 07/23/2024 (Approximate), Expires: 07/23/2025 Start: 07-23-2024 End: 07-23-2025 US for US PELVIS-TRANSVAG IF INDICATED Imaging Routine PCOS (polycystic ovarian syndrome) Expected: 07/23/2024 (Approximate), Expires: 07/23/2025 [facility] Comment on above: Expected: 07/23/2024 (Approximate), Expires: 07/23/2025 Start: 07-21-2024 COVID-19 Vaccine () COVID-19 Vaccine () [facility] Start: 07-21-2024 Influenza vaccination Influenza Vacc ine (#1) [facility] Start: 04-19-2024 Bacteria identified in Urine by Culture [facility] Start: 04-18-2024 Bacteria identified in Urine by Culture [facility] Start: 2023 DTaP,Tdap and Td Vaccines (1 - Tdap) DTaP,Tdap and Td Vaccines (1 - Tdap) [facility] Start: 2022 Adult BMI Screening Adult BMI Screen ing [facility] Start: 2016 Depression Screening Depression Scre ening [facility] Start: 2016 Tobacco Screening Tobacco Screening [facility] Start: 2004 Screening for Chlamy kiera trachomatis Chlamydia Screening [facility] Bacteria identified in Urine by Culture Urine culture Microbiology Routine Missed menses Ordered: 10/25/2024 [facility] Comment on above: Ordered: 10/25/2024 Bacteria identified in Urine by Culture Urine culture Microbiology Routine UTI symptoms Ordered: 12/30/2024 [facility] Work Phone: Comment on above: Ordered: 12/30/2024 CBC W Auto Different ial panel - Blood CBC and differential Lab Routine PCOS (polycystic ovarian syndrome) Ordered: 07/23/2024 [facility] Comment on above: Ordered: 07/23/2024 CBC W Auto Different ial panel - Blood CBC and differential Lab Routine Missed menses , unspecified gestational age Ordered: 10/25/2024 [facility] Comment on above: Ordered: 10/25/2024 CBC W Auto Different ial panel - Blood CBC and differential Lab Routine Near syncope Lightheadedness Ordered: 12/30/2024 [facility] Comment on above: Ordered: 12/30/2024 CHLAMYDIA TRACHOMATI S (GENITO/STI) CHLAMYDIA TRACHOMATIS (GENITO/STI) Lab Routine Screen for STD (sexually transmitted disease) Ordered: 02/20/2025 [facility] Comment on above: Ordered: 02/20/2025 CHLAMYDIA TRACHOMATI S (GENITO/STI) CHLAMYDIA TRACHOMATIS (GENITO/STI) Lab Routine Vaginal discharge Ordered: 03/06/2025 [facility] Comment on above: Ordered: 03/06/2025 DHEA-sulfate DHEA-sulfate Lab Routine PCOS (polycystic ovarian syndrome) Ordered: 07/23/2024 [facility] Comment on above: Ordered: 07/23/2024 Estradiol Estradiol Lab Ro utine Encounter for infertility PCOS (polycystic ovarian syndrome) Ordered: 07/23/2024 [facility] Comment on above: Ordered: 07/23/2024 Follicle stimulating hormone Follicle stimulating hormone Lab Routine PCOS (polycystic ovarian syndrome) Ordered: 07/23/2024 [facility] Comment on above: Ordered: 07/23/2024 hCG, quantitative, hCG, quantitative, Lab Routine PCOS (polycystic ovarian syndrome) Ordered: 07/23/2024 [facility] Work Phone: Comment on above: Ordered: 07/23/2024 Hemoglobin A1c/Hemoglobin.total in Blood Hemoglobin A1c Lab Routine Encounter for infertility PCOS (polycystic ovarian syndrome) Ordered: 07/23/2024 [facility] Comment on above: Ordered: 07/23/2024 Hemoglobin A1c/Hemoglobin.total in Blood Hemoglobin A1c Lab Routine Missed menses , unspecified gestational age Ordered: 10/25/2024 [facility] Comment on above: Ordered: 10/25/2024 Hepatitis B virus surface Ag [Presence] in Serum or Plasma by Immunoassay Hepatitis B surface antigen Lab Routine Missed menses , unspecified gestational age Ordered: 10/25/2024 [facility] Comment on above: Ordered: 10/25/2024 Hepatitis C virus Ab [Presence] in Serum or Plasma by Immunoassay Hepatitis C antibody Lab Routine Missed menses , unspecified gestational age Ordered: 10/25/2024 [facility] Comment on above: Ordered: 10/25/2024 HIV-1/HIV-2 antigen/antibody combination immunoassay HIV-1 and HIV-2 antibodies Lab Routine Missed menses , unspecified gestational age Ordered: 10/25/2024 [facility] Comment on above: Ordered: 10/25/2024 Luteinizing hormone Luteinizing hormone Lab Routine PCOS (polycystic ovarian syndrome) Ordered: 07/23/2024 [facility] Comment on above: Ordered: 07/23/2024 Neisseria gonorrhoea e DNA [Presence] in Unspecified specimen by YUNG with probe detection Neisseria gonorrhea DNA probe, direct Lab Routine Screen for STD (sexually transmitted disease) Ordered: 02/20/2025 [facility] Comment on above: Ordered: 02/20/2025 Neisseria gonorrhoea e DNA [Presence] in Unspecified specimen by YUNG with probe detection Neisseria gonorrhea DNA probe, direct Lab Routine Vaginal discharge Ordered: 03/06/2025 [facility] Comment on above: Ordered: 03/06/2025 Progesterone Progesterone Lab Routine Encounter for infertility PCOS (polycystic ovarian syndrome) Ordered: 07/23/2024 [facility] Comment on above: Ordered: 07/23/2024 Reagin Ab [Presence] in Serum by RPR RPR Lab Routine Missed menses , unspecified gestational age Ordered: 10/25/2024 [facility] Comment on above: Ordered: 10/25/2024 Rubella antibody, IgG Rubella an tibody, IgG Lab Routine Missed menses , unspecified gestational age Ordered: 10/25/2024 [facility] Comment on above: Ordered: 10/25/2024 SURESWAB(R) ADVANCED VAGINITIS PLUS, TMA SURESWAB(R) ADVANCED VAGINITIS PLUS, TMA Pathology and Cytology Routine Screen for STD (sexually transmitted disease) Ordered: 02/20/2025 [facility] Work Phone: Comment on above: Ordered: 02/20/2025 SURESWAB(R) ADVANCED VAGINITIS PLUS, TMA SURESWAB(R) ADVANCED VAGINITIS PLUS, TMA Pathology and Cytology Routine Vaginal discharge Ordered: 03/06/2025 [facility] Work Phone: Comment on above: Ordered: 03/06/2025 Thyrotropin [Units/volume] in Serum or Plasma TSH Lab Routine PCOS (polycystic ovarian syndrome) Ordered: 07/23/2024 [facility] Comment on above: Ordered: 07/23/2024 Thyrotropin [Units/volume] in Serum or Plasma TSH Lab Routine Near syncope Lightheadedness Ordered: 12/30/2024 [facility] Comment on above: Ordered: 12/30/2024 Thyroxine (T4) free [Mass/volume] in Serum or Plasma T4, free Lab Routine PCOS (polycystic ovarian syndrome) Ordered: 07/23/2024 [facility] Comment on above: Ordered: 07/23/2024 Immunizations Immunization Date Immunization Notes Care Provider Gulshan nunes 12-10-2020 hepatitis A vaccine, pediatric/adolescent dosage, 2 dose schedule Marli Rosenberg [facility] [place] 12-10-2020 meningococcal polysaccharide (groups A, C, Y and W-135) diphtheria toxoid conjugate vaccine (MCV4P) Marli Olds [facility] [place] 09-01-2016 meningococcal ACWY vaccine, unspecified formulation Marli Rosenberg [facility] [place] 09-01-2016 tetanus toxoid, redu matthieu diphtheria toxoid, and acellular pertussis vaccine, adsorbed Marliannia Rosenberg [facility] [place] 12-10-2013 influenza virus vacc ine, unspecified formulation Marliannia Rosenberg [facility] [place] 12-11-2008 influenza virus vacc ine, unspecified formulation Marliannia Rosenberg [facility] [place] 05-01-2008 diphtheria, tetanus toxoids and acellular pertussis vaccine Marliannia Rosenberg [facility] [place] 05-01-2008 hepatitis B vaccine, adult dosage Marli Rosenberg [facility] [place] 05-01-2008 measles, mumps and rubella virus vaccine Marli Rosenberg [facility] [place] 05-01-2008 poliovirus vaccine, unspecified formulation Marli Rosenberg [facility] [place] 05-01-2008 varicella virus vaccine Brittney Rosenberg [facility] [place] 03-16-2005 diphtheria, tetanus toxoids and acellular pertussis vaccine Marli Rosenberg [facility] [place] 03-16-2005 haemophilus influenz ae type b vaccine, HbOC conjugate Marli Rosenberg [facility] [place] 03-16-2005 measles, mumps and rubella virus vaccine Marli Rosenberg [facility] [place] 03-16-2005 pneumococcal conjuga te vaccine, 13 valent Marli Rosenberg [facility] [place] 03-16-2005 varicella virus vaccine Brittney Rosenberg [facility] [place] 2004 influenza virus vacc ine, unspecified formulation Marli Rosenberg [facility] [place] 2004 diphtheria, tetanus toxoids and acellular pertussis vaccine Marli Wray [facility] [place] 2004 haemophilus influenz ae type b vaccine, HbOC conjugate Marli Wray [facility] [place] 2004 hepatitis B vaccine, adult dosage Marli Wray [facility] [place] 2004 pneumococcal conjuga te vaccine, 13 valent Marli Wray [facility] [place] 2004 poliovirus vaccine, unspecified formulation Marli Chet [facility] [place] 2004 diphtheria, tetanus toxoids and acellular pertussis vaccine Marli Chet [facility] [place] 2004 haemophilus influenz ae type b vaccine, HbOC conjugate Marli Chet [facility] [place] 2004 hepatitis B vaccine, adult dosage Marli Chet [facility] [place] 2004 pneumococcal conjuga te vaccine, 13 valent Marli Wray [facility] [place] 2004 poliovirus vaccine, unspecified formulation Marli Wray [facility] [place] 2004 diphtheria, tetanus toxoids and acellular pertussis vaccine Marli Wray [facility] [place] 2004 haemophilus influenz ae type b vaccine, HbOC conjugate Marli Rosenberg [facility] [place] 2004 hepatitis B vaccine, adult dosage Marli Rosenberg [facility] [place] 2004 pneumococcal conjuga te vaccine, 13 valent Marli Wray [facility] [place] 2004 poliovirus vaccine, unspecified formulation Marli Rosenberg [facility] [place] Payers Date Payer Category Payer Medicaid HMO [employer] [id number] 2024 Self-pay [id number] 2024 Medicaid [employer] [place] [id number] 2024-Present [address] [place] [id number] 2024 Medicaid [id number] 2013 Managed Care Other (unspecified) [id number] 2013 Private Health Insurance [id number]. [id number] 2004 Unknown [id number] 2.16.840.1.947843.3.579.2. 479 2004 Unknown [id number] 2.16.840.1.243737.3.579.2. 593 2004 Unknown [id number] 2.16.840.1.311983.3.579.2. 593 2004 Unknown [id number] 2.16.840.1.855669.3.579.2. 593 2004 Unknown [id number] 2.16.840.1.969846.3.579.2. 1286 2004 Unknown [id number] 2.16.840.1.726385.3.579.2. 1259 2004 Unknown [id number] 2.16.840.1.218701.3.579.2. 1259 2004 Unknown [id number] 2.16.840.1.897211.3.579.2. 1259 2004 Unknown [id number] 2.16.840.1.486470.3.579.2. 1259 2004 Unknown [id number] 2.16.840.1.497379.3.579.2. 1259 2004 Unknown [id number] 2.16.840.1.294459.3.579.2. 1259 2004 Unknown [id number] 2.16.840.1.388832.3.579.2. 1259 2004 Unknown [id number] 2.16.840.1.771697.3.579.2. 1259 2004 Unknown [id number] 2.16.840.1.974581.3.579.2. 9 2004 Unknown [id number] 2.16.840.1.434594.3.579.2. 9 2004 Unknown [id number] 2.16.840.1.046622.3.579.2. 1258 2004 Unknown [id number] 2.16.840.1.274890.3.579.2. 1258 2004 Unknown [id number] 2.16.840.1.107952.3.579.2. 9 2004 Unknown [id number] 2.16.840.1.034302.3.579.2. 1285 2004 Unknown [id number] 2.16.840.1.365658.3.579.2. 1285 2004 Unknown [id number] 2.16.840.1.590952.3.579.2. 1286 1984 Unknown [id number] 2.16.840.1.186945.3.579.2. 593 1959 Unknown [id number] 2.16.840.1.922520.19 1959 Unknown [id number] 2.16840.1.761311.19 1959 Unknown [id number] 2.16840.1.982835.19 Unknown [employer] BC/BS [id number] Unknown [id number] 2.16840.1.654580.19 Unknown [id number] 2.16840.1.873675.3.579.2. 531 Social History Date Type Detail Facility Start: 01-07-2022 End: 03-25-2025 Tobacco smoking status Never smoked tobacco (finding) [facility] [employer] Other Tobacco smoking status Never [facility] [place] Start: 07-23-2024 End: 03-27-2025 Sex Assigned At Female [facility] [employer] Other Start: 2004 Sex Assigned At Female F [facility] Start: 11-01-2023 End: 03-25-2025 Tobacco use and exposure Smokeless tobacco non-user [facility] Start: 07-23-2024 End: 04-08-2025 Alcoholic beverage intake Lifetime non-drinker (finding) [facility] Start: 07-23-2024 End: 03-27-2025 History of Social function [facility] Start: 11-01-2023 Alcohol Comment caffeine: pop/ tea once or twice a week [facility] Start: 07-23-2024 Gender identity Identifies as female gender (finding) [facility] Start: 08-22-2024 [facility] Tobacco smoking status NHIS Tobacco smoking consumption unknown [facility] Start: 2004 Sex assigned at Not on file P [facility] Start: 03-24-2025 Sex Female (finding) [facility] Start: 03-27-2025 Alcoholic beverage intake Ex-drinker (finding) [facility] Clinical Notes 08-21-2013 to 04-15-2025 Mary Cody LPN - 04/15/2025 1:10 PM GEORGI Capps - 04/08/2025 10:50 AM Luis Head RN - 03/27/2025 2:00 PM Cintia Howell MD - 03/27/2025 2:00 PM EDT Note Date & Type Note Facility 04-15-2025 History of Presen t illness Narrative Reason [...] nursing note reviewed. Exam conducted with a channel rebuilder present. Vitals: Estimated body mass index is 26.16 kg/m as calculated from the following: Height [...] in first trimester, single or unspecified fetus [id number] Patient is doing well but has complaints [...] El Espitia DO documented in this encounter [facility] 04-08-2025 History of Presen t illness Narrative [...] of: GEORGI Presley documented in this encounter [facility] 03-27-2025 History of Presen t illness Narrative Headache/epigastric pain/blurry vision/swelling? denies Cramping/contractions? Random tightening in abdomen Abnormal vaginal discharge? deines Spotting/vaginal bleeding? denies Loss or gush of fluid like your water may have broken? denes Do you have cats at home? one Do you change the litter box (reason: risk of toxoplasmosis)? no Genetic testing done this here or other office? patient declined testimg Have you been seen here at [facility] in a previous ? no Recent ER visits or hospitalizations? For UTI about 4 weeks ago Bring blood sugar log or meter with you today? (Please bring them with you for every visit at [facility]) Flu vaccine (Sep-January)? Any concerns that you would like me to mention to the provider today? Cramping in legs REASON FOR TELEMEDICINE VIDEO CONSULTATION: growth restriction HISTORY OF PRESENT ILLNESS: Shilpi Millard is a pleasant 20 y.o. 010. at 33w0d due on Estimated Date of Delivery: 05/15/25 . Patient was seen today due to the following 1. growth restriction at 8th percentile with normal Doppler studies. Patient is dated by 1st trimester ultrasound. Normal amniotic fluid index. Currently the patient has no complaints. The patient denies nausea, vomiting, abdominal pain, vaginal bleeding, SOB or chest pain. Patient's PMH/PSH,SH,PSYCH Hx, MEDs, ALLERGIES, and ROS were all reviewed and updated in the appropriate sections. Patient Active Problem List Diagnosis Poor growth affecting management of mother in third trimester Past Medical History: Diagnosis Date Migraine Near syncope PAST OBSTETRICAL HISTORY: OB History 2 Para Term AB 1 Living SAB 1 IAB Ectopic Multiple Live Births SURGICAL HISTORY: Past Surgical History: Procedure Laterality Date DENTAL SURGERY EYE SURGERY ALLERGIES: Allergies Allergen Reactions Coconut GI Disturbance Iron Hives Latex Hives and Rash CURRENT MEDICATIONS: Current Outpatient Medications: 410-qsmq-ocyqd ac-dha (PRENA1 TRUE) 30 mg iron- 1.4 mg-300 mg combo pack, Take 1 tablet by mouth in the morning. Indications: ., Disp: , Rfl: FAMILY/GENETIC HISTORY: No family history of VTE, cardiac defects and mental retardation . RECENT HOSPITALIZATION: none I did review all the labs results available in addition to labs which were ordered by the primary care physician, and the other consultants, we search on [facility] and all the available care everywhere epic I did review all the imaging studies of the patient available on EMR, ordered by the primary care physician and the other underwriting consultant HABITS: Patient activity no restrictions, diet no restrictions REVIEW OF SYSTEM: Head and Neck: Negative for any dizziness and headaches. Cardiovascular and Respiratory System: Denies any chest pain, shortness of breath, and coughing. Abdominal and System: Denies any abdominal pain, nausea, vomiting, vaginal bleeding, and vaginal discharge PHYSICAL EXAMINATION: BP 98/64 Wt 66.1 kg (145 lb 12.8 oz) LMP 07/15/2024 (Approximate) . Gravid abdomen, Respirations not labored. Well oriented time place person, normal gait MEDICAL DECISION MAKING DISCUSSION: We started our discussion with pathophysiology of growth restriction (FGR) that can result from a variety of maternal, , and placental conditions.1 Although the primary underlying mechanisms for FGR are varied, they often share the same final common pathway of suboptimal nutrition and uteroplacental perfusion. Chromosomal disorders and congenital malformations are responsible for approximately 20% of FGR cases. Suboptimal perfusion of the maternal placental circulation is the most common cause of FGR and accounts for 25e30% of all cases. FGR occurs in up to 10% of pregnancies and is a leading cause of morbidity and mortality. In fetuses at all gestational ages with weights or abdominal circumference below the 10th percentile, the stillbirth rate is approximately 1.5%, which is twice the rate in fetuses with normal growth. Further discussed the frame work of managing fetus with growth restriction. This include testing in the form of nonstress tests JOSEPH and Doppler studies that will occur serially until the patient is delivered. Timing of delivery is contingent upon testing Doppler studies and amniotic fluid index and can change according to the test results. RECOMMENDATION: 1. growth restriction with estimated weight at the 8th percentile. 2. Serial Doppler studies at M office. 3. Continue testing in the form once a week NST and JOSEPH at her OB office. 4. Increase testing twice weekly NST and weekly JOSEPH at 36 weeks gestation OB office. 5. Delivery at 38-39 weeks gestation based on estimated weight at the 8th percentile with normal Doppler 6. Studies. 7. Patient is low risk and can be delivered at her local hospital. DISPOSITION: At this point the patient is in complete care of her vaccines solutions specialist. Patient does have ultrasound scheduled with us. Thank you for allowing me to participate in Shilpi Millard . If there any questions please do not hesitate to contact us. Sincerely, BAKARI HOWELL MD Video Visit via Real-time Synchronous Audiovisual Provider Location: [facility] AT [address] [phone] Patient Location: Other [facility] office. Patient Location Radio Television Technical Director: None Video Visit Consent Statement: I discussed risks, benefits, and alternatives of a real-time synchronous audiovisual consultation with the patient (and any accompanying persons) including the risks that the patient's personal health details and medical records will be discussed over real-time, synchronous, interactive video/audio/telecommunication technology, the visit will not be recorded without the express consent of both the provider and the patient, and that there are some limitations compared to knos-ec-pzvp evaluations. We elected to proceed. documented in this encounter [facility] 03-26-2025 Miscellaneous Notes Formattin g of this note might be different from the original. Called Dr. Espitia's office regarding any NIPTS/CS testing that was done. Left message on nurse line to fax results or call office. Nurse called back and advises that patient has not had any screenings completed documented in this encounter [facility] 03-26-2025 Telephone encount er Note Called Dr. Espitia's office regarding any NIPTS/CS testing that was done. Left message on nurse line to fax results or call office. Nurse called back and advises that patient has not had any screenings completed [facility] 03-20-2025 History of Presen t illness [...] nursing note reviewed. Exam conducted with a channel rebuilder present. Vitals: Estimated body mass index is [...] El Espitia DO documented in this encounter [facility] 03-06-2025 History of Presen t illness Narrative [...] nursing note reviewed. Exam conducted with a channel rebuilder present. Vitals: Estimated body mass index is [...] El Espitia DO documented in this encounter [facility] 02-20-2025 History of Presen t illness Narrative [...] nursing note reviewed. Exam conducted with a channel rebuilder present. Vitals: Estimated body mass index is [...] of: GEORGI Presley documented in this encounter [facility] 01-23-2025 History of Presen t illness Narrative [...] El Espitia DO documented in this encounter [facility] 12-30-2024 History of Presen t illness Narrative [...] nursing note reviewed. Exam conducted with a channel rebuilder present. Vitals: Estimated body mass index is [...] and EKG will be sent to [facility] to be scheduled. Will also send orders for TSH to be drawn every 4 weeks throughout and CBC will also need to be drawn. Patients urine will be sent out for culture today with sample that was provided in office. Documented by Reyna Leal LPN on behalf of: El Espitia DO documented in this encounter [facility] 11-26-2024 History of Presen t illness Narrative [...] nursing note reviewed. Exam conducted with a channel rebuilder present. Vitals: Estimated body mass index is [...] or undercooked meat, and stay away from [facility]. Patient has been consulted regarding any [...] El Espitia DO documented in this encounter [facility] 10-25-2024 History of Presen t illness Narrative [...] Fidelia Bowling MA documented in this encounter [facility] 07-23-2024 History of Presen t illness Narrative [...] nursing note reviewed. Exam conducted with a channel rebuilder present. Vitals: Estimated body mass index is [...] El Espitia DO documented in this encounter [facility] 01-11-2023 Evaluation note Encounter Date Diagnosis Assessment Notes Dec, Acute effusion of left ear (ICD-10 - H65.192) try this medication and referral sent to ENT since conservative treatment has been used by urgent care and PCP without improvement of symptoms. [employer] Other 01-24-2023 Evaluation note* Encounter Date [...] understanding and is agreeable to treatment plan [employer] Other 08-15-2022 Evaluation note* Encounter Date Diagnosis Assessment Notes Treatment Notes Treatment Clinical Notes Jun, Tooth infection (ICD-10 - K04.7) Take medications as directed.Highly encourage patient to contact dentist CARLY for further treatment of infection. Ok to take OTC medications like ibuprofen with prescriptions [employer] Other 06-16-2022 Chana Millard is here for consultation at the request of Iker Olivas MD for: Constipation ---History from parent and patient History of Present Illness My advice was requested by Iker Olivas MD. She is accompanied by her mother and sibling(s). No selector packer was used. ABD pain - Patient has [...] 40mg per day Mirala (more content not included)...[facility]-2022 Hospital Discharge instructions Follow Up Care 03/02/2022 15:03:01 With:BRENDON DENTON, Iker Eddy, PED Address: [facility] [address] [address] [place] [address]- When:03/30/2022 Comments:recheck dyspnea/chest pain [facility] 04-13-2022 Hospital Discharge instructions Follow Up Care 03/02/2022 09:25:52 With:Iker OLIVAS MD, PED Address: [facility] [address] [place] [address]- When:03/16/2022 Comments:recheck SOB [facility] 04-08-2022 Evaluation note* Encounter Date Diagnosis Assessment [...] 3 days. Feb, Bronchitis (ICD-10 - J40) [employer] Other 04-05-2022 Hospital Discharge instructions Follow Up Care 02/22/2022 08:51:47 With:Marli Rosenberg MD Address: When: Unknown Comments:f/up in 2 months for recheck anxiety [facility] [place] 02-21-2022 Evaluation note* Encounter Date [...] we will help you get into specialist. [employer] Other 12-15-2021 Evaluation note* Encounter Date Diagnosis Assessment Notes Treatment Notes Treatment Clinical Notes Oct, Sore throat (ICD-10 - J02.9) Oct, Viral pharyngitis (ICD-10 - J02.9) Drink plenty of fluids, get plenty of rest. Tylenol or Motrin for aches pains or fevers. Follow-up with family physician if no improvement in 2 to 3 days for [employer] Other 10-02-2013 History general Narrative - Reported* Type Description Date Medical History eczema Medical History reactive airway Medical History Radial fracture (resolved 2012) Medical History Strep throat (resolved ) Surgical History dental reconstruction age 1 [employer] Other 10-02-2013 History general Narrative - Reported* Type Description Date Medical History eczema Medical History reactive airway Medical History Radial fracture (resolved 2012) Medical History Strep throat (resolved ) Surgical History dental reconstruction age 1 Surgical History Cyst Removal Left eye 08/2022 [employer] Other Evaluation + Plan note Referrals to Other Providers Referred by: Marli Rosenberg MD [facility] [place] Evaluation + Plan note Future Appointments Appointment Date:03/16/2022 02:00:00 PM Scheduled Provider:Iker OLIVAS MD Location:[facility] Appointment Type:Peds OV 10 Referrals to Other Providers Referred by: Iker OLIVAS MD [facility] [place] evaluation + Plan note Future Appointments Appointment Date:03/30/2022 08:40:00 AM Scheduled Provider:Iker OLIVAS MD Location:[facility] [place] Appointment Type:Peds OV 10 [facility] [place] Evaluation noteNo assessment information available [facility] Work Phone: evaluation note* Diagnosis Onset Date Resolution Status Acute UTI (urinary tract infection) acute [facility] Work Phone: evaluation note* Diagnosis Encounter [...] Diagnosis SGA (small for gestational age)- Primary Iitlz-ddm-ccbdn without mention of malnutrition, unspecified (weight) documented in this encounter [facility]* Diagnosis Third trimester state, incidental 34 weeks gestation of [facility] Diagnosis Third trimester state, incidental Poor growth affecting management of mother in first trimester, single or unspecified fetus [facility] Diagnosis SGA (small for gestational age), 1,000-1,249 grams- Primary Xacec-hwm-hqfgs without mention of malnutrition, 1,000-1,249 grams Poor growth affecting management of mother in third trimester, single or unspecified fetus documented in this encounter [facility] Narrative No data available for this section [facility] [place] InstructionsNot on filedocumented in this encounter [facility] filedocumented in this encounter [facility] on filedocumented in this encounter [facility] Reason for Referral Reason *FU 02/02 Middle e ar effusion that is persisting Diagnosis 1 Acute effusion of le ft ear (H65.192) Referral Organization [facility] Family Medicin e Michael Referring Provider First Name Lynette Referring Provider Last Name Conrado Referring Provider Specialty Nurse Pract itioner Referred Organization [facility] Referred Provider Fiordaliza Akers Referred Address ,[place], [place],[address] Referred Provider Specialty Ear, Nose an d Throat Referral Priority Routine General Notes Sailaja Laguna 023 07:30:08 AM >Received today and waiting for office notes to be locked before sending referral. Will not be sending insurance card with referral since there was no updated card in chart [facility] 01:30:59 PM >Dr. Akers request us to fax or send the referral P2P and they will call and schedule patient. I fax and sent P2P. They feel if the patient is not in their system then they will not create the referral so to be safe I fax as well. Referral was sent P2P and Fax [facility]/19/2023 09:28:43 AM >Fax letter for appt update [facility] 01/26/2023 09:19:01 AM >Fax 2nd request [...] Comments Routine Visit Reason Comments Routine Visit Reason Comments MFM consult Care Teams (unrecognized sec tion and content) [...] section and content) DATE CREATED AUTHOR 03/02/2023 [facility] DATE CREATED AUTHOR AUTHOR'S ORGANIZ ATION 03/25/2023 [facility] DATE CREATED AUTHOR AUTHOR'S ORGANIZ ATION 12/30/2023 [facility] DATE CREATED AUTHOR AUTHOR'S ORGANIZ ATION 01/10/2025 [facility] DATE CREATED AUTHOR AUTHOR'S ORGANIZ ATION 03/29/2025 [facility] DATE CREATED AUTHOR AUTHOR'S ORGANIZ ATION 04/18/2025 [facility] DATE CREATED AUTHOR AUTHOR'S ORGANIZ ATION 04/20/2025 [facility] FOR RECORDS PERTAINING TO PATIENTS [...] BE BASED ON THE PRIMARY CLINICAL RECORDS. [employer] [facility]. provides no warranty or guarantee of the accuracy or completeness of information in this document.
[2025-04-22 10:38] VITALS: BP 117/63; PULSE 101
== END 2025-04-22 11:05 | disposition home or self-care (01) ==
LOC: US 10:03 → FBC 10:08
PROVIDERS: PCP Nurse Practitioner Family; Visit Provider Obstetrics & Gynecology
DX: O26.843 Uterine size-date discrepancy, third trimester (principal)
CPT/HCPCS: 76818; 76820

== ENCOUNTER 2025-04-25 09:07 | Outpatient (OUT) | payer OTHER, SELFPAY ==
--- OUTSIDE RECORDS SUMMARY | 2008-12-11 06:30 | XMS_ITS | Continuity of Care Document ---
Author Organization [facility] Address [address] [place] [address] Phone Care Team Providers Care Pest Control Service Sales Agent Name Role Phone Shante DANIEL Danielito Unavailable Unavailable Procedures Procedure Date FLU VACCINE, 3 YRS, IM Advance Directives Directive Yes / No Effective Date File Name No Information Encounters Encounter Description Practice Location Reason(s) For Visit Diagnoses Date Provider Providers Copied on Encounter [facility], [address] [place], [place], [id number], tel:[phone] [facility] No Information Shante Christensen. [address] [place], [place], [id number], [place]. tel:[phone] Family History Family Member Type Diagnosis Age At Onset No Information Payers Payer name Insurance type Covered alliance party ID Authoriza tion(s) No Information Social History [...]
--- OUTSIDE RECORDS SUMMARY | 2024-07-02 05:16 | XMS_ITS ---
Author Organization The [facility] in [place] Address [address] [place] [address] Care Team Providers Care Is Support Analyst Name Role Phone Maddie Gould Primary Care Provider [phone] REASON FOR VISIT + covid Medications Medication SIG (Take, Route, Frequency, Duration) Notes Start Date End Date Status Paxlovid (300/100) 20 x 150 MG & 10 x 100MG 3 tablets Orally Twice a day for 5 days 07/02/2024 Active Encounters Encounter Location Date Provider Diagnosis [facility] [address] [place] [address] 07/02/2024 Maddie Gould Plan Of Treatment Medication Medication Name Sig Start Date Stop Date Notes Paxlovid (300/100) 20 x 150 MG & 10 x 100MG 3 tablets Orally Twice a day for 5 days 07/02/2024 Progress Notes * Shilpi MILLARD MDOB:2005 (19 yo F)Acc No.[id number]:07/02/2024 Patient: Shilpi ARGUETA :2005 A ge:19 Y S ex:Female Address:[address] [place] [address] * Refills Start Paxlovid (300/100) Tablet Therapy Pack, 20 x 150 MG & 10 x 100MG, Orally, 30, 3 tablets, Twice a day, 5 days Subjective: * Chief Complaints: * + covid * Medical History: * Surgical History: * Hospitalization/Major Diagno stic Procedure: * Medications: Objective: * Vitals: * Physical Examination: Assessment: Plan: * Treatment: * Procedure Codes: * true * Date: Generated for Amina nguyen/Berkley/Uriah on: 0 04/25/2025 09:09 AM EDT
--- OUTSIDE RECORDS SUMMARY | 2024-10-16 05:30 | XMS_ITS ---
Author Organization [facility] in [place] Address [address] [place] [address] Care Team Providers Care Insurance Underwriting Assistant Name Role Phone Maddie Gould Primary Care [...] 10/16/2024 Encounters Encounter Location Date Provider Diagnosis [facility] [address] [place] [address] 10/16/2024 Maddie Gould Seasonal allergic rhinitis J30.2 [...] * Shilpi MILLARD MDOB:2005 (19 yo F)Acc No.[id number]:10/16/2024 Progress Note Patient: Shilpi ARGUETA Provider: Stacie Gould ([facility]), CIGARETTE CARTON SEALER :2005 A ge:19 Y S ex:Female Date:10/16/2024 Address:[address] [facility], [id number] Check In:09:26 AM ESTCheck O ut:10:17 AM [...] (Check Out) true * Provider: Stacie Gould ([facility]), CIGARETTE CARTON SEALER Date: 12/16/2023 Generated for Printi ng/Fanaldog/eTransmitting on: 0 04/25/2025 09:08 AM EDT History and Physical Notes * HPI [...]
--- OUTSIDE RECORDS SUMMARY | 2024-10-16 06:57 | XMS_ITS ---
Author Organization The [facility] in [place] Address [address] [place] [address] Care Team Providers Care Audograph Operator Name Role Phone Maddie Gould Primary Care Provider REASON FOR VISIT allergy Encounters Encounter Location Date Provider Diagnosis [facility] [address] [place] [address] 10/16/2024 Maddie Gould Plan Of Treatment No Information Progress Notes * Shilpi MILLARD MDOB:2005 (19 yo F)Acc No.[id number]:10/16/2024 Patient: Ronald Shilpi MARITNEZ :2005 A ge:19 Y S ex:Female Address:[address] [place] [address] * true * Date: Generated for Printi ng/Faxing/eTransmitting on: 0 04/25/2025 09:08 AM EDT
--- OUTSIDE RECORDS SUMMARY | 2025-04-15 13:10 | XMS_ITS | Encounter Summary ---
Author Organization [facility] Address [address] [place] [address] Care Team Providers Care Plate Glass Installer Helper Name Role Phone Unavailable Primary Care Provider Unavailabl e Encounter Details Date Type Department Care Team (Late st Contact Info) Description 04/15/2025 1:10 PM EDT Routine [facility] [address] [place] [address] El Espitia, DO [address] [place]air[place], [id number] Third trimester ; Poor growth affecting management [...] this encounter Progress Notes * Mary Cody, TABLE AND DESK FINISHER - 04/15/2025 1:10 PM EDT Reason for [...] nursing note reviewed. Exam conducted with a byproducts supervisor present. Vitals: Estimated body mass index is [...] mother in first trimester, single or unspecified [id number] Patient is doing well but has complaints [...] Team (Late st Contact Info) Description 04/30/2025 1:30 PM EDT Routine [facility] [address] [place] [address] El Espitia DO [address] [place], [place] [id number] Scheduled Orders Name Type Priority Associated Diagnoses Orde r Schedule CULTURE, GROUP B STREP WITH SUSCEPTIBLITY Lab Routine Third trimester Expected: 04/15/2025, Expires: 04/15/2026 documented as of this encounter Visit Diagnoses Diagnosis Third trimester state, incidental Poor growth affecting management of mother in first trimester, single or unspecified fetus documented in this encounter
--- OUTSIDE RECORDS SUMMARY | 2025-04-22 13:50 | XMS_ITS | Encounter Summary ---
Author Organization [facility] Address [address] [place] [address] Care Team Providers Care Change Management Facilitator Name Role Phone Unavailable Primary Care Provider Unavailabl e Reason for Visit * Reason Comments Routine Visit Encounter Details Date Type Department Care Team (Late st Contact Info) Description 04/22/2025 1:50 PM EDT Routine [facility] [address] [place] [place] [address] Nhung Adamson PA [address] [place], [facility] Third trimester ; 36 weeks gestation of Social History Tobacco Use [...] Sign Reading Time Taken Comments Blood Pressure 110/68 04/22/2025 2:07 PM EDT Pulse - - Temperature - - Respiratory Rate - - Oxygen Saturation - - Inhaled Oxygen Concentration - - Weight 69.4 kg (153 lb) 04/22/2025 2:07 PM EDT Height - - Body Mass Index 26.26 11/27/2023 10:51 AM EST documented in this encounter Progress Notes * GEORGI Presley - 04/22/2025 1:50 PM EDT Reason for Appointment: Patient ID: Shilpi Ware is a 20 y.o. female who presents for Routine Visit Patient presents today for Return OB appointment. MEDICATIONS Current Outpatient Medications Medication Instructions Nzckkh-MeBdvp-XM-DHA w/o Vit A (Prena 1 True) 30-1.4 & 300 MG misc 1 tablet, Oral, Daily RT ALLERGIES Allergies Allergen Reactions Coconut (Cocos Nucifera) [...] reviewed. Vitals: Estimated body mass index is 26.26 kg/m?? as calculated from the following: Height as of 11/27/23: 5' 4 . Weight as of this encounter: 153 lb. BP: 110/68 Patient's last menstrual period was 07/15/2024 (approximate). ASSESSMENT & PLAN ICD-10-CM 1. Third trimester Z34.93 POCT urinalysis dipstick manually resulted 2. 36 weeks gestation of Z3A.36 Return OB: Patient presents today for a routine obstetrics appointment. Patient is currently 36w5d . Patient states she is doing well [...] PM EDT Routine [facility] [address] [place] [place] [address] El Espitia, [address] [place] [address] documented as of this encounter Procedures Procedure Name Priority Date/Time Associated Diagnosis Comments POCT URINALYSIS DIPSTICK Routine 04/22/2025 2:10 PM EDT Third trimester documented in this encounter Results * (ABNORMAL) POCT urinalysis dipstick manually resulted (04/22/2025 2:10 PM EDT) Color, UA Yellow Clarity, UA Clear Glucose, UA Negative Negative - 1999(110) ++++ mg/dL Bilirubin, UA Negative Negative - 4(70) +++ mg/dL Ketones, UA Negative Negative - 160(16) ++++ mg/dL Spec Grav, UA 1.020 1 - 1.03 Blood, UA Positive Negative - 50 Rambo/mcL Comment:moderate pH, UA 7.0 5 - 9 Protein, UA Negative Negative - 2000(20) ++++ mg/dL Urobilinogen, UA 0.2 0.2 - 12 mg/dL Leukocytes, UA Trace Negative - 500+++ Charity/mcL Nitrite, UA Negative Negative - Positive Urine 04/22/2025 2:10 PM EDT Nhung LAUREANO POINT OF CARE TEST ENTER/EDIT OR DERABLES Final Result documented in this encounter Visit Diagnoses Diagnosis Third trimester state, incidental 36 weeks gestation of documented in this encounter
--- OUTSIDE RECORDS SUMMARY | 2025-04-25 09:09 | XMS_ITS | Clinical Summary ---
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 Indications : . Active Active Problems Problem Noted Date Diagnosed Date Poor growth affecting management of mother in third trimester 03/27/2025 Estimated Date of Delivery Comme nts Yes 05/15/2025 Based on Ultraso und Encounters Date Type Department Care Team Description 04/03/2025 Travel 03/27/2025 2:00 PM EDT Telemedicine Maternal- Medicine at [facility] [address] [place] [address] Dwayne Hernandez MD SGA (small for gestational age), 1,000-1,249 grams (Primary Dx); Poor growth affecting management of mother in third trimester, single or unspecified fetus 03/27/2025 Travel 03/26/2025 Telephone [facility] [address] [place] [id number] Melina Head RN 03/25/2025 Abstract Maternal- Medicine at [facility] [address] [place] [id number] Dwayne Hernandez MD 03/24/2025 Orders Only Maternal- Medicine at [facility] [address] [place] [address] Estrellita Weinberg RN SGA (small for gestational age) (Primary Dx) from Last 3 Months Family History Medical History Relation Name Comments Migraines Father Hypertension Maternal Grandfather Heart disease Maternal Grandmother TRAV disease Mother Migraines Mother Asthma Other Diabetes Other Hypertension Other POTS Paternal Aunt Diverticulosis Paternal Grandmother Diverticulosis Paternal Uncle Breast cancer Neg Hx Colon cancer Neg Hx Ovarian cancer Neg Hx Relation Name Status Comments Father Alive Maternal Grandfather Alive Maternal Grandmother Alive Mother Alive Other Paternal Aunt Alive Paternal Grandfather Alive Paternal Grandmother Alive Paternal Uncle Alive Social History Tobacco Use Types Packs/Day Years Used Date Smoking Tobacco: Never Smokeless Tobacco: Never Tobacco Cessation:Counseling Given: Not Answered Alcohol Use Standard Drinks/Week Comments Not Currently 0 (1 standard drink = 0.6 oz pur e alcohol) Hunger Screening Answer Date Recorded Within the past 12 months we worried whether our food would run out before we got money to buy more. Never True 03/27/2025 Within the past 12 months th e food we bought just didn't last and we didn't have money to get more. Never True 03/27/2025 Estimated Date of Delivery Comme nts Yes 05/15/2025 Based on Ultraso und Sex and Gender Information Value Date Recorded Sex Assigned at Female 03/25/2025 6:25 PM EDT Legal Sex Female 8:48 AM EDT Gender Identity Female 03/25/2025 6:25 PM EDT Sexual Orientation Not on file Last Filed Vital Signs Vital Sign Reading Time Taken Comments Blood Pressure 98/64 03/27/2025 2:21 PM EDT Pulse - - Temperature - - Respiratory Rate - - Oxygen Saturation - - Inhaled Oxygen Concentration - - Weight 66.1 kg (145 lb 12.8 oz) 03/27/2025 2:21 PM EDT Height - - Body Mass Index - - Plan of Treatment Health Maintenance Due Date Last Done Comments Chlamydia Screening 2004 Depression Screening 2016 Adult BMI Screening 2022 COVID-19 Vaccine (3 2023-2 5 season) 2024 05/24/2022, 05/02/2022 Pap Smear 2025 Influenza Vaccine 07/21/2025 12/10/2013, , 2004 Tobacco Screening 03/27/2026 03/27/2025 DTaP,Tdap and Td Vaccines (7 - Td or Tdap) 09/01/2026 09/01/2016, 05/01/2008, 03/16/2005, Additional history exists Medical Devices Not on file Procedures Procedure Name Priority Date/Time Associated Diagnosis Comments US MFM OB FOLLOW-UP, 1 FETUS Routine 04/17/2025 3:34 PM EDT SGA (small for gestational age), 1,000-1,249 grams US MFM AMNIOTIC FLUID VOLUME ASSESSMENT Routine 04/03/2025 3:16 PM EDT SGA (small for gestational age), 1,000-1,249 grams US MFM COMPREHENSIVE ANATOMIC SURVEY Routine 03/27/2025 2:17 PM EDT SGA (small for gestational age) from Last 3 Months Results * US MFM OB FOLLOW-UP, 1 FETUS (04/17/2025 3:34 PM EDT) Only the most recent of3 resultswithin the time period is included. Anatomical Region Laterality Modality [facility] Ultrasound 04/17/2025 2:58 PM EDT Narrative 04/18/2025 9:02 AM EDT NAME: FREEMAN ESQUEDA : 2005 SEX: F Accession Number: [id number] ORDERING PHYSICIAN: CHARITY LEONARD REFERRING PHYSICIAN: HO YORK Coding ----- --------- Procedures 22421: Follow-up Ultrasound, per fetus [address]: Doppler velocimetry, ; umbilical artery Indication ----- --------- IUGR-Poor growth History ----- --------- OB History 2. Para 0 [id number] Maternal Assessment ----- --------- Physical Exam Height 163 cm, 5 ft 4 in. Initial weight 53 kg, 117 lb. Initial BMI 20.08 kg/m Method ----- --------- Transabdominal ultrasound examination ----- --------- Clifford . Number of fetuses: 1 Dating ----- --------- LMP on: 07/15/2024 GA by LMP 39 w + 3 d ROXANA by LMP: 04/21/2025 GA by prior assessment 36 w + 0 d ROXANA by prior assessment: 05/15/2025 Previous Ultrasound on: 10/25/2024 Ultrasound examination on: 04/17/2025 GA by U/S based upon: AC, BPD, Femur, HC GA by U/S 33 w + 5 d ROXANA by U/S: 05/31/2025 Assigned: based on stated ROXANA, selected on 03/27/2025 Assigned GA 36 w + 0 d Assigned ROXANA: 05/15/2025 General Evaluation ----- --------- Cardiac activity Present. FHR 133 bpm. Presentation: cephalic Placenta: Placental site: posterior, away from cervical os Umbilical cord: Cord vessels: 3 vessel cord. Insertion site: documented previously Amniotic fluid: Amount of AF: normal amount. MVP 3.7 cm Biometry ----- --------- Standard BPD 85.0 mm 34w 2d 13% Hadlock OFD 103.4 mm 33w 5d 9% Arturo HC 298.3 mm 33w 0d <1% Hadlock AC 304.4 mm 34w 3d 17% Hadlock Femur 64.2 mm 33w 1d 2% Hadlock Humerus 58.0 mm 33w 4d 16% Arturo HC / AC 0.98 EFW 2,300 g 8% Hadlock EFW (lb) 5 lb EFW (oz) 1 oz EFW by: Hadlock ([id number]) Extended Tibia 56.0 mm 32w 6d 5% Artuor Foot 72.7 mm 44% Chitty [employer] Lab Analyst 2.9 mm Head / Face / Neck Cephalic index 0.82 60% Nicolaides Extremities / Bony Struc FL / BPD 0.76 FL / HC 0.22 FL / AC 0.21 Other Structures FHR 133 bpm Anatomy ----- --------- The following structures appear normal: Head/Neck: Cranium. Lateral ventricles. Cavum septi pellucidi. Heart/Thorax: Diaphragm. Abdomen: Stomach. Kidneys. Bladder. The following structures could not be adequately visualized: Heart / Thorax 4-chamber view. Doppler ----- --------- Umbilical Artery: normal PI 0.97 82% Ebbing PS 65.73 cm/s 93% Ebbing TAmax 42.10 cm/s 86% Ebbing MD 25.82 cm/s S / D 2.67 66% Rafael Maternal Structures ----- --------- Uterus Visualized Cervix Suboptimal Right Ovary Not visualized Left Ovary Not visualized Cul de Sac Suboptimal Impression ----- --------- Single viable intrauterine with EFW measuring at the 8%. AC measures at the 17%. The HC measures less than the 3rd percentile for the gestational age but reference biometric measurement within 2 SD of the mean (Arianna and colleagues, 1984). The femur is measuring less than the 3rd percentile. The femur to foot ratio = 0.9 which is within normal limits. Umbilical artery S/D ratio in normal range. Amniotic fluid MVP measures 3.7 cm. Recommendations ----- --------- Please see [facility] recommendations from prior clinical and/or ultrasound report documentation. Subsequent follow up or other follow up as clinically determined by primary OB provider unless otherwise specified by M. Results forwarded to ordering provider so they can follow up with the patient as necessary. Procedure Note Charity Leonard MD - 04/18/2025 NAME: FREEMAN ESQUEDA : 2005 SEX: F Accession Number: [id number] ORDERING PHYSICIAN: CHARITY LEONARD REFERRING PHYSICIAN: HO YORK Coding ----- --------- Procedures 61151: Follow-up Ultrasound, per fetus [address]990: Doppler velocimetry, ; umbilical artery Indication ----- --------- IUGR-Poor growth History ----- --------- OB History 2. Para 0 [id number] Maternal Assessment ----- --------- Physical Exam Height 163 cm, 5 ft 4 in. Initial weight 53 kg, 117 lb.Initial BMI 20.08 kg/m Method ----- --------- Transabdominal ultrasound examination ----- --------- Clifford . Number of fetuses: 1 Dating ----- --------- LMP on: 07/15/2024 GA by LMP 39 w + 3 d ROXANA by LMP: 04/21/2025 GA by prior assessment 36 w + 0 d ROXANA by prior assessment: 05/15/2025 Previous Ultrasound on: 10/25/2024 Ultrasound examination on: 04/17/2025 GA by U/S based upon: AC, BPD, Femur, HC GA by U/S 33 w + 5 d ROXANA by U/S: 05/31/2025 Assigned: based on stated ORXANA, selected on 03/27/2025 Assigned GA 36 w + 0 d Assigned ROXANA: 05/15/2025 General Evaluation ----- --------- Cardiac activity Present. FHR 133 bpm. Presentation: cephalic Placenta: Placental site: posterior, away from cervical os Umbilical cord: Cord vessels: 3 vessel cord. Insertion site: documentedpreviously Amniotic fluid: Amount of AF: normal amount. MVP 3.7 cm Biometry ----- --------- Standard BPD 85.0 mm 34w 2d 13% Hadlock OFD 103.4 mm 33w 5d 9% Arturo HC 298.3 mm 33w 0d <1% Hadlock AC 304.4 mm 34w 3d 17% Hadlock Femur 64.2 mm 33w 1d 2% Hadlock Humerus 58.0 mm 33w 4d 16% Arturo HC / AC 0.98 EFW 2,300 g 8% Hadlock EFW (lb) 5 lb EFW (oz) 1 oz EFW by: Jadiel ([id number]) Extended Tibia 56.0 mm 32w 6d 5% Arturo Foot 72.7 mm 44% Ch[employer] Lab Analyst 2.9 mm Head / Face / Neck Cephalic index 0.82 60% Nicolaides Extremities / Bony Struc FL / BPD 0.76 FL / HC 0.22 FL / AC 0.21 Other Structures FHR 133 bpm Anatomy ----- --------- The following structures appear normal: Head/Neck: Cranium. Lateral ventricles. Cavum septi pellucidi. Heart/Thorax: Diaphragm. Abdomen: Stomach. Kidneys. Bladder. The following structures could not be adequately visualized: Heart / Thorax 4-chamber view. Doppler ----- --------- Umbilical Artery: normal PI 0.97 82% Ebbing PS 65.73 cm/s 93% Ebbing TAmax 42.10 cm/s 86% Ebbing MD 25.82 cm/s S / D 2.67 66% Rafael Maternal Structures ----- --------- Uterus Visualized Cervix Suboptimal Right Ovary Not visualized Left Ovary Not visualized Cul de Sac Suboptimal Impression ----- --------- Single viable intrauterine with EFW measuring at the 8%. FetalAC measures at the 17%. The HC measures less than the 3rd percentile for the gestational agebut reference biometric measurement within 2 SD of the mean (Arianna and colleagues, 1984). The femur is measuring less than the 3rd percentile. The femur to footratio = 0.9 which is within normal limits. Umbilical artery S/D ratio in normal range. Amniotic fluid MVP measures 3.7 cm. Recommendations ----- --------- Please see [facility] recommendations from prior clinical and/or ultrasoundreport documentation. Subsequent follow up or other follow up as clinically determined byprimary OB provider unless otherwise specified by [facility]. Results forwarded to ordering provider so they can follow up with thepatient as necessary. us Charity Leonard MD G ORDERABLES Final Re sult from Last [address] [place] [address] [place] [address] [employer]
--- OUTSIDE RECORDS SUMMARY | 2025-04-25 09:09 | XMS_ITS | Encounter Summary ---
Author Organization [facility] Address [address] [place] [address] Care Team Providers Care Tv Host Name Role Phone Unavailable Primary Care Provider Unavailabl e Encounter Details Date Type Department Care Team (Late st Contact Info) Description 04/23/2025 Abstract [facility] [address] [address] Reyna Leal LPN Social History Tobacco Use Types Packs/Day Years [...] Routine [facility] [address] [place] [address] El Espitia, DO [address] [place] [address] documented as of this encounter Visit Diagnoses Not on filedocumented in this encounter
--- OUTSIDE RECORDS SUMMARY | 2025-04-25 09:09 | XMS_ITS | Encounter Summary ---
Author Organization [facility] Address [address] [place] [address] Care Team Providers Care Metal Molder Name Role Phone Unavailable Primary Care Provider Unavailabl e Encounter Details Date Type Department Care Team (Late st Contact Info) Description 03/10/2025 Results Follow-Up [facility] [address] [place] [address] Mary Wiggins LPN [address] [place], [place] [id number] Social History Tobacco Use Types Packs/Day Years [...] notified * Result Encounter Note - Mary Wiggins LPN - 03/10/2025 4:37 PM EDT Attempted to call pt but she did not answer and mailbox was full. Will try again documented in this encounter Plan of Treatment Upcoming Encounters Date Type Department Care Team (Late st Contact Info) Description 04/30/2025 1:30 PM EDT Routine [facility] [address] [place] [address] El Espitia, [address] [place] [address] documented as of this encounter Visit Diagnoses Not on filedocumented in this encounter
--- OUTSIDE RECORDS SUMMARY | 2025-04-25 09:09 | XMS_ITS | Clinical Summary ---
Author Organization [facility] Healthcare Address [address] [place] [address] Care Team Providers Care Film Recordist Name Role Phone Unavailable Primary Care Provider Unavailabl e Allergies Active Allergy Reactions Criticality Noted Date Comments Coconut (Cocos Nucifera) GI intolerance Medium 04/18/2024 Other Reaction(s): GI Disturbance Iron Hives Medium 05/05/2022 Latex Rash,Unknown,Hives Low 09/24/2019 Other Unknown 09/24/2019 METAL Medications Ajkkjm-YoLqca-TT -DHA w/o Vit A (Prena 1 True) 30-1.4 & 300 MG misc Take 1 tablet by mouth in the morning. Active Active Problems Problem Noted Date Diagnosed Date Near syncope 12/30/2024 20 weeks gestation of 12/30/2024 15 weeks gestation of 11/26/2024 Estimated Date of Delivery Comme nts Yes 05/15/2025 Based on Ultraso und Encounters Date Type Department Care Team Description 04/23/[address] [facility] [address] [place] [address] Reyna Leal LPN 04/22/2025 1:50 PM EDT Routine [facility] [address] [place] [address] Nhung Adamson PA Third trimester ; 36 weeks gestation of 04/22/2025 Bamboo flowsheet [facility] [address] [facility] [place] [address] Nhung Adamson PA 04/15/2025 1:10 PM EDT Routine [facility] [address] [facility] [place] [address] Ho Espitia, Third trimester ; Poor growth affecting management of mother in first trimester, single or unspecified fetus 04/15/2025 Bamboo flowsheet [facility] [address] [facility] [place] [address] Ho Espitia, 04/09/2025 Abstract [facility] [address] [facility] [place] [address] Ho Espitia, DO 04/08/2025 10:50 AM EDT Routine [facility] [address] [facility] [place] [address] Nhung Adamson PA Third trimester ; 34 weeks gestation of 04/08/2025 Clinisync Result Encounter NOMS External Department Unsolicited Ho Espitia, DO 04/08/2025 Bamboo flowsheet [facility] [address] [facility] [place] [address] Nhung Adamson PA 04/04/2025 Abstract [facility] [address] [facility] [place] [address] Sofy Huntley MA 04/03/2025 Abstract [facility] [address] [facility] [place] [address] Ho Espitia, 03/27/2025 Abstract [facility] [address] [facility] [place] [address] Ho Espitia, DO 03/27/2025 Abstract [facility] [address] [facility] [place] [address] Ho Espitia, DO 03/25/2025 Clinisync Result Encounter NOMS External Department Unsolicited Ho Espitia, DO 03/25/[address] [facility] [address] [place] [address] [place] [phone] Ho Espitia, DO 03/20/2025 11:30 AM EDT Ancillary Procedure [facility] [address] [place] [address] [place] [address] size inconsistent with dates 03/20/2025 10:30 AM EDT [facility]ine [facility] [address] [facility] [place] [address] Ho Espitia, Third trimester ; 32 weeks gestation of ; Small for gestational age 0503/20/[address] [facility] [address] [facility] [place] [address] Ho Espitia, 03/19/[address] [facility] [address] [place] [address] [place] [address] Fidelia Bowling, DANA 03/18/[address] [facility] [address] [place] [address] [place] [phone] Fidelia Bowling, DANA 03/10/2025 Results Follow-Up [facility] [address] [facility] [place] [address] Mray Wiggins LPN 03/06/2025 10:50 AM EDT Routine [facility] [address] [facility] [place] [address] Ho Espitia, Third trimester ; 30 weeks gestation of ; Vaginal discharge; size inconsistent with dates 03/06/2025 10:00 AM EDT Ancillary Procedure [facility] [address] [place] [address] [place] [address] Encounter for follow-up ultrasound of anatomy 02/20/2025 10:20 AM EDT Routine [facility] [address] [place] [address] [place] [address] Nhung Adamson PA Third trimester ; 28 weeks gestation of ; Screen for STD (sexually transmitted disease); Encounter for follow-up ultrasound of anatomy 02/20/2025 Bamboo flowsheet NOM[facility] [address] [place] [address] Nhung Adamson PA 02/13/2025 Clinisync Result Encounter NOMS External Department Unsolicited Ho Espitia, DO 02/13/2025 Telephone [facility] [address] [place] [address] Ho Espitia, 01/30/2025 Clinisync Result Encounter NOMS External Department Unsolicited Ho Espitia, DO 01/30/2025 Clinisync Result Encounter NOMS External Department Unsolicited Ho Espitia, DO 01/23/2025 10:20 AM EST Routine [facility]OM[facility] [address] [place] [address] Ho Espitia, 24 weeks gestation of ; Third trimester ; Diabetes mellitus screening 01/23/2025 Bamboo flowsheet [facility]OM[facility] [address] [place] [address] Ho Espitia DO from Last 3 Months [...] (153 lb) 04/22/2025 2:07 PM EDT Height 162.6 cm (5' 4 ) 11/27/2023 10:51 AM EST Body Mass Index 26.26 11/27/2023 10:51 AM EST Plan of Treatment Upcoming Encounters Date Type Department Care Team (Late st Contact Info) Description 04/30/2025 1:30 PM EDT Routine [facility] [address] [facility] [place] [address] Ho Espitia, DO [address] [place] [address] Dr [place]aira [place], [place] [id number] Health Maintenance Due Date Last Done Comments Influenza Vaccine (Season Ended) 2025 12/10/2013, 12/11/2008, 2004 Procedures Procedure Name Priority Date/Time Associated Diagnosis Comments POCT URINALYSIS DIPSTICK Routine 04/22/2025 2:10 PM EDT Third trimester US OB BPP W NON-STRESS 04/08/2025 4:40 [...] 02/13/2025 3:30 PM EDT TBH UA (CLEAN/CATCH) GRUBBER/MICRO IF IND. Routine 02/13/2025 3:30 PM EDT CA ECHO DOPPLER COMPLETE 01/30/2025 8:11 PM EDT GLUCOSE 1 HOUR Routine 01/30/2025 11:49 AM EDT ALL CBC WITH AUTO DIFF Routine 11:49 AM EDT POCT URINALYSIS DIPSTICK Routine 01/23/2025 10:53 AM EST 24 weeks gestation of Third trimester from Last 3 Months Results * (ABNORMAL) POCT urinalysis dipstick manually resulted (04/22/2025 2:10 PM EDT) Only the most recent of5 resultswithin the time period is included. Color, UA Yellow Clarity, UA Clear Glucose, UA Negative Negative - 1999(110) ++++ mg/dL Bilirubin, UA Negative Negative - 4(70) +++ mg/dL Ketones, UA Negative Negative - 160(16) ++++ mg/dL Spec Grav, UA 1.020 1 - 1.03 Blood, UA Positive Negative - 50 Rambo/mcL Comment:moderate pH, UA 7.0 5 - 9 Protein, UA Negative Negative - 1999(20) ++++ mg/dL Urobilinogen, UA 0.2 0.2 - 12 mg/dL Leukocytes, UA Trace Negative - 500+++ Charity/mcL Nitrite, UA Negative Negative - Positive Urine 04/22/2025 2:10 PM EDT Nhung LAUREANO POINT OF CARE TEST ENTER/EDIT OR DERABLES Final Result * US OB BPP W NON-STRESS (04/08/2025 4:40 PM EDT) Only the most recent of2 resultswithin the time period is included. Anatomical Region Laterality Modality Other 04/08/2025 4:40 PM EDT Narrative 04/08/2025 4:43 [place] [address] Ultrasound Report Signed Patient: YIN MILLARD MR#: [id number] : 2005 Acct:[id number] Age/Sex: 20 / F ADM Date: 04/08/25 Loc: US Attending Dr: Ho Espitia D.O. Ordering Physician: Ho Espitia D.O. Date of Service: 04/08/25 Procedure(s): US OB BPP w non-stress Accession Number(s): [id number] cc: BUCKY COREA ; Ho Espitia D.O. [address] [address] Patient Name: YIN MILLARD MRN: [id number] date: 2005 Sex: F Assigned Patient Location: [facility] Current Patient Location: Accession/Order Number: [id number] Exam Date: 04/08/2025 16:39 Report Date: 04/08/2025 [...] Soto M.D. 04/08/2025 4:40 PM Dictation Location: [place] [address] Electronically authenticated by: [id number] Y Date: 04/08/2025 16:40 Dictated By: Franck Soto D.O. Signed By: 04/08/25 1643 DD/ 1640 TD/TT: Section Beamer: Procedure Note Radiology, Radiologist, MD - 04/08/2025 [place] [address] Ultrasound Report Signed Patient: YIN MILLARD MMR#: [id number] : 2005Acct:[id number] Age/Sex: 20 / FADM Date: 04/08/25 Loc: US Attending Dr: Ho Espitia D.O. Ordering Physician: Ho Espitia D.O. Date of Service: 04/08/25 Procedure(s): US OB BPP w non-stress Accession Number(s): [id number] cc: BUCKY COREA ; Ho Espitia D.O. [facility] [place] [id number] Patient Name: YIN MILLARD MRN: [id number] date: 2005 Sex: F Assigned Patient Location: [facility] Current Patient Location: Accession/Order Number: [id number] Exam Date: 04/08/2025 16:39 Report Date: 04/08/2025 [...] Soto M.D. 04/08/2025 4:40 PM Dictation Location: [place] [address] Electronically authenticated by: [id number] Y Date: 6:40 Dictated By: Franck Soto D.O. Signed By:04/08/25 1643 DD/ 1640 TD/TT: Section Beamer: us Ho Nupur DO [facility] IMAGING Final Result * US OB follow up [...] II, MD, PHD at 23-Mar-2025 08:55:00 PM [facility] Procedure Note Arturo Puente MD - 03/23/2025 EXAM: US OB FOLLOW [...] gestationalage. Interpreted by: Electronically signed by ARTURO PUENTE II, MD, PHD [id number] 08:55:00 PM [facility] us Ho Nupur DO [facility] OB US PROCEDURES Final Resul t * (ABNORMAL) RECURRENT VAGINITIS (HTRX) (03/06/2025 11:23 AM EDT) Only the most recent of2 resultswithin the time period is included. Pathologist [facility] ATOPOBIUM VAGINAE 28.768(A) 19.961 - 24.689 ppm 03/07/2025 7:45 AM EDT [facility] ATOPOBIUM VAGINAE Detected(A) 19.961 - 24.689 ppm 03/07/2025 7:45 AM EDT [facility] BVAB 2,3 (BACTERIAL VAGINOSIS ASSOCIATED BACTERIA 2, 3); MOBILUNCUS SPP 0.000 19.961 - 24.689 ppm 03/07/2025 7:45 AM EDT [facility] BVAB 2,3 (BACTERIAL VAGINOSIS ASSOCIATED BACTERIA 2, 3); MOBILUNCUS SPP Not Detected 19.961 - 24.689 ppm 03/07/2025 7:45 AM EDT [facility] TYLER ALBICANS, PARAPSILOSIS, TROPICALIS 0.000 19.961 - 30.770 ppm 03/07/2025 7:45 AM EDT [facility] TYLER ALBICANS, PARAPSILOSIS, TROPICALIS Not Detected 19.961 - 30.770 ppm 03/07/2025 7:45 AM EDT [facility] TYLER GLABRATA 0.000 23.000 - 32.138 ppm 03/07/2025 7:45 AM EDT [facility] TYLER GLABRATA Not Detected 23.000 - 32.138 ppm 03/07/2025 7:45 AM EDT [facility] TYLER KRUSEI 0.000 23.000 - 32.271 ppm 03/07/2025 7:45 AM EDT [facility] TYLER KRUSEI Not Detected 23.000 - 32.271 ppm 03/07/2025 7:45 AM EDT [facility] CHLAMYDIA TRACHOMATIS 0.000 23.000 - 31.467 ppm 03/07/2025 7:45 AM EDT [facility] CHLAMYDIA TRACHOMATIS Not Detected 23.000 - 31.467 ppm 03/07/2025 7:45 AM EDT [facility] GARDNERELLA VAGINALIS 0.000 19.961 - 24.689 ppm 03/07/2025 7:45 AM EDT [facility] GARDNERELLA VAGINALIS Not Detected 19.961 - 24.689 ppm 03/07/2025 7:45 AM EDT [facility] MEGASPHAERA (TYPES 1, 2) 0.000 19.961 - 24.689 ppm 03/07/2025 7:45 AM EDT [facility] MEGASPHAERA (TYPES 1, 2) Not Detected 19.961 - 24.689 ppm 03/07/2025 7:45 AM EDT [facility] NEISSERIA GONORRHOEAE 0.000 23.000 - 32.117 ppm 03/07/2025 7:45 AM EDT [facility] NEISSERIA GONORRHOEAE Not Detected 23.000 - 32.117 ppm 03/07/2025 7:45 AM EDT [facility] TRICHOMONAS VAGINALIS 0.000 23.000 - 32.119 ppm 03/07/2025 7:45 AM EDT [facility] TRICHOMONAS VAGINALIS Not Detected 23.000 - 32.119 ppm 03/07/2025 7:45 AM EDT [facility] MYCOPLASMA GENITALIUM 0.000 19.961 - 24.689 ppm 03/07/2025 7:45 AM EDT [facility] MYCOPLASMA GENITALIUM Not Detected 19.961 - 24.689 ppm 03/07/2025 7:45 AM EDT [facility] Tissue 03/06/2025 11:2 3 AM EDT 03/07/2025 2:11 AM EDT us Ho Espitia DO LAB BLOOD ORDERABLES Final Resul t [facility] [address] [place] [address] * US OB limited 1+ fetuses (03/06/2025 [...] II, MD, PHD at 08-Mar-2025 06:48:44 PM [facility] Procedure Note Arturo Puente MD - 03/08/2025 EXAM: US OB LIMITED [...] signed by ARTURO PUENTE II, MD, PHD [id number] 06:48:44 PM [facility] us Nhung LAUREANO IMG OB US [...] - 02/13/2025 4:14 PM EDT us Ho Nupur DO [facility] Final Result [facility] * (ABNORMAL) [facility] UA (CLEAN/CATCH) GRUBBER/MICRO IF IND. (02/13/2025 3:30 PM EDT) COLOR [...] Narrative CLINISYNC - 02/13/2025 4:14 PM EDT Ho Boudreauxo DO [facility] Final Result Performing Organization Address [facility] Co de Phone Number [facility] * CA ECHO DOPPLER COMPLETE (01/30/2025 8:11 PM EDT) Anatomical Region Laterality Modality Other 01/30/2025 8:11 PM EDT Narrative 01/30/2025 8:12 [place] [address] Cardiology Report Signed Patient: YIN MILLARD MR#: [id number] : 2005 Acct:[id number] Age/Sex: 19 / F ADM Date: 01/30/25 Loc: CARD Attending Dr: Ho Espitia D.O. Ordering Physician: Ho Espitia D.O. Date of Service: 01/30/25 Procedure(s): CA echo doppler complete Accession Number(s): [id number] cc: BUCKY COREA ; Ho Espitia D.O. Patient Name: YIN MILLARD MR#: [id number] : 2005 Exam Date: 01/30/2025 Ordering Doctor: [...] AMBROSIO Signed By: 01/30/252011 DD/ 10 TD/TT: Section Beamer: Procedure Note Radiology, Radiologist, MD - 01/30/2025 [place] [address] Cardiology Report Signed Patient: YIN MILLARD [facility]#: [id number] : 2005Acct:[id number] Age/Sex: 19 FADM Date: 01/30/25 Loc: CARD Attending Dr: Ho Espitia D.O. Ordering Physician: Ho Espitia D.O. Date of Service: 01/30/25 Procedure(s): CA echo doppler complete Accession Number(s): [id number] cc: BUCKY COREA ; Ho Espitia D.O. Patient Name: IYN MILLARD MR#: [id number] : 2005 Exam Date: 01/30/2025 Ordering Doctor: [...] HERNANDO AMBROSIO Signed By:01/30/252011 DD/ 10 TD/TT: Section Beamer: us Ho Nupur DO [facility] Final Result * GLUCOSE 1 HOUR (01/30/2025 11:49 AM EDT) GLUCOSE 1 HOUR 91 <130 mg/dL [facility] 01/30/2025 11:4 9 AM EDT 01/30/2025 11:50 AM EDT Narrative CLINISYNC - 01/30/2025 12:24 PM EDT Adsamey Nupur DO LAB BLOOD ORDERABLES Final Resul t [facility] * (ABNORMAL) ALL CBC WITH AUTO DIFF (01/30/2025 11:49 AM EDT) [facility] WBC 10.2 4.0 - 11.0 10 [...] EDT Ho Espitia DO CLINISYNC Final Result CLINARLINENC [facility] from Last 3 Months Insurance [employer]
--- OUTSIDE RECORDS SUMMARY | 2025-04-25 09:09 | XMS_ITS | Patient Health Record ---
Author Organization [facility] in [place] Address [address] [place] [address] Care Team Providers Care Social Media Senior Associate Name Role Phone Maddie Corea Primary Care Provider Allergies No Known Allergies Results Component Value Reference Range Notes PREG QUANT HCG Reviewed date:06/10/2024 02:46:32 PM Interpretation: Performing Lab: Notes/Report: [facility] , HCG Quantitative 69 5-50 0.2-1 WEEK 50-500 1-2 WEEKS 100-5,000 2-3 WEEKS 500-10,000 3-4 WEEKS 1,000-50,000 4-5 WEEKS 10,000-100,000 5-6 WEEKS 15,000-200,000 6-8 WEEKS 10,000-100,000 2-3 MONTHS Performing Lab: see note ML - [facility] LB PREG QUANT HCG Reviewed date:06/13/2024 11:42:35 AM Interpretation: Performing Lab: Notes/Report: [facility] , HCG Quantitative 42 5-50 0.2-1 WEEK 50-500 1-2 WEEKS 100-5,000 2-3 WEEKS 500-10,000 3-4 WEEKS 1,000-50,000 4-5 WEEKS 10,000-100,000 5-6 WEEKS 15,000-200,000 6-8 WEEKS 10,000-100,000 2-3 MONTHS Performing Lab: see note ML - [facility] LB PREG QUANT HCG Reviewed date:06/26/2024 08:36:19 AM Interpretation: Performing Lab: Notes/Report: [facility] , HCG Quantitative <1 5-50 0.2-1 WEEK 50-500 1-2 WEEKS 100-5,000 2-3 WEEKS 500-10,000 3-4 WEEKS 1,000-50,000 4-5 WEEKS 10,000-100,000 5-6 WEEKS 15,000-200,000 6-8 WEEKS 10,000-100,000 2-3 MONTHS Performing Lab: see note ML - [facility] LB Anti-Mullerian Hormone (AMH) Reviewed date:07/29/2024 10:45:14 AM Interpretation: Performing Lab: Notes/Report: [facility] , Anti-Mullerian Hormone (AMH) 2.08 . ng/mL For assays employing antibodies, the possibility exists for interference by heterophile antibodies in the samples.1 1.Luis E Nunes Interferences in Immunoassays - still a threat. Clin. Chem. 2000; 46: 9642-9421. This test was developed and its performance characteristics determined by [facility]. It has not been cleared or approved by the Food and Drug Administration. Reference Range: Females 20 - 25y: 1.23 - 11.51 Median 4.70 AMH concentrations of >= 1.06 ng/mL is correlated with a better response to ovarian stimulation, produced more retrievable oocytes and higher odds of live according to Kileyer et al. Fertility and Sterility. 2010: 94:6757-7828. The current AMH test method correlates with the study method with a slope of 0.94. Females at risk of ovarian hyperstimulation syndrome or polycystic ovarian syndrome (PCOS) may exhibit elevated serum AMH concentrations. AMH levels from PCOS patients may be 2 to 5 fold higher than age-appropriate reference interval values. Granulosa cell tumors of the ovary may secrete AMH along with other tumor markers. Elevated AMH is not specific for malignancy, and the assay should not be used exclusively to diagnose or exclude an AMH-secreting ovarian tumor. Performed at: [facility] [address] [place] [id number] Slide Fastener Chain Assembler: Aubrey Tompkins MD, Phone: [phone] Performing Lab: see note LC - [facility] LB PREG QUANT HCG Reviewed date:09/16/2024 08:22:15 AM Interpretation: Performing Lab: Notes/Report: [facility] , HCG Quantitative 8309 5-50 0.2-1 WEEK 50-500 1-2 WEEKS 100-5,000 2-3 WEEKS 500-10,000 3-4 WEEKS 1,000-50,000 4-5 WEEKS 10,000-100,000 5-6 WEEKS 15,000-200,000 6-8 WEEKS 10,000-100,000 2-3 MONTHS Performing Lab: see note ML - [facility] LB US OB transvaginal Reviewed date:10/28/2024 12:22:27 PM Interpretation: Performing Lab: Notes/Report: Source Facility: [place] [address] Ultrasound Report Signed Patient: YIN MILLARD MR#: [id number] : 2005 Acct:[id number] Age/Sex: 19 / F ADM Date: 10/25/24 Loc: [facility] Attending Dr: Ho Espitia D.O. Ordering Physician: Ho Espitia D.O. Date of Service: 10/25/24 Procedure(s): US OB transvaginal Accession Number(s): [id number] cc: MADDIE COREA ; Ho Espitia D.O. [place] [address] Patient Name: YIN MILLARD MRN: [id number] date: 2005 Sex: F Assigned Patient Location: [facility] Current Patient Location: Accession/Order Number: [id number] Exam Date: 10/25/2024 10:10 Report Date: 10/26/2024 [...] M.D. Signed By: 10/26/24455 DD/ 3 TD/TT: Kettle Tender: [place] [address] Ultrasound Report Signed Patient: YIN MILLARD MR#: [id number] : 2005 Acct:[id number] Age/Sex: 19 / F ADM Date: 10/25/24 Loc: [facility] Attending Dr: Ho Espitia D.O. Ordering Physician: Ho Espitia D.O. Date of Service: 10/25/24 Procedure(s): US OB transvaginal Accession Number(s): [id number] cc: MADDIE COREA ; Ho Espitia D.O. [place] [address] Patient Name: YIN MILLARD MRN: [id number] date: 2005 Sex: F Assigned Patient Location: [facility] Current Patient Location: Accession/Order Numb er: [id number] Exam Date: 10:10 Report Date: 10/26/2024 04:54 [...] M.D. Signed By: 10/26/24455 DD/ 3 TD/TT: Kettle Tender: CBC AUTO DIFF Reviewed date:10/29/2024 11:42:09 AM Interpretation: Performing Lab: Notes/Report: [facility] , White Blood Count 12.2 [...] Performing Lab: see note ML - [facility] LB RUBELLA AB IGG Reviewed date:10/30/2024 10:05:33 AM Interpretation: Performing Lab: Notes/Report: [facility] , Rubella Antibodies, IgG 1.57 Immune > 0.99 index Non-immune <0.90 Equivocal 0.90 - 0.99 Immune >0.99 Performing Lab: see note - [facility] Type and Screen Reviewed date:10/29/2024 11:42:09 AM Interpretation: Performing Lab: Notes/Report: [facility] , Blood Type O Positive Antibody Screen NEGATIVE HIV Ab/p24 Ag with Reflex Reviewed date:10/30/2024 10:05:33 AM Interpretation: Performing Lab: Notes/Report: [facility] , HIV Ab/p24 Ag Screen Non Reactive Non Reactive HIV-1/HIV-2 antibodies and HIV-1 p24 antigen were NOT detected. There is no laboratory evidence of HIV infection. HIV Negative Performed at: [address] [id number] Slide Fastener Chain Assembler: Ney Hurley PhD, Phone: [phone] Performing Lab: see note [facility] Rapid Plasma Reagin, Quant Reviewed date:10/31/2024 09:52:05 AM Interpretation: Performing Lab: Notes/Report: [facility] , Rapid Plasma Reagin, Quant Non Reactive NonRea<1:1 titer Please Note: This test does not meet current guidelines for screening and diagnosis of syphilis. This test is intended for following treatment response in patients being treated for syphilis infection. To screen for syphilis infection, a reflex cascade that includes both RPR and a treponema-specific assay should be utilized, such as Treponema pallidum (Syphilis) Screening [place] (077486) or Rapid Plasma Reagin (RPR) Test With Reflex to Quantitative RPR and Confirmatory Treponema pallidum Antibodies (405328). Performed at: [address] [id number] Slide Fastener Chain Assembler: Ney Hurley PhD, Phone: [phone] Performing Lab: see note [facility] HCV Antibody RFX to Quant PC R Reviewed date:10/30/2024 10:05:33 AM Interpretation: Performing Lab: Notes/Report: [facility] , HCV Ab Non Reactive Non Reactive Interpretation: Comment . Not infected with HCV unless early or acute infection is suspected (which may be delayed in an immunocompromised individual), or other evidence exists to indicate HCV infection. Performing Lab: see note [facility] HBsAg Screen Reviewed date:10/31/2024 09:52:05 AM Interpretation: Performing Lab: Notes/Report: [facility] , HBsAg Screen Negative Negative Performed at: [facility] [address] [place] [id number] Slide Fastener Chain Assembler: Ney Hurley PhD, Phone: [phone] Performing Lab: see note [facility] LB Urine Culture, Routine Reviewed date:10/31/2024 09:52:05 [...] Culture, Routine Urine Culture, Routine Performed at: [facility] Urine Culture, Routine Urine Culture, Routine [address] [place] [id number] Urine Culture, Routine Urine Culture, Routine Slide Fastener Chain Assembler: Russ Hurley PhD, Phone: [phone] Urine Culture, Routine Performing Lab: see note [facility] LB SEE REPORT - Wax Room Supervisor Id information not found for OBX-specific writer producer legend AFP Tetra Reviewed date:11/29/2024 01:15:23 PM Interpretation: Performing Lab: Notes/Report: N [id number] N ULTRASOUND [id number] 1 11 N 1 118 N N [...] ng/mL AFP MoM 1.55 . hCG Value 67545 . mIU/mL hCG MoM 1.83 . uE3 Value 0.76 . ng/mL uE3 MoM 0.89 . CANDI Value 302.73 . pg/mL CADNI MoM 1.53 . OSBR Risk 1 IN 2393 . DSR (Second Trimester) 1 IN 5462 . DSR (By Age) 1 IN 1146 . T18 Risk Not increased . T18 (By Age) 1:4466 . Interpretation Comment . Interpretation: Screen Negative This result is screen negative for OSB, Down Syndrome and Trisomy 18. The AFP MoM and patient specific risks calculated are based on the gestational age and the clinical information provided. This test can identify up to 80% of open neural tube defects. Closed neural tube defects and some open defects may not be detected by this test. The combination of maternal age, AFP, hCG, uE3, and CANDI identifies 75-80% of Down Syndrome. The combination of maternal age, AFP, hCG and uE3 identifies 60% of Trisomy 18 pregnancies. The [employer] recommends amniocentesis be offered to women age 35 and older. Recalculations are not recommended when gestational dating by LMP and ultrasound are within 10 days. Comments: Comment . Erin Rojo, Ph.D., [facility] Director References: Available Upon Request. Multiples Of Median Cutoffs Abbreviation Definitions For AFP Elevations IDD- Insulin Dep Diabetes Clifford 2.5 Black 2.8 OSBR- Open Spina Bifida IDD 2.0 Twins 4.5 Risk DSR Cutoff 1:270 DSR- Down Syndrome Risk T18 Cutoff 1:100 T18- Trisomy 18 For further inquiries contact [facility] at [phone]. This test was developed and its performance characteristics determined by [employer]. It has not been cleared or approved by the Food and Drug Administration. Performed at: [facility] [place], [place] [id number] Slide Fastener Chain Assembler: Anastasia Ibrahim [facility], Phone: [phone] Performing Lab: see note - [facility] LB TSH Reviewed date:01/17/2025 01:51:08 PM Interpretation: Performing Lab: Notes/Report: [facility] , Thyroid Stimulating Hormone 2.105 0.358-3.740 uIU/mL Performing Lab: see note ML - [facility] LB Glucose 1 Hour Reviewed date:01/30/2025 01:26:23 PM Interpretation: Performing Lab: Notes/Report: [facility] , Glucose 1 Hour 91 <130 mg/dL Performing Lab: see note ML - [facility] LB UA (CLEAN or CATCH) BACKING IN MACHINE TENDER or M ICRO IF IND. Reviewed date:02/14/2025 12:03:32 PM Interpretation: Performing Lab: Notes/Report: [facility] , Color Urine LT. YELLOW YELLOW Clarity Urine CLOUDY CLEAR Specific [place] Urine 1.010 1.005-1.025 pH Urine 7.0 5.0-9.0 Protein Urine NEGATIVE NEG/TRACE mg/dL Glucose Urine UA NEGATIVE NEGATIVE mg/dL Bilirubin Urine NEGATIVE NEGATIVE Ketones Urine NEGATIVE NEGATIVE mg/dL Blood Urine LARGE NEGATIVE Nitrite Urine NEGATIVE NEGATIVE Urobilinogen Urine 0.2 0.2-1.0 EU/dL Leukocyte Esterase Urine TRACE NEGATIVE Urine Microscopic Indicated YES Performing Lab: see note - [facility] LB Urine Culture, Routine Reviewed date:02/23/2025 [...] Culture, Routine Urine Culture, Routine Performed at: [facility] Urine Culture, Routine Urine Culture, Routine [address] [place] [id number] Urine Culture, Routine Urine Culture, Routine Slide Fastener Chain Assembler: Russ Hurley PhD, Phone: [phone] Urine Culture, Routine Performing Lab: see note - [facility] LB SEE REPORT - Wax Room Supervisor Id information not found for OBX-specific writer producer legend US OB BPP w non-stress Reviewed date:03/27/2025 01:55:49 PM Interpretation: Performing Lab: Notes/Report: Source Facility: [facility] [place] [address] [place] [address] Ultrasound Report Signed Patient: YIN MILLARD MR#: [id number] : 2005 Acct:[id number] Age/Sex: 20 / F ADM Date: 03/25/25 [facility] 250[facility]: Ho Espitia D.O. Ordering Physician: Ho Espitia D.O. Date of Service: 03/25/25 Procedure(s): US OB BPP w non-stress Accession Number(s): [id number] cc: MADDIE COREA ; Ho Espitia D.O. [address] [address] Patient Name: YIN MILLARD MRN: [id number] date: 2005 Sex: F Assigned Patient [facility] Current Patient Location: [facility] Accession/Order Number: [id number] Exam Date: 03/25/2025 11:31 Report Date: 03/25/2025 [...] Jr., D.O. 03/25/2025 11:32 AM Dictation Location: [place] [address] Electronically authenticated by: [id number] Y Date: 03/25/2025 11:32 Dictated By: Juan Ramon Lopez M.D. Signed By: 03/25/25 1135 DD/ 1132 TD/TT: Kettle Tender: [place] [address] Ultrasound Report Signed Patient: YIN MILLARD MR#: [id number] : 2005 Acct:[id number] Age/Sex: 20 / F ADM Date: 03/25/25 Loc: [facility] 250-[address]: Ho Espitia D.O. Ordering Physician: Ho Espitia D.O. Date of Service: 03/25/25 Procedure(s): US OB BPP w non-stress Accession Number(s): [id number] cc: MADDIE COREA ; Ho Espitia D.O. The [address] [address] Patient Name: YIN MILLARD MRN: [id number] date: 2005 Sex: F Assigned Patient [facility] Current Patient Location: [facility] Accession/Order Numb er: [id number] Exam Date: 03/25/2025 11:31 Report Date: 03/25/2025 11:32 At the request of: HO ESPITIA DO Procedure: US OB fet al BPP w non-stress Biophysical profile. Reason for exam: Sma ll for gestational age. COMPARISON: None. TECHNIQUE: Transabdominal imaging of the gravid uterus was obtained. FINDINGS: Biophysica l profile is 8 out of 8. JOSEPH is normal at 10.0 cm. heart rate 171 bpm. US/US OB BPP w non-stress IMPRESSION: BPP 8 ou t of 8. Impression dictated by: Juan Ramon Lopez Jr., D.O. 03/25/2025 11:32 AM Dictation Location: [place] [address] Electronically authenticated by: [id number] Y Date: 03/25/2025 11:32 Dictated By: Juan Ramon Lopez M.D. Signed By: 03/25/25 1135 DD/ 1132 TD/TT: Kettle Tender: US OB BPP w non-stress Reviewed date:04/08/2025 04:50:21 PM Interpretation: Performing Lab: Notes/Report: Source Facility: [place] [address] Ultrasound Report Signed Patient: YIN MILLARD MR#: [id number] : 2005 Acct:[id number] Age/Sex: 20 / F ADM Date: 04/08/25 Loc: US Attending Dr: Ho Espitia D.O. Ordering Physician: Ho Espitia D.O. Date of Service: 04/08/25 Procedure(s): US OB BPP w non-stress Accession Number(s): [id number] cc: MADDIE COREA ; Ho Espitia D.O. The [place] [address] Patient Name: YIN MILLARD MRN: [id number] date: 2005 Sex: F Assigned [facility] Current Patient Location: Accession/Order Number: [id number] Exam Date: 04/08/2025 16:39 Report Date: 04/08/2025 [...] Soto M.D. 04/08/2025 4:40 PM [facility] by: [id number] Y Date: 04/08/2025 16:40 Dictated By: Franck Soto D.O. Signed By: 04/08/25 1643 DD/ 1640 TD/TT: Kettle Tender: [place] [address] Ultrasound Report Signed Patient: YIN MILLARD MR#: [id number] : 2005 Acct:[id number] Age/Sex: 20 / F ADM Date: 04/08/25 Loc: US Attending Dr: Ho Espitia D.O. Ordering Physician: Ho Espitia D.O. Date of Service: 04/08/25 Procedure(s): US OB BPP w non-stress Accession Number(s): [id number] cc: MADDIE COREA ; Ho Espitia D.O. [address] [address] Patient Name: YIN MILLARD MRN: [id number] date: 2005 Sex: F Assigned Patient [facility] Current Patient Location: Accession/Order Numb er: [id number] Exam Date: 04/08/2025 16:39 Report Date: 04/08/2025 [...] Soto M.D. 04/08/2025 4:40 PM Dictation Location: [facility] Electronically authenticated by: [id number] Y Date: 04/08/2025 16:40 Dictated By: Franck Soto D.O. Signed By: 04/08/25 1643 DD/ 1640 TD/TT: Kettle Tender: URINE MICROSCOPIC ONLY Reviewed date:02/14/2025 12:03:19 PM Interpretation: Performing Lab: Notes/Report: [facility] , WBC Urine 2-5 NONE SEEN #/HPF RBC Urine 10-20 0-2 #/HPF Bacteria Urine SMALL NONE SEEN #/HPF Mucus Urine SMALL NONE SEEN Squamous Epithelial Cell Urine FEW NONE/RARE #/LPF Crystals Seen? Seen None Seen #/HPF Amorphous Sediment Urine MODERATE Cast Seen? NONE SEEN NONE SEEN #/LPF Urine Culture Indicated YES-LC Performing Lab: see note ML - [facility] LB CA echo doppler complete Reviewed date:01/31/2025 10:24:34 AM Interpretation: Performing Lab: Notes/Report: Source Facility: [place] [address] Cardiology Report Signed Patient: YIN MILLARD MR#: [id number] : 2005 Acct:[id number] Age/Sex: 19 / F ADM Date: 01/30/25 Loc: CARD Attending Dr: Ho Espitia D.O. Ordering Physician: Ho Espitia D.O. Date of Service: 01/30/25 Procedure(s): CA echo doppler complete Accession Number(s): [id number] cc: ANMOL,Ho Rodarte D.O. Patient Name: YIN MILLARD MR#: [id number] : 2005 Exam Date: 01/30/2025 Ordering Doctor: [...] AMBROSIO Signed By: 01/30/252011 DD/ 10 TD/TT: Kettle Tender: [place] [address] Cardiology Report Signed Patient: YIN MILLARD MR#: [id number] : 2005 Acct:[id number] Age/Sex: 19 / F ADM Date: 01/30/25 Loc: [facility] Attending Dr: Ho Espitia D.O. Ordering Physician: Ho Espitia D.O. Date of Service: 01/30/25 Procedure(s): CA ech o doppler complete Accession Number(s): [id number] cc: MADDIE COREA ; Ho Espitia D.O. Patient Name: YIN MILLARD MR#: [id number] : 2005 Exam Date: 01/30/2025 Ordering Doctor: [...] AMBROSIO Signed By: 01/30/252011 DD/ 10 TD/TT: Kettle Tender: CBC AUTO DIFF Reviewed date:01/30/2025 01:26:23 PM Interpretation: Performing Lab: Notes/Report: [facility] , White Blood Count 10.2 [...] Performing Lab: see note ML - [facility] LB CBC AUTO DIFF Reviewed date:01/17/2025 01:51:08 PM Interpretation: Performing Lab: Notes/Report: [facility] , White Blood Count 12.0 4.0-11.0 10 [...] 3/uL Performing Lab: see note ML - [facility] GLYCOHEMOGLOBIN A1C Reviewed date:10/29/2024 11:42:09 AM Interpretation: Performing Lab: Notes/Report: [facility] , Glycohemoglobin A1C 5.1 4.5-6.2 % ADA RECOMMENDED LIMIT 4.0 - 6.0 ADA THERAPEUTIC TARGET < 7.0 ACTION SUGGESTED > 7.0 Estimated Average Glucose 100 Performing Lab: see note ML - [facility] DRUG SCREEN RAPID (URINE) Reviewed date:10/29/2024 11:42:09 AM Interpretation: Performing Lab: Notes/Report: [facility] , Cannabinoid Screen Urine NEGATIVE NEGATIVE Phencyclidine Screen Urine NEGATIVE NEGATIVE Cocaine Screen Urine NEGATIVE NEGATIVE Methamphetamines Screen Urine NEGATIVE NEGATIVE Opiate Screen Urine NEGATIVE NEGATIVE Amphetamine Screen Urine NEGATIVE NEGATIVE Benzodiazepines Screen Urine NEGATIVE NEGATIVE Tricyclic Antidepressant Urine NEGATIVE NEGATIVE Methadone Screen Urine NEGATIVE NEGATIVE Barbiturates Screen Urine NEGATIVE NEGATIVE Oxycodone Screen Urine NEGATIVE NEGATIVE Buprenorphine Screen Urine NEGATIVE NEGATIVE DRUG CLASS TEST SYSTEM CUT-OFF CONCENTRATIONS ARE FOLLOWS: AMP (Amphetamine): 500 ng/mL BAR (Barbiturates): 200 ng/mL BZO (Benzodiazepines): 150 ng/mL BUP (Buprenorphine): 10 ng/mL ERNESTINA (Cocaine): 150 ng/mL mAMP (Methamphetamine): 500 ng/mL MTD (Methadone): 200 ng/mL OPI (Opiates): 100 ng/mL OXY (Oxycodone): 100 ng/mL PCP (Phencyclidine): 25 ng/mL THC (Cannabinoids): 50 ng/mL TCA (Trycyclic Antidepressants): 300 ng/mL Performing Lab: see note ML - [facility] PREG QUANT HCG Reviewed date:09/12/2024 04:00:18 PM Interpretation: Performing Lab: Notes/Report: [facility] , HCG Quantitative 3351 5-50 0.2-1 WEEK 50-500 1-2 WEEKS 100-5,000 2-3 WEEKS 500-10,000 3-4 WEEKS 1,000-50,000 4-5 WEEKS 10,000-100,000 5-6 WEEKS 15,000-200,000 6-8 WEEKS 10,000-100,000 2-3 MONTHS Performing Lab: see note - [facility] LB DHEA-Sulfate Reviewed date:07/26/2024 02:05:23 PM Interpretation: Performing Lab: Notes/Report: [facility] , DHEA-Sulfate 404.0 110.0-431.7 ug/dL Performing Lab: see note [facility] Estradiol Reviewed date:07/26/2024 02:05:23 PM Interpretation: Performing Lab: Notes/Report: [facility] , Estradiol 115.0 . pg/mL Adult Female Range Follicular phase 12.5 - 166.0 Ovulation phase 85.8 - 498.0 Luteal phase 43.8 - 211.0 Postmenopausal <6.0 - 54.7 1st trimester 215.0 - >4300.0 Abiola ECLIA methodology Performed at: [address] [id number] Slide Fastener Chain Assembler: Ney Hurley PhD, Phone: [phone] Performing Lab: see note [facility] FSH Reviewed date:07/26/2024 02:05:23 PM Interpretation: Performing Lab: Notes/Report: [facility] , FSH 5.2 . mIU/mL Adult Female Range Follicular phase 3.5 - 12.5 Ovulation phase 4.7 - 21.5 Luteal phase 1.7 - 7.7 Postmenopausal 25.8 - 134.8 Performing Lab: see note [facility] LB Luteinizing Hormone(LH) Reviewed date:07/26/2024 02:05:23 PM Interpretation: Performing Lab: Notes/Report: [facility] , Luteinizing Hormone(LH) 14.8 . mIU/mL Adult Female Range Follicular phase 2.4 - 12.6 Ovulation phase 14.0 - 95.6 Luteal phase 1.0 - 11.4 Postmenopausal 7.7 - 58.5 Performing Lab: see note [facility] DHEA, Serum Reviewed date:07/30/2024 08:53:24 AM Interpretation: Performing Lab: Notes/Report: [facility] , DHEA, Serum 526 31-701 ng/dL This test was developed and its performance characteristics determined by [facility]. It has not been cleared or approved by the Food and Drug Administration. Performed at: [address] [id number] Slide Fastener Chain Assembler: Asif Smith MD, Phone: [phone] Performing Lab: see note [facility] Progesterone Reviewed date:07/26/2024 02:05:23 PM Interpretation: Performing Lab: Notes/Report: [facility] , Progesterone 0.2 . ng/mL Follicular phase 0.1 - 0.9 Luteal phase 1.8 - 23.9 Ovulation phase 0.1 - 12.0 First trimester 11.0 - 44.3 Second trimester 25.4 - 83.3 Third trimester 58.7 - 214.0 Postmenopausal 0.0 - 0.1 Performed at: [address] [id number] Slide Fastener Chain Assembler: Ney Hurley PhD, Phone: [phone] Performing Lab: see note [facility] LB TSH Reviewed date:07/25/2024 04:26:00 PM Interpretation: Performing Lab: Notes/Report: [facility] , Thyroid Stimulating Hormone 1.597 0.358-3.740 uIU/mL Performing Lab: see note ML - [facility] PREG QUANT HCG Reviewed date:07/25/2024 04:26:00 PM Interpretation: Performing Lab: Notes/Report: [facility] , HCG Quantitative <1 5-50 0.2-1 WEEK 50-500 1-2 WEEKS 100-5,000 2-3 WEEKS 500-10,000 3-4 WEEKS 1,000-50,000 4-5 WEEKS 10,000-100,000 5-6 WEEKS 15,000-200,000 6-8 WEEKS 10,000-100,000 2-3 MONTHS Performing Lab: see note ML - [facility] LB GLYCOHEMOGLOBIN A1C Reviewed date:07/25/2024 04:26:00 PM Interpretation: Performing Lab: Notes/Report: [facility] , Glycohemoglobin A1C 4.9 4.5-6.2 % ADA RECOMMENDED LIMIT 4.0 - 6.0 ADA THERAPEUTIC TARGET < 7.0 ACTION SUGGESTED > 7.0 Estimated Average Glucose 94 Performing Lab: see note ML - [facility] LB FREE T4 Reviewed date:07/25/2024 04:26:00 PM Interpretation: Performing Lab: Notes/Report: [facility] , Free T4 0.96 0.76-1.46 ng/dL Performing Lab: see note - [facility] LB CBC AUTO DIFF Reviewed date:07/25/2024 04:26:00 PM Interpretation: Performing Lab: Notes/Report: [facility] , White Blood Count 6.0 [...] Performing Lab: see note ML - [facility] LB PREG QUANT HCG Reviewed date:06/14/2024 02:21:43 PM Interpretation: Performing Lab: Notes/Report: [facility] , HCG Quantitative 18 5-50 0.2-1 WEEK 50-500 1-2 WEEKS 100-5,000 2-3 WEEKS 500-10,000 3-4 WEEKS 1,000-50,000 4-5 WEEKS 10,000-100,000 5-6 WEEKS 15,000-200,000 6-8 WEEKS 10,000-100,000 2-3 MONTHS Performing Lab: see note ML - [facility] LB Strep Gp B Culture+Rflx Reviewed date:04/21/2025 03:13:32 PM Interpretation: Performing Lab: Notes/Report: [facility] , Strep Gp B Culture+Rflx See Below For Report Strep Gp B Culture+Rflx Strep Gp B Culture+Rflx Negative Strep Gp B Culture+Rflx Strep Gp B Culture+Rflx Centers for Dise ase Control and Prevention (CDC) and Strep Gp B Culture+Rflx Strep Gp B Culture+Rflx [facility] [employer] s of Obstetricians and Gynecologists Strep Gp B Culture+Rflx Strep Gp B Culture+Rflx (ACOG) guideline s for prevention of group B Strep Gp B Culture+Rflx Strep Gp B Culture+Rflx streptococcal (G BS) disease specify co-collection of Strep Gp B Culture+Rflx Strep Gp B Culture+Rflx a vaginal and re ctal swab specimen to maximize Strep Gp B Culture+Rflx Strep Gp B Culture+Rflx sensitivity of G BS detection. Per the CDC and ACOG, Strep Gp B Culture+Rflx Strep Gp B Culture+Rflx swabbing both th e lower vagina and rectum Strep Gp B Culture+Rflx Strep Gp B Culture+Rflx substantially in creases the yield of detection Strep Gp B Culture+Rflx Strep Gp B Culture+Rflx compared with sa mpling the vagina alone. Strep Gp B Culture+Rflx Strep Gp B Culture+Rflx Penicillin G, ampicillin, or cefazolin are indicated Strep Gp B Culture+Rflx Strep Gp B Culture+Rflx for intrapartum prophylaxis of GBS Strep Gp B Culture+Rflx Strep Gp B Culture+Rflx colonization. Re flex susceptibility testing should be Strep Gp B Culture+Rflx Strep Gp B Culture+Rflx performed prior to use of clindamycin only on GBS Strep Gp B Culture+Rflx Strep Gp B Culture+Rflx isolates from penicillin-allergic women who are Strep Gp B Culture+Rflx Strep Gp B Culture+Rflx considered a hig h risk for anaphylaxis. Treatment with Strep Gp B Culture+Rflx Strep Gp B Culture+Rflx vancomycin witho ut additional testing is warranted if Strep Gp B Culture+Rflx Strep Gp B Culture+Rflx resistance to clindamycin is noted. Strep Gp B Culture+Rflx Strep Gp B Culture+Rflx Performed at: - [facility] [place] Strep Gp B Culture+Rflx Strep Gp B Culture+Rflx [address] [place], [place] [id number] Strep Gp B Culture+Rflx Strep Gp B Culture+Rflx Slide Fastener Chain Assembler: Meg Hurley PhD, Phone: [phone] Strep Gp B Culture+Rflx Performing Lab: see note LC - [facility] LB SEE REPORT - Wax Room Supervisor Id information not found for OBX-specific writer producer legend Reason For Referral No Information Medications Medication [...] Status W/U Status Risk Notes Problem Depression (517501635) Depression (F32.9) Active confirmed Problem Seasonal allergic rhinitis (111990836) Seasonal allergic rhinitis (J30.2) Active confirmed Problem Intolerant of heat (55760923) Intolerant of heat (R68.89) Active confirmed Vital Signs Blood pressure diastolic 60 mm Hg 10/16/2024 Height 64 in 10/16/2024 Blood pressure systolic 100 mm Hg 10/16/2024 Weight 117.6 lbs 10/16/2024 BMI 20.18 kg/m2 10/16/2024 Encounters Encounter Location Date Provider Diagnosis [facility] [address] [place] [address] 07/02/2024 Maddie Corea [facility] [address] [place] [address] 10/16/2024 Maddie Corea [facility] [address] [place] [address] 10/16/2024 Maddie Corea Seasonal allergic rhinitis J30.2 Assessments Encounter Date [...] Date Coverage End Date [employer] [address] [address] [place] [address] [id number] Yin Millard Self - patient is the insured [employer] [place] [employer] [address] [place] [address] [id number] Yin Millard Self - patient is the insured Medical (General) History Medical History History ICD Code Depression F32.9 Intolerant of heat R68.89 Seasonal allergic rhinitis J30.2 Surgical History Surgery Date(Month/Year) Eye Surgery Dental iud placed and removed
--- OUTSIDE RECORDS SUMMARY | 2025-04-25 09:09 | XMS_ITS | Encounter Summary ---
Author Organization [facility] Address [address] [place] [address] Care Team Providers Care Sports Marketing Specialist Name Role Phone Unavailable Primary Care Provider Unavailabl e Encounter Details Date Type Department Care Team (Late st Contact Info) Description 04/22/2025 Bamboo flowsheet [facility] [address] [place] [address] Nhung Adamson PA [address] [place], [place] [address] Social History Tobacco Use Types Packs/Day Years [...] PM EDT Routine [facility] [address] [place] [address] El Espitia, [address] Zair[address] [place], [place] [id number] documented as of this encounter Visit Diagnoses Not on filedocumented in this encounter
--- OUTSIDE RECORDS SUMMARY | 2025-04-25 09:09 | XMS_ITS | Encounter Summary ---
Author Organization [facility] Address [address] [place] [address] Care Team Providers Care Pension Adviser Name Role Phone Unavailable Primary Care Provider Unavailabl e Encounter Details Date Type Department Care Team (Late st Contact Info) Description 01/13/2025 Abstract [facility] [address] [address] El Espitia, [address] [place], [place] [id number] Social History Tobacco Use Types Packs/Day Years [...] Description 04/30/2025 1:30 PM EDT Routine [facility] OB [address] [place] [address] El Espitia, [address] [place] [address] documented as of this encounter Visit Diagnoses Not on filedocumented in this encounter
--- OUTSIDE RECORDS SUMMARY | 2025-04-25 09:09 | XMS_ITS | Encounter Summary ---
Author Organization [facility] Address [address] [place] [address] Care Team Providers Care Respiratory Care Faculty Name Role Phone Unavailable Primary Care Provider Unavailabl e Encounter Details Date Type Department Care Team (Late st Contact Info) Description 04/04/2025 Abstract [facility] OB [address] [place] [address] Sofy Huntley MA Social History Tobacco [...] Description 04/30/2025 1:30 PM EDT Routine [facility] OB [address] [place] [address] El Espitia, DO [address] [place], [place] [address] documented as of this encounter Visit Diagnoses Not on filedocumented in this encounter
--- OUTSIDE RECORDS SUMMARY | 2025-04-25 09:09 | XMS_ITS | Encounter Summary ---
Author Organization [facility] Address [address] [place] [address] Care Team Providers Care Field Trainer Name Role Phone Unavailable Primary Care Provider Unavailabl e Encounter Details Date Type Department Care Team (Late st Contact Info) Description 03/27/2025 Abstract [facility] OB [address] [facility] [address] El Espitia, [address] [place] [place], [place] [id number] Social History Tobacco Use Types Packs/Day Years [...] Description 04/30/2025 1:30 PM EDT Routine [facility] OB [address] [place] [address] El Espitia, [address] [place] [address] documented as of this encounter Visit Diagnoses Not on filedocumented in this encounter
--- OUTSIDE RECORDS SUMMARY | 2025-04-25 09:09 | XMS_ITS | Encounter Summary ---
Author Organization [facility] Address [address] [place] [address] Care Team Providers Care Pump Rebuilder Name Role Phone Unavailable Primary Care Provider Unavailabl e Encounter Details Date Type Department Care Team (Late st Contact Info) Description 04/15/2025 Bamboo flowsheet [facility] OB [address] [place] [address] El Espitia, [address] [place], [place] [address] Social History Tobacco Use Types Packs/Day Years [...] Routine [facility] B[facility] OB [address] [place] [address] El Espitia, [address] [place] [address] documented as of this encounter Visit Diagnoses Not on filedocumented in this encounter
--- OUTSIDE RECORDS SUMMARY | 2025-04-25 09:09 | XMS_ITS | Encounter Summary ---
Author Organization [facility] Address [address] [place] [address] Care Team Providers Care Management Analyst Name Role Phone Unavailable Primary Care Provider Unavailabl e Encounter Details Date Type Department Care Team (Late st Contact Info) Description 04/03/2025 Abstract [facility] OB [address] [facility] [address] El Espitia, [address] [place] [place], [place] [phone] Social History Tobacco Use Types Packs/Day Years [...] Description 04/30/2025 1:30 PM EDT Routine [facility] OB [address] [place] [address] El Espitia, [address] [place] [address] documented as of this encounter Visit Diagnoses Not on filedocumented in this encounter
--- OUTSIDE RECORDS SUMMARY | 2025-04-25 09:09 | XMS_ITS | Encounter Summary ---
Author Organization [facility] Address [address] [place] [address] Care Team Providers Care Coal Cutting Machine Operator Name Role Phone Unavailable Primary Care Provider Unavailabl e Encounter Details Date Type Department Care Team (Late st Contact Info) Description 10/26/2024 Clinisync Result Encounter [facility] External Department Unsolicited Ho Espitia DO [address] [place] [address] Social History Tobacco Use Types Packs/Day Years [...] Routine [facility] BCP OB [address] [place] [id number] Ho Espitia DO [address] [place] [address] documented as of this encounter Procedures Procedure Name Priority Date/Time Associated Diagnosis Comments US OB TRANSVAGINAL 10/26/2024 4: 54 AM EST documented in this encounter Results * US OB TRANSVAGINAL (10/26/2024 4:54 AM EST) Anatomical Region Laterality Modality Other 10/26/2024 4:54 AM EST Narrative 10/26/2024 4:56 AM EST [address] [address] Ultrasound Report Signed Patient: SHILPI MILLARD MR#: [id number] : 2005 Acct:[id number] Age/Sex: 19 / F ADM Date: 10/25/24 Loc: [facility] Attending Dr: Ho Espitia D.O. Ordering Physician: Ho Espitia D.O. Date of Service: 10/25/24 Procedure(s): US OB transvaginal Accession Number(s): [id number] cc: BUCKY COREA ; Ho Espitia D.O. [address] [address] Patient Name: SHILPI MILLARD MRN: [id number] date: 2005 Sex: F Assigned Patient Location: [facility] Current Patient Location: Accession/Order Number: [id number] Exam Date: 10/25/2024 10:10 Report Date: 10/26/2024 [...] M.D. Signed By: 10/26/24455 DD/ 3 TD/TT: Foreign Legal Consultant: Procedure Note Radiology, Radiologist, MD - 10/26/2024 [place] [address] Ultrasound Report Signed Patient: SHILPI MILLARD MMR#: [id number] : 2005Acct:[id number] Age/Sex: 19 / FADM Date: 10/25/24 Loc: [facility] Attending Dr: Ho Espitia D.O. Ordering Physician: Ho Espitia D.O. Date of Service: 10/25/24 Procedure(s): US OB transvaginal Accession Number(s): [id number] cc: BUCKY COREA ; Ho Espitia D.O. The [place] [id number] Patient Name: SHILPI MILLARD MRN: [id number] date: 2005 Sex: F Assigned Patient Location: [facility] Current Patient Location: Accession/Order Number: [id number] Exam Date: 10/25/2024 10:10 Report Date: 10/26/2024 [...] 04:54 Dictated By: Arturo Eduardo M.D. Signed By:10/26/246 DD/ 3 TD/TT: Foreign Legal Consultant: us Ho Nupur DO [facility] Final Result documented in this encounter Visit Diagnoses Not on filedocumented in this encounter
--- OUTSIDE RECORDS SUMMARY | 2025-04-25 09:09 | XMS_ITS | Encounter Summary ---
Author Organization [facility] Address [address] [place] [address] Care Team Providers Care Machine Woodworking Sander Name Role Phone Unavailable Primary Care Provider Unavailabl e Encounter Details Date Type Department Care Team (Late st Contact Info) Description 04/09/2025 Abstract [facility] OB [address] [facility] [place] [address] El Espitia, [address] [place] [place], [place] [id number] Social History Tobacco Use Types Packs/Day Years [...] Description 04/30/2025 1:30 PM EDT Routine [facility] OB [address] [place] [address] El Espitia, [address] [place] [address] documented as of this encounter Visit Diagnoses Not on filedocumented in this encounter
--- OUTSIDE RECORDS SUMMARY | 2025-04-25 09:09 | XMS_ITS | Patient Health Record ---
Author Organization [employer] [facility] Address [address] [place] [address] Support Name Relationship Address Phone CONCHITA Yeimi Emergency Contact [address] [place] [address] FREEMANSHAUNNA Guarantor Unknown [phone] Reason For Referral No Information Problems Problem Type SNOMED Code ICD Code Onset Dates Problem Status W/U Status Risk Notes Problem [id number] Social anxiety disorder (F40.10) Active confirmed Plan Of Treatment No Information Insurance Providers Payer Name Payer Address Payer Phone Subscriber Number Group Number Insured Name Patient Relationship to Insured Coverage Start Date Coverage End Date [employer] [address] [address] [place] [address] [id number] YIN MILLARD Self - patient is the insured 1 [facility] CHP-termed 22 [address] [place] [address] [id number] [facility] YIN MILLARD Self - patient is the insured 2 [employer] after [facility] CHP-termed 22 [address] [place] [address] [id number] YIN MILLARD Self - patient is the insured 2
--- OUTSIDE RECORDS SUMMARY | 2025-04-25 09:09 | XMS_ITS | Encounter Summary ---
Author Organization [facility] Address [address] [place] [address] Care Team Providers Care Environmental Technician Name Role Phone Unavailable Primary Care Provider Unavailabl e Encounter Details Date Type Department Care Team (Late st Contact Info) Description 03/27/2025 Abstract [facility] OB [address] [place] [address] El Espitia, [address] [place] [place], [place] [phone] Social History Tobacco Use Types Packs/Day Years [...] Description 04/30/2025 1:30 PM EDT Routine [facility] OB [address] [place] [address] El Espitia, [address] [place] [address] documented as of this encounter Visit Diagnoses Not on filedocumented in this encounter
[2025-04-25 09:12] VITALS: BP 111/69; PULSE 63
--- OUTSIDE RECORDS SUMMARY | 2025-04-25 09:22 | XMS_ITS | CCD ---
Author Organization [facility] Care Team Providers Care Real Estate Associate Name Role Phone Iker OLIVAS Primary Care Physician Maddie Dickson Unavailable Lynette Flores Unavailable MD Iker Olivas Primary Care Provider [phone] MD Kole Baron Attending Provider Lanny Nieves [...] DOMO Eddy Consulting Unavailable PAY ., DR DLE ROSARIO Consulting Unavailable STRAWSER, JONI Consulting Unavailable EDUARDO SANTANA Consulting Unavailable TRINITY Almendarez Attending Provider Unavailable Primary Care Provider UnavailIsabella Christensen Attending Unavailable Isabella Almendarez Admitting Unavailable NON STAFF Primary Care Unavailable Unavailable Primary Care Provider UnavailBAKARI Diaz Attending Unavailable NUPUR, EL R Referring Unavailable NUPUR, EL R Referring Unavailable NUPUR, EL R Referring Unavailable NUPUR, EL R Referring Unavailable NUPUR, EL Referring Unavailable NUPURNADEEMY Attending Unavailable NUPUR, EL Attending Unavailable JUAN DIEGONHUNG FRANCISCO Attending Unavailable NUPUR, EL Attending Unavailable NUPUR, EL Attending Unavailable NUPUR, EL Attending Unavailable NUPUR, EL Attending Unavailable NUPUR, EL Referring Unavailable NHUNG YBARRA Attending Unavailable NUPUR, EL Attending Unavailable JUAN DIEGO, NHUNG Attending Unavailable Allergies Allergy Classification Reported Allergen(s) Allergy Type Date of Onset Reaction(s) Facility (20 sources) Latex; Translations: [LATEX] Drug allergy 9 Eruption of skin (disorder), Unknown, Rash, Hives [facility] [place] (3 sources) contact metals 1 Drug allergy Eruption of skin (disorder) [facility] [place] Comment on above: family states pt dev elops rash to alumininum in deoderant, fake jewelry (possibly kp?), etc (8 sources) Coconut extract; Translations: [coconut] Drug Allergy 2 GI Disturbance [facility] [place] (20 sources) Iron; Translations: [IRON] Drug Allergy 2 Hives [facility] Repository (2 sources) contact metal agent Drug allergy (disorder) 4 Rash [facility] Repository (1 source) contact metals; Translations: [contact metals] Propensity to adverse reactions (disorder) [facility] Repository (20 sources) Coconut extract Drug Allergy 4 GI intolerance [facility] Healthcare (20 sources) Other Propensity to adverse reactions 9 Unknown [facility] Healthcare (1 source) contact metal agent Drug allergy (disorder) 4 [facility] [place] Repository Medications Current Medications Medication Drug Class(es) [...] # 28 tab(s), Refills(s) 0, Pharmacy: [facility]/pharmacy #[id number], 161, cm, 03/16/22 14:08:00 EDT, Height/Length Dosing, 55.9, kg, 03/16/22 14:08:00 EDT, Weight Dosing Start Date: 03/16/22 Stop Date: 03/30/22 Status: Ordered cephalexin 500 mg oral capsule (2 sources) Cephalosporin Antibacterial Start: 04-18-2024 take 500 mg by mouth three times daily Cephalexin Active 500 MG PO Three times daily 09 06April 18, 2024 12:00am Start: 02-25-2022 take 1 capsule by mo [facility] every eight hours Cephalexin 500 MG 1 capsule Orally tid for 10 day(s) Feb, Active cetirizine hydrochloride 10 mg oral tablet (4 sources) Histamine-1 Receptor Antagonist Start: 01-11-2023 take 1 tablet by mouth every twenty-four hours Cetirizine HCl 10 MG 1 tablet Orally Once a day for 30 day(s) Dec, Active Start: 03-02-2022 take 1 tablet by [facility] once daily as needed cetirizine 10 mg Tab 10 mg = 1 tab(s), Oral, Daily, PRN for allergy symptoms, # 30 tab(s), Refills(s) 0, Pharmacy: [facility]/pharmacy #[id number], 164, cm, 03/02/22 14:37:00 EDT, [...] # 30 tab(s), Refills(s) 0, Pharmacy: [facility]/pharmacy #[id number], 165.5, cm, 02/22/22 13:27:00 EDT, Height/Length Dosing, 54, kg, 02/22/22 13:27:00 EDT, Weight Dosing Start Date: 02/22/22 Status: Ordered 654-ibpj-gqzjl ac-dha (PRENA1 TRUE) 30 mg iron- 1.4 mg-300 mg combo pack (1 source) take 1 tablet by mouth in the morning 744-lhtj-rkvcu ac-dha (PRENA1 TRUE) 30 mg iron- 1.4 [...] low weight; and growth retardation (6 sources) Daxtj-zsd-zzdnb baby; Translations: [[place] small for gestational age, unspecified weight] Onset: [...] Facility OB BPP W NON-STRESS on 04-08-2025 [place] [address] Ultrasound Report Signed Patient: SHILPI MILLARD MR#: [id number] : 2005 Acct:[id number] Age/Sex: 20 / F ADM Date: 04/08/25 Loc: US Attending Dr: El Espitia D.O. Ordering Physician: El Espitia D.O. Date of Service: 04/08/25 Procedure(s): US OB BPP w non-stress Accession Number(s): [id number] cc: MADDIE COREA ; El Espitia D.O. [place] [id number] Patient Name: SHILPI MILLARD MRN: [facility]:[id number] date: 2005 Sex: F Assigned Patient Location: [facility] Current Patient Location: Accession/Order Number: [id number] Exam Date: 04/08/2025 16:39 Report Date: 04/08/2025 [...] Soto M.D. 04/08/2025 4:40 PM Dictation Location: ROI² Electronically authenticated by: [id number] Y Date: 04/08/2025 16:40 Dictated By: Franck Soto D.O. Signed By: 04/08/25 1643 DD/ 1640 TD/TT: Stopboard Assembler: [facility] Radiology, Radiologist, - 04/08/2025 [place] [address] Ultrasound Report Signed Patient: SHILPI MILLARD MR#: [id number] : 2005 Acct:[id number] Age/Sex: 20 / F ADM Date: 04/08/25 Loc: US Attending Dr: El Espitia D.O. Ordering Physician: El Espitia D.O. Date of Service: 04/08/25 Procedure(s): US OB BPP w non-stress Accession Number(s): [id number] cc: MADDIE COREA ; El Espitia D.O. The [address] [address] Patient Name: SHILPI MILLARD MRN: [facility]:[id number] date: 2005 Sex: F Assigned Patient Location: [facility] Current Patient Location: Accession/Order Number: [id number] Exam Date: 04/08/2025 16:39 Report Date: 04/08/2025 [...] Soto M.D. 04/08/2025 4:40 PM Dictation Location: ROI² Electronically authenticated by: [id number] Y Date: 04/08/2025 16:40 Dictated By: Franck Soto D.O. Signed By: 04/08/25 1643 DD/ 1640 TD/TT: Stopboard Assembler: [facility] Radiology Study observation (narrative) [facility] US OB BPP W NON-STRESS Ordered By: Radiologist Radiology on 04-08-2025 [facility] [employer] Work Phone: Urinalysis macro (dipstick) panel (U)on 04-08-2025 Bilirubin, UA Negative Negative - 4(70) +++ mg/dL [facility] Blood, UA Negative Negative - 50 Rambo/mcL [facility] Clarity, UA Clear [facility] re Color, UA Yellow [facility] Glucose, UA Negative Negative - 1999(110) ++++ mg/dL [facility] Interpretation and review of laboratory results Normal [facility] Ketones, UA Negative Negative - 160(16) ++++ mg/dL [facility] Leukocytes, UA Negative Negative - 500+++ Charity/mcL [facility] Nitrite, UA Negative Negative - Positive [facility] pH, UA 5.5 5 - 9 [facility] e Protein, UA Negative Negative - 1999(20) ++++ mg/dL [facility] Spec Grav, UA 1.02 1 - 1.03 [facility] Urobilinogen, UA 1.0 0.2 - 12 mg/dL [facility] Estimize [facility] MF with or without consu lton 04-03-2025 NAME: FREEMAN ESQUEDA : 2005 SEX: F Accession Number: [id number] ORDERING PHYSICIAN: BAKARI HOWELL REFERRING PHYSICIAN: EL ESPITIA Coding Procedures 08851: Limited OB / JOSEPH, 1 or More Fetuses 11452: Doppler velocimetry, ; umbilical artery Indication IUGR-Poor growth History OB History 2. Para 0 [id number] Maternal Assessment Physical Exam Height 163 cm, [...] MVP measures 6.5 cm. Recommendations Please see [facility] recommendations from prior clinical and/or ultrasound report documentation. The patient is scheduled in 2 week(s) for growth and Doppler. Subsequent follow up or other follow up as clinically determined by primary OB provider unless otherwise specified by [facility]. Results forwarded to ordering provider so they can follow up with the patient as necessary. [facility] Bruno Leonard MD - 04/03/2025 NAME: FREEMAN ESQUEDA : 2005 SEX: F Accession Number: [id number] ORDERING PHYSICIAN: BAKARI HOWELL REFERRING PHYSICIAN: EL ESPITIA Coding Procedures 68354: Limited OB / JOSEPH, 1 or More Fetuses 18762: Doppler velocimetry, ; umbilical artery Indication IUGR-Poor growth History OB History 2. Para 0 [id number] Maternal Assessment Physical Exam Height 163 cm, [...] follow up with the patient as necessary. [facility] Radiology Study observation (narrative) [facility] US MFM with or without consu ltOrdered By: Bruno Leonard on 04-03-2025 [employer] Work Phone: US OB BPP W NON-STRESS on 03-25-2025 [place] [address] Ultrasound Report Signed Patient: SHILPI MILLARD MR#: [id number] : 2005 Acct:[id number] Age/Sex: 20 / F ADM Date: 03/25/25 Loc: [place] [address]: El Espitia D.O. Ordering Physician: El Espitia D.O. Date of Service: 03/25/25 Procedure(s): US OB BPP w non-stress Accession Number(s): [id number] cc: MADDIE COREA ; El Espitia D.O. [address] [address] Patient Name: SHILPI MILLARD MRN: [facility]:[id number] date: 2005 Sex: F Assigned Patient Location: [facility] Current Patient Location: [facility] Accession/Order Number: [id number] Exam Date: 03/25/2025 11:31 Report Date: 03/25/2025 [...] Jr., D.O. 03/25/2025 11:32 AM Dictation Location: [place] [address] Electronically authenticated by: [id number] Y Date: 03/25/2025 11:32 Dictated By: Juan Ramon Lopez M.D. Signed By: 03/25/25 1135 DD/ 1132 TD/TT: Stopboard Assembler: [facility] Radiology, Radiologist, - 03/25/2025 [place] [address] Ultrasound Report Signed Patient: SHILPI MILLARD MR#: [id number] : 2005 Acct:[id number] Age/Sex: 20 / F ADM Date: 03/25/25 Loc: [place] [address]: El Espitia D.O. Ordering Physician: El Espitia D.O. Date of Service: 03/25/25 Procedure(s): US OB BPP w non-stress Accession Number(s): [id number] cc: MADDIE COREA ; El Espitia D.O. The [place] [address] Patient Name: SHILPI MILLARD MRN: [facility]:[id number] date: 2005 Sex: F Assigned Patient Location: [facility] Current Patient Location: [facility] Accession/Order Number: [id number] Exam Date: 03/25/2025 11:31 Report Date: 03/25/2025 [...] Jr., D.O. 03/25/2025 11:32 AM Dictation Location[facility] Electronically authenticated by: [id number] Y Date: 03/25/2025 11:32 Dictated By: Juan Ramon Lopez M.D. Signed By: 03/25/25 1135 DD/ 1132 TD/TT: Stopboard Assembler: [facility] [employer] Radiology Study observation (narrative) [facility] US OB BPP W NON-STRESS Ordered By: Radiologist Radiology on 03-25-2025 [facility] Work Phone: US OB FOLLOW UP [...] II, MD, PHD at 23-Mar-2025 08:55:00 PM [facility] Normal Not Available Comment on above: [...] II, MD, PHD at 08-Mar-2025 06:48:44 PM [facility] Normal Not Available Comment on above: Order Comment: US OB INCOMPLETE ANATOMY Estimated Date of Delivery: 05/15/25 Gestational Age as of 02/20/2025: 28w0d Urinalysis macro (dipstick) panel (U)on 03-06-2025 Bilirubin, UA Negative Negative - 4(70) +++ mg/dL [facility] Blood, UA Negative Negative - 50 Rambo/mcL [facility] Healthcare Clarity, UA Clear [facility] re Color, UA Yellow [facility] Glucose, UA Negative Negative - 1999(110) ++++ mg/dL [facility] Interpretation and review of laboratory results Normal [facility] Ketones, UA Negative Negative - 160(16) ++++ mg/dL [facility] Leukocytes, UA Negative Negative - 500+++ Charity/mcL [facility] Nitrite, UA Negative Negative - Positive [facility] pH, UA 6.5 5 - 9 [facility] Protein, UA Negative Negative - 1999(20) ++++ mg/dL [facility] Spec Grav, UA 1.02 1 - 1.03 [facility] care Urobilinogen, UA 0.2 0.2 - 12 mg/dL [facility] Urinalysis macro (dipstick) panel (U)on 02-20-2025 Bilirubin, UA Negative Negative - 4(70) +++ mg/dL [facility] Blood, UA Negative Negative - 50 Rambo/mcL [facility] Clarity, UA Clear [facility] Color, UA Yellow [facility] Health[facility] e Glucose, UA Negative Negative - 1999(110) ++++ mg/dL [facility] Interpretation and review of laboratory results Normal [facility] Ketones, UA Negative Negative - 160(16) ++++ mg/dL [facility] Leukocytes, UA Trace Negative - 500+++ Charity/mcL [facility] Nitrite, UA Negative Negative - Positive [facility] pH, UA 7 5 - 9 [facility] e Protein, UA Trace Negative - 1999(20) ++++ mg/dL [facility] Spec Grav, UA 1.02 1 - 1.03 [facility] Urobilinogen, UA 0.2 0.2 - 12 mg/dL [facility] Health[facility] e TBH UA (CLEAN/CATCH) LOCK FITTER/VAMSI RO IF IND.on 02-13-2025 BILIRUBIN URINE Negative NEGATIVE [facility] thcare BLOOD URINE LARGE Abnormal NEGATIVE [facility] Healthca re Clarity (U) CLOUDY Abnormal CLEAR [facility] Health[facility] re Color (U) LT. YELLOW YELLOW [facility] Healthcar e GLUCOSE URINE UA Negative NEGATIVE mg/dL [facility] Interpretation and review of laboratory results Abnormal [facility] Ketones Ql (U) Negative NEGATIVE mg/dL [facility] Leukocyte esterase Test strip Ql (U) TRACE Abnormal NEGATIVE [facility] Healthcar e NITRITE URINE Negative NEGATIVE [facility] Health care pH (U) 7.0 [pH] 5.0 - 9.0 [facility] Healthcar e PROTEIN URINE Negative NEG/TRACE mg/dL [facility] SPECIFIC GRAVITY URINE 1.010 1.005 - 1.025 [facility] URINE MICROSCOPIC INDICATED YES [facility] UROBILINOGEN URINE 0.2 EU/dL 0.2 - 1.0 EU/dL [facility] Healthcar e ALL CBC WITH AUTO DIFFon BASOPHILS ABSOLUTE AUTO 0 [facility] Basophils/100 WBC (Bld) 0.2 % 0.2 - 2.0 % [facility] Eosinophils/100 WBC (Bld) 0.6 % Low 0.9 - 7.0 % [facility] Erythrocyte distribution width (RBC) [Ratio] 12.8 % 11.0 - 15.0 % [facility] Hematocrit (Bld) [Volume fraction] 35.4 % Low 36.0 - 48.0 % [facility] Hemoglobin (Bld) [Mass/Vol] 11.9 g/dL Low 12.0 - 16.0 g/dL [facility] IMMATURE GRANULOCYTES ABS AUTO 0.08 High [facility] Immature granulocytes/100 WBC (Bld) 0.8 % High 0.0 - 0.5 % [facility] Interpretation and review of laboratory results Abnormal [facility] LYMPHOCYTES ABSOLUTE AUTO 1.3 [facility] Lymphocytes/100 WBC (Bld) 12.7 % Low 20.5 - 60.0 % [facility] MCH (RBC) [Entitic mass] 28.5 pg 26.7 - 34.0 pg [facility] MCHC (RBC) [Mass/Vol] 33.6 g/dL 29.9 - 35.2 g/dL [facility] MCV (RBC) [Entitic vol] 84.9 fL 81.0 - 99.0 fL [facility] MONOCYTES ABSOLUTE AUTO 0.5 [facility] Monocytes/100 WBC (Bld) 5.2 % 1.7 - 12.0 % [facility] NEUTROPHILS ABSOLUTE AUTO 8.2 High [facility] Neutrophils/100 WBC (Bld) 80.5 % High 43.0 - 75.0 % [facility] Platelet mean volume (Bld) [Entitic vol] 9.2 fL Low 9.5 - 13.5 fL [facility] EO # 0.1 [facility] PLT 319 [facility] RBC 4.17 Low [facility] WBC 10.2 [facility] CA ECHO DOPPLER COMPLETEon 0 01-30-[address] [address] Cardiology Report Signed Patient: SHILPI MILLARD MR#: [id number] : 2005 Acct:[id number] Age/Sex: 19 / F ADM Date: 01/30/25 Loc: CARD Attending Dr: El Espitia D.O. Ordering Physician: El Espitia D.O. Date of Service: 01/30/25 Procedure(s): CA echo doppler complete Accession Number(s): [id number] cc: MADDIE COREA ; El Espitia D.O. Patient Name: SHILPI MILLARD MR#: [id number] : 2005 Exam Date: 01/30/2025 Ordering Doctor: [...] Signed By: 01/30/252011 (more content not included)... [facility] Radiology, Radiologist, MD - 01/30/2025 [place] [address] Cardiology Report Signed Patient: SHILPI MILLARD MR#: [id number] : 2005 Acct:[id number] Age/Sex: 19 / F ADM Date: 01/30/25 Loc: CARD Attending Dr: El Espitia D.O. Ordering Physician: El Espitia D.O. Date of Service: 01/30/25 Procedure(s): CA echo doppler complete Accession Number(s): [id number] cc: MADDIE COREA ; El Espitia D.O. Patient Name: SHILPI MILLARD MR#: [id number] : 2005 Exam Date: 01/30/2025 Ordering Doctor: [...] AMBROSIO Signed By: 01/30/252011 DD/ 10 TD/TT: Stopboard Assembler: [facility] Radiology Study observation (narrative) [facility] CA ECHO DOPPLER COMPLETEOrde red By: Radiologist Radiology on 01-30-2025 [facility] [employer] Work Phone: Urinalysis macro (dipstick) panel (U)on 01-23-2025 Bilirubin, UA Negative Negative - 4(70) +++ mg/dL [facility] Blood, UA Positive Negative - 50 Rambo/mcL [facility] Comment on above: trace-intact Clarity, UA Clear [facility] re Color, UA Yellow [facility] Healthcar e Glucose, UA Negative Negative - 1999(110) ++++ mg/dL [facility] Interpretation and review of laboratory results Abnormal [facility] Ketones, UA Negative Negative - 160(16) ++++ mg/dL [facility] Leukocytes, UA Trace Negative - 500+++ Charity/mcL [facility] Nitrite, UA Negative Negative - Positive [facility] pH, UA 6 5 - 9 [facility] e Protein, UA Negative Negative - 1999(20) ++++ mg/dL [facility] Spec Grav, UA 1.025 1 - 1.03 [facility] Urobilinogen, UA 0.2 0.2 - 12 mg/dL [facility] Health[facility] e ALL CBC WITH AUTO DIFFon BASOPHILS ABSOLUTE AUTO 0 [facility] Basophils/100 WBC (Bld) 0.3 % 0.2 - 2.0 % [facility] Eosinophils/100 WBC (Bld) 0.3 % Low 0.9 - 7.0 % [facility] Erythrocyte distribution width (RBC) [Ratio] 13 % 11.0 - 15.0 % [facility] Hematocrit (Bld) [Volume fraction] 34.9 % Low 36.0 - 48.0 % [facility] Hemoglobin (Bld) [Mass/Vol] 11.9 g/dL Low 12.0 - 16.0 g/dL [facility] IMMATURE GRANULOCYTES ABS AUTO 0.07 High [facility] Immature granulocytes/100 WBC (Bld) 0.6 % High 0.0 - 0.5 % [facility] Interpretation and review of laboratory results Abnormal [facility] LYMPHOCYTES ABSOLUTE AUTO 1.5 [facility] Lymphocytes/100 WBC (Bld) 12.8 % Low 20.5 - 60.0 % [facility] MCH (RBC) [Entitic mass] 28.6 pg 26.7 - 34.0 pg [facility] MCHC (RBC) [Mass/Vol] 34.1 g/dL 29.9 - 35.2 g/dL [facility] MCV (RBC) [Entitic vol] 83.9 fL 81.0 - 99.0 fL [facility] MONOCYTES ABSOLUTE AUTO 0.7 [facility] Monocytes/100 WBC (Bld) 5.8 % 1.7 - 12.0 % [facility] NEUTROPHILS ABSOLUTE AUTO 9.6 High [facility] Neutrophils/100 WBC (Bld) 80.2 % High 43.0 - 75.0 % [facility] Platelet mean volume (Bld) [Entitic vol] 9.1 fL Low 9.5 - 13.5 fL [facility] EO # 0 [facility] PLT 316 [facility] RBC 4.16 Low [facility] WBC 12 High [facility] No Panel Informationon 01-01 STAPHYLOCOCCUS EPIDERMIDIS, HAEMOLYTICUS, LUGDUNENSIS, SAPROPHYTICUS (URINA 0 [facility] STAPHYLOCOCCUS EPIDERMIDIS, HAEMOLYTICUS, LUGDUNENSIS, SAPROPHYTICUS (URINA Not detected [facility] URINARY TRACT INFECTION (HTR X)on 01-01-2025 ACINETOBACTER BAUMANII 0 [facility] ACINETOBACTER BAUMANII Not detected [facility] TYLER ALBICANS, PARAPSILOSIS, TROPICALIS 0 [facility] TYLER ALBICANS, PARAPSILOSIS, TROPICALIS Not detected [facility] TYLER GLABRATA 0 [facility] TYLER GLABRATA Not detected [facility] TYLER KRUSEI 0 [facility] TYLER KRUSEI Not detected N[facility] CITROBACTER FREUNDII 0 [facility] CITROBACTER FREUNDII Not detected [facility] ENTEROBACTER AEROGENES, CLOACAE 0 [facility] Healthks re ENTEROBACTER AEROGENES, CLOACAE Not detected [facility] Healthks re ENTEROCOCCUS FAECALIS, FAECIUM 0 [facility] ENTEROCOCCUS FAECALIS, FAECIUM Not detected [facility] ESCHERICHIA COLI 0 [facility] ESCHERICHIA COLI Not detected [facility] KLEBSIELLA PNEUMONIAE, OXYTOCA 0 [facility] are KLEBSIELLA PNEUMONIAE, OXYTOCA Not detected [facility] are MORGANELLA MORGANII 0 [facility] MORGANELLA [...] Healthcare STREPTOCOCCUS PYOGENES (GROUP A STREP) 0 [facility] STREPTOCOCCUS PYOGENES (GROUP A STREP) Not detected [facility] Health[facility] e US OB 14+ WEEKS ANATOMY [...] short-term follow-up ultrasound is recommended. Electronically Signed:Mary blair signed by ARTURO PUENTE II, MD, PHD at 01-Jan-2025 08:23:57 AM [facility] Normal Not Available Comment on above: Order Comment: US OB ANATOMY SINGLE W US OB CERVICAL LENGTH Estimated Date of Delivery: None noted. Gestational Age as of 11/26/2024: Unknown Urinalysis macro (dipstick) panel (U)on 11-26-2024 Bilirubin, UA Negative Negative - 4(70) +++ mg/dL [facility] Blood, UA Negative Negative - 50 Rambo/mcL [facility] Clarity, UA Clear [facility] re Color, UA Yellow [facility] Healthcar e Glucose, UA Negative Negative - 1999(110) ++++ mg/dL [facility] Interpretation and review of laboratory results Normal [facility] Ketones, UA Negative Negative - 160(16) ++++ mg/dL [facility] Leukocytes, UA Negative Negative - 500+++ Charity/mcL [facility] Nitrite, UA Negative Negative - Positive [facility] pH, UA 6 5 - 9 [facility] Protein, UA Negative Negative - 1999(20) ++++ mg/dL [facility] Spec Grav, UA 1.025 1 - 1.03 [facility] Urobilinogen, UA 0.2 0.2 - 12 mg/dL [facility] Health[facility] e ALL CBC WITH AUTO DIFFon BASOPHILS ABSOLUTE AUTO 0 [facility] Basophils/100 WBC (Bld) 0.2 % 0.2 - 2.0 % [facility] Eosinophils/100 WBC (Bld) 0.2 % Low 0.9 - 7.0 % [facility] Erythrocyte distribution width (RBC) [Ratio] 13.5 % 11.0 - 15.0 % [facility] Hematocrit (Bld) [Volume fraction] 36.7 % 36.0 - 48.0 % [facility] Healthcar e Hemoglobin (Bld) [Mass/Vol] 12.5 g/dL 12.0 - 16.0 g/dL [facility] IMMATURE GRANULOCYTES ABS AUTO 0.04 High [facility] Immature granulocytes/100 WBC (Bld) 0.3 % 0.0 - 0.5 % [facility] Interpretation and review of laboratory results Abnormal [facility] LYMPHOCYTES ABSOLUTE AUTO 1.7 [facility] Lymphocytes/100 WBC (Bld) 14 % Low 20.5 - 60.0 % [facility] MCH (RBC) [Entitic mass] 27.9 pg 26.7 - 34.0 pg [facility] MCHC (RBC) [Mass/Vol] 34.1 g/dL 29.9 - 35.2 g/dL [facility] MCV (RBC) [Entitic vol] 81.9 fL 81.0 - 99.0 fL [facility] MONOCYTES ABSOLUTE AUTO 0.7 [facility] Monocytes/100 WBC (Bld) 5.6 % 1.7 - 12.0 % [facility] NEUTROPHILS ABSOLUTE AUTO 9.7 High [facility] Neutrophils/100 WBC (Bld) 79.7 % High 43.0 - 75.0 % [facility] Platelet mean volume (Bld) [Entitic vol] 9.2 fL Low 9.5 - 13.5 fL [facility] Healthc are TBH EO # 0 [facility] TBH PLT 314 [facility] TB RBC 4.48 [facility] SYSTEM [facility] TB WBC 12.2 High [facility] HCG ( test) Ql (U)o n 10-25-2024 Preg Test, Ur Positive Negative [facility] Urinalysis macro (dipstick) panel (U)on 10-25-2024 Bilirubin, UA Negative Negative - 4(70) +++ mg/dL [facility] Blood, UA Negative Negative - 50 Rambo/mcL [facility] Clarity, UA [facility] re Color, UA [facility] e Glucose, UA Negative Negative - 1999(110) ++++ mg/dL [facility] Interpretation and review of laboratory results Normal [facility] Ketones, UA Negative Negative - 160(16) ++++ mg/dL [facility] Leukocytes, UA Negative Negative - 500+++ Charity/mcL [facility] Nitrite, UA Negative Negative - Positive [facility] pH, UA 6 5 - 9 [facility] Protein, UA Negative Negative - 1999(20) ++++ mg/dL [facility] Spec Grav, UA 1.025 1 - 1.03 [facility] Urobilinogen, UA 0.2 0.2 - 12 mg/dL [facility] PREG QUANT HCGon 024 HCG QUANTITATIVE 8309 mIU[facility]mL [facility] Comment on above: 5-50 0.2-1 WEEK 50-500 1-2 WEEKS 100-5,000 2-3 WEEKS 500-10,000 3-4 WEEKS 1,000-50,000 4-5 WEEKS 10,000-100,000 5-6 WEEKS 15,000-200,000 6-8 WEEKS 10,000-100,000 2-3 [facility] [employer] [facility] TBH PREG QUANT HCGon 024 HCG QUANTITATIVE 3351 mIU/mL [facility] Comment on above: 5-50 0.2-1 WEEK 50-500 1-2 WEEKS 100-5,000 2-3 WEEKS 500-10,000 3-4 WEEKS 1,000-50,000 4-5 WEEKS 10,000-100,000 5-6 WEEKS 15,000-200,000 6-8 WEEKS 10,000-100,000 2-3 MONTHS [facility] [employer] [facility] ALL CBC WITH AUTO DIFFon BASOPHILS ABSOLUTE AUTO 0.0 [facility] Basophils/100 WBC (Bld) 0.3 % 0.2 - 2.0 % [facility] Eosinophils/100 WBC (Bld) 0.8 % Low 0.9 - 7.0 % [facility] Erythrocyte distribution width (RBC) [Ratio] 13.0 % 11.0 - 15.0 % [facility] Hematocrit (Bld) [Volume fraction] 37.4 % 36.0 - 48.0 % [facility] [employer] e Hemoglobin (Bld) [Mass/Vol] 12.1 g/dL 12.0 - 16.0 g/dL [facility] IMMATURE GRANULOCYTES ABS AUTO 0.02 [facility] Immature granulocytes/100 WBC (Bld) 0.3 % 0.0 - 0.5 % [facility] Interpretation and review of laboratory results Abnormal [facility] LYMPHOCYTES ABSOLUTE AUTO 1.5 [facility] Lymphocytes/100 WBC (Bld) 24.5 % 20.5 - 60.0 % [facility] MCH (RBC) [Entitic mass] 26.5 pg Low 26.7 - 34.0 pg [facility] MCHC (RBC) [Mass/Vol] 32.4 g/dL 29.9 - 35.2 g/dL [facility] MCV (RBC) [Entitic vol] 81.8 fL [...] bacterial skin contaminants 2 Days PERFORMED BY: [place] [address] PATHOLOGIST ACCESS SERVICES REPRESENTATIVE MADAN TRIVEDI M.D. Normal [facility] Comment on above: Performed By: #### C UU #### [address] [facility] Physician Referral [phone] [id number] #[id number] Normal [facility] ER URINE PROFILEon 3 Bilirubin Ql (U) Negative Normal NEGATIVE [facility] Comment on above: Performed By: #### E RUR, PREGU #### [facility] [address] [place] [address] Dr. Mikala Ramsay Clarity (U) CLEAR Normal CLEAR [facility] Comment on above: Performed By: #### E RUR, PREGU #### [facility] [address] [address] [address] Mikala Ramsay Color (U) LT. YELLOW Normal YELLOW [facility] Comment on above: Performed By: #### E RUR, PREGU #### [facility] [address] [place] [address] Dr. Mikala Ramsay ERUAHD A micrscopic examination will be performed if indicated. Normal [facility] Comment on above: Performed By: #### E RUR, PREGU #### [facility] [address] [place] [address] Dr. Mikala Ramsay Glucose Ql (U) Negative Normal NEGATIVE [facility] Comment on above: Performed By: #### E RUR, PREGU #### [facility] [address] [address] [address] Mikala Ramsay Hemoglobin Ql (U) Negative Normal NEGATIVE [facility] Comment on above: Performed By: #### E RUR, PREGU #### [facility] [address] [place] [address] Dr. Mikala Ramsay Ketones Ql (U) Negative Normal NEGATIVE [facility] Comment on above: Performed By: #### E RUR, PREGU #### [facility] [address] [place] [address] Dr. Mikala Ramsay LEUKOCYTES Negative Normal NEGATIVE [facility] Comment on above: Performed By: #### E RUR, PREGU #### [facility] [address] [place] [address] Dr. Mikala Ramsay Nitrite Ql (U) Negative Normal NEGATIVE [facility] Comment on above: Performed By: #### E RUR, PREGU #### [facility] [address] [place] [address] Dr. Mikala Ramsay pH (U) 8.0 [pH] Normal 5-9 [facility] Comment on above: Performed By: #### E RUR, PREGU #### [facility] [address] [place] [address] Dr. Mikala Ramsay SPEC GRAVITY 1.015 Normal 1.005-<=1.025 [facility] Comment on above: Performed By: #### E RUR, PREGU #### [facility] [address] [place] [address] Dr. Mikala Ramsay UA PROTEIN Negative Normal NEGATIVE/ TRACE [facility] Comment on above: Performed By: #### E RUR, PREGU #### [facility] [address] [place] [address] Dr. Mikala Ramsay UR MICRO IND NOT INDICATED Normal [facility] Comment on above: Performed By: #### E RUR, PREGU #### [facility] [address] [place], [place] [address] Dr. Mikala Ramsay Urobilinogen Qn (U) 0.2 {Jose'U}/dL Normal 0.2 - 1. 0 [facility] Comment on above: Performed By: #### E RUR, PREGU #### [facility] [address] [id number] Mikala Ramsay URon 11-25-2022 , QUAL Negative Normal NEGATIVE The [facility] Comment on above: Performed By: #### E RUR, PREGU #### [facility] [address] [address] [address] Mikala Ramsay US PELVIS TRANSVAGon 023 [...] JONI MORALES Date: 2022-11-25 17:05 Normal [facility] XR KUB 1 VIEWon 11-25-2022 XR [...] DOMO AN Date: 2022-11-25 14:56 Normal [facility] CBC AUTO DIFFon 09-06-2022 BASO # 0.0 103/ul Normal 0.0-0.1 [facility] Comment on above: Performed By: #### C BC #### [facility] [address] [address] [address] Mikala Ramsay Basophils/100 WBC (Bld) 0.3 % Normal 0.2-2.0 [facility] Comment on above: Performed By: #### C BC #### [facility] [address] [address] [address] Mikala Ramsay EO # 0.0 103/ul Normal 0.0-0.7 [facility] Comment on above: Performed By: #### C BC #### [facility] [address] [place] [address] Dr. Mikala Ramsay Eosinophils/100 WBC (Bld) 0.6 % Critically low 0.9-7.0 [facility] Comment on above: Performed By: #### C BC #### [facility] [address] [place] [address] Dr. Mikala Ramsay Erythrocyte distribution width (RBC) [Ratio] 14.0 % Normal 11.0-15.0 [facility] Comment on above: Performed By: #### C BC #### [facility] [address] [place] [address] Dr. Mikala Ramsay Hematocrit (Bld) [Volume fraction] 38.7 % Normal 36.0-48.0 [facility] Comment on above: Performed By: #### C BC #### [facility] [address] [place] [address] Dr. Mikala Ramsay Hemoglobin (Bld) [Mass/Vol] 12.5 g/dL Normal 12.0-16.0 [facility] Comment on above: Performed By: #### C BC #### [facility] [address] [place] [address] Dr. Mikala Ramsay IG # 0.02 10e3/ul Normal 0.00-0.03 [facility] Comment on above: Performed By: #### C BC #### [facility] [address] [place] [address] Dr. Mikala Ramsay IG % 0.3 % Normal 0.0-0.5 [facility] Comment on above: Performed By: #### C BC #### [facility] [address] [place] [address] Dr. Mikala Ramsay LYMPH # 1.2 103/ul Normal 1.2-3.8 [facility] Comment on above: Performed By: #### C BC #### [facility] [address] [place] [address] Dr. Mikala Ramsay Lymphocytes/100 WBC (Bld) 17.4 % Critically low 20.5-60.0 [facility] Comment on above: Performed By: #### C BC #### [facility] [address] [place] [address] Dr. Mikala Ramsay MANUAL DIFF REQ NO Normal [facility] Comment on above: Performed By: #### C BC #### [facility] [address] [place] [address] Dr. Mikala Ramsay MCH (RBC) [Entitic mass] 26.0 pg Critically low 26.7-34.0 [facility] Comment on above: Performed By: #### C BC #### [facility] [address] [place] [address] Dr. Mikala Ramsay MCHC (RBC) [Mass/Vol] 32.3 g/dL Normal 29.9-35.2 [facility] Comment on above: Performed By: #### C BC #### [facility] [address] [place] [address] Dr. Mikala Ramsay MCV (RBC) [Entitic vol] 80.5 fL Critically low 81.0-99.0 [facility] Comment on above: Performed By: #### C BC #### [facility] [address] [place] [address] Dr. Mikala Ramsay MONO # 0.4 103/ul Normal 0.3-0.8 [facility] Comment on above: Performed By: #### C BC #### [facility] [address] [place] [address] Dr. Mikala Ramsay Monocytes/100 WBC (Bld) 5.9 % Normal 1.7-12.0 [facility] Comment on above: Performed By: #### C BC #### [facility] [address] [place] [address] Dr. Mikala Ramsay NEUT # 5.0 103/ul Normal 1.4-6.5 [facility] Comment on above: Performed By: #### C BC #### [facility] [address] [place] [address] Dr. Mikala Ramsay Neutrophils/100 WBC (Bld) 75.5 % Critically high 43.0-75.0 [facility] Comment on above: Performed By: #### C BC #### [facility] [address] [place] [address] Dr. Mikala Ramsay Platelet mean volume (Bld) [Entitic vol] 9.2 fL Critically low 9.5-13.5 [facility] Comment on above: Performed By: #### C BC #### [facility] [address] [place] [address] Dr. Mikala Ramsay PLT 286 103/ul Normal 150-450 [facility] Comment on above: Performed By: #### C BC #### [facility] [address] [place] [address] Dr. Mikala Ramsay RBC 4.81 106/ul Normal 4.20-5.40 [facility] Comment on above: Performed By: #### C BC #### [facility] [address] [place] [address] Dr. Mikala Ramsay WBC 6.7 103/ul Normal 4.0-11.0 [facility] Comment on above: Performed By: #### C BC #### [facility] [address] [place] [address] Dr. Mikala Ramsay PREG HCG QUALon 09-06-2022 , QUAL Negative Normal NEGATIVE [facility] Comment on above: Performed By: #### P REG #### [facility] [address] [place] [address] Dr. Mikala Ramsay PROF CHEM 8 (BAS METB)on Anion gap [Moles/Vol] 11.1 mmol/L Normal [facility] Comment on above: Performed By: #### B MP #### [facility] [address] [address] [address] Mikala Ramsay Calcium [Mass/Vol] 9.0 mg/dL Normal 8.5-10.1 [facility] Comment on above: Performed By: #### B MP #### [facility] [address] [address] [address] Mikala Ramsay Chloride [Moles/Vol] 106 mmol/L Normal 98-107 [facility] Comment on above: Performed By: #### B MP #### [facility] [address] [address] [address] Mikala Ramsay CO2 [Moles/Vol] 25.6 mmol/L Normal 21.0-32.0 The [facility] Comment on above: Performed By: #### B MP #### [facility] [address] [address] [address] Mikala Ramsay Creatinine [Mass/Vol] 0.72 mg/dL Normal 0.55-1.02 [facility] Comment on above: Performed By: #### B MP #### [facility] [address] [place] [address] Dr. Mikala Ramsay EGFR-AF KENYAN >60 Normal >=60 The [facility] Comment on above: Performed By: #### B MP #### [facility] [address] [address] [address] Mikala Ramsay EGFR-NON AF KENYAN >60 Normal >=60 [facility] Comment on above: Performed By: #### B MP #### [facility] [address] [address] [address] Mikala Ramsay Glucose [Mass/Vol] 84 mg/dL Normal 74-106 The [facility] Comment on above: Performed By: #### B MP #### [facility] [address] [address] [address] Mikala Ramsay Potassium [Moles/Vol] 3.7 mmol/L Normal 3.5-5.1 The [facility] Comment on above: Performed By: #### B MP #### [facility] [address] [place] [address] Dr. Mikala Ramsay Sodium [Moles/Vol] 139 mmol/L Normal 136-145 [facility] Comment on above: Performed By: #### B MP #### [facility] [address] [place] [address] Dr. Mikala Ramsay Urea nitrogen [Mass/Vol] 10.0 mg/dL Normal 6.4-19.3 [facility] Comment on above: Performed By: #### B MP #### [facility] [address] [place] [address] Dr. Mikala Ramsay Urea nitrogen/Creatinine [Mass ratio] 13.9 mg/mg Normal [facility] Comment on above: Performed By: #### B MP #### [facility] [address] [place] [address] Dr. Mikala Ramsay CBC AUTO DIFFon 08-16-2022 BASO # 0.0 103/ul Normal 0.0-0.1 [facility] Comment on above: Performed By: #### C BC #### [facility] [address] [place] [address] Dr. Mikala Ramsay Basophils/100 WBC (Bld) 0.6 % Normal 0.2-2.0 [facility] Comment on above: Performed By: #### C BC #### [facility] [address] [place] [address] Dr. Mikala Ramsay EO # 0.1 103/ul Normal 0.0-0.7 [facility] Comment on above: Performed By: #### C BC #### [facility] [address] [place] [address] Dr. Mikala Ramsay Eosinophils/100 WBC (Bld) 1.3 % Normal 0.9-7.0 [facility] Comment on above: Performed By: #### C BC #### [facility] [address] [place] [address] Dr. Mikala Ramsay Erythrocyte distribution width (RBC) [Ratio] 14.5 % Normal 11.0-15.0 [facility] Comment on above: Performed By: #### C BC #### [facility] [address] [place] [address] Dr. Mikala Ramsay Hematocrit (Bld) [Volume fraction] 37.6 % Normal 36.0-48.0 [facility] Comment on above: Performed By: #### C BC #### [facility] [address] [place] [address] Dr. Mikala Ramsay Hemoglobin (Bld) [Mass/Vol] 12.2 g/dL Normal 12.0-16.0 [facility] Comment on above: Performed By: #### C BC #### [facility] [address] [place] [address] Dr. Mikala Ramsay IG # 0.02 10e3/ul Normal 0.00-0.03 [facility] Comment on above: Performed By: #### C BC #### [facility] [address] [place] [address] Dr. Mikala Ramsay IG % 0.3 % Normal 0.0-0.5 [facility] Comment on above: Performed By: #### C BC #### [facility] [address] [place] [address] Dr. Mikala Ramsay LYMPH # 2.1 103/ul Normal 1.2-3.8 [facility] Comment on above: Performed By: #### C BC #### [facility] [address] [place] [address] Dr. Mikala Ramsay Lymphocytes/100 WBC (Bld) 33.4 % Normal 20.5-60.0 [facility] Comment on above: Performed By: #### C BC #### [facility] [address] [place] [address] Dr. Mikala Ramsay MANUAL DIFF REQ NO Normal [facility] Comment on above: Performed By: #### C BC #### [facility] [address] [place] [address] Dr. Mikala Ramsay MCH (RBC) [Entitic mass] 26.2 pg Critically low 26.7-34.0 [facility] Comment on above: Performed By: #### C BC #### [facility] [address] [address] [address] Mikala Ramsay MCHC (RBC) [Mass/Vol] 32.4 g/dL Normal 29.9-35.2 [facility] Comment on above: Performed By: #### C BC #### [facility] [address] [address] [address] Mikala Ramsay MCV (RBC) [Entitic vol] 80.7 fL Critically low 81.0-99.0 [facility] Comment on above: Performed By: #### C BC #### [facility] [address] [place] [address] Dr. Mikala Ramsay MONO # 0.4 103/ul Normal 0.3-0.8 [facility] Comment on above: Performed By: #### C BC #### [facility] [address] [place] [address] Dr. Mikala Ramsay Monocytes/100 WBC (Bld) 6.2 % Normal 1.7-12.0 [facility] Comment on above: Performed By: #### C BC #### [facility] [address] [place] [address] Dr. Mikala Ramsay NEUT # 3.7 103/ul Normal 1.4-6.5 [facility] Comment on above: Performed By: #### C BC #### [facility] [address] [place] [address] Dr. Mikala Ramsay Neutrophils/100 WBC (Bld) 58.2 % Normal 43.0-75.0 [facility] Comment on above: Performed By: #### C BC #### [facility] [address] [place] [address] Dr. Mikala Ramsay Platelet mean volume (Bld) [Entitic vol] 9.3 fL Critically low 9.5-13.5 [facility] Comment on above: Performed By: #### C BC #### [facility] [address] [place] [address] Dr. Mikala Ramsay PLT 310 103/ul Normal 150-450 [facility] Comment on above: Performed By: #### C BC #### [facility] [address] [place], [place] [address] Dr. Mikala Ramsay RBC 4.66 106/ul Normal 4.20-5.40 [facility] Comment on above: Performed By: #### C BC #### [facility] [address] [place], [place] [address] Dr. Mikala Ramsay WBC 6.3 103/ul Normal 4.0-11.0 [facility] Comment on above: Performed By: #### C BC #### [facility] [address] [place], [place] [address] Dr. Mikala Ramsay XR elbow LT min 3V*on 2021 XR elbow LT min 3V* [facility] [employer] Other XR elbow LT min 3V* [facility] [employer] Other XR elbow LT min 3V* [address] [place] [address] [employer] Other XR elbow LT min 3V* [place] [address] [email or web address] [facility] [employer] Other XR elbow LT min 3V* XRay Report [facility] Other XR elbow LT min 3V* Signed [employer] Other XR elbow LT min 3V* Patient: Shilpi Millard MR#: [id number] [facility] Other XR elbow LT min 3V* : 2005 Acct:[id number] [employer] Other XR elbow LT min 3V* Age/Sex: 16 / F ADM Date: 01/10/22 [employer] Other XR elbow LT min 3V* Loc: XDUCLY [facility]: [facility] [employer] Other XR elbow LT min 3V* Attending Dr: Lynette Flores [employer]-[facility] [employer] Other XR elbow LT min 3V* Ordering Provider: LYNETTE FLORES [employer] Other XR elbow LT min 3V* Date of Service: 01/10/22 [employer] Other XR elbow LT min 3V* XR/XR elbow LT min 3V*: Injury of left elbow, initial encounter [employer] Other XR elbow LT min 3V* Copies to: LYNETTE FLORES [facility] [employer] Other XR elbow LT min 3V* XR elbow LT min 3V* 01/10/2022 10:51 AM [employer] Other XR elbow LT min 3V* SIGNS AND SYMPTOMS: Injury of left elbow, left elbow pain [employer] Other XR elbow LT min 3V* PROTOCOL: Frontal, lateral, and oblique radiographs of the left elbow [employer] Other XR elbow LT min 3V* COMPARISON: None [employer] Other XR elbow LT min 3V* FINDINGS: [employer] Other XR elbow LT min 3V* There is no fracture or dislocation. No joint effusion. No soft tissue swelling. The joint spaces [employer] Other XR elbow LT min 3V* are preserved. N [facility] Other XR elbow LT min 3V* XR/XR elbow LT min 3V* [employer] Other XR elbow LT min 3V* IMPRESSION: [facility] [employer] Other XR elbow LT min 3V* No acute bony injury. [employer] Other XR elbow LT min 3V* Impression dictated by: Johnson Grijalva M.D.01/10/2022 11:26 AM [employer] Other XR elbow LT min 3V* Dictation Location: [facility]IO-PC-13 [employer] Other XR elbow LT min 3V* Transcribed By: PWS 01/10/22 1126 [employer] Other XR elbow LT min 3V* Dictated By: Johnson Grijalva II, MD 01/10/22 [facility] [employer] Other XR elbow LT min 3V* Signed By: [employer] Other XR elbow LT min 3V* 01/10/22 1126 No [facility] Other Quick Strepon 11-03-2021 S. pyogenes Org specific cx Ql (Throat) Negative [employer] Other Quick Strep [employer] Other Vital Signs Date Time Vital Sign Value Performing Clinician Facility 04-15-2025 13:42-0400 Body mass index (BMI) [Ratio] 26.16 kg/m2 El Nupur DO Work Phone: [facility] 04-15-2025 13:42-0400 Body weight 69.13 kg El Nupur DO Work Phone: [facility] 04-15-2025 13:42-0400 Diastolic blood pressure 68 mm[Hg] El Nupur DO Work Phone: [facility] 04-15-2025 13:42-0400 Systolic blood pressure 100 mm[Hg] El Nupur DO Work Phone: [facility] 04-08-2025 11:15-0400 Body mass index (BMI) [Ratio] 26.02 kg/m2 Nhung LAUREANO Work Phone: [facility] 04-08-2025 11:15-0400 Body weight 68.77 kg Nhung LAUREANO Work Phone: [facility] 04-08-2025 11:15-0400 Diastolic blood pressure 70 mm[Hg] Nhung LAUREANO Work Phone: [facility] 04-08-2025 11:15-0400 Systolic blood pressure 102 mm[Hg] Nhung LAUREANO Work Phone: [facility] 03-27-2025 14:21-0400 Body weight 66.13 kg Bakari Howell MD Work Phone: [facility] 03-27-2025 14:21-0400 Diastolic blood pressure 64 mm[Hg] Bakari Howell MD Work Phone: [facility] 03-27-2025 14:21-0400 Systolic blood pressure 98 mm[Hg] Bakari Howell MD Work Phone: [facility] 03-20-2025 10:25-0400 Body mass index (BMI) [Ratio] 25.03 kg/m2 El Nupur DO Work Phone: [facility] 03-20-2025 10:25-0400 Body weight 66.13 kg El Nupur DO Work Phone: [facility] 03-20-2025 10:25-0400 Diastolic blood pressure 74 mm[Hg] El Nupur DO Work Phone: [facility] 03-20-2025 10:25-0400 Systolic blood pressure 104 mm[Hg] El Nupur DO Work Phone: [facility] 03-06-2025 10:47-0400 Body mass index (BMI) [Ratio] 23.95 kg/m2 El Nupur DO Work Phone: [facility] 03-06-2025 10:47-0400 Body weight 63.28 kg El Nupur DO Work Phone: [facility] 03-06-2025 10:47-0400 Diastolic blood pressure 76 mm[Hg] El Nupur DO Work Phone: [facility] 03-06-2025 10:47-0400 Systolic blood pressure 102 mm[Hg] El Nupur DO Work Phone: [facility] 02-20-2025 10:58-0400 Body mass index (BMI) [Ratio] 23.34 kg/m2 Nhung Ybarra PA Work Phone: [facility] 02-20-2025 10:58-0400 Body weight 61.69 kg Nhung Torresey PA Work Phone: [facility] 02-20-2025 10:58-0400 Diastolic blood pressure 68 mm[Hg] Nhung Ybarra PA Work Phone: [facility] 02-20-2025 10:58-0400 Systolic blood pressure 100 mm[Hg] Nhung Ybarra PA Work Phone: [facility] 01-23-2025 10:47-0500 Body mass index (BMI) [Ratio] 22.66 kg/m2 El Nupur DO Work Phone: [facility] 01-23-2025 10:47-0500 Body weight 59.88 kg El Nupur DO Work Phone: [facility] 01-23-2025 10:47-0500 Diastolic blood pressure 68 mm[Hg] El Nupur DO Work Phone: [facility] 01-23-2025 10:47-0500 Systolic blood pressure 120 mm[Hg] El Nupur DO Work Phone: [facility] 12-30-2024 14:44-0500 Body mass index (BMI) [Ratio] 21.63 kg/m2 El Nupur DO Work Phone: [facility] 12-30-2024 14:44-0500 Body weight 57.15 kg El Nupur DO Work Phone: [facility] 12-30-2024 14:44-0500 Diastolic blood pressure 66 mm[Hg] El Nupur DO Work Phone: [facility] 12-30-2024 14:44-0500 Systolic blood pressure 100 mm[Hg] El Nupur DO Work Phone: [facility] 10-25-2024 11:17-0500 Body mass index (BMI) [Ratio] 20.08 kg/m2 [facility] Nurse [facility] 10-25-2024 11:17-0500 Body weight 53.07 kg Nom Nurse [facility] 10-25-2024 11:17-0500 Diastolic blood pressure 68 mm[Hg] [facility] Nurse [facility] 10-25-2024 11:17-0500 Systolic blood pressure 102 mm[Hg] [facility] Nurse [facility] 07-23-2024 09:34-0400 Body mass index (BMI) [Ratio] 20.08 kg/m2 El Nupur DO Work Phone: [facility] 07-23-2024 09:34-0400 Body weight 53.07 kg El Nupur DO Work Phone: [facility] 07-23-2024 09:34-0400 Diastolic blood pressure 68 mm[Hg] El Nupur DO Work Phone: [facility] 07-23-2024 09:34-0400 Systolic blood pressure 104 mm[Hg] El Nupur DO Work Phone: [facility] 04-18-2024 14:41-0400 Body height 162.56 cm REGULATORY SERVICES CONSULTANTBetzy Almendarez Work Phone: [facility] 04-18-2024 14:41-0400 Body mass index (BMI) [Ratio] 20.8 kg/m2 REGULATORY SERVICES CONSULTANTBetzy Almendarez Work Phone: [facility] 04-18-2024 14:41-0400 Body temperature 98.8 [degF] TRINITY Almendarez Work Phone: [facility] 04-18-2024 14:41-0400 Body weight 54.99 kg TRINTIY Almendarez Work Phone: [facility] 04-18-2024 14:41-0400 Heart rate 67 /min TRINITY Almendarez Work Phone: [facility] 04-18-2024 14:41-0400 Respiratory rate 18 /min REGULATORY SERVICES CONSULTANT Isabella Tanesha Work Phone: [facility] 04-18-2024 14:41-0400 SaO2% (BldA) [Mass fraction] 98 % TRINITY Almendarez Work Phone: [facility] 01-11-2023 17:10-0500 Body height 163.83 cm Lynette Flores Other [facility] Other 01-11-2023 17:10-0500 Body mass index (BMI) [Ratio] 19.94 kg/m2 Lynette Batesault Other [facility] Other 01-11-2023 17:10-0500 Body temperature 98.2 [degF] Lynette Batesault Other [facility] Other 01-11-2023 17:10-0500 Body weight 53.52 kg Lynette Flores Other [facility] Other 01-11-2023 17:10-0500 Respiratory rate 18 /min Lynette Flores Other [facility] Other 01-11-2023 17:10-0500 SaO2% (BldA) [Mass fraction] 99 % Lynette Batesault Other [facility] Other 12-13-2022 16:30-0500 Body height 162.56 cm Lanny Nieves Other [facility] Other 12-13-2022 16:30-0500 Body mass index (BMI) [Ratio] 20.25 kg/m2 Lanny Nieves Other [facility] Other 12-13-2022 16:30-0500 Body temperature 97.2 [degF] Lanny Nieves Other [facility] Other 12-13-2022 16:30-0500 Body weight 53.52 kg Lanny Nieves Other [facility] Other 12-13-2022 16:30-0500 Respiratory rate 18 /min Lanny Nieves Other [facility] Other 12-13-2022 16:30-0500 SaO2% (BldA) [Mass fraction] 99 % Lanny Nieves Other [facility] Other 07-04-2022 17:25-0400 Body height 163.83 cm Lynette Batesault Other [facility] Other 07-04-2022 17:25-0400 Body mass index (BMI) [Ratio] 19.77 kg/m2 Lynette Batesault Other [facility] Other 07-04-2022 17:25-0400 Body temperature 97.8 [degF] Lynette Conrado Other [facility] Other 07-04-2022 17:25-0400 Body weight 53.07 kg Lynette Conrado Other [facility] Other 07-04-2022 17:25-0400 Diastolic blood pressure 65 mm[Hg] Lynette Conrado Other [facility] Other 07-04-2022 17:25-0400 Respiratory rate 18 /min Lynette Conrado Other [facility] Other 07-04-2022 17:25-0400 SaO2% (BldA) [Mass fraction] 100 % Lynette Flores Other [facility] [employer] Other 07-04-2022 17:25-0400 Systolic blood pressure 110 mm[Hg] Lynette Flores Other [facility] Other 03-16-2022 14:01-0400 Blood Pressure Location Iker WNEK [facility] [place] 03-16-2022 14:01-0400 Body temperature 97.7 [degF] Iker WNEK [facility] [place] 03-16-2022 14:01-0400 Diastolic blood pressure 68 mm[Hg] Iker WNEK [facility] [place] 03-16-2022 14:01-0400 Heart rate 76 /min Iker WNEK [facility] [place] 03-16-2022 14:01-0400 Respiratory rate 18 /min Iker WNEK [facility] [place] 03-16-2022 14:01-0400 SaO2% (BldA) [Mass fraction] 98 % Iker WNEK [facility] [place] 03-16-2022 14:01-0400 Systolic blood pressure 120 mm[Hg] Iker WNEK [facility] [place] 03-02-2022 14:34-0400 Blood Pressure Location Iker WNEK [facility] [place] 03-02-2022 14:34-0400 Body temperature 98.24 [degF] Iker WNEK [facility] [place] 03-02-2022 14:34-0400 Diastolic blood pressure 60 mm[Hg] Iker WNEK [facility] [place] 03-02-2022 14:34-0400 Heart rate 76 /min Iker WNEK [facility] [place] 03-02-2022 14:34-0400 Respiratory rate 18 /min Iker WNEK [facility] [place] 03-02-2022 14:34-0400 SaO2% (BldA) [Mass fraction] 98 % Iker WNEK [facility] [place] 03-02-2022 14:34-0400 Systolic blood pressure 118 mm[Hg] Iker WNEK [facility] [place] 02-25-2022 10:15-0400 Body height 163.83 cm Maddie Dickson Other [facility] Other 02-25-2022 10:15-0400 Body mass index (BMI) [Ratio] 19.26 kg/m2 Maddie Dickson Other [facility] Other 02-25-2022 10:15-0400 Body temperature 97.1 [degF] Maddie Dickson Other [facility] Other 02-25-2022 10:15-0400 Body weight 51.71 kg Maddie Dickson Other [facility] Other 02-25-2022 10:15-0400 SaO2% (BldA) [Mass fraction] 99 % Maddie Dickson Other [facility] Other 02-22-2022 13:23-0400 Blood Pressure Location [facility]li [place] [place] 02-22-2022 13:23-0400 Body temperature 97.34 [degF] Marli [place] [place] 02-22-2022 13:23-0400 Diastolic blood pressure 70 mm[Hg] Marli [place] [place] 02-22-2022 13:23-0400 Heart rate 80 /min [facility]li [place] [place] 02-22-2022 13:23-0400 Respiratory rate 16 /min [facility]li [place] [facility] [place] 02-22-2022 13:23-0400 SaO2% (BldA) [Mass fraction] 98 % [facility]li [place] [place] 02-22-2022 13:23-0400 Systolic blood pressure 118 mm[Hg] [facility]li [place] [place] 01-10-2022 11:30-0500 Body height 162.56 cm Lynette Flores Other [facility] Other 01-10-2022 11:30-0500 Body mass index (BMI) [Ratio] 21.45 kg/m2 Lynette Flores Other [facility] Other 01-10-2022 11:30-0500 Body temperature 96.9 [degF] Lynette Flores Other [facility] Other 01-10-2022 11:30-0500 Body weight 56.7 kg Lynette Flores Other [facility] Other 01-10-2022 11:30-0500 Diastolic blood pressure 69 mm[Hg] Lynette Flores Other [facility] Other 01-10-2022 11:30-0500 Respiratory rate 18 /min Lynette Flores Other [facility] Other 01-10-2022 11:30-0500 SaO2% (BldA) [Mass fraction] 99 % Lynette Flores Other [facility] Other 01-10-2022 11:30-0500 Systolic blood pressure 121 mm[Hg] Lynette Flores Other [facility] Other 11-03-2021 17:45-0500 Body height 162.56 cm Maddie Dickson Other [facility] Other 11-03-2021 17:45-0500 Body mass index (BMI) [Ratio] 21.8 kg/m2 Maddie Dickson Other [facility] Other 11-03-2021 17:45-0500 Body temperature 97.8 [degF] Maddie Dickson Other [facility] Other 11-03-2021 17:45-0500 Body weight 57.61 kg Maddie Dickson Other [facility] Other 11-03-2021 17:45-0500 Respiratory rate 18 /min Maddie Dickson Other [facility] Other 11-03-2021 17:45-0500 SaO2% (BldA) [Mass fraction] 99 % Maddie Dickson Other [facility] Other Encounters Encounter Date Encounter Type Care Provider Facility Start: 04-22-2025 End: 04-22-2025 ambulatory NHUNG YBARRA Not Available Start: 04-17-2025 End: 04-17-[address] [facility] Start: 04-15-2025 End: 04-15-2025 Bamboo [...] Start: 04-08-2025 End: 04-08-2025 Bamboo flowsheet Nhung Ybarra PA Work Phone: [facility] Start: 04-08-2025 [...] NHUNG YBARRA Not Available Start: 04-03-[address] [facility] Start: 03-27-2025 End: 03-27-2025 Office consultation new/estab patient 60 min Bakari Howell MD Work Phone: [facility] Comment on above: SGA (small for gesta tional age), 1,000-1,249 grams (Primary Dx); Poor growth affecting management of mother in third trimester, single or unspecified fetus Start: 03-27-2025 End: 03-27-2025 ambulatory [facility] Start: 03-26-2025 End: 03-26-2025 Telephone encounter Melina Head RN [facility] Start: 03-25-2025 End: 03-25-2025 Chart abstracting Bakari Howell MD Work Phone: [facility] Start: 03-25-2025 End: 03-25-2025 Clinisync Result Encounter El Nupur DO Work Phone: [facility] Unsolicited Start: 03-25-2025 End: 03-25-2025 Clinisync Result Encounter El Nupur DO Work Phone: [facility] Unsolicited Start: 03-24-2025 End: 03-24-2025 Orders Only Estrellita Weinberg RN [facility] Comment on above: SGA (small for gesta tional age) (Primary Dx) Start: 03-20-2025 End: 03-20-2025 Bamboo flowsheet El Nupur DO Work Phone: [facility] Start: 03-20-2025 End: 03-20-2025 Bamboo flowsheet El Nupur DO Work Phone: [facility] Start: 03-20-2025 End: 03-20-2025 ambulatory EL NUPUR Not Available Start: 03-20-2025 End: 03-20-2025 flow sheet El Nupur DO Work Phone: [facility] Comment on above: Third trimester preg lucy; 32 weeks gestation of Start: 03-20-2025 End: 03-20-2025 ambulatory EL NUPUR Not Available Start: 03-06-2025 End: 03-06-2025 flow sheet El Nupur DO Work Phone: [facility] Comment on above: Third trimester preg lucy; 30 weeks gestation of ; Vaginal discharge Start: 03-06-2025 End: 03-06-2025 ambulatory EL NUPUR Not Available Start: 02-20-2025 End: 02-20-2025 Bamboo flowsheet Nhung LAUREANO Work Phone: [facility] Start: 02-20-2025 End: 02-20-2025 Bamboo flowsheet Nhung LAUREANO Work Phone: [facility] Start: 02-20-2025 End: 02-20-2025 ambulatory NHUNG YBARRA Not Available Start: 02-20-2025 End: 02-20-2025 flow sheet Nhung LAUREANO Work Phone: [facility] Comment on above: Third trimester [...] Start: 04-18-2024 End: 04-18-2024 ambulatory Isabella Almendarez [facility] Work Phone: Start: 04-18-2024 End: 04-18-2024 Departed Referred TRINITY Almendarez Work Phone: [facility] [place] Work Phone: Start: 04-18-2024 End: 04-18-2024 Patient encounter procedure TRINITY Almendarez Work Phone: [facility] Work Phone: Start: 12-29-2023 ambulatory Facility:[facility] Start: 01-11-2023 End: 01-11-2023 ambulatory Lynette Conrado Other [facility] Other Start: 01-11-2023 Office outpatient vi sit 25 minutes Lynette Conrado [facility] Start: 12-13-2022 End: 12-13-2022 ambulatory Lanny Nieves Other [facility] Other Start: 12-13-2022 Office outpatient vi sit 15 minutes Lanny Nieves [facility] Start: 11-25-2022 End: 11-25-2022 ambulatory NONE LISTED REQUEST Facility:[facility] Start: 11-03-2022 End: 11-03-2022 ambulatory NONE LISTED REQUEST Facility:[facility] Start: 09-06-2022 End: 09-06-[address] GREG BO . Facility: Start: 08-18-2022 End: 08-18-2022 ambulatory MD Iker Olivas Work Phone: [facility] Work Phone: Start: 08-18-2022 End: 08-18-2022 Departed Referred MD Iker Olivas Work Phone: [facility] [place] Start: 08-16-2022 End: 08-17-[address] DOCTOR BERRY Facility: Start: 07-04-2022 End: 07-04-2022 ambulatory Lynette Conrado Other [facility] Other Start: 07-04-2022 Office outpatient vi sit 15 minutes Lynette Conrado [facility] Start: 05-05-2022 End: 05-05-2022 ambulatory IKER OLIVAS [facility] Start: 03-16-2022 End: 03-16-2022 Patient encounter procedure Iker OLIVAS [facility] [place] Start: 03-02-2022 End: 03-02-2022 Patient encounter procedure Iker Eddy JHONNYALYX [facility] [place] Start: 02-25-2022 End: 02-25-2022 ambulatory Maddie Yessi Other [facility] Other Start: 02-25-2022 Office outpatient vi sit 25 minutes Maddie Yessi [facility] Start: 02-22-2022 End: 02-22-2022 Patient encounter procedure Marli Rosenberg [facility] [place] Start: 01-10-2022 End: 01-10-2022 ambulatory Lynette Flores Other [facility] Other Start: 01-10-2022 Office outpatient vi sit 15 minutes Lynettemarquez Flores [facility] Start: 11-03-2021 End: 11-03-2021 ambulatory Maddie Yessi Other [facility] Other Start: 11-03-2021 Office outpatient vi sit 15 minutes Maddie Yessi [facility] Procedures Date Procedure Procedure Detail Performing Clinician Start: 04-08-2025 US OB BPP W NON-STRESS El Nupur DO Work Phone: Start: 04-08-2025 Urnls dip stick/tabl et rgnt non-auto w/o micrscp Nhung LAUREANO Work Phone: Start: 03-25-2025 US OB BPP W NON-STRESS El Npuur DO Work Phone: Start: 03-06-2025 Urnls dip stick/tabl et rgnt non-auto w/o micrscp El Nupur DO Work Phone: Start: 02-20-2025 Urnls dip stick/tabl et rgnt non-auto w/o micrscp Nhung LAUREANO Work Phone: Start: 02-13-2025 [facility] UA (CLEAN/CATCH) LOCK FITTER/MICRO IF IND. El Nupur DO Work Phone: [...] Td Vaccines (7 - Td or Tdap) [facility] Start: 03-27-2026 Tobacco Screening Tobacco Screening [facility] Start: 07-21-2025 Influenza vaccination [facility] Start: 04-24-2025 End: 03-24-2026 US MFM with or without consult US MFM with or without consult Imaging Routine SGA (small for gestational age) Expected: 04/24/2025 (Approximate), Expires: 03/24/2026 [facility] Work Phone: Comment on above: Expected: 04/24/2025 (Approximate), Expires: 03/24/2026 Start: 04-22-2025 End: 04-22-2025 Patient encounter procedure 04/22/2025 1:50 PM EDT Routine [facility] [address] [place] [id number] Nhung Ybarra PA [address] [place] [address] [facility] Start: 04-17-2025 End: 04-17-2025 Patient encounter procedure 04/17/2025 3:15 PM EDT Appointment [facility] [place] [address] [facility] [address] [place] [address] [facility] [place] Start: 04-15-2025 End: 04-15-2026 CULTURE, GROUP B [...] 2:00 PM EDT Telemedicine [facility] [address] [place] [id number] Bakari Howell MD [address] [place] [address] [facility] Start: 03-27-2025 End: 03-27-2025 Patient encounter procedure 03/27/2025 1:00 PM EDT Appointment [facility] [place] [address] [facility] [address] [place] [phone] [facility] [place] Start: 03-20-2025 End: 03-20-2025 Patient encounter procedure [facility] Comment on above: Arrived Start: 03-20-2025 End: 03-20-2025 Professional / ancillary services management 03/20/2025 9:30 AM EDT Ancillary Procedure [facility] [address] [place] [id number] [facility] Start: 2025 Screening for malign ant neoplasm of cervix Pap Smear [facility] Start: 03-06-2025 End: 03-06-2025 Patient encounter procedure 03/06/2025 10:40 AM EDT Routine [facility] [address] [place] [phone] El Espitia, DO [address] [place] [address] [facility] Start: 03-06-2025 End: 03-06-2025 Professional / ancillary services management 03/06/2025 10:00 AM EDT Ancillary Procedure [facility] [address] [place] [phone] [facility] Start: 02-20-2025 End: 02-20-2026 US for US OB limited 1+ fetuses Imaging Routine Encounter for follow-up ultrasound of anatomy Expected: 02/20/2025 (Approximate), Expires: 02/20/2026 [facility] Comment on above: Expected: 02/20/2025 (Approximate), Expires: 02/20/2026 Start: 02-20-2025 End: 02-20-2025 Patient encounter procedure 02/20/2025 10:20 AM EDT Routine [facility] [address] [place] [phone] Nhung Ybarra PA [address] [place], [place] [id number] [facility] Start: 01-23-2025 End: 01-23-2026 CBC panel - Blood by Automated count CBC Lab Routine Diabetes mellitus screening Expected: 01/23/2025 (Approximate), Expires: 01/23/2026 [facility] Work Phone: Comment on above: Expected: 01/23/2025 (Approximate), Expires: 01/23/2026 Start: 01-23-2025 End: 01-23-2026 Measurement of glucose 1 hour after glucose challenge for glucose tolerance test Glucose tolerance, 1 hour Lab Routine Diabetes mellitus screening Expected: 01/23/2025 (Approximate), Expires: 01/23/2026 [facility] Comment on above: Expected: 01/23/2025 (Approximate), Expires: 01/23/2026 Start: 01-23-2025 End: 01-23-2025 Patient encounter procedure 01/23/2025 10:20 AM EST Routine [facility] [address] [place] [phone] El Espitia DO [address] [place], [place] [id number] [facility] Start: 12-30-2024 End: 12-30-2025 12 lead ECG ECG 12 lead unit performed ECG Routine Near syncope Lightheadedness Expected: 12/30/2024 (Approximate), Expires: 12/30/2025 [facility] Comment on above: Expected: 12/30/2024 (Approximate), Expires: 12/30/2025 Start: 12-30-2024 End: 12-30-2026 Echocardiogram 2D complete Echocardiogram 2D complete Echocardiography Routine Near syncope Lightheadedness Expected: 12/30/2024 (Approximate), Expires: 12/30/2026 [facility] Comment on above: Expected: 12/30/2024 (Approximate), Expires: 12/30/2026 Start: 12-30-2024 End: 12-30-2024 Patient encounter procedure 12/30/2024 11:30 AM EST Routine [facility] [address] [place] [address] El Espitia DO [address] [place] [address] [facility] Start: 12-30-2024 End: 12-30-2024 Professional / ancillary services management 12/30/2024 10:30 AM EST Ancillary Procedure [facility] [address] [place] [address] [facility] Start: 11-26-2024 End: 01-24-2025 [...] Routine [facility] [address] [place] [address] Nupur, El, [address] [place] [address] [facility] Start: 10-25-2024 End: 10-25-2025 ABO/Rh ABO/Rh Lab Routine Missed menses , unspecified gestational age Expected: 10/25/2024 (Approximate), Expires: 10/25/2025 [facility] Comment on above: Expected: 10/25/2024 (Approximate), Expires: 10/25/2025 Start: 10-25-2024 End: 10-25-2025 Blood type and Indirect antibody screen panel - Blood Type and screen Lab Routine Missed menses , unspecified gestational age Expected: 10/25/2024 (Approximate), Expires: 10/25/2025 [facility] Work Phone: Comment on above: Expected: 10/25/2024 (Approximate), Expires: 10/25/2025 Start: 10-25-2024 End: 10-25-2025 Drugs of abuse panel - Urine by Screen method Rapid drug screen, urine Lab Routine , unspecified gestational age Encounter for supervision of normal first in first trimester Expected: 10/25/2024 (Approximate), Expires: 10/25/2025 [facility] Comment on above: Expected: 10/25/2024 (Approximate), Expires: 10/25/2025 Start: 10-25-2024 End: 10-25-2025 US Pelvis transvaginal US OB transvaginal Imaging Routine Missed menses Expected: 10/25/2024 (Approximate), Expires: 10/25/2025 [facility] Comment on above: Expected: 10/25/2024 (Approximate), Expires: 10/25/2025 Start: 07-23-2024 End: 07-23-2025 Antimullerian hormone (AMH) Antimullerian hormone (AMH) Lab Routine Encounter for infertility PCOS (polycystic ovarian syndrome) Expected: 07/23/2024 (Approximate), Expires: 07/23/2025 [facility] Comment on above: Expected: 07/23/2024 (Approximate), Expires: 07/23/2025 Start: 07-23-2024 End: 07-23-2025 DHEA DHEA Lab Routine PCOS (polycystic ovarian syndrome) Expected: 07/23/2024 (Approximate), Expires: 07/23/2025 [facility] Comment on above: Expected: 07/23/2024 (Approximate), Expires: 07/23/2025 Start: 07-23-2024 End: 07-23-2025 US for US PELVIS-TRANSVAG IF INDICATED Imaging Routine PCOS (polycystic ovarian syndrome) Expected: 07/23/2024 (Approximate), Expires: 07/23/2025 [facility] Comment on above: Expected: 07/23/2024 (Approximate), Expires: 07/23/2025 Start: 07-21-2024 COVID-19 Vaccine () COVID-19 Vaccine () [facility] Start: 07-21-2024 Influenza vaccination Influenza Vacc ine (#1) [facility] Start: 04-19-2024 Bacteria identified in Urine by Culture [facility] Start: 04-18-2024 Bacteria identified in Urine by Culture [facility] Start: 2023 DTaP,Tdap and Td Vaccines (1 - Tdap) DTaP,Tdap and Td Vaccines (1 - Tdap) [facility] Start: 2022 Adult BMI Screening Adult BMI Screen ing [facility] Start: 2016 Depression Screening Depression Scre ening [facility] Start: 2016 Tobacco Screening Tobacco Screening [facility] Start: 2004 Screening for Chlamy kiera trachomatis Chlamydia Screening [facility] Bacteria identified in Urine by Culture Urine culture Microbiology Routine Missed menses Ordered: 10/25/2024 [facility] Comment on above: Ordered: 10/25/2024 Bacteria identified in Urine by Culture Urine culture Microbiology Routine UTI symptoms Ordered: 12/30/2024 [facility] Work Phone: Comment on above: Ordered: 12/30/2024 CBC W Auto Different ial panel - Blood CBC and differential Lab Routine PCOS (polycystic ovarian syndrome) Ordered: 07/23/2024 [facility] Comment on above: Ordered: 07/23/2024 CBC W Auto Different ial panel - Blood CBC and differential Lab Routine Missed menses , unspecified gestational age Ordered: 10/25/2024 [facility] Comment on above: Ordered: 10/25/2024 CBC W Auto Different ial panel - Blood CBC and differential Lab Routine Near syncope Lightheadedness Ordered: 12/30/2024 [facility] Comment on above: Ordered: 12/30/2024 CHLAMYDIA TRACHOMATI S (GENITO/STI) CHLAMYDIA TRACHOMATIS (GENITO/STI) Lab Routine Screen for STD (sexually transmitted disease) Ordered: 02/20/2025 [facility] Comment on above: Ordered: 02/20/2025 CHLAMYDIA TRACHOMATI S (GENITO/STI) CHLAMYDIA TRACHOMATIS (GENITO/STI) Lab Routine Vaginal discharge Ordered: 03/06/2025 [facility] Comment on above: Ordered: 03/06/2025 DHEA-sulfate DHEA-sulfate Lab Routine PCOS (polycystic ovarian syndrome) Ordered: 07/23/2024 [facility] Comment on above: Ordered: 07/23/2024 Estradiol Estradiol Lab Ro utine Encounter for infertility PCOS (polycystic ovarian syndrome) Ordered: 07/23/2024 [facility] Comment on above: Ordered: 07/23/2024 Follicle stimulating hormone Follicle stimulating hormone Lab Routine PCOS (polycystic ovarian syndrome) Ordered: 07/23/2024 [facility] Comment on above: Ordered: 07/23/2024 hCG, quantitative, hCG, quantitative, Lab Routine PCOS (polycystic ovarian syndrome) Ordered: 07/23/2024 [facility] Work Phone: Comment on above: Ordered: 07/23/2024 Hemoglobin A1c/Hemoglobin.total in Blood Hemoglobin A1c Lab Routine Encounter for infertility PCOS (polycystic ovarian syndrome) Ordered: 07/23/2024 [facility] Comment on above: Ordered: 07/23/2024 Hemoglobin A1c/Hemoglobin.total in Blood Hemoglobin A1c Lab Routine Missed menses , unspecified gestational age Ordered: 10/25/2024 [facility] Comment on above: Ordered: 10/25/2024 Hepatitis B virus surface Ag [Presence] in Serum or Plasma by Immunoassay Hepatitis B surface antigen Lab Routine Missed menses , unspecified gestational age Ordered: 10/25/2024 [facility] Comment on above: Ordered: 10/25/2024 Hepatitis C virus Ab [Presence] in Serum or Plasma by Immunoassay Hepatitis C antibody Lab Routine Missed menses , unspecified gestational age Ordered: 10/25/2024 [facility] Comment on above: Ordered: 10/25/2024 HIV-1/HIV-2 antigen/antibody combination immunoassay HIV-1 and HIV-2 antibodies Lab Routine Missed menses , unspecified gestational age Ordered: 10/25/2024 [facility] Comment on above: Ordered: 10/25/2024 Luteinizing hormone Luteinizing hormone Lab Routine PCOS (polycystic ovarian syndrome) Ordered: 07/23/2024 [facility] Comment on above: Ordered: 07/23/2024 Neisseria gonorrhoea e DNA [Presence] in Unspecified specimen by YUNG with probe detection Neisseria gonorrhea DNA probe, direct Lab Routine Screen for STD (sexually transmitted disease) Ordered: 02/20/2025 [facility] Comment on above: Ordered: 02/20/2025 Neisseria gonorrhoea e DNA [Presence] in Unspecified specimen by YUNG with probe detection Neisseria gonorrhea DNA probe, direct Lab Routine Vaginal discharge Ordered: 03/06/2025 [facility] Comment on above: Ordered: 03/06/2025 Progesterone Progesterone Lab Routine Encounter for infertility PCOS (polycystic ovarian syndrome) Ordered: 07/23/2024 [facility] Comment on above: Ordered: 07/23/2024 Reagin Ab [Presence] in Serum by RPR RPR Lab Routine Missed menses , unspecified gestational age Ordered: 10/25/2024 [facility] Comment on above: Ordered: 10/25/2024 Rubella antibody, IgG Rubella an tibody, IgG Lab Routine Missed menses , unspecified gestational age Ordered: 10/25/2024 [facility] Comment on above: Ordered: 10/25/2024 SURESWAB(R) ADVANCED VAGINITIS PLUS, TMA SURESWAB(R) ADVANCED VAGINITIS PLUS, TMA Pathology and Cytology Routine Screen for STD (sexually transmitted disease) Ordered: 02/20/2025 [facility] Work Phone: Comment on above: Ordered: 02/20/2025 SURESWAB(R) ADVANCED VAGINITIS PLUS, TMA SURESWAB(R) ADVANCED VAGINITIS PLUS, TMA Pathology and Cytology Routine Vaginal discharge Ordered: 03/06/2025 [facility] Work Phone: Comment on above: Ordered: 03/06/2025 Thyrotropin [Units/volume] in Serum or Plasma TSH Lab Routine PCOS (polycystic ovarian syndrome) Ordered: 07/23/2024 [facility] Comment on above: Ordered: 07/23/2024 Thyrotropin [Units/volume] in Serum or Plasma TSH Lab Routine Near syncope Lightheadedness Ordered: 12/30/2024 [facility] Comment on above: Ordered: 12/30/2024 Thyroxine (T4) free [Mass/volume] in Serum or Plasma T4, free Lab Routine PCOS (polycystic ovarian syndrome) Ordered: 07/23/2024 [facility] Comment on above: Ordered: 07/23/2024 Immunizations Immunization Date Immunization Notes Care Provider Gulshan nunes 12-10-2020 hepatitis A vaccine, pediatric/adolescent dosage, 2 dose schedule Marli Rosenberg [facility] 12-10-2020 meningococcal polysaccharide (groups A, C, Y and W-135) diphtheria toxoid conjugate vaccine (MCV4P) Marli Rosenberg [facility] 09-01-2016 meningococcal ACWY vaccine, unspecified formulation Marli Highlands [facility] 09-01-2016 tetanus toxoid, redu matthieu diphtheria toxoid, and acellular pertussis vaccine, adsorbed Marliannia Rosenberg [facility] [place] 12-10-2013 influenza virus vacc ine, unspecified formulation Marli Rosenberg [facility] [place] 12-11-2008 influenza virus vacc ine, unspecified formulation Marli Rosenberg [facility] [place] 05-01-2008 diphtheria, tetanus toxoids and acellular pertussis vaccine Marli Rosenberg [facility] 05-01-2008 hepatitis B vaccine, adult dosage Marli Rosenberg [facility] [place] 05-01-2008 measles, mumps and rubella virus vaccine Marli Rosenberg [facility] [place] 05-01-2008 poliovirus vaccine, unspecified formulation Marli Rosenberg [facility] [place] 05-01-2008 varicella virus vaccine Brittney Rosenberg [facility] [place] 03-16-2005 diphtheria, tetanus toxoids and acellular pertussis vaccine Marli Rosenberg [facility] [place] 03-16-2005 haemophilus influenz ae type b vaccine, HbOC conjugate Marli Rosenberg [facility] [place] 03-16-2005 measles, mumps and rubella virus vaccine Marli Rosenberg [facility] [place] 03-16-2005 pneumococcal conjuga te vaccine, 13 valent Marli Rosenberg [facility] [place] 03-16-2005 varicella virus vaccine Brittney Rosenberg [facility] [place] 2004 influenza virus vacc ine, unspecified formulation Marli Rosenberg [facility] [place] 2004 diphtheria, tetanus toxoids and acellular pertussis vaccine Marli Rosenberg [facility] [place] 2004 haemophilus influenz ae type b vaccine, HbOC conjugate Marli Rosenberg [facility] [place] 2004 hepatitis B vaccine, adult dosage Marli Rosenberg [facility] [place] 2004 pneumococcal conjuga te vaccine, 13 valent Marli Rosenberg [facility] [place] 2004 poliovirus vaccine, unspecified formulation Marli Rosenberg [facility] [place] 2004 diphtheria, tetanus toxoids and acellular pertussis vaccine Marli Rosenberg [facility] [place] 2004 haemophilus influenz ae type b vaccine, HbOC conjugate Marli Rosenberg [facility] [place] 2004 hepatitis B vaccine, adult dosage Marli Rosenberg [facility] [place] 2004 pneumococcal conjuga te vaccine, 13 valent Marli Rosenberg [facility] [place] 2004 poliovirus vaccine, unspecified formulation Marli Rosenberg [facility] 2004 diphtheria, tetanus toxoids and acellular pertussis vaccine Marli Rosenberg [facility] [place] 2004 haemophilus influenz ae type b vaccine, HbOC conjugate Marli Rosenberg [facility] [place] 2004 hepatitis B vaccine, adult dosage Marli Rosenberg [facility] [place] 2004 pneumococcal conjuga te vaccine, 13 valent Marli Rosenberg [facility] [place] 2004 poliovirus vaccine, unspecified formulation Marli Rosenberg [facility] [place] Payers Date Payer Category Payer Medicaid HMO [employer] [id number] 2024 Self-pay [id number] 2024 Medicaid [employer] [place] [id number] 2024-Present [address] [place] [address] [id number] 2024 Medicaid [id number] 2013 Managed Care Other (unspecified) [id number] 2013 Private Health Insurance [id number] .[id number]. [id number] 2004 Unknown [id number] 2.16.840.1.229260.3.579.2. 479 2004 Unknown [id number] 2.16.840.1.682058.3.579.2. 593 2004 Unknown [id number] 2.16.840.1.605002.3.579.2. 593 2004 Unknown [id number] 2.16.840.1.318519.3.579.2. 593 2004 Unknown [id number] 2.16.840.1.773707.3.579.2. 1286 2004 Unknown [id number] 2.16.840.1.318876.3.579.2. 1286 2004 Unknown [id number] 2.16.840.1.838966.3.579.2. 1286 2004 Unknown [id number] 2.16.840.1.787845.3.579.2. 1286 2004 Unknown [id number] 2.16.840.1.810422.3.579.2. 1259 2004 Unknown [id number] 2.16.840.1.906548.3.579.2. 1259 2004 Unknown [id number] 2.16.840.1.386021.3.579.2. 1259 2004 Unknown [id number] 2.16.840.1.420754.3.579.2. 1258 2004 Unknown [id number] 2.16.840.1.326852.3.579.2. 1258 2004 Unknown [id number] 2.16.840.1.198243.3.579.2. 1258 2004 Unknown [id number] 2.16.840.1.914507.3.579.2. 1258 2004 Unknown [id number] 2.16.840.1.175547.3.579.2. 1258 2004 Unknown [id number] 2.16840.1.548106.3.579.2. 1258 2004 Unknown [id number] 2.16840.1.312383.3.579.2. 1258 2004 Unknown [id number] 2.840.1.546730.3.579.2. 1258 2004 Unknown [id number] 2.840.1.656654.3.579.2. 1258 2004 Unknown [id number] 2.840.1.229851.3.579.2. 1258 2004 Unknown [id number] 2.16840.1.010153.3.579.2. 1258 1984 Unknown [id number] 2.840.1.618948.3.579.2. 593 1959 Unknown [id number] 2.840.1.134378.19 1959 Unknown [id number] 2.0.1.827099.19 1959 Unknown [id number] 2.840.1.542800.19 Unknown Tom Bean BC/BS [id number] Unknown [id number] 2.840.1.303249.19 Unknown [id number] 2.16.840.1.754978.3.579.2. 531 Social History Date Type Detail Facility Start: 01-07-2022 End: 03-25-2025 Tobacco smoking status Never smoked tobacco (finding) [facility] [employer] Other Tobacco smoking status Never [facility] Start: 07-23-2024 End: 03-27-2025 Sex Assigned At Female [facility] Other Start: 2004 Sex Assigned At Female F [facility] Start: 11-01-2023 End: 03-25-2025 Tobacco use and exposure Smokeless tobacco non-user [facility] Start: 07-23-2024 End: 04-08-2025 Alcoholic beverage intake Lifetime non-drinker (finding) [facility] Start: 07-23-2024 End: 03-27-2025 History of Social function [facility] Start: 11-01-2023 Alcohol Comment caffeine: pop/ tea once or twice a week [facility] Start: 07-23-2024 Gender identity Identifies as female gender (finding) [facility] Start: 08-22-2024 [facility] Tobacco smoking status NHIS Tobacco smoking consumption unknown [facility] Start: 2004 Sex assigned at Not on file [facility] Start: 03-24-2025 Sex Female (finding) [facility] Start: 03-27-2025 Alcoholic beverage intake Ex-drinker (finding) [facility] Clinical Notes 08-21-2013 to 04-15-2025 Mary Cody LPN - 04/15/2025 1:10 PM GEORGI Capps - 04/08/2025 10:50 AM Luis Head RN - 03/27/2025 2:00 PM Cintia Howell MD - 03/27/2025 2:00 PM EDT Note Date & Type Note Facility 04-15-2025 History of Presen t illness Narrative Reason for Appointment: Patient ID: Shilpi M Freeman is a 20 y.o. female who presents [...] nursing note reviewed. Exam conducted with a belt measurer present. Vitals: Estimated body mass index is 26.16 kg/m as calculated from the following: Height as of 1/8/24: 5' 4 . Weight as of this [...] El Espitia DO documented in this encounter [facility] 04-08-2025 History of Presen t illness [...] of: GEORGI Presley documented in this encounter [facility] 03-27-2025 History of Presen t illness [...] testimg Have you been seen here at [facility] in a previous ? no Recent ER visits or hospitalizations? For UTI about 4 weeks ago Bring blood sugar log or meter with you today? (Please bring them with you for every visit at [facility]) Flu vaccine (Sep-January)? Any concerns that you [...] and Rash CURRENT MEDICATIONS: Current Outpatient Medications: [id number] ac-dha (PRENA1 TRUE) 30 mg iron- 1.4 [...] and the other consultants, we search on epic and all the available care everywhere epic I did review all the imaging studies of the patient available on EMR, ordered by the primary care physician and the other business risk consultant HABITS: Patient activity no restrictions, diet [...] pregnancies and is a leading cause of infant morbidity and mortality. In fetuses at all [...] 8th percentile. 2. Serial Doppler studies at [facility] office. 3. 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 Patient does have ultrasound scheduled with us. Thank you for allowing me to participate in Shilpi Millard . If there any questions please do not hesitate to contact us. Sincerely, BAKARI HOWELL MD Video Visit via Real-time Synchronous Audiovisual Provider Location: [facility] AT [address] [id number] Patient Location: Other [facility] office. Patient Location [place]: None Video Visit Consent Statement: I discussed [...] that there are some limitations compared to [id number] evaluations. We elected to proceed. documented in this encounter [facility] 03-26-2025 Miscellaneous Notes Formattin g of this note might be different from the original. Called Dr. Espitia's office regarding any NIPTS/CS testing that was done. Left message on nurse line to fax results or call office. Nurse called back and advises that patient has not had any screenings completed documented in this encounter [facility] 03-26-2025 Telephone encount er Note Called Dr. Espitia's office regarding any NIPTS/CS testing that was done. Left message on nurse line to fax results or call office. Nurse called back and advises that patient has not had any screenings completed [facility] 03-20-2025 History of Presen t illness Narrative [...] nursing note reviewed. Exam conducted with a belt measurer present. Vitals: Estimated body mass index is [...] El Espitia DO documented in this encounter [facility] 03-06-2025 History of Presen t illness [...] nursing note reviewed. Exam conducted with a belt measurer present. Vitals: Estimated body mass index is [...] El Espitia DO documented in this encounter [facility] 02-20-2025 History of Presen t illness [...] nursing note reviewed. Exam conducted with a belt measurer present. Vitals: Estimated body mass index is [...] of: GEORGI Presley documented in this encounter [facility] 01-23-2025 History of Presen t illness [...] El Espitia DO documented in this encounter [facility] 12-30-2024 History of Presen t illness [...] nursing note reviewed. Exam conducted with a belt measurer present. Vitals: Estimated body mass index is [...] ECHO and EKG will be sent to [facility] to be scheduled. Will also send orders for TSH to be drawn every 4 weeks throughout and CBC will also need to be drawn. Patients urine will be sent out for culture today with sample that was provided in office. Documented by Reyna Leal LPN on behalf of: El Espitia DO documented in this encounter [facility] 11-26-2024 History of Presen t illness [...] nursing note reviewed. Exam conducted with a belt measurer present. Vitals: Estimated body mass index is [...] or undercooked meat, and [facility]. Patient has been consulted regarding any [...] El Espitia DO documented in this encounter [facility] 10-25-2024 History of Presen t illness [...] Fidelia Bowling MA documented in this encounter [facility] 07-23-2024 History of Presen t illness [...] nursing note reviewed. Exam conducted with a belt measurer present. Vitals: Estimated body mass index is [...] El Espitia DO documented in this encounter [facility] 01-11-2023 Evaluation note Encounter Date Diagnosis Assessment Notes Dec, Acute effusion of left ear (ICD-10 - H65.192) try this medication and referral sent to ENT since conservative treatment has been used by urgent care and PCP without improvement of symptoms. [facility] Other 01-24-2023 Evaluation note* Encounter Date Diagnosis [...] understanding and is agreeable to treatment plan [facility] Other 08-15-2022 Evaluation note* Encounter Date Diagnosis Assessment Notes Treatment Notes Treatment Clinical Notes Jun, Tooth infection (ICD-10 - K04.7) Take medications as directed.Highly encourage patient to contact dentist CARLY for further treatment of infection. Ok to take OTC medications like ibuprofen with prescriptions [facility] Other 06-16-2022 GeraldShilpi Millard is here for consultation at the request of Iker Olivas MD for: Constipation ---History from parent and patient History of Present Illness My advice was requested by Iker Olivas MD. She is accompanied by her mother and sibling(s). No language translator was used. ABD pain - Patient has [...] 40mg per day Mirala (more content not included)...[facility]04-13-2022 Hospital Discharge instructions Follow Up Care 03/02/2022 15:03:01 With:Iker OLIVAS MD, PED Address: [facility] [place] [address] [place] [address]- When:03/30/2022 Comments:recheck dyspnea/chest pain [facility] [place] 04-13-2022 Hospital Discharge instructions Follow Up Care 03/02/2022 09:25:52 With:Iker OLIVAS MD, PED Address: [facility] [place] [address]- When:03/16/2022 Comments:recheck SOB [facility] [place] 04-08-2022 Evaluation note* Encounter Date Diagnosis Assessment [...] 3 days. Feb, Bronchitis (ICD-10 - J40) [facility] 04-05-2022 Hospital Discharge instructions Follow Up Care 02/22/2022 08:51:47 With:Marli Rosenberg MD Address: When: Unknown Comments:f/up in 2 months for recheck anxiety [facility] 02-21-2022 Evaluation note* Encounter Date Diagnosis Assessment [...] we will help you get into specialist. [facility] Other 12-15-2021 Evaluation note* Encounter Date Diagnosis Assessment Notes Treatment Notes Treatment Clinical Notes Oct, Sore throat (ICD-10 - J02.9) Oct, Viral pharyngitis (ICD-10 - J02.9) Drink plenty of fluids, get plenty of rest. Tylenol or Motrin for aches pains or fevers. Follow-up with family physician if no improvement in 2 to 3 days for [facility] Other 10-02-2013 History general Narrative - Reported* Type Description Date Medical History eczema Medical History reactive airway Medical History Radial fracture (resolved 2012) Medical History Strep throat (resolved 1) Surgical History dental reconstruction age 1 [facility] Other 10-02-2013 History general Narrative - Reported* Type Description Date Medical History eczema Medical History reactive airway Medical History Radial fracture (resolved 2012) Medical History Strep throat (resolved 1) Surgical History dental reconstruction age 1 Surgical History Cyst Removal Left eye 08/2022 [facility] Other Evaluation + Plan note Referrals to Other Providers Referred by: Chet DENTON, Marli ENRIQUE [facility] [place] Evaluation + Plan note Future Appointments Appointment Date:03/16/2022 02:00:00 PM Scheduled Provider:Iker OLIVAS MD Location:[facility] [place] Appointment Type:Peds OV 10 Referrals to Other Providers Referred by: Iker OLIVAS MD [facility] [place] Evaluation + Plan note Future Appointments Appointment Date:03/30/2022 08:40:00 AM Scheduled Provider:Iker OLIVAS MD Location:[facility] Appointment Type:Peds OV 10 [facility] evaluation noteNo assessment information available [facility] Work Phone: evaluation note* Diagnosis Onset Date Resolution Status Acute UTI (urinary tract infection) acute [facility] Work Phone: evaluation note* Diagnosis Encounter [...] weeks gestation of documented in this encounter [facility] Healthcare[facility] note* Diagnosis SGA (small for gestational age)- Primary Akuyn-qxv-wwqvt without mention of malnutrition, unspecified (weight) [facility] Diagnosis Third trimester state, incidental 34 weeks gestation of documented in [facility] encounter [facility]* Diagnosis Third trimester state, incidental Poor growth affecting management of mother in first trimester, single or unspecified fetus documented in this encounter [facility] Healthcare[facility] note* Diagnosis SGA (small for gestational age), 1,000-1,249 grams- Primary Xqiro-hhs-hhmwm without mention of malnutrition, 1,000-1,249 grams Poor growth affecting management of mother in third trimester, single or unspecified fetus [facility] Narrative No data available for this section [facility] [place] InstructionsNot on filedocumented in this encounter [facility]ructions[facility] on filedocumented in this encounter [facility] SystemInstructionsNot on filedocumented in this encounter [facility] Reason for Referral Reason *FU 02/02 Middle e ar effusion that is persisting Diagnosis 1 Acute effusion of le ft ear (H65.192) Referral Organization [facility] Family Medicin e Michael Referring Provider First Name Lynette Referring Provider Last Name Conrado Referring Provider Specialty Nurse Pract itioner Referred Organization [facility] Referred Provider Fiordaliza Akers Referred Address ,[place], [place],[address] Referred Provider Specialty Ear, Nose an d Throat Referral Priority Routine General Notes Betzy Lagunan 023 07:30:08 AM >Received today and waiting for office notes to be locked before sending referral. Will not be sending insurance card with referral since there was no updated card in chart Luz Elena Sailaja 01/12/2023 01:30:59 PM >Dr. Akers request us [...] section and content) DATE CREATED AUTHOR 03/02/2023 [facility] DATE CREATED AUTHOR AUTHOR'S ORGANIZ ATION 03/25/2023 [facility] DATE CREATED AUTHOR AUTHOR'S ORGANIZ ATION 12/30/2023 [facility] DATE CREATED AUTHOR AUTHOR'S ORGANIZ ATION 01/10/2025 [facility] DATE CREATED AUTHOR AUTHOR'S ORGANIZ ATION 03/29/2025 [facility] DATE CREATED AUTHOR AUTHOR'S ORGANIZ ATION 04/20/2025 [facility] DATE CREATED AUTHOR AUTHOR'S ORGANIZ ATION 04/23/2025 [facility] d[facility] Specialists EPIC FOR RECORDS PERTAINING TO [...] BE BASED ON THE PRIMARY CLINICAL RECORDS. [facility] provides no warranty or guarantee of the accuracy or completeness of information in this document.
== END 2025-04-25 09:55 | disposition home or self-care (01) ==
LOC: FBCO 09:07 → FBC 09:08
PROVIDERS: PCP Nurse Practitioner Family; Visit Provider Obstetrics & Gynecology
DX: O36.5930 Maternal care for other known or suspected poor fetal growth, third trimester, not applicable or unspecified (principal)
CPT/HCPCS: 59025

== ENCOUNTER 2025-04-29 10:03 | Outpatient (OUT) | payer OTHER, SELFPAY ==
--- OUTSIDE RECORDS SUMMARY | 2008-12-11 06:30 | XMS_ITS | Continuity of Care Document ---
Author Organization [facility] Address [address] [place] [address] Phone Care Team Providers Care Blood Tester Fowl Name Role Phone Shante DANIEL Danielito Unavailable Unavailable Procedures Procedure Date FLU VACCINE, 3 YRS, IM Advance Directives Directive Yes / No Effective Date File Name No Information Encounters Encounter Description Practice Location Reason(s) For Visit Diagnoses Date Provider Providers Copied on Encounter [facility], [address] [place], [place], [id number], tel:[phone] [facility] No Information Shante Christensen. [address] [place], [place], [id number], [place]. tel:[phone] Family History Family Member Type Diagnosis Age At Onset No Information Payers Payer name Insurance type Covered libertarian ID Authoriza tion(s) No Information Social History [...]
--- OUTSIDE RECORDS SUMMARY | 2025-04-15 13:10 | XMS_ITS | Encounter Summary ---
Author Organization [facility] Address [address] [place] [address] Care Team Providers Care Silver Buffer Name Role Phone Unavailable Primary Care Provider Unavailabl e Encounter Details Date Type Department Care Team (Late st Contact Info) Description 04/15/2025 1:10 PM EDT Routine [facility] [address] [place] [address] El Espitia, DO [address] [place]air[place], [id number] Third trimester ; Poor growth affecting management [...] documented in this encounter Progress Notes * Mary Cody, COORDINATE MEASURING MACHINE OPERATOR - 04/15/2025 1:10 PM EDT Reason for Appointment: Patient ID: Shilpi Ware is a 20 y.o. female who presents for No chief [...] Constitutional: Appearance: Normal appearance. She is well-developed. Genitourinary: Vulva normal. Cardiovascular: Rate and Rhythm: Normal rate and [...] nursing note reviewed. Exam conducted with a director of child welfare services present. Vitals: Estimated body mass index is 26.16 kg/m?? as calculated from the following: Height as of 11/27/23: 5' 4 . Weight as of this encounter: 152 lb 6.4 oz. BP: 100/68 Patient's last menstrual period was 07/15/2024 (approximate). ASSESSMENT & PLAN ICD-10-CM 1. Third trimester Z34.93 CULTURE, GROUP B STREP WITH SUSCEPTIBLITY CULTURE, GROUP B STREP WITH SUSCEPTIBLITY 2. Poor growth affecting management of mother in first trimester, single or unspecified [id number] Patient is doing well but has complaints of being tired and having maternal discomfort due to . Patient verbalized frequent movement and was instructed to perform kick counts three times per day. labor precautions were given, LARC consent was signed/declined, and GBS was obtained. Cervical check was performed and patient is 2cm dilated. Will be induced 2 weeks early d/t IUGR Orders Placed This Encounter Procedures CULTURE, GROUP B STREP WITH SUSCEPTIBLITY Follow Up: Patient is to return to office in 1 week for routine OB appointment Documented by Mary Cody LPN on behalf of: El Espitia DO documented in this encounter Plan of Treatment Upcoming Encounters Date Type Department Care Team (Late st Contact Info) Description 04/30/2025 1:40 PM EDT Routine [facility] [address] [place] [address] El Espitia DO [address] [place], [place] [id number] Scheduled Orders Name Type Priority Associated Diagnoses Orde r Schedule CULTURE, GROUP B STREP WITH SUSCEPTIBLITY Lab Routine Third trimester Expected: 04/15/2025, Expires: 04/15/2026 documented as of this encounter Visit Diagnoses Diagnosis Third trimester state, incidental Poor growth affecting management of mother in first trimester, single or unspecified fetus documented in this encounter
--- OUTSIDE RECORDS SUMMARY | 2025-04-29 10:06 | XMS_ITS | Encounter Summary ---
Author Organization [facility] Address [address] [place] [address] Care Team Providers Care Pool Table Operator Name Role Phone Unavailable Primary Care Provider Unavailabl e Encounter Details Date Type Department Care Team (Late st Contact Info) Description 04/09/2025 Abstract [facility] OB [address] [facility] [place] [address] El Espitia, [address] [place]aira [place], [place] [id number] Social History Tobacco Use Types Packs/Day Years [...] Description 04/30/2025 1:40 PM EDT Routine [facility] OB [address] [place] [address] El Espitia, [address] [place] [address] documented as of this encounter Visit Diagnoses Not on filedocumented in this encounter
--- OUTSIDE RECORDS SUMMARY | 2025-04-29 10:06 | XMS_ITS | Clinical Summary ---
Author Organization [facility] tem Address [id number] [address] [place] [address] Care Team Providers Care Splicing Machine Operator Automatic Name Role Phone Unavailable Primary Care Provider Unavailabl e Allergies Active Allergy Reactions Criticality Noted Date Comments Coconut GI Disturbance Medium 04/18/2024 Iron Hives Medium 05/05/2022 Latex Hives,Rash Low 09/24/2019 Medications 111-txqz-egiqo ac-dha (PRENA1 TRUE) 30 mg iron- 1.4 [...] 2:00 PM EDT Telemedicine Maternal- Medicine at [facility] [address] [place] [address] Dwayne Hernandez MD SGA (small for gestational age), 1,000-1,249 grams (Primary Dx); Poor growth affecting management of mother in third trimester, single or unspecified fetus 03/27/2025 Travel 03/26/2025 Telephone [facility] [address] [place] [phone] Melina Head RN 03/25/2025 Abstract Maternal- Medicine at [facility] [address] [place] [phone] Dwayne Hernandez MD 03/24/2025 Orders Only Maternal- Medicine at [facility] [address] [place] [address] Estrellita Weinberg RN SGA (small for gestational [...] period is included. Anatomical Region Laterality Modality OB-MANAGER MBA Ultrasound 04/17/2025 2:58 PM EDT Narrative 04/18/2025 9:02 AM EDT NAME: FREEMAN ESQUEDA : 2005 SEX: F Accession Number: [id number] ORDERING PHYSICIAN: CHARITY LEONARD REFERRING PHYSICIAN: HO YORK Coding ----- --------- Procedures 48340: Follow-up Ultrasound, per fetus 26533: Doppler velocimetry, ; umbilical artery Indication ----- --------- IUGR-Poor growth History ----- --------- OB History 2. Para 0 [id number] Maternal Assessment ----- --------- Physical Exam Height [...] EFW (oz) 1 oz EFW by: Hadlock ([id number]) Extended Tibia 56.0 mm 32w 6d 5% Arturo Foot 72.7 mm 44% Chitty Schedule Planning Manager 2.9 mm Head / Face / Neck [...] 3.7 cm. Recommendations ----- --------- Please see [facility] recommendations from prior clinical and/or ultrasound report documentation. Subsequent follow up or other follow up as clinically determined by primary OB provider unless otherwise specified by M. Results forwarded to ordering provider so they can follow up with the patient as necessary. Procedure Note Charity Leonard MD - 04/18/2025 NAME: FREEMAN ESQUEDA : 2005 SEX: F Accession Number: [id number] ORDERING PHYSICIAN: CHARITY LEONARD REFERRING PHYSICIAN: HO YORK Coding ----- --------- Procedures 07306: Follow-up Ultrasound, per fetus 50691: Doppler velocimetry, ; umbilical artery Indication ----- --------- IUGR-Poor growth History ----- --------- OB History 2. Para 0 [id number] Maternal Assessment ----- --------- Physical Exam Height [...] EFW (oz) 1 oz EFW by: Jadiel ([id number]) Extended Tibia 56.0 mm 32w 6d 5% Arturo Foot 72.7 mm 44% Chitty Schedule Planning Manager 2.9 mm Head / Face / Neck [...] 3.7 cm. Recommendations ----- --------- Please see [facility] recommendations from prior clinical and/or ultrasoundreport documentation. Subsequent follow up or other follow up as clinically determined byprimary OB provider unless otherwise specified by [facility]. Results forwarded to ordering provider so they can follow up with thepatient as necessary. us Charity Leonard MD G ORDERABLES Final Re sult from Last [address] [place] [address] [employer]
--- OUTSIDE RECORDS SUMMARY | 2025-04-29 10:06 | XMS_ITS | Encounter Summary ---
Author Organization [facility] Address [address] [place] [address] Care Team Providers Care Supervisor Calibration Name Role Phone Unavailable Primary Care Provider Unavailabl e Encounter Details Date Type Department Care Team (Late st Contact Info) Description 04/15/2025 Bamboo flowsheet [facility] OB [address] [place] [address] El Espitia, [address] Zaira [place], [place] [address] Social History Tobacco Use Types Packs/Day Years [...] Routine [facility] OB [address] [place] [address] El Espitia, [address] [place] [address] documented as of this encounter Visit Diagnoses Not on filedocumented in this encounter
--- OUTSIDE RECORDS SUMMARY | 2025-04-29 10:06 | XMS_ITS | Encounter Summary ---
Author Organization [facility] Address [address] [place] [address] Care Team Providers Care Sales Special Agent Name Role Phone Unavailable Primary Care Provider Unavailabl e Encounter Details Date Type Department Care Team (Late st Contact Info) Description 04/22/2025 Bamboo flowsheet [facility] OB [address] [place] [address] Nhung Adamson PA [address] [place], [place] [address] Social History Tobacco Use Types Packs/Day Years [...] [facility] OB [address] [place] [address] El Espitia, [address] Zaira [place], [place] [id number] documented as of this encounter Visit Diagnoses Not on filedocumented in this encounter
--- OUTSIDE RECORDS SUMMARY | 2025-04-29 10:06 | XMS_ITS | Encounter Summary ---
Author Organization [facility] Address [address] [place] [address] Care Team Providers Care Vehicle Service Attendant Name Role Phone Unavailable Primary Care Provider Unavailabl e Encounter Details Date Type Department Care Team (Late st Contact Info) Description 04/03/2025 Abstract [facility] OB [address] [facility] [address] El Espitia, [address] [place], [place] [id number] Social History Tobacco Use Types Packs/Day Years [...] Description 04/30/2025 1:40 PM EDT Routine [facility] OB [address] [place] [address] El Espitia, [address] [place] [address] documented as of this encounter Visit Diagnoses Not on filedocumented in this encounter
--- OUTSIDE RECORDS SUMMARY | 2025-04-29 10:06 | XMS_ITS | Clinical Summary ---
Author Organization [facility] Address [address] [place] [address] Care Team Providers Care Marine Water Tender Name Role Phone Unavailable Primary Care Provider Unavailabl e Allergies Active Allergy Reactions Criticality Noted Date Comments Coconut (Cocos Nucifera) GI intolerance Medium 04/18/2024 Other Reaction(s): GI Disturbance Iron Hives Medium 05/05/2022 Latex Rash,Unknown,Hives Low 09/24/2019 Other Unknown 09/24/2019 METAL Medications Glasys-UcJwwq-RE -DHA w/o Vit A (Prena 1 True) 30-1.4 & 300 MG misc Take 1 tablet by mouth in the morning. Active Active Problems Problem Noted Date Diagnosed Date Near syncope 12/30/2024 20 weeks gestation of 12/30/2024 15 weeks gestation of 11/26/2024 Estimated Date of Delivery Comme nts Yes 05/15/2025 Based on Ultraso und Encounters Date Type Department Care Team Description 04/23/2025 Abstract [facility] OB [address] [place] [address] Reyna Leal LPN 04/22/2025 1:50 PM EDT Routine [facility] OB [address] [place] [address] Nhung Adamson PA Third trimester ; 36 weeks gestation of 04/22/2025 Bamboo flowsheet [facility] OB [address] [place] [address] Nhung Adamson PA 04/15/2025 1:10 PM EDT Routine [facility] OB [address] [place] [address] Ho Espitia, Third trimester ; Poor growth affecting management of mother in first trimester, single or unspecified fetus 04/15/2025 Bamboo flowsheet [facility] OB [address] [place] [address] Ho Espitia, 04/09/2025 Abstract [facility] OB [address] [place] [address] Ho Espitia, DO 04/08/2025 10:50 AM EDT Routine [facility] OB [address] [place] [address] Nhung Adamson PA Third trimester ; 34 weeks gestation of 04/08/2025 Clinisync Result Encounter NOMS External Department Unsolicited Ho Espitia, DO 04/08/2025 Bamboo flowsheet [facility] OB [address] [place] [address] Nhung Adamson PA 04/04/2025 Abstract [facility] OB [address] [place] [address] Sofy Huntley MA 04/03/2025 Abstract [facility] OB [address] [place] [address] Ho Espitia, 03/27/2025 Abstract [facility] OB [address] [place] [address] Ho Espitia, DO 03/27/2025 Abstract [facility] OB [address] [place] [address] Ho Espitia, DO 03/25/2025 Clinisync Result Encounter NOMS External Department Unsolicited Ho Espitia, DO 03/25/2025 Telephone [facility] OB [address] [place] [address] [place] [address] Ho Espitia, DO 03/20/2025 11:30 AM EDT Ancillary Procedure [facility] OB [address] [place] [address] [place] [address] size inconsistent with dates 03/20/2025 10:30 AM EDT Routine [facility] OB [address] [place] [address] Ho Espitia, Third trimester ; 32 weeks gestation of ; Small for gestational age 0503/20/2025 Bamboo flowsheet [facility] OB [address] [place] [address] Ho Espitia, 03/19/2025 Telephone [facility] OB [address] [place] [address] [place] [address] Fidelia Bowling, DANA 03/18/2025 Telephone [facility] OB [address] [place] [address] [place] [address] Fidelia Bowling, DANA 03/10/2025 Results Follow-Up [facility] OB [address] [place] [address] Mary Wiggins LPN 03/06/2025 10:50 AM EDT Routine [facility] OB [address] [place] [address] Ho Espitia, Third trimester ; 30 weeks gestation of ; Vaginal discharge; size inconsistent with dates 03/06/2025 10:00 AM EDT Ancillary Procedure [facility] OB [address] [place] [address] [place] [address] Encounter for follow-up ultrasound of anatomy 02/20/2025 10:20 AM EDT Routine [facility] OB [address] [place] [address] [place] [address] Nhung Adamson PA Third trimester ; 28 weeks gestation of ; Screen for STD (sexually transmitted disease); Encounter for follow-up ultrasound of anatomy 02/20/2025 Bamboo flowsheet NOM[facility] [address] [place] [address] Nhung Adamson PA 02/13/2025 Clinisync Result Encounter NOMS External Department Unsolicited Ho Espitia, DO 02/13/2025 Telephone [facility] [address] [place] [address] Ho Espitia, DO 01/30/2025 Clinisync Result Encounter NOMS External Department Unsolicited Ho Espitia, DO 01/30/2025 Clinisync Result Encounter NOMS External Department Unsolicited Ho Espitia, DO from Last 3 Months Family History [...] PM EDT Routine [facility] OB [address] [place] [address] NupurHo, DO [address] [facility] [place] [address] Health Maintenance Due Date Last Done Comments [...] 02/13/2025 3:30 PM EDT [facility] UA (CLEAN/CATCH) MANAGER SHIFT/MICRO IF IND. Routine 02/13/2025 3:30 PM EDT CA ECHO DOPPLER COMPLETE 01/30/2025 8:11 PM EDT GLUCOSE 1 HOUR Routine 01/30/2025 11:49 AM EDT ALL CBC WITH AUTO DIFF Routine 11:49 AM EDT from Last 3 Months Results * (ABNORMAL) POCT urinalysis dipstick manually resulted (04/22/2025 2:10 PM EDT) Only the most recent of4 resultswithin [...] PM EDT Narrative 04/08/2025 4:43 [place] [address] Ultrasound Report Signed Patient: YIN MILLARD MR#: [id number] : 2005 Acct:[id number] Age/Sex: 20 / F ADM Date: 04/08/25 Loc: US Attending Dr: Ho Espitia D.O. Ordering Physician: Ho Espitia D.O. Date of Service: 04/08/25 Procedure(s): US OB BPP w non-stress Accession Number(s): [id number] cc: BUCKY COREA ; Ho Espitia D.O. The [place] [address] Patient Name: YIN MILLARD MRN: [id number] date: 2005 Sex: F Assigned Patient Location: [facility] Current Patient Location: Accession/Order Number: [id number] Exam Date: 04/08/2025 16:39 Report Date: 04/08/2025 [...] Soto M.D. 04/08/2025 4:40 PM Dictation Location: [place] [address] Electronically authenticated by: [id number] Y Date: 04/08/2025 16:40 Dictated By: Franck Soto D.O. Signed By: 04/08/25 1643 DD/ 1640 TD/TT: Fish Housekeeper: Procedure Note Radiology, Radiologist, - 04/08/[address] [address] Ultrasound Report Signed Patient: YIN MILLARD MMR#: [id number] : 2005Acct:[id number] Age/Sex: 20 / FADM Date: 04/08/25 Loc: US Attending Dr: Ho Espitia D.O. Ordering Physician: Ho Espitia D.O. Date of Service: 04/08/25 Procedure(s): US OB BPP w non-stress Accession Number(s): [id number] cc: BUCKY COREA ; Ho Espitia D.O. The [place] [address] Patient Name: YIN MILLARD MRN: [id number] date: 2005 Sex: F Assigned Patient Location: [facility] Current Patient Location: Accession/Order Number: [id number] Exam Date: 04/08/2025 16:39 Report Date: 04/08/2025 [...] Soto M.D. 04/08/2025 4:40 PM Dictation Location: [place] [address] Electronically authenticated by: [id number] Y Date: 6:40 Dictated By: Franck Soto D.O. Signed By:04/08/25 1643 DD/ 1640 TD/TT: Fish Housekeeper: us Ho Espitia DO CLIN[facility] IMAGING Final Result * US [...] II, MD, PHD at 23-Mar-2025 08:55:00 PM [facility] Procedure Note Arturo Puente MD - [...] signed by ARTURO PUENTE II, MD, PHD [id number] 08:55:00 PM [facility] us Ho Nupur DO IMG OB US PROCEDURES Final Resul t * (ABNORMAL) RECURRENT VAGINITIS (HTRX) (03/06/2025 11:23 AM EDT) Only the most recent of2 resultswithin the time period is included. ATOPOBIUM VAGINAE 28.768(A) 19.961 - 24.689 ppm 03/07/2025 7:45 AM EDT [facility] ATOPOBIUM VAGINAE Detected(A) 19.961 - 24.689 ppm 03/07/2025 7:45 AM EDT [facility] BVAB 2,3 (BACTERIAL VAGINOSIS ASSOCIATED BACTERIA 2, 3); MOBILUNCUS SPP 0.000 19.961 - 24.689 ppm 03/07/2025 7:45 AM EDT [facility] BVAB 2,3 (BACTERIAL VAGINOSIS ASSOCIATED BACTERIA 2, 3); MOBILUNCUS SPP Not Detected 19.961 - 24.689 ppm 03/07/2025 7:45 AM EDT [facility] TYLER ALBICANS, PARAPSILOSIS, TROPICALIS 0.000 19.961 - 30.770 ppm 03/07/2025 7:45 AM EDT [facility] [place] TYLER ALBICANS, PARAPSILOSIS, TROPICALIS Not Detected 19.961 - 30.770 ppm 03/07/2025 7:45 AM EDT [facility] [place] TYLER GLABRATA 0.000 23.000 - 32.138 ppm 03/07/2025 7:45 AM EDT [facility] [place] TYLER GLABRATA Not Detected 23.000 - 32.138 ppm 03/07/2025 7:45 AM EDT [facility] [place] TYLER KRUSEI 0.000 23.000 - 32.271 ppm 03/07/2025 7:45 AM EDT [facility] [place] TYLER KRUSEI Not Detected 23.000 - 32.271 ppm 03/07/2025 7:45 AM EDT [facility] [place] CHLAMYDIA TRACHOMATIS 0.000 23.000 - 31.467 ppm 03/07/2025 7:45 AM EDT [facility] [place] CHLAMYDIA TRACHOMATIS Not Detected 23.000 - 31.467 ppm 03/07/2025 7:45 AM EDT [facility] [place] GARDNERELLA VAGINALIS 0.000 19.961 - 24.689 ppm 03/07/2025 7:45 AM EDT [facility] [place] GARDNERELLA VAGINALIS Not Detected 19.961 - 24.689 ppm 03/07/2025 7:45 AM EDT [facility] [place] MEGASPHAERA (TYPES 1, 2) 0.000 19.961 - 24.689 ppm 03/07/2025 7:45 AM EDT [facility] [place] MEGASPHAERA (TYPES 1, 2) Not Detected 19.961 - 24.689 ppm 03/07/2025 7:45 AM EDT [facility] [place] NEISSERIA GONORRHOEAE 0.000 23.000 - 32.117 ppm 03/07/2025 7:45 AM EDT [facility] [place] NEISSERIA GONORRHOEAE Not Detected 23.000 - 32.117 ppm 03/07/2025 7:45 AM EDT [facility] [place] TRICHOMONAS VAGINALIS 0.000 23.000 - 32.119 ppm 03/07/2025 7:45 AM EDT [facility] [place] TRICHOMONAS VAGINALIS Not Detected 23.000 - 32.119 ppm 03/07/2025 7:45 AM EDT [facility] [place] MYCOPLASMA GENITALIUM 0.000 19.961 - 24.689 ppm 03/07/2025 7:45 AM EDT [facility] [place] MYCOPLASMA GENITALIUM Not Detected 19.961 - 24.689 ppm 03/07/2025 7:45 AM EDT [facility] Tissue 03/06/2025 11:2 3 AM EDT 03/07/2025 2:11 AM EDT us Ho Espitia DO LAB BLOOD ORDERABLES Final Resul t [facility] [address] [facility] [place] [address] * US OB limited 1+ fetuses (03/06/2025 [...] II, MD, PHD at 08-Mar-2025 06:48:44 PM [facility] Procedure Note Arturo Puente MD - [...] signed by ARTURO PUENTE II, MD, PHD 06:48:44 PM [facility] us Nhung LAUREANO IMG OB US [...] [facility] * (ABNORMAL) [facility] UA (CLEAN/CATCH) MANAGER SHIFT/MICRO IF IND. (02/13/2025 3:30 PM EDT) COLOR [...] us Ho Espitia DO [facility] Final Result [facility] * CA ECHO DOPPLER COMPLETE (01/30/2025 8:11 PM EDT) Anatomical Region Laterality Modality Other 01/30/2025 8:11 PM EDT Narrative 01/30/2025 8:12 [place] [address] Cardiology Report Signed Patient: YIN MILLARD MR#: [id number] : 2005 Acct:[id number] Age/Sex: 19 / F ADM Date: 01/30/25 Loc: CARD Attending Dr: Ho Espitia D.O. Ordering Physician: Ho Espitia D.O. Date of Service: 01/30/25 Procedure(s): CA echo doppler complete Accession Number(s): [id number] cc: BUCKY COREA ; Ho Espitia D.O. Patient Name: YIN MILLARD MR#: [id number] : 2005 Exam Date: 01/30/2025 Ordering Doctor: [...] AMBROSIO Signed By: 01/30/252011 DD/ 10 TD/TT: Fish Housekeeper: Procedure Note Radiology, Radiologist, MD - 01/30/2025 [place] [address] Cardiology Report Signed Patient: YIN MILLARD MMR#: [id number] : 2005Acct:[id number] Age/Sex: Date: 01/30/25 Loc: CARD Attending Dr: Ho Espitia D.O. Ordering Physician: Ho Espitia D.O. Date of Service: 01/30/25 Procedure(s): CA echo doppler complete Accession Number(s): [id number] cc: BUCKY COREA ; Ho Espitia D.O. Patient Name: YIN MILLARD MR#: [id number] : 2005 Exam Date: 01/30/2025 Ordering Doctor: [...] HERNANDO AMBROSIO Signed By:01/30/252011 DD/ 10 TD/TT: Fish Housekeeper: us Ho Nupur DO [facility] IMAGING Final Result * GLUCOSE 1 HOUR (01/30/2025 11:49 AM EDT) GLUCOSE 1 HOUR 91 <130 mg/dL [facility] 01/30/2025 11:4 9 AM EDT 01/30/2025 11:50 AM EDT Narrative CLINIS[facility] - 01/30/2025 12:24 PM EDT us Ho Nupur DO LAB BLOOD ORDERABLES Final Resul t [facility] * (ABNORMAL) ALL CBC WITH AUTO DIFF [...] Narrative [facility] - 01/30/2025 12:14 PM EDT us Ho Nupur DO [facility] Final Result [facility] from Last 3 Months Insurance [employer]
--- OUTSIDE RECORDS SUMMARY | 2025-04-29 10:06 | XMS_ITS | Encounter Summary ---
Author Organization [facility] Address [address] [place] [address] Care Team Providers Care Assistant Professor Of Archaeology Name Role Phone Unavailable Primary Care Provider Unavailabl e Encounter Details Date Type Department Care Team (Late st Contact Info) Description 04/23/2025 Abstract [facility] [address] [facility] [place] [address] Reyna Leal LPN Social History Tobacco [...] Routine [facility] OB [address] [place] [address] El Espitia, DO [address] [place] [address] documented as of this encounter Visit Diagnoses Not on filedocumented in this encounter
--- OUTSIDE RECORDS SUMMARY | 2025-04-29 10:07 | XMS_ITS | Encounter Summary ---
Author Organization [facility] Address [address] [place] [address] Care Team Providers Care Kitchen Cleaner Name Role Phone Unavailable Primary Care Provider Unavailabl e Encounter Details Date Type Department Care Team (Late st Contact Info) Description 10/26/2024 Clinisync Result Encounter NOMS External Department Unsolicited Ho Espitia DO [address] [place] [address] Social History Tobacco Use Types Packs/Day Years [...] Routine [facility] BCP OB [address] [place] [address] Ho Espitia DO [address] [place] [address] documented as of this encounter Procedures Procedure Name Priority Date/Time Associated Diagnosis Comments US OB TRANSVAGINAL 10/26/2024 4: 54 AM EST documented in this encounter Results * US OB TRANSVAGINAL (10/26/2024 4:54 AM EST) Anatomical Region Laterality Modality Other 10/26/2024 4:54 AM EST Narrative 10/26/2024 4:56 AM EST [address] [address] Ultrasound Report Signed Patient: SHILPI MILLARD MR#: [id number] : 2005 Acct:[id number] Age/Sex: 19 / F ADM Date: 10/25/24 Loc: NOMS Attending Dr: Ho Espitia D.O. Ordering Physician: Ho Espitia D.O. Date of Service: 10/25/24 Procedure(s): US OB transvaginal Accession Number(s): [id number] cc: BUCKY COREA ; Ho Espitia D.O. [address] [address] Patient Name: SHILPI MILLARD MRN: [id number] date: 2005 Sex: F Assigned Patient Location: [facility] Current Patient Location: Accession/Order Number: [id number] Exam Date: 10/25/2024 10:10 Report Date: 10/26/2024 [...] Single live intrauterine . Electronically authenticated by: ARUTRO EDUARDO Date: 10/26/2024 04:54 Dictated By: Arturo Eduardo M.D. Signed By: 10/26/24455 DD/ 3 TD/TT: Silver Cleaner: Procedure Note Radiology, Radiologist, MD - 10/26/2024 [place] [address] Ultrasound Report Signed Patient: SHILPI MILLARD MMR#: [id number] : 2005Acct:[id number] Age/Sex: 19 / FADM Date: 10/25/24 Loc: NOMS Attending Dr: Ho Espitia D.O. Ordering Physician: Ho Espitia D.O. Date of Service: 10/25/24 Procedure(s): US OB transvaginal Accession Number(s): [id number] cc: BUCKY COREA ; Ho Espitia D.O. The [place] [id number] Patient Name: SHILPI MILLARD MRN: [id number] date: 2005 Sex: F Assigned Patient Location: [facility] Current Patient Location: Accession/Order Number: [id number] Exam Date: 10/25/2024 10:10 Report Date: 10/26/2024 [...] Eduardo M.D. Signed By:10/26/246 DD/ 3 TD/TT: Silver Cleaner: us Ho Nupur DO [facility] IMAGING Final Result documented in this encounter Visit Diagnoses Not on filedocumented in this encounter
--- OUTSIDE RECORDS SUMMARY | 2025-04-29 10:07 | XMS_ITS | Encounter Summary ---
Author Organization [facility] Address [address] [place] [address] Care Team Providers Care Pin Sticker Name Role Phone Unavailable Primary Care Provider Unavailabl e Encounter Details Date Type Department Care Team (Late st Contact Info) Description 04/04/2025 Abstract [facility] OB [address] [facility] [place] [address] Sofy Huntley MA Social History Tobacco [...] Description 04/30/2025 1:40 PM EDT Routine [facility] OB [address] [place] [address] El Espitia, DO [address] [place], [place] [address] documented as of this encounter Visit Diagnoses Not on filedocumented in this encounter
--- OUTSIDE RECORDS SUMMARY | 2025-04-29 10:07 | XMS_ITS | Encounter Summary ---
Author Organization [facility] Address [address] [place] [address] Care Team Providers Care Asbestos Cement Sheet Supervisor Name Role Phone Unavailable Primary Care Provider Unavailabl e Encounter Details Date Type Department Care Team (Late st Contact Info) Description 03/27/2025 Abstract [facility] [address] [place] [address] [place], [address] [place] [place], [place] [id number] Social History Tobacco Use Types Packs/Day Years [...] Description 04/30/2025 1:40 PM EDT Routine [facility] OB [address] [place] [address] [place], [address] [place] [address] documented as of this encounter Visit Diagnoses Not on filedocumented in this encounter
--- OUTSIDE RECORDS SUMMARY | 2025-04-29 10:07 | XMS_ITS | Encounter Summary ---
Author Organization [facility] Address [address] [place] [address] Care Team Providers Care Horn Player Name Role Phone Unavailable Primary Care Provider Unavailabl e Encounter Details Date Type Department Care Team (Late st Contact Info) Description 01/13/2025 Abstract [facility] [address] [facility] [address] [address] [place], [address] [place], [place] [id number] Social History Tobacco Use Types Packs/Day Years [...] Description 04/30/2025 1:40 PM EDT Routine [facility] OB [address] [place] [address] [place], [address] [place] [address] documented as of this encounter Visit Diagnoses Not on filedocumented in this encounter
--- OUTSIDE RECORDS SUMMARY | 2025-04-29 10:07 | XMS_ITS | Encounter Summary ---
Author Organization [facility] Address [address] [place] [address] Care Team Providers Care Carbonation Tester Name Role Phone Unavailable Primary Care Provider Unavailabl e Encounter Details Date Type Department Care Team (Late st Contact Info) Description 03/27/2025 Abstract [facility] [address] [place] [address] [place], [address] [place], [place] [id number] Social History Tobacco Use Types Packs/Day Years [...] Description 04/30/2025 1:40 PM EDT Routine [facility] OB [address] [place] [address] [place], [address] [place] [address] documented as of this encounter Visit Diagnoses Not on filedocumented in this encounter
--- OUTSIDE RECORDS SUMMARY | 2025-04-29 10:07 | XMS_ITS | Encounter Summary ---
Author Organization [facility] Address [address] [place] [address] Care Team Providers Care Geography Instructor Name Role Phone Unavailable Primary Care Provider Unavailabl e Encounter Details Date Type Department Care Team (Late st Contact Info) Description 03/10/2025 Results Follow-Up [facility] [address] [place] [address] Mary Wiggins LPN [address] [place], [place] [id number] Social History Tobacco Use Types Packs/Day Years [...] Routine [facility] [address] [place] [address] [place], [address] [place] [address] documented as of this encounter Visit Diagnoses Not on filedocumented in this encounter
[2025-04-29 10:38] VITALS: BP 122/65; PULSE 87
== END 2025-04-29 11:09 | disposition home or self-care (01) ==
LOC: US 10:03 → FBC 10:06
PROVIDERS: PCP Nurse Practitioner Family; Visit Provider Obstetrics & Gynecology
DX: O36.5990 Maternal care for other known or suspected poor fetal growth, unspecified trimester, not applicable or unspecified (principal)
CPT/HCPCS: 76818; 76820

== ENCOUNTER 2025-04-30 21:08 | Inpatient (IN) | payer OTHER, SELFPAY ==
--- OUTSIDE RECORDS SUMMARY | 2008-12-11 06:30 | XMS_ITS | Continuity of Care Document ---
Author Organization [facility] Address [address] [place] [address] Phone Care Team Providers Care Scientific Associate Name Role Phone Shante DANIEL Danielito Unavailable Unavailable Procedures Procedure Date FLU VACCINE, 3 YRS, IM Advance Directives Directive Yes / No Effective Date File Name No Information Encounters Encounter Description Practice Location Reason(s) For Visit Diagnoses Date Provider Providers Copied on Encounter [facility], [address] [place], [place], [id number], tel:[phone] [facility] No Information Shante Christensen. [address] [place], [place], [id number], [place]. tel:[phone] Family History Family Member Type Diagnosis Age At Onset No Information Payers Payer name Insurance type Covered constitution party ID Authoriza tion(s) No Information Social [...]
--- OUTSIDE RECORDS SUMMARY | 2024-07-02 05:16 | XMS_ITS ---
Author Organization The [facility] in [place] Address [address] [place] [address] Care Team Providers Care Data Recovery Planner Name Role Phone Maddie Gould Primary Care Provider REASON FOR VISIT + covid Medications Medication SIG (Take, Route, Frequency, Duration) Notes Start Date End Date Status Paxlovid (300/100) 20 x 150 MG & 10 x 100MG 3 tablets Orally Twice a day for 5 days 07/02/2024 Active Encounters Encounter Location Date Provider Diagnosis [facility] [address] [place] [address] 07/02/2024 Maddie Gould Plan Of Treatment Medication Medication Name Sig Start Date Stop Date Notes Paxlovid (300/100) 20 x 150 MG & 10 x 100MG 3 tablets Orally Twice a day for 5 days 07/02/2024 Progress Notes * Shilpi MILLARD MDOB:2005 (19 yo F)Acc No.[id number]:07/02/2024 Patient: Shilpi ARGUETA :2005 A ge:19 Y S ex:Female Address:[address] [place] [address] * Refills Start Paxlovid (300/100) Tablet Therapy [...] Date: Generated for Amina nguyen/Berkley/Uriah on: 0 04/30/2025 09:12 PM EDT
--- OUTSIDE RECORDS SUMMARY | 2024-10-16 05:30 | XMS_ITS ---
Author Organization [facility] in [place] Address [address] [place] [address] Care Team Providers Care Sales And Marketing Engineer Name Role Phone Maddie Gould Primary Care Provider Allergies No Known Allergies REASON FOR VISIT Presents to office alone for c/o sore throat in am, and pressure in left ear x 1-2 weeks Medications Medication SIG (Take, Route, Fr equency, Duration) Notes Start Date End Date Status 28-0.8 MG 1 tablet Orally Once a day Active Progesterone 200 MG as directed Vaginal Active Social History Tobacco Use: Social History Observation Description Date Details (start date - stop date) Never Smoker NA - NA Tobacco Use/Smoking Question Answer Notes Patient is a nonsmoker AUDIT-C (Standard) Question Answer Notes Did you have a drink containing alcohol in the p ast year? No Points 0 Interpretation Negative Vital Signs Weight 117.6 lbs 10/16/2024 Height 64 in 10/16/2024 Blood pressure systolic 100 mm Hg 10/16/20 24 Blood pressure diastolic 60 mm Hg 024 BMI 20.18 kg/m2 10/16/2024 Encounters Encounter Location Date Provider Diagnosis [facility] [address] [place] [address] 10/16/2024 Maddie Gould Seasonal allergic rhinitis J30.2 Assessments Encounter Date Diagnosis (ICD Code) Assessment Notes Treatment Notes Treatment Clinical Notes Section Notes 10/16/2024 Seasonal allergic rhinitis (ICD-10 - J30.2) check with Dr Espitia office regarding OTC Meds called patient with meds ok with Nupur for 9 weeks along fu if needed Plan Of Treatment Treatment Notes Assessment Notes Seasonal allergic rhinitis check with Dr Espitia office regarding OTC Meds called patient with meds ok with Nupur for 9 weeks along fu if needed Next Appt Details Follow Up: prn, Reason: Progress Notes * Shilpi MILLARD MDOB:2005 (19 yo F)Acc No.[id number]:10/16/2024 Progress Note Patient: Shilpi ARGUETA Provider: Stacie Gould ([facility]), PRIMARY THERAPIST :2005 A ge:19 Y S ex:Female Date:10/16/2024 Address:[address] [facility], [id number] Check In:09:26 AM ESTCheck O ut:10:17 AM EST Subjective: * Chief Complaints: * 1 . Presents to office alone for c/o sore throat in am, and pressure in left ear x 1-2 weeks. * HPI: G eneral: 9 weeks some nausea, sleepy ST for few days , more in am left ear bothering for 2 weeks right ear little bit. D epression Screening: PHQ-2 (2015 Edition) L ittle interest or pleasure in doing things??Several days F eeling down, depressed, or hopeless? S everal days T otal Score 2 D epression Screening: PHQ-9 L ittle interest or pleasure in doing things?Several days F eeling down, depressed, or hopeless S everal days T rouble falling or staying asleep, or sleeping too much M ore than half the days F eeling tired or having little energy S everal days P oor appetite or overeating S everal days F eeling bad about yourself or that you are a failure, or have let yourself or your family down S everal days T rouble concentrating on things, such as reading the newspaper or watching television N ot at all M oving or speaking so slowly that other people could have noticed; or the opposite, being so fidgety or restless that you have been moving around a lot more than usual N ot at all T houghts that you would be better off or of hurting yourself in some way S everal days (Consider Suicide Assessment Risk) T otal Score 8 I nterpretation M ild Depression * ROS: G eneral/Constitutional: Fever d enies. H eadache d enies. W eight loss?denies. O phthalmologic: Discharge d enies. E ye Pain d enies. I tching and redness d enies. E NT: Patient admits e ars feel full. N abe congestion d enies. N abe discharge d enies. S ore throat i n am, PND. C ardiovascular: Chest tightness/ heavy pressure d enies. R apid heart rate d enies. S welling of extremities d enies. C hest pain d enies. ? R espiratory: Productive cough d enies. C hest pain d enies. C ough d enies. S hortness of breath d enies. W heezing d enies. ? G astrointestinal: Abdominal pain d enies. C onstipation d enies. D ecreased appetite d enies. D iarrhea d enies. N ausea d enies. V omiting?denies. G enitourinary: Urinary incontinence d enies. P ainful urination d enies. M usculoskeletal: Back pain d enies. N hebert pain d enies. M uscle aches d enies. S kin: Rash d enies. S kin lesion(s) d enies. ? * Active Problem List F32.9 Depression Modified On:12/28/2023/U Status:confirmed J30.2 Seasonal allergic rh initis Modified On:12/28/2023/U Status:confirmed R68.89 Intolerant of heat Modified On:12/28/2023/U Status:confirmed * Medical History: D epression, Intolerant of heat, Seasonal allergic rhinitis. * Surgical History: E ye Surgery , Dental , iud placed and removed . * Family History: F ather: alive. M other: alive. B rother(s): alive. S ister(s): alive. M aternal Grandfather: , diagnosed with Unspecified essential hypertension, Unspecified heart disease. 2 brother(s) , 1 sister(s) . . * Social History: T obacco Use: T obacco Use/Smoking P atient is a n onsmoker D rug/Alcohol: A URSULA-C (Standard) D id you have a drink containing alcohol in the past year? N o P oints 0 I nterpretation N egative * Medications: T aking ( Vit-Fe Fumarate-FA) 28-0.8 MG Tablet 1 tablet Orally Once a day , Taking Progesterone 200 MG Suppository as directed Vaginal , Discontinued Paxlovid (300/100)(Nirmatrelvir&Ritonavir 300/100) 20 x 150 MG & 10 x 100MG Tablet Therapy Pack 3 tablets Orally Twice a day , Notes: Nirmatrelvir 300 mg with ritonavir 100 mg, administered together, twice daily for 5 days, Discontinued Triamcinolone Acetonide 0.1 % Cream 1 application Externally Twice a day , Medication List reviewed and reconciled with the patient * Allergies: N .K.D.A. Objective: * Vitals: W t:117.6lbs, Ht: 64 in, BP:100/60mm Hg, BMI:20.18Index, Ht-cm: 162.56 cm, Wt-k.34 kg. * Examination: G eneral Examinations: GENERAL APPEARANCE: a lert and oriented, i n no acute distress. EYES: c onjunctiva normal, sclera non-icteric. EARS: e xternal auditory canals are patent. Tympanic membranes are pearly walls and mobile. NOSE: n ormal external appearance. THROAT: n ormal. LUNGS: c lear to auscultation bilaterally. CARDIO: r egular rate and rhythm, S1, S2 normal. ABDOMEN: s oft, nontender. MUSCULOSKELETAL: G ait and station normal. SKIN: w arm and dry. Assessment: * Assessment: 1. S easonal allergic rhinitis - J30.2 (Primary) Plan: * Treatment: * Follow Up: p rn * * Sign off status: Completed Visit Status: C HK (Check Out) true * Provider: Stacie Gould ([facility]), PRIMARY THERAPIST Date: 12/16/2023 Generated for Printi ng/Fanaldog/eTransmitting on: 0 04/30/2025 09:12 PM EDT History and Physical Notes * HPI (History of Present Illness) Category Sub-Category Detail Notes Category Not es Depression Screening PHQ-9 Little inte rest or pleasure in doing things: Several days Feeling down, depressed, or hopeless: Se veral days Trouble falling or staying a sleep, or sleeping too much: More than half the days Feeling tired or having little energy: S everal days Poor appetite or overeating: Several day s Feeling bad about yourself o r that you are a failure, or have let yourself or your family down: Several days Trouble concentrating on thi ngs, such as reading the newspaper or watching television: Not at all Moving or speaking so slowly that other people could have noticed; or the opposite, being so fidgety or restless that you have been moving around a lot more than usual: Not at all Thoughts that you would be b tanvi off or of hurting yourself in some way: Several days (Consider Suicide Assessment Risk) Total Score: 8 Interpretation: Mild Depression General 9 weeks some nausea, sleepy ST for few days , more in am left ear bothering for 2 weeks right ear little bit Depression Screening PHQ-2 (2015 Edition) Little interest or pleasure in doing things?: Several days Feeling down, depressed, or hopeless?: S everal days Total Score: 2 Examination Category Sub-Category Detail Notes Category Not es General Examinations GENERAL APPEARANCE: alert a nd oriented, in no acute distress EYES: conjunctiva normal, sclera non-icteric EARS: external auditory ca nals are patent. Tympanic membranes are pearly walls and mobile NOSE: normal external appe arance THROAT: normal CARDIO: regular rate and rhy thm, S1, S2 normal LUNGS: clear to auscultatio n bilaterally ABDOMEN: soft, nontender SKIN: warm and dry BACK: MUSCULOSKELETAL: Gait and station nor mal LYMPH NODES:
--- OUTSIDE RECORDS SUMMARY | 2024-10-16 06:57 | XMS_ITS ---
Author Organization The [facility] in [place] Address [address] [place] [address] Care Team Providers Care Staff Development Coordinator Rn Name Role Phone Maddie Gould Primary Care Provider REASON FOR VISIT allergy Encounters Encounter Location Date Provider Diagnosis [facility] [address] [place] [address] 10/16/2024 Maddie Gould Plan Of Treatment No Information Progress Notes * Shilpi MILLARD MDOB:2005 (19 yo F)Acc No.[id number]:10/16/2024 Patient: Ronald Shilpi MARTINEZ :2005 A ge:19 Y S ex:Female Address:[address] [place] [address] * true * Date: Generated for Printi ng/Faxing/eTransmitting on: 0 04/30/2025 10:19 AM EDT
--- OUTSIDE RECORDS SUMMARY | 2025-04-30 21:13 | XMS_ITS | Patient Health Record ---
Author Organization [facility] Address [address] [place] [address] Support Name Relationship Address Phone CONCHITA Yeimi Emergency Contact [address] [place] [address] FREEMANSHAUNNA Guarantor Unknown [phone] Reason For Referral No Information Problems Problem Type SNOMED Code ICD Code Onset Dates Problem Status W/U Status Risk Notes Problem [id number] Social anxiety disorder (F40.10) Active confirmed Plan Of Treatment No Information Insurance Providers Payer Name Payer Address Payer Phone Subscriber Number Group Number Insured Name Patient Relationship to Insured Coverage Start Date Coverage End Date [employer] [address] [address] [place] [address] [id number] YIN MILLARD Self - patient is the insured 1 [facility] CHP-termed 22 [address] [place] [address] [id number] [facility] YIN MILLARD Self - patient is the insured 2 [employer] MED[employer] after [facility] CHP-termed 22 [address] [place] [address] [id number] YIN MILLARD Self - patient is the insured 2
--- OUTSIDE RECORDS SUMMARY | 2025-04-30 21:13 | XMS_ITS | Clinical Summary ---
Author Organization [facility] [employer] [facility] tem Address [id number] [address] [place] [address] Care Team Providers Care Rn Telephonic Name Role Phone Unavailable Primary Care Provider Unavailabl e Allergies Active Allergy Reactions Criticality Noted Date Comments [place] GI Disturbance Medium 04/18/2024 Iron Hives Medium 05/05/2022 Latex Hives,Rash Low 09/24/2019 Medications [id number]-dha (PRENA1 TRUE) 30 mg iron- 1.4 [...] 2:00 PM EDT Telemedicine Maternal- Medicine at [facility] [address] [place] [address] Dwayne Hernandez MD SGA (small for gestational age), 1,000-1,249 grams (Primary Dx); Poor growth affecting management of mother in third trimester, single or unspecified fetus 03/27/2025 Travel 03/26/2025 Telephone [facility] [address] [place] [phone] Melina Head RN 03/25/2025 Abstract [facility] Medicine at [facility] [address] [place] [id number] Dwayne Hernandez MD 03/24/2025 Orders Only [facility] Medicine at [facility] [address] [place] [address] Estrellita Weinberg RN SGA (small for gestational [...] period is included. Anatomical Region Laterality Modality OB-TOOL DIE MAKER Ultrasound 04/17/2025 2:58 PM EDT Narrative 04/18/2025 9:02 AM EDT NAME: FREEMAN ESQUEDA : 2005 SEX: F Accession Number: [id number] ORDERING PHYSICIAN: CHARITY LEONARD REFERRING PHYSICIAN: HO [place] Coding ----- --------- Procedures [id number]: Follow-up Ultrasound, per fetus [address]68: Doppler velocimetry, ; umbilical artery Indication ----- --------- IUGR-Poor growth History ----- --------- OB History 2. Para 0 [id number] Maternal Assessment ----- --------- Physical Exam Height [...] EFW (oz) 1 oz EFW by: Hadlock ([id number]) Extended Tibia 56.0 mm 32w 6d 5% Arutro Foot 72.7 mm 44% Chitty Wooden Box Maker 2.9 mm Head / Face / Neck [...] 3.7 cm. Recommendations ----- --------- Please see [facility] recommendations from prior clinical and/or ultrasound report documentation. Subsequent follow up or other follow up as clinically determined by primary OB provider unless otherwise specified by M. Results forwarded to ordering provider so they can follow up with the patient as necessary. Procedure Note Charity Leonard MD - 04/18/2025 NAME: FREEMAN ESQUEDA : 2005 SEX: F Accession Number: [id number] ORDERING PHYSICIAN: CHARITY LEONARD REFERRING PHYSICIAN: HO [place] Coding ----- --------- Procedures 78086: Follow-up Ultrasound, per fetus 49514: Doppler velocimetry, ; umbilical artery Indication ----- --------- IUGR-Poor growth History ----- --------- OB History 2. Para 0 [id number] Maternal Assessment ----- --------- Physical Exam Height [...] EFW (oz) 1 oz EFW by: Jadiel ([id number]) Extended Tibia 56.0 mm 32w 6d 5% Arturo Foot 72.7 mm 44% Chitty Wooden Box Maker 2.9 mm Head / Face / Neck [...] 3.7 cm. Recommendations ----- --------- Please see [facility] recommendations from prior clinical and/or ultrasoundreport documentation. Subsequent follow up or other follow up as clinically determined byprimary OB provider unless otherwise specified by [facility]. Results forwarded to ordering provider so they can follow up with thepatient as necessary. us Charity Leonard MD G ORDERABLES Final Re sult from Last [address] [place] [place] [address] [employer]
--- OUTSIDE RECORDS SUMMARY | 2025-04-30 21:14 | XMS_ITS | CCD ---
Author Organization [facility] CliniSynm Care Team Providers Care [employer] Supervisor Name Role Phone Iker OLIVAS Primary Care [...] SANTANA Consulting Unavailable TRINITY Almendarez Attending Provider [phone] Unavailable Primary Care Provider UnavailIsabella Christensen Attending Unavailable Isabella Almendarez Admitting Unavailable NON STAFF Primary Care Unavailable Unavailable Primary Care Provider UnavailBAKARI Diaz Attending Unavailable NUPUR, EL R Referring Unavailable NUPUR, EL R Referring Unavailable NUPUR, EL R Referring Unavailable NUPUR, EL R Referring Unavailable NUPUR, EL Referring Unavailable NUPURNADEEMY Attending Unavailable NUPUR, EL Attending Unavailable JUAN DIEGO, NHUNG Attending Unavailable NUPUR, EL Attending Unavailable NUPUR, EL Attending Unavailable NUPUR, EL Attending Unavailable NUPUR, EL Attending Unavailable NUPUR, EL Referring Unavailable NHUNG YBARRA Attending Unavailable NUPUR, EL Attending Unavailable JUAN DIEGO, NHUNG Attending Unavailable Allergies Allergy Classification Reported Allergen(s) Allergy Type Date of Onset Reaction(s) Facility (20 sources) Latex; Translations: [LATEX] Drug allergy 9 Eruption of skin (disorder), Unknown, Rash, Hives [facility] (3 sources) contact metals 1 Drug allergy Eruption of skin (disorder) [facility] Comment on above: family states pt dev elops rash to alumininum in deoderant, fake jewelry (possibly kp?), etc (8 sources) Coconut extract; Translations: [coconut] Drug Allergy 2 GI Disturbance [facility] (20 sources) Iron; Translations: [IRON] [facility] (2 sources) contact metal agent Drug allergy (disorder) 4 Rash [facility] Repository (1 source) contact metals; Translations: [contact metals] Propensity to adverse reactions (disorder) [facility] Repository (20 sources) Coconut extract Drug Allergy 4 GI intolerance [facility] Healthcare (20 sources) Other Propensity to adverse reactions 9 Unknown [facility] Healthcare (1 source) contact metal agent Drug allergy (disorder) 4 [facility] Repository Medications Current Medications Medication Drug Class(es) [...] day(s), # 28 tab(s), Refills(s) 0, Pharmacy: [facility]/pharmacy #[id number], 161, cm, 03/16/22 14:08:00 EDT, Height/Length Dosing, 55.9, kg, 03/16/22 14:08:00 EDT, Weight Dosing Start Date: 03/16/22 Stop Date: 03/30/22 Status: Ordered cephalexin 500 mg oral capsule (2 sources) Cephalosporin Antibacterial Start: 04-18-2024 take 500 mg by mouth three times daily Cephalexin Active 500 MG PO Three times daily 09 06April 18, 2024 12:00am Start: 02-25-2022 take 1 capsule by mo [facility] every eight hours Cephalexin 500 MG 1 capsule Orally tid for 10 day(s) Feb, Active cetirizine hydrochloride 10 mg oral tablet (4 sources) Histamine-1 Receptor Antagonist Start: 01-11-2023 take 1 tablet by mouth every twenty-four hours Cetirizine HCl 10 MG 1 tablet Orally Once a day for 30 day(s) Dec, Active Start: 03-02-2022 [facility] needed cetirizine 10 mg Tab 10 mg = 1 tab(s), Oral, Daily, PRN for allergy symptoms, # 30 tab(s), Refills(s) 0, Pharmacy: [facility]/pharmacy #[id number], 164, cm, 03/02/22 14:37:00 EDT, Height/Length [...] qPM, # 30 tab(s), Refills(s) 0, Pharmacy: [facility]/pharmacy #[id number], 165.5, cm, 02/22/22 13:27:00 EDT, Height/Length Dosing, 54, kg, 02/22/22 13:27:00 EDT, Weight Dosing Start Date: 02/22/22 Status: Ordered Zerllq-AcGdwr-DO-DHA w/o Vit A (Prena 1 True) 30-1.4 & 300 MG misc (3 sources) Npjzul-QwLmjz-RR -DHA w/o Vit A (Prena 1 True) 30-1.4 & 300 MG misc Take 1 tablet by mouth in the morning. Active 224-mkdv-accls ac-dha (PRENA1 TRUE) 30 mg iron- 1.4 mg-300 mg combo pack (1 source) take 1 tablet by mouth in the morning 185-zulv-eawdw ac-dha (PRENA1 TRUE) 30 mg iron- 1.4 [...] 03-02-2022 Episodic Other and delivery including normal (18 sources) ; Translations: [Encounter for supervision of [...] [34 weeks gestation of ] 04-08-2025 Episodic Residual codes; unclassified (2 sources) Gestation period, 37 weeks; Translations: [37 weeks gestation of ] 04-30-2025 Episodic Short gestation; low weight; and growth retardation (6 sources) Nbwpz-cim-ugfmv baby; Translations: [Russell small for gestational age, unspecified weight] Onset: [...] Range Facility Urinalysis macro (dipstick) panel (U)on 04-30-2025 Bilirubin, UA Negative Negative - 4(70) +++ mg/dL [facility] Healthcare Blood, UA Positive Negative - 50 Rambo/mcL [facility] Comment on above: large Clarity, UA Clear [facility] Color, UA Yellow [facility] Glucose, UA Negative Negative - 1999(110) ++++ mg/dL [facility] Interpretation and review of laboratory results Abnormal [facility] Ketones, UA Negative Negative - 160(16) ++++ mg/dL [facility] Leukocytes, UA Positive Negative - 500+++ Charity/mcL [facility] Nitrite, UA Negative Negative - Positive [facility] pH, UA 6.5 5 - 9 [facility] Protein, UA Positive Negative - 1999(20) ++++ mg/dL [facility] Comment on above: 30 Spec Grav, UA 1.025 1 - 1.03 [facility] Urobilinogen, UA 0.2 0.2 - 12 mg/dL [facility] BPP W NON-STRESS on 04-08-2025 [place] [address] Ultrasound Report Signed Patient: SHILPI MILLARD MR#: [id number] : 2005 Acct:[id number] Age/Sex: 20 / F ADM Date: 04/08/25 Loc: US Attending Dr: El Espitia D.O. Ordering Physician: El Espitia D.O. Date of Service: 04/08/25 Procedure(s): US OB BPP w non-stress Accession Number(s): [id number] cc: MADDIE COREA ; El Espitia D.O. [facility] [place] [id number] Patient Name: SHILPI MILLARD MRN: [id number] date: 2005 Sex: F Assigned Patient Location: [facility] Current Patient Location: Accession/Order Number: [id number] Exam Date: 04/08/2025 16:39 Report Date: 04/08/2025 [...] Soto M.D. 04/08/2025 4:40 PM Dictation Location: [place] [address] Electronically authenticated by: [id number] Y Date: 04/08/2025 16:40 Dictated By: Franck Soto D.O. Signed By: 04/08/25 1643 DD/ 1640 TD/TT: Quality Worker: [facility] Radiology, Radiologist, MD - 04/08/2025 [place] [address] Ultrasound Report Signed Patient: SHILPI MILLARD MR#: [id number] : 2005 Acct:[id number] Age/Sex: 20 / F ADM Date: 04/08/25 Loc: US Attending Dr: El Espitia D.O. Ordering Physician: El Espitia D.O. Date of Service: 04/08/25 Procedure(s): US OB BPP w non-stress Accession Number(s): [id number] cc: MADDIE COREA ; El Espitia D.O. [facility] [place] [id number] Patient Name: SHILPI MILLARD MRN: [facility]:[id number] date: 2005 Sex: F Assigned Patient Location: [facility] Current Patient Location: Accession/Order Number: [id number] Exam Date: 04/08/2025 16:39 Report Date: 04/08/2025 [...] Soto M.D. 04/08/2025 4:40 PM Dictation Location: [place] [address] Electronically authenticated by: [id number] Y Date: 04/08/2025 16:40 Dictated By: Franck Soto D.O. Signed By: 04/08/25 1643 DD/ 1640 TD/TT: Quality Worker: [facility] Radiology Study observation (narrative) [facility] US OB BPP W NON-STRESS Ordered By: Radiologist Radiology on 04-08-2025 [facility] Work Phone: Urinalysis macro (dipstick) panel (U)on 04-08-2025 Bilirubin, UA Negative Negative - 4(70) +++ mg/dL [facility] Blood, UA Negative Negative - 50 Rambo/mcL [facility] Clarity, UA Clear [facility] re Color, UA Yellow [facility] Glucose, UA Negative Negative - 2000(110) ++++ mg/dL [facility] Interpretation and review of laboratory results Normal [facility] Ketones, UA Negative Negative - 160(16) ++++ mg/dL [facility] Leukocytes, UA Negative Negative - 500+++ Charity/mcL [facility] Nitrite, UA Negative Negative - Positive [facility] pH, UA 5.5 5 - 9 [facility] [employer] Protein, UA Negative Negative - 2000(20) ++++ mg/dL [facility] Spec Grav, UA 1.02 1 - 1.03 [facility] Urobilinogen, UA 1.0 0.2 - 12 mg/dL [facility] US MFM with or without consu lton 04-03-2025 NAME: FREEMAN ESQUEDA : 2005 SEX: F Accession Number: [id number] ORDERING PHYSICIAN: BAKARI HOWELL REFERRING PHYSICIAN: EL ESPITIA Coding Procedures 98395: Limited OB / JOSEPH, 1 or More Fetuses 83554: Doppler velocimetry, ; umbilical artery Indication IUGR-Poor growth History OB History 2. Para 0 [id number] Maternal Assessment Physical Exam Height 163 cm, [...] MVP measures 6.5 cm. Recommendations Please see [facility] recommendations from prior clinical and/or ultrasound report documentation. The patient is scheduled in 2 week(s) for growth and Doppler. Subsequent follow up or other follow up as clinically determined by primary OB provider unless otherwise specified by [facility]. Results forwarded to ordering provider so they can follow up with the patient as necessary. [facility] Bruno Leonard MD - 04/03/2025 NAME: FREEMAN ESQUEDA : 2005 SEX: F Accession Number: [id number] ORDERING PHYSICIAN: BAKARI HOWELL REFERRING PHYSICIAN: EL ESPITIA Coding Procedures 27988: Limited OB / JOSEPH, 1 or More Fetuses 28080: Doppler velocimetry, ; umbilical artery Indication IUGR-Poor growth History OB History 2. Para 0 [id number] Maternal Assessment Physical Exam Height 163 cm, [...] MVP measures 6.5 cm. Recommendations Please see [facility] recommendations from prior clinical and/or ultrasound report documentation. The patient is scheduled in 2 week(s) for growth and Doppler. Subsequent follow up or other follow up as clinically determined by primary OB provider unless otherwise specified by [facility]FM. Results forwarded to ordering provider so they can follow up with the patient as necessary. [facility] Radiology Study observation (narrative) [facility] US MFM with or without consu ltOrdered By: Bruno Leonard on 04-03-2025 [facility] Work Phone: US OB BPP W NON-STRESS on 03-25-2025 [place] [address] Ultrasound Report Signed Patient: SHILPI MILLARD MR#: [id number] : 2005 Acct:[id number] Age/Sex: 20 / F ADM Date: 03/25/25 Loc: [facility] 250-[address]: El Espitia D.O. Ordering Physician: El Espitia D.O. Date of Service: 03/25/25 Procedure(s): US OB BPP w non-stress Accession Number(s): [id number] cc: MADDIE COREA ; El Espitia D.O. [place] [id number] Patient Name: SHILPI MILLARD MRN: [id number] date: 2005 Sex: F Assigned Patient Location: [facility] Current Patient Location: [facility] Accession/Order Number: [id number] Exam Date: 03/25/2025 11:31 Report Date: 03/25/2025 [...] Jr., D.O. 03/25/2025 11:32 AM Dictation Location: [place] [address] Electronically authenticated by: [id number] Y Date: 03/25/2025 11:32 Dictated By: Juan Ramon Lopez M.D. Signed By: 03/25/251134 DD/ 31 TD/TT: Quality Worker: [facility] Radiology, Radiologist, - 03/25/2025 [place] [address] Ultrasound Report Signed Patient: SHILPI MILLARD MR#: [id number] : 2005 Acct:[id number] Age/Sex: 20 / F ADM Date: 03/25/25 Loc: [facility] 250-[address]: El Espiita D.O. Ordering Physician: El Espitia D.O. Date of Service: 03/25/25 Procedure(s): US OB BPP w non-stress Accession Number(s): [id number] cc: MADDIE COREA ; El Espitia D.O. [place] [address] Patient Name: SHILPI MILLARD MRN: [facility]:[id number] date: 2005 Sex: F Assigned Patient Location: [facility] Current Patient Location: [facility] Accession/Order Number: [id number] Exam Date: 03/25/2025 11:31 Report Date: 03/25/2025 [...] Jr., D.O. 03/25/2025 11:32 AM Dictation [facility] Electronically authenticated by: [id number] Y Date: 03/25/2025 11:32 Dictated By: Juan Ramon Lopez M.D. Signed By: 03/25/251134 DD/ 31 TD/TT: Quality Worker: [facility] Radiology Study observation (narrative) [facility] OB BPP W NON-STRESS Ordered By: Radiologist Radiology on 03-25-2025 [facility] [employer] Work Phone: US OB FOLLOW UP [...] II, MD, PHD at 23-Mar-2025 08:55:00 PM [facility] Normal Not Available Comment on above: [...] II, MD, PHD at 08-Mar-2025 06:48:44 PM [facility] Normal Not Available Comment on above: Order Comment: US OB INCOMPLETE ANATOMY Estimated Date of Delivery: 05/15/25 Gestational Age as of 02/20/2025: 28w0d Urinalysis macro (dipstick) panel (U)on 03-06-2025 Bilirubin, UA Negative Negative - 4(70) +++ mg/dL [facility] Blood, UA Negative Negative - 50 Rambo/mcL [facility] Healthcare Clarity, UA Clear [facility] re Color, UA Yellow [facility] Glucose, UA Negative Negative - 1999(110) ++++ mg/dL [facility] Interpretation and review of laboratory results Normal [facility] Ketones, UA Negative Negative - 160(16) ++++ mg/dL [facility] Leukocytes, UA Negative Negative - 500+++ Charity/mcL [facility] Nitrite, UA Negative Negative - Positive [facility] pH, UA 6.5 5 - 9 [facility] e Protein, UA Negative Negative - 1999(20) ++++ mg/dL [facility] Spec Grav, UA 1.02 1 - 1.03 [facility] Urobilinogen, UA 0.2 0.2 - 12 mg/dL [facility] Urinalysis macro (dipstick) panel (U)on 02-20-2025 Bilirubin, UA Negative Negative - 4(70) +++ mg/dL [facility] Blood, UA Negative Negative - 50 Rambo/mcL [facility] Clarity, UA Clear [facility] Color, UA Yellow [facility] Glucose, UA Negative Negative - 1999(110) ++++ mg/dL [facility] Interpretation and review of laboratory results Normal [facility] Ketones, UA Negative Negative - 160(16) ++++ mg/dL [facility] Leukocytes, UA Trace Negative - 500+++ Charity/mcL [facility] Nitrite, UA Negative Negative - Positive [facility] pH, UA 7 5 - 9 [facility] Protein, UA Trace Negative - 1999(20) ++++ mg/dL [facility] Spec Grav, UA 1.02 1 - 1.03 [facility] Urobilinogen, UA 0.2 0.2 - 12 mg/dL [facility] TBH UA (CLEAN/CATCH) STRAIGHTENER AND ALIGNER/VAMSI RO IF IND.on 02-13-2025 BILIRUBIN URINE Negative NEGATIVE [facility] thcare BLOOD URINE LARGE Abnormal NEGATIVE [facility] re Clarity (U) CLOUDY Abnormal CLEAR [facility] Color (U) LT. YELLOW YELLOW [facility] GLUCOSE URINE UA Negative NEGATIVE mg/dL [facility] Interpretation and review of laboratory results Abnormal [facility] Ketones Ql (U) Negative NEGATIVE mg/dL [facility] Leukocyte esterase Test strip Ql (U) TRACE Abnormal NEGATIVE [facility] NITRITE URINE Negative NEGATIVE [facility] pH (U) 7.0 [pH] 5.0 - 9.0 [facility] [place] [facility] PROTEIN URINE Negative NEG/TRACE mg/dL [facility] SPECIFIC GRAVITY URINE 1.010 1.005 - 1.025 [facility] URINE MICROSCOPIC INDICATED YES [facility] UROBILINOGEN URINE 0.2 EU/dL 0.2 - 1.0 EU/dL [facility] ALL CBC WITH AUTO DIFFon BASOPHILS ABSOLUTE AUTO 0 [facility] Basophils/100 WBC (Bld) 0.2 % 0.2 - 2.0 % [facility] Eosinophils/100 WBC (Bld) 0.6 % Low 0.9 - 7.0 % [facility] Erythrocyte distribution width (RBC) [Ratio] 12.8 % 11.0 - 15.0 % [facility] Hematocrit (Bld) [Volume fraction] 35.4 % Low 36.0 - 48.0 % [facility] Hemoglobin (Bld) [Mass/Vol] 11.9 g/dL Low 12.0 - 16.0 g/dL [facility] IMMATURE GRANULOCYTES ABS AUTO 0.08 High [facility] Immature granulocytes/100 WBC (Bld) 0.8 % High 0.0 - 0.5 % [facility] Interpretation and review of laboratory results Abnormal [facility] LYMPHOCYTES ABSOLUTE AUTO 1.3 [facility] Lymphocytes/100 WBC (Bld) 12.7 % Low 20.5 - 60.0 % [facility] MCH (RBC) [Entitic mass] 28.5 pg 26.7 - 34.0 pg [facility] MCHC (RBC) [Mass/Vol] 33.6 g/dL 29.9 - 35.2 g/dL [facility] MCV (RBC) [Entitic vol] 84.9 fL 81.0 - 99.0 fL [facility] MONOCYTES ABSOLUTE AUTO 0.5 [facility] Monocytes/100 WBC (Bld) 5.2 % 1.7 - 12.0 % [facility] NEUTROPHILS ABSOLUTE AUTO 8.2 High [facility] Neutrophils/100 WBC (Bld) 80.5 % High [...] CA ECHO DOPPLER COMPLETEon 0 01-30-2025 [place] [address] Cardiology Report Signed Patient: SHLIPI MILLARD MR#: [id number] : 2005 Acct:[id number] Age/Sex: 19 / F ADM Date: 01/30/25 Loc: CARD Attending Dr: El Espitia D.O. Ordering Physician: El Espitia D.O. Date of Service: 01/30/25 Procedure(s): CA echo doppler complete Accession Number(s): [id number] cc: MADDIE OCREA ; El Espitia D.O. Patient Name: SHILPI MILLARD MR#: [id number] : 2005 Exam Date: 01/30/2025 Ordering Doctor: [...] Signed By: 01/30/252011 (more content not included)... [facility] Radiology, Radiologist, MD - 01/30/2025 [place] [address] Cardiology Report Signed Patient: SHILPI MILLARD MR#: [id number] : 2005 Acct:[id number] Age/Sex: 19 / F ADM Date: 01/30/25 Loc: CARD Attending Dr: El Espitia D.O. Ordering Physician: El Espitia D.O. Date of Service: 01/30/25 Procedure(s): CA echo doppler complete Accession Number(s): [id number] cc: MADDIE COREA ; El Espitia D.O. Patient Name: SHILPI MILLARD MR#: [id number] : 2005 Exam Date: 01/30/2025 Ordering Doctor: [...] AMBROSIO Signed By: 01/30/252011 DD/ 10 TD/TT: Quality Worker: [facility] Radiology Study observation (narrative) [facility] ECHO DOPPLER COMPLETEOrde red By: Radiologist Radiology on 01-30-2025 [facility] [place] [facility] Work Phone: Urinalysis macro (dipstick) panel (U)on 01-23-2025 Bilirubin, UA Negative Negative - 4(70) +++ mg/dL [facility] Blood, UA Positive Negative - 50 Rambo/mcL [facility] Comment on above: trace-intact Clarity, UA Clear [facility] re Color, UA Yellow [facility] [place] [facility] Glucose, UA Negative Negative - 1999(110) ++++ mg/dL [facility] Interpretation and review of laboratory results Abnormal [facility] Ketones, UA Negative Negative - 160(16) ++++ mg/dL [facility] Leukocytes, UA Trace Negative - 500+++ Charity/mcL [facility] Nitrite, UA Negative Negative - Positive [facility] pH, UA 6 5 - 9 [facility] e Protein, UA Negative Negative - 1999(20) ++++ mg/dL [facility] Spec Grav, UA 1.025 1 - 1.03 [facility] Urobilinogen, UA 0.2 0.2 - 12 mg/dL [facility] ALL CBC WITH AUTO DIFFon BASOPHILS ABSOLUTE AUTO 0 [facility] Basophils/100 WBC (Bld) 0.3 % 0.2 - 2.0 % [facility] Eosinophils/100 WBC (Bld) 0.3 % Low 0.9 - 7.0 % [facility] Erythrocyte distribution width (RBC) [Ratio] 13 % 11.0 - 15.0 % [facility] Hematocrit (Bld) [Volume fraction] 34.9 % Low 36.0 - 48.0 % [facility] Hemoglobin (Bld) [Mass/Vol] 11.9 g/dL Low 12.0 - 16.0 g/dL [facility] IMMATURE GRANULOCYTES ABS AUTO 0.07 High [facility] Immature granulocytes/100 WBC (Bld) 0.6 % High 0.0 - 0.5 % [facility] Interpretation and review of laboratory results Abnormal [facility] LYMPHOCYTES ABSOLUTE AUTO 1.5 [facility] Lymphocytes/100 WBC (Bld) 12.8 % Low 20.5 - 60.0 % [facility] MCH (RBC) [Entitic mass] 28.6 pg 26.7 - 34.0 pg [facility] MCHC (RBC) [Mass/Vol] 34.1 g/dL 29.9 - 35.2 g/dL [facility] MCV (RBC) [Entitic vol] 83.9 fL 81.0 - 99.0 fL [facility] MONOCYTES ABSOLUTE AUTO 0.7 [facility] Monocytes/100 WBC (Bld) 5.8 % 1.7 - 12.0 % [facility] NEUTROPHILS ABSOLUTE AUTO 9.6 High [facility] Neutrophils/100 WBC (Bld) 80.2 % High 43.0 - 75.0 % [facility] Platelet mean volume (Bld) [Entitic vol] 9.1 fL Low 9.5 - 13.5 fL [facility] Healthc are TBH EO # 0 [facility] TB[facility] PLT 316 [facility] RBC 4.16 Low [facility] WBC 12 High [facility] No Panel Informationon 01-01 STAPHYLOCOCCUS EPIDERMIDIS, HAEMOLYTICUS, LUGDUNENSIS, SAPROPHYTICUS (URINA 0 [facility] care STAPHYLOCOCCUS EPIDERMIDIS, HAEMOLYTICUS, LUGDUNENSIS, SAPROPHYTICUS (URINA Not detected [facility] URINARY TRACT INFECTION (HTR X)on 01-01-2025 [...] [facility] CITROBACTER FREUNDII Not detected NO [facility] ENTEROBACTER AEROGENES, CLOACAE 0 [facility] ENTEROBACTER AEROGENES, CLOACAE Not detected [facility] ENTEROCOCCUS FAECALIS, FAECIUM 0 [facility] ENTEROCOCCUS FAECALIS, FAECIUM Not detected [facility] ESCHERICHIA COLI 0 [facility] ESCHERICHIA COLI Not detected [facility] KLEBSIELLA PNEUMONIAE, OXYTOCA 0 [facility] are KLEBSIELLA PNEUMONIAE, OXYTOCA Not detected [facility] [...] A short-term follow-up ultrasound is recommended. Electronically Signed:Ripall y signed by ARTURO PUENTE II, MD, PHD at 01-Jan-2025 08:23:57 AM [facility] Normal Not Available Comment on above: Order Comment: US OB ANATOMY SINGLE W US OB CERVICAL LENGTH Estimated Date of Delivery: None noted. Gestational Age as of 11/26/2024: Unknown Urinalysis macro (dipstick) panel (U)on 11-26-2024 Bilirubin, UA Negative Negative - 4(70) +++ mg/dL [facility] Blood, UA Negative Negative - 50 Rambo/mcL [facility] Clarity, UA Clear [facility] Color, UA Yellow [facility] Glucose, UA Negative Negative - 2000(110) ++++ mg/dL [facility] Interpretation and review of laboratory results Normal [facility] Ketones, UA Negative Negative - 160(16) ++++ mg/dL [facility] Leukocytes, UA Negative Negative - 500+++ Charity/mcL [facility] Nitrite, UA Negative Negative - Positive [facility] pH, UA 6 5 - 9 [facility] Protein, UA Negative Negative - 2000(20) ++++ mg/dL [facility] Spec Grav, UA 1.025 1 - 1.03 [facility] Urobilinogen, UA 0.2 0.2 - 12 mg/dL [facility] e ALL CBC WITH AUTO DIFFon BASOPHILS ABSOLUTE AUTO 0 [facility] Basophils/100 WBC (Bld) 0.2 % 0.2 - 2.0 % [facility] Eosinophils/100 WBC (Bld) 0.2 % Low 0.9 - 7.0 % [facility] Erythrocyte distribution width (RBC) [Ratio] 13.5 % 11.0 - 15.0 % [facility] Hematocrit (Bld) [Volume fraction] 36.7 % 36.0 - 48.0 % [facility] Hemoglobin (Bld) [Mass/Vol] 12.5 g/dL 12.0 - 16.0 g/dL [facility] IMMATURE GRANULOCYTES ABS AUTO 0.04 High [facility] Immature granulocytes/100 WBC (Bld) 0.3 % 0.0 - 0.5 % [facility] Interpretation and review of laboratory results Abnormal [facility] LYMPHOCYTES ABSOLUTE AUTO 1.7 [facility] Lymphocytes/100 WBC (Bld) 14 % Low 20.5 - 60.0 % [facility] MCH (RBC) [Entitic mass] 27.9 pg 26.7 - 34.0 pg [facility] MCHC (RBC) [Mass/Vol] 34.1 g/dL 29.9 - 35.2 g/dL [facility] MCV (RBC) [Entitic vol] 81.9 fL 81.0 - 99.0 fL [facility] MONOCYTES ABSOLUTE AUTO 0.7 [facility] Monocytes/100 WBC (Bld) 5.6 % 1.7 - 12.0 % [facility] NEUTROPHILS ABSOLUTE AUTO 9.7 High [facility] Neutrophils/100 WBC (Bld) 79.7 % High 43.0 - 75.0 % [facility] Platelet mean volume (Bld) [Entitic vol] 9.2 fL Low 9.5 - 13.5 fL [facility] EO # 0 [facility] TB PLT 314 [facility] TB RBC 4.48 [facility] TB WBC 12.2 High [facility] HCG ( test) Ql (U)o n 10-25-2024 Preg Test, Ur Positive Negative [facility] care [facility] Urinalysis macro (dipstick) panel (U)on 10-25-2024 Bilirubin, UA Negative Negative - 4(70) +++ mg/dL [facility] Blood, UA Negative Negative - 50 Rambo/mcL [facility] Clarity, UA Clear [facility] re Color, UA Yellow [facility] e Glucose, UA Negative Negative - 1999(110) ++++ mg/dL [facility] Interpretation and review of laboratory results Normal [facility] Ketones, UA Negative Negative - 160(16) ++++ mg/dL [facility] Leukocytes, UA Negative Negative - 500+++ Charity/mcL [facility] Nitrite, UA Negative Negative - Positive [facility] pH, UA 6 5 - 9 [facility] e Protein, UA Negative Negative - 1999(20) ++++ mg/dL [facility] Spec Grav, UA 1.025 1 - 1.03 [facility] Urobilinogen, UA 0.2 0.2 - 12 mg/dL [facility] [place] [facility] PREG QUANT HCGon 09-14- 024 HCG QUANTITATIVE 8309 mIU/mL [facility] ltare Comment on above: 5-50 0.2-1 WEEK 50-500 1-2 WEEKS 100-5,000 2-3 WEEKS 500-10,000 3-4 WEEKS 1,000-50,000 4-5 WEEKS 10,000-100,000 5-6 WEEKS 15,000-200,000 6-8 WEEKS 10,000-100,000 2-3 MONTHS [facility] [place] [facility] TB PREG QUANT HCGon 24-2 024 HCG QUANTITATIVE 3351 mIU/mL [facility] Comment on above: 5-50 0.2-1 WEEK 50-500 1-2 WEEKS 100-5,000 2-3 WEEKS 500-10,000 3-4 WEEKS 1,000-50,000 4-5 WEEKS 10,000-100,000 5-6 WEEKS 15,000-200,000 6-8 WEEKS 10,000-100,000 2-3 MONTHS [facility] ALL CBC WITH AUTO DIFFon BASOPHILS ABSOLUTE AUTO 0.0 [facility] Basophils/100 WBC (Bld) 0.3 % 0.2 - 2.0 % [facility] Eosinophils/100 WBC (Bld) 0.8 % Low 0.9 - 7.0 % [facility] Erythrocyte distribution width (RBC) [Ratio] 13.0 % 11.0 - 15.0 % [facility] Hematocrit (Bld) [Volume fraction] 37.4 % 36.0 - 48.0 % [facility] Healthcar e Hemoglobin (Bld) [Mass/Vol] 12.1 g/dL 12.0 - 16.0 g/dL [facility] IMMATURE GRANULOCYTES ABS AUTO 0.02 [facility] Immature granulocytes/100 WBC (Bld) 0.3 % 0.0 - 0.5 % [facility] Interpretation and review of laboratory results Abnormal [facility] LYMPHOCYTES ABSOLUTE AUTO 1.5 [facility] Lymphocytes/100 WBC (Bld) 24.5 % 20.5 - 60.0 % [facility] MCH (RBC) [Entitic mass] 26.5 pg Low 26.7 - 34.0 pg [facility] MCHC (RBC) [Mass/Vol] 32.4 g/dL 29.9 - 35.2 g/dL [facility] MCV (RBC) [Entitic vol] 81.8 fL 81.0 - 99.0 fL [facility] MONOCYTES ABSOLUTE AUTO 0.3 [facility] Monocytes/100 WBC (Bld) 4.5 % 1.7 - 12.0 % [facility] NEUTROPHILS ABSOLUTE AUTO 4.1 [facility] Neutrophils/100 WBC (Bld) 69.6 % 43.0 - 75.0 % [facility] Platelet mean volume (Bld) [Entitic vol] 9.5 fL 9.5 - 13.5 fL [facility] Health[facility] are TBH EO # 0.1 [facility] TBH PLT 318 [facility] TB[facility] RBC 4.57 [facility] TBH WBC 6.0 [facility] Urine Cultureon 04-18-2024 Bacteria identified Cx Nom (U) 50,000 colonies/ml mixed bacterial skin contaminants 2 Days PERFORMED BY: [place] [address] PATHOLOGIST PROPERTY COORDINATOR MADAN TRIVEDI M.D. Normal [facility] Comment on above: Performed By: #### C UU #### [address] Physician Referralon 024 Physician Referral [phone] [id number] Normal [facility] ER URINE PROFILEon 3 Bilirubin Ql (U) Negative Normal NEGATIVE [facility] Comment on above: Performed By: #### E RUR, PREGU #### [facility] [address] [place] [address] Dr. iMkala Ramsay Clarity (U) CLEAR Normal CLEAR [facility] Comment on above: Performed By: #### E RUR, PREGU #### [facility] [address] [address] [address] Mikala Ramsay Color (U) LT. YELLOW Normal YELLOW [facility] Comment on above: Performed By: #### E RUR, PREGU #### [facility] [address] [place] [address] Dr. Mikala SPRAGUE A micrscopic examination will be performed if indicated. Normal [facility] Comment on above: Performed By: #### E RUR, PREGU #### [facility] [address] [address] [address] Mikala Ramsay Glucose Ql (U) Negative Normal NEGATIVE [facility] Comment on above: Performed By: #### E RUR, PREGU #### [facility] [address] [address] [address] Mikala Ramsay Hemoglobin Ql (U) Negative Normal NEGATIVE [facility] Comment on above: Performed By: #### E RUR, PREGU #### [facility] [address] [place] [address] Dr. Mikala Ramsay Ketones Ql (U) Negative Normal NEGATIVE [facility] Comment on above: Performed By: #### E RUR, PREGU #### [facility] [address] [place] [address] Dr. Mikala Ramsay LEUKOCYTES Negative Normal NEGATIVE [facility] Comment on above: Performed By: #### E RUR, PREGU #### [facility] [address] [place] [address] Dr. Mikala Rmasay Nitrite Ql (U) Negative Normal NEGATIVE [facility] Comment on above: Performed By: #### E RUR, PREGU #### [facility] [address] [place] [address] Dr. Mikala Ramsay pH (U) 8.0 [pH] Normal 5-9 [facility] Comment on above: Performed By: #### E RUR, PREGU #### [facility] [address] [place] [address] Dr. Mikala Ramsay SPEC GRAVITY 1.015 Normal 1.005-<=1.025 [facility] Comment on above: Performed By: #### E RUR, PREGU #### [facility] [address] [place] [address] Dr. Mikala Ramsay UA PROTEIN Negative Normal NEGATIVE/ TRACE [facility] Comment on above: Performed By: #### E RUR, PREGU #### [facility] [address] [place] [address] Dr. Mikala Ramsay UR MICRO IND NOT INDICATED Normal [facility] Comment on above: Performed By: #### E RUR, PREGU #### [facility] [address] [place] [address] Dr. Mikala Ramsay Urobilinogen Qn (U) 0.2 {Jose'U}/dL Normal 0.2 - 1. 0 [facility] Comment on above: Performed By: #### E RUR, PREGU #### [facility] [address] [place] [address] Dr. Mikala Ramsay URon 11-25-2022 , QUAL Negative Normal NEGATIVE [facility] Comment on above: Performed By: #### E RUR, PREGU #### [facility] [address] [address] [address] Mikala Ramsay US PELVIS TRANSVAGon 023 [...] by: JONI MORALES Date: 2022-11-25 17:05 Normal [facility] XR KUB 1 VIEWon 11-25-2022 XR KUB [...] DOMO AN Date: 2022-11-25 14:56 Normal [facility] CBC AUTO DIFFon 09-06-2022 BASO # 0.0 103/ul Normal 0.0-0.1 [facility] Comment on above: Performed By: #### C BC #### [facility] [address] [address] [address] Mikala Ramsay Basophils/100 WBC (Bld) 0.3 % Normal 0.2-2.0 [facility] Comment on above: Performed By: #### C BC #### [facility] [address] [address] [address] Mikala Ramsay EO # 0.0 103/ul Normal 0.0-0.7 [facility] Comment on above: Performed By: #### C BC #### [facility] [address] [place] [address] Dr. Mikala Ramsay Eosinophils/100 WBC (Bld) 0.6 % Critically low 0.9-7.0 [facility] Comment on above: Performed By: #### C BC #### [facility] [address] [place] [address] Dr. Mikala Ramsay Erythrocyte distribution width (RBC) [Ratio] 14.0 % Normal 11.0-15.0 [facility] Comment on above: Performed By: #### C BC #### [facility] [address] [place] [address] Dr. Mikala Ramsay Hematocrit (Bld) [Volume fraction] 38.7 % Normal 36.0-48.0 [facility] Comment on above: Performed By: #### C BC #### [facility] [address] [place] [address] Dr. Mikala Ramsay Hemoglobin (Bld) [Mass/Vol] 12.5 g/dL Normal 12.0-16.0 [facility] Comment on above: Performed By: #### C BC #### [facility] [address] [place] [address] Dr. Mikala Ramsay IG # 0.02 10e3/ul Normal 0.00-0.03 [facility] Comment on above: Performed By: #### C BC #### [facility] [address] [place] [address] Dr. Mikala Ramsay IG % 0.3 % Normal 0.0-0.5 [facility] Comment on above: Performed By: #### C BC #### [facility] [address] [place] [address] Dr. Mikala Ramsay LYMPH # 1.2 103/ul Normal 1.2-3.8 [facility] Comment on above: Performed By: #### C BC #### [facility] [address] [place] [address] Dr. Mikala Ramsay Lymphocytes/100 WBC (Bld) 17.4 % Critically low 20.5-60.0 [facility] Comment on above: Performed By: #### C BC #### [facility] [address] [place] [address] Dr. Mikala Ramsay MANUAL DIFF REQ NO Normal [facility] Comment on above: Performed By: #### C BC #### [facility] [address] [place] [address] Dr. Mikala Ramsay MCH (RBC) [Entitic mass] 26.0 pg Critically low 26.7-34.0 [facility] Comment on above: Performed By: #### C BC #### [facility] [address] [place] [address] Dr. Mikala Ramsay MCHC (RBC) [Mass/Vol] 32.3 g/dL Normal 29.9-35.2 [facility] Comment on above: Performed By: #### C BC #### [facility] [address] [place] [address] Dr. Mikala Ramsay MCV (RBC) [Entitic vol] 80.5 fL Critically low 81.0-99.0 [facility] Comment on above: Performed By: #### C BC #### [facility] [address] [place] [address] Dr. Mikala Ramsay MONO # 0.4 103/ul Normal 0.3-0.8 [facility] Comment on above: Performed By: #### C BC #### [facility] [address] [place] [address] Dr. Mikala Ramsay Monocytes/100 WBC (Bld) 5.9 % Normal 1.7-12.0 [facility] Comment on above: Performed By: #### C BC #### [facility] [address] [place] [address] Dr. Mikala Ramsay NEUT # 5.0 103/ul Normal 1.4-6.5 [facility] Comment on above: Performed By: #### C BC #### [facility] [address] [place] [address] Dr. Mikala Ramsay Neutrophils/100 WBC (Bld) 75.5 % Critically high 43.0-75.0 [facility] Comment on above: Performed By: #### C BC #### [facility] [address] [address] [address] Mikala Ramsay Platelet mean volume (Bld) [Entitic vol] 9.2 fL Critically low 9.5-13.5 [facility] Comment on above: Performed By: #### C BC #### [facility] [address] [address] [address] Mikala Ramsay PLT 286 103/ul Normal 150-450 [facility] Comment on above: Performed By: #### C BC #### [facility] [address] [address] [address] Mikala Ramsay RBC 4.81 106/ul Normal 4.20-5.40 [facility] Comment on above: Performed By: #### C BC #### [facility] [address] [place] [address] Dr. Mikala Ramsay WBC 6.7 103/ul Normal 4.0-11.0 [facility] Comment on above: Performed By: #### C BC #### [facility] [address] [place] [address] Dr. Mikala Ramsay PREG HCG QUALon 09-06-2022 , QUAL Negative Normal NEGATIVE [facility] Comment on above: Performed By: #### P REG #### [facility] [address] [place] [address] Dr. Mikala Ramsay PROF CHEM 8 (BAS METB)on Anion gap [Moles/Vol] 11.1 mmol/L Normal [facility] Comment on above: Performed By: #### B MP #### [facility] [address] [place] [address] Dr. Mikala Ramsay Calcium [Mass/Vol] 9.0 mg/dL Normal 8.5-10.1 [facility] Comment on above: Performed By: #### B MP #### [facility] [address] [place] [address] Dr. Mikala Ramsay Chloride [Moles/Vol] 106 mmol/L Normal 98-107 [facility] Comment on above: Performed By: #### B MP #### [facility] [address] [address] [address] Mikala Ramsay CO2 [Moles/Vol] 25.6 mmol/L Normal 21.0-32.0 [facility] Comment on above: Performed By: #### B MP #### [facility] [address] [address] [address] Mikala Ramsay Creatinine [Mass/Vol] 0.72 mg/dL Normal 0.55-1.02 [facility] Comment on above: Performed By: #### B MP #### [facility] [address] [address] [address] Mikala Ramsay EGFR-AF [place] >60 Normal >=60 [facility] Comment on above: Performed By: #### B MP #### [facility] [address] [place] [address] Dr. Mikala Ramsay EGFR-NON AF [place] >60 Normal >=60 [facility] Comment on above: Performed By: #### B MP #### [facility] [address] [place] [address] Dr. Mikala Ramsay Glucose [Mass/Vol] 84 mg/dL Normal 74-106 [facility] Comment on above: Performed By: #### B MP #### [facility] [address] [place] [address] Dr. Mikala Ramsay Potassium [Moles/Vol] 3.7 mmol/L Normal 3.5-5.1 [facility] Comment on above: Performed By: #### B MP #### [facility] [address] [place] [address] Dr. Mikala Ramsay Sodium [Moles/Vol] 139 mmol/L Normal 136-145 [facility] Comment on above: Performed By: #### B MP #### [facility] [address] [address] [address] Mikala Ramsay Urea nitrogen [Mass/Vol] 10.0 mg/dL Normal 6.4-19.3 [facility] Comment on above: Performed By: #### B MP #### [facility] [address] [place] [address] Dr. Mikala Ramsay Urea nitrogen/Creatinine [Mass ratio] 13.9 mg/mg Normal [facility] Comment on above: Performed By: #### B MP #### [facility] [address] [place] [address] Dr. Mikala Ramsay CBC AUTO DIFFon 08-16-2022 BASO # 0.0 103/ul Normal 0.0-0.1 [facility] Comment on above: Performed By: #### C BC #### [facility] [address] [place] [address] Dr. Mikala Ramsay Basophils/100 WBC (Bld) 0.6 % Normal 0.2-2.0 [facility] Comment on above: Performed By: #### C BC #### [facility] [address] [place] [address] Dr. Mikala Ramsay EO # 0.1 103/ul Normal 0.0-0.7 [facility] Comment on above: Performed By: #### C BC #### [facility] [address] [place] [address] Dr. Mikala Ramsay Eosinophils/100 WBC (Bld) 1.3 % Normal 0.9-7.0 [facility] Comment on above: Performed By: #### C BC #### [facility] [address] [place] [address] Dr. Mikala Ramsay Erythrocyte distribution width (RBC) [Ratio] 14.5 % Normal 11.0-15.0 [facility] Comment on above: Performed By: #### C BC #### [facility] [address] [place] [address] Dr. Mikala Ramsay Hematocrit (Bld) [Volume fraction] 37.6 % Normal 36.0-48.0 [facility] Comment on above: Performed By: #### C BC #### [facility] [address] [place] [address] Dr. Mikala Ramsay Hemoglobin (Bld) [Mass/Vol] 12.2 g/dL Normal 12.0-16.0 [facility] Comment on above: Performed By: #### C BC #### [facility] [address] [place] [address] Dr. Mikala Ramsay IG # 0.02 10e3/ul Normal 0.00-0.03 [facility] Comment on above: Performed By: #### C BC #### [facility] [address] [place] [address] Dr. Mikala Ramsay IG % 0.3 % Normal 0.0-0.5 [facility] Comment on above: Performed By: #### C BC #### [facility] [address] [place] [address] Dr. Mikala Ramsay LYMPH # 2.1 103/ul Normal 1.2-3.8 [facility] Comment on above: Performed By: #### C BC #### [facility] [address] [place] [address] Dr. Mikala Ramsay Lymphocytes/100 WBC (Bld) 33.4 % Normal 20.5-60.0 [facility] Comment on above: Performed By: #### C BC #### [facility] [address] [place] [address] Dr. Mikala Ramsay MANUAL DIFF REQ NO Normal [facility] Comment on above: Performed By: #### C BC #### [facility] [address] [place] [address] Dr. Mikala Ramsay MCH (RBC) [Entitic mass] 26.2 pg Critically low 26.7-34.0 [facility] Comment on above: Performed By: #### C BC #### [facility] [address] [place] [address] Dr. Mikala Ramsay MCHC (RBC) [Mass/Vol] 32.4 g/dL Normal 29.9-35.2 [facility] Comment on above: Performed By: #### C BC #### [facility] [address] [place] [address] Dr. Mikala Ramsay MCV (RBC) [Entitic vol] 80.7 fL Critically low 81.0-99.0 [facility] Comment on above: Performed By: #### C BC #### [facility] [address] [place] [address] Dr. Mikala Ramsay MONO # 0.4 103/ul Normal 0.3-0.8 [facility] Comment on above: Performed By: #### C BC #### [facility] [address] [place] [address] Dr. Mikala Ramsay Monocytes/100 WBC (Bld) 6.2 % Normal 1.7-12.0 [facility] Comment on above: Performed By: #### C BC #### [facility] [address] [place] [address] Dr. Mikala Ramsay NEUT # 3.7 103/ul Normal 1.4-6.5 [facility] Comment on above: Performed By: #### C BC #### [facility] [address] [place] [address] Dr. Mikala Ramsay Neutrophils/100 WBC (Bld) 58.2 % Normal 43.0-75.0 [facility] Comment on above: Performed By: #### C BC #### [facility] [address] [place] [address] Dr. Mikala Ramsay Platelet mean volume (Bld) [Entitic vol] 9.3 fL Critically low 9.5-13.5 [facility] Comment on above: Performed By: #### C BC #### [facility] [address] [place] [address] Dr. Mikala Ramsay PLT 310 103/ul Normal 150-450 [facility] Comment on above: Performed By: #### C BC #### [facility] [address] [place] [address] Dr. Mikala Ramsay RBC 4.66 106/ul Normal 4.20-5.40 [facility] Comment on above: Performed By: #### C BC #### [facility] [address] [place] [address] Dr. Mikala Ramsay WBC 6.3 103/ul Normal 4.0-11.0 [facility] Comment on above: Performed By: #### C BC #### [facility] [address] [place] [address] Dr. Mikala Ramsay XR elbow LT min 3V*on 2021 XR elbow LT min 3V* [facility] [employer] Other XR elbow LT min 3V* [facility] [employer] Other XR elbow LT min 3V* [facility] [employer] Other XR elbow LT min 3V* ROLANDO Arevalo [address] [place] [employer] Other XR elbow LT min 3V* XRay Report [place] [employer] Other XR elbow LT min 3V* Signed [employer] Other XR elbow LT min 3V* Patient: Shilpi Millard MR#: [id number] [facility] [employer] Other XR elbow LT min 3V* : 2005 Acct:[id number] [place] [employer] Other XR elbow LT min 3V* Age/Sex: 16 / F ADM Date: 01/10/22 [employer] Other XR elbow LT min 3V* Loc: XDUCLY Room: Type: [facility] [employer] Other XR elbow LT min 3V* Attending Dr: Lynette Flores [facility] [employer] Other XR elbow LT min 3V* Ordering Provider: LYNETTE FLORES [facility] [employer] Other XR elbow LT min 3V* Date of Service: 01/10/22 [employer] Other XR elbow LT min 3V* XR/XR elbow LT min 3V*: Injury of left elbow, initial encounter [employer] Other XR elbow LT min 3V* Copies to: LYNETTE FLORES [facility] [employer] Other XR elbow LT min 3V* XR elbow LT min 3V* 01/10/2022 10:51 AM [employer] Other XR elbow LT min 3V* SIGNS AND SYMPTOMS: Injury of left elbow, left elbow pain [employer] Other XR elbow LT min 3V* PROTOCOL: Frontal, lateral, and oblique radiographs of the left elbow [employer] Other XR elbow LT min 3V* COMPARISON: None [employer] Other XR elbow LT min 3V* FINDINGS: [employer] Other XR elbow LT min 3V* There is no fracture or dislocation. No joint effusion. No soft tissue swelling. The joint spaces [employer] Other XR elbow LT min 3V* are preserved. N [facility] [employer] Other XR elbow LT min 3V* XR/XR elbow LT min 3V* [employer] Other XR elbow LT min 3V* IMPRESSION: [employer] Other XR elbow LT min 3V* No acute bony injury. [employer] Other XR elbow LT min 3V* Impression dictated by: Johnson Grijalva M.D.01/10/2022 11:26 AM [employer] Other XR elbow LT min 3V* Dictation Location: [facility]13 [employer] Other XR elbow LT min 3V* Transcribed By: YESSY 01/10/22 1126 [employer] Other XR elbow LT min 3V* Dictated By: Johnson Grijalva II, MD 01/10/22 1125 [employer] Other XR elbow LT min 3V* Signed By: [employer] Other XR elbow LT min 3V* 01/10/22 1126 No rt [employer] Other [employer] 11-03-2021 S. pyogenes Org specific cx Ql (Throat) Negative [facility] [employer] Other [employer] [facility] [employer] Other Vital Signs Date Time Vital Sign Value Performing Clinician Facility 04-30-2025 13:40-0400 Body mass index (BMI) [Ratio] 26.91 kg/m2 El Nupur DO Work Phone: [facility] 04-30-2025 13:40-0400 Body weight 71.12 kg El Nupur DO Work Phone: [facility] 04-30-2025 13:40-0400 Diastolic blood pressure 72 mm[Hg] El Nupur DO Work Phone: [facility] 04-30-2025 13:40-0400 Systolic blood pressure 120 mm[Hg] El Nupur DO Work Phone: [facility] 04-15-2025 13:42-0400 Body mass index (BMI) [Ratio] 26.16 kg/m2 El Nupur DO Work Phone: [facility] 04-15-2025 13:42-0400 Body weight 69.13 kg El Nupur DO Work Phone: [facility] 04-15-2025 13:42-0400 Diastolic blood pressure 68 mm[Hg] El Nupur DO Work Phone: [facility] 04-15-2025 13:42-0400 Systolic blood pressure 100 mm[Hg] El Nupur DO Work Phone: [facility] 04-08-2025 11:15-0400 Body mass index (BMI) [Ratio] 26.02 kg/m2 Nhung LAUREANO Work Phone: [facility] 04-08-2025 11:15-0400 Body weight 68.77 kg Nhung LAUREANO Work Phone: [facility] 04-08-2025 11:15-0400 Diastolic blood pressure 70 mm[Hg] Nhung LAUREANO Work Phone: [facility] 04-08-2025 11:15-0400 Systolic blood pressure 102 mm[Hg] Nhung LAUREANO Work Phone: [facility] 03-27-2025 14:21-0400 Body weight 66.13 kg Bakari Howell MD Work Phone: [facility] 03-27-2025 14:21-0400 Diastolic blood pressure 64 mm[Hg] Bakari Howell MD Work Phone: [facility] 03-27-2025 14:21-0400 Systolic blood pressure 98 mm[Hg] Bakari Howell MD Work Phone: [facility] 03-20-2025 10:25-0400 Body mass index (BMI) [Ratio] 25.03 kg/m2 El Nupur DO Work Phone: [facility] 03-20-2025 10:25-0400 Body weight 66.13 kg El Nupur DO Work Phone: [facility] 03-20-2025 10:25-0400 Diastolic blood pressure 74 mm[Hg] El Nupur DO Work Phone: [facility] 03-20-2025 10:25-0400 Systolic blood pressure 104 mm[Hg] El Nupur DO Work Phone: [facility] 03-06-2025 10:47-0400 Body mass index (BMI) [Ratio] 23.95 kg/m2 El Nupur DO Work Phone: [facility] 03-06-2025 10:47-0400 Body weight 63.28 kg El Nupur DO Work Phone: [facility] 03-06-2025 10:47-0400 Diastolic blood pressure 76 mm[Hg] El Nupur DO Work Phone: [facility] 03-06-2025 10:47-0400 Systolic blood pressure 102 mm[Hg] El Nupur DO Work Phone: [facility] 02-20-2025 10:58-0400 Body mass index (BMI) [Ratio] 23.34 kg/m2 Nhung Ybarra PA Work Phone: [facility] 02-20-2025 10:58-0400 Body weight 61.69 kg Nhung Juan Diego PA Work Phone: [facility] 02-20-2025 10:58-0400 Diastolic blood pressure 68 mm[Hg] Nhung Ybarra PA Work Phone: [facility] 02-20-2025 10:58-0400 Systolic blood pressure 100 mm[Hg] Nhung Ybarra PA Work Phone: [facility] 01-23-2025 10:47-0500 Body mass index (BMI) [Ratio] 22.66 kg/m2 El Nupur DO Work Phone: [facility] 01-23-2025 10:47-0500 Body weight 59.88 kg El Nupur DO Work Phone: [facility] 01-23-2025 10:47-0500 Diastolic blood pressure 68 mm[Hg] El Nupur DO Work Phone: [facility] 01-23-2025 10:47-0500 Systolic blood pressure 120 mm[Hg] El Nupur DO Work Phone: [facility] 12-30-2024 14:44-0500 Body mass index (BMI) [Ratio] 21.63 kg/m2 El Nupur DO Work Phone: [facility] 12-30-2024 14:44-0500 Body weight 57.15 kg El Nupur DO Work Phone: [facility] 12-30-2024 14:44-0500 Diastolic blood pressure 66 mm[Hg] El Nupur DO Work Phone: [facility] 12-30-2024 14:44-0500 Systolic blood pressure 100 mm[Hg] El Nupur DO Work Phone: [facility] 10-25-2024 11:17-0500 Body mass index (BMI) [Ratio] 20.08 kg/m2 [facility] Nurse [facility] 10-25-2024 11:17-0500 Body weight 53.07 kg [facility] Nurse [facility] 10-25-2024 11:17-0500 Diastolic blood pressure 68 mm[Hg] [facility] Nurse [facility] 10-25-2024 11:17-0500 Systolic blood pressure 102 mm[Hg] [facility] Nurse [facility] 07-23-2024 09:34-0400 Body mass index (BMI) [Ratio] 20.08 kg/m2 El Nupur DO Work Phone: [facility] 07-23-2024 09:34-0400 Body weight 53.07 kg El Nupur DO Work Phone: [facility] 07-23-2024 09:34-0400 Diastolic blood pressure 68 mm[Hg] El Nupur DO Work Phone: [facility] 07-23-2024 09:34-0400 Systolic blood pressure 104 mm[Hg] El Nupur DO Work Phone: [facility] 04-18-2024 14:41-0400 Body height 162.56 cm TRINITY Almendarez Work Phone: [facility] 04-18-2024 14:41-0400 Body mass index (BMI) [Ratio] 20.8 kg/m2 TRINITY Almendarez Work Phone: [facility] 04-18-2024 14:41-0400 Body temperature 98.8 [degF] TRINITY Almendarez Work Phone: [facility] 04-18-2024 14:41-0400 Body weight 54.99 kg TRINITY Almendarez Work Phone: [facility] 04-18-2024 14:41-0400 Heart rate 67 /min TRINITY Almendarez Work Phone: [facility] 04-18-2024 14:41-0400 Respiratory rate 18 /min TRINITY Almendarez Work Phone: [facility] 04-18-2024 14:41-0400 SaO2% (BldA) [Mass fraction] 98 % TRINITY Almendarez Work Phone: [facility] 01-11-2023 17:10-0500 Body height 163.83 cm Lynette Flores Other [employer] Other 01-11-2023 17:10-0500 Body mass index (BMI) [Ratio] 19.94 kg/m2 Lynette Batesault Other [employer] Other 01-11-2023 17:10-0500 Body temperature 98.2 [degF] Lynette Flores Other [employer] Other 01-11-2023 17:10-0500 Body weight 53.52 kg Lynette Flores Other [employer] Other 01-11-2023 17:10-0500 Respiratory rate 18 /min Lynette Flores Other [employer] Other 01-11-2023 17:10-0500 SaO2% (BldA) [Mass fraction] 99 % Lynette Batesault Other [employer] Other 12-13-2022 16:30-0500 Body height 162.56 cm Lanny Nieves Other [employer] Other 12-13-2022 16:30-0500 Body mass index (BMI) [Ratio] 20.25 kg/m2 Lanny Nieves Other [employer] Other 12-13-2022 16:30-0500 Body temperature 97.2 [degF] Lanny Nieves Other [employer] Other 12-13-2022 16:30-0500 Body weight 53.52 kg Lanny Nieves Other [employer] Other 12-13-2022 16:30-0500 Respiratory rate 18 /min Lanny Nieves Other [employer] Other 12-13-2022 16:30-0500 SaO2% (BldA) [Mass fraction] 99 % Lanny Nieves Other [employer] Other 07-04-2022 17:25-0400 Body height 163.83 cm Lynette Conrado Other [employer] Other 07-04-2022 17:25-0400 Body mass index (BMI) [Ratio] 19.77 kg/m2 Lynette Conrado Other [employer] Other 07-04-2022 17:25-0400 Body temperature 97.8 [degF] Lynette Conrado Other [employer] Other 07-04-2022 17:25-0400 Body weight 53.07 kg Lynette Conrado Other [employer] Other 07-04-2022 17:25-0400 Diastolic blood pressure 65 mm[Hg] Lynette Conrado Other [employer] Other 07-04-2022 17:25-0400 Respiratory rate 18 /min Lynette Conrado Other [employer] Other 07-04-2022 17:25-0400 SaO2% (BldA) [Mass fraction] 100 % Lynette Flores Other [facility] [employer] Other 07-04-2022 17:25-0400 Systolic blood pressure 110 mm[Hg] Lynette Flores Other [employer] Other 03-16-2022 14:01-0400 Blood Pressure Location Iker [facility] [place] 03-16-2022 14:01-0400 Body temperature 97.7 [degF] Iker [facility] [place] 03-16-2022 14:01-0400 Diastolic blood pressure 68 mm[Hg] Iker [facility] [place] 03-16-2022 14:01-0400 Heart rate 76 /min [facility] [place] 03-16-2022 14:01-0400 Respiratory rate 18 /min [facility] [place] 03-16-2022 14:01-0400 SaO2% (BldA) [Mass fraction] 98 % I[facility] [place] 03-16-2022 14:01-0400 Systolic blood pressure 120 mm[Hg] Iker [facility] [place] 03-02-2022 14:34-0400 Blood Pressure Location Iker [facility] [place] 03-02-2022 14:34-0400 Body temperature 98.24 [degF] Iker [facility] [place] 03-02-2022 14:34-0400 Diastolic blood pressure 60 mm[Hg] Iker [facility] [place] 03-02-2022 14:34-0400 Heart rate 76 /min [facility] [place] 03-02-2022 14:34-0400 Respiratory rate 18 /min [facility] [place] 03-02-2022 14:34-0400 SaO2% (BldA) [Mass fraction] 98 % Iker [facility] [place] 03-02-2022 14:34-0400 Systolic blood pressure 118 mm[Hg] Iker [facility] [place] 02-25-2022 10:15-0400 Body height 163.83 cm Maddie Dickson Other [employer] Other 02-25-2022 10:15-0400 Body mass index (BMI) [Ratio] 19.26 kg/m2 Maddie Dickson Other [employer] Other 02-25-2022 10:15-0400 Body temperature 97.1 [degF] Maddie Dickson Other [employer] Other 02-25-2022 10:15-0400 Body weight 51.71 kg Maddie Dickson Other [employer] Other 02-25-2022 10:15-0400 SaO2% (BldA) [Mass fraction] 99 % Maddie Dickson Other [employer] Other 02-22-2022 13:23-0400 Blood Pressure Location Marli [facility] [place] 02-22-2022 13:23-0400 Body temperature 97.34 [degF] Marli [facility] [place] 02-22-2022 13:23-0400 Diastolic blood pressure 70 mm[Hg] Mar[facility] [place] 02-22-2022 13:23-0400 Heart rate 80 /min [facility] [place] 02-22-2022 13:23-0400 Respiratory rate 16 /min [facility] [place] 02-22-2022 13:23-0400 SaO2% (BldA) [Mass fraction] 98 % Mar[facility] [place] 02-22-2022 13:23-0400 Systolic blood pressure 118 mm[Hg] Marli [facility] [place] 01-10-2022 11:30-0500 Body height 162.56 cm Lynette Flores Other [employer] Other 01-10-2022 11:30-0500 Body mass index (BMI) [Ratio] 21.45 kg/m2 Lynette Flores Other [employer] Other 01-10-2022 11:30-0500 Body temperature 96.9 [degF] Lynette Flores Other [employer] Other 01-10-2022 11:30-0500 Body weight 56.7 kg Lynette Flores Other [employer] Other 01-10-2022 11:30-0500 Diastolic blood pressure 69 mm[Hg] Lynette Flores Other [employer] Other 01-10-2022 11:30-0500 Respiratory rate 18 /min Lynette Flores Other [employer] Other 01-10-2022 11:30-0500 SaO2% (BldA) [Mass fraction] 99 % Lynette Flores Other [employer] Other 01-10-2022 11:30-0500 Systolic blood pressure 121 mm[Hg] Lynette Flores Other [employer] Other 11-03-2021 17:45-0500 Body height 162.56 cm Maddie Dickson Other [employer] Other 11-03-2021 17:45-0500 Body mass index (BMI) [Ratio] 21.8 kg/m2 Maddie Dickson Other [employer] Other 11-03-2021 17:45-0500 Body temperature 97.8 [degF] Maddie Dickson Other [employer] Other 11-03-2021 17:45-0500 Body weight 57.61 kg Maddie Dickson Other [employer] Other 11-03-2021 17:45-0500 Respiratory rate 18 /min Maddie Dickson Other [employer] Other 11-03-2021 17:45-0500 SaO2% (BldA) [Mass fraction] 99 % Maddie Dickson Other [employer] Other Encounters Encounter Date Encounter Type Care Provider Facility Start: 04-30-2025 End: 04-30-2025 Bamboo flowsheet El Nupur DO Work Phone: [facility] Start: 04-30-2025 End: 04-30-2025 Bamboo flowsheet El Nupur DO Work Phone: [facility] Start: 04-30-2025 End: 04-30-2025 flow sheet El Nupur DO Work Phone: [facility] Comment on above: 37 weeks gestation o f ; Third trimester Start: 04-22-2025 End: 04-22-2025 ambulatory NHUNG YBARRA Not Available Start: 04-17-2025 End: 04-17-[address] [facility] Start: 04-15-2025 End: 04-15-2025 Bamboo flowsheet El Nupur DO Work Phone: [facility] Start: 04-15-2025 End: 04-15-2025 Bamboo flowsheet El Nupur DO Work Phone: [facility] Start: 04-15-2025 End: 04-15-2025 flow sheet El Espitia DO Work Phone: [facility] Comment on above: Third trimester preg lucy; Poor growth affecting management of mother in first trimester, single or unspecified fetus Start: 04-15-2025 End: 04-15-2025 ambulatory EL ESPITIA Not Available Start: 04-08-2025 End: 04-08-2025 Bamboo flowsheet Nhung LAUREANO Work Phone: [facility] Start: 04-08-2025 End: 04-08-2025 Bamboo flowsheet Nhung LAUREANO Work Phone: [facility] Start: 04-08-2025 End: 04-08-2025 Clinisync Result Encounter El Boudreauxo DO Work Phone: [facility] Unsolicited Start: 04-08-2025 End: 04-08-2025 flow sheet Nhung LAUREANO Work Phone: [facility] Comment on above: Third trimester preg lucy; 34 weeks gestation of Start: 04-08-2025 End: 04-08-2025 ambulatory NHUNG YBARRA Not Available Start: 04-03-[address] [facility] Start: 03-27-2025 End: 03-27-2025 Office consultation new/estab patient 60 min Bakari Howell MD Work Phone: [facility] Comment on above: SGA (small for gesta tional age), 1,000-1,249 grams (Primary Dx); Poor growth affecting management of mother in third trimester, single or unspecified fetus Start: 03-27-2025 End: 03-27-2025 ambulatory [facility] Start: 03-26-2025 End: 03-26-2025 Telephone encounter Melnia Head RN [facility] Start: 03-25-2025 End: 03-25-2025 Chart abstracting Bakari Howell MD Work Phone: [facility] Start: 03-25-2025 End: 03-25-2025 Clinisync Result Encounter El Nupur DO Work Phone: [facility] Unsolicited Start: 03-25-2025 End: 03-25-2025 Clinisync Result Encounter Le Nupur DO Work Phone: [facility] Unsolicited Start: 03-24-2025 End: 03-24-2025 Orders Only Estrellita Weinberg RN [facility] Comment on above: SGA (small [...] Start: 02-20-2025 End: 02-20-2025 flow sheet Nhung Ybarra PA Work Phone: [facility] Comment on above: Third trimester [...] Bamboo flowsheet El Nupur DO Work Phone: [facility] Start: 01-23-2025 End: 01-23-2025 ambulatory [...] End: 04-18-2024 ambulatory Isabella Almendarez [facility] Work Phone: Start: 04-18-2024 End: 04-18-2024 Departed Referred TRINITY Almendarez Work Phone: [facility] Work Phone: Start: 04-18-2024 End: 04-18-2024 Patient encounter procedure TRINITY Almendarez Work Phone: [facility] Work Phone: Start: 12-29-2023 ambulatory Facility:[facility] Start: 01-11-2023 End: 01-11-2023 ambulatory Lynette Flores Other [employer] Other Start: 01-11-2023 Office outpatient vi sit 25 minutes Lynettemarquez Flores [facility] Start: 12-13-2022 End: 12-13-2022 ambulatory Lanny Nieves Other [employer] Other Start: 12-13-2022 Office outpatient vi sit 15 minutes Lanny Nieves [facility] Start: 11-25-2022 End: 11-25-2022 ambulatory NONE LISTED REQUEST Facility:[facility] Start: 11-03-2022 End: 11-03-2022 ambulatory NONE LISTED REQUEST Facility:[facility] Start: 09-06-2022 End: 09-06-[address] GREG BO . Facility:[facility] Start: 08-18-2022 End: 08-18-2022 ambulatory MD Iker Olivas Work Phone: [facility] Work Phone: Start: 08-18-2022 End: 08-18-2022 Departed Referred MD Iker Olivas Work Phone: [facility] Start: 08-16-2022 End: 08-17-[address] DOCTOR BERRY Facility:[facility] Start: 07-04-2022 End: 07-04-2022 ambulatory Lynette Flores Other [employer] Other Start: 07-04-2022 Office outpatient vi sit 15 minutes Lynette Conrado [facility] Start: 05-05-2022 End: 05-05-2022 ambulatory IKER OLIVAS [facility] Start: 03-16-2022 End: 03-16-2022 Patient encounter procedure Iker OLIVAS [facility] Start: 03-02-2022 End: 03-02-2022 Patient encounter procedure Iker OLIVAS [facility] Start: 02-25-2022 End: 02-25-2022 ambulatory Maddie Dickson Other [employer] Other Start: 02-25-2022 Office outpatient vi sit 25 minutes Maddie Yessi [facility] Start: 02-22-2022 End: 02-22-2022 Patient encounter procedure Marli KLAUS [facility] Start: 01-10-2022 End: 01-10-2022 ambulatory Lynettemarquez Flores Other [employer] Other Start: 01-10-2022 Office outpatient vi sit 15 minutes Lynette Conrado [facility] Start: 11-03-2021 End: 11-03-2021 ambulatory Maddie Yessi Other [employer] Other Start: 11-03-2021 Office outpatient vi sit 15 minutes Maddie Yessi [facility] Procedures Date Procedure Procedure Detail Performing Clinician Start: 04-30-2025 Urnls dip stick/tabl et rgnt non-auto w/o micrscp El Nupur DO Work Phone: Start: 04-08-2025 US OB BPP W NON-STRESS [...] Work Phone: Start: 02-13-2025 TBH UA (CLEAN/CATCH) STRAIGHTENER AND ALIGNER/MICRO IF IND. El Nupur DO Work Phone: [...] Td Vaccines (7 - Td or Tdap) [facility] Start: 03-27-2026 Tobacco Screening Tobacco Screening [facility] Start: 07-21-2025 Influenza vaccination [facility] Start: 04-30-2025 End: 04-30-2025 Patient encounter procedure 04/30/2025 1:40 PM EDT Routine [facility] [address] [place] [address] NupurEl lance, DO [address] [place] [address] Arrived [facility] Comment on above: Arrived Start: 04-24-2025 End: 03-24-2026 US MFM with or without consult US MFM with or without consult Imaging Routine SGA (small for gestational age) Expected: 04/24/2025 (Approximate), Expires: 03/24/2026 [facility] Work Phone: Comment on above: Expected: 04/24/2025 (Approximate), Expires: 03/24/2026 Start: 04-22-2025 End: 04-22-2025 Patient encounter procedure 04/22/2025 1:50 PM EDT Routine [facility] [address] [place] [address] Nhung Ybarra PA [address] [place] [address] [place] [address] [facility] Start: 04-17-2025 End: 04-17-2025 Patient encounter procedure 04/17/2025 3:15 PM EDT Appointment [facility] [address] [place] [address] [facility] Start: 04-15-2025 End: 04-15-2026 CULTURE, GROUP B [...] EDT Telemedicine [facility] [address] [place] [address] Bakari Howell MD [address] [place] [address] [facility] Start: 03-27-2025 End: 03-27-2025 Patient encounter procedure 03/27/2025 1:00 PM EDT Appointment [facility] [address] [facility] [address] [place] [address] [facility] Start: 03-20-2025 End: 03-20-2025 Patient encounter procedure [facility] Comment on above: Arrived Start: 03-20-2025 End: 03-20-2025 Professional / ancillary services management 03/20/2025 9:30 AM EDT Ancillary Procedure [facility] [address] [place] [id number] [facility] Start: 2025 Screening for malign ant neoplasm of cervix Pap Smear [facility] Start: 03-06-2025 End: 03-06-2025 Patient encounter procedure 03/06/2025 10:40 AM EDT Routine [facility] [address] [place] [id number] El Espitia, DO [address] [place] [address] [facility] Start: 03-06-2025 End: 03-06-2025 Professional / ancillary services management 03/06/2025 10:00 AM EDT Ancillary Procedure [facility] [address] [place] [address] [facility] Start: 02-20-2025 End: 02-20-2026 US for US OB limited 1+ fetuses Imaging Routine Encounter for follow-up ultrasound of anatomy Expected: 02/20/2025 (Approximate), [facility]: Expected: 02/20/2025 (Approximate), Expires: 02/20/2026 Start: 02-20-2025 End: 02-20-2025 Patient encounter procedure 02/20/2025 10:20 AM EDT Routine [facility] [address] [place] [id number] Nhung Ybarra PA [address] [place] [address] [facility] Start: 01-23-2025 End: 01-23-2026 CBC panel - Blood by Automated count CBC Lab Routine Diabetes mellitus screening Expected: 01/23/2025 (Approximate), Expires: 01/23/2026 [facility] Work Phone: Comment on above: Expected: 01/23/2025 (Approximate), Expires: 01/23/2026 Start: 01-23-2025 End: 01-23-2026 Measurement of glucose 1 hour after glucose challenge for glucose tolerance test Glucose tolerance, 1 hour Lab Routine Diabetes mellitus screening Expected: 01/23/2025 (Approximate), Expires: 01/23/2026 [facility] Comment on above: Expected: 01/23/2025 (Approximate), Expires: 01/23/2026 Start: 01-23-2025 End: 01-23-2025 Patient encounter procedure 01/23/2025 10:20 AM EST Routine [facility] [address] [facility] [place] [id number] El Espitia, DO [address] [place], [place] [address]Jos[place], [place] [address] [facility] Start: 12-30-2024 End: 12-30-2025 12 lead ECG ECG 12 lead unit performed ECG Routine Near syncope Lightheadedness Expected: 12/30/2024 (Approximate), Expires: 12/30/2025 [facility] Comment on above: Expected: 12/30/2024 (Approximate), Expires: 12/30/2025 Start: 12-30-2024 End: 12-30-2026 Echocardiogram 2D complete Echocardiogram 2D complete Echocardiography Routine Near syncope Lightheadedness Expected: 12/30/2024 (Approximate), Expires: 12/30/2026 [facility] Comment on above: Expected: 12/30/2024 (Approximate), Expires: 12/30/2026 Start: 12-30-2024 End: 12-30-2024 Patient encounter procedure 12/30/2024 11:30 AM EST Routine [facility] [address] [facility] [place] [id number] El Espitia, DO [address] [place], [place] [id number] [facility] Start: 12-30-2024 End: 12-30-2024 Professional / ancillary services management 12/30/2024 10:30 AM EST Ancillary Procedure [facility] [address] [facility] [place] [id number] [facility] Start: 11-26-2024 End: 01-24-2025 [...] AM EST Routine [facility] [address] [facility] [place] [phone] El Espitia, DO [address] [place] [address] Dr Zaira [place] [address] [facility] Start: 10-25-2024 End: 10-25-2025 ABO/Rh ABO/Rh Lab Routine Missed menses , unspecified gestational age Expected: 10/25/2024 (Approximate), Expires: 10/25/2025 [facility] Comment on above: Expected: 10/25/2024 (Approximate), Expires: 10/25/2025 Start: 10-25-2024 End: 10-25-2025 Blood type and Indirect antibody screen panel - Blood Type and screen Lab Routine Missed menses , unspecified gestational age Expected: 10/25/2024 (Approximate), Expires: 10/25/2025 [facility] Work Phone: Comment on above: Expected: 10/25/2024 (Approximate), Expires: 10/25/2025 Start: 10-25-2024 End: 10-25-2025 Drugs of abuse panel - Urine by Screen method Rapid drug screen, urine Lab Routine , unspecified gestational age Encounter for supervision of normal first in first trimester Expected: 10/25/2024 (Approximate), Expires: 10/25/2025 [facility] Comment on above: Expected: 10/25/2024 (Approximate), Expires: 10/25/2025 Start: 10-25-2024 End: 10-25-2025 US Pelvis transvaginal US OB transvaginal Imaging Routine Missed menses Expected: 10/25/2024 (Approximate), Expires: 10/25/2025 [facility] Comment on above: Expected: 10/25/2024 (Approximate), Expires: 10/25/2025 Start: 07-23-2024 End: 07-23-2025 Antimullerian hormone (AMH) Antimullerian hormone (AMH) Lab Routine Encounter for infertility PCOS (polycystic ovarian syndrome) Expected: 07/23/2024 (Approximate), Expires: 07/23/2025 [facility] Comment on above: Expected: 07/23/2024 (Approximate), Expires: 07/23/2025 Start: 07-23-2024 End: 07-23-2025 DHEA DHEA Lab Routine PCOS (polycystic ovarian syndrome) Expected: 07/23/2024 (Approximate), Expires: 07/23/2025 [facility] Comment on above: Expected: 07/23/2024 (Approximate), Expires: 07/23/2025 Start: 07-23-2024 End: 07-23-2025 US for US PELVIS-TRANSVAG IF INDICATED Imaging Routine PCOS (polycystic ovarian syndrome) Expected: 07/23/2024 (Approximate), Expires: 07/23/2025 [facility] Comment on above: Expected: 07/23/2024 (Approximate), Expires: 07/23/2025 Start: 07-21-2024 COVID-19 Vaccine () COVID-19 Vaccine () [facility] Start: 07-21-2024 Influenza vaccination Influenza Vacc ine (#1) [facility] Start: 04-19-2024 Bacteria identified in Urine by Culture [facility] Start: 04-18-2024 Bacteria identified in Urine by Culture [facility] Start: 2023 DTaP,Tdap and Td Vaccines (1 - Tdap) DTaP,Tdap and Td Vaccines (1 - Tdap) [facility] Start: 2022 Adult BMI Screening Adult BMI Screen ing [facility] Start: 2016 Depression Screening Depression Scre ening [facility] Start: 2016 Tobacco Screening Tobacco Screening [facility] Start: 2004 Screening for Chlamy kiera trachomatis Chlamydia Screening [facility] Bacteria identified in Urine by Culture Urine culture Microbiology Routine Missed menses Ordered: 10/25/2024 [facility] Comment on above: Ordered: 10/25/2024 Bacteria identified in Urine by Culture Urine culture Microbiology Routine UTI symptoms Ordered: 12/30/2024 [facility] Work Phone: Comment on above: Ordered: 12/30/2024 CBC W Auto Different ial panel - Blood CBC and differential Lab Routine PCOS (polycystic ovarian syndrome) Ordered: 07/23/2024 [facility] Comment on above: Ordered: 07/23/2024 CBC W Auto Different ial panel - Blood CBC and differential Lab Routine Missed menses , unspecified gestational age Ordered: 10/25/2024 [facility] Comment on above: Ordered: 10/25/2024 CBC W Auto Different ial panel - Blood CBC and differential Lab Routine Near syncope Lightheadedness Ordered: 12/30/2024 [facility] Comment on above: Ordered: 12/30/2024 CHLAMYDIA TRACHOMATI S (GENITO/STI) CHLAMYDIA TRACHOMATIS (GENITO/STI) Lab Routine Screen for STD (sexually transmitted disease) Ordered: 02/20/2025 [facility] Comment on above: Ordered: 02/20/2025 CHLAMYDIA TRACHOMATI S (GENITO/STI) CHLAMYDIA TRACHOMATIS (GENITO/STI) Lab Routine Vaginal discharge Ordered: 03/06/2025 [facility] Comment on above: Ordered: 03/06/2025 DHEA-sulfate DHEA-sulfate Lab Routine PCOS (polycystic ovarian syndrome) Ordered: 07/23/2024 [facility] Comment on above: Ordered: 07/23/2024 Estradiol Estradiol Lab Ro utine Encounter for infertility PCOS (polycystic ovarian syndrome) Ordered: 07/23/2024 [facility] Comment on above: Ordered: 07/23/2024 Follicle stimulating hormone Follicle stimulating hormone Lab Routine PCOS (polycystic ovarian syndrome) Ordered: 07/23/2024 [facility] Comment on above: Ordered: 07/23/2024 hCG, quantitative, hCG, quantitative, Lab Routine PCOS (polycystic ovarian syndrome) Ordered: 07/23/2024 [facility] Work Phone: Comment on above: Ordered: 07/23/2024 Hemoglobin A1c/Hemoglobin.total in Blood Hemoglobin A1c Lab Routine Encounter for infertility PCOS (polycystic ovarian syndrome) Ordered: 07/23/2024 [facility] Comment on above: Ordered: 07/23/2024 Hemoglobin A1c/Hemoglobin.total in Blood Hemoglobin A1c Lab Routine Missed menses , unspecified gestational age Ordered: 10/25/2024 [facility] Comment on above: Ordered: 10/25/2024 Hepatitis B virus surface Ag [Presence] in Serum or Plasma by Immunoassay Hepatitis B surface antigen Lab Routine Missed menses , unspecified gestational age Ordered: 10/25/2024 [facility] Comment on above: Ordered: 10/25/2024 Hepatitis C virus Ab [Presence] in Serum or Plasma by Immunoassay Hepatitis C antibody Lab Routine Missed menses , unspecified gestational age Ordered: 10/25/2024 [facility] Comment on above: Ordered: 10/25/2024 HIV-1/HIV-2 antigen/antibody combination immunoassay HIV-1 and HIV-2 antibodies Lab Routine Missed menses , unspecified gestational age Ordered: 10/25/2024 [facility] Comment on above: Ordered: 10/25/2024 Luteinizing hormone Luteinizing hormone Lab Routine PCOS (polycystic ovarian syndrome) Ordered: 07/23/2024 [facility] Comment on above: Ordered: 07/23/2024 Neisseria gonorrhoea e DNA [Presence] in Unspecified specimen by YUNG with probe detection Neisseria gonorrhea DNA probe, direct Lab Routine Screen for STD (sexually transmitted disease) Ordered: 02/20/2025 [facility] Comment on above: Ordered: 02/20/2025 Neisseria gonorrhoea e DNA [Presence] in Unspecified specimen by YUNG with probe detection Neisseria gonorrhea DNA probe, direct Lab Routine Vaginal discharge Ordered: 03/06/2025 [facility] Comment on above: Ordered: 03/06/2025 Progesterone Progesterone Lab Routine Encounter for infertility PCOS (polycystic ovarian syndrome) Ordered: 07/23/2024 [facility] Comment on above: Ordered: 07/23/2024 Reagin Ab [Presence] in Serum by RPR RPR Lab Routine Missed menses , unspecified gestational age Ordered: 10/25/2024 [facility] Comment on above: Ordered: 10/25/2024 Rubella antibody, IgG Rubella an tibody, IgG Lab Routine Missed menses , unspecified gestational age Ordered: 10/25/2024 [facility] Comment on above: Ordered: 10/25/2024 SURESWAB(R) ADVANCED VAGINITIS PLUS, TMA SURESWAB(R) ADVANCED VAGINITIS PLUS, TMA Pathology and Cytology Routine Screen for STD (sexually transmitted disease) Ordered: 02/20/2025 [facility] Work Phone: Comment on above: Ordered: 02/20/2025 SURESWAB(R) ADVANCED VAGINITIS PLUS, TMA SURESWAB(R) ADVANCED VAGINITIS PLUS, TMA Pathology and Cytology Routine Vaginal discharge Ordered: 03/06/2025 [facility] Work Phone: Comment on above: Ordered: 03/06/2025 Thyrotropin [Units/volume] in Serum or Plasma TSH Lab Routine PCOS (polycystic ovarian syndrome) Ordered: 07/23/2024 [facility] Comment on above: Ordered: 07/23/2024 Thyrotropin [Units/volume] in Serum or Plasma TSH Lab Routine Near syncope Lightheadedness Ordered: 12/30/2024 [facility] Comment on above: Ordered: 12/30/2024 Thyroxine (T4) free [Mass/volume] in Serum or Plasma T4, free Lab Routine PCOS (polycystic ovarian syndrome) Ordered: 07/23/2024 [facility] Comment on above: Ordered: 07/23/2024 Immunizations Immunization Date Immunization Notes Care Provider Gulshan nunes 12-10-2020 hepatitis A vaccine, pediatric/adolescent dosage, 2 dose [address] [facility] 12-10-2020 meningococcal polysaccharide (groups A, C, Y and W-135) diphtheria toxoid conjugate vaccine (MCV4P) Marli Rosenberg [facility] 09-01-2016 meningococcal ACWY vaccine, unspecified formulation Marli Rosenberg [facility] 09-01-2016 tetanus toxoid, redu matthieu diphtheria toxoid, and acellular pertussis vaccine, adsorbed Marli Olds [facility] 12-10-2013 influenza virus vacc ine, unspecified formulation Marli Rosenberg [facility] 12-11-2008 influenza virus vacc ine, unspecified formulation Marli Rosenberg [facility] 05-01-2008 diphtheria, tetanus toxoids and acellular pertussis vaccine Marli Rosenberg [facility] 05-01-2008 hepatitis B vaccine, adult dosage Marli Rosenberg [facility] 05-01-2008 measles, mumps and rubella virus vaccine Marli Rosenberg [facility] 05-01-2008 poliovirus vaccine, unspecified formulation Marli Rosenberg [facility] 05-01-2008 varicella virus vaccine Brittney Rosenberg [facility] [place] 03-16-2005 diphtheria, tetanus toxoids and acellular pertussis vaccine Marli Rosenberg [facility] [place] 03-16-2005 haemophilus influenz ae type b vaccine, HbOC conjugate Marli Rosenberg [facility] 03-16-2005 measles, mumps and rubella virus vaccine Marli Rosenberg [facility] 03-16-2005 pneumococcal conjuga te vaccine, [address] [facility] [place] 03-16-2005 varicella virus vaccine Brittney Rosenberg [facility] 2004 influenza virus vacc ine, unspecified formulation Marli Rosenberg [facility] 2004 diphtheria, tetanus toxoids and acellular pertussis vaccine Marli Rosenberg [facility] 2004 haemophilus influenz ae type b vaccine, HbOC conjugate Marli Rosenberg [facility] 2004 hepatitis B vaccine, adult dosage Marli Rosenberg [facility] 2004 pneumococcal conjuga te vaccine, [address] [facility] 2004 poliovirus vaccine, unspecified formulation Marli Chet [facility] [place] 2004 diphtheria, tetanus toxoids and acellular pertussis vaccine Marli Chet [facility] 2004 haemophilus influenz ae type b vaccine, HbOC conjugate Marli Chet [facility] 2004 hepatitis B vaccine, adult dosage Marli [place] [facility] 2004 pneumococcal conjuga te vaccine, [address] [facility] 2004 poliovirus vaccine, unspecified formulation Marli Rosenberg [facility] 2004 diphtheria, tetanus toxoids and acellular pertussis vaccine Marli Rosenberg [facility] [place] 2004 haemophilus influenz ae type b vaccine, HbOC conjugate Marli Rosenberg [facility] [place] 2004 hepatitis B vaccine, adult dosage Marli [place] [facility] 2004 pneumococcal conjuga te vaccine, [address] [place] [facility] 2004 poliovirus vaccine, unspecified formulation Marli Rosenberg [facility] [place] Payers Date Payer Category Payer Medicaid O [employer] [id number] 2024 Self-pay [id number] 2024 Medicaid [employer] [facility] [place] [id number] 2024-Present [address] [id number] 2024 Medicaid [id number] 2013 Managed Care Other (unspecified) [id number] 2013 Private Health Insurance [id number]. [id number] 2004 Unknown [id number] 2.16.840.1.634243.3.579.2. 479 2004 Unknown [id number] 2.16.840.1.718983.3.579.2. 593 2004 Unknown [id number] 2.16.840.1.825043.3.579.2. 593 2004 Unknown [id number] 2.16.840.1.680985.3.579.2. 593 2004 Unknown [id number] 2.16.840.1.293583.3.579.2. 1286 2004 Unknown [id number] 2.16.840.1.374184.3.579.2. 1286 2004 Unknown [id number] 2.16.840.1.987214.3.579.2. 1286 2004 Unknown [id number] 2.16840.1.759747.3.579.2. 1286 2004 Unknown [id number] 2.16840.1.270308.3.579.2. 1259 2004 Unknown [id number] 2.16840.1.508138.3.579.2. 1259 2004 Unknown [id number] 2.16840.1.327414.3.579.2. 1259 2004 Unknown [id number] 2.16.840.1.501980.3.579.2. 1259 2004 Unknown [id number] 2.16840.1.963190.3.579.2. 1259 2004 Unknown [id number] 2.16840.1.201264.3.579.2. 1259 2004 Unknown [id number] 2.16.840.1.769533.3.579.2. 1259 2004 Unknown [id number] 2.16.840.1.502324.3.579.2. 1259 2004 Unknown [id number] 2.16.840.1.767920.3.579.2. 1259 2004 Unknown [id number] 2.16840.1.587632.3.579.2. 1259 2004 Unknown [id number] 2.16.840.1.058942.3.579.2. 1259 2004 Unknown [id number] 2.16.840.1.707919.3.579.2. 1259 2004 Unknown [id number] 2.16.840.1.310459.3.579.2. 9 2004 Unknown [id number] 2.16.840.1.168317.3.579.2. 1259 1984 Unknown [id number] 2.16.840.1.730562.3.579.2. 593 1959 Unknown [id number] 2.16.840.1.821257.19 1959 Unknown [id number] 2.16.840.1.834105.19 1959 Unknown [id number] 2.16.840.1.040473.19 Unknown Josephine / [id number] Unknown [id number] 2.16.840.1.495965.19 Unknown [id number] 2.16.840.1.192652.3.579.2. 531 Social History Date Type Detail Facility Start: 01-07-2022 End: 11-01-2023 Tobacco smoking status Never smoked tobacco (finding) [employer] Other Tobacco smoking status Never [facility] Start: 07-23-2024 End: 03-27-2025 Sex Assigned At Female [facility] [employer] Other Start: 2004 Sex Assigned At Female [facility] Start: 11-01-2023 End: 03-25-2025 Tobacco use and exposure Smokeless tobacco non-user [facility] Start: 07-23-2024 End: 04-30-2025 Alcoholic beverage intake Lifetime non-drinker (finding) [facility] Start: 07-23-2024 End: 03-27-2025 History of Social function [facility] Start: 11-01-2023 Alcohol Comment caffeine: pop/ tea once or twice a week [facility] Start: 07-23-2024 Gender identity Identifies as female gender (finding) [facility] Start: 08-22-2024 [facility] Tobacco smoking status NHIS Tobacco smoking consumption unknown [facility] Start: 2004 Sex assigned at Not on file [facility] Start: 03-24-2025 Sex Female (finding) [facility] Start: 03-27-2025 Alcoholic beverage intake Ex-drinker (finding) [facility] Clinical Notes 08-21-2013 to 04-30-2025 Mary Cody LPN - 04/30/2025 1:40 PM Neema Cody LPN - 04/15/2025 1:10 PM GEORGI Capps - 04/08/2025 10:50 AM Luis Head RN - 03/27/2025 2:00 PM EDT Note Date & Type Note Facility 04-30-2025 History of Presen t illness Narrative Reason for Appointment: Patient ID: Shilpi Millard is a 20 y.o. female who presents for Routine Visit Patient presents today for Return OB appointment. MEDICATIONS Current Outpatient Medications Medication Instructions Zyvefa-ZrJkjg-ZO-DHA w/o Vit A (Prena 1 True) 30-1.4 & 300 MG misc 1 tablet, Daily RT ALLERGIES Allergies Allergen Reactions Coconut [...] nursing note reviewed. Exam conducted with a supervisor print line present. Vitals: Estimated body mass index is 26.91 kg/m as calculated from the following: Height as of 11/27/23: 5' 4 . Weight as of this encounter: 156 lb 12.8 oz. BP: 120/72 Patient's last menstrual period was 07/15/2024 (approximate). ASSESSMENT & PLAN ICD-10-CM 1. 37 weeks gestation of Z3A.37 POCT urinalysis dipstick manually resulted 2. Third trimester Z34.93 POCT urinalysis dipstick manually resulted Return OB: Patient presents today for a routine obstetrics appointment. Patient is currently 37w6d . Patient states she is doing well but has complaints of being tired due to current . Patient has verbalizes frequent movement. labor precautions was discussed/given and patient was instructed to perform kick counts three times a day. Pt to be induced this evening 06/11/25 at 2100, pit at 2200 Orders Placed This Encounter Procedures POCT urinalysis dipstick manually resulted Follow Up: Patient is to return to office in 1 week for routine OB appointment. Documented by Mary Cody LPN on behalf of: El Espitia DO documented in this encounter [facility] 04-15-2025 History of Presen t illness Narrative [...] nursing note reviewed. Exam conducted with a supervisor print line present. Vitals: Estimated body mass index is [...] El Espitia DO documented in this encounter [facility] 04-08-2025 History of Presen t [...] Documented by GEORGI Presley on behalf of: GEORIG Presley documented in this encounter [facility] 03-27-2025 History of Presen t [...] testimg Have you been seen here at [facility] in a previous ? no Recent ER visits or hospitalizations? For UTI about 4 weeks ago Bring blood sugar log or meter with you today? (Please bring them with you for every visit at [facility]) Flu vaccine (Sep-January)? Any concerns that [...] and Rash CURRENT MEDICATIONS: Current Outpatient Medications: 902-rrzl-appfu ac-dha (PRENA1 TRUE) 30 mg iron- 1.4 [...] and the other consultants, we search on [employer] and all the available care everywhere epic I did review all the imaging studies of the patient available on EMR, ordered by the primary care physician and the other management consultant HABITS: Patient activity no restrictions, diet [...] 8th percentile. 2. Serial Doppler studies at [facility] office. 3. 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 Patient does have ultrasound scheduled with us. Thank you for allowing me to participate in Shilpi Freeman . If there any questions please do not hesitate to contact us. Sincerely, BAKARI HOWELL MD Video Visit via Real-time Synchronous Audiovisual Provider Location: [facility]- MEDICINE AT [address] [phone] Patient Location: [facility] office. Patient Location Script Worker: None Video Visit Consent Statement: I discussed [...] that there are some limitations compared to [id number] evaluations. We elected to proceed. documented in this encounter [facility] [employer] 03-26-2025 Miscellaneous Notes Formattin g of this note might be different from the original. Called Dr. Espitia's office regarding any NIPTS/CS testing that was done. Left message on nurse line to fax results or call office. Nurse called back and advises that patient has not had any screenings completed documented in this encounter [facility] 03-26-2025 Telephone encount er Note Called Dr. Espitia's office regarding any NIPTS/CS testing that was done. Left message on nurse line to fax results or call office. Nurse called back and advises that patient has not had any screenings completed [facility] 03-20-2025 History of Presen t illness Narrative [...] nursing note reviewed. Exam conducted with a supervisor print line present. Vitals: Estimated body mass index is [...] El Espitia DO documented in this encounter [facility] 03-06-2025 History of Presen t [...] nursing note reviewed. Exam conducted with a supervisor print line present. Vitals: Estimated body mass index is [...] El Espitia DO documented in this encounter [facility] 02-20-2025 History of Presen t [...] nursing note reviewed. Exam conducted with a supervisor print line present. Vitals: Estimated body mass index is [...] of: GEORGI Presley documented in this encounter [facility] 01-23-2025 History of Presen t [...] El Espitia DO documented in this encounter [facility] 12-30-2024 History of Presen t [...] nursing note reviewed. Exam conducted with a supervisor print line present. Vitals: Estimated body mass index is [...] ECHO and EKG will be sent to [facility] to be scheduled. Will also send orders for TSH to be drawn every 4 weeks throughout and CBC will also need to be drawn. Patients urine will be sent out for culture today with sample that was provided in office. Documented by Reyna Leal LPN on behalf of: El Espitia DO documented in this encounter [facility] 11-26-2024 History of Presen t [...] nursing note reviewed. Exam conducted with a supervisor print line present. Vitals: Estimated body mass index is [...] or undercooked meat, and stay away from [facility]. Patient has been consulted regarding any [...] El Espitia DO documented in this encounter [facility] 10-25-2024 History of Presen t [...] MA documented in this encounter [facility] 07-23-2024 History of Presen t [...] nursing note reviewed. Exam conducted with a supervisor print line present. Vitals: Estimated body mass index is [...] El Espitia DO documented in this encounter [facility] 01-11-2023 Evaluation note Encounter Date Diagnosis Assessment Notes Dec, Acute effusion of left ear (ICD-10 - H65.192) try this medication and referral sent to ENT since conservative treatment has been used by urgent care and PCP without improvement of symptoms. [employer] Other 01-24-2023 Evaluation note* Encounter Date Diagnosis [...] understanding and is agreeable to treatment plan [employer] Other 08-15-2022 Evaluation note* Encounter Date Diagnosis Assessment Notes Treatment Notes Treatment Clinical Notes Jun, Tooth infection (ICD-10 - K04.7) Take medications as directed.Highly encourage patient to contact dentist CARLY for further treatment of infection. Ok to take OTC medications like ibuprofen with prescriptions [employer] Other 06-16-2022 Chana Millard is here for consultation at the request of Iker Olivas MD for: Constipation ---History from parent and patient History of Present Illness My advice was requested by Iker Olivas MD. She is accompanied by her mother and sibling(s). No high school foreign language tutor was used. ABD pain - Patient has [...] 40mg per day Mirala (more content not included)...[facility] [facility]04-13-2022 Hospital Discharge instructions Follow Up Care 03/02/2022 15:03:01 With:Iker OLIVAS MD, PED Address: [address] [place] [address]. [place] [address]- When:03/30/2022 Comments:recheck dyspnea/chest pain [facility] [place] 04-13-2022 Hospital Discharge instructions Follow Up Care 03/02/2022 09:25:52 With:Iker OLIVAS MD, PED Address: [address] [place] [address]. [place] [address]- When:03/16/2022 Comments:recheck SOB [facility] 04-08-2022 Evaluation note* Encounter Date Diagnosis Assessment [...] 3 days. Feb, Bronchitis (ICD-10 - J40) [employer] Other 04-05-2022 Hospital Discharge instructions Follow Up Care 02/22/2022 08:51:47 With:Chet DENTON, Marli ENRIQUE Address: When: Unknown Comments:f/up in 2 months for [address]ren tomp[address] [facility] [place] 02-21-2022 Evaluation note* Encounter Date Diagnosis Assessment [...] we will help you get into specialist. [employer] Other 12-15-2021 Evaluation note* Encounter Date Diagnosis Assessment Notes Treatment Notes Treatment Clinical Notes Oct, Sore throat (ICD-10 - J02.9) Oct, Viral pharyngitis (ICD-10 - J02.9) Drink plenty of fluids, get plenty of rest. Tylenol or Motrin for aches pains or fevers. Follow-up with family physician if no improvement in 2 to 3 days for [employer] Other 10-02-2013 History general Narrative - Reported* Type Description Date Medical History eczema Medical History reactive airway Medical History Radial fracture (resolved 2012) Medical History Strep throat (resolved 1) Surgical History dental reconstruction age 1 [facility] [employer] Other 10-02-2013 History general Narrative - Reported* Type Description Date Medical History eczema Medical History reactive airway Medical History Radial fracture (resolved 2012) Medical History Strep throat (resolved 1) Surgical History dental reconstruction age 1 Surgical History Cyst Removal Left eye 08/2022 [employer] Other Evaluation + Plan note Referrals to Other Providers Referred by: Marli Rosenberg MD [facility] [place] Evaluation + Plan note Future Appointments Appointment Date:03/16/2022 02:00:00 PM Scheduled Provider:Iker OLIVAS MD Location:[facility] [place] Appointment Type:Peds OV 10 Referrals to Other Providers Referred by: Iker OLIVAS MD [facility] [place] Evaluation + Plan note Future Appointments Appointment Date:03/30/2022 08:40:00 AM Scheduled Provider:Iker OLIVAS MD Location[place] [place] Appointment Type:Peds OV 10 [facility] [place] evaluation noteNo assessment information available [facility] Work Phone: evaluation note* Diagnosis Onset Date Resolution Status Acute UTI (urinary tract infection) acute [facility] Work Phone: evaluation note* [...] Diagnosis SGA (small for gestational age)- Primary Hlepb-cqp-[id number] without mention of malnutrition, unspecified (weight) documented [...] (small for gestational age), 1,000-1,249 grams- Primary Kdlbm-[id number]-[id number] without mention of malnutrition, 1,000-1,249 grams Poor growth affecting management of mother in third trimester, single or unspecified fetus [facility] Diagnosis 37 weeks gestation of Third trimester state, incidental [facility] N[facility] No data available for this section [facility] [place] InstructionsNot on filedocumented in this encounter [facility] filed[facility]ed in this [facility] on filedocumented in this encounter [facility] Reason for Referral Reason *FU 02/02 Middle e ar effusion that is persisting Diagnosis 1 Acute effusion of le ft ear (H65.192) Referral Organization [facility] Referring Provider First Name Lynette Referring Provider Last Name Conrado Referring Provider Specialty Nurse Pract itioner Referred Organization [facility] Referred Provider Fiordaliza Aekrs Referred Address ,[place], [place],[address] Referred Provider Specialty Ear, Nose an d [...] 2024 Team Status: Inactive Member Role Status Emile Almendarez APRN Attending Provider Active Start: April 18, 2024 End: April 18, 2024 Goals (unrecognized section and content) Goals may be documented in a n alternate section INFORMATION SOURCE (unrecogn ized section and content) DATE CREATED AUTHOR 03/02/2023 [facility] DATE CREATED AUTHOR AUTHOR'S ORGANIZ ATION 03/25/2023 [facility] DATE CREATED AUTHOR AUTHOR'S ORGANIZ ATION 12/30/2023 [facility] DATE CREATED AUTHOR AUTHOR'S ORGANIZ ATION 01/10/2025 [facility] DATE CREATED AUTHOR AUTHOR'S ORGANIZ ATION 03/29/2025 [facility] DATE CREATED AUTHOR AUTHOR'S ORGANIZ ATION 04/20/2025 [facility] DATE CREATED AUTHOR AUTHOR'S ORGANIZ ATION 04/23/2025 [facility] EPIC FOR RECORDS PERTAINING TO [...] BE BASED ON THE PRIMARY CLINICAL RECORDS. [email or web address] [facility]. provides no warranty or guarantee of the accuracy or completeness of information in this document.
[2025-04-30 21:28] VITALS: BP 125/76; PULSE 116
[2025-04-30 22:26] LABS: Amphetamine Screen Urine NEGATIVE (NEGATIVE); Barbiturates Screen Urine NEGATIVE (NEGATIVE); Benzodiazepines Screen Urine NEGATIVE (NEGATIVE); Buprenorphine Screen Urine NEGATIVE (NEGATIVE); Cannabinoid Screen Urine NEGATIVE (NEGATIVE); Cocaine Screen Urine NEGATIVE (NEGATIVE); Methadone Screen Urine NEGATIVE (NEGATIVE); Methamphetamines Screen Urine NEGATIVE (NEGATIVE); Opiate Screen Urine NEGATIVE (NEGATIVE); Oxycodone Screen Urine NEGATIVE (NEGATIVE); Phencyclidine Screen Urine NEGATIVE (NEGATIVE); Tricyclic Antidepressant Urine NEGATIVE (NEGATIVE)
[2025-04-30 22:57] LABS: Hematocrit 35.5 % (36.0-48.0); Hemoglobin 12.2 g/dL (12.0-16.0); Mean Corpuscular HGB Conc 34.4 g/dL (29.9-35.2); Mean Corpuscular Hemoglobin 28.2 pg (26.7-34.0); Mean Platelet Volume 9.7 fL (9.5-13.5); Platelet Count 334 10^3/uL (150-450); Red Blood Count 4.33 10^6/uL (4.20-5.40); Red Cell Distribution Width 13.3 % (11.0-15.0); White Blood Count 12.8 10^3/uL (4.0-11.0)
[2025-04-30] MEDS: 0.9 % SODIUM CHLORIDE 1,000 ML 125 ML IV (23:00)
[2025-04-30] MEDS: OXYTOCIN/0.9 % SODIUM CHLORIDE 10 UNITS/500 ML PLAST..BAG 6 UNIT IV (23:05)
[2025-04-30 23:06] VITALS: BP 108/64; PULSE 85; TEMP 37.1
[2025-04-30 23:57] VITALS: BP 116/59; PULSE 81
[2025-05-01] VITALS (19 sets, daily range): BP systolic 91–131; BP diastolic 50–80; PULSE 60–91; TEMP 36.7
[2025-05-01] MEDS: NALBUPHINE HCL 10 MG/ML AMPULE IV (03:03)
[2025-05-01] MEDS: OXYTOCIN/0.9 % SODIUM CHLORIDE 20 UNITS/1,000 ML PLAST..BAG 125 UNIT IV (03:41)
[2025-05-01] MEDS: LIDOCAINE HCL 1% 200 MG/20 ML MDV INJ (03:43)
--- NOTE | 2025-05-01 03:49 | PM.OBPRCVD ---
Procedure Induction method: per pitocin protocol Delivery augmentation: rupture of membranes and pitocin Delivery monitor: external FHT and external uterine Route of delivery: Episiotomy Description: none L&D Laceration Description: perineal - 1st degree Estimated blood loss (mL): 250 Anesthesia type: None Disposition: floor Delivery date: 05/01/25 Gender: female presentation: vertex Placental delivery description: Spontaneous cord description: 3 Vessels
[2025-05-01] MEDS: IBUPROFEN 600 MG TABLET PO ×3 (04:11→21:02)
[2025-05-01] MEDS: BENZOCAINE/MENTHOL 85 GRAM SPRAY BOTTLE 1 APPLIC TOPICAL (08:33)
[2025-05-02] VITALS (7 sets, daily range): BP systolic 102–118; BP diastolic 55–65; PULSE 65–78; TEMP 36.7–37
[2025-05-02] MEDS: IBUPROFEN 600 MG TABLET PO ×3 (04:19→20:46)
[2025-05-02 06:50] LABS: Basophils Percent Auto 0.3 % (0.2-2.0); Eosinophils Absolute Auto 0.1 10^3/uL (0.0-0.7); Eosinophils Percent Auto 0.8 % (0.9-7.0); Hematocrit 31.1 % (36.0-48.0); Hemoglobin 10.4 g/dL (12.0-16.0); Immature Granulocytes Abs Auto 0.09 10^3/uL (0.00-0.03); Immature Granulocytes Pct Auto 0.8 % (0.0-0.5); Lymphocytes Absolute Auto 2.2 10^3/uL (1.2-3.8); Lymphocytes Percent Auto 18.4 % (20.5-60.0); Mean Corpuscular HGB Conc 33.4 g/dL (29.9-35.2); Mean Corpuscular Volume 83.6 fL (81.0-99.0); Mean Platelet Volume 9.6 fL (9.5-13.5); Monocytes Absolute Auto 0.7 10^3/uL (0.3-0.8); Monocytes Percent Auto 6.2 % (1.7-12.0); Neutrophils Absolute Auto 8.7 10^3/uL (1.4-6.5); Neutrophils Percent Auto 73.5 % (43.0-75.0); Platelet Count 260 10^3/uL (150-450); Red Blood Count 3.72 10^6/uL (4.20-5.40); Red Cell Distribution Width 13.8 % (11.0-15.0); White Blood Count 11.9 10^3/uL (4.0-11.0)
[2025-05-02] MEDS: DOCUSATE SODIUM 100 MG CAPSULE PO ×2 (10:15→20:47)
--- NOTE | 2025-05-02 10:19 | PC.NURSE ---
Given teaching folder and explained contents of same, given IPAD with instructions to watch , and SIDS videos. Shilpi and partner verbalize understanding
--- NOTE | 2025-05-02 11:03 | P.OBPN_ITS ---
OB - PN: Subj Subjective Patient comments: no complaints, pain well controlled, tolerating diet and flatus present [place] status: doing well and well [place] feeding status: exclusively Exam Constitutional Vital Signs, click to edit/add: Last Vital Signs Temp 98.1 F 05/02/25 08:45 Pulse 67 05/02/25 08:40 Resp 16 05/02/25 08:45 BP 102/55 05/02/25 08:40 O2 Del Method Room Air 05/02/25 00:05 Documenting provider has reviewed patient's vital signs: yes Common normals: no apparent distress, average body habitus, oriented x3, no limitations, healthy appearing, alert and well nourished General appearance: cooperative, comfortable, well kempt and well developed Orientation/consciousness: Yes awake, Yes oriented to person, Yes oriented to place and Yes oriented to time Chest Common normals: inspection of breasts normal GI Common normals: Normal to inspection, nondistended, normoactive bowel sounds present, soft to palpation and non-tender (Fundus is firm and 1 fingerbreadth below umbilicus.) Back & Pelvis Pelvis: other (Mild lochia rubra is present.) Extremity Common normals: normal to inspection, no calf tenderness and no pedal edema Results Labs Labs: Short CBC 05/02/25 Range/Units 06:32 WBC 11.9 H (4.0-11.0) 10^3/uL Hgb 10.4 L (12.0-16.0) g/dL Hct 31.1 L (36.0-48.0) % Plt Count 260 (150-450) 10^3/uL OB - PN: A/P Assessment and Plan (1) H/O eye surgery: Plan WillPatient is postponing #1 progressing well. Supportive care. Plan - Vaginal Delivery day: 1 Plan: routine care Time Spent with Patient Time: Total time spent is greater than 50% in coordination of care (as documented) at patient's floor/unit and/or counseling patient: Total time spent with greater than 50% in coordination of care (as documented) at patient's floor/unit and/or counseling patient: less than 15 minutes
[2025-05-02] MEDS: GLYCERIN/WITCH HAZEL PADS 1 PAD TOPICAL (22:43)
[2025-05-03] MEDS: IBUPROFEN 600 MG TABLET PO (05:05)
[2025-05-03 08:54] VITALS: BP 101/61; PULSE 61
[2025-05-03] MEDS: DOCUSATE SODIUM 100 MG CAPSULE PO (08:59)
[2025-05-03 09:00] VITALS: BP 101/61; PULSE 61; TEMP 36.9
--- NOTE | 2025-05-03 10:44 | PM.OBDS ---
DS: Providers Provider Date of admission: 04/30/25 21:08 Primary care physician: BUCKY COREA Admitting clinician: El Espitia Attending physician on admission: El Espitia Consults: 04/30/25 Consult to Anesthesiology Routine Consulting Provider: El Espitia Reason for consultation: Epidural Attending physician on discharge: Nadir Faith Discharging clinician: Nadir Faith Anticipated date of discharge: 05/03/25 DS: Diagnosis Discharge Diagnosis (1) H/O eye surgery: Assessment and plan: Stable. Continue current management Plan Stable. Continue current management OB - DS: Summary Hospital Course Hospital Course: Uneventful hospital course Time spent discussing smoking cessation with patient: 3 to 10 minutes Peripartum Data - Vaginal Delivery Laceration description: none Complications complications: none Infant Delivery method: spontaneous vaginal delivery Gender: female Discharge plan: home Status at Discharge Cognitive/behavioral status at discharge: Normal Functional status at discharge: independent ambulation Overall status at discharge: patient is back to baseline Time Spent with Patient Time attestation: Total time spent providing and/or coordinating discharge services: Time spent: less than 30 minutes Specific discharge activities: Resume normal activities Exam Constitutional Vital Signs, click to edit/add: Last Vital Signs Temp 98.5 F 05/03/25 09:00 Pulse 61 05/03/25 09:00 Resp 16 05/03/25 09:00 BP 101/61 05/03/25 09:00 O2 Del Method Room Air 05/02/25 23:03 Documenting provider has reviewed patient's vital signs: yes Common normals: no apparent distress, average body habitus, oriented x3, no limitations, healthy appearing, alert and well nourished General appearance: cooperative, comfortable, well kempt and well developed Orientation/consciousness: Yes awake, Yes oriented to person, Yes oriented to place and Yes oriented to time Chest Common normals: inspection of breasts normal GI Common normals: Normal to inspection, nondistended, normoactive bowel sounds present, soft to palpation and non-tender Palpation: soft (Fundus firm and 2 fingerbreadths below the umbilicus.) Back & Pelvis Pelvis: other (Mild lochia rubra is present.) Extremity Common normals: normal to inspection, no calf tenderness and no pedal edema Discharge Plan Discharge Disposition: Home, Self-Care Condition: Good Assessment: Patient is day #2 doing well. Health Concerns: None Plan of Treatment: Routine care Discharge Medications: New acetaminophen [Tylenol] 325 mg Tablet 650 mg PO Q6H PRN (Reason: Mild Pain) 28 Days Qty: 90 0RF Dermoplast (with menthol) 20-0.5 % Aerosol 0.5 spray topical Q2H PRN (Reason: Pain) 28 Days Qty: 1 0RF ibuprofen 600 mg Tablet 600 mg PO Q6H PRN (Reason: Moderate Pain) 28 Days Qty: 120 0RF simethicone [Gas Relief 80 (simethicone)] 80 mg Tablet,Chewable 80 mg PO QID PRN (Reason: Abdominal Distention) 28 Days Qty: 90 0RF [employer] 12.5-50 % Pads, Medicated 28 pad topical Q2H PRN (Reason: Pain) Qty: 90 0RF Discontinued magnesium oxide 400 mg (241.3 mg magnesium) tablet 400 mg PO DAILY Print Language: Belarusian Forms: Portal Instructions
== END 2025-05-03 12:45 | disposition home or self-care (01) | DRG 807 ==
PROVIDERS: Admitting Provider Obstetrics & Gynecology; PCP Nurse Practitioner Family; Visit Provider Obstetrics & Gynecology
DX: O36.5930 Maternal care for other known or suspected poor fetal growth, third trimester, not applicable or unspecified (principal); Z37.0 Single live birth; Z3A.37 37 weeks gestation of pregnancy; O70.0 First degree perineal laceration during delivery
CPT/HCPCS: 36415; 59050; 59410; 80307; 85025; 85027; 86850; 86900; 86901; J2300